=== PATIENT | male | born 1990 | race Hispanic/Latino ===

== ENCOUNTER 2022-09-21 15:24 | Emergency (ER) | payer MEDICAID ==
[~2022-09-21] VITALS: Ht 167.6 cm; Wt 235.9 kg
[2022-09-21 16:52] LABS: BASOPHILS % (AUTO) 0.3 % (0.0-5.0); EOSINOPHILS % (AUTO) 0.2 % (0.0-8.0); HEMATOCRIT 40.7 % (42-54); LYMPHOCYTES % (AUTO) 7.3 % (21.0-51.0); MEAN CORPUSCULAR HEMOGLOBIN 26.2 pg (27.0-33.0); MEAN CORPUSCULAR HGB CONC 30.7 g/dL (32.0-36.0); MEAN CORPUSCULAR VOLUME 85.3 fL (79-99); MONOCYTES % (AUTO) 4.3 % (3.0-13.0); NEUTROPHILS % (AUTO) 87.3 % (40.0-77.0); PLATELET COUNT (AUTO) 283 K/uL (130-400); RED BLOOD CELL COUNT(AUTO) 4.77 MIL/uL (4.50-6.20); RED CELL DISTRIBUTION WIDTH 15.7 % (11.0-15.5)
[2022-09-21 17:30] LABS: CARBON DIOXIDE 28 mmol/L (21-32); CHLORIDE 102 mmol/L (101-111); CREATININE 1.2 mg/dL (0.5-1.5); GLOMERULAR FILTR. RATE CALC 82 mL/min (>90); GLUCOSE,RANDOM 132 mg/dL (70-105); POTASSIUM 4.5 mmol/L (3.5-5.1); SODIUM SERUM 137 mmol/L (136-145); UREA NITROGEN, BLOOD 11 mg/dL (7-18)
[2022-09-21 17:35] LABS: ALANINE AMINOTRANSFERASE 50 U/L (12-78); ALBUMIN 3.5 g/dL (3.5-5.0); ASPARTATE AMINOTRANSFERASE 24 U/L (10-37); TOTAL PROTEIN, SERUM 7.9 g/dL (6.0-8.3)
[2022-09-21 17:36] LABS: LIPASE < 50 U/L (114-286)
[2022-09-21 19:55] LABS: APPEARANCE,URINE CLEAR (CLEAR); BILIRUBIN,URINE NEGATIVE (NEGATIVE); COLOR,URINE COLORLESS (YELLOW); GLUCOSE, URINE (UA) NEGATIVE (NEGATIVE); KETONES,URINE NEGATIVE (NEGATIVE); LEUKOCYTE ESTERASE ,URINE NEGATIVE Leu/uL (NEGATIVE); NITRATE,URINE NEGATIVE (NEGATIVE); OCCULT BLOOD,URINE NEGATIVE (NEGATIVE); PROTEIN,URINE NEGATIVE (NEGATIVE); UROBILINOGEN,URINE 0.2 mg/dL (0.2-1.0)
[2022-09-21 19:57] LABS: RBC,URINE 0-1 /HPF (0-1); WBC,URINE 0-1 /HPF (0-1)
[2022-09-21] MEDS ORDERED: OMEP20TA2 PO (20:06)
[2022-09-21] MEDS ORDERED: ONDA-104 PO (20:06)
[2022-09-21] MEDS ORDERED: 0.9%NACL 1000ML 1,000 ML IV ONE (20:30)
[2022-09-21] MEDS ORDERED: ONDANSETRON 4MG INJ IVP ONE (20:30)
[2022-09-21 21:03] VITALS: BP 133/74
== END 2022-09-21 21:30 | disposition home or self-care (01) ==
LOC: EDH 15:24
DX: R11.2 Nausea with vomiting, unspecified (principal); M54.9 Dorsalgia, unspecified; Z90.49 Acquired absence of other specified parts of digestive tract
CPT/HCPCS: 99283; 96374; 96361; 80053; 83690; 85025; 81001; 36415; J7030; J2405

== ENCOUNTER 2024-02-22 19:55 | Emergency (ER) | payer MEDICAID ==
[~2024-02-22] VITALS: Ht 167.6 cm; Wt 230.9 kg
[~2024-02-22 19:55] MED LIST: OMEP20TA2 PO; ONDA-104 PO
[2024-02-22] MEDS ORDERED: ONDANSETRON 4MG INJ IVP ONE (20:30)
[2024-02-22] MEDS ORDERED: KETOROLAC 30MG VIAL (30MG/ML) IVP ONE (20:30)
[2024-02-22] MEDS ORDERED: 0.9%NACL 1000ML 1,000 ML IV ONE (20:30)
[2024-02-22 20:59] LABS: BASOPHILS # (AUTO) 0.04 K/uL (0.00-0.20); BASOPHILS % (AUTO) 0.3 % (0.0-5.0); EOSINOPHILS # (AUTO) 0.03 K/uL (0.00-0.70); EOSINOPHILS % (AUTO) 0.2 % (0.0-8.0); HEMATOCRIT 38.3 % (42-54); IMMATURE GRANULOCYTE ABSOLUTE 0.09 K/uL (0-1); LYMPHOCYTES # (AUTO) 1.5 K/uL (1.0-4.8); LYMPHOCYTES % (AUTO) 12.3 % (21.0-51.0); MEAN CORPUSCULAR HEMOGLOBIN 24.4 pg (27.0-33.0); MEAN CORPUSCULAR HGB CONC 30.8 g/dL (32.0-36.0); MEAN CORPUSCULAR VOLUME 79.3 fL (79-99); MONOCYTES # (AUTO) 0.8 K/uL (0.1-1.0); MONOCYTES % (AUTO) 6.7 % (3.0-13.0); NEUTROPHILS # (AUTO) 9.9 K/uL (1.8-7.7); NEUTROPHILS % (AUTO) 79.8 % (40.0-77.0); PLATELET COUNT (AUTO) 345 K/uL (130-400); RED BLOOD CELL COUNT(AUTO) 4.83 MIL/uL (4.50-6.20); RED CELL DISTRIBUTION WIDTH 15.9 % (11.0-15.5); WHITE BLOOD COUNT (AUTO) 12.4 K/uL (4.8-10.8)
[2024-02-22 21:13] LABS: CREATININE 1.1 mg/dL (0.5-1.3); POTASSIUM 3.6 mmol/L (3.5-5.1)
[2024-02-22 21:18] LABS: ALBUMIN 3.4 g/dL (3.5-5.0); BILIRUBIN,TOTAL 0.6 mg/dL (0.2-1.0); TOTAL PROTEIN, SERUM 8.7 g/dL (6.0-8.3)
[2024-02-22 21:48] LABS: APPEARANCE,URINE CLEAR (CLEAR); BILIRUBIN,URINE NEGATIVE (NEGATIVE); COLOR,URINE COLORLESS (YELLOW); GLUCOSE, URINE (UA) NEGATIVE (NEGATIVE); KETONES,URINE NEGATIVE (NEGATIVE); LEUKOCYTE ESTERASE ,URINE NEGATIVE Leu/uL (NEGATIVE); NITRATE,URINE NEGATIVE (NEGATIVE); OCCULT BLOOD,URINE NEGATIVE (NEGATIVE); PH,URINE 6.5 (5.0-8.0); PROTEIN,URINE NEGATIVE (NEGATIVE); UROBILINOGEN,URINE 0.2 mg/dL (0.2-1.0)
[2024-02-22 21:57] LABS: ADD UA MICROSCOPIC YES
[2024-02-22 21:59] LABS: WBC,URINE 0-1 /HPF (0-1)
[2024-02-22] MEDS ORDERED: METR-172 PO (22:04)
[2024-02-22] MEDS ORDERED: DICY20TA2 PO (22:04)
[2024-02-22] MEDS ORDERED: ONDA-243 PO (22:04)
[2024-02-22] MEDS: DICYCLOMINE 20MG (10MG/ML) AMP IM ONE (22:46)
[2024-02-22 22:53] VITALS: BP 146/84; PULSE 61; RESP 18; O2SAT 98
== END 2024-02-22 22:56 | disposition home or self-care (01) ==
LOC: EDH 19:55
DX: A08.4 Viral intestinal infection, unspecified (principal); R11.2 Nausea with vomiting, unspecified; R10.84 Generalized abdominal pain; Z79.899 Other long term (current) drug therapy
CPT/HCPCS: 99283; 80053; 83690; 85025; 81001; 36415; 96372; J0500

== ENCOUNTER 2024-10-29 13:34 | Emergency (ER) | payer MEDICAID ==
[~2024-10-29] VITALS: Ht 167.6 cm; Wt 226.8 kg
[~2024-10-29 13:34] MED LIST changes: +DICY20TA2 PO; +METR-172 PO; +ONDA-243 PO
--- NOTE | 2024-10-29 13:49 | ERN ---
ED Note History of Present Illness Stated Complaint: ABD ISSUES CONSTIPATION Chief Complaint: Constipation Time Seen by MD: 13:34 Time Seen by Midlevel: 13:34 Dictation: This is a 34-year-old male with no past medical history who presents to the emergency department with complaints of left side abdominal pain, nausea and nonbloody vomiting, constipation. Reports not having a bowel movement for three weeks. Denies any fevers. Allergies: Coded Allergies: No Known Allergies (Unverified Allergy, Unknown, 09/21/22) Home Meds Discontinued Scripts Dicyclomine HCl (Bentyl) 20 Mg Tab, 20 MG PO Q6HPRN PRN for ABDOMINAL CRAMPING, #15 TAB Prov:MIRLANDE NUNEZ NP 02/22/24 Metronidazole (Metronidazole) 500 Mg Tablet, 500 MG PO TID for 5 Days, #15 TAB Prov:MIRLANDE NUNEZ NP 02/22/24 Ondansetron (Ondansetron Odt) 4 Mg Tab.rapdis, 4 MG PO Q6HPRN PRN for nausea, #16 TAB 0 Refills Prov:MIRLANDE NUNEZ NP 02/22/24 Ondansetron HCl (Ondansetron HCl) 4 Mg Tablet, 4 MG PO TIDP PRN for VOMITING, #30 TAB Prov:PONCHO DASILVA MD 09/21/22 Omeprazole Magnesium (Prilosec Otc) 20 Mg Tablet.dr, 40 MG PO DAILY, #60 TAB Prov:PONCHO DASILVA MD 09/21/22 Past Medical History Past Medical History: No Pertinent History, Other Additional Past Medical Hx: OBESE Surgical History: None Family History: HTN Social History: Negative RN Note Reviewed/Agreed w/PFSH: Yes Review of System Dictation Constitutional: Negative for fever,chills, and weight loss Eyes: Negative for injury, pain,redness, and discharge ENT: Negative for injury,pain or swelling Cardiovascular: Negative for chest pain, palpitations, and edema Respiratory: Negative for shortness of breath, cough, and wheezing, Abdomen/GI: Negative for , diarrhea, and constipation positive for abdominal pain, nausea, vomiting Back: Negative for injury and pain : Negative for injury, bleeding and discharge MS/Extremity: Negative for injury and deformity Skin: Negative for rash, and discoloration Neuro: Negative for headache, weakness, numbness, tingling, and seizure Psych: Negative for suicide ideation, homicidal ideation, and hallucinations Initial Vital Sign VS Vital Signs Date Time Temp Pulse Resp B/P (MAP) Pulse Ox O2 Delivery O2 Flow Rate FiO2 10/29/24 13:36 98.6 79 20 153/78 96 Room Air 10/29/24 13:45 0 21 Physical Exam Dictation Vital Signs reviewed General Appearance: Alert, oriented x 3, no acute distress, well developed, nourished. Obese Head and Face: non-traumatic. Eyes: PERRL, pink conjunctivas, eyelid no trauma, anterior chamber with arcus senilis. Ears: Pinnas intact and no signs of trauma or erythema ear canals clear and no discharge TM no erythema Nose: No discharge, no bleeding. Oropharynx: Mouth normal, tongue pink. pharynx clear,no erythema, tonsils no exudates, no abscesses noted, mucous membrane moist Neck: Supple, non-tender, no thyromegaly, no masses, no JVD, no bruits Breast:Deferred Chest:No tenderness, no crepitus, no paradoxical movement, no retractions Lungs:Clear, well-ventilated, symmetric, no rales, no wheezing, no rhonchi, no stridor, good breath sounds bilaterally Heart: Regular rate, regular rhythm, no murmur, no gallops Vascular: no peripheral edema, Abdomen: Soft, positive bowel sounds, nondistended, no guarding, nontender, no rebound, no masses no hepatomegaly, no splenomegaly, no Camp's sign, no hernias. Rectal: Deferred Genital: Deferred Neurological: Normal speech, motor function intact, sensory function intact Musculoskeletal: Neck nontender, full range of motion, back nontender, full range of motion, Extremities: nontender, full range of motion Skin: Color pink, dry, no turgor, no rash, no lacerations, no abrasions, no contusions. Lymphatic: Deferred Results (Laboratory/Radiology) Laboratory/Radiology Laboratory Tests Test 10/29/24 14:11 10/29/24 14:22 White Blood Count 14.1 K/uL (4.8-10.8) H Red Blood Count 4.40 MIL/uL (4.50-6.20) L Hemoglobin 10.1 g/dL (14.0-18.0) L Hematocrit 33.7 % (42-54) L Mean Corpuscular Volume 76.6 fL (79-99) L Mean Corpuscular Hemoglobin 23.0 pg (27.0-33.0) L Mean Corpuscular Hemoglobin Concent 30.0 g/dL (32.0-36.0) L Red Cell Distribution Width 15.5 % (11.0-15.5) Platelet Count 399 K/uL (130-400) Mean Platelet Volume 9.7 fL (7.5-10.5) Immature Granulocyte % (Auto) 0.8 % (0-1) Neutrophils (%) (Auto) 85.1 % (40.0-77.0) H Lymphocytes (%) (Auto) 9.4 % (21.0-51.0) L Monocytes (%) (Auto) 4.4 % (3.0-13.0) Eosinophils (%) (Auto) 0.1 % (0.0-8.0) Basophils (%) (Auto) 0.2 % (0.0-5.0) Neutrophils # (Auto) 12.0 K/uL (1.8-7.7) H Lymphocytes # (Auto) 1.3 K/uL (1.0-4.8) Monocytes # (Auto) 0.6 K/uL (0.1-1.0) Eosinophils # (Auto) 0.02 K/uL (0.00-0.70) Basophils # (Auto) 0.03 K/uL (0.00-0.20) Absolute Immature Granulocyte (auto 0.11 K/uL (0-1) Nucleated Red Blood Cells 0.0 % (0.0-0.19) White Cell Morphology Comment See comments Red Blood Cell Morphology See comments Sodium Level 137 mmol/L (136-145) Potassium Level 4.0 mmol/L (3.5-5.1) Chloride Level 103 mmol/L (101-111) Carbon Dioxide Level 27 mmol/L (21-32) Blood Urea Nitrogen 12 mg/dL (7-18) Creatinine 1.0 mg/dL (0.5-1.3) Glomerular Filtration Rate Calc 101 mL/min (>90) Random Glucose 120 mg/dL (70-105) H Total Calcium 8.6 mg/dL (8.5-10.1) Lipase 13 U/L (16-77) L Urine Color COLORLESS (YELLOW) Urine Appearance CLEAR (CLEAR) Urine pH 6.5 (5.0-8.0) Urine Specific Mikado 1.001 (1.001-1.031) Urine Protein NEGATIVE mg/dL (NEGATIVE) Urine Glucose (UA) NEGATIVE mg/dL (NEGATIVE) Urine Ketones NEGATIVE mg/dL (NEGATIVE) Urine Occult Blood NEGATIVE (NEGATIVE) Urine Nitrate NEGATIVE (NEGATIVE) Urine Bilirubin NEGATIVE mg/dL (NEGATIVE) Urine Urobilinogen 0.2 mg/dL (0.2-1.0) Urine Leukocyte Esterase NEGATIVE Kelly/uL Urine Opiates Screen NEGATIVE (NEGATIVE) Urine Barbiturates Screen NEGATIVE (NEGATIVE) Urine Phencyclidine Screen NEGATIVE (NEGATIVE) Urine Amphetamines Screen NEGATIVE (NEGATIVE) Urine Benzodiazepines Screen NEGATIVE (NEGATIVE) Urine Cocaine Screen NEGATIVE (NEGATIVE) Urine Marijuana (THC) Screen NEGATIVE (NEGATIVE) Labs Reviewed?: Yes ED Course ED Course Orders Procedure Category Date Status Time Cbc With Differential LAB 10/29/24 Complete 13:43 0.9%Nacl 1000ml (Ns PHA 10/29/24 Complete 1000ml) 14:00 Ondansetron 4mg Inj PHA 10/29/24 Complete (Zofran 4mg Inj) 14:00 Lipase LAB 10/29/24 Complete 13:43 Basic Metabolic Panel LAB 10/29/24 Complete 13:43 Urinalysis Profile LAB 10/29/24 Complete 13:43 Ct Abdomen/Pelvis W/O CT 10/29/24 Resulted Contrast 13:47 Drug Screen Urine LAB 10/29/24 Complete 14:33 Magnesium Citrate PHA 10/29/24 Complete (Magnesium Citrate) 15:30 Ondansetron 4mg Inj PHA 10/29/24 Complete (Zofran 4mg Inj) 15:30 Metoclopramide 10 PHA 10/29/24 Complete Mg/2 Ml Vial (Reglan 1 16:30 Current Medications Medications (Trade) Dose Ordered Sig/Checo Route PRN Reason Start Time Stop Time Status Last Admin Dose Admin Magnesium Citrate (Magnesium Citrate) 296 ml ONCE ONCE PO 10/29/24 15:30 10/29/24 15:31 DC 10/29/24 15:30 Metoclopramide HCl (regLAN 10MG IV) 10 mg ONCE ONCE IVP 10/29/24 16:30 10/29/24 16:31 DC 10/29/24 16:19 Ondansetron HCl (zoFRAN 4MG INJ) 4 mg ONCE ONCE IVP 10/29/24 14:00 10/29/24 14:01 DC 10/29/24 14:32 Ondansetron HCl (zoFRAN 4MG INJ) 4 mg ONCE ONCE IVP 10/29/24 15:30 10/29/24 15:31 DC 10/29/24 15:30 Sodium Chloride 1,000 ml @ 0 mls/hr ONCE ONCE IV 10/29/24 14:00 10/29/24 14:01 DC 10/29/24 14:32 Vital Signs Date Time Temp Pulse Resp B/P (MAP) Pulse Ox O2 Delivery O2 Flow Rate FiO2 10/29/24 15:02 98.1 76 18 138/76 96 Room Air* 0 21 10/29/24 13:45 97.9 74 22 138/88 95 Room Air* 0 21 10/29/24 13:36 98.6 79 20 153/78 96 Room Air Medical Decision Making MDM This is a 34-year-old male with no past medical history who presents to the emergency department with complaints of left side abdominal pain, nausea and nonbloody vomiting, constipation. Reports not having a bowel movement for three weeks. Denies any fevers. CBC showed leukocytosis, microcytic anemia, she showed no electrolyte imbalance, normal renal function, negative lipase, urinalysis and toxicology negative. CT abdomen pelvis showed limited study due to large body habitus. Necessary fat stranding may be present mid and lower abdomen possibly surrounding the sigmoid colon related to peptic colitis. Patient with no fevers at home, no diarrhea. Patient did had three episodes of nonbloody emesis in ER. I discussed the patient is a need for admission due continues vomiting and possible colitis. At this time patient would not like to be admitted at the hospital with preferred to go home and do home treatment.Had a long discussion with patient and mother about the risk and benefits of being admitted to the hospital . They agree that if patient is able to tolerate po intake than he can possibly go home. Reports that Reglan was more helpful with the vomiting and patient was able to tolerated p.o. intake. Patient reports he feels well and wants to go home. Patient will be discharged antiemetic medications and instructed to follow up with PCP. Patient instructed to return if symptoms worsen. Patient currently in no acute distress. On physical exam patient with no tenderness to abdomen, stable vital signs. Nontoxic appearance. Differential diagnosis: Constipation, bowel obstruction, electrolyte imbalance Need for hospitalization: Patient does not meet criteria for hospitalization. There are no social concerns with this patient. DX & DISP Disposition: Discharge Departure Impression: Primary Impression: Constipation Additional Impressions: Colitis, Nausea & vomiting, Leukocytosis Condition: Stable Scripts Lactulose (Lactulose) 10 Gram/15 Ml Solution 30 ML PO BID for constipation, #500 ML 0 Refills Prov: ÓSCAR CARIAS [employer] 525 Metoclopramide HCl (Reglan) 5 Mg Tab 1-2 TAB PO Q6HPRN PRN for nausea, #30 TAB 0 Refills Prov: ARETHAÓSCAR [employer] 5//25 Ciprofloxacin HCl (Cipro) 500 Mg Tablet 1 TAB PO BID for 10 Days, #20 TAB 0 Refills Prov: ÓSCAR CARIAS [employer] 5/25 Additional Instructions: Please follow up with your primary doctor in 1-2 days. Take your medications as prescribed. Continue oral hydration as tolerated. If symptoms worsen please return to ER. FOLLOW-UP WITH PRIMARY CARE PROVIDER IN 1 TO 2 DAYS. TAKE MEDICATIONS DIRECTED HERE IN THE EMERGENCY ROOM. OKAY TO CONTINUE HOME MEDICATIONS UNLESS OTHERWISE DISCUSSED DURING YOUR VISIT IN THE EMERGENCY ROOM TODAY. RETURN TO YOUR NEAREST EMERGENCY ROOM IF SYMPTOMS WORSEN OR IF THERE IS NO IMPROVEMENT. CALL 911 IF YOU NEED IMMEDIATE ASSISTANCE. TAKE TYLENOL OR MOTRIN [id number] NEEDED AND IF NO CONTRAINDICATIONS ARE PRESENT. INCREASE ORAL HYDRATION. A WOUND CULTURE OR URINE CULTURE WAS ORDERED HERE IN THE EMERGENCY ROOM DEPARTMENT PLEASE FOLLOW-UP WITH PRIMARY CARE PROVIDER AND ADVISE THEM TO GET REPEAT PORTS FROM OUR FACILITY. IF YOU HAD ANY ERICKA WRAP/SPLINTS THAT WERE APPLIED HERE, PLEASE DO NOT REMOVE THEM UNTIL YOU SEE YOUR PRIMARY CARE OR SPECIALTY. Referrals: HOMA HERNANDEZ MD (PCP) Time of Disposition: 17:44 I have reviewed the case, and I agree with, Diagnosis and Plan ÓSCAR CARIAS October 29, 2024 13:49
--- NOTE | 2024-10-29 14:05 | NUR ---
SPOKE TO ER CHARGE NURSE CHANDAN, PENDING PATIENT TO BE WEIGHED FOR CT EXAM. NEED TO MAKE SURE PATIENT DOES NOT EXCEED CT TABLE WEIGHT LIMIT.
--- NOTE | 2024-10-29 14:15 | NUR ---
WEIGHT 470.4 LBS AT THE MOMENT
[2024-10-29 14:24] LABS: BASOPHILS # (AUTO) 0.03 K/uL (0.00-0.20); BASOPHILS % (AUTO) 0.2 % (0.0-5.0); EOSINOPHILS # (AUTO) 0.02 K/uL (0.00-0.70); EOSINOPHILS % (AUTO) 0.1 % (0.0-8.0); HEMATOCRIT 33.7 % (42-54); IMMATURE GRANULOCYTE ABSOLUTE 0.11 K/uL (0-1); LYMPHOCYTES # (AUTO) 1.3 K/uL (1.0-4.8); LYMPHOCYTES % (AUTO) 9.4 % (21.0-51.0); MEAN CORPUSCULAR VOLUME 76.6 fL (79-99); MONOCYTES # (AUTO) 0.6 K/uL (0.1-1.0); MONOCYTES % (AUTO) 4.4 % (3.0-13.0); NEUTROPHILS % (AUTO) 85.1 % (40.0-77.0); PLATELET COUNT (AUTO) 399 K/uL (130-400); RED CELL DISTRIBUTION WIDTH 15.5 % (11.0-15.5); WHITE BLOOD COUNT (AUTO) 14.1 K/uL (4.8-10.8)
[2024-10-29 14:32] LABS: APPEARANCE,URINE CLEAR (CLEAR); BILIRUBIN,URINE NEGATIVE (NEGATIVE); COLOR,URINE COLORLESS (YELLOW); GLUCOSE, URINE (UA) NEGATIVE (NEGATIVE); KETONES,URINE NEGATIVE (NEGATIVE); LEUKOCYTE ESTERASE ,URINE NEGATIVE Leu/uL (NEGATIVE); NITRATE,URINE NEGATIVE (NEGATIVE); OCCULT BLOOD,URINE NEGATIVE (NEGATIVE); PH,URINE 6.5 (5.0-8.0); PROTEIN,URINE NEGATIVE (NEGATIVE); UROBILINOGEN,URINE 0.2 mg/dL (0.2-1.0)
[2024-10-29] MEDS: ondanSETRON 4MG INJ IVP ONE ×2 (14:32→15:30)
[2024-10-29] MEDS: 0.9%NACL 1000ML 1,000 ML IV ONE (14:32)
[2024-10-29 14:33] LABS: ADD UA MICROSCOPIC NO
--- NOTE | 2024-10-29 14:51 | HMCIMG ---
CT ABDOMEN/PELVIS W/O CONTRAST HISTORY: Left-sided abdominal pain COMPARISON: None TECHNIQUE: Multiple sequential axial images of the abdomen and pelvis were obtained from the dome of the diaphragm through symphysis pubis. Patient was not given contrast through intravenous route. Oral contrast was not given. FINDINGS: No pleural effusion is seen bilaterally. There are two 3 mm right lower lobe pulmonary nodules. The study is limited due to patient's large body habitus. Degenerative changes of the thoracolumbar spine are present. The heart is not enlarged. Fatty changes of the liver are noted. Mesenteric fat stranding may be present in the mid and lower abdomen possibly surrounding the sigmoid colon may be related to peptic colitis in this limited study. No definite focal abscess is seen. Liver measures 21 cm. Postcholecystectomy changes seen. The liver, spleen, adrenal glands and pancreas are unremarkable. There is no evidence of hydronephrosis bilaterally. No evidence of renal stone is seen. Fecal material is seen in the colon. There are normal size retroperitoneal and mesenteric lymph nodes. No ascites is seen. Appendix is not seen in the evaluation. Acute appendicitis cannot be excluded. Pelvic sidewalls are symmetric bilaterally. The bladder is poorly distended. IMPRESSION: 1. Limited study due to motion artifacts and patient's large body habitus. Mesenteric fat stranding may be present in the mid and lower abdomen possibly surrounding the sigmoid colon may be related to peptic colitis in this limited study. No definite focal abscess is seen. CT was performed with one or more following dose reduction techniques: automated exposure control, adjustment of the mA and kv according to patient's size, or use of a iterative reconstruction technique.
[2024-10-29] MEDS: MAGNESIUM CITRATE 296 ML SOLUTION PO ONE (15:30)
[2024-10-29 16:09] LABS: AMPHET/METH SCREEN,URINE NEGATIVE (NEGATIVE); BARBITURATE SCREEN, URINE NEGATIVE (NEGATIVE); BENZODIAZEPINES SCREEN,URINE NEGATIVE (NEGATIVE); CANNABINOID SCREEN,URINE NEGATIVE (NEGATIVE); COCAINE SCREEN,URINE NEGATIVE (NEGATIVE); OPIATE SCREEN,URINE NEGATIVE (NEGATIVE); PHENCYCLIDINE SCREEN,URINE NEGATIVE (NEGATIVE)
[2024-10-29] MEDS: metoCLOPRAmide 10 MG/2 ML VIAL IVP ONE (16:19)
--- NOTE | 2024-10-29 17:36 | NUR ---
NO HOME MEDICATIONS PER PT.
[2024-10-29 17:47] VITALS: BP 127/68; PULSE 78; RESP 17; TEMP 98.7; O2SAT 98
[2024-10-29] MEDS ORDERED: CIPR-278 PO (17:49)
[2024-10-29] MEDS ORDERED: LACT-441 PO (17:49)
[2024-10-29] MEDS ORDERED: METO5 PO (17:49)
--- NOTE | 2024-10-29 17:57 | NUR ---
PT AAOX4, PT IS STABLE NO DISTRESS, VITALS WNL PT ABLE TO TOLERATE MAG CITRATE MEDICATION, STATES HE FEELS BETTER, AND READY TO GO HOME, IV REMOVED CATHETER INTACT. PT GIVEN RX FOR HOME WILL START TODAY. PT TAKEN OUT IN W/C DRIVEN HOME BY MOTHER.
== END 2024-10-29 18:08 | disposition home or self-care (01) ==
LOC: EDH 13:34
DX: K52.9 Noninfective gastroenteritis and colitis, unspecified (principal); K59.00 Constipation, unspecified; D72.829 Elevated white blood cell count, unspecified; Z79.899 Other long term (current) drug therapy
CPT/HCPCS: 99285; 74176; 96374; 96375; 80048; 80305; 83690; 85025; 36415; 96376; 81003; J7030; J2405 ×2; J2765

== ENCOUNTER 2025-03-25 14:37 | Emergency (ER) | payer MEDICAID ==
[~2025-03-25] VITALS: Ht 167.6 cm; Wt 185.1 kg
[~2025-03-25 14:37] MED LIST changes: +CYCL7.5T27 PO; -DICY20TA2 PO; +IBUP-2076 PO; -METR-172 PO; -OMEP20TA2 PO; -ONDA-104 PO; -ONDA-243 PO
[2025-03-25 14:48] VITALS: BP 136/86; PULSE 100; RESP 18; TEMP 98.3; O2SAT 98
--- NOTE | 2025-03-25 16:26 | HMCIMG ---
EXAM: CR right Knee, 3 View. CLINICAL HISTORY: knee pain COMPARISON: None provided. FINDINGS: BONES: No acute fracture or aggressive appearing osseous lesion. JOINTS: Mild to moderate tricompartmental degenerative changes SOFT TISSUES: The soft tissues are unremarkable. IMPRESSION: Mild to moderate tricompartmental degenerative changes /[place]
[2025-03-25] MEDS ORDERED: KETO10TA2 PO (16:49)
--- NOTE | 2025-03-25 16:50 | ERN ---
General Chief Complaint: Knee Injury/Swelling Stated Complaint: KNEE PAIN Time Seen by MD: 14:41 Time Seen by Midlevel: 14:41 Source: patient History of Present Illness Initial Comments 54-year-old morbidly obese male presents to the emergency department for evaluation of pain. Patient states left knee pain started out of nowhere. Denies any direct injury to the area. Allergies: Coded Allergies: No Known Allergies (Unverified Allergy, Unknown, 09/21/22) Home Meds Active Scripts Ketorolac Tromethamine (Ketorolac Tromethamine) 10 Mg Tablet, 1 TAB PO TID for pain for 5 Days, #15 TAB 0 Refills Prov:SEKOU FULTON 03/25/25 Cyclobenzaprine HCl (Cyclobenzaprine HCl) 7.5 Mg Tablet, 1 TAB PO BID for spasm for 5 Days, #10 TAB 0 Refills Prov:AMARIS JAIMES MD 03/08/25 Ibuprofen (Ibuprofen) 400 Mg Tablet, 1 TAB PO TID for pain or fever for 10 Days, #30 TAB 0 Refills Prov:AMARIS JAIMES MD 03/08/25 Past Medical History Past Medical History: Other Medical History Other: COLON MASS Past Surgical History: Other Surgical History Other: COLON RESECTION WITH COLOSTOMY BAG Family History Family History: HTN Social History Social History: Negative ROS Dictation CONSTITUTIONAL: Negative except for HPI HEAD/FACE: Negative except for HPI EENT: Negative except for HPI RESPIRATORY: Negative except for HPI GASTROINTESTINAL/ABDOMINAL: Negative except for HPI GENITOURINARY: Negative except for HPI MUSCULOSKELETAL: Negative except for HPI INTEGUMENTARY: Negative except for HPI NEUROLOGICAL/PSYCH: Negative except for HPI HEMATOLOGIC/LYMPHATIC: Negative except for HPI All Systems Negative, Except as noted above. 13 point review of systems assessed and all negative except for above. Physical Exam Physical Exam Dictation Vital Signs reviewed General Appearance: Alert, oriented x 3, no acute distress, morbidly obese Head and Face: non-traumatic. Eyes: PERRL, pink conjunctivas, eyelid no trauma, anterior chamber with arcus senilis. Ears: Pinnas intact and no signs of trauma or erythema ear canals clear and no discharge TM no erythema Nose: No discharge, no bleeding. Oropharynx: Mouth normal, tongue pink, pharynx clear,no erythema, tonsils no exudates, no abscesses noted, mucous membrane moist Neck: Supple, non-tender, no thyromegaly, no masses, no JVD, no bruits Breast:Deferred Chest:No tenderness, no crepitus, no paradoxical movement, no retractions Lungs:Clear, well-ventilated, symmetric, no rales, no wheezing, no rhonchi, no stridor, good breath sounds bilaterally Heart: Regular rate, regular rhythm, no murmur, no gallops Vascular: no peripheral edema, Abdomen: Soft, positive bowel sounds, nondistended, no guarding, nontender, no rebound, no masses no hepatomegaly, no splenomegaly, no Camp's sign, no hernias. Rectal: Deferred Genital: Deferred Neurological: Normal speech, motor function intact, sensory function intact Musculoskeletal: Neck nontender, full range of motion, back nontender, full range of motion, Extremities: nontender, full range of motion Skin: Color pink, dry, no turgor, no rash, no lacerations, no abrasions, no contusions. Lymphatic: Deferred MDM MDM: Differential diagnosis: Fracture, contusion, dislocation There are no social concerns with this patient. Prescription drug management Prescriptions will include: ketorolac Medical management and examination interpretation discussions were had by me with other qualified healthcare professionals as indicated for the patient's care. ED Course Orders Procedure Category Date Status Time Knee 3vws Lt RAD 03/25/25 Resulted 15:21 Vital Signs Date Time Temp Pulse Resp B/P (MAP) Pulse Ox O2 Delivery O2 Flow Rate FiO2 03/25/25 14:48 98.2 100 18 136/86 98 Room Air* 0 21 03/25/25 14:40 98.2 106 12 132/89 97 Room Air DX & DISP Disposition: Discharge Departure Impression: Primary Impression: Arthritis of left knee Condition: Stable Scripts Ketorolac Tromethamine (Ketorolac Tromethamine) 10 Mg Tablet 1 TAB PO TID for pain for 5 Days, #15 TAB 0 Refills Prov: SEKOU FULTON 03/25/25 Referrals: MARY LEONARD (PCP) KRISSY CELESTIN MD Time of Disposition: 16:48 I have reviewed the case, and I agree with, Diagnosis and Plan I performed the substantive portion of the visit. I have reviewed and personally made and approve the management plan that is documented in the note by myself or the ALISTAIR. I acknowledge for responsibility for the patient's [place] gement plan. SEKOU FULTON Mar 25, 2025 16:50
== END 2025-03-25 17:01 | disposition home or self-care (01) ==
LOC: EDH 14:37
DX: M17.12 Unilateral primary osteoarthritis, left knee (principal); E66.01 Morbid (severe) obesity due to excess calories; Z68.44 Body mass index [BMI] 60.0-69.9, adult; Z79.1 Long term (current) use of non-steroidal anti-inflammatories (NSAID); Z93.3 Colostomy status; Z79.899 Other long term (current) drug therapy
CPT/HCPCS: 73562; 99283

== ENCOUNTER 2025-04-19 19:13 | Inpatient (IN) | payer MEDICAID ==
[~2025-04-19] VITALS: Ht 167.6 cm; Wt 167.1 kg
[~2025-04-19 19:13] MED LIST changes: +KETO10TA2 PO
--- NOTE | 2025-04-19 19:42 | ERN ---
ED Note History of Present Illness Stated Complaint: KNEE PAIN Chief Complaint: Knee Injury/Swelling Time Seen by MD: 19:19 Dictation: Patient is a 35-year-old male morbid obesity who presents to the ER by EMS due to right knee pain, pain has been chronic, today he was only able to walk due to pain, as per patient's he feels that his knee was locked. Patient denies recent fall. Family member at bedside, mother states that patient has been seen by specialists in the was told that he has osteoarthritis. Allergies: Coded Allergies: No Known Allergies (Unverified Allergy, Unknown, 09/21/22) Home Meds Active Scripts Acetaminophen (Tylenol) 500 Mg Tab, 1 TAB PO Q6HPRN PRN for pain or fever for 10 Days, #40 TAB 0 Refills Prov:AMARIS JAIMES MD 04/19/25 Ibuprofen (Ibuprofen) 600 Mg Tablet, 1 TAB PO TID for pain for 10 Days, #30 TAB 0 Refills with food Prov:AMARIS JAIMES MD 04/19/25 Ketorolac Tromethamine (Ketorolac Tromethamine) 10 Mg Tablet, 1 TAB PO TID for pain for 5 Days, #15 TAB 0 Refills Prov:SEKOU FULTON 03/25/25 Cyclobenzaprine HCl (Cyclobenzaprine HCl) 7.5 Mg Tablet, 1 TAB PO BID for spasm for 5 Days, #10 TAB 0 Refills Prov:AMARIS JAIMES MD 03/08/25 Ibuprofen (Ibuprofen) 400 Mg Tablet, 1 TAB PO TID for pain or fever for 10 Days, #30 TAB 0 Refills Prov:AMARIS JAIMES MD 03/08/25 Past Medical History Past Medical History: Other Additional Past Medical Hx: COLON MASS, COLOSTOMY BAG, OBESITY Surgical History: Other Surgical History Other: COLON RESECTION WITH COLOSTOMY BAG Family History: HTN Social History: Negative Review of System Dictation NEGATIVE EXCEPT PER HPI Constitutional: Negative for fever,chills, and weight loss Eyes: Negative for injury, pain,redness, and discharge ENT: Negative for injury,pain or swelling Cardiovascular: denies chest pain, palpitations, and edema Respiratory: Negative for shortness of breath, cough, and wheezing, Abdomen/GI: Negative for abdominal pain, nausea, vomiting, diarrhea, and constipation Back: Negative for injury and pain : Negative for injury, bleeding and discharge MS/Extremity: Right knee pain Skin: Negative for rash, and discoloration Neuro: Negative for headache, weakness, numbness, tingling, and seizure Psych: Negative for suicide ideation, homicidal ideation, and hallucinations Initial Vital Sign VS Vital Signs Date Time Temp Pulse Resp B/P (MAP) Pulse Ox O2 Delivery O2 Flow Rate FiO2 04/19/25 19:15 98.1 101 18 168/119 95 Room Air 0 04/19/25 20:08 21 Physical Exam Dictation General: awake, alert, NAD Head/Face: Normocephalic, atraumatic Eyes: PERRL, EOMI, vision at baseline ENT: oral cavity clear, TMs clear, no signs of infection Neck: Trachea midline, supple, no nuchal rigidity Cardiovascular: RRR, normal S1/S2, No MRGs, no JVD Respiratory: CTAB, no respiratory distress, No rales or wheezes Abdomen: Soft , no tender Skin: Warm, dry, normal turgor, no rash MS/Extremity: Pulses equal, no cyanosis, neurovascular intact, FROM Neuro: COAx4, GCS 15, strength 5/5, CN 2-12 intact, normal cerebellar exam, normal gait, Psych: Normal behavior, mood, and affect normal ED Course ED Course Orders Procedure Category Date Status Time Knee 4+Vws Rt RAD 04/19/25 Resulted 19:31 Ketorolac PHA 04/19/25 Complete Tromethamine 30mg/Ml 20:00 Acetaminophen 500mg PHA 04/19/25 Complete Tab (Tylenol 500mg T 20:30 Lidocaine (Lidocaine PHA 04/19/25 Complete Patch 4%) 20:30 Current Medications Medications (Trade) Dose Ordered Sig/Checo Route PRN Reason Start Time Stop Time Status Last Admin Dose Admin Acetaminophen (TYLenol 500MG TAB) 1,000 mg ONCE ONCE PO 04/19/25 20:30 04/19/25 20:34 DC 04/19/25 20:53 Ketorolac Tromethamine (toRADol) 30 mg ONCE ONCE IM 04/19/25 20:00 04/19/25 20:01 DC 04/19/25 20:26 Lidocaine (Lidocaine Patch 4%) 1 each ONCE ONCE TP 04/19/25 20:30 04/19/25 20:34 DC 04/19/25 20:52 Vital Signs Date Time Temp Pulse Resp B/P (MAP) Pulse Ox O2 Delivery O2 Flow Rate FiO2 04/19/25 20:08 98.1 102 18 130/84 93 Room Air* 0 21 04/19/25 19:15 98.1 101 18 168/119 95 Room Air 0 Medical Decision Making MDM Right knee pain chronic Right knee pain acute Possible fracture affecting the knee On physical exam range of motion was within normal limits. There was no pain. Negative for pain during active/passive range of motion. X-ray of right knee ordered. Pain medication ordered. CR right Knee, 3 View. CLINICAL HISTORY: KNEE PAIN COMPARISON: None provided. FINDINGS: Lateral compartment predominant moderate to severe tricompartmental right knee joint osteoarthritis. Small knee joint effusion. No displaced fracture appreciated. Mild infrapatellar bursitis. IMPRESSION: 1. Moderate to severe tricompartmental right knee osteoarthritis, predominantly in the lateral compartment, with small joint effusion. 2. No acute fracture. No acute fracture found. Plan is to discharge home and follow up with the PCP, mother at bedside said the patient can not walk. I explained that patient condition is hemodynamically stable. Patient stated he is still on pain, we will admit him for pain control and case assembler arrangement for social issues. DX & DISP Disposition: Inpatient Decision to Admit Date: Apr 19, 2025 Decision to Admit Time: 21:31 Departure Impression: Primary Impression: Arthritis of left knee Additional Impressions: Intractable pain, Morbid obesity Condition: Stable Scripts Acetaminophen (Tylenol) 500 Mg Tab 1 TAB PO Q6HPRN PRN for pain or fever for 10 Days, #40 TAB 0 Refills Prov: AMARIS JAIMES MD 04/19/25 Ibuprofen (Ibuprofen) 600 Mg Tablet 1 TAB PO TID for pain for 10 Days, #30 TAB 0 Refills with food Prov: AMARIS JAIMES MD 04/19/25 Referrals: MARY LEONARD (PCP) Initially admitted due to intractable pain to his right knee AMARIS JAIMES MD Apr 19, 2025 19:42
--- NOTE | 2025-04-19 20:34 | HMCIMG ---
EXAM: CR right Knee, 3 View. CLINICAL HISTORY: KNEE PAIN COMPARISON: None provided. FINDINGS: Lateral compartment predominant moderate to severe tricompartmental right knee joint osteoarthritis. Small knee joint effusion. No displaced fracture appreciated. Mild infrapatellar bursitis. IMPRESSION: 1. Moderate to severe tricompartmental right knee osteoarthritis, predominantly in the lateral compartment, with small joint effusion. 2. No acute fracture. /[place]
[2025-04-19] MEDS ORDERED: IBUP-1492 PO (20:46)
[2025-04-19] MEDS ORDERED: ACET-66 PO (20:46)
[2025-04-19] MEDS: LIDOCAINE 4% ADH..PATCH TP ONE (20:52)
--- NOTE | 2025-04-19 21:29 | NUR ---
KNEE BRACE APPLIED ORDERED. PATIENT REPORTED UNABLE TO AMBULATE DUE TO RIGHT KNEE PAIN, UNABLE TO SIT INDEPENDENTLY AT BEDSIDE, ED MD AND CHARGE NURSE MADE AWARE.
--- NOTE | 2025-04-19 21:39 | HP ---
History of Present Illness Reason for Visit: knee pain History of Present Illness Mr. Walker is a 35-year-old male that was seen and examined today on 04/19/2025. Patient is a good historian of personal health. Patient's mother is at bedside. Patient reports that he came to the emergency department with a chief complaint of knee pain. Onset is three weeks ago. Duration is on and off. Character is described as aching. Location is right knee. Symptoms are aggravated with physical activity. There was no alleviating factors. Patient reports he has been diagnosed BY an orthopedic doctor in the outpatient setting with osteoarthritis, Dr. Henry three weeks ago. Today in the emergency department no diagnostic labs were done, right knee x-ray shows osteoarthritis. Emergency room physician recommended that patient be admitted so he could be evaluated by orthopedic service. Past Medical History Patient History: Diabetes mellitus FATHER, Onset:Unknown FHx: kidney failure FATHER, Onset:Unknown Hypertension FATHER, Onset:Unknown ADDITIONAL PAST MEDICAL HISTORY: [colon Mass] SOCIAL HISTORY: [Negative for smoking, alcohol use, drug use. Patient lives with his mom, Georgiana Bellamy.] SURGICAL HISTORY: [Colon resection with Colostomy] Review of Systems General: No Fever, No Chills, No Night Sweats, No Fatigue, No Malaise, No Appetite, No Other HEENT: No Head Aches, No Visual Changes, No Eye Pain, No Ear Pain, No Dysphasia, No Sinus Congestion, No Post Nasal Drip, No Sore Throat, No Other Pulmonary: No Dyspnea, No Cough, No Pleuritic Chest Pain, No Other Cardiovascular: No: Chest Pain, Palpitations, Orthopnea, Paroxysmal Noc. Dyspnea, Edema, Lt Headedness, Other Gastrointestinal: No: Nausea, Vomiting, Abdominal Pain, Diarrhea, Constipation, Melena, Hematochezia, Other Genitourinary: No Dysuria, No Frequency, No Incontinence, No Hematuria, No Retention, No Other Musculoskeletal: leg pain; No: other, neck pain, shoulder pain, arm pain, back pain, hand pain, foot pain Skin: No Urticaria, No Rash, No Other Neurological: No: Weakness, Numbness, Incoordination, Change in speech, Confusion, Seizures, Other Allergies: Coded Allergies: No Known Allergies (Unverified Allergy, Unknown, 09/21/22) No Active Prescriptions or Reported Meds Exam Vital Signs Vital Signs Date Time Temp Pulse Resp B/P (MAP) Pulse Ox O2 Delivery O2 Flow Rate FiO2 04/19/25 20:08 98.1 102 18 130/84 93 Room Air* 0 21 General Appearance: Alert, Oriented X3, Cooperative, No acute distress HEENT: Atraumatic, EOMI Respiratory: Clear to auscultation, Normal air movement, NL respiratory effort Cardiovascular: Regular rate, Regular rhythm, Normal S1, Normal S2 Abdominal: Normal bowel sounds, Soft, No tenderness Extremities: No edema Skin: No significant lesion Neuro: Normal speech, Strength at 5/5 X4 ext, Sensation intact, Cranial nerves 3-12 NL Psych/Mental Status: Mental status NL, Mood NL, Thoughts/Content NL Assessment/Plan ASSESSMENT: [ Right knee osteoarthritis, POA Intractable knee pain, POA Obesity, POA] PLAN: [ Admit patient to medical floor as inpatient status. Patient will be followed by orthopedic service, Dr. Henry. Keep patient NPO. IV fluid maintenance therapy lactated Ringer's at 100 mL/HR As needed analgesia with morphine Check preprocedure labs, CBC, BMP, magnesium, phosphorus, PTT, UA, type and screen, EKG, CXR Physical therapy for nine GI prophylaxis, famotidine DVT prophylaxis, Lovenox ADVANCED CARE PLANNING 1. Which of the following were discussed? Hospice Care - Yes Therapeutic options - yes Advance Directives - Yes - patient states he does not have any advance directives in place at this time, however his mother can make decisions for him if he becomes unable Other discussions - patient wishes to remain a full code at this time 2. Discussed with who? Patient 3. Voluntary nature of this service was explained to the patient? Yes 4. Amount of time spent - ___16 minutes____ 5. Reviewed by Physician? (if this service was performed by NPP) Yes This document was generated in part using voice recognition software, occasional wrong word or sound alike substitutions may have occurred due to the inherent limitations of voice recognition software. Read the chart carefully and recognize using context, where the substitutions have occurred. Although every effort was made to edit the content, elementary classroom teacher and typing errors may occur ATTESTATION BY PHYSICIAN I have seen and examined the patient. I reviewed the documentation, medical decision making, and treatment plan as noted by the mid-level provider above. I agree with the findings and plan of care. ] OZZY MALDONADO [facility] Apr 19, 2025 21:39
[2025-04-19] MEDS ORDERED: LACTULOSE 20 GM/30 ML UDCUP PO PRN (22:00)
--- NOTE | 2025-04-19 22:35 | HMCIMG ---
EXAM: CR Chest, 1 View. CLINICAL HISTORY: pre procedural COMPARISON: None provided. FINDINGS: LUNGS: There is no mass, infiltrate, or acute pulmonary abnormality. PLEURAL SPACES: No evidence of pleural effusion or pneumothorax. MEDIASTINUM: There is cardiomegaly BONES: No acute osseous abnormality. IMPRESSION: No acute cardiopulmonary pathology is evident. /[place]
[2025-04-19] MEDS: LACTATED RINGERS 1000ML 1,000 ML IV SCH (23:11)
--- NOTE | 2025-04-19 23:28 | NUR ---
mitzy bank worker at bedside at this time
[2025-04-20] VITALS (8 sets, daily range): BP systolic 131–153; BP diastolic 75–96; PULSE 77–87; RESP 16–22; TEMP 98.2–98.4; O2SAT 97–100
--- NOTE | 2025-04-20 00:09 | NUR ---
report given to cris baca
--- NOTE | 2025-04-20 00:56 | NUR ---
ADMIT NOTE ADMITTED TO ROOM 421 VIA STRETCHER FROM ER, PATIENT AWAKE, ALERT, OX3, NO SOB, NO C/O PAIN AT THIS TIME, RLE WITH IMMOBILIZER INTACT, EXPLAINED TO PATIENT REGARDING BEDREST FOR NOW TILL SABI JUNIOR SEE HIM IN THE MORNING, TEACH PATIENT AND PATIENTS MOTHER PLAN OF CARE AND EXPECTED OUTCOME, BOTH VERBALIZE UNDERSTANDING VIA TEACH BACK
--- NOTE | 2025-04-20 02:56 | EKG ---
[facility] Test Date: 2025-04-19 Test Time: 23:28:20 Pat Name: MARTY BARRON Department: [facility] Room: 421 1 Gender: M Operating Room Surgical Technologist: [id number] : 1990 Requested By: OZZY MALDONADO Order Number: [id number] Reading MD: Rasta Cohen Measurements Intervals [place] Rate: 78 P: 49 ID: [id number] QRS: 16 QRSD: 101 T: 19 QT: 375 QTc: 428 Interpretive Statements Sinus rhythm Compared to ECG 11/16/2024 08:50:56 No significant changes Electronically Signed On 04-20-2025 16:11:53 CDT by Rasta Cohen Please click the below link to view image of tracing.
[2025-04-20 04:52] LABS: IMMATURE GRANULOCYTE ABSOLUTE 0.08 K/uL (0-1); NUCLEATED RED BLOOD CELLS 0.0 % (0.0-0.19); PLATELET COUNT (AUTO) 305 K/uL (130-400); RED BLOOD CELL COUNT(AUTO) 4.55 MIL/uL (4.50-6.20); RED CELL DISTRIBUTION WIDTH 17.8 % (11.0-15.5); WHITE BLOOD COUNT (AUTO) 14.0 K/uL (4.8-10.8)
[2025-04-20 05:00] LABS: CREATININE 0.9 mg/dL (0.5-1.3); GLOMERULAR FILTR. RATE CALC 114.0 mL/min (>90); GLUCOSE,RANDOM 111.0 mg/dL (70-105); INR 1.11 (0.85-1.15); PHOSPHORUS 4.4 mg/dL (2.5-4.9); SODIUM SERUM 141.0 mmol/L (136-145); UREA NITROGEN, BLOOD 17.0 mg/dL (7-18)
[2025-04-20 05:28] LABS: PLATELET MORPHOLOGY LARGE PLTS PRESENT
[2025-04-20] MEDS: FAMOTIDINE 20MG TAB PO SCH (09:15)
[2025-04-20] MEDS: ENOXAPARIN SODIUM 40 MG/0.4 ML SYRINGE SQ SCH (09:16)
--- NOTE | 2025-04-20 09:27 | NUR ---
DCP: HOME Sw met with pt and his mother Lynne Walker [phone] who was at bedside. Mother reports pt lives at home with his parents and his sister. Pt on SSI and requires assistance with bathing dressing grooming, home management, meal prep and transportation. Mother is pt's provider 25 hrs a week thru [employer]. Pt has a walker with seat, cane and CPAP. No HH. Pt is pending Dr Henry to round and discuss plan of care. Mother to discuss after care HH vs Outpt PT with Dr Henry. CM to follow and assist as needed Addendum: 04/20/25 at 0932 by SHAWN CHAPA Amended: Links added.
[2025-04-20 10:16] LABS: % IRON SATURATION 10.6 % (30-44); IRON, SERUM 25.0 mcg/dL (65-175)
--- NOTE | 2025-04-20 13:16 | NUR ---
SPEECH NOTE: QC SCIENTIST coordinated with nurse Mckee. Orders to evaluate patient received; however, as per nurse, order entered by error and will be cancelled. Pt tolerating oral intake with no overt s/s of aspiration. All questions answered. Addendum: 04/20/[address] TOMAS MEJIA Amended: Links added.
--- NOTE | 2025-04-20 13:21 | PN ---
[facility] PROGRESS NOTE Date of Service: Apr 20, 2025 Time of Service: 13:18 SUBJECTIVE: 04/20 the patient has been seen and examined at bedside, case discussed with the RN, no acute events overnight, the time of my visit, the patient is awake, following commands, blood pressure 140/90, afebrile, saturating normal on room air. The patient is morbidly obese, he uses a CPAP at home, currently CPAP at bedside during my visit. WBC 14.0, hemoglobin 10.4, hematocrit 34.8, platelet count of 305. CMP shows sodium 141, potassium 3.5, BUN 70, creatinine 0.9, iron level of 25. X-ray of the knee showing moderate to severe three, power mental right knee osteoarthritis, predominantly in the lateral compartment, with small joint effusion. No acute fracture. Orthopedic physician consultation requested, we will follow input and recommendation. MRI of the right knee requested, however due to morbid obesity, might not be able to do it. Discussed with the mother is at the bedside, all questions answered, in agreement. REVIEW OF SYSTEMS CONSTITUTIONAL: Denies fevers, chills, or night sweats. No unintentional weight loss reported. NEUROLOGICAL: Denies headache, amaurosis fugax, motor weakness, sensory deficit, vertigo/spinning sensation, gait abnormalities, or tremors. ENT: No hearing loss, otalgia, otorrhea, rhinitis, rhinorrhea, hoarseness, or sore throat. CARDIOVASCULAR: Denies any exertional angina, dyspnea on exertion, orthopnea, paroxysmal nocturnal dyspnea, palpitations, life-threatening arrhythmias, claudication. PULMONARY: Denies any shortness of breath, cough, phlegm/sputum, hemoptysis, pleuritic chest pain. SLEEP: Denies morning headaches, daytime somnolence or napping. Denies difficulty falling asleep, staying asleep, waking from sleep. Denies knowledge of snoring. GASTROINTESTINAL: Denies any type of dysphagia to either liquids or solids. Denies nausea, vomiting, pyrosis, early satiety, abdominal pain, diarrhea, constipation, or changes in stool consistency or caliber. Denies coffee-ground emesis, hematemesis, hematochezia, or melanotic stools. GENITOURINARY: Denies frequency, urgency, nocturia, hematuria or incontinence (Storage/Irritative symptoms.) Low urinary stream, straining to void, urinary intermittency or hesitancy, splitting of the voiding stream, terminal dribbling. ENDOCRINOLOGIC: Denies polyuria, polydipsia, polyphagia or heat/cold intolerances. HEMATOLOGIC: Denies thrombophilia/previous clots, or coagulopathy/bleeding disorders. ONCOLOGIC: Denies personal history of malignancy. DERMATOLOGIC: Denies rashes or pruritus. PSYCHIATRIC: Denies any suicidal or homicidal ideation. Denies hallucinations. PHYSICAL EXAM GENERAL APPEARANCE: The patient is awake, alert, and oriented, in no acute cardiopulmonary distress. NEUROLOGICAL: Cranial nerves II-XII grossly intact. Motor is 5/5 in bilateral upper and lower extremities proximal to distal. No sensory deficits. HEENT: Face is symmetric. Pupils are equal and reactive. Extraocular movements are intact. NECK: Supple. No JVD. No thyromegaly. No submental, submandibular, pre- /postauricular, occipital or supraclavicular lymphadenopathy. CHEST: Normal chest expansion. No Telemetry. LUNGS: Absence of any rales, rhonchi or any wheezing. CARDIOVASCULAR: Regular. S1 and S2 normal. No appreciable rubs, murmurs or gallops. ABDOMEN: Soft, nontender, and nondistended. There is no rebound, voluntary guarding, or rigidity. : Deferred. No Doe. EXTREMITIES: Non-edematous and not cyanotic. No clubbing. Good capillary refill. SKIN: No skin breakdown. Vital Signs (last 8hr) Date Time Temp Pulse Resp B/P (MAP) Pulse Ox O2 Delivery O2 Flow Rate FiO2 04/20/25 12:23 Room Air* 0 21 04/20/25 08:40 98.2 80 140/90 94 Room Air 04/20/25 06:32 80 18 21 LABS: Laboratory: Test 04/20/25 04:39 Range/Units White Blood Count 14.0 H 4.8-10.8 K/uL Red Blood Count 4.55 4.50-6.20 MIL/uL Hemoglobin 10.4 L 14.0-18.0 g/dL Hematocrit 34.8 L 42-54 % Mean Corpuscular Volume 76.5 L 79-99 fL Mean Corpuscular Hemoglobin 22.9 L 27.0-33.0 pg Mean Corpuscular Hemoglobin Concent 29.9 L 32.0-36.0 g/dL Red Cell Distribution Width 17.8 H 11.0-15.5 % Platelet Count 305 130-400 K/uL Mean Platelet Volume 11.1 H 7.5-10.5 fL Immature Granulocyte % (Auto) 0.6 0-1 % Neutrophils (%) (Auto) 81.1 H 40.0-77.0 % Lymphocytes (%) (Auto) 10.6 L 21.0-51.0 % Monocytes (%) (Auto) 6.3 3.0-13.0 % Eosinophils (%) (Auto) 1.0 0.0-8.0 % Basophils (%) (Auto) 0.4 0.0-5.0 % Neutrophils # (Auto) 11.4 H 1.8-7.7 K/uL Lymphocytes # (Auto) 1.5 1.0-4.8 K/uL Monocytes # (Auto) 0.9 0.1-1.0 K/uL Eosinophils # (Auto) 0.14 0.00-0.70 K/uL Basophils # (Auto) 0.06 0.00-0.20 K/uL Absolute Immature Granulocyte (auto 0.08 0-1 K/uL Nucleated Red Blood Cells 0.0 0.0-0.19 % Platelet Morphology LARGE PLTS PRESENT Red Blood Cell Morphology ANISO 1+ Prothrombin Time 11.6 9.6-11.6 SEC Prothromb Time International Ratio 1.11 0.85-1.15 Activated Partial Thromboplast Time 25.3 L 26.3-35.5 SEC Sodium Level 141 136-145 mmol/L Potassium Level 3.5 3.5-5.1 mmol/L Chloride Level 104 101-111 mmol/L Carbon Dioxide Level 26 21-32 mmol/L Blood Urea Nitrogen 17 7-18 mg/dL Creatinine 0.9 0.5-1.3 mg/dL Glomerular Filtration Rate Calc 114 >90 mL/min Random Glucose 111 H 70-105 mg/dL Total Calcium 9.1 8.5-10.1 mg/dL Phosphorus Level 4.4 2.5-4.9 mg/dL Magnesium Level 2.10 1.80-2.40 mg/dL Iron Level 25 #L 65-175 mcg/dL Total Iron Binding Capacity 235 L 250-450 mcg/dL Percent Iron Saturation 10.6 L 30-44 % Current Medications Medications (Trade) Dose Ordered Sig/Checo Route PRN Reason Start Time Stop Time Status Last Admin Dose Admin Acetaminophen (TYLenol 325MG TAB) 650 mg Q6H PRN PO TEMPERATURE GREATER THAN 101.5 04/19/25 22:00 05/19/25 21:59 Ceftriaxone Sodium (ROCEphine 1G INJ) 1 gm Q24H IVPB 04/20/25 10:00 04/30/25 09:59 04/20/25 10:42 1 GM Enoxaparin Sodium (Lovenox) 40 mg DAILY SQ 04/20/25 09:00 05/20/25 08:59 04/20/25 09:16 40 MG Famotidine (Pepcid 20mg Tab) 20 mg DAILY PO 04/20/25 09:00 05/20/25 08:59 04/20/25 09:15 20 MG Hydralazine HCl (APRESOLine 20MG INJ) 5 mg Q6H PRN IV For:SBP above 160;DBP above 90 04/20/25 16:00 05/20/25 15:59 Hydralazine HCl (APRESOLine 20MG INJ) 10 mg Q6H PRN IV For:SBP above 160;DBP above 90 04/19/25 22:00 04/20/25 10:52 DC Ketorolac Tromethamine (toRADol) 15 mg Q6H PRN IV MODERATE PAIN (4-6) 04/20/25 11:00 04/25/25 10:59 04/20/25 11:28 15 MG Lactated Ringer's 1,000 ml @ 100 mls/hr Q10H IV 04/19/25 22:00 04/20/25 10:52 DC 04/20/25 09:24 100 MLS/HR Lactulose (Constulose 20gm/ 30ml Udcup) 20 gm BID PRN PO CONSTIPATION 04/19/25 22:00 05/19/25 21:59 Morphine Sulfate (morPHINE 4MG SYG) 4 mg Q4H PRN IVP SEVERE PAIN (7-10) 04/19/25 22:00 04/20/25 10:52 DC Ondansetron HCl (zoFRAN 4MG INJ) 4 mg Q6H PRN IV NAUSEA/VOMITING 04/19/25 22:00 05/19/25 21:59 DIAGNOSTICS / RADIOLOGY: [ ] ASSESSMENT: Right knee osteoarthritis, POA Intractable knee pain, POA Obesity, POA PLAN: the patient has been seen and examined at bedside, case discussed with the RN, no acute events overnight, the time of my visit, the patient is awake, following commands, blood pressure 140/90, afebrile, saturating normal on room air. The patient is morbidly obese, he uses a CPAP at home, currently CPAP at bedside during my visit. WBC 14.0, hemoglobin 10.4, hematocrit 34.8, platelet count of 305. CMP shows sodium 141, potassium 3.5, BUN 70, creatinine 0.9, iron level of 25. X-ray of the knee showing moderate to severe three, power mental right knee osteoarthritis, predominantly in the lateral compartment, with small joint effusion. No acute fracture. Orthopedic physician consultation requested, we will follow input and recommendation. MRI of the right knee requested, however due to morbid obesity, might not be able to do it. Discussed with the mother is at the bedside, all questions answered, in agreement. NEURO: Minimize central acting medications as possible. Fall Precautions. Well lighted room through the day and minimize interruptions through the night to prevent acute delirium. PULMONARY: Supplemental 02 as needed BiPAP as necessary, for respiratory distress Titrate Fio2 to keep Spo2 > or = 90% DuoNebs and CPT as needed IS hourly while awake for pulmonary hygiene prn Out of bed to chair as tolerated Maintain aspiration precautions at all times CARDIOVASCULAR: Follow hemodynamics. Vital signs per facility protocol GI & NUTRITION: Continue nutritional support Aspirations precautions Prokinetic agents and laxatives as needed KIDNEYS & ELECTROLYTES: Strict monitoring of intake and output Daily weights Avoid nephrotoxic agents Monitor electrolytes and replace as needed Goal urine output of 30mL/hr or 0.5mL/kg/hr Medications to be dosed according to renal function. Avoid contrast if possible ENDOCRINE: Maintain blood glucose between 100-180 at all times. Insulin sliding scale for blood glucose management Hypoglycemia and hyperglycemia protocol in place INFECTIOUS DISEASE: Trend temperature, WBC and procalcitonin level Follow cultures, deescalate antibiotics as soon as possible. Panculture if new onset fever HEMATOLOGY & COAGULATION: Monitor H&H. Keep Hgb > 7 Transfuse 1 unit of PRBC for Hgb < 7 Transfuse 1 pack of platelets of platelets < 20, 000 Watch for any signs and symptoms of bleeding SKIN: Pressure ulcer prevention per facility protocol Specialty mattress as needed ORTHO/REHAB Continue PT/OT PRN: MEDICATIONS Tylenol 650 mg po every 4 hrs for fever zofran 4 mg IV every 6 hrs for n/v Hydralazine 5 mg IV every 4 hrs systolic pressure > 160 bowel regiment: lactulose 20 gm PO BID PRN constipation Supportive measures: Continue GI and DVT prophylaxis Disposition: Pending improvement in clinical condition All questions answered time spent: > 35 min TITA PETERSON MD Apr 20, 2025 13:21
--- NOTE | 2025-04-20 20:35 | NUR ---
ASSESS SHIFT ASSESSMENT DONE, PLEASE REFER TO CHART. KEPT RESTED AND COMFORTABLE IN BED. CALL LIGHT WITHIN REACH. FAMILY AT BEDSIDE.
--- NOTE | 2025-04-20 22:25 | NUR ---
ASSIST PT ASSISTED TO USE THE BEDPAN. PT ABLE TO TURN IN BED WITH ASSIST X2. PT STILL HAD LIQUID STOOLS FROM THE ANUS. PT CLEANED AND RE-POSITIONED IN BED. WET PAD CHANGED WELL. PT CLAIMS OF PAINS TO RT LOWER ABDOMEN. TORADOL IV ADMINISTERED FOR PAIN. WILL RE-ASSESS PT.
[2025-04-21] VITALS (10 sets, daily range): BP systolic 96–142; BP diastolic 45–80; PULSE 91–155; RESP 18–22; TEMP 98.3–102.8; O2SAT 95
--- NOTE | 2025-04-21 04:34 | NUR ---
RE-CHECK PT'S TEMPERATURE [id number]=001.6. KEPT COLD PACKS TO HEAD. KEPT ON THIN BLANKET ONLY. ROOM TEMPERATURE COOL. KEPT NPO FOR MRI TODAY. INSERTED SECOND PIV G18 TO RFA. PT TOLERATED INSERTION WELL. FOR MORE CARE.
[2025-04-21 04:40] LABS: NUCLEATED RED BLOOD CELLS 0.0 % (0.0-0.19); PLATELET COUNT (AUTO) 302.0 K/uL (130-400); RED BLOOD CELL COUNT(AUTO) 5.06 MIL/uL (4.50-6.20); RED CELL DISTRIBUTION WIDTH 18.6 % (11.0-15.5); WHITE BLOOD COUNT (AUTO) 12.7 K/uL (4.8-10.8)
[2025-04-21 04:54] LABS: APPEARANCE,URINE TURBID (CLEAR); GLUCOSE, URINE (UA) NEGATIVE (NEGATIVE); LEUKOCYTE ESTERASE ,URINE NEGATIVE Leu/uL (NEGATIVE); NITRATE,URINE NEGATIVE (NEGATIVE); OCCULT BLOOD,URINE NEGATIVE (NEGATIVE)
[2025-04-21 04:55] LABS: ADD UA MICROSCOPIC YES
[2025-04-21 04:57] LABS: SQUAMOUS EPITHELIAL CELL,UR FEW /HPF (0-2); YEAST,URINE BUDDING MOD /HPF (None Seen)
[2025-04-21 05:07] LABS: AMPHET/METH SCREEN,URINE NEGATIVE (NEGATIVE); BARBITURATE SCREEN, URINE NEGATIVE (NEGATIVE); CANNABINOID SCREEN,URINE NEGATIVE (NEGATIVE); COCAINE SCREEN,URINE NEGATIVE (NEGATIVE)
[2025-04-21 05:21] LABS: CREATININE 0.8 mg/dL (0.5-1.3); GLOMERULAR FILTR. RATE CALC 118.0 mL/min (>90); GLUCOSE,RANDOM 113.0 mg/dL (70-105); SODIUM SERUM 141.0 mmol/L (136-145); UREA NITROGEN, BLOOD 17.0 mg/dL (7-18)
[2025-04-21 05:25] LABS: ASPARTATE AMINOTRANSFERASE 59.0 U/L (10-37); TOTAL PROTEIN, SERUM 7.7 g/dL (6.0-8.3)
--- NOTE | 2025-04-21 06:10 | NUR ---
RE-CHECK PT'S TEMPERATURE RE-[id number]=788.8 ORALLY. COLD PACKS APPLIED TO NAPE AND HEAD. PAGED DIRECTOR OF CORPORATE SALES PLATEN DRIER OPERATOR VIA ANSWERING SERVICE. KAITLIN SIMEON CALLED BACK, DIRECTOR OF CORPORATE SALES STATED TO FOLLOW SEPSIS PROTOCOL. NO OTHER ORDERS GIVEN.
[2025-04-21] MEDS: LIDOCAINE 4% ADH..PATCH TP SCH (08:39)
[2025-04-21] MEDS: DOXYCYCLINE 100MG+NS 250ML 250 ML IV SCH (08:39)
--- NOTE | 2025-04-21 11:15 | PN ---
[facility] PROGRESS NOTE Date of Service: Apr 21, 2025 Time of Service: 11:12 SUBJECTIVE: 04/20 the patient has been seen and examined at bedside, case discussed with the RN, no acute events overnight, the time of my visit, the patient is awake, following commands, blood pressure 140/90, afebrile, saturating normal on room air. The patient is morbidly obese, he uses a CPAP at home, currently CPAP at bedside during my visit. WBC 14.0, hemoglobin 10.4, hematocrit 34.8, platelet count of 305. CMP shows sodium 141, potassium 3.5, BUN 70, creatinine 0.9, iron level of 25. X-ray of the knee showing moderate to severe three, power mental right knee osteoarthritis, predominantly in the lateral compartment, with small joint effusion. No acute fracture. Orthopedic physician consultation requested, we will follow input and recommendation. MRI of the right knee requested, however due to morbid obesity, might not be able to do it. Discussed with the mother is at the bedside, all questions answered, in agreement. 04/21 patient has been seen and examined at bedside, case discussed with the RN, no acute events overnight, the time my visit he is awake, following commands, admits mild dry nonproductive cough, spiked fever 102.6. Denied chest pain, shortness shortness for breath, no nausea, no vomiting, no abdominal discomfort. The patient has a colostomy bag, on examination, liquid stool noted. WBC slowly trending down at 12.7, hemoglobin stable 11.6. Magnesium 1.7. Added doxycycline 100 mg IV q.12 hours. Follow serology to include SARS antigen, influenza and rapid strep. We will give magnesium sulfate 2 g IV x1. We will order GI stool panel. Patient is scheduled for MRI to the right knee today, continue lidocaine patch, discussed with the orthopedic physician today, we will follow input and recommendation. REVIEW OF SYSTEMS CONSTITUTIONAL: Denies fevers, chills, or night sweats. No unintentional weight loss reported. NEUROLOGICAL: Denies headache, amaurosis fugax, motor weakness, sensory deficit, vertigo/spinning sensation, gait abnormalities, or tremors. ENT: No hearing loss, otalgia, otorrhea, rhinitis, rhinorrhea, hoarseness, or sore throat. CARDIOVASCULAR: Denies any exertional angina, dyspnea on exertion, orthopnea, paroxysmal nocturnal dyspnea, palpitations, life-threatening arrhythmias, claudication. PULMONARY: Denies any shortness of breath, cough, phlegm/sputum, hemoptysis, pleuritic chest pain. SLEEP: Denies morning headaches, daytime somnolence or napping. Denies difficulty falling asleep, staying asleep, waking from sleep. Denies knowledge of snoring. GASTROINTESTINAL: Denies any type of dysphagia to either liquids or solids. Denies nausea, vomiting, pyrosis, early satiety, abdominal pain, diarrhea, constipation, or changes in stool consistency or caliber. Denies coffee-ground emesis, hematemesis, hematochezia, or melanotic stools. GENITOURINARY: Denies frequency, urgency, nocturia, hematuria or incontinence (Storage/Irritative symptoms.) Low urinary stream, straining to void, urinary intermittency or hesitancy, splitting of the voiding stream, terminal dribbling. ENDOCRINOLOGIC: Denies polyuria, polydipsia, polyphagia or heat/cold intolerances. HEMATOLOGIC: Denies thrombophilia/previous clots, or coagulopathy/bleeding disorders. ONCOLOGIC: Denies personal history of malignancy. DERMATOLOGIC: Denies rashes or pruritus. PSYCHIATRIC: Denies any suicidal or homicidal ideation. Denies hallucinations. PHYSICAL EXAM GENERAL APPEARANCE: The patient is awake, alert, and oriented, in no acute cardiopulmonary distress. NEUROLOGICAL: Cranial nerves II-XII grossly intact. Motor is 5/5 in bilateral upper and lower extremities proximal to distal. No sensory deficits. HEENT: Face is symmetric. Pupils are equal and reactive. Extraocular movements are intact. NECK: Supple. No JVD. No thyromegaly. No submental, submandibular, pre- /postauricular, occipital or supraclavicular lymphadenopathy. CHEST: Normal chest expansion. No Telemetry. LUNGS: Absence of any rales, rhonchi or any wheezing. CARDIOVASCULAR: Regular. S1 and S2 normal. No appreciable rubs, murmurs or gallops. ABDOMEN: Soft, nontender, and nondistended. There is no rebound, voluntary guarding, or rigidity. : Deferred. No Doe. EXTREMITIES: Non-edematous and not cyanotic. No clubbing. Good capillary refill. SKIN: No skin breakdown. Vital Signs (last 8hr) Date Time Temp Pulse Resp B/P (MAP) Pulse Ox O2 Delivery O2 Flow Rate FiO2 04/21/25 08:00 99.9 150 22 111/66 92 Room Air 04/21/25 07:59 Room Air* 0 21 04/21/25 06:42 155 20 N/A Room Air 21 04/21/25 06:10 102.7 04/21/25 04:34 100.6 04/21/25 04:00 102.6 137 20 137/77 95 Room Air LABS: Laboratory: Test 04/21/25 06:53 04/21/25 04:45 04/21/25 04:20 04/20/25 21:35 Range/Units Lactic Acid Level 2.2 0.8-2.5 mmol/L Urine Color YELLOW YELLOW Urine Appearance TURBID CLEAR Urine pH 6.0 5.0-8.0 Urine Specific Brackney 1.033 H 1.001-1.031 Urine Protein 30 H NEGATIVE mg/dL Urine Glucose (UA) NEGATIVE NEGATIVE mg/dL Urine Ketones 40 H NEGATIVE mg/dL Urine Occult Blood NEGATIVE NEGATIVE Urine Nitrate NEGATIVE NEGATIVE Urine Bilirubin 1 H NEGATIVE mg/dL Urine Urobilinogen 6 H 0.2-1.0 mg/dL Urine Leukocyte Esterase NEGATIVE NEGATIVE Kelly/uL Urine RBC 0-1 0-1 /HPF Urine WBC None 0-1 /HPF Urine Squamous Epithelial Cells FEW 0-2 /HPF Urine Amorphous Crystals (Auto) RARE None Seen /LPF Urine Bacteria FEW None Seen /HPF Urine Yeast MOD None Seen /HPF Urine Opiates Screen NEGATIVE NEGATIVE Urine Barbiturates Screen NEGATIVE NEGATIVE Urine Phencyclidine Screen NEGATIVE NEGATIVE Urine Amphetamines Screen NEGATIVE NEGATIVE Urine Benzodiazepines Screen NEGATIVE NEGATIVE Urine Cocaine Screen NEGATIVE NEGATIVE Urine Marijuana (THC) Screen NEGATIVE NEGATIVE White Blood Count 12.7 H 4.8-10.8 K/uL Red Blood Count 5.06 4.50-6.20 MIL/uL Hemoglobin 11.6 L 14.0-18.0 g/dL Hematocrit 37.6 L 42-54 % Mean Corpuscular Volume 74.3 L 79-99 fL Mean Corpuscular Hemoglobin 22.9 L 27.0-33.0 pg Mean Corpuscular Hemoglobin Concent 30.9 L 32.0-36.0 g/dL Red Cell Distribution Width 18.6 H 11.0-15.5 % Platelet Count 302 130-400 K/uL Mean Platelet Volume 11.1 H 7.5-10.5 fL Nucleated Red Blood Cells 0.0 0.0-0.19 % Sodium Level 141 136-145 mmol/L Potassium Level 3.7 3.5-5.1 mmol/L Chloride Level 103 101-111 mmol/L Carbon Dioxide Level 21 21-32 mmol/L Blood Urea Nitrogen 17 7-18 mg/dL Creatinine 0.8 0.5-1.3 mg/dL Glomerular Filtration Rate Calc 118 >90 mL/min Random Glucose 113 H 70-105 mg/dL Total Calcium 8.9 8.5-10.1 mg/dL Magnesium Level 1.70 L 1.80-2.40 mg/dL Total Bilirubin 1.4 H 0.2-1.0 mg/dL Aspartate Amino Transf (AST/SGOT) 59 H 10-37 U/L Alanine Aminotransferase (ALT/SGPT) 76 12-78 U/L Alkaline Phosphatase 162 H 50-136 U/L Total Protein 7.7 6.0-8.3 g/dL Albumin 2.8 L 3.5-5.0 g/dL Stool Occult Blood NEGATIVE NEGATIVE Test 04/20/25 04:39 Range/Units Immature Granulocyte % (Auto) 0.6 0-1 % Neutrophils (%) (Auto) 81.1 H 40.0-77.0 % Lymphocytes (%) (Auto) 10.6 L 21.0-51.0 % Monocytes (%) (Auto) 6.3 3.0-13.0 % Eosinophils (%) (Auto) 1.0 0.0-8.0 % Basophils (%) (Auto) 0.4 0.0-5.0 % Neutrophils # (Auto) 11.4 H 1.8-7.7 K/uL Lymphocytes # (Auto) 1.5 1.0-4.8 K/uL Monocytes # (Auto) 0.9 0.1-1.0 K/uL Eosinophils # (Auto) 0.14 0.00-0.70 K/uL Basophils # (Auto) 0.06 0.00-0.20 K/uL Absolute Immature Granulocyte (auto 0.08 0-1 K/uL Platelet Morphology LARGE PLTS PRESENT Red Blood Cell Morphology ANISO 1+ Prothrombin Time 11.6 9.6-11.6 SEC Prothromb Time International Ratio 1.11 0.85-1.15 Activated Partial Thromboplast Time 25.3 L 26.3-35.5 SEC Phosphorus Level 4.4 2.5-4.9 mg/dL Iron Level 25 #L 65-175 mcg/dL Total Iron Binding Capacity 235 L 250-450 mcg/dL Percent Iron Saturation 10.6 L 30-44 % Current Medications Medications (Trade) Dose Ordered Sig/Checo Route PRN Reason Start Time Stop Time Status Last Admin Dose Admin Acetaminophen (TYLenol 325MG TAB) 650 mg Q6H PRN PO FEVER/pain 1-3 04/19/25 22:00 05/19/25 21:59 04/21/25 02:20 650 MG Ceftriaxone Sodium (ROCEphine 1G INJ) 1 gm Q24H IVPB 04/20/25 10:00 04/30/25 09:59 04/20/25 10:42 1 GM Doxycycline Hyclate 250 ml @ 125 mls/hr Q12H IV 04/21/25 08:30 05/01/25 08:29 04/21/25 08:39 125 MLS/HR Enoxaparin Sodium (Lovenox) 40 mg DAILY SQ 04/20/25 09:00 05/20/25 08:59 04/21/25 08:40 40 MG Famotidine (Pepcid 20mg Tab) 20 mg DAILY PO 04/20/25 09:00 05/20/25 08:59 04/20/25 09:15 20 MG Hydralazine HCl (APRESOLine 20MG INJ) 5 mg Q6H PRN IV For:SBP above 160;DBP above 90 04/20/25 16:00 05/20/25 15:59 Hydralazine HCl (APRESOLine 20MG INJ) 10 mg Q6H PRN IV For:SBP above 160;DBP above 90 04/19/25 22:00 04/20/25 10:52 DC Ketorolac Tromethamine (toRADol) 15 mg Q6H PRN IV MODERATE PAIN (4-6) 04/20/25 11:00 04/25/25 10:59 04/20/25 22:08 15 MG Lactated Ringer's 1,000 ml @ 100 mls/hr Q10H IV 04/19/25 22:00 04/20/25 10:52 DC 04/20/25 09:24 100 MLS/HR Lactulose (Constulose 20gm/ 30ml Udcup) 20 gm BID PRN PO CONSTIPATION 04/19/25 22:00 05/19/25 21:59 Lidocaine (Lidocaine Patch 4%) 1 each DAILY TP 04/21/25 09:00 05/21/25 08:59 04/21/25 08:39 1 EACH Magnesium Sulfate 50 ml @ 0 mls/hr PROTOCOL IV 04/21/25 08:30 05/21/25 08:29 Morphine Sulfate (morPHINE 4MG SYG) 4 mg Q4H PRN IVP SEVERE PAIN (7-10) 04/19/25 22:00 04/20/25 10:52 DC Ondansetron HCl (zoFRAN 4MG INJ) 4 mg Q6H PRN IV NAUSEA/VOMITING 04/19/25 22:00 05/19/25 21:59 04/21/25 08:36 4 MG DIAGNOSTICS / RADIOLOGY: [ ] ASSESSMENT: Right knee osteoarthritis, POA Intractable knee pain, POA Obesity, POA PLAN: patient has been seen and examined at bedside, case discussed with the RN, no acute events overnight, the time my visit he is awake, following commands, admits mild dry nonproductive cough, spiked fever 102.6. Denied chest pain, shortness shortness for breath, no nausea, no vomiting, no abdominal discomfort. The patient has a colostomy bag, on examination, liquid stool noted. WBC slowly trending down at 12.7, hemoglobin stable 11.6. Magnesium 1.7. Added doxycycline 100 mg IV q.12 hours. Follow serology to include SARS antigen, influenza and rapid strep. We will give magnesium sulfate 2 g IV x1. We will order GI stool panel. Patient is scheduled for MRI to the right knee today, continue lidocaine patch, discussed with the orthopedic physician today, we will follow input and recommendation. NEURO: Minimize central acting medications as possible. Fall Precautions. Well lighted room through the day and minimize interruptions through the night to prevent acute delirium. PULMONARY: Supplemental 02 as needed BiPAP as necessary, for respiratory distress Titrate Fio2 to keep Spo2 > or = 90% DuoNebs and CPT as needed IS hourly while awake for pulmonary hygiene prn Out of bed to chair as tolerated Maintain aspiration precautions at all times CARDIOVASCULAR: Follow hemodynamics. Vital signs per facility protocol GI & NUTRITION: Continue nutritional support Aspirations precautions Prokinetic agents and laxatives as needed KIDNEYS & ELECTROLYTES: Strict monitoring of intake and output Daily weights Avoid nephrotoxic agents Monitor electrolytes and replace as needed Goal urine output of 30mL/hr or 0.5mL/kg/hr Medications to be dosed according to renal function. Avoid contrast if possible ENDOCRINE: Maintain blood glucose between 100-180 at all times. Insulin sliding scale for blood glucose management Hypoglycemia and hyperglycemia protocol in place INFECTIOUS DISEASE: Trend temperature, WBC and procalcitonin level Follow cultures, deescalate antibiotics as soon as possible. Panculture if new onset fever HEMATOLOGY & COAGULATION: Monitor H&H. Keep Hgb > 7 Transfuse 1 unit of PRBC for Hgb < 7 Transfuse 1 pack of platelets of platelets < 20, 000 Watch for any signs and symptoms of bleeding SKIN: Pressure ulcer prevention per facility protocol Specialty mattress as needed ORTHO/REHAB Continue PT/OT PRN: MEDICATIONS Tylenol 650 mg po every 4 hrs for fever zofran 4 mg IV every 6 hrs for n/v Hydralazine 5 mg IV every 4 hrs systolic pressure > 160 bowel regiment: lactulose 20 gm PO BID PRN constipation Supportive measures: Continue GI and DVT prophylaxis Disposition: Pending improvement in clinical condition All questions answered time spent: > 35 min TITA PETERSON MD Apr 21, 2025 11:15
[2025-04-21] MEDS: PoTASSium chloRIDE 20MEQ ER 20 MEQ ERTAB PO ONE (12:06)
[2025-04-21] MEDS: MAGNESIUM 2GM PREMIX 50ML 50 ML IV SCH (12:06)
[2025-04-21] MEDS: LACTATED RINGERS 1000ML 1,000 ML IV SCH (12:42)
[2025-04-21] MEDS ORDERED: GADOTERATE MEGLUMINE 10 MMOL/20 ML VIAL IV ONE (13:44)
[2025-04-21 15:05] LABS: COVID19 (SARS ANTIGEN RAPID) PRESUMPTIVE NEGATIVE (NEGATIVE)
[2025-04-21 15:11] LABS: INFLUENZA TYPE A Negative For Type A (NEGATIVE); INFLUENZA TYPE B Negative For Type B (NEGATIVE)
--- NOTE | 2025-04-21 16:00 | NUR ---
THROWING UP PT THROW UP THREE TIMES DURING THE DAY, GIVE ZOFRAN AND DOCTOR AWARE OF IT.
--- NOTE | 2025-04-21 22:08 | CONS ---
CONSULTING PHYSICIAN: Dr. Usman Hernandez. CONSULTING SERVICE: Hospitalist Service. REASON FOR CONSULT: Right knee pain. HISTORY OF PRESENT ILLNESS: This is a 35-year-old gentleman who is morbidly obese, has been admitted for severe right knee pain. No history of any trauma or falls. He has been having symptoms of right knee pain for many months, but the pain has gotten worse within the last 1-2 weeks. Again, no history of any fevers or chills. Pain was so bad that the patient could not walk and has been admitted for the same. No history of any injections or therapy to the knee. Again, no history of any fevers or chills. No history of any surgeries to the right knee. PAST MEDICAL HISTORY: Positive for morbid obesity. PREVIOUS SURGERIES: Colostomy. ALLERGIES: None. SOCIAL HISTORY: Does not smoke. Does not drink alcohol or use illegal drugs. MEDICATIONS: Reviewed. FAMILY HISTORY: Nothing significant. REVIEW OF SYSTEMS: A 12-system review of systems was negative. PHYSICAL EXAMINATION: GENERAL: The patient is again morbidly obese, awake, alert, and oriented x 3. VITAL SIGNS: Heart rate 79, blood pressure 131/73, oxygen saturation 98% on room air, and respiratory rate 15. NECK: No engorged vein. CHEST: Symmetric motion is seen. ABDOMEN: Soft, nontender. EXTREMITIES: Examination of right knee and right lower extremity shows mild swelling present to the right knee. Tenderness present lateral joint line. Knee joint range of motion is associated with crepitus. Motor and sensory are grossly intact. Toes are warm and pink. Good capillary refill is present. Dorsalis pedis and posterior tibial 1+. DIAGNOSTIC STUDIES: X-rays of the right knee show changes of arthritis present, especially in the lateral compartment. Also, the patient had an MRI done, which was reviewed by me. I did not see any obvious fractures or dislocation seen. I did not see any obvious signs of any infection, but we will await for the final report from the radiologist. Laboratory investigations were also reviewed. ASSESSMENT AND PLAN: A 35-year-old gentleman with right knee osteoarthritis, possibly a flare-up of arthritis. I had a detailed conversation with the patient and family regarding his condition and told them the treatment options available and the risks and benefits. All questions and concerns were answered in detail. The patient has got bad arthritis and would finally benefit from a knee replacement, but considering his morbid obesity, it is not to be indicated right now, so I would just recommend heating pads to the right knee, anti-inflammatory medications, then he can use a walker to walk, and once the weight reduction has been done, then patient may be planned for any operative procedure. Ortho will sign off. Please call us for any questions or concerns. TID: [id number] RECEIPT: [id number]
[2025-04-22] VITALS (42 sets, daily range): BP systolic 110–153; BP diastolic 65–97; PULSE 68–123; RESP 16–46; TEMP 97.9–98.3; O2SAT 90–96
--- NOTE | 2025-04-22 01:20 | HMCIMG ---
MR RIGHT LOWER EXTREMITY WITH AND WITHOUT IV CONTRAST, KNEE Clinical Details: Knee pain and restricted movement. Technique: Multisequence, multiplanar magnetic resonance images of the right knee were obtained with and without intravenous contrast. Series acquired include axial T2, axial T1, axial STIR, coronal PD and PD FS, coronal STIR, sagittal PD and T2, and post-contrast sagittal, coronal, and axial T1 FS sequences. Findings: Joint: Tricompartmental osteoarthritis with diffuse cartilage thinning and osteophytosis. Menisci: Medial meniscus shows extrusion measuring 0.7 cm with a degenerative complex tear involving the body and posterior horn. Lateral meniscus demonstrates extensive degeneration and complex tear involving the body and posterior horn. Articular Cartilage: There is a full-thickness chondral defect with subchondral marrow oedema involving the middle and posterior weight-bearing surface of the lateral femoral condyle. Cartilage thinning is noted across the patellofemoral and medial compartments. Subchondral Bone: Reactive oedema is noted corresponding to the chondral defects. Ligaments: The anterior cruciate ligament is intact. The posterior cruciate ligament is intact. The lateral collateral ligament is intact. The medial collateral ligament is intact. Effusion: A small joint effusion is present with synovial enhancement post-contrast, compatible with synovitis. Soft Tissues: No mass or cystic lesion is identified. Tendons: The quadriceps tendon is intact. The patellar tendon is intact. The lateral gastrocnemius tendon is intact. The medial gastrocnemius tendon is intact. The iliotibial band is intact. The popliteus tendon is intact. Bones: No acute fracture or aggressive osseous lesion is identified. Bone marrow signal intensity is within normal limits. Muscles: The visualized muscles demonstrate normal girth and signal intensity. Retinacula: The medial and lateral patellar retinacula are intact. Impression: * Tricompartmental osteoarthritis (Kellgren???Jose grade III) with osteophytosis and diffuse cartilage loss. * Medial and lateral menisci with complex degenerative tears involving posterior horns and bodies, meniscal tear severity grade III (modified Valentin classification). 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 * Small reactive joint effusion with mild synovitis. /[place]
[2025-04-22 04:47] LABS: NUCLEATED RED BLOOD CELLS 0.0 % (0.0-0.19); PLATELET COUNT (AUTO) 276.0 K/uL (130-400); RED BLOOD CELL COUNT(AUTO) 4.74 MIL/uL (4.50-6.20); RED CELL DISTRIBUTION WIDTH 18.6 % (11.0-15.5); WHITE BLOOD COUNT (AUTO) 23.8 K/uL (4.8-10.8)
[2025-04-22 04:59] LABS: ASPARTATE AMINOTRANSFERASE 48.0 U/L (10-37); CREATININE 2.1 mg/dL (0.5-1.3); GLOMERULAR FILTR. RATE CALC 41.0 mL/min (>90); GLUCOSE,RANDOM 127.0 mg/dL (70-105); SODIUM SERUM 142.0 mmol/L (136-145); TOTAL PROTEIN, SERUM 7.3 g/dL (6.0-8.3); UREA NITROGEN, BLOOD 33.0 mg/dL (7-18)
--- NOTE | 2025-04-22 11:05 | PN ---
[facility] PROGRESS NOTE Date of Service: Apr 22, 2025 Time of Service: 11:00 SUBJECTIVE: 04/20 the patient has been seen and examined at bedside, case discussed with the RN, no acute events overnight, the time of my visit, the patient is awake, following commands, blood pressure 140/90, afebrile, saturating normal on room air. The patient is morbidly obese, he uses a CPAP at home, currently CPAP at bedside during my visit. WBC 14.0, hemoglobin 10.4, hematocrit 34.8, platelet count of 305. CMP shows sodium 141, potassium 3.5, BUN 70, creatinine 0.9, iron level of 25. X-ray of the knee showing moderate to severe three, power mental right knee osteoarthritis, predominantly in the lateral compartment, with small joint effusion. No acute fracture. Orthopedic physician consultation requested, we will follow input and recommendation. MRI of the right knee requested, however due to morbid obesity, might not be able to do it. Discussed with the mother is at the bedside, all questions answered, in agreement. 04/21 patient has been seen and examined at bedside, case discussed with the RN, no acute events overnight, the time my visit he is awake, following commands, admits mild dry nonproductive cough, spiked fever 102.6. Denied chest pain, shortness shortness for breath, no nausea, no vomiting, no abdominal discomfort. The patient has a colostomy bag, on examination, liquid stool noted. WBC slowly trending down at 12.7, hemoglobin stable 11.6. Magnesium 1.7. Added doxycycline 100 mg IV q.12 hours. Follow serology to include SARS antigen, influenza and rapid strep. We will give magnesium sulfate 2 g IV x1. We will order GI stool panel. Patient is scheduled for MRI to the right knee today, continue lidocaine patch, discussed with the orthopedic physician today, we will follow input and recommendation. 04/22 patient is seen and examined at bedside, discussed with the RN. Patient currently feels nauseated. He admits mild discomfort to the right lower quadrant. BP 135/77, mildly tachycardic at 108, saturating normal on room air. Maximum temperature last 24 hours 102.7. CBC shows a hemoglobin of 11.6, hematocrit 35.7, platelet count of 276, with a platelet count of 23.8. Creatinine 2.1. MRI of the right knee shows tricompartmental osteoarthritis with osteophytosis and diffuse cartilage loss, medial and lateral meniscal with complex degenerative tear involving posterior horns and bodies, meniscal tear severity grade 3, full-thickness chondral defect of the lateral femoral condyle, with a underlying subchondral edema, small reactive joint effusion with mild synovitis. We will upgraded the patient to the PCU, LR at 50 mL/hours, follow repeat CBC, CMP and magnesium level. Continue Rocephin and doxycycline IV. We will order a CT of the abdomen and pelvis without contrast to rule out intra- abdominal acute pathology. Orthopedic input noted and appreciated, patient with bad arthritis, we will finally benefit from knee replacement, however considering his morbid obesity, it is not indicated right now. Recommended co nservative approach. Mother at bedside, all questions answered, updated, in agreement with plan of care. REVIEW OF SYSTEMS CONSTITUTIONAL: Denies fevers, chills, or night sweats. No unintentional weight loss reported. NEUROLOGICAL: Denies headache, amaurosis fugax, motor weakness, sensory deficit, vertigo/spinning sensation, gait abnormalities, or tremors. ENT: No hearing loss, otalgia, otorrhea, rhinitis, rhinorrhea, hoarseness, or sore throat. CARDIOVASCULAR: Denies any exertional angina, dyspnea on exertion, orthopnea, paroxysmal nocturnal dyspnea, palpitations, life-threatening arrhythmias, claudication. PULMONARY: Denies any shortness of breath, cough, phlegm/sputum, hemoptysis, pleuritic chest pain. SLEEP: Denies morning headaches, daytime somnolence or napping. Denies difficulty falling asleep, staying asleep, waking from sleep. Denies knowledge of snoring. GASTROINTESTINAL: Denies any type of dysphagia to either liquids or solids. Denies nausea, vomiting, pyrosis, early satiety, abdominal pain, diarrhea, constipation, or changes in stool consistency or caliber. Denies coffee-ground emesis, hematemesis, hematochezia, or melanotic stools. GENITOURINARY: Denies frequency, urgency, nocturia, hematuria or incontinence (Storage/Irritative symptoms.) Low urinary stream, straining to void, urinary intermittency or hesitancy, splitting of the voiding stream, terminal dribbling. ENDOCRINOLOGIC: Denies polyuria, polydipsia, polyphagia or heat/cold intolerances. HEMATOLOGIC: Denies thrombophilia/previous clots, or coagulopathy/bleeding disorders. ONCOLOGIC: Denies personal history of malignancy. DERMATOLOGIC: Denies rashes or pruritus. PSYCHIATRIC: Denies any suicidal or homicidal ideation. Denies hallucinations. PHYSICAL EXAM GENERAL APPEARANCE: The patient is awake, alert, and oriented, in no acute cardiopulmonary distress. NEUROLOGICAL: Cranial nerves II-XII grossly intact. Motor is 5/5 in bilateral upper and lower extremities proximal to distal. No sensory deficits. HEENT: Face is symmetric. Pupils are equal and reactive. Extraocular movements are intact. NECK: Supple. No JVD. No thyromegaly. No submental, submandibular, pre- /postauricular, occipital or supraclavicular lymphadenopathy. CHEST: Normal chest expansion. No Telemetry. LUNGS: Absence of any rales, rhonchi or any wheezing. CARDIOVASCULAR: Regular. S1 and S2 normal. No appreciable rubs, murmurs or gallops. ABDOMEN: Abdomen is soft, bowel sounds are present, minimal discomfort to the right lower quadrant, colostomy bag with liquid stool. : Deferred. No Doe. EXTREMITIES: Mild swelling to the right knee area, lidocaine patch in place. SKIN: No skin breakdown. Vital Signs (last 8hr) Date Time Temp Pulse Resp B/P (MAP) Pulse Ox O2 Delivery O2 Flow Rate FiO2 04/22/25 08:21 90 Nasal Cannula* 1 04/22/25 08:10 108 20 N/Cannula Low lpm 1.0 04/22/25 08:00 98.2 113 19 125/77 90 Nasal Cannula 1.0 04/22/25 03:26 98.2 120 16 111/65 94 Nasal Cannula 2.0 LABS: Laboratory: Test 04/22/25 04:45 04/22/25 04:35 04/21/25 14:15 04/21/25 06:53 Range/Units Group A Streptococcus Rapid negative NEGATIVE White Blood Count 23.8 H 4.8-10.8 K/uL Red Blood Count 4.74 4.50-6.20 MIL/uL Hemoglobin 11.0 L 14.0-18.0 g/dL Hematocrit 35.6 L 42-54 % Mean Corpuscular Volume 75.1 L 79-99 fL Mean Corpuscular Hemoglobin 23.2 L 27.0-33.0 pg Mean Corpuscular Hemoglobin Concent 30.9 L 32.0-36.0 g/dL Red Cell Distribution Width 18.6 H 11.0-15.5 % Platelet Count 276 130-400 K/uL Mean Platelet Volume 11.3 H 7.5-10.5 fL Nucleated Red Blood Cells 0.0 0.0-0.19 % Sodium Level 142 136-145 mmol/L Potassium Level 4.1 3.5-5.1 mmol/L Chloride Level 105 101-111 mmol/L Carbon Dioxide Level 25 21-32 mmol/L Blood Urea Nitrogen 33 H 7-18 mg/dL Creatinine 2.1 H 0.5-1.3 mg/dL Glomerular Filtration Rate Calc 41 >90 mL/min Random Glucose 127 H 70-105 mg/dL Total Calcium 8.8 8.5-10.1 mg/dL Magnesium Level 2.20 1.80-2.40 mg/dL Total Bilirubin 2.9 H 0.2-1.0 mg/dL Aspartate Amino Transf (AST/SGOT) 48 H 10-37 U/L Alanine Aminotransferase (ALT/SGPT) 71 12-78 U/L Alkaline Phosphatase 173 H 50-136 U/L Total Protein 7.3 6.0-8.3 g/dL Albumin 2.5 L 3.5-5.0 g/dL Influenza Type A Antigen Negative For Type A NEGATIVE Influenza Type B Antigen Negative For Type B NEGATIVE SARS-CoV-2 Antigen (Rapid) PRESUMPTIVE NEGATIVE NEGATIVE Lactic Acid Level 2.2 0.8-2.5 mmol/L Test 04/21/25 04:45 04/20/25 21:35 Range/Units Urine Color YELLOW YELLOW Urine Appearance TURBID CLEAR Urine pH 6.0 5.0-8.0 Urine Specific [place] 1.033 H 1.001-1.031 Urine Protein 30 H NEGATIVE mg/dL Urine Glucose (UA) NEGATIVE NEGATIVE mg/dL Urine Ketones 40 H NEGATIVE mg/dL Urine Occult Blood NEGATIVE NEGATIVE Urine Nitrate NEGATIVE NEGATIVE Urine Bilirubin 1 H NEGATIVE mg/dL Urine Urobilinogen 6 H 0.2-1.0 mg/dL Urine Leukocyte Esterase NEGATIVE NEGATIVE Kelly/uL Urine RBC 0-1 0-1 /HPF Urine WBC None 0-1 /HPF Urine Squamous Epithelial Cells FEW 0-2 /HPF Urine Amorphous Crystals (Auto) RARE None Seen /LPF Urine Bacteria FEW None Seen /HPF Urine Yeast MOD None Seen /HPF Urine Opiates Screen NEGATIVE NEGATIVE Urine Barbiturates Screen NEGATIVE NEGATIVE Urine Phencyclidine Screen NEGATIVE NEGATIVE Urine Amphetamines Screen NEGATIVE NEGATIVE Urine Benzodiazepines Screen NEGATIVE NEGATIVE Urine Cocaine Screen NEGATIVE NEGATIVE Urine Marijuana (THC) Screen NEGATIVE NEGATIVE Stool Occult Blood NEGATIVE NEGATIVE Current Medications Medications (Trade) Dose Ordered Sig/Checo Route PRN Reason Start Time Stop Time Status Last Admin Dose Admin Acetaminophen (TYLenol 325MG TAB) 650 mg Q6H PRN PO FEVER/pain 1-3 04/19/25 22:00 05/19/25 21:59 04/21/25 02:20 650 MG Ceftriaxone Sodium (ROCEphine 1G INJ) 1 gm Q24H IVPB 04/20/25 10:00 04/30/25 09:59 04/22/25 10:53 1 GM Doxycycline Hyclate 250 ml @ 125 mls/hr Q12H IV 04/21/25 08:30 05/01/25 08:29 04/22/25 08:14 125 MLS/HR Enoxaparin Sodium (Lovenox) 40 mg DAILY SQ 04/20/25 09:00 05/20/25 08:59 04/22/25 08:14 40 MG Famotidine (Pepcid 20mg Tab) 20 mg DAILY PO 04/20/25 09:00 05/20/25 08:59 04/22/25 08:14 20 MG Hydralazine HCl (APRESOLine 20MG INJ) 5 mg Q6H PRN IV For:SBP above 160;DBP above 90 04/20/25 16:00 05/20/25 15:59 Hydralazine HCl (APRESOLine 20MG INJ) 10 mg Q6H PRN IV For:SBP above 160;DBP above 90 04/19/25 22:00 04/20/25 10:52 DC Ketorolac Tromethamine (toRADol) 15 mg Q6H PRN IV MODERATE PAIN (4-6) 04/20/25 11:00 04/25/25 10:59 04/20/25 22:08 15 MG Lactated Ringer's 1,000 ml @ 75 mls/hr [id number] IV 04/21/25 12:30 05/21/25 12:29 04/21/25 12:42 75 MLS/HR Lactated Ringer's 1,000 ml @ 100 mls/hr Q10H IV 04/19/25 22:00 04/20/25 10:52 DC 04/21/25 12:40 100 MLS/HR Lactulose (Constulose 20gm/ 30ml Udcup) 20 gm BID PRN PO CONSTIPATION 04/19/25 22:00 05/19/25 21:59 Lidocaine (Lidocaine Patch 4%) 1 each DAILY TP 04/21/25 09:00 05/21/25 08:59 04/22/25 08:14 1 EACH Magnesium Sulfate 50 ml @ 0 mls/hr PROTOCOL IV 04/21/25 08:30 05/21/25 08:29 04/21/25 12:06 50 MLS/HR Morphine Sulfate (morPHINE 4MG SYG) 4 mg Q4H PRN IVP SEVERE PAIN (7-10) 04/19/25 22:00 04/20/25 10:52 DC Ondansetron HCl (zoFRAN 4MG INJ) 4 mg Q6H PRN IV NAUSEA/VOMITING 04/19/25 22:00 05/19/25 21:59 04/22/25 04:36 4 MG DIAGNOSTICS / RADIOLOGY: [ ] ASSESSMENT: Right knee osteoarthritis, POA Intractable knee pain, POA Obesity, POA PLAN: patient is seen and examined at bedside, discussed with the RN. Patient currently feels nauseated. He admits mild discomfort to the right lower quadrant. BP 135/77, mildly tachycardic at 108, saturating normal on room air. Maximum temperature last 24 hours 102.7. CBC shows a hemoglobin of 11.6, hematocrit 35.7, platelet count of 276, with a platelet count of 23.8. Creatinine 2.1. MRI of the right knee shows tricompartmental osteoarthritis with osteophytosis and diffuse cartilage loss, medial and lateral meniscal with complex degenerative tear involving posterior horns and bodies, meniscal tear severity grade 3, full-thickness chondral defect of the lateral femoral condyle, with a underlying subchondral edema, small reactive joint effusion with mild synovitis. We will upgraded the patient to the PCU, LR at 50 mL/hours, follow repeat CBC, CMP and magnesium level. Continue Rocephin and doxycycline IV. We will order a CT of the abdomen and pelvis without contrast to rule out intra- abdominal acute pathology. Orthopedic input noted and appreciated, patient wit h bad arthritis, we will finally benefit from knee replacement, however considering his morbid obesity, it is not indicated right now. Recommended conservative approach. Mother at bedside, all questions answered, updated, in agreement with plan of care. NEURO: Minimize central acting medications as possible. Fall Precautions. Well lighted room through the day and minimize interruptions through the night to prevent acute delirium. PULMONARY: Supplemental 02 as needed BiPAP as necessary, for respiratory distress Titrate Fio2 to keep Spo2 > or = 90% DuoNebs and CPT as needed IS hourly while awake for pulmonary hygiene prn Out of bed to chair as tolerated Maintain aspiration precautions at all times CARDIOVASCULAR: Follow hemodynamics. Vital signs per facility protocol GI & NUTRITION: Continue nutritional support Aspirations precautions Prokinetic agents and laxatives as needed KIDNEYS & ELECTROLYTES: Strict monitoring of intake and output Daily weights Avoid nephrotoxic agents Monitor electrolytes and replace as needed Goal urine output of 30mL/hr or 0.5mL/kg/hr Medications to be dosed according to renal function. Avoid contrast if possible ENDOCRINE: Maintain blood glucose between 100-180 at all times. Insulin sliding scale for blood glucose management Hypoglycemia and hyperglycemia protocol in place INFECTIOUS DISEASE: Trend temperature, WBC and procalcitonin level Follow cultures, deescalate antibiotics as soon as possible. Panculture if new onset fever HEMATOLOGY & COAGULATION: Monitor H&H. Keep Hgb > 7 Transfuse 1 unit of PRBC for Hgb < 7 Transfuse 1 pack of platelets of platelets < 20, 000 Watch for any signs and symptoms of bleeding SKIN: Pressure ulcer prevention per facility protocol Specialty mattress as needed ORTHO/REHAB Continue PT/OT PRN: MEDICATIONS Tylenol 650 mg po every 4 hrs for fever zofran 4 mg IV every 6 hrs for n/v Hydralazine 5 mg IV every 4 hrs systolic pressure > 160 bowel regiment: lactulose 20 gm PO BID PRN constipation Supportive measures: Continue GI and DVT prophylaxis Disposition: Pending improvement in clinical condition All questions answered time spent: > 35 min TITA PETERSON MD Apr 22, 2025 11:05
--- NOTE | 2025-04-22 11:10 | NUR ---
REPORT WAS GIVEN TO DAVON IN 2ND FLOOR.
--- NOTE | 2025-04-22 11:27 | EKG ---
[facility] Test Date: 2025-04-22 Test Time: 11:23:39 Pat Name: MARTY BARRON Department: [facility] Room: 201 Gender: M Composite Laminator: AF : 1990 Requested By: TITA PETERSON Order Number: [id number] Reading MD: Amanda Hanley Measurements Intervals [place] Rate: 116 P: 28 MT: 138 QRS: 23 QRSD: 94 T: 15 QT: 326 QTc: 453 Interpretive Statements Sinus tachycardia Compared to ECG 04/19/2025 23:28:20 Sinus rhythm no longer present Electronically Signed On 04-22-2025 12:41:30 CDT by Amanda Hanley Please click the below link to view image of tracing.
[2025-04-22 11:45] LABS: NUCLEATED RED BLOOD CELLS 0.0 % (0.0-0.19); PLATELET COUNT (AUTO) 293.0 K/uL (130-400); RED BLOOD CELL COUNT(AUTO) 4.75 MIL/uL (4.50-6.20); RED CELL DISTRIBUTION WIDTH 18.4 % (11.0-15.5); WHITE BLOOD COUNT (AUTO) 26.5 K/uL (4.8-10.8)
--- NOTE | 2025-04-22 11:52 | NUR ---
pt arrived to unit at this time.on nasal cannula 2liters, pt denies any pain at the moment, no nausea nor vomiting noted. vitals as charted.
[2025-04-22 11:56] LABS: ASPARTATE AMINOTRANSFERASE 50.0 U/L (10-37); CREATININE 1.7 mg/dL (0.5-1.3); GLOMERULAR FILTR. RATE CALC 53.0 mL/min (>90); GLUCOSE,RANDOM 124.0 mg/dL (70-105); SODIUM SERUM 143.0 mmol/L (136-145); TOTAL PROTEIN, SERUM 7.4 g/dL (6.0-8.3); UREA NITROGEN, BLOOD 33.0 mg/dL (7-18)
[2025-04-22] MEDS: PROMETHAZINE HCL 25 MG/ML 1ML AMPULE IM PRN (12:25)
--- NOTE | 2025-04-22 12:34 | HMCIMG ---
EXAM: CT Abdomen and Pelvis Without IV contrast CLINICAL HISTORY: RLQ PAIN TECHNIQUE: Axial computed tomography images of the abdomen and pelvis without intravenous contrast. CONTRAST: No IV contrast. COMPARISON: None provided. FINDINGS: LUNG BASES: Multiple randomly distributed nodules in both lungs, the largest measuring 2.1 x 1.6 cm in the medial basal segment of the right lower lobe. Patchy areas of consolidation in bilateral lower lobes. Ill-defined lytic-sclerotic lesion in the left anterior aspect of the 6th rib. Dependent airway disease along bilateral lower lobes, presumed to represent basal atelectasis. LIVER: Hepatic steatosis. GALLBLADDER AND BILE DUCTS: Post cholecystectomy status. No biliary ductal dilatation is evident. PANCREAS: Unremarkable. SPLEEN: Unremarkable. ADRENAL GLANDS: Bilateral adrenal glands appear diffusely bulky, predominantly on the left side, likely adrenal gland hyperplasia. KIDNEYS, URETERS, AND BLADDER: The kidneys appear within normal limits. There is no hydronephrosis or hydroureter. No urinary calculi are seen. STOMACH AND BOWEL: There is a defect of size 5.6 cm in the left anterior abdominal wall with herniation of the descending colon and small bowel loop. There is dilatation of the herniated bowel loop up to 4.1 cm, consistent with obstruction. Thickened and irregular appearing loop of small bowel in the mid pelvis. Ischemia is not excluded. A contrast-enhanced CT is recommended. PERITONEUM: Trace-free fluid. No free air. LYMPH NODES: No lymphadenopathy is evident. REPRODUCTIVE: Unremarkable as visualized. VASCULATURE: No evidence of abdominal aortic aneurysm. BONES: Lytic lesion in the L4 vertebral body. IMPRESSION: 1. Thickened and irregular appearing loop of small bowel in the mid pelvis. Ischemia is not excluded. A contrast-enhanced CT is recommended. 2. Left anterior abdominal wall hernia with herniation of descending colon and small bowel, with bowel obstruction up to 4.1 cm. 3. Lytic lesion in L4 vertebral body. Left anterior 6th rib lytic-sclerotic lesion. 4. Multiple pulmonary nodules, the largest 2.1 cm in the right lower lobe -suspicious for metastasis. 5. Bilateral adrenal gland hyperplasia, more prominent on the left. Suggest PET-CT for further evaluation. /[place]
--- NOTE | 2025-04-22 12:48 | NUR ---
received call from dr. lopez as per md radiologist informed him of ct scan results of possible bowel ischemia, md aware of all new labs and episode of large emsis green in color, as per md, pt to be transferred to ic[facility] , consult nephrology , infectious disease, general surgery, stop previous abts and start on cefepime and flagyl iv as ordered.npo
--- NOTE | 2025-04-22 13:19 | CONS ---
GENERAL SURGERY CONSULTATION NOTE DATE OF CONSULTATION: Apr 22, 2025 TIME OF CONSULTATION: 13:17 CONSULTING SERVICE: Jud Arguelles MD REQUESTING PHYSICAIN: [ ] REASON FOR CONSULTATION: [ ] HISTORY OF PRESENT ILLNESS: [ ] PAST MEDICAL HISTORY: [ ] PAST SURGICAL HISTORY: [ ] FAMILY HISTORY: [ ] SOCIAL HISTORY: [ ] Current Medications Medications (Trade) Dose Ordered Sig/Checo Route Start Time Stop Time Status Last Admin Dose Admin Cefepime HCl (MAXipime 2 gm vial) 2 gm Q8H IVPB 04/22/25 13:00 05/02/25 12:59 04/22/25 12:54 2 GM Ceftriaxone Sodium (ROCEphine 1G INJ) 1 gm Q24H IVPB 04/20/25 10:00 04/22/25 12:41 DC 04/22/25 10:53 1 GM Doxycycline Hyclate 250 ml @ 125 mls/hr Q12H IV 04/21/25 08:30 04/22/25 12:41 DC 04/22/25 08:14 125 MLS/HR Enoxaparin Sodium (Lovenox) 40 mg DAILY SQ 04/20/25 09:00 05/20/25 08:59 04/22/25 08:14 40 MG Famotidine (Pepcid 20mg Tab) 20 mg DAILY PO 04/20/25 09:00 05/20/25 08:59 04/22/25 08:14 20 MG Lactated Ringer's 1,000 ml @ 50 mls/hr Q20H IV 04/21/25 12:30 05/21/25 12:29 04/22/25 11:58 50 MLS/HR Lactated Ringer's 1,000 ml @ 100 mls/hr Q10H IV 04/19/25 22:00 04/20/25 10:52 DC 04/21/25 12:40 100 MLS/HR Lidocaine (Lidocaine Patch 4%) 1 each DAILY TP 04/21/25 09:00 05/21/25 08:59 04/22/25 08:14 1 EACH Magnesium Sulfate 50 ml @ 0 mls/hr PROTOCOL IV 04/21/25 08:30 05/21/25 08:29 04/21/25 12:06 50 MLS/HR Metronidazole/ Sodium Chloride 100 ml @ 100 mls/hr Q8H6 IVPB 04/22/25 14:00 05/02/25 13:59 Allergies: Coded Allergies: No Known Allergies (Unverified Allergy, Unknown, 09/21/22) REVIEW OF SYSTEMS: ATHLETIC DIRECTOR: [Denies headaches or blurring of vision.] RESP: [No cough, chest pain or SOB.] CVS: [No palpitaions.] GI: [abdominal pain with nausea and vomiting, no diarrhea or constipation.] RAFFY: [No dysuria or hematuria.] Musculoskeletal: [No swelling or joint pain.] BACK: [No pain or swelling.] All other systems are reviewed and essentially negative pertinent positives in HPI. PHYSICAL EXAMINATION: GENERAL: [Patient is lying comfortably in bed, not in any obvious distress.] HEAD: [Normal with no signs of head trauma.] EYES: [Not pale not jaundiced afebrile to touch.] ENT: [ Normal.] NECK: [Supple,no tenderness,no lymphadenopathy,no masses,no thyromegaly ,no bruits, no JVD.] LUNGS: [Clear breath sounds bilaterally. No wheezes, rales, or rhonchi.] HEART: [Regular rate and rhythm. Normal S1 and S2, without murmurs, rub or gallop.] VASC: [No edema. Peripheral pulses normal and equal in all extremities.] ABD: [Bowel sounds present,soft, RUQ tender, no masses, no organomegaly.] : [Normal, no suprapubic tenderness.] LYMPH: [No lymphadenopathy noted.] EXT: [ Warm soft, non tender.] SKIN: [ No rashes or lesions.] NEURO: [ Awake Alert and oriented x3.] Vital Signs (last 8hr) Date Time Temp Pulse Resp B/P (MAP) Pulse Ox O2 Delivery O2 Flow Rate FiO2 04/22/25 11:56 97.9 102 18 118/85 93 Nasal Cannula 3.0 04/22/25 11:53 90 Nasal Cannula* 2 28 04/22/25 08:21 90 Nasal Cannula* 1 24 04/22/25 08:10 108 20 N/Cannula Low lpm 1.0 04/22/25 08:00 98.2 113 19 125/77 90 Nasal Cannula 1.0 LABORATORY: [ ] Hematology Labs: Test 04/22/25 11:09 Range/Units White Blood Count 26.5 H 4.8-10.8 K/uL Red Blood Count 4.75 4.50-6.20 MIL/uL Hemoglobin 11.1 L 14.0-18.0 g/dL Hematocrit 36.1 L 42-54 % Mean Corpuscular Volume 76.0 L 79-99 fL Mean Corpuscular Hemoglobin 23.4 L 27.0-33.0 pg Mean Corpuscular Hemoglobin Concent 30.7 L 32.0-36.0 g/dL Red Cell Distribution Width 18.4 H 11.0-15.5 % Platelet Count 293 130-400 K/uL Mean Platelet Volume 12.0 H 7.5-10.5 fL Nucleated Red Blood Cells 0.0 0.0-0.19 % Chemistry Labs: Test 04/22/25 11:09 04/21/25 06:53 Range/Units Sodium Level 143 136-145 mmol/L Potassium Level 4.0 3.5-5.1 mmol/L Chloride Level 105 101-111 mmol/L Carbon Dioxide Level 26 21-32 mmol/L Blood Urea Nitrogen 33 H 7-18 mg/dL Creatinine 1.7 H 0.5-1.3 mg/dL Glomerular Filtration Rate Calc 53 >90 mL/min Random Glucose 124 H 70-105 mg/dL Total Calcium 8.9 8.5-10.1 mg/dL Magnesium Level 2.20 1.80-2.40 mg/dL Total Bilirubin 2.6 H 0.2-1.0 mg/dL Aspartate Amino Transf (AST/SGOT) 50 H 10-37 U/L Alanine Aminotransferase (ALT/SGPT) 60 12-78 U/L Alkaline Phosphatase 201 H 50-136 U/L Total Protein 7.4 6.0-8.3 g/dL Albumin 2.4 L 3.5-5.0 g/dL Lactic Acid Level 2.2 0.8-2.5 mmol/L DIAGNOSTICS / RADIOLOGY: [Copy/Paste Echos/Imaging Report here] ASSESSMENT: [] PLAN: AGGRESSIVE RESUSCITATION FLUID BOLUS NG TUBE LACTIC ACID LEGER CATHETER REPEAT CT ABDOMEN AND PELVIS WITH ORAL AND IV CONTRAST START CT CHEST ALSO JUD ARGUELLES MD Apr 22, 2025 13:19
--- NOTE | 2025-04-22 13:20 | NUR ---
dr. vance at bedside aware of pt status, labs, and ct scan results , new orders placed as ordered by md. report and care given to isis rn , all questions answered. pt aaxo3. no distress noted. mother at bedside and aware of transfer and pt current status.
[2025-04-22] MEDS ORDERED: DIATR MEGLU/DIATRIZOATE SODIUM 30 ML BOTTLE ONE (13:38)
[2025-04-22 13:48] LABS: ABG BASE EXCESS -1.7 mmol/L (-2.0-3.0); ABG HCO3 23.0 mmol/L (21.0-28.0); ABG OXYGEN SATURATION 92.0 % (94.0-98.0); ABG PCO2 39 mmHg (35-48); ABG PH 7.386 (7.350-7.450); CARBON MONOXIDE 0.9 % (0.5-1.5); PO2, ARTERIAL BG 67.1 mmHg (83.0-108.0); TEMPERATURE, CELSIUS BG 37.0 CELSIUS (35.5-37.0); VENT MODE, BG NC (ROOM AIR)
--- NOTE | 2025-04-22 14:33 | NUR ---
PATIENT PREPPING WITH ORAL CONTRAST FOR CT EXAM. PREPPING STARTED AT [id number].
--- NOTE | 2025-04-22 14:38 | CONS ---
[facility] CONSULTATION NOTE Date Patient Seen: Apr 22, 2025 Time of Visit: 14:37 Supervising Physician: Karel Parada MD Reason for Consultation: [facility] Primary Care Physician: Justin Marcus Outpatient Specialists: [ ] Inpatient Consults: Dr Nguyen, Dr Abad, Dr Henry, DR Johnson PROBLEM LIST: Severe sepsis with MODS Leukocytosis Gram-positive cocci bacteremia Chronic microcytic and hypochromic anemia New right upper lobe spiculated infiltrative mass measuring 5.4 x 4.6 cm infiltrating mediastinal pleura and albumin in the right main pulmonary artery Bulky mediastinal lymphadenopathy with the largest node measuring 4 cm involving the right paratracheal, prevascular, pre current I&O and subcarinal stations Multiple bilateral spiculated pulmonary nodules consistent with metastatic disease progression Bilateral marked diffuse adrenal enlargement likely metastatic or hyperplastic Left iliac fossa 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 He reports his knee gave out and "locked up on him". He presented to the hospital and there was no surgical intervention indicated by orthopedic surgeon and recommended weight loss. Per primary team today pt was not doing well leukocytosis had worsened pt complained of nause and vomiting. He reported abdominal pain to periumbilical region. Per Primary team would like pt admitted to the ICU for possible ischemia. General surgery was consulted and CT chest abdomen and pelvis was ordered with PO and IV contrast. We were consulted for [facility] On assessment pt reported mild nausea, mild abdominal pain, appeared ill but in NAD on 2 L via NC. ABG + was ordered and his lactic acid 1.50 not consistent with bowel ischemia. Blood cultures growing gram + cocci. 2/2. Added vancomycin for MRSA coverage. For now he is pending CT and awaiting general surgery Dr Ba for evaluation and recommendations. PAST MEDICAL HX: see above PAST SURGICAL HX: noncontributory SOCIAL HISTORY: No tobacco, ETOH, or illicit drug use Coded Allergies: No Known Allergies (Unverified Allergy, Unknown, 09/21/22) REVIEW OF SYSTEMS: 12 point ROS reviewed with patient. Pertinent positives mentioned above. Otherwise negative. PHYSICAL EXAM: GENERAL: alert, weak, awake oriented x 3 HEENT: EOMI, Sclera non icteric, moist mucosa NC NECK: Supple, no JVD, trachea midline LUNGS: Diminished breath sounds bilaterally. No wheezes HEART: Tachycardic rate and rhythm. Normal S1 and S2, without murmurs ABD: morbidly obese Abdomen soft, nontender. Bowel sounds hypoactive EXT: No clubbing cyanosis or edema NEURO: Alert and oriented to person, follows commands Vital Signs (last 8hr) Date Time Temp Pulse Resp B/P (MAP) Pulse Ox O2 Delivery O2 Flow Rate FiO2 04/22/25 11:56 97.9 102 18 118/85 93 Nasal Cannula 3.0 04/22/25 11:53 90 Nasal Cannula* 2 28 04/22/25 08:21 90 Nasal Cannula* 1 24 04/22/25 08:10 108 20 N/Cannula Low lpm 1.0 24 04/22/25 08:00 98.2 113 19 125/77 90 Nasal Cannula 1.0 LABS: Hematology Labs: Test 04/22/25 11:09 Range/Units White Blood Count 26.5 H 4.8-10.8 K/uL Red Blood Count 4.75 4.50-6.20 MIL/uL Hemoglobin 11.1 L 14.0-18.0 g/dL Hematocrit 36.1 L 42-54 % Mean Corpuscular Volume 76.0 L 79-99 fL Mean Corpuscular Hemoglobin 23.4 L 27.0-33.0 pg Mean Corpuscular Hemoglobin Concent 30.7 L 32.0-36.0 g/dL Red Cell Distribution Width 18.4 H 11.0-15.5 % Platelet Count 293 130-400 K/uL Mean Platelet Volume 12.0 H 7.5-10.5 fL Nucleated Red Blood Cells 0.0 0.0-0.19 % Chemistry Labs: Test 04/22/25 13:57 04/22/25 11:09 Range/Units Lactic Acid Level 2.1 0.8-2.5 mmol/L Sodium Level 143 136-145 mmol/L Potassium Level 4.0 3.5-5.1 mmol/L Chloride Level 105 101-111 mmol/L Carbon Dioxide Level 26 21-32 mmol/L Blood Urea Nitrogen 33 H 7-18 mg/dL Creatinine 1.7 H 0.5-1.3 mg/dL Glomerular Filtration Rate Calc 53 >90 mL/min Random Glucose 124 H 70-105 mg/dL Total Calcium 8.9 8.5-10.1 mg/dL Magnesium Level 2.20 1.80-2.40 mg/dL Total Bilirubin 2.6 H 0.2-1.0 mg/dL Aspartate Amino Transf (AST/SGOT) 50 H 10-37 U/L Alanine Aminotransferase (ALT/SGPT) 60 12-78 U/L Alkaline Phosphatase 201 H 50-136 U/L Total Protein 7.4 6.0-8.3 g/dL Albumin 2.4 L 3.5-5.0 g/dL Coagulation Labs: Test 04/22/25 12:49 Range/Units D-Dimer Quantitative (PE/DVT) > 38673 *H 0-500 ng/mL DIAGNOSTICS / RADIOLOGY RESULTS: [ ] [place] [address] [address] IMAGING REPORT Addendum PATIENT: MARTY BARRON MR#: [id number] : 1990 SEX: M AGE: 35 LOCATION: 2B ORDER 20 STATUS: ADM IN REPORT#: [id number] SERVICE 19 REASON: MASS ORDERING PHYSICIAN: JUD BARVO MD PROCEDURE: CAP WWO - CT CHEST/ABD/PELV W/WO CONTRAS ADDENDUM REPORT ADDENDUM: Results were shared by telephone at 7:14 pm on 04-22-25 and acknowledged by JUD Blackman. /[facility] CHEST ABDOMEN AND PELVIS WITH AND WITHOUT INTRAVENOUS CONTRAST Clinical Details: Mass evaluation. Technique: Axial CT images of the chest, abdomen, and pelvis were obtained with and without intravenous contrast. Comparison: Comparison is made with the CT abdomen/pelvis examination dated 22 April 2025. Findings: Chest: A spiculated infiltrative mass is identified in the right upper lobe measuring 5.4 ??? 4.6 cm. This lesion extends from the anterosuperior to posterosuperior segments, infiltrates the mediastinal pleura, and abuts the right main pulmonary artery. There is lobulated, heterogeneous, enhancing lymphadenopathy involving the right paratracheal, prevascular, precarinal, and subcarinal stations, with the largest node measuring 4 cm. Multiple bilateral spiculated nodules ranging from 1 to 2.5 cm are present throughout both lungs, consistent with metastatic deposits. The main pulmonary artery is enlarged, measuring 3.6 cm in diameter. Additional findings include bronchovascular thickening and parenchymal scarring in the bilateral upper lobe superobasal and posterobasal segments. No evidence of pneumothorax is noted. Abdomen and Pelvis: Hepatomegaly is present with the liver measuring 17 cm in craniocaudal dimension, accompanied by fatty infiltration. The gallbladder is surgically absent. Both adrenal glands demonstrate marked diffuse enlargement, measuring 5.9 ??? 3.6 cm on the right and 7.6 ??? 5.4 cm on the left. There is a left iliac fossa Spigelian hernia with a 7 cm fascial defect containing small and large bowel. Proximal small bowel dilation up to 4 cm is seen, with collapsed distal colon, consistent with mechanical bowel obstruction. Contrast pooling is noted at the descending???sigmoid junction, though visualization is limited by artefact. The thoracolumbar spine shows degenerative spondylosis and wedging deformity of the L4 vertebral body with approximately 30???40% height loss. A right upper extremity peripherally inserted central catheter line is observed with the tip located in the superior vena cava. No free fluid or pneumoperitoneum is identified. Additional Findings: None. Impression: * Patient is undergoing mass evaluation. * Interval progression since 22 April 2025 with a new right upper lobe spiculated infiltrative mass measuring 5.4 ??? 4.6 cm infiltrating mediastinal pleura and abutting the right main pulmonary artery. * Bulky mediastinal lymphadenopathy with largest node measuring 4 cm, involving right paratracheal, prevascular, precarinal, and subcarinal stations, increased since prior study. * Multiple bilateral spiculated pulmonary nodules (1???2.5 cm), consistent with metastatic disease progression. * Bilateral marked diffuse adrenal enlargement (Right 5.9 ??? 3.6 cm, Left 7.6 ??? 5.4 cm), likely metastatic or hyperplastic. 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 * Degenerative thoracolumbar spondylosis with L4 vertebral body wedging (30???40% height loss), unchanged. * Comparison is made with the exam dated 22 April 2025. Overall findings indicate worsening metastatic disease with new primary and gloria lesions and mechanical bowel obstruction requiring clinical and surgical correlation. Recommendations include oncologic evaluation and PET-CT staging, alongside urgent surgical consultation for bowel obstruction. /[place] DICTATED BY: JOSAFAT DALY MD DATE: 04/22/251915 ELECTRONICALLY SIGNED BY: DATE: CT CHEST ABDOMEN AND PELVIS WITH AND WITHOUT INTRAVENOUS CONTRAST Clinical Details: Mass evaluation. Technique: Axial CT images of the chest, abdomen, and pelvis were obtained with and without intravenous contrast. Comparison: Comparison is made with the CT abdomen/pelvis examination dated 22 April 2025. Findings: Chest: A spiculated infiltrative mass is identified in the right upper lobe measuring 5.4 ??? 4.6 cm. This lesion extends from the anterosuperior to posterosuperior segments, infiltrates the mediastinal pleura, and abuts the right main pulmonary artery. There is lobulated, heterogeneous, enhancing lymphadenopathy involving the right paratracheal, prevascular, precarinal, and subcarinal stations, with the largest node measuring 4 cm. Multiple bilateral spiculated nodules ranging from 1 to 2.5 cm are present throughout both lungs, consistent with metastatic deposits. The main pulmonary artery is enlarged, measuring 3.6 cm in diameter. Additional findings include bronchovascular thickening and parenchymal scarring in the bilateral upper lobe superobasal and posterobasal segments. No evidence of pneumothorax is noted. Abdomen and Pelvis: Hepatomegaly is present with the liver measuring 17 cm in craniocaudal dimension, accompanied by fatty infiltration. The gallbladder is surgically absent. Both adrenal glands demonstrate marked diffuse enlargement, measuring 5.9 ??? 3.6 cm on the right and 7.6 ??? 5.4 cm on the left. There is a left iliac fossa Spigelian hernia with a 7 cm fascial defect containing small and large bowel. Proximal small bowel dilation up to 4 cm is seen, with collapsed distal colon, consistent with mechanical bowel obstruction. Contrast pooling is noted at the descending???sigmoid junction, though visualization is limited by artefact. The thoracolumbar spine shows degenerative spondylosis and wedging deformity of the L4 vertebral body with approximately 30???40% height loss. A right upper extremity peripherally inserted central catheter line is observed with the tip located in the superior vena cava. No free fluid or pneumoperitoneum is identified. Additional Findings: None. Impression: * Patient is undergoing mass evaluation. * Interval progression since 22 April 2025 with a new right upper lobe spiculated infiltrative mass measuring 5.4 ??? 4.6 cm infiltrating mediastinal pleura and abutting the right main pulmonary artery. * Bulky mediastinal lymphadenopathy with largest node measuring 4 cm, involving right paratracheal, prevascular, precarinal, and subcarinal stations, increased since prior study. * Multiple bilateral spiculated pulmonary nodules (1???2.5 cm), consistent with metastatic disease progression. * Bilateral marked diffuse adrenal enlargement (Right 5.9 ??? 3.6 cm, Left 7.6 ??? 5.4 cm), likely metastatic or hyperplastic. 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 * Degenerative thoracolumbar spondylosis with L4 vertebral body wedging (30???40% height loss), unchanged. * Comparison is made with the exam dated 22 April 2025. Overall findings indicate worsening metastatic disease with new primary and gloria lesions and mechanical bowel obstruction requiring clinical and surgical correlation. Recommendations include oncologic evaluation and PET-CT staging, alongside urgent surgical consultation for bowel obstruction. /[place] DICTATED BY: JOSAFAT DALY MD DATE: 04/22/251854 ELECTRONICALLY SIGNED BY: JOSAFAT DALY MD DATE: 04/22/251854 PLAN NEURO: Minimize central acting medications as possible. Fall Precautions. Well lighted room through the day and minimize interruptions through the night to prevent acute delirium. PULMONARY: Supplemental 02 as needed Titrate Fio2 to keep Spo2 > or = 90% DuoNebs and CPT as needed IS hourly while awake for pulmonary hygiene Out of bed to chair as tolerated CARDIOVASCULAR: Follow hemodynamics. Titrate vasopressor to keep MAP >65 or systolic blood pressure >95mmHg DRIPS: none LINES: PICC to RUE placed on 04/22/25 GI & NUTRITION: Continue nutritional support Aspirations precautions Prokinetic agents and laxatives as needed KIDNEYS & ELECTROLYTES: Strict monitoring of intake and output Daily weights Avoid nephrotoxic agents Monitor electrolytes and replace as needed Goal urine output of 30mL/hr or 0.5mL/kg/hr Urine output: [ ] Fluid Balance: [ ] ENDOCRINE: Maintain blood glucose between 100-180 at all times. Insulin sliding scale for blood glucose management INFECTIOUS DISEASE: Trend temperature. Cheek-culture if febrile. Micro: [ ] Antibiotics: [ ] Cefepime flagyl and vancomycin HEMATOLOGY & COAGULATION: Monitor H&H. Keep Hgb > 7 Transfuse 1 unit of PRBC for Hgb < 7 Transfuse 1 pack of platelets of platelets < 20, 000 Watch for any signs and symptoms of bleeding SKIN: Pressure ulcer prevention per facility protocol Rehab: PT/OT Prophylaxis: GI: Famotidine DVT: Code Status: Full Resuscitation Disposition: ICU Other: Total patient care time exceeds 35 minutes excluding all procedures. Case was discussed and seen with my supervising physician. The above plan was formulated and agreed upon. ATTESTATION BY PHYSICIAN I attest that I reviewed and discussed the case with the Physician Lead Sharepoint Developer as well as agree with the Physician Lead Sharepoint Developer's findings, plans of care, and documentation above. Karel Johnson MD, [facility] Apr 22, 2025 14:38
[2025-04-22] MEDS: 0.9% NACL 500ML IV.SOLN 500 ML IV STA (14:39)
[2025-04-22] MEDS ORDERED: VANCOMYCIN PROTOCOL PER PHARMACY IV SCH (15:00)
[2025-04-22] MEDS: VANCOMYCIN 2GM/500 ML BAG 500 ML IV ONE (15:10)
[2025-04-22] MEDS ORDERED: IOHEXOL-350 75 ML VIAL IV ONE (15:29)
--- NOTE | 2025-04-22 16:31 | HMCIMG ---
CR CHEST, 3 VIEW Clinical History: PICC line placement Comparison: CR - Chest 1VW - 04/19/25 21:58 EDT Comparison is made with the exam dated April 19, 2025. Findings: Lungs: There is no mass, infiltrate, or acute pulmonary abnormality. The lungs are otherwise clear and stable compared to the prior study. Pleural Spaces: No pleural effusion or pneumothorax is identified, unchanged from the prior exam. Mediastinum: There is apparent cardiomegaly on the current expiratory film. This represents progression compared to the prior study dated April 19, 2025, which demonstrated cardiac size and mediastinal contours within normal limits. A peripherally inserted central catheter (PICC) line is present, seen to course via the right upper extremity with the catheter tip located within the right atrium. The line position is new compared to the prior study and appropriate. Bones: No acute osseous abnormality is identified, stable from prior imaging. Impression: * Interval stable cardiomegaly compared to April 19, 2025. * New peripherally inserted central catheter (PICC) line in right upper extremity with tip positioned within the right atrium. * No acute cardiopulmonary pathology is evident. /[place]
--- NOTE | 2025-04-22 17:55 | HMCIMG ---
CT CHEST ABDOMEN AND PELVIS WITH AND WITHOUT INTRAVENOUS CONTRAST Clinical Details: Mass evaluation. Technique: Axial CT images of the chest, abdomen, and pelvis were obtained with and without intravenous contrast. Comparison: Comparison is made with the CT abdomen/pelvis examination dated 22 April 2025. Findings: Chest: A spiculated infiltrative mass is identified in the right upper lobe measuring 5.4 ??? 4.6 cm. This lesion extends from the anterosuperior to posterosuperior segments, infiltrates the mediastinal pleura, and abuts the right main pulmonary artery. There is lobulated, heterogeneous, enhancing lymphadenopathy involving the right paratracheal, prevascular, precarinal, and subcarinal stations, with the largest node measuring 4 cm. Multiple bilateral spiculated nodules ranging from 1 to 2.5 cm are present throughout both lungs, consistent with metastatic deposits. The main pulmonary artery is enlarged, measuring 3.6 cm in diameter. Additional findings include bronchovascular thickening and parenchymal scarring in the bilateral upper lobe superobasal and posterobasal segments. No evidence of pneumothorax is noted. Abdomen and Pelvis: Hepatomegaly is present with the liver measuring 17 cm in craniocaudal dimension, accompanied by fatty infiltration. The gallbladder is surgically absent. Both adrenal glands demonstrate marked diffuse enlargement, measuring 5.9 ??? 3.6 cm on the right and 7.6 ??? 5.4 cm on the left. There is a left iliac fossa Spigelian hernia with a 7 cm fascial defect containing small and large bowel. Proximal small bowel dilation up to 4 cm is seen, with collapsed distal colon, consistent with mechanical bowel obstruction. Contrast pooling is noted at the descending???sigmoid junction, though visualization is limited by artefact. The thoracolumbar spine shows degenerative spondylosis and wedging deformity of the L4 vertebral body with approximately 30???40% height loss. A right upper extremity peripherally inserted central catheter line is observed with the tip located in the superior vena cava. No free fluid or pneumoperitoneum is identified. Additional Findings: None. Impression: * Patient is undergoing mass evaluation. * Interval progression since 22 April 2025 with a new right upper lobe spiculated infiltrative mass measuring 5.4 ??? 4.6 cm infiltrating mediastinal pleura and abutting the right main pulmonary artery. * Bulky mediastinal lymphadenopathy with largest node measuring 4 cm, involving right paratracheal, prevascular, precarinal, and subcarinal stations, increased since prior study. * Multiple bilateral spiculated pulmonary nodules (1???2.5 cm), consistent with metastatic disease progression. * Bilateral marked diffuse adrenal enlargement (Right 5.9 ??? 3.6 cm, Left 7.6 ??? 5.4 cm), likely metastatic or hyperplastic. 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 * Degenerative thoracolumbar spondylosis with L4 vertebral body wedging (30???40% height loss), unchanged. * Comparison is made with the exam dated 22 April 2025. Overall findings indicate worsening metastatic disease with new primary and gloria lesions and mechanical bowel obstruction requiring clinical and surgical correlation. Recommendations include oncologic evaluation and PET-CT staging, alongside urgent surgical consultation for bowel obstruction. /[place]
--- NOTE | 2025-04-22 18:34 | CONS ---
INFECTIOUS DISEASE CONSULTATION NOTE Date of Service: Apr 22, 2025 Reason for Consultation: Elevated WBC. Requesting Physician: Dr. Usman Hernandez HISTORY OF PRESENT ILLNESS: This is a 35-year-old male patient with medical history of right knee osteoarthritis, morbid obesity, colon mass with colon resection and colostomy creation 3 months ago who presented to the hospital with severe right knee pain. Stated he tried warm packs to the right knee and it did not helped his pain. The right knee x-ray showed right knee osteoarthritis in the lateral compartment with small joint effusion and the MRI of the right knee showed tricompartment osteoarthritis with diffuse cartilage loss and grade lll lateral and medial meniscus tear. Orthopedic surgeon has evaluated patient. On examination today in the ICU patient is awake, alert and oriented and able to answer questions appropriately. No fever this afternoon, temperature is 98.1, the WBC however is elevated at 26.5. Patient was short of breath earlier today with O2 sat at 90% and has been placed on oxygen via nasal cannula at 4 L/min. A CT of the abdomen and pelvis has been obtained which showed a right upper lobe mass measuring 5.4 x 4.6 cm, bulky mediastinal lymphadenopathy with largest node measuring 4 cm, involving right paratracheal, prevascular, precarinal, and subcarinal stations, multiple bilateral pulmonary nodules consistent with metastatic disease and mechanical small-bowel obstruction. NG tube has been placed. General surgery already on the case. We will obtain Oncology consult for evaluation. Patient has been started on cefepime and metronidazole. We will continue to follow patient's care. REVIEW OF SYSTEMS CONSTITUTIONAL: Denies fever, chills, or fatigue. HEAD/FACE: No signs of trauma. EENT: Denies eye pain, blurred vision, double vision, or light sensitivity. RESPIRATORY: Denies shortness of breath, cough, wheezing CARDIOVASCULAR: Denies chest pain, palpitation, syncope GASTROINTESTINAL/ABDOMINAL: Denies abdominal pain, constipation, nausea or vomiting on arrival GENITOURINARY: Denies dysuria or hematuria. MUSCULOSKELETAL: Denies joint pain, tenderness, or trauma. Right knee pain. INTEGUMENTARY: Denies rash or itchiness NEUROLOGICAL/PSYCH: Denies anxiety, depression, heat or cold intolerance. PAST MEDICAL HISTORY: Colon mass. Right knee osteoarthritis. Morbid obesity. PAST SURGICAL HISTORY: Colon resection with colostomy creation. PAST SOCIAL HISTORY: Denies the use of tobacco, alcohol or any other illicit drug. FAMILY HISTORY: Noncontributory. Coded Allergies: No Known Allergies (Unverified Allergy, Unknown, 09/21/22) PHYSICAL EXAM EYES: Anicteric. Pupils equal and reactive. HENT: No oral thrush seen, moist Oral mucosa. NG tube, clamp. NECK: Supple, no JVD or thyromegaly. LUNGS: Good air entry. No rales, no rhonchi. CARDIOVASCULAR: S1, S2 regular. No murmur heard. ABDOMEN: Soft, non tender, bowel sounds present. Abdominal scar and Left colostomy. CENTRAL NERVOUS SYSTEM: Awake, alert, oriented x 3. SKIN: No rashes, no swelling. LYMPHATICS: No peripheral lymphadenopathy. MUSCULOSKELETAL: Right knee pain. EXTREMITIES: No cyanosis or clubbing. BACK: No deformity, no pressure ulcer. GENITOURINARY: No dysuria or hematuria. Vital Sign (Last 24 Hours) 04/22/25 04/22/25 11:56 15:30 Temp 97.9 Pulse 70 Resp 23 B/P (MAP) 136/86 Pulse Ox 93 O2 Delivery Nasal Cannula O2 Flow Rate 4.0 FiO2 36 Intake & Output (last 24hrs) 04/21/25 04/21/25 04/22/25 15:00 23:00 07:00 Intake Total 500 ml 1200 ml Output Total 600 ml 300 ml Balance -100 ml 900 ml LABS: Laboratory: Test 04/22/25 13:57 04/22/25 13:47 04/22/25 12:49 04/22/25 11:09 Range/Units Lactic Acid Level 2.1 0.8-2.5 mmol/L Total Creatine Kinase 135 # 21-232 U/L Blood Gas Specimen Type Arterial Arterial Blood pH 7.386 7.350-7.450 Arterial Blood Partial Pressure CO2 39 35-48 mmHg Arterial Blood Partial Pressure O2 67.1 L 83.0-108.0 mmHg Arterial Blood HCO3 23.0 21.0-28.0 mmol/L Arterial Blood Oxygen Saturation 92.0 L 94.0-98.0 % Arterial Blood Base Excess -1.7 -2.0-3.0 mmol/L Hemoglobin (Blood Gas) 12.2 L 13.5-17.5 g/dL Sodium (Blood Gas) 142 136-145 MMOL/L Bedside Potassium (Blood Gas) 4.1 3.4-4.5 MMOL/L Bedside Chloride (Blood Gas) 105 98-107 MMOL/L Bedside Glucose (Blood Gas) 120 H 65-95 MG/DL Bedside Ionized Calcium (Blood Gas) 1.21 1.15-1.33 MMOL/L Bedside Lactic Acid (Blood Gas) 1.50 H 0.36-0.75 MMOL/L Blood Gas Temperature 37.0 35.5-37.0 CELSIUS Blood Gas Flow-by 4.00 0.00-15.00 L/min Blood Gas Vent Mode NC ROOM AIR FiO2 36.0 % Blood Gas Specimen Comment RR RN ENRIQUE D-Dimer Quantitative (PE/DVT) > 28138 *H 0-500 ng/mL White Blood Count 26.5 H 4.8-10.8 K/uL Red Blood Count 4.75 4.50-6.20 MIL/uL Hemoglobin 11.1 L 14.0-18.0 g/dL Hematocrit 36.1 L 42-54 % Mean Corpuscular Volume 76.0 L 79-99 fL Mean Corpuscular Hemoglobin 23.4 L 27.0-33.0 pg Mean Corpuscular Hemoglobin Concent 30.7 L 32.0-36.0 g/dL Red Cell Distribution Width 18.4 H 11.0-15.5 % Platelet Count 293 130-400 K/uL Mean Platelet Volume 12.0 H 7.5-10.5 fL Nucleated Red Blood Cells 0.0 0.0-0.19 % Sodium Level 143 136-145 mmol/L Potassium Level 4.0 3.5-5.1 mmol/L Chloride Level 105 101-111 mmol/L Carbon Dioxide Level 26 21-32 mmol/L Blood Urea Nitrogen 33 H 7-18 mg/dL Creatinine 1.7 H 0.5-1.3 mg/dL Glomerular Filtration Rate Calc 53 >90 mL/min Random Glucose 124 H 70-105 mg/dL Total Calcium 8.9 8.5-10.1 mg/dL Magnesium Level 2.20 1.80-2.40 mg/dL Total Bilirubin 2.6 H 0.2-1.0 mg/dL Aspartate Amino Transf (AST/SGOT) 50 H 10-37 U/L Alanine Aminotransferase (ALT/SGPT) 60 12-78 U/L Alkaline Phosphatase 201 H 50-136 U/L Total Protein 7.4 6.0-8.3 g/dL Albumin 2.4 L 3.5-5.0 g/dL Test 04/22/25 04:45 04/21/25 14:15 04/21/25 04:45 04/20/25 21:35 Range/Units Group A Streptococcus Rapid negative NEGATIVE Influenza Type A Antigen Negative For Type A NEGATIVE Influenza Type B Antigen Negative For Type B NEGATIVE SARS-CoV-2 Antigen (Rapid) PRESUMPTIVE NEGATIVE NEGATIVE Urine Color YELLOW YELLOW Urine Appearance TURBID CLEAR Urine pH 6.0 5.0-8.0 Urine Specific [place] 1.033 H 1.001-1.031 Urine Protein 30 H NEGATIVE mg/dL Urine Glucose (UA) NEGATIVE NEGATIVE mg/dL Urine Ketones 40 H NEGATIVE mg/dL Urine Occult Blood NEGATIVE NEGATIVE Urine Nitrate NEGATIVE NEGATIVE Urine Bilirubin 1 H NEGATIVE mg/dL Urine Urobilinogen 6 H 0.2-1.0 mg/dL Urine Leukocyte Esterase NEGATIVE NEGATIVE Kelly/uL Urine RBC 0-1 0-1 /HPF Urine WBC None 0-1 /HPF Urine Squamous Epithelial Cells FEW 0-2 /HPF Urine Amorphous Crystals (Auto) RARE None Seen /LPF Urine Bacteria FEW None Seen /HPF Urine Yeast MOD None Seen /HPF Urine Opiates Screen NEGATIVE NEGATIVE Urine Barbiturates Screen NEGATIVE NEGATIVE Urine Phencyclidine Screen NEGATIVE NEGATIVE Urine Amphetamines Screen NEGATIVE NEGATIVE Urine Benzodiazepines Screen NEGATIVE NEGATIVE Urine Cocaine Screen NEGATIVE NEGATIVE Urine Marijuana (THC) Screen NEGATIVE NEGATIVE Stool Occult Blood NEGATIVE NEGATIVE DIAGNOSTICS / RADIOLOGY: PATIENT: MARTY BARRON ACCT: [id number] LOC: [facility] U: [id number] AGE/SX: 35/M ROOM: [facility] [place] RE04/19/[address]: USMAN HERNANDEZ MD : 1990 BED: 1 DIS: STATUS: ADM IN TLOC: SPEC: [id number] CHRYSTAL: 04/21/25 STATUS: RES REQ: [id number] RECD: 04/21/[address]: KENNY SIMEON SOURCE: BLOOD ENTR: 04/21/[address]: USMAN HERNANDEZ MD [facility]: BLOOD AISHA,KRISSY GALLEGO MD ORDERED: AERO ID & SENS Procedure Result Paulina Date-Time AEROBIC ID & SENSITIVITIES Preliminary 04/22/25-1157 MRL COLONY DESCRIPTION: DAY 1: GRAM POSITIVE COCCI IN CLUSTERS COAGULASE NEGATIVE STAPHYLOCOCCUS AEROBIC BOTTLE IDENTIFICATION AND SENSITIVITY TO FOLLOW PATIENT: MARTY BARRON MR#: [id number] : 1990 SEX: M AGE: 35 LOCATION: [facility] ORDER 20 STATUS: ADM IN REPORT#: [id number] SERVICE 19 REASON: MASS ORDERING PHYSICIAN: JUD BRAVO MD PROCEDURE: CAP WWO - CT CHEST/ABD/PELV W/WO CONTRAS ADDENDUM REPORT ADDENDUM: Results were shared by telephone at 7:14 pm on 04-22-25 and acknowledged by JUD Blackman. /[facility] CHEST ABDOMEN AND PELVIS WITH AND WITHOUT INTRAVENOUS CONTRAST Clinical Details: Mass evaluation. Technique: Axial CT images of the chest, abdomen, and pelvis were obtained with and without intravenous contrast. Comparison: Comparison is made with the CT abdomen/pelvis examination dated 22 April 2025. Findings: Chest: A spiculated infiltrative mass is identified in the right upper lobe measuring 5.4 ??? 4.6 cm. This lesion extends from the anterosuperior to posterosuperior segments, infiltrates the mediastinal pleura, and abuts the right main pulmonary artery. There is lobulated, heterogeneous, enhancing lymphadenopathy involving the right paratracheal, prevascular, precarinal, and subcarinal stations, with the largest node measuring 4 cm. Multiple bilateral spiculated nodules ranging from 1 to 2.5 cm are present throughout both lungs, consistent with metastatic deposits. The main pulmonary artery is enlarged, measuring 3.6 cm in diameter. Additional findings include bronchovascular thickening and parenchymal scarring in the bilateral upper lobe superobasal and posterobasal segments. No evidence of pneumothorax is noted. Abdomen and Pelvis: Hepatomegaly is present with the liver measuring 17 cm in craniocaudal dimension, accompanied by fatty infiltration. The gallbladder is surgically absent. Both adrenal glands demonstrate marked diffuse enlargement, measuring 5.9 ??? 3.6 cm on the right and 7.6 ??? 5.4 cm on the left. There is a left iliac fossa Spigelian hernia with a 7 cm fascial defect containing small and large bowel. Proximal small bowel dilation up to 4 cm is seen, with collapsed distal colon, consistent with mechanical bowel obstruction. Contrast pooling is noted at the descending???sigmoid junction, though visualization is limited by artefact. The thoracolumbar spine shows degenerative spondylosis and wedging deformity of the L4 vertebral body with approximately 30???40% height loss. A right upper extremity peripherally inserted central catheter line is observed with the tip located in the superior vena cava. No free fluid or pneumoperitoneum is identified. Additional Findings: None. Impression: * Patient is undergoing mass evaluation. * Interval progression since 22 April 2025 with a new right upper lobe spiculated infiltrative mass measuring 5.4 ??? 4.6 cm infiltrating mediastinal pleura and abutting the right main pulmonary artery. * Bulky mediastinal lymphadenopathy with largest node measuring 4 cm, involving right paratracheal, prevascular, precarinal, and subcarinal stations, increased since prior study. * Multiple bilateral spiculated pulmonary nodules (1???2.5 cm), consistent with metastatic disease progression. * Bilateral marked diffuse adrenal enlargement (Right 5.9 ??? 3.6 cm, Left 7.6 ??? 5.4 cm), likely metastatic or hyperplastic. 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 * Degenerative thoracolumbar spondylosis with L4 vertebral body wedging (30???40% height loss), unchanged. * Comparison is made with the exam dated 22 April 2025. Overall findings indicate worsening metastatic disease with new primary and gloria lesions and mechanical bowel obstruction requiring clinical and surgical correlation. Recommendations include oncologic evaluation and PET-CT staging, alongside urgent surgical consultation for bowel obstruction. /[place] DICTATED BY: JOSAFAT DALY MD DATE: 04/22/251915 ASSESSMENT: Hypoxic respiratory failure, requiring oxygen support. Gram-positive bacteremia, possible a contaminant. Leukocytosis. Right knee osteoarthritis. Bilateral pulmonary nodules consistent with metastatic disease. Small-bowel obstruction. Acute renal failure. Morbid obesity. Recent Colon mass with colon resection and colostomy creation 3 months ago. PLAN: Continue cefepime. Continue metronidazole. NG tube has been placed. Continue oxygen support. Obtain Oncology consult for evaluation. Continue GI prophylaxis. Continue pain management. We will follow up on the final culture results. Avoid nephrotoxic medications. This case was reviewed and discussed with my supervising physician Dr. Nguyen and the above assessment and plan was formulated and agreed upon. ATTESTATION BY PHYSICIAN I have seen and examined the patient. I reviewed the documentation, medical decision making, and treatment plan as noted by the mid-level provider above. I agree with the findings and plan of care. JULIANNA NGUYEN MD, [facility] Apr 22, 2025 18:34
--- NOTE | 2025-04-22 21:02 | HMCIMG ---
BILATERAL LOWER LIMB VENOUS DOPPLER ULTRASOUND Clinical Details: Evaluation for deep venous thrombosis (DVT). Leg pain and swelling. Comparison is made with the exam dated 11-05-24. Technique: Real-time ultrasound scan of the veins of the bilateral lower extremity was performed using color Doppler flow, spectral waveform analysis, and compression techniques. Findings: Deep Veins: The common femoral, superficial femoral, and popliteal veins of both lower extremities are echolucent and demonstrate normal compressibility. Normal color Doppler flow is observed throughout these veins. The visualized calf veins appear patent with no evidence of echogenic thrombus. Soft Tissues: No popliteal fossa cyst or other soft tissue abnormalities are identified. The examination was limited by the patient's large body habitus resulting in suboptimal sonographic windows. IMPRESSION: 1. No evidence of deep venous thrombosis in the bilateral lower extremities. /[place]
[2025-04-22] MEDS: ENOXAPARIN SODIUM 40 MG/0.4 ML SYRINGE SQ SCH (21:10)
[2025-04-23] VITALS (56 sets, daily range): BP systolic 115–150; BP diastolic 60–99; PULSE 97–115; RESP 20–34; TEMP 98.1–99.5; O2SAT 92–98
--- NOTE | 2025-04-23 02:18 | NUR ---
[employer] Paged Notified adoption worker for [employer] ([employer]) in regards to patient's fast heart rate in the 120s 110s. PA was updated on patient's hemodynamics and situation. PA ordered a one time dose of Labetalol 10 mg IV Push and set a parameter of Labetalol 10 mg Q 6 hours PRN as needed for a heart rate greater than 120 sustained. Order was then read back and repeated and placed for PA. No further orders given.
[2025-04-23 05:33] LABS: IMMATURE GRANULOCYTE ABSOLUTE 0.52 K/uL (0-1); NUCLEATED RED BLOOD CELLS 0.0 % (0.0-0.19); PLATELET COUNT (AUTO) 240 K/uL (130-400); RED BLOOD CELL COUNT(AUTO) 4.64 MIL/uL (4.50-6.20); RED CELL DISTRIBUTION WIDTH 18.6 % (11.0-15.5); WHITE BLOOD COUNT (AUTO) 27.6 K/uL (4.8-10.8)
[2025-04-23 05:55] LABS: ASPARTATE AMINOTRANSFERASE 48.0 U/L (10-37); CREATININE 1.2 mg/dL (0.5-1.3); GLOMERULAR FILTR. RATE CALC 81.0 mL/min (>90); GLUCOSE,RANDOM 133.0 mg/dL (70-105); SODIUM SERUM 142.0 mmol/L (136-145); TOTAL PROTEIN, SERUM 7.0 g/dL (6.0-8.3); UREA NITROGEN, BLOOD 29.0 mg/dL (7-18)
--- NOTE | 2025-04-23 06:43 | NUR ---
Consultation Notice Attempted to call the office for Dr. [facility] to ensure that the doctor is aware of pending consultation. Unable to make contact with anyone as their office was closed and no one there to take the call. Will be passing it on report.
--- NOTE | 2025-04-23 08:04 | NUR ---
Nurse Handoff Gave report to nurse Breana. All questions answered.
--- NOTE | 2025-04-23 09:28 | PN ---
[facility] PROGRESS NOTE Date Patient Seen: Apr 23, 2025 Time of Visit: 09:28 Supervising Physician: Karel Parada MD Primary Care Physician: Justin aMrcus Outpatient Specialists: [ ] Inpatient Consults: Dr Nguyen, Dr Abad, Dr Henry, DR Johnson PROBLEM LIST: Severe sepsis with MODS Leukocytosis Gram-positive cocci bacteremia Chronic microcytic and hypochromic anemia New right upper lobe spiculated infiltrative mass measuring 5.4 x 4.6 cm infiltrating mediastinal pleura and albumin in the right main pulmonary artery Bulky mediastinal lymphadenopathy with the largest node measuring 4 cm involving the right paratracheal, prevascular, and subcarinal stations Multiple bilateral spiculated pulmonary nodules consistent with metastatic disease progression Bilateral marked diffuse adrenal enlargement likely metastatic or hyperplastic Left iliac fossa 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 He is currently on 2 L via NC. No resp distress. NG tube to LIS. No plans for OR per general surgery. Suspected advanced metastasis on CT findings. Dr Johnson has been consulted. we will follow his recommendations For now pt is off pressors and has remained hemodynamically stable. He may downgrade to PCU. REVIEW OF SYSTEMS: 12 point ROS reviewed with patient. Pertinent positives mentioned above. Otherwise negative. PHYSICAL EXAM: GENERAL: alert, weak, awake oriented x 3 HEENT: EOMI, Sclera non icteric, moist mucosa NC NECK: Supple, no JVD, trachea midline LUNGS: Diminished breath sounds bilaterally. No wheezes HEART: controlled rate and rhythm. Normal S1 and S2, without murmurs ABD: morbidly obese Abdomen soft, nontender. Bowel sounds hypoactive EXT: No clubbing cyanosis or edema NEURO: Alert and oriented to person, follows commands Vital Signs (last 8hr) Date Time Temp Pulse Resp B/P (MAP) Pulse Ox O2 Delivery O2 Flow Rate FiO2 04/23/25 08:30 111 24 120/76 96 Nasal Cannula 3.0 04/23/25 08:15 98.4 111 24 119/71 94 Nasal Cannula 3.0 04/23/25 08:00 111 24 122/76 93 Nasal Cannula 3.0 04/23/25 08:00 98 Nasal Cannula* 3 32 04/23/25 07:45 108 24 124/71 92 Nasal Cannula 3.0 04/23/25 07:30 103 26 118/77 92 Nasal Cannula 3.0 04/23/25 07:15 99 20 N/Cannula Low lpm 4.0 36 04/23/25 06:45 106 27 143/92 91 04/23/25 06:30 105 24 138/84 92 04/23/25 06:15 102 25 132/79 92 04/23/25 06:00 102 27 124/77 90 CPAP 40 04/23/25 05:45 100 26 127/76 91 04/23/25 05:30 103 33 116/62 92 04/23/25 05:15 114 34 122/60 94 04/23/25 05:00 112 30 131/67 98 CPAP 40 04/23/25 04:45 111 30 132/80 98 04/23/25 04:30 112 23 141/90 98 04/23/25 04:15 108 23 134/78 98 04/23/25 04:00 98 CPAP+ 40 04/23/25 04:00 99.1 107 23 135/81 98 CPAP 40 04/23/25 03:45 115 32 140/93 99 04/23/25 03:30 113 32 139/94 99 04/23/25 03:15 106 22 122/71 98 04/23/25 03:10 115 31 40 04/23/25 03:00 110 26 116/72 98 CPAP 40 04/23/25 02:45 108 24 115/65 98 04/23/25 02:30 109 28 133/82 98 04/23/25 02:15 110 25 123/75 98 04/23/25 02:00 109 24 148/94 98 CPAP 40 04/23/25 01:45 103 25 133/87 98 04/23/25 01:30 106 23 143/90 98 LABS: Hematology Labs: Test 04/23/25 05:02 Range/Units White Blood Count 27.6 H 4.8-10.8 K/uL Red Blood Count 4.64 4.50-6.20 MIL/uL Hemoglobin 10.6 L 14.0-18.0 g/dL Hematocrit 35.5 L 42-54 % Mean Corpuscular Volume 76.5 L 79-99 fL Mean Corpuscular Hemoglobin 22.8 L 27.0-33.0 pg Mean Corpuscular Hemoglobin Concent 29.9 L 32.0-36.0 g/dL Red Cell Distribution Width 18.6 H 11.0-15.5 % Platelet Count 240 130-400 K/uL Mean Platelet Volume 12.0 H 7.5-10.5 fL Immature Granulocyte % (Auto) 1.9 H 0-1 % Neutrophils (%) (Auto) 89.4 H 40.0-77.0 % Lymphocytes (%) (Auto) 2.9 L 21.0-51.0 % Monocytes (%) (Auto) 5.6 3.0-13.0 % Eosinophils (%) (Auto) 0.0 0.0-8.0 % Basophils (%) (Auto) 0.2 0.0-5.0 % Neutrophils # (Auto) 24.7 H 1.8-7.7 K/uL Lymphocytes # (Auto) 0.8 L 1.0-4.8 K/uL Monocytes # (Auto) 1.6 H 0.1-1.0 K/uL Eosinophils # (Auto) 0.01 0.00-0.70 K/uL Basophils # (Auto) 0.06 0.00-0.20 K/uL Absolute Immature Granulocyte (auto 0.52 0-1 K/uL Nucleated Red Blood Cells 0.0 0.0-0.19 % White Cell Morphology Comment See comments Chemistry Labs: Test 04/23/25 08:51 04/23/25 05:02 04/22/25 13:57 Range/Units Lactic Acid Level 1.8 0.8-2.5 mmol/L Sodium Level 142 136-145 mmol/L Potassium Level 4.4 3.5-5.1 mmol/L Chloride Level 106 101-111 mmol/L Carbon Dioxide Level 23 21-32 mmol/L Blood Urea Nitrogen 29 H 7-18 mg/dL Creatinine 1.2 0.5-1.3 mg/dL Glomerular Filtration Rate Calc 81 >90 mL/min Random Glucose 133 H 70-105 mg/dL Total Calcium 9.1 8.5-10.1 mg/dL Magnesium Level 2.00 1.80-2.40 mg/dL Total Bilirubin 1.7 #H 0.2-1.0 mg/dL Aspartate Amino Transf (AST/SGOT) 48 H 10-37 U/L Alanine Aminotransferase (ALT/SGPT) 42 # 12-78 U/L Alkaline Phosphatase 259 #H 50-136 U/L Total Protein 7.0 6.0-8.3 g/dL Albumin 2.1 L 3.5-5.0 g/dL Total Creatine Kinase 135 # 21-232 U/L Coagulation Labs: Test 04/22/25 12:49 Range/Units D-Dimer Quantitative (PE/DVT) > 17939 *H 0-500 ng/mL DIAGNOSTICS / RADIOLOGY RESULTS: [ ][facility] [address] [place] [address] IMAGING REPORT Addendum PATIENT: MARTY BARRON MR#: [id number] : 1990 SEX: M AGE: 35 LOCATION: [facility] ORDER 162 STATUS: ADM IN REPORT#: [id number] SERVICE [id number] REASON: MASS ORDERING PHYSICIAN: JUD BRAVO MD PROCEDURE: CAP WWO - CT CHEST/ABD/PELV W/WO CONTRAS ADDENDUM REPORT ADDENDUM: Results were shared by telephone at 7:14 pm on 04-22-25 and acknowledged by JUD Blackman. /[facility] CT CHEST ABDOMEN AND PELVIS WITH AND WITHOUT INTRAVENOUS CONTRAST Clinical Details: Mass evaluation. Technique: Axial CT images of the chest, abdomen, and pelvis were obtained with and without intravenous contrast. Comparison: Comparison is made with the CT abdomen/pelvis examination dated 22 April 2025. Findings: Chest: A spiculated infiltrative mass is identified in the right upper lobe measuring 5.4 ??? 4.6 cm. This lesion extends from the anterosuperior to posterosuperior segments, infiltrates the mediastinal pleura, and abuts the right main pulmonary artery. There is lobulated, heterogeneous, enhancing lymphadenopathy involving the right paratracheal, prevascular, precarinal, and subcarinal stations, with the largest node measuring 4 cm. Multiple bilateral spiculated nodules ranging from 1 to 2.5 cm are present throughout both lungs, consistent with metastatic deposits. The main pulmonary artery is enlarged, measuring 3.6 cm in diameter. Additional findings include bronchovascular thickening and parenchymal scarring in the bilateral upper lobe superobasal and posterobasal segments. No evidence of pneumothorax is noted. Abdomen and Pelvis: Hepatomegaly is present with the liver measuring 17 cm in craniocaudal dimension, accompanied by fatty infiltration. The gallbladder is surgically absent. Both adrenal glands demonstrate marked diffuse enlargement, measuring 5.9 ??? 3.6 cm on the right and 7.6 ??? 5.4 cm on the left. There is a left il iac fossa Spigelian hernia with a 7 cm fascial defect containing small and large bowel. Proximal small bowel dilation up to 4 cm is seen, with collapsed distal colon, consistent with mechanical bowel obstruction. Contrast pooling is noted at the descending???sigmoid junction, though visualization is limited by artefact. The thoracolumbar spine shows degenerative spondylosis and wedging deformity of the L4 vertebral body with approximately 30???40% height loss. A right upper extremity peripherally inserted central catheter line is observed with the tip located in the superior vena cava. No free fluid or pneumoperitoneum is identified. Additional Findings: None. Impression: * Patient is undergoing mass evaluation. * Interval progression since 22 April 2025 with a new right upper lobe spiculated infiltrative mass measuring 5.4 ??? 4.6 cm infiltrating mediastinal pleura and abutting the right main pulmonary artery. * Bulky mediastinal lymphadenopathy with largest node measuring 4 cm, involving right paratracheal, prevascular, precarinal, and subcarinal stations, increased since prior study. * Multiple bilateral spiculated pulmonary nodules (1???2.5 cm), consistent with metastatic disease progression. * Bilateral marked diffuse adrenal enlargement (Right 5.9 ??? 3.6 cm, Left 7.6 ??? 5.4 cm), likely metastatic or hyperplastic. 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 * Degenerative thoracolumbar spondylosis with L4 vertebral body wedging (30???40% height loss), unchanged. * Comparison is made with the exam dated 22 April 2025. Overall findings indicate worsening metastatic disease with new primary and gloria lesions and mechanical bowel obstruction requiring clinical and surgical correlation. Recommendations include oncologic evaluation and PET-CT staging, alongside urgent surgical consultation for bowel obstruction. /[facility] DICTATED BY: JOSAFAT DALY MD DATE: 04/22/251915 ELECTRONICALLY SIGNED BY: DATE: CT CHEST ABDOMEN AND PELVIS WITH AND WITHOUT INTRAVENOUS CONTRAST Clinical Details: Mass evaluation. Technique: Axial CT images of the chest, abdomen, and pelvis were obtained with and without intravenous contrast. Comparison: Comparison is made with the CT abdomen/pelvis examination dated 22 April 2025. Findings: Chest: A spiculated infiltrative mass is identified in the right upper lobe measuring 5.4 ??? 4.6 cm. This lesion extends from the anterosuperior to posterosuperior segments, infiltrates the mediastinal pleura, and abuts the right main pulmonary artery. There is lobulated, heterogeneous, enhancing lymphadenopathy involving the right paratracheal, prevascular, precarinal, and subcarinal stations, with the largest node measuring 4 cm. Multiple bilateral spiculated nodules ranging from 1 to 2.5 cm are present throughout both lungs, consistent with metastatic deposits. The main pulmonary artery is enlarged, measuring 3.6 cm in diameter. Additional findings include bronchovascular thickening and parenchymal scarring in the bilateral upper lobe superobasal and posterobasal segments. No evidence of pneumothorax is noted. Abdomen and Pelvis: Hepatomegaly is present with the liver measuring 17 cm in craniocaudal dimension, accompanied by fatty infiltration. The gallbladder is surgically absent. Both adrenal glands demonstrate marked diffuse enlargement, measuring 5.9 ??? 3.6 cm on the right and 7.6 ??? 5.4 cm on the left. There is a left iliac fossa Spigelian hernia with a 7 cm fascial defect containing small and large bowel. Proximal small bowel dilation up to 4 cm is seen, with collapsed distal colon, consistent with mechanical bowel obstruction. Contrast pooling is noted at the descending???sigmoid junction, though visualization is limited by artefact. The thoracolumbar spine shows degenerative spondylosis and wedging deformity of the L4 vertebral body with approximately 30???40% height loss. A right upper extremity peripherally inserted central catheter line is observed with the tip located in the superior vena cava. No free fluid or pneumoperitoneum is identified. Additional Findings: None. Impression: * Patient is undergoing mass evaluation. * Interval progression since 22 April 2025 with a new right upper lobe spiculated infiltrative mass measuring 5.4 ??? 4.6 cm infiltrating mediastinal pleura and abutting the right main pulmonary artery. * Bulky mediastinal lymphadenopathy with largest node measuring 4 cm, involving right paratracheal, prevascular, precarinal, and subcarinal stations, increased since prior study. * Multiple bilateral spiculated pulmonary nodules (1???2.5 cm), consistent with metastatic disease progression. * Bilateral marked diffuse adrenal enlargement (Right 5.9 ??? 3.6 cm, Left 7.6 ??? 5.4 cm), likely metastatic or hyperplastic. 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 * Degenerative thoracolumbar spondylosis with L4 vertebral body wedging (30???40% height loss), unchanged. * Comparison is made with the exam dated 22 April 2025. Overall findings indicate worsening metastatic disease with new primary and gloria lesions and mechanical bowel obstruction requiring clinical and surgical correlation. Recommendations include oncologic evaluation and PET-CT staging, alongside urgent surgical consultation for bowel obstruction. /[facility] DICTATED BY: JOSAFAT DALY MD DATE: 04/22/251854 ELECTRONICALLY SIGNED BY: JOSAFAT DALY MD DATE: 04/22/251854 PLAN recommend oncology consult may downgrade to medical floor maintain sats above 92 % continue PUD and DVT PPX NEURO: Minimize central acting medications as possible. Fall Precautions. Well lighted room through the day and minimize interruptions through the night to prevent acute delirium. PULMONARY: Supplemental 02 as needed Titrate Fio2 to keep Spo2 > or = 90% DuoNebs and CPT as needed IS hourly while awake for pulmonary hygiene Out of bed to chair as tolerated CARDIOVASCULAR: Follow hemodynamics. Titrate vasopressor to keep MAP >65 or systolic blood pressure >95mmHg DRIPS: none LINES: PICC to RUE placed on 04/22/25 GI & NUTRITION: Continue nutritional support Aspirations precautions Prokinetic agents and laxatives as needed KIDNEYS & ELECTROLYTES: Strict monitoring of intake and output Daily weights Avoid nephrotoxic agents Monitor electrolytes and replace as needed Goal urine output of 30mL/hr or 0.5mL/kg/hr Urine output: [ ] Fluid Balance: [ ] ENDOCRINE: Maintain blood glucose between 100-180 at all times. Insulin sliding scale for blood glucose management INFECTIOUS DISEASE: Trend temperature. Cheek-culture if febrile. Micro: [ ] Antibiotics: [ ] Cefepime flagyl and vancomycin HEMATOLOGY & COAGULATION: Monitor H&H. Keep Hgb > 7 Transfuse 1 unit of PRBC for Hgb < 7 Transfuse 1 pack of platelets of platelets < 20, 000 Watch for any signs and symptoms of bleeding SKIN: Pressure ulcer prevention per facility protocol Rehab: PT/OT Prophylaxis: GI: Famotidine DVT: Code Status: Full Resuscitation Disposition: ICU Other: Total patient care time exceeds 35 minutes excluding all procedures. Case was discussed and seen with my supervising physician. The above plan was formulated and agreed upon. ATTESTATION BY PHYSICIAN I attest that I reviewed and discussed the case with the Physician [employer] as well as agree with the Physician [employer]'s findings, plans of care, and documentation above. Karel Johnson MD, [facility] Apr 23, 2025 09:28
--- NOTE | 2025-04-23 10:15 | PN ---
[facility] PROGRESS NOTE Date of Service: Apr 23, 2025 Time of Service: 10:12 SUBJECTIVE: 04/20 the patient has been seen and examined at bedside, case discussed with the RN, no acute events overnight, the time of my visit, the patient is awake, following commands, blood pressure 140/90, afebrile, saturating normal on room air. The patient is morbidly obese, he uses a CPAP at home, currently CPAP at bedside during my visit. WBC 14.0, hemoglobin 10.4, hematocrit 34.8, platelet count of 305. CMP shows sodium 141, potassium 3.5, BUN 70, creatinine 0.9, iron level of 25. X-ray of the knee showing moderate to severe three, power mental right knee osteoarthritis, predominantly in the lateral compartment, with small joint effusion. No acute fracture. Orthopedic physician consultation requested, we will follow input and recommendation. MRI of the right knee requested, however due to morbid obesity, might not be able to do it. Discussed with the mother is at the bedside, all questions answered, in agreement. 04/21 patient has been seen and examined at bedside, case discussed with the RN, no acute events overnight, the time my visit he is awake, following commands, admits mild dry nonproductive cough, spiked fever 102.6. Denied chest pain, shortness shortness for breath, no nausea, no vomiting, no abdominal discomfort. The patient has a colostomy bag, on examination, liquid stool noted. WBC slowly trending down at 12.7, hemoglobin stable 11.6. Magnesium 1.7. Added doxycycline 100 mg IV q.12 hours. Follow serology to include SARS antigen, influenza and rapid strep. We will give magnesium sulfate 2 g IV x1. We will order GI stool panel. Patient is scheduled for MRI to the right knee today, continue lidocaine patch, discussed with the orthopedic physician today, we will follow input and recommendation. 04/22 patient is seen and examined at bedside, discussed with the RN. Patient currently feels nauseated. He admits mild discomfort to the right lower quadrant. BP 135/77, mildly tachycardic at 108, saturating normal on room air. Maximum temperature last 24 hours 102.7. CBC shows a hemoglobin of 11.6, hematocrit 35.7, platelet count of 276, with a platelet count of 23.8. Creatinine 2.1. MRI of the right knee shows tricompartmental osteoarthritis with osteophytosis and diffuse cartilage loss, medial and lateral meniscal with complex degenerative tear involving posterior horns and bodies, meniscal tear severity grade 3, full-thickness chondral defect of the lateral femoral condyle, with a underlying subchondral edema, small reactive joint effusion with mild synovitis. We will upgraded the patient to the PCU, LR at 50 mL/hours, follow repeat CBC, CMP and magnesium level. Continue Rocephin and doxycycline IV. We will order a CT of the abdomen and pelvis without contrast to rule out intra- abdominal acute pathology. Orthopedic input noted and appreciated, patient with bad arthritis, we will finally benefit from knee replacement, however considering his morbid obesity, it is not indicated right now. Recommended co nservative approach. Mother at bedside, all questions answered, updated, in agreement with plan of care. 04/23 patient is seen and examined at bedside, discussed with the RN, no acute events overnight, patient upgraded to the ICU yesterday due to sepsis and developing small bowel obstruction. Today the patient is awake, following commands, he is NPO, NG tube to intermittent suction, BP 120/76, heart rate of 111, saturating 96% 3 L nasal cannula, temperature 98.4. WBC of 27.6, hemoglobin 10.6, hematocrit 35.5, platelet count 240, creatinine improved to 1.2. Septic workup with blood culture positive for Staphylococcus epidermidis. Echocardiogram and chest x-ray pending. Patient will remain admitted to the ICU, continue broad-spectrum IV antibiotics, we will follow surgical input recommendation. Continue to follow critical Care and ID input and recommendation. And we will update the mother regarding results of CT of the abdomen pelvis and further plan of care when she is present in the room. CT abdomen and pelvis reviewed, as follows: * Patient is undergoing mass evaluation. * Interval progression since 22 April 2025 with a new right upper lobe spiculated infiltrative mass measuring 5.4 ??? 4.6 cm infiltrating mediastinal pleura and abutting the right main pulmonary artery. * Bulky mediastinal lymphadenopathy with largest node measuring 4 cm, involving right paratracheal, prevascular, precarinal, and subcarinal stations, increased since prior study. * Multiple bilateral spiculated pulmonary nodules (1???2.5 cm), consistent with metastatic disease progression. * Bilateral marked diffuse adrenal enlargement (Right 5.9 ??? 3.6 cm, Left 7.6 ??? 5.4 cm), likely metastatic or hyperplastic. 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 * Degenerative thoracolumbar spondylosis with L4 vertebral body wedging (30???40% height loss), unchanged. * Comparison is made with the exam dated 22 April 2025. Overall findings indicate worsening metastatic disease with new primary and gloria lesions and mechanical bowel obstruction requiring clinical and surgical correlation. Recommendations include oncologic evaluation and PET-CT staging, alongside urgent surgical consultation for bowel obstruction. REVIEW OF SYSTEMS CONSTITUTIONAL: Denies fevers, chills, or night sweats. No unintentional weight loss reported. NEUROLOGICAL: Denies headache, amaurosis fugax, motor weakness, sensory defi cit, vertigo/spinning sensation, gait abnormalities, or tremors. ENT: No hearing loss, otalgia, otorrhea, rhinitis, rhinorrhea, hoarseness, or sore throat. CARDIOVASCULAR: Denies any exertional angina, dyspnea on exertion, orthopnea, paroxysmal nocturnal dyspnea, palpitations, life-threatening arrhythmias, claudication. PULMONARY: Denies any shortness of breath, cough, phlegm/sputum, hemoptysis, pleuritic chest pain. SLEEP: Denies morning headaches, daytime somnolence or napping. Denies difficulty falling asleep, staying asleep, waking from sleep. Denies knowledge of snoring. GASTROINTESTINAL: Denies any type of dysphagia to either liquids or solids. Denies nausea, vomiting, pyrosis, early satiety, abdominal pain, diarrhea, constipation, or changes in stool consistency or caliber. Denies coffee-ground emesis, hematemesis, hematochezia, or melanotic stools. GENITOURINARY: Denies frequency, urgency, nocturia, hematuria or incontinence (Storage/Irritative symptoms.) Low urinary stream, straining to void, urinary intermittency or hesitancy, splitting of the voiding stream, terminal dribbling. ENDOCRINOLOGIC: Denies polyuria, polydipsia, polyphagia or heat/cold intolerances. HEMATOLOGIC: Denies thrombophilia/previous clots, or coagulopathy/bleeding disorders. ONCOLOGIC: Denies personal history of malignancy. DERMATOLOGIC: Denies rashes or pruritus. PSYCHIATRIC: Denies any suicidal or homicidal ideation. Denies hallucinations. PHYSICAL EXAM GENERAL APPEARANCE: The patient is awake, alert, and oriented, in no acute cardiopulmonary distress. NEUROLOGICAL: Cranial nerves II-XII grossly intact. Motor is 5/5 in bilateral upper and lower extremities proximal to distal. No sensory deficits. HEENT: Face is symmetric. Pupils are equal and reactive. Extraocular movements are intact. NECK: Supple. No JVD. No thyromegaly. No submental, submandibular, pre- /postauricular, occipital or supraclavicular lymphadenopathy. CHEST: Normal chest expansion. No Telemetry. LUNGS: Absence of any rales, rhonchi or any wheezing. CARDIOVASCULAR: Regular. S1 and S2 normal. No appreciable rubs, murmurs or gallops. ABDOMEN: Abdomen is soft, bowel sounds are present, minimal discomfort to the right lower quadrant, colostomy bag with liquid stool. : Deferred. No Doe. EXTREMITIES: Mild swelling to the right knee area, lidocaine patch in place. SKIN: No skin breakdown. Vital Signs (last 8hr) Date Time Temp Pulse Resp B/P (MAP) Pulse Ox O2 Delivery O2 Flow Rate FiO2 04/23/25 08:30 111 24 120/76 96 Nasal Cannula 3.0 04/23/25 08:15 98.4 111 24 119/71 94 Nasal Cannula 3.0 04/23/25 08:00 111 24 122/76 93 Nasal Cannula 3.0 04/23/25 08:00 98 Nasal Cannula* 3 32 04/23/25 07:45 108 24 124/71 92 Nasal Cannula 3.0 04/23/25 07:30 103 26 118/77 92 Nasal Cannula 3.0 04/23/25 07:15 99 20 N/Cannula Low lpm 4.0 36 04/23/25 06:45 106 27 143/92 91 04/23/25 06:30 105 24 138/84 92 04/23/25 06:15 102 25 132/79 92 04/23/25 06:00 102 27 124/77 90 CPAP 40 04/23/25 05:45 100 26 127/76 91 04/23/25 05:30 103 33 116/62 92 04/23/25 05:15 114 34 122/60 94 04/23/25 05:00 112 30 131/67 98 CPAP 40 04/23/25 04:45 111 30 132/80 98 04/23/25 04:30 112 23 141/90 98 04/23/25 04:15 108 23 134/78 98 04/23/25 04:00 98 CPAP+ 40 04/23/25 04:00 99.1 107 23 135/81 98 CPAP 40 04/23/25 03:45 115 32 140/93 99 04/23/25 03:30 113 32 139/94 99 04/23/25 03:15 106 22 122/71 98 04/23/25 03:10 115 31 40 04/23/25 03:00 110 26 116/72 98 CPAP 40 04/23/25 02:45 108 24 115/65 98 04/23/25 02:30 109 28 133/82 98 04/23/25 02:15 110 25 123/75 98 LABS: Laboratory: Test 04/23/25 08:51 04/23/25 05:02 04/22/25 13:57 04/22/25 13:47 Range/Units Lactic Acid Level 1.8 0.8-2.5 mmol/L White Blood Count 27.6 H 4.8-10.8 K/uL Red Blood Count 4.64 4.50-6.20 MIL/uL Hemoglobin 10.6 L 14.0-18.0 g/dL Hematocrit 35.5 L 42-54 % Mean Corpuscular Volume 76.5 L 79-99 fL Mean Corpuscular Hemoglobin 22.8 L 27.0-33.0 pg Mean Corpuscular Hemoglobin Concent 29.9 L 32.0-36.0 g/dL Red Cell Distribution Width 18.6 H 11.0-15.5 % Platelet Count 240 130-400 K/uL Mean Platelet Volume 12.0 H 7.5-10.5 fL Immature Granulocyte % (Auto) 1.9 H 0-1 % Neutrophils (%) (Auto) 89.4 H 40.0-77.0 % Lymphocytes (%) (Auto) 2.9 L 21.0-51.0 % Monocytes (%) (Auto) 5.6 3.0-13.0 % Eosinophils (%) (Auto) 0.0 0.0-8.0 % Basophils (%) (Auto) 0.2 0.0-5.0 % Neutrophils # (Auto) 24.7 H 1.8-7.7 K/uL Lymphocytes # (Auto) 0.8 L 1.0-4.8 K/uL Monocytes # (Auto) 1.6 H 0.1-1.0 K/uL Eosinophils # (Auto) 0.01 0.00-0.70 K/uL Basophils # (Auto) 0.06 0.00-0.20 K/uL Absolute Immature Granulocyte (auto 0.52 0-1 K/uL Nucleated Red Blood Cells 0.0 0.0-0.19 % White Cell Morphology Comment See comments Sodium Level 142 136-145 mmol/L Potassium Level 4.4 3.5-5.1 mmol/L Chloride Level 106 101-111 mmol/L Carbon Dioxide Level 23 21-32 mmol/L Blood Urea Nitrogen 29 H 7-18 mg/dL Creatinine 1.2 0.5-1.3 mg/dL Glomerular Filtration Rate Calc 81 >90 mL/min Random Glucose 133 H 70-105 mg/dL Total Calcium 9.1 8.5-10.1 mg/dL Magnesium Level 2.00 1.80-2.40 mg/dL Total Bilirubin 1.7 #H 0.2-1.0 mg/dL Aspartate Amino Transf (AST/SGOT) 48 H 10-37 U/L Alanine Aminotransferase (ALT/SGPT) 42 # 12-78 U/L Alkaline Phosphatase 259 #H 50-136 U/L Total Protein 7.0 6.0-8.3 g/dL Albumin 2.1 L 3.5-5.0 g/dL Total Creatine Kinase 135 # 21-232 U/L Blood Gas Specimen Type Arterial Arterial Blood pH 7.386 7.350-7.450 Arterial Blood Partial Pressure CO2 39 35-48 mmHg Arterial Blood Partial Pressure O2 67.1 L 83.0-108.0 mmHg Arterial Blood HCO3 23.0 21.0-28.0 mmol/L Arterial Blood Oxygen Saturation 92.0 L 94.0-98.0 % Arterial Blood Base Excess -1.7 -2.0-3.0 mmol/L Hemoglobin (Blood Gas) 12.2 L 13.5-17.5 g/dL Sodium (Blood Gas) 142 136-145 MMOL/L Bedside Potassium (Blood Gas) 4.1 3.4-4.5 MMOL/L Bedside Chloride (Blood Gas) 105 98-107 MMOL/L Bedside Glucose (Blood Gas) 120 H 65-95 MG/DL Bedside Ionized Calcium (Blood Gas) 1.21 1.15-1.33 MMOL/L Bedside Lactic Acid (Blood Gas) 1.50 H 0.36-0.75 MMOL/L Blood Gas Temperature 37.0 35.5-37.0 CELSIUS Blood Gas Flow-by 4.00 0.00-15.00 L/min Blood Gas Vent Mode NC ROOM AIR FiO2 36.0 % Blood Gas Specimen Comment RR RN ENRIQUE Test 04/22/25 12:49 04/22/25 04:45 04/21/25 14:15 Range/Units D-Dimer Quantitative (PE/DVT) > 89712 *H 0-500 ng/mL Group A Streptococcus Rapid negative NEGATIVE Influenza Type A Antigen Negative For Type A NEGATIVE Influenza Type B Antigen Negative For Type B NEGATIVE SARS-CoV-2 Antigen (Rapid) PRESUMPTIVE NEGATIVE NEGATIVE Current Medications Medications (Trade) Dose Ordered Sig/Checo Route PRN Reason Start Time Stop Time Status Last Admin Dose Admin Acetaminophen (TYLenol 325MG TAB) 650 mg Q6H PRN PO FEVER/pain 1-3 04/19/25 22:00 05/19/25 21:59 04/21/25 02:20 650 MG Cefepime HCl (MAXipime 2 gm vial) 2 gm Q8H IVPB 04/22/25 13:00 05/02/25 12:59 04/23/25 04:17 2 GM Ceftriaxone Sodium (ROCEphine 1G INJ) 1 gm Q24H IVPB 04/20/25 10:00 04/22/25 12:41 DC 04/22/25 10:53 1 GM Doxycycline Hyclate 250 ml @ 125 mls/hr Q12H IV 04/21/25 08:30 04/22/25 12:41 DC 04/22/25 08:14 125 MLS/HR Enoxaparin Sodium (Lovenox) 40 mg DAILY SQ 04/20/25 09:00 04/22/25 20:00 DC 04/22/25 08:14 40 MG Enoxaparin Sodium (Lovenox) 40 mg Q12H SQ 04/22/25 21:00 05/20/25 08:59 04/23/25 08:24 40 MG Famotidine (Pepcid 20mg Tab) 20 mg DAILY PO 04/20/25 09:00 05/20/25 08:59 04/22/25 08:14 20 MG Hydralazine HCl (APRESOLine 20MG INJ) 5 mg Q6H PRN IV For:SBP above 160;DBP above 90 04/20/25 16:00 05/20/25 15:59 Hydralazine HCl (APRESOLine 20MG INJ) 10 mg Q6H PRN IV For:SBP above 160;DBP above 90 04/19/25 22:00 04/20/25 10:52 DC Hydromorphone HCl (DiLAUDid 0.5MG INJ) 0.5 mg Q4H PRN IVP SEVERE PAIN (7-10) 04/22/25 20:00 04/27/25 19:59 Ketorolac Tromethamine (toRADol) 15 mg Q6H PRN IV MODERATE PAIN (4-6) 04/20/25 11:00 04/22/25 19:58 DC 04/20/25 22:08 15 MG Labetalol HCl (TRANdate 20MG SYG) 10 mg Q6H PRN IV SUSTAINED HR >120 04/23/25 00:00 05/23/25 00:00 Lactated Ringer's 1,000 ml @ 75 mls/hr [id number] IV 04/21/25 12:30 05/21/25 12:29 04/23/25 03:19 150 MLS/HR Lactated Ringer's 1,000 ml @ 100 mls/hr Q10H IV 04/19/25 22:00 04/20/25 10:52 DC 04/21/25 12:40 100 MLS/HR Lactulose (Constulose 20gm/ 30ml Udcup) 20 gm BID PRN PO CONSTIPATION 04/19/25 22:00 05/19/25 21:59 Lidocaine (Lidocaine Patch 4%) 1 each DAILY TP 04/21/25 09:00 05/21/25 08:59 04/23/25 08:25 1 EACH Magnesium Sulfate 50 ml @ 0 mls/hr PROTOCOL IV 04/21/25 08:30 05/21/25 08:29 04/21/25 12:06 50 MLS/HR Metronidazole/ Sodium Chloride 100 ml @ 100 mls/hr Q8H6 IVPB 04/22/25 14:00 05/02/25 13:59 04/23/25 05:33 100 MLS/HR Morphine Sulfate (morPHINE 4MG SYG) 4 mg Q4H PRN IVP SEVERE PAIN (7-10) 04/19/25 22:00 04/20/25 10:52 DC Ondansetron HCl (zoFRAN 4MG INJ) 4 mg Q6H PRN IV NAUSEA/VOMITING 04/19/25 22:00 05/19/25 21:59 04/22/25 04:36 4 MG Promethazine HCl (Phenergan) 12.5 mg Q8H5 PRN IM NAUSEA/VOMITING 04/22/25 12:30 05/22/25 12:29 04/22/25 12: 12.5 MG Sodium Chloride 500 ml @ 0 mls/hr Q0M STAT IV 04/22/25 13:17 04/22/25 13:22 DC 04/22/25 14:39 600 MLS/HR Vancomycin HCl (Vancomycin Protocol) 1 each AD IV 04/22/25 15:00 05/06/25 14:59 DIAGNOSTICS / RADIOLOGY: [ ] ASSESSMENT: Right knee osteoarthritis, POA Intractable knee pain, POA Obesity, POA PLAN: patient is seen and examined at bedside, discussed with the RN, no acute events overnight, patient upgraded to the ICU yesterday due to sepsis and developing small bowel obstruction. Today the patient is awake, following commands, he is NPO, NG tube to intermittent suction, BP 120/76, heart rate of 111, saturating 96% 3 L nasal cannula, temperature 98.4. WBC of 27.6, hemoglobin 10.6, hematocrit 35.5, platelet count 240, creatinine improved to 1.2. Septic workup with blood culture positive for Staphylococcus epidermidis. Echocardiogram and chest x-ray pending. Patient will remain admitted to the ICU, continue broad- spectrum IV antibiotics, we will follow surgical input recommendation. Continue to follow critical Care and ID input and recommendation. And we will update the mother regarding results of CT of the abdomen pelvis and further plan of care when she is present in the room. CT abdomen and pelvis reviewed, as follows: * Patient is undergoing mass evaluation. * Interval progression since 22 April 2025 with a new right upper lobe spiculated infiltrative mass measuring 5.4 ??? 4.6 cm infiltrating mediastinal pleura and abutting the right main pulmonary artery. * Bulky mediastinal lymphadenopathy with largest node measuring 4 cm, involving right paratracheal, prevascular, precarinal, and subcarinal stations, increased since prior study. * Multiple bilateral spiculated pulmonary nodules (1???2.5 cm), consistent with metastatic disease progression. * Bilateral marked diffuse adrenal enlargement (Right 5.9 ??? 3.6 cm, Left 7.6 ??? 5.4 cm), likely metastatic or hyperplastic. 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 * Degenerative thoracolumbar spondylosis with L4 vertebral body wedging (30???40% height loss), unchanged. * Comparison is made with the exam dated 22 April 2025. Overall findings indicate worsening metastatic disease with new primary and gloria lesions and mechanical bowel obstruction requiring clinical and surgical correlation. Recommendations include oncologic evaluation and PET-CT staging, alongside urgent surgical consultation for bowel obstruction. NEURO: Minimize central acting medications as possible. Fall Precautions. Well lighted room through the day and minimize interruptions through the night to prevent acute delirium. PULMONARY: Supplemental 02 as needed BiPAP as necessary, for respiratory distress Titrate Fio2 to keep Spo2 > or = 90% DuoNebs and CPT as needed IS hourly while awake for pulmonary hygiene prn Out of bed to chair as tolerated Maintain aspiration precautions at all times CARDIOVASCULAR: Follow hemodynamics. Vital signs per facility protocol GI & NUTRITION: Continue nutritional support Aspirations precautions Prokinetic agents and laxatives as needed KIDNEYS & ELECTROLYTES: Strict monitoring of intake and output Daily weights Avoid nephrotoxic agents Monitor electrolytes and replace as needed Goal urine output of 30mL/hr or 0.5mL/kg/hr Medications to be dosed according to renal function. Avoid contrast if possible ENDOCRINE: Maintain blood glucose between 100-180 at all times. Insulin sliding scale for blood glucose management Hypoglycemia and hyperglycemia protocol in place INFECTIOUS DISEASE: Trend temperature, WBC and procalcitonin level Follow cultures, deescalate antibiotics as soon as possible. Panculture if new onset fever HEMATOLOGY & COAGULATION: Monitor H&H. Keep Hgb > 7 Transfuse 1 unit of PRBC for Hgb < 7 Transfuse 1 pack of platelets of platelets < 20, 000 Watch for any signs and symptoms of bleeding SKIN: Pressure ulcer prevention per facility protocol Specialty mattress as needed ORTHO/REHAB Continue PT/OT PRN: MEDICATIONS Tylenol 650 mg po every 4 hrs for fever zofran 4 mg IV every 6 hrs for n/v Hydralazine 5 mg IV every 4 hrs systolic pressure > 160 bowel regiment: lactulose 20 gm PO BID PRN constipation Supportive measures: Continue GI and DVT prophylaxis Disposition: Pending improvement in clinical condition All questions answered time spent: > 35 min TITA PETERSON MD Apr 23, 2025 10:15
--- NOTE | 2025-04-23 11:00 | NUR ---
ON HOLD PER DAVON. Addendum: 04/23/25 at 1258 by MAYRA LR PT Amended: Links added.
--- NOTE | 2025-04-23 13:32 | HMCIMG ---
EXAM: CHEST RADIOGRAPH, SINGLE VIEW Technique: A portable anteroposterior single-view radiograph of the chest was obtained. The examination was repeated for improved image quality and is of diagnostic quality. Sensitivity is limited on a single frontal projection; small pleural effusions and small pneumothoraces may remain below the threshold of detection. Comparison is made with the single-view chest radiograph from April 22, 2025 at 3:54 p.m. Eastern Daylight Time. Clinical Information: Hypoxic respiratory failure. Findings: There is new right basilar subsegmental atelectasis versus developing airspace consolidation. The remaining lungs show no focal pulmonary mass or additional focal airspace opacity. No pleural effusion is identified. No pneumothorax is identified. The cardiac silhouette is not enlarged. A peripherally inserted central catheter is present, coursing from the right upper extremity with the catheter tip projecting at the inferior margin of the right second rib along the midclavicular line; this line is new from the prior examination and the position is acceptable. No acute osseous abnormality is identified. Impression: * Interval right basilar atelectasis versus early consolidation, which may reflect atelectasis, aspiration, or developing infection in the setting of hypoxic respiratory failure. * Peripherally inserted central catheter from the right upper extremity with acceptable tip position for central venous access. * No pleural effusion or pneumothorax detected on this single-view examination. * Cardiac silhouette not enlarged. /Kong
--- NOTE | 2025-04-23 14:59 | HMCSR ---
APPROVED REPORT EXAM: Two-dimensional and M-mode echocardiogram with Doppler and color Doppler. INDICATION ICD: Rule out endocarditis, rule out clot or pulmonary embolism 2D Dimensions RVDd3.6 cmLVEF(%)56.6 (>50%)LVED Vol(simp.)103.0 mL IVSd0.9 (0.7-1.1cm)FS(%)30 %LVES Vol(simp.)45.0 mL LVDd4.8 (3.8-5.6cm)LA (2D)3.3 (1.6-4.0cm)LVEF(%, simp.)56 % PWd1.1 (0.7-1.1cm)Ao Root(2D)3.4 (2.0-3.7cm)LA ESV INDEX (BP)17.03 mL/m2 IVSs1.0 cmLVOT diam2.6 (1.8-2.4cm) LVDs3.4 (2.5-4.0cm)IVC diam1.1 cm PWs1.0 cm Deformation Strain Apical 4-14.1 % Apical 2-15.4 % Apical 3-13.0 % Global Strain-14.2 % M-Mode Dimensions EPSS0.6 cm LA (MM)3.8 (1.6-4.0cm) Ao Root(MM)3.8 (2.0-3.7cm) Aortic Valve AoV Vmax1.5 m/Ravi Peak GR9.3 mmHgLVOT Vmax1.3 m/s AoV VTI0.2 mAo Mean GR5.5 mmHgLVOT VTI0.18 m AARON (VMAX)4.54 cm2AVA (VTI) 4.4 cm2 Mitral Valve MV E Vmax70.7 cm/sDECEL Zojy091 ms MV A Vmax67.4 cm/sP 1/2 T46 ms E/A ratio1.0MVA (PHT)4.7 cm2 TDI E/E' Medial6.3E/E' Lateral6.1 Medial E' Peak V11.25 cm/sLateral E' Peak V11.56 cm/s Pulmonary Valve PV Vmax1.6 m/sPV VTI0.19 mPV Mean GR5.0 mmHg PV Peak GR10.4 mmHg Tricuspid Valve TR Vmax3.6 m/sRAP (EST) 3 agTtNOEE11.1 mmHg TR Peak GR61.1 mmHg Left Ventricle The left ventricle is normal size. GLS -14.0% There is normal left ventricular wall thickness. LVEF i s 50-55%. No left ventricle thrombus noted on this study. The left ventricular diastolic function is normal. Right Ventricle The right ventricle is normal size. The right ventricular systolic function is normal. Atria The left atrium size is normal. There is no mass or thrombus suspected in the left atrium. The right atrium size is normal. There is no mass or thrombus suspected in the right atrium. Aortic Valve The aortic valve is trileafelt normal in structure. No aortic regurgitation is present. No aortic farrukh vular vegetation noted. There is no aortic valvular stenosis. Mitral Valve The mitral valve is normal in structure. There is no mitral valve regurgitation noted. There are no m itral valve vegetation noted. There is no mitral valve stenosis. Tricuspid Valve The tricuspid valve is normal in structure. There is mild tricuspid valve regurgitation noted by colo r Doppler. RVSP 61mmHg. There is no tricuspid valve vegetation. Pulmonic Valve The pulmonary valve is not well visualized. There is no pulmonic valvular regurgitation. Great Vessels The aortic root is normal in size. The IVC is normal in size and collapses >50% with inspiration. Pericardium There is no pericardial effusion. Other Information Quality : Technically difficult study due to body habitus Rhythm : NSR Conclusion LVEF is 50-55%. No left ventricle thrombus noted on this study. No intracardiac masses No valvular vegetations
[2025-04-23] MEDS: VANCOMYCIN 1.25 GM/250 ML BAG 250 ML IV ONE (17:55)
--- NOTE | 2025-04-23 18:02 | PN ---
INFECTIOUS DISEASE PROGRESS NOTE Date of Service: Apr 23, 2025 SUBJECTIVE: This is a 35-year-old male patient admitted for right knee pain who was seen and examined at bedside in room 207. The WBC remains elevated at 27.6 but has remained afebrile for the past 48 hours. The renal function improved with a BUN of 29 and creatinine of 1.2. The NG tube is now to low intermittent suction. Abdomen is soft. No reports of nausea or vomiting. The final blood culture results came back positive for Staphylococcus epidermidis which is a contaminant. We will continue on cefepime and metronidazole. PHYSICAL EXAM EYES: Anicteric. Pupils equal and reactive. HENT: No oral thrush seen, moist Oral mucosa. NG tube to low intermittent suction. NECK: Supple, no JVD or thyromegaly. LUNGS: Good air entry. No rales, no rhonchi. CARDIOVASCULAR: S1, S2 regular. No murmur heard. ABDOMEN: Abdomen is large but Soft, bowel sounds present. Abdominal scar and Left colostomy. CENTRAL NERVOUS SYSTEM: Awake, alert, oriented x 3. SKIN: No rashes, no swelling. LYMPHATICS: No peripheral lymphadenopathy. MUSCULOSKELETAL: Right knee pain. EXTREMITIES: No cyanosis or clubbing. BACK: No deformity, no pressure ulcer. GENITOURINARY: No dysuria or hematuria. Vital Sign (Last 12 Hours) 04/23/25 04/23/25 04/23/25 04/23/25 06:15 06:30 06:45 07:15 Pulse 102 105 106 99 Resp 20 B/P (MAP) 132/79 138/84 143/92 Pulse Ox 92 92 91 O2 Delivery N/Cannula Low lpm O2 Flow Rate 4.0 FiO2 36 04/23/25 04/23/25 04/23/25 04/23/25 07:30 07:45 08:00 08:00 Pulse 103 108 111 Resp B/P (MAP) 118/77 124/71 122/76 Pulse Ox 92 92 98 93 O2 Delivery Nasal Cannula Nasal Cannula Nasal Cannula* Nasal Cannula O2 Flow Rate 3.0 3.0 3 3.0 FiO2 32 04/23/25 04/23/25 04/23/25 04/23/25 08:15 08:30 08:45 09:00 Temp 98.4 Pulse 111 111 106 105 Resp 24 B/P (MAP) 119/71 120/76 122/78 124/81 Pulse Ox 94 96 94 92 O2 Delivery Nasal Cannula Nasal Cannula O2 Flow Rate 3.0 3.0 04/23/25 04/23/25 04/23/25 04/23/25 09:15 09:30 09:45 10:00 Pulse 101 107 98 105 Resp B/P (MAP) 143/94 150/98 149/98 148/99 Pulse Ox 93 94 93 94 O2 Delivery Nasal Cannula O2 Flow Rate 3.0 04/23/25 04/23/25 04/23/25 04/23/25 10:15 10:30 10:45 11:30 Pulse 108 108 108 102 Resp B/P (MAP) 135/86 137/99 129/75 126/75 Pulse Ox 95 95 94 93 O2 Delivery Nasal Cannula Nasal Cannula O2 Flow Rate 3.0 04/23/25 04/23/25 04/23/25 04/23/25 11:45 11:50 12:00 12:30 Temp 99.3 Pulse 104 101 102 112 Resp B/P (MAP) 121/76 130/80 131/81 Pulse Ox 93 94 94 O2 Delivery Nasal Cannula N/Cannula Low lpm Nasal Cannula O2 Flow Rate 3.0 4.0 3.0 FiO2 36 04/23/25 16:08 Temp 98.1 Pulse 102 Resp 24 B/P (MAP) 147/99 Pulse Ox 94 O2 Delivery Nasal Cannula O2 Flow Rate 3.0 Intake & Output (last 24hrs) 04/22/25 04/22/25 04/23/25 15:00 23:00 07:00 Intake Total 1317.0 ml 1749.0 ml 1275.0 ml Output Total 300 ml 200 ml 500 ml Balance 1017.0 ml 1549.0 ml 775.0 ml LABS: Laboratory: Test 04/23/25 15:46 04/23/25 08:51 04/23/25 05:02 04/22/25 13:57 Range/Units Vancomycin Level Trough 7.1 #L 10.0-20.0 UG/ML Lactic Acid Level 1.8 0.8-2.5 mmol/L White Blood Count 27.6 H 4.8-10.8 K/uL Red Blood Count 4.64 4.50-6.20 MIL/uL Hemoglobin 10.6 L 14.0-18.0 g/dL Hematocrit 35.5 L 42-54 % Mean Corpuscular Volume 76.5 L 79-99 fL Mean Corpuscular Hemoglobin 22.8 L 27.0-33.0 pg Mean Corpuscular Hemoglobin Concent 29.9 L 32.0-36.0 g/dL Red Cell Distribution Width 18.6 H 11.0-15.5 % Platelet Count 240 130-400 K/uL Mean Platelet Volume 12.0 H 7.5-10.5 fL Immature Granulocyte % (Auto) 1.9 H 0-1 % Neutrophils (%) (Auto) 89.4 H 40.0-77.0 % Lymphocytes (%) (Auto) 2.9 L 21.0-51.0 % Monocytes (%) (Auto) 5.6 3.0-13.0 % Eosinophils (%) (Auto) 0.0 0.0-8.0 % Basophils (%) (Auto) 0.2 0.0-5.0 % Neutrophils # (Auto) 24.7 H 1.8-7.7 K/uL Lymphocytes # (Auto) 0.8 L 1.0-4.8 K/uL Monocytes # (Auto) 1.6 H 0.1-1.0 K/uL Eosinophils # (Auto) 0.01 0.00-0.70 K/uL Basophils # (Auto) 0.06 0.00-0.20 K/uL Absolute Immature Granulocyte (auto 0.52 0-1 K/uL Nucleated Red Blood Cells 0.0 0.0-0.19 % White Cell Morphology Comment See comments Sodium Level 142 136-145 mmol/L Potassium Level 4.4 3.5-5.1 mmol/L Chloride Level 106 101-111 mmol/L Carbon Dioxide Level 23 21-32 mmol/L Blood Urea Nitrogen 29 H 7-18 mg/dL Creatinine 1.2 0.5-1.3 mg/dL Glomerular Filtration Rate Calc 81 >90 mL/min Random Glucose 133 H 70-105 mg/dL Total Calcium 9.1 8.5-10.1 mg/dL Magnesium Level 2.00 1.80-2.40 mg/dL Total Bilirubin 1.7 #H 0.2-1.0 mg/dL Aspartate Amino Transf (AST/SGOT) 48 H 10-37 U/L Alanine Aminotransferase (ALT/SGPT) 42 # 12-78 U/L Alkaline Phosphatase 259 #H 50-136 U/L Total Protein 7.0 6.0-8.3 g/dL Albumin 2.1 L 3.5-5.0 g/dL Total Creatine Kinase 135 # 21-232 U/L Test 04/22/25 13:47 04/22/25 12:49 04/22/25 04:45 Range/Units Blood Gas Specimen Type Arterial Arterial Blood pH 7.386 7.350-7.450 Arterial Blood Partial Pressure CO2 39 35-48 mmHg Arterial Blood Partial Pressure O2 67.1 L 83.0-108.0 mmHg Arterial Blood HCO3 23.0 21.0-28.0 mmol/L Arterial Blood Oxygen Saturation 92.0 L 94.0-98.0 % Arterial Blood Base Excess -1.7 -2.0-3.0 mmol/L Hemoglobin (Blood Gas) 12.2 L 13.5-17.5 g/dL Sodium (Blood Gas) 142 136-145 MMOL/L Bedside Potassium (Blood Gas) 4.1 3.4-4.5 MMOL/L Bedside Chloride (Blood Gas) 105 98-107 MMOL/L Bedside Glucose (Blood Gas) 120 H 65-95 MG/DL Bedside Ionized Calcium (Blood Gas) 1.21 1.15-1.33 MMOL/L Bedside Lactic Acid (Blood Gas) 1.50 H 0.36-0.75 MMOL/L Blood Gas Temperature 37.0 35.5-37.0 CELSIUS Blood Gas Flow-by 4.00 0.00-15.00 L/min Blood Gas Vent Mode NC ROOM AIR FiO2 36.0 % Blood Gas Specimen Comment RR RN ENRIQUE D-Dimer Quantitative (PE/DVT) > 27091 *H 0-500 ng/mL Group A Streptococcus Rapid negative NEGATIVE DIAGNOSTICS / RADIOLOGY: PATIENT: MARTY BARRON ACCT: [id number] LOC[facility] U: [id number] AGE/SX: 35/M ROOM: 207 RE04/19/[address]: TITA PETERSON MD : 1990 BED: 1 DIS: STATUS: ADM IN TLOC: SPEC: [id number] CHRYSTAL: 04/21/25 STATUS: COMP REQ: [id number] RECD: 04/21/25 [facility] DR: KEN[facility] SOURCE: BLOOD ENTR: 04/21/25 [facility] DR: TITA PETERSON MD [facility]: BLOOD MARY LEONARD VISHWAS B MD ORDERED: AERO ID & SENS Procedure Result Paulina Date-Time AEROBIC ID & SENSITIVITIES Final 04/23/25-07 [facility] DESCRIPTION: DAY 1: GRAM POSITIVE COCCI IN CLUSTERS COAGULASE NEGATIVE STAPHYLOCOCCUS AEROBIC BOTTLE IDENTIFICATION AND SENSITIVITY TO FOLLOW STAPHYLOCOCCUS EPIDERMIDIS STA EPIDER M.I.C. RX --------- ---- CLINDAMYCIN >2 R ERYTHROMYCIN >4 R GENTAMICIN <=4 S VANCOMYCIN 1 S OXACILLIN GLENN >2 R RIFAMPIN <=1 S TETRACYCLINE 8 I TRIMETHOPRIM/SUFLAMETHOXAZOLE <=0.5/9.5 S ASSESSMENT: Hypoxic respiratory failure, requiring oxygen support. Staphylococcus epidermidis bacteremia, which is a contaminant. Leukocytosis. Right knee osteoarthritis. Bilateral pulmonary nodules consistent with metastatic disease. Small-bowel obstruction. Acute renal failure, improving. Morbid obesity. Recent Colon mass with colon resection and colostomy creation 3 months ago. PLAN: Continue cefepime. Continue metronidazole. NG tube to low intermittent suction. Continue oxygen support. Pending Oncology evaluation. Continue GI prophylaxis. Continue critical care support. Continue pain management. We will follow up on the final culture results. Avoid nephrotoxic medications. This case was reviewed and discussed with my supervising physician Dr. Richards and the above assessment and plan was formulated and agreed upon. ATTESTATION BY PHYSICIAN I have seen and examined the patient. I reviewed the documentation, medical decision making, and treatment plan as noted by the mid-level provider above. I agree with the findings and plan of care. JULIANNA RICHARDS MD, [facility] Apr 23, 2025 18:02
[2025-04-24] VITALS (9 sets, daily range): BP systolic 135–155; BP diastolic 60–115; PULSE 74–105; RESP 20–25; TEMP 98.1–98.8; O2SAT 92–96
[2025-04-24] MEDS: PROMETHAZINE HCL 25 MG/ML 1ML AMPULE IM ONE (00:59)
[2025-04-24 03:42] LABS: IMMATURE GRANULOCYTE ABSOLUTE 0.20 K/uL (0-1); NUCLEATED RED BLOOD CELLS 0.0 % (0.0-0.19); PLATELET COUNT (AUTO) 235 K/uL (130-400); RED BLOOD CELL COUNT(AUTO) 4.34 MIL/uL (4.50-6.20); RED CELL DISTRIBUTION WIDTH 18.2 % (11.0-15.5); WHITE BLOOD COUNT (AUTO) 21.3 K/uL (4.8-10.8)
[2025-04-24 04:19] LABS: ASPARTATE AMINOTRANSFERASE 31.0 U/L (10-37); CREATININE 0.9 mg/dL (0.5-1.3); GLOMERULAR FILTR. RATE CALC 114.0 mL/min (>90); GLUCOSE,RANDOM 129.0 mg/dL (70-105); SODIUM SERUM 146.0 mmol/L (136-145); TOTAL PROTEIN, SERUM 6.7 g/dL (6.0-8.3)
--- NOTE | 2025-04-24 04:23 | CONS ---
REFERRING PHYSICIAN: Dr. Hernandez. REASON FOR CONSULTATION: Renal failure. HISTORY OF PRESENT ILLNESS: A 35-year-old male with previous history of renal dysfunction. The patient presented to the hospital with complaints of knee pain. The patient's workup revealed significant osteoarthritis. The patient's CT scan of the abdomen revealed possible metastatic disease. The patient is to be seen by Oncology. The patient has had acute renal failure in the hospital. He was started on IV hydration and currently did stabilize overnight. The patient is being seen in consultation for all of the above. PAST MEDICAL HISTORY: Sleep apnea, obesity. PAST SURGICAL HISTORY: He has a previous history of colon resection. SOCIAL HISTORY: He lives independently. No tobacco use. FAMILY HISTORY: There is no renal disease in the family. REVIEW OF SYSTEMS: GENERAL: He is feeling weak and tired. HEENT: No change in vision. No change in hearing. CARDIOVASCULAR: There is no current chest pain or palpitations. PULMONARY: No shortness of breath. GASTROINTESTINAL: As described above. MUSCULOSKELETAL: Complains of weakness. NEUROLOGIC: No seizures or focal deficits. PSYCHIATRIC: No history of hallucinations or psychosis. ENDOCRINE: No history of thyroid disease. HEMATOLOGIC: History of anemia. PHYSICAL EXAMINATION: VITAL SIGNS: Blood pressure is 129/75, pulse in the 100s, afebrile. GENERAL: Chronically ill obese young male laying in bed on the medical floor. HEENT: Head is atraumatic. Pupils are equal, round, and reactive to light. Oropharynx is without exudate. Nares are clear. NECK: There is no JVP. There is no thyromegaly. No mass. CARDIOVASCULAR: Regular. There is no S3 or S4 gallop. LUNGS: Coarse with equal thoracic movement. ABDOMEN: Soft, nontender, nondistended. He is obese. EXTREMITIES: Reveal no clubbing, cyanosis. NEUROLOGIC: He is awake. He is alert. He is oriented. SKIN: Skin reveals no rash, no dyspnea. BACK: No CVA tenderness. No back deformities. LABORATORY DATA: Sodium 142, potassium 4.4, BUN 29, creatinine 1.2. Hemoglobin 10, hematocrit 35, white blood cell count 27,000. IMPRESSION: * [id number] renal failure. * Metastatic disease. * Hypotension. * Anemia. PLAN: The patient's CT scan of the abdomen is noted. The patient is to be evaluated by Oncology. The patient started on IV hydration and creatinine has greatly improved overnight. We will continue to monitor the chemistries closely. The patient does remain on the broad spectrum IV antibiotics. Cultures are all pending. The patient's family at the bedside. Multiple questions were all answered. TID: [id number] RECEIPT: [id number]
[2025-04-24 04:47] LABS: UREA NITROGEN, BLOOD 18.0 mg/dL (7-18)
--- NOTE | 2025-04-24 08:45 | NUR ---
Handoff report given to Flakita PATE. Patient being transferred to [address] Johnson called and notified of new consult. Per MD, he will see patient.
--- NOTE | 2025-04-24 10:44 | PN ---
[facility] PROGRESS NOTE Date of Service: Apr 24, 2025 Time of Service: 10:40 SUBJECTIVE: 04/20 the patient has been seen and examined at bedside, case discussed with the RN, no acute events overnight, the time of my visit, the patient is awake, following commands, blood pressure 140/90, afebrile, saturating normal on room air. The patient is morbidly obese, he uses a CPAP at home, currently CPAP at bedside during my visit. WBC 14.0, hemoglobin 10.4, hematocrit 34.8, platelet count of 305. CMP shows sodium 141, potassium 3.5, BUN 70, creatinine 0.9, iron level of 25. X-ray of the knee showing moderate to severe three, power mental right knee osteoarthritis, predominantly in the lateral compartment, with small joint effusion. No acute fracture. Orthopedic physician consultation requested, we will follow input and recommendation. MRI of the right knee requested, however due to morbid obesity, might not be able to do it. Discussed with the mother is at the bedside, all questions answered, in agreement. 04/21 patient has been seen and examined at bedside, case discussed with the RN, no acute events overnight, the time my visit he is awake, following commands, admits mild dry nonproductive cough, spiked fever 102.6. Denied chest pain, shortness shortness for breath, no nausea, no vomiting, no abdominal discomfort. The patient has a colostomy bag, on examination, liquid stool noted. WBC slowly trending down at 12.7, hemoglobin stable 11.6. Magnesium 1.7. Added doxycycline 100 mg IV q.12 hours. Follow serology to include SARS antigen, influenza and rapid strep. We will give magnesium sulfate 2 g IV x1. We will order GI stool panel. Patient is scheduled for MRI to the right knee today, continue lidocaine patch, discussed with the orthopedic physician today, we will follow input and recommendation. 04/22 patient is seen and examined at bedside, discussed with the RN. Patient currently feels nauseated. He admits mild discomfort to the right lower quadrant. BP 135/77, mildly tachycardic at 108, saturating normal on room air. Maximum temperature last 24 hours 102.7. CBC shows a hemoglobin of 11.6, hematocrit 35.7, platelet count of 276, with a platelet count of 23.8. Creatinine 2.1. MRI of the right knee shows tricompartmental osteoarthritis with osteophytosis and diffuse cartilage loss, medial and lateral meniscal with complex degenerative tear involving posterior horns and bodies, meniscal tear severity grade 3, full-thickness chondral defect of the lateral femoral condyle, with a underlying subchondral edema, small reactive joint effusion with mild synovitis. We will upgraded the patient to the PCU, LR at 50 mL/hours, follow repeat CBC, CMP and magnesium level. Continue Rocephin and doxycycline IV. We will order a CT of the abdomen and pelvis without contrast to rule out intra- abdominal acute pathology. Orthopedic input noted and appreciated, patient with bad arthritis, we will finally benefit from knee replacement, however considering his morbid obesity, it is not indicated right now. Recommended co nservative approach. Mother at bedside, all questions answered, updated, in agreement with plan of care. 04/23 patient is seen and examined at bedside, discussed with the RN, no acute events overnight, patient upgraded to the ICU yesterday due to sepsis and developing small bowel obstruction. Today the patient is awake, following commands, he is NPO, NG tube to intermittent suction, BP 120/76, heart rate of 111, saturating 96% 3 L nasal cannula, temperature 98.4. WBC of 27.6, hemoglobin 10.6, hematocrit 35.5, platelet count 240, creatinine improved to 1.2. Septic workup with blood culture positive for Staphylococcus epidermidis. Echocardiogram and chest x-ray pending. Patient will remain admitted to the ICU, continue broad-spectrum IV antibiotics, we will follow surgical input recommendation. Continue to follow critical Care and ID input and recommendation. And we will update the mother regarding results of CT of the abdomen pelvis and further plan of care when she is present in the room. CT abdomen and pelvis reviewed, as follows: * Patient is undergoing mass evaluation. * Interval progression since 22 April 2025 with a new right upper lobe spiculated infiltrative mass measuring 5.4 ??? 4.6 cm infiltrating mediastinal pleura and abutting the right main pulmonary artery. * Bulky mediastinal lymphadenopathy with largest node measuring 4 cm, involving right paratracheal, prevascular, precarinal, and subcarinal stations, increased since prior study. * Multiple bilateral spiculated pulmonary nodules (1???2.5 cm), consistent with metastatic disease progression. * Bilateral marked diffuse adrenal enlargement (Right 5.9 ??? 3.6 cm, Left 7.6 ??? 5.4 cm), likely metastatic or hyperplastic. 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 * Degenerative thoracolumbar spondylosis with L4 vertebral body wedging (30???40% height loss), unchanged. * Comparison is made with the exam dated 22 April 2025. Overall findings indicate worsening metastatic disease with new primary and gloria lesions and mechanical bowel obstruction requiring clinical and surgical correlation. Recommendations include oncologic evaluation and PET-CT staging, alongside urgent surgical consultation for bowel obstruction. 04/24 patient is seen and examined at bedside, discussed with the RN, no acute events overnight, patient downgraded from the ICU to the PCU, he remains NPO, NG tube connected to intermittent suction, output in the last 12 hours 200 mL. BP 146/150, heart rate of 101, afebrile, saturating 96-97% on nasal cannula. CBC shows a hemoglobin of 9.9, hematocrit 33.5, platelet count of 235, with WBC of 21.3. CMP with sodium 146, potassium 3.8, BUN of 18, creatinine 0.9, magnesium 1.8. Blood culture 04/21/2025 positive for Staphylococcus epidermidis. Repeat blood cultures 04/23/2025 no growth after 24 hours echocardiogram 04/23/2025 LVEF 50-55%, no left ventricle thrombus, no intracardiac masses, no valvular vegetations. Today chest x-ray pending. Patient will remain admitted to the PCU, NPO, intermittent suction, continue to follow surgical input recommendation, continue broad-spectrum IV antibiotics, follow WBC in a.m.. Follow KUB. I HAVE CONTACTED THE DEPARTMENT OF MEDICAL RECORDS ARTERIOGRAM [facility], SPOKE WITH ZENA AT PHONE NUMBER [phone], I HAVE REQUESTED MEDICAL RECORDS. WE WILL FOLLOW UP. REVIEW OF SYSTEMS CONSTITUTIONAL: Denies fevers, chills, or night sweats. No unintentional weight loss reported. NEUROLOGICAL: Denies headache, amaurosis fugax, motor weakness, sensory deficit, vertigo/spinning sensation, gait abnormalities, or tremors. ENT: No hearing loss, otalgia, otorrhea, rhinitis, rhinorrhea, hoarseness, or sore throat. CARDIOVASCULAR: Denies any exertional angina, dyspnea on exertion, orthopnea, paroxysmal nocturnal dyspnea, palpitations, life-threatening arrhythmias, claudication. PULMONARY: Denies any shortness of breath, cough, phlegm/sputum, hemoptysis, pleuritic chest pain. SLEEP: Denies morning headaches, daytime somnolence or napping. Denies difficulty falling asleep, staying asleep, waking from sleep. Denies knowledge of snoring. GASTROINTESTINAL: Denies any type of dysphagia to either liquids or solids. Denies nausea, vomiting, pyrosis, early satiety, abdominal pain, diarrhea, constipation, or changes in stool consistency or caliber. Denies coffee-ground emesis, hematemesis, hematochezia, or melanotic stools. GENITOURINARY: Denies frequency, urgency, nocturia, hematuria or incontinence (Storage/Irritative symptoms.) Low urinary stream, straining to void, urinary intermittency or hesitancy, splitting of the voiding stream, terminal dribbling. ENDOCRINOLOGIC: Denies polyuria, polydipsia, polyphagia or heat/cold intolerances. HEMATOLOGIC: Denies thrombophilia/previous clots, or coagulopathy/bleeding disorders. ONCOLOGIC: Denies personal history of malignancy. DERMATOLOGIC: Denies rashes or pruritus. PSYCHIATRIC: Denies any suicidal or homicidal ideation. Denies hallucinations. PHYSICAL EXAM GENERAL APPEARANCE: Patient awake, following commands, NG tube to intermittent suction. NEUROLOGICAL: Cranial nerves II-XII grossly intact. Motor is 5/5 in bilateral upper and lower extremities proximal to distal. No sensory deficits. HEENT: Face is symmetric. Pupils are equal and reactive. Extraocular movements are intact. NECK: Supple. No JVD. No thyromegaly. No submental, submandibular, pre- /postauricular, occipital or supraclavicular lymphadenopathy. CHEST: Normal chest expansion. No Telemetry. LUNGS: Absence of any rales, rhonchi or any wheezing. CARDIOVASCULAR: Regular. S1 and S2 normal. No appreciable rubs, murmurs or gallops. ABDOMEN: Liquid output colostomy bag noted. : Deferred. No Doe. EXTREMITIES: Mild swelling to the right knee area, lidocaine patch in place. SKIN: No skin breakdown. Vital Signs (last 8hr) Date Time Temp Pulse Resp B/P (MAP) Pulse Ox O2 Delivery O2 Flow Rate FiO2 04/24/25 06:28 101 20 N/Cannula Low lpm 4.0 36 LABS: Laboratory: Test 04/24/25 03:26 04/23/25 15:46 04/23/25 05:02 04/22/25 13:57 Range/Units White Blood Count 21.3 H 4.8-10.8 K/uL Red Blood Count 4.34 L 4.50-6.20 MIL/uL Hemoglobin 9.9 L 14.0-18.0 g/dL Hematocrit 33.5 L 42-54 % Mean Corpuscular Volume 77.2 L 79-99 fL Mean Corpuscular Hemoglobin 22.8 L 27.0-33.0 pg Mean Corpuscular Hemoglobin Concent 29.6 L 32.0-36.0 g/dL Red Cell Distribution Width 18.2 H 11.0-15.5 % Platelet Count 235 130-400 K/uL Mean Platelet Volume 11.1 H 7.5-10.5 fL Immature Granulocyte % (Auto) 0.9 0-1 % Neutrophils (%) (Auto) 88.9 H 40.0-77.0 % Lymphocytes (%) (Auto) 3.6 L 21.0-51.0 % Monocytes (%) (Auto) 6.2 3.0-13.0 % Eosinophils (%) (Auto) 0.2 0.0-8.0 % Basophils (%) (Auto) 0.2 0.0-5.0 % Neutrophils # (Auto) 18.9 H 1.8-7.7 K/uL Lymphocytes # (Auto) 0.8 L 1.0-4.8 K/uL Monocytes # (Auto) 1.3 H 0.1-1.0 K/uL Eosinophils # (Auto) 0.04 0.00-0.70 K/uL Basophils # (Auto) 0.05 0.00-0.20 K/uL Absolute Immature Granulocyte (auto 0.20 0-1 K/uL Nucleated Red Blood Cells 0.0 0.0-0.19 % Sodium Level 146 H 136-145 mmol/L Potassium Level 3.9 3.5-5.1 mmol/L Chloride Level 108 101-111 mmol/L Carbon Dioxide Level 28 21-32 mmol/L Blood Urea Nitrogen 18 7-18 mg/dL Creatinine 0.9 0.5-1.3 mg/dL Glomerular Filtration Rate Calc 114 >90 mL/min Random Glucose 129 H 70-105 mg/dL Lactic Acid Level 1.8 0.8-2.5 mmol/L Total Calcium 8.5 8.5-10.1 mg/dL Magnesium Level 1.80 1.80-2.40 mg/dL Total Bilirubin 1.6 H 0.2-1.0 mg/dL Aspartate Amino Transf (AST/SGOT) 31 10-37 U/L Alanine Aminotransferase (ALT/SGPT) 29 # 12-78 U/L Alkaline Phosphatase 237 H 50-136 U/L Total Protein 6.7 6.0-8.3 g/dL Albumin 1.8 L 3.5-5.0 g/dL Vancomycin Level Trough 7.1 #L 10.0-20.0 UG/ML White Cell Morphology Comment See comments Total Creatine Kinase 135 # 21-232 U/L Test 04/22/25 13:47 04/22/25 12:49 Range/Units Blood Gas Specimen Type Arterial Arterial Blood pH 7.386 7.350-7.450 Arterial Blood Partial Pressure CO2 39 35-48 mmHg Arterial Blood Partial Pressure O2 67.1 L 83.0-108.0 mmHg Arterial Blood HCO3 23.0 21.0-28.0 mmol/L Arterial Blood Oxygen Saturation 92.0 L 94.0-98.0 % Arterial Blood Base Excess -1.7 -2.0-3.0 mmol/L Hemoglobin (Blood Gas) 12.2 L 13.5-17.5 g/dL Sodium (Blood Gas) 142 136-145 MMOL/L Bedside Potassium (Blood Gas) 4.1 3.4-4.5 MMOL/L Bedside Chloride (Blood Gas) 105 98-107 MMOL/L Bedside Glucose (Blood Gas) 120 H 65-95 MG/DL Bedside Ionized Calcium (Blood Gas) 1.21 1.15-1.33 MMOL/L Bedside Lactic Acid (Blood Gas) 1.50 H 0.36-0.75 MMOL/L Blood Gas Temperature 37.0 35.5-37.0 CELSIUS Blood Gas Flow-by 4.00 0.00-15.00 L/min Blood Gas Vent Mode NC ROOM AIR FiO2 36.0 % Blood Gas Specimen Comment RR RN ENRIQUE D-Dimer Quantitative (PE/DVT) > 04434 *H 0-500 ng/mL Current Medications Medications (Trade) Dose Ordered Sig/Checo Route PRN Reason Start Time Stop Time Status Last Admin Dose Admin Acetaminophen (TYLenol 325MG TAB) 650 mg Q6H PRN PO FEVER/pain 1-3 04/19/25 22:00 05/19/25 21:59 04/21/25 02:20 650 MG Cefepime HCl (MAXipime 2 gm vial) 2 gm Q8H IVPB 04/22/25 13:00 05/02/25 12:59 04/24/25 05:15 2 GM Ceftriaxone Sodium (ROCEphine 1G INJ) 1 gm Q24H IVPB 04/20/25 10:00 04/22/25 12:41 DC 04/22/25 10:53 1 GM Doxycycline Hyclate 250 ml @ 125 mls/hr Q12H IV 04/21/25 08:30 04/22/25 12:41 DC 04/22/25 08:14 125 MLS/HR Enoxaparin Sodium (Lovenox) 40 mg DAILY SQ 04/20/25 09:00 04/22/25 20:00 DC 04/22/25 08:14 40 MG Enoxaparin Sodium (Lovenox) 40 mg Q12H SQ 04/22/25 21:00 05/20/25 08:59 04/24/25 10:16 40 MG Famotidine (Pepcid 20mg Tab) 20 mg DAILY PO 04/20/25 09:00 05/20/25 08:59 04/24/25 10:16 20 MG Hydralazine HCl (APRESOLine 20MG INJ) 5 mg Q6H PRN IV For:SBP above 160;DBP above 90 04/20/25 16:00 05/20/25 15:59 Hydralazine HCl (APRESOLine 20MG INJ) 10 mg Q6H PRN IV For:SBP above 160;DBP above 90 04/19/25 22:00 04/20/25 10:52 DC Hydromorphone HCl (DiLAUDid 0.5MG INJ) 0.5 mg Q4H PRN IVP SEVERE PAIN (7-10) 04/22/25 20:00 04/27/25 19:59 Ketorolac Tromethamine (toRADol) 15 mg Q6H PRN IV MODERATE PAIN (4-6) 04/20/25 11:00 04/22/25 19:58 DC 04/20/25 22:08 15 MG Labetalol HCl (TRANdate 20MG SYG) 10 mg Q6H PRN IV SUSTAINED HR >120 04/23/25 00:00 05/23/25 00:00 Lactated Ringer's 1,000 ml @ 75 mls/hr [id number] IV 04/21/25 12:30 05/21/25 12:29 04/24/25 02:58 75 MLS/HR Lactated Ringer's 1,000 ml @ 100 mls/hr Q10H IV 04/19/25 22:00 04/20/25 10:52 DC 04/21/25 12:40 100 MLS/HR Lactulose (Constulose 20gm/ 30ml Udcup) 20 gm BID PRN PO CONSTIPATION 04/19/25 22:00 05/19/25 21:59 Lidocaine (Lidocaine Patch 4%) 1 each DAILY TP 04/21/25 09:00 05/21/25 08:59 04/24/25 10:16 1 EACH Magnesium Sulfate 50 ml @ 0 mls/hr PROTOCOL IV 04/21/25 08:30 05/21/25 08:29 04/24/25 06:11 25 MLS/HR Metronidazole/ Sodium Chloride 100 ml @ 100 mls/hr Q8H6 IVPB 04/22/25 14:00 05/02/25 13:59 04/24/25 06:11 100 MLS/HR Morphine Sulfate (morPHINE 4MG SYG) 4 mg Q4H PRN IVP SEVERE PAIN (7-10) 04/19/25 22:00 04/20/25 10:52 DC Ondansetron HCl (zoFRAN 4MG INJ) 4 mg Q6H PRN IV NAUSEA/VOMITING 04/19/25 22:00 05/19/25 21:59 04/23/25 19:54 4 MG Promethazine HCl (Phenergan) 12.5 mg Q8H5 PRN IM NAUSEA/VOMITING 04/22/25 12:30 05/22/25 12:29 04/22/25 12:25 12.5 MG Sodium Chloride 500 ml @ 0 mls/hr Q0M STAT IV 04/22/25 13:17 04/22/25 13:22 DC 04/22/25 14:39 600 MLS/HR Vancomycin HCl (Vancomycin Protocol) 1 each AD IV 04/22/25 15:00 04/23/25 22:23 DC DIAGNOSTICS / RADIOLOGY: [ ] ASSESSMENT: Right knee osteoarthritis, POA Intractable knee pain, POA Obesity, POA PLAN: patient is seen and examined at bedside, discussed with the RN, no acute events overnight, patient downgraded from the ICU to the PCU, he remains NPO, NG tube connected to intermittent suction, output in the last 12 hours 200 mL. BP 146/150, heart rate of 101, afebrile, saturating 96-97% on nasal cannula. CBC shows a hemoglobin of 9.9, hematocrit 33.5, platelet count of 235, with WBC of 21.3. CMP with sodium 146, potassium 3.8, BUN of 18, creatinine 0.9, magnesium 1.8. Blood culture 04/21/2025 positive for Staphylococcus epidermidis. Repeat blood cultures 04/23/2025 no growth after 24 hours echocardiogram 04/23/2025 LVEF 50-55%, no left ventricle thrombus, no intracardiac masses, no valvular vegetations. Today chest x-ray pending. Patient will remain admitted to the PCU, NPO, intermittent suction, continue to follow surgical input recommendation, continue broad-spectrum IV antibiotics, follow WBC in a.m.. Follow KUB. I HAVE CONTACTED THE DEPARTMENT OF MEDICAL RECORDS ARTERIOGRAM [facility], SPOKE WITH ZENA AT PHONE NUMBER [phone], I HAVE REQUESTED MEDICAL RECORDS. WE WILL FOLLOW UP. NEURO: Minimize central acting medications as possible. Fall Precautions. Well lighted room through the day and minimize interruptions through the night to prevent acute delirium. PULMONARY: Supplemental 02 as needed BiPAP as necessary, for respiratory distress Titrate Fio2 to keep Spo2 > or = 90% DuoNebs and CPT as needed IS hourly while awake for pulmonary hygiene prn Out of bed to chair as tolerated Maintain aspiration precautions at all times CARDIOVASCULAR: Follow hemodynamics. Vital signs per facility protocol GI & NUTRITION: Continue nutritional support Aspirations precautions Prokinetic agents and laxatives as needed KIDNEYS & ELECTROLYTES: Strict monitoring of intake and output Daily weights Avoid nephrotoxic agents Monitor electrolytes and replace as needed Goal urine output of 30mL/hr or 0.5mL/kg/hr Medications to be dosed according to renal function. Avoid contrast if possible ENDOCRINE: Maintain blood glucose between 100-180 at all times. Insulin sliding scale for blood glucose management Hypoglycemia and hyperglycemia protocol in place INFECTIOUS DISEASE: Trend temperature, WBC and procalcitonin level Follow cultures, deescalate antibiotics as soon as possible. Panculture if new onset fever HEMATOLOGY & COAGULATION: Monitor H&H. Keep Hgb > 7 Transfuse 1 unit of PRBC for Hgb < 7 Transfuse 1 pack of platelets of platelets < 20, 000 Watch for any signs and symptoms of bleeding SKIN: Pressure ulcer prevention per facility protocol Specialty mattress as needed ORTHO/REHAB Continue PT/OT PRN: MEDICATIONS Tylenol 650 mg po every 4 hrs for fever zofran 4 mg IV every 6 hrs for n/v Hydralazine 5 mg IV every 4 hrs systolic pressure > 160 bowel regiment: lactulose 20 gm PO BID PRN constipation Supportive measures: Continue GI and DVT prophylaxis Disposition: Pending improvement in clinical condition All questions answered time spent: > 35 min TITA PETERSON MD Apr 24, 2025 10:44
--- NOTE | 2025-04-24 12:32 | HMCIMG ---
EXAM: CR Abdomen, 2 View. CLINICAL HISTORY: small bowel obstruction COMPARISON: CT dated April 22, 2025 FINDINGS: Enteric tube terminates within the stomach. Markedly dilated air-filled loops of small bowel that measure up to 5.6 cm reflecting a persistent distal small bowel obstruction. No pneumoperitoneum, pneumatosis intestinalis, or portal venous gas. IMPRESSION: 1. Markedly dilated small bowel loops up to 5.6 cm, consistent with distal small bowel obstruction. 2. No pneumoperitoneum, pneumatosis intestinalis, or portal venous gas. /[place]
--- NOTE | 2025-04-24 13:04 | NUR ---
Dr. Johnson present, I requested medical records from Dr. Castro's office
--- NOTE | 2025-04-24 18:48 | PN ---
[facility] PROGRESS NOTE Date Patient Seen: Apr 24, 2025 Time of Visit: 18:32 Supervising Physician:Sonny Jha MD Primary Care Physician: Justin Marcus Outpatient Specialists: [ ] Inpatient Consults: Dr Nguyen, Dr Abad, Dr Henry, DR Johnson PROBLEM LIST: Severe sepsis with MODS, improving Leukocytosis Gram-positive cocci bacteremia Chronic microcytic and hypochromic anemia New right upper lobe spiculated infiltrative mass measuring 5.4 x 4.6 cm infiltrating mediastinal pleura and albumin in the right main pulmonary artery Bulky mediastinal lymphadenopathy with the largest node measuring 4 cm involving the right paratracheal, prevascular, and subcarinal stations Multiple bilateral spiculated pulmonary nodules consistent with metastatic disease progression Bilateral marked diffuse adrenal enlargement likely metastatic or hyperplastic Left iliac fossa 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 Patient assessed at bedside. Denies chest pain, palpitation, or shortness for breath. Hemodynamically stable. Currently on 4 L via nasal cannula saturating 99%. He continues with LR at 75ml/hr. Chest XR with increased vascular congestion. lasix 20mg IVP q8hrs x2 ordered will reeval in am. No major overnight events reported. Pending Oncology for further recommendation. awaiting regional hospital records. REVIEW OF SYSTEMS: 12 point ROS reviewed with patient. Pertinent positives mentioned above. Otherwise negative. PHYSICAL EXAM: GENERAL: alert, weak, awake oriented x 3 HEENT: EOMI, Sclera non icteric, moist mucosa NC NECK: Supple, no JVD, trachea midline LUNGS: Diminished breath sounds bilaterally. No wheezes HEART: controlled rate and rhythm. Normal S1 and S2, without murmurs ABD: morbidly obese Abdomen soft, nontender. Bowel sounds hypoactive EXT: No clubbing cyanosis or edema NEURO: Alert and oriented to person, follows commands Vital Signs (last 8hr) Date Time Temp Pulse Resp B/P (MAP) Pulse Ox O2 Delivery O2 Flow Rate FiO2 04/24/25 16:00 98.4 98 20 146/65 99 Nasal Cannula 4.0 36 04/24/25 12:00 98.8 96 20 155/60 97 Nasal Cannula 4.0 36 LABS: Hematology Labs: Test 04/24/25 03:26 04/23/25 05:02 Range/Units White Blood Count 21.3 H 4.8-10.8 K/uL Red Blood Count 4.34 L 4.50-6.20 MIL/uL Hemoglobin 9.9 L 14.0-18.0 g/dL Hematocrit 33.5 L 42-54 % Mean Corpuscular Volume 77.2 L 79-99 fL Mean Corpuscular Hemoglobin 22.8 L 27.0-33.0 pg Mean Corpuscular Hemoglobin Concent 29.6 L 32.0-36.0 g/dL Red Cell Distribution Width 18.2 H 11.0-15.5 % Platelet Count 235 130-400 K/uL Mean Platelet Volume 11.1 H 7.5-10.5 fL Immature Granulocyte % (Auto) 0.9 0-1 % Neutrophils (%) (Auto) 88.9 H 40.0-77.0 % Lymphocytes (%) (Auto) 3.6 L 21.0-51.0 % Monocytes (%) (Auto) 6.2 3.0-13.0 % Eosinophils (%) (Auto) 0.2 0.0-8.0 % Basophils (%) (Auto) 0.2 0.0-5.0 % Neutrophils # (Auto) 18.9 H 1.8-7.7 K/uL Lymphocytes # (Auto) 0.8 L 1.0-4.8 K/uL Monocytes # (Auto) 1.3 H 0.1-1.0 K/uL Eosinophils # (Auto) 0.04 0.00-0.70 K/uL Basophils # (Auto) 0.05 0.00-0.20 K/uL Absolute Immature Granulocyte (auto 0.20 0-1 K/uL Nucleated Red Blood Cells 0.0 0.0-0.19 % White Cell Morphology Comment See comments Chemistry Labs: Test 04/24/25 03:26 04/23/25 05:02 Range/Units Sodium Level 146 H 136-145 mmol/L Potassium Level 3.9 3.5-5.1 mmol/L Chloride Level 108 101-111 mmol/L Carbon Dioxide Level 28 21-32 mmol/L Blood Urea Nitrogen 18 7-18 mg/dL Creatinine 0.9 0.5-1.3 mg/dL Glomerular Filtration Rate Calc 114 >90 mL/min Random Glucose 129 H 70-105 mg/dL Lactic Acid Level 1.8 0.8-2.5 mmol/L Total Calcium 8.5 8.5-10.1 mg/dL Magnesium Level 1.80 1.80-2.40 mg/dL Total Bilirubin 1.6 H 0.2-1.0 mg/dL Aspartate Amino Transf (AST/SGOT) 31 10-37 U/L Alanine Aminotransferase (ALT/SGPT) 29 # 12-78 U/L Alkaline Phosphatase 237 H 50-136 U/L Total Protein 6.7 6.0-8.3 g/dL Albumin 1.8 L 3.5-5.0 g/dL Carcinoembryonic Antigen 6714.0 H 0.0-4.7 ng/mL DIAGNOSTICS / RADIOLOGY RESULTS: [ ] PLAN recommend oncology consult may downgrade to medical floor maintain sats above 92 % continue PUD and DVT PPX consider TPN in the next few days if no means of nutrition follow general surgery recommendations pending medical records from [facility] NEURO: Minimize central acting medications as possible. Maintain fall precautions, adequate lighting during the day PULMONARY: Supplemental 02 as needed. Maintain aspiration precautions at all times CARDIOVASCULAR: Follow hemodynamics. Vital signs per facility protocol GI & NUTRITION: Continue with nutritional support. Continue stool softeners and laxatives as needed. KIDNEYS & ELECTROLYTES: Strict monitoring of intake, output and overall fluid balance. Avoid nephrotoxic medications to the extent possible. Medications to be dosed according to renal function. Monitor electrolytes and replace as needed ENDOCRINE: Maintain blood glucose between 100-180 at all times. Hypoglycemia protocol in place INFECTIOUS DISEASE: Trend temperature, WBC and procalcitonin level Follow cultures, deescalate antibiotics as soon as possible. Panculture if new onset fever ONCOLOGY/HEMATOLOGY/COAGULATION: Monitor for s/s of bleeding Monitor hemoglobin, coagulation studies as needed SKIN: Pressure ulcer prevention per facility protocol Specialty mattress ORTHO/REHAB: Continue PT/OT Prophylaxis: Continue GI and DVT prophylaxis Code Status: Full Resuscitation Disposition: TBD Other: Total patient care time exceeds 35 minutes excluding all procedures. ATTESTATION BY PHYSICIAN I have evaluated the patient chart, medical records, and spoke with appropriate staff. I reviewed the documentation, medical decision making, and treatment plan as noted by the mid-level provider above. I agree with the findings and plan of care. Sonny Jha MD, [facility] Apr 24, 2025 18:48
--- NOTE | 2025-04-24 20:24 | PN ---
INFECTIOUS DISEASE PROGRESS NOTE Date of Service: Apr 24, 2025 SUBJECTIVE: This is a 35-year-old male patient admitted for right knee pain who was seen and examined at bedside in room 223. Patient is awake, alert and oriented x3. Patient on hypoxic respiratory failure and requiring oxygen support. Minimal improvement on the WBC to 21.3 this morning. Critical care on the case. One time dose of vancomycin was administered and continues on cefepime and metronidazole IV. The renal function improved with a BUN of 18 and creatinine of 0.9. The NG tube is still connected to low intermittent suction. Denying nausea or vomiting. Denying pain. . Oncologist has evaluated patient and per report plan is to do bone marrow biopsy sometime in the near future. Patient's mother at bedside and aware of current plan. PHYSICAL EXAM EYES: Anicteric. Pupils equal and reactive. HENT: No oral thrush seen, moist Oral mucosa. NG tube to low intermittent suction. NECK: Supple, no JVD or thyromegaly. LUNGS: Good air entry. No rales, no rhonchi. CARDIOVASCULAR: S1, S2 regular. No murmur heard. ABDOMEN: Abdomen is large but Soft, bowel sounds present. Abdominal scar and Left colostomy. CENTRAL NERVOUS SYSTEM: Awake, alert, oriented x 3. SKIN: No rashes, no swelling. LYMPHATICS: No peripheral lymphadenopathy. MUSCULOSKELETAL: Right knee pain. EXTREMITIES: No cyanosis or clubbing. BACK: No deformity, no pressure ulcer. GENITOURINARY: No dysuria or hematuria. Vital Sign (Last 12 Hours) 04/24/25 04/24/25 04/24/25 04/24/25 12:00 16:00 19:08 19:10 Temp 98.8 98.4 98.4 Pulse 96 98 103 105 Resp 20 20 20 20 B/P (MAP) 155/60 146/65 135/91 Pulse Ox 97 99 94 O2 Delivery Nasal Cannula Nasal Cannula Nasal Cannula N/Cannula Low lpm O2 Flow Rate 4.0 4.0 3.0 4.0 FiO2 36 36 36 Intake & Output (last 24hrs) 04/23/25 04/23/25 04/24/25 14:59 22:59 06:59 Intake Total 510.0 ml 780.0 ml Output Total 650 ml Balance 510.0 ml 130.0 ml LABS: Laboratory: Test 04/24/25 03:26 04/23/25 15:46 04/23/25 05:02 Range/Units White Blood Count 21.3 H 4.8-10.8 K/uL Red Blood Count 4.34 L 4.50-6.20 MIL/uL Hemoglobin 9.9 L 14.0-18.0 g/dL Hematocrit 33.5 L 42-54 % Mean Corpuscular Volume 77.2 L 79-99 fL Mean Corpuscular Hemoglobin 22.8 L 27.0-33.0 pg Mean Corpuscular Hemoglobin Concent 29.6 L 32.0-36.0 g/dL Red Cell Distribution Width 18.2 H 11.0-15.5 % Platelet Count 235 130-400 K/uL Mean Platelet Volume 11.1 H 7.5-10.5 fL Immature Granulocyte % (Auto) 0.9 0-1 % Neutrophils (%) (Auto) 88.9 H 40.0-77.0 % Lymphocytes (%) (Auto) 3.6 L 21.0-51.0 % Monocytes (%) (Auto) 6.2 3.0-13.0 % Eosinophils (%) (Auto) 0.2 0.0-8.0 % Basophils (%) (Auto) 0.2 0.0-5.0 % Neutrophils # (Auto) 18.9 H 1.8-7.7 K/uL Lymphocytes # (Auto) 0.8 L 1.0-4.8 K/uL Monocytes # (Auto) 1.3 H 0.1-1.0 K/uL Eosinophils # (Auto) 0.04 0.00-0.70 K/uL Basophils # (Auto) 0.05 0.00-0.20 K/uL Absolute Immature Granulocyte (auto 0.20 0-1 K/uL Nucleated Red Blood Cells 0.0 0.0-0.19 % Sodium Level 146 H 136-145 mmol/L Potassium Level 3.9 3.5-5.1 mmol/L Chloride Level 108 101-111 mmol/L Carbon Dioxide Level 28 21-32 mmol/L Blood Urea Nitrogen 18 7-18 mg/dL Creatinine 0.9 0.5-1.3 mg/dL Glomerular Filtration Rate Calc 114 >90 mL/min Random Glucose 129 H 70-105 mg/dL Lactic Acid Level 1.8 0.8-2.5 mmol/L Total Calcium 8.5 8.5-10.1 mg/dL Magnesium Level 1.80 1.80-2.40 mg/dL Total Bilirubin 1.6 H 0.2-1.0 mg/dL Aspartate Amino Transf (AST/SGOT) 31 10-37 U/L Alanine Aminotransferase (ALT/SGPT) 29 # 12-78 U/L Alkaline Phosphatase 237 H 50-136 U/L Total Protein 6.7 6.0-8.3 g/dL Albumin 1.8 L 3.5-5.0 g/dL Vancomycin Level Trough 7.1 #L 10.0-20.0 UG/ML White Cell Morphology Comment See comments Carcinoembryonic Antigen 6714.0 H 0.0-4.7 ng/mL DIAGNOSTICS / RADIOLOGY: PATIENT: MARTY BARRON ACCT: [id number] LOC: [facility] U: [id number] AGE/SX: 35/M ROOM: [facility] RE04/19/[address]: TITA PETERSON MD : 1990 BED: 1 DIS: STATUS: ADM IN TLOC: SPEC: [id number] CHRYSTAL: 04/21/25 STATUS: RES REQ: [id number] RECD: 04/21/25 [facility]: BLOOD ENTR: 04/21/[address] [facility] [address]: TITA PETERSON MD [facility]: BLOOD MARY LEONARD VISHWAS B MD ORDERED: AERO ID & SENS Procedure Result Paulina Date-Time AEROBIC ID & SENSITIVITIES Preliminary 04/22/25-1157 MRL COLONY DESCRIPTION: DAY 1: GRAM POSITIVE COCCI IN CLUSTERS COAGULASE NEGATIVE STAPHYLOCOCCUS AEROBIC BOTTLE IDENTIFICATION AND SENSITIVITY TO FOLLOW PATIENT: MARTY BARRON MR#: [id number] : 1990 SEX: M AGE: 35 LOCATION: [facility] ORDER 162 STATUS: ADM IN REPORT#: [id number] SERVICE 162 REASON: MASS ORDERING PHYSICIAN: JUD BRAVO MD PROCEDURE: CAP WWO - CT CHEST/ABD/PELV W/WO CONTRAS ADDENDUM REPORT ADDENDUM: Results were shared by telephone at 7:14 pm on 04-22-25 and acknowledged by JUD Blackman. /[facility] CT CHEST ABDOMEN AND PELVIS WITH AND WITHOUT INTRAVENOUS CONTRAST Clinical Details: Mass evaluation. Technique: Axial CT images of the chest, abdomen, and pelvis were obtained with and without intravenous contrast. Comparison: Comparison is made with the CT abdomen/pelvis examination dated 22 April 2025. Findings: Chest: A spiculated infiltrative mass is identified in the right upper lobe measuring 5.4 ??? 4.6 cm. This lesion extends from the anterosuperior to posterosuperior segments, infiltrates the mediastinal pleura, and abuts the right main pulmonary artery. There is lobulated, heterogeneous, enhancing lymphadenopathy involving the right paratracheal, prevascular, precarinal, and subcarinal stations, with the largest node measuring 4 cm. Multiple bilateral spiculated nodules ranging from 1 to 2.5 cm are present throughout both lungs, consistent with metastatic deposits. The main pulmonary artery is enlarged, measuring 3.6 cm in diameter. Additional findings include bronchovascular thickening and parenchymal scarring in the bilateral upper lobe superobasal and posterobasal segments. No evidence of pneumothorax is noted. Abdomen and Pelvis: Hepatomegaly is present with the liver measuring 17 cm in craniocaudal dimension, accompanied by fatty infiltration. The gallbladder is surgically absent. Both adrenal glands demonstrate marked diffuse enlargement, measuring 5.9 ??? 3.6 cm on the right and 7.6 ??? 5.4 cm on the left. There is a left iliac fossa Spigelian hernia with a 7 cm fascial defect containing small and large bowel. Proximal small bowel dilation up to 4 cm is seen, with collapsed distal colon, consistent with mechanical bowel obstruction. Contrast pooling is noted at the descending???sigmoid junction, though visualization is limited by artefact. The thoracolumbar spine shows degenerative spondylosis and wedging deformity of the L4 vertebral body with approximately 30???40% height loss. A right upper extremity peripherally inserted central catheter line is observed with the tip located in the superior vena cava. No free fluid or pneumoperitoneum is identified. Additional Findings: None. Impression: * Patient is undergoing mass evaluation. * Interval progression since 22 April 2025 with a new right upper lobe spiculated infiltrative mass measuring 5.4 ??? 4.6 cm infiltrating mediastinal pleura and abutting the right main pulmonary artery. * Bulky mediastinal lymphadenopathy with largest node measuring 4 cm, involving right paratracheal, prevascular, precarinal, and subcarinal stations, increased since prior study. * Multiple bilateral spiculated pulmonary nodules (1???2.5 cm), consistent with metastatic disease progression. * Bilateral marked diffuse adrenal enlargement (Right 5.9 ??? 3.6 cm, Left 7.6 ??? 5.4 cm), likely metastatic or hyperplastic. 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 * Degenerative thoracolumbar spondylosis with L4 vertebral body wedging (30???40% height loss), unchanged. * Comparison is made with the exam dated 22 April 2025. Overall findings indicate worsening metastatic disease with new primary and gloria lesions and mechanical bowel obstruction requiring clinical and surgical correlation. Recommendations include oncologic evaluation and PET-CT staging, alongside urgent surgical consultation for bowel obstruction. /[place] DICTATED BY: JOSAFAT DALY MD DATE: 04/22/251915 ASSESSMENT: Hypoxic respiratory failure, requiring oxygen support. Staphylococcus epidermidis bacteremia, which is a contaminant. Leukocytosis. Right knee osteoarthritis. Bilateral pulmonary nodules consistent with metastatic disease. Small-bowel obstruction. Acute renal failure, improving. Morbid obesity. Recent Colon mass with colon resection and colostomy creation 3 months ago. PLAN: Continue cefepime. Continue metronidazole. NG tube to low intermittent suction. Continue oxygen support. Oncology has evaluated patient. Continue GI prophylaxis. Continue critical care support. Continue pain management. Avoid nephrotoxic medications. This case was reviewed and discussed with my supervising physician Dr. Nguyen and the above assessment and plan was formulated and agreed upon. ATTESTATION BY PHYSICIAN I have seen and examined the patient. I reviewed the documentation, medical decision making, and treatment plan as noted by the mid-level provider above. I agree with the findings and plan of care. JULIANNA NGUYEN MD, [facility] Apr 24, 2025 20:24
--- NOTE | 2025-04-24 21:48 | PN ---
SUBJECTIVE: A 35-year-old male with a history of obesity and sleep apnea. The patient presented to the hospital with acute on chronic renal failure. The patient's workup revealed possible metastatic disease. The patient is to be seen by oncology and the patient is being seen as a followup visit for all of the above. REVIEW OF SYSTEMS: GENERAL: The patient is feeling weak and tired. HEENT: No change in vision. No change in hearing. CARDIOVASCULAR: There is no current chest pain or palpitations. PULMONARY: He denies any shortness of breath. GASTROINTESTINAL: He continues with nausea. MUSCULOSKELETAL: Complaints of weakness. PHYSICAL EXAMINATION: VITAL SIGNS: Blood pressure is 141/95, pulse afebrile. GENERAL: He is a chronically ill male, young, lying in bed on the medical floor. HEENT: Head is atraumatic. Pupils are equal, round, and reactive to light. Oropharynx is without exudate. Nares clear. NECK: There is no JVP. There is no thyromegaly, no mass. CARDIOVASCULAR: Regular. There is no S3 or S4 gallop. LUNGS: Coarse with equal thoracic movement. ABDOMEN: Soft, nondistended, nontender. EXTREMITIES: Reveal no clubbing or cyanosis. NEUROLOGICAL: He is awake. He is alert. LABORATORY DATA: Sodium 146, potassium 3.9, BUN 18, creatinine 0.9. Hemoglobin 9.9, hematocrit 33. IMPRESSION: * Acute on chronic renal dysfunction. * Persistent nausea and vomiting. * Diabetes mellitus. * Hypertension. PLAN: The patient's creatinine is much improved. He continues with IV hydration. GI workup is ongoing. The patient's CT scan is noted. The patient was seen by Surgical Service and is to be seen by Oncology. We will continue to follow closely. The patient's family at the bedside. Multiple questions were all answered. TID: [id number] RECEIPT: [id number]
--- NOTE | 2025-04-24 21:57 | HMCIMG ---
EXAM: CR CHEST, 1 VIEW CLINICAL HISTORY: Hypoxic respiratory failure. COMPARISON: CR - CHEST 1VW - 04/22/25 15:54 EDT FINDINGS: LUNGS: Interval appearance of new left basilar atelectasis or developing consolidation. Stable right basilar atelectasis/early consolidation as seen on the prior study. No new focal pulmonary mass or diffuse infiltrate. PLEURAL SPACES: No pleural effusion or pneumothorax detected. MEDIASTINUM: The cardiomediastinal silhouette is within normal limits. No interval change in heart size. LINES AND DEVICES: Interval removal of the right upper extremity peripherally inserted central catheter (PICC). No new indwelling devices visualized. BONES: No acute or aggressive osseous lesion identified. IMPRESSION: * Interval development of new left basilar atelectasis/consolidation compared to 04/22/25 15:54 EDT. * Stable right basilar atelectasis/early consolidation compared to 04/22/25 15:54 EDT. * Interval removal of right upper extremity PICC line compared to 04/22/25 15:54 EDT. * No pleural effusion or pneumothorax. Cardiac size and mediastinal contours stable. COMPARISON SUMMARY: Compared with prior CR CHEST, 1 VIEW dated 04/22/25 15:54 EDT ??? new left basilar atelectasis/consolidation has developed, right basilar opacity remains unchanged, and the previously noted PICC line has been removed. Overall trend: mild interval radiographic progression with new contralateral basal change. Follow-up advised to assess for resolution or progression of airspace disease. /[facility]
--- NOTE | 2025-04-24 23:31 | CONS ---
KRISTIAN MORTON MD 04/24/25 2331: CONSULT REFERRING PHYSICIAN: Dr Wendy Jackson REASON FOR CONSULT: Multiple bilateral lung nodule HISTORY HPI: 35 year old morbidly obese male with a past medical history of Colon mass s/p resection with colostomy placement( October 2024) presented to ED for pain to rt knee on 04/19/25. Orthopedic surgeon recommended no surgical intervention .Patient developed abdominal pain and was also diagnosed with Severe sepsis and multisystem dysfunction .Subsequent CT chest/Abdomen/Pelvis revealed Left iliac fossa Spigelian hernia containing small and large bowel with mechanical small bowel obstruction.New right upper lobe spiculated infiltrative mass measuring 5.4 x 4.6 cm infiltrating mediastinal pleura and albumin in the right main pulmonary artery , Bulky mediastinal lymphadenopathy with the largest node measuring 4 cm involving the right paratracheal, prevascular, and subcarinal stations and Multiple bilateral spiculated pulmonary nodules consistent with metastatic disease progression was also seen. Oncology was consulted for the same . Patient is evaluated at the bedside . He is being treated conservatively for small bowel obstruction and reports improvement of his symptoms. As per the patient , he was admitted to [facility] in October 2024 for constipation and underwent colonoscopy when he was diagnosed with completely obstructing rectal tumor- pathology revealed moderately differentiated adenocarcinoma rectum. He was transferred to [facility] where he underwent resection of rectal mass and colostomy bag placement. As per the patient and bystanders , they are unaware about the pathology reports and were pending follow up with the surgeon .His Labs today show WBC 47665, Hb 9.9,plt 235..CEA is 6714. He is in NAD. PMH: constipation , morbid obesity , rectal adenocarcinoma PSH: Colon resection with Colostomy SH: Negative for smoking, alcohol use, drug use ALLERGIES: Coded Allergies: No Known Allergies (Unverified Allergy, Unknown, 09/21/22) CURRENT MEDS: Current Medications Medications (Trade) Dose Ordered Sig/Checo Route PRN Reason Start Time Stop Time Status Last Admin Furosemide (LASix 20MG VIAL) 20 mg Q8H IV 04/24/25 19:00 04/25/25 03:01 04/24/25 20:53 REVIEW OF SYSTEMS CONSTITUTIONAL: No FEVER, No SWEATS, No CHILLS, No WEIGHT LOSS HEENT: No JAUNDICE, No SORE THROAT, No SINUS PRESSURE, No VISION CHANGES RESPIRATORY: No COUGH, No CHEST PAIN, No SHORTNESS OF BREATH, No HEMOPTYSIS CARDIOVASCULAR: No PALPATIONS, No DYSPNEA ON EXERTION, No SYNCOPE GASTROINTESTINAL: No NAUSEA, No VOMITING, No DIARRHEA, No DYSPHAGIA; CONSTIPATION, ABDOMINAL PAIN; No HEMATEMESIS, No HEMATOCHEZIA, No MELENA GENITOURINARY: No DYSURIA, No HEMATURIA HEMATOLOGIC/LYMPHATIC: No EASY BRUISING, No CERVICAL ADENOPATHY, No AXILLARY ADENOPATHY, No INGUINAL ADENOPATHY MUSCULOSKELETAL: No BONE PAIN, No MASS, No NORMAL RANGE OF MOTION NEUROLOGICAL: WEAKNESS-EXTREMETIES; No DIPLOPIA, No NUMBNESS, No TINGLING PHYSICAL EXAM VITALS: Vital Signs Date Time Temp Pulse Resp B/P (MAP) Pulse Ox O2 Delivery O2 Flow Rate FiO2 04/24/25 19:10 105 20 N/Cannula Low lpm 4.0 36 04/24/25 19:08 98.4 135/91 94 GENERAL: ALERT, ORIENTED, APPEARS-NO ACUTE DISTRESS EYES: SCLERAE ANICTERIC, PUPILS EQUAL/REACTIVE ENT/NECK: ORAL MUCOSA W/O LESIONS, OROPHARYNX IS CLEAR, NECK SUPPLE W/O MASSES RESPIRATORY: LUNGS CLEAR-AUSC/PERCUS CARDIOVASCULAR: REGULAR RATE, REGULAR RHYTHM GASTROINTESTINAL: No ABDOMEN IS SOFT; TENDER, DISTENDED; No HEPATOSPLENOMEGALY; BOWEL SOUNDS PRESENT; No PALPABLE MASSES (colostomy bag in place ) HEMATOLOGY/LYMPHATIC: No CERVICAL ADENOPATHY, No SUPRACLAVICULR ADENOPATHY, No AXILLARY ADENOPATHY, No INGUINAL ADENOPATHY MUSCULOSKELETAL: No CYANOSIS-EXTREMETIES, No CLUBBING, No EDEMA NEUROLOGICAL: GROSSLY INTACT DIAGNOSTIC STUDIES PROCEDURE: CAP O - CT CHEST/ABD/PELV W/WO CONTRAS ADDENDUM REPORT ADDENDUM: Results were shared by telephone at 7:14 pm on 04-22-25 and acknowledged by JUD Blackman. /[facility] CT CHEST ABDOMEN AND PELVIS WITH AND WITHOUT INTRAVENOUS CONTRAST Clinical Details: Mass evaluation. Technique: Axial CT images of the chest, abdomen, and pelvis were obtained with and without intravenous contrast. Comparison: Comparison is made with the CT abdomen/pelvis examination dated 22 April 2025. Findings: Chest: A spiculated infiltrative mass is identified in the right upper lobe measuring 5.4 ??? 4.6 cm. This lesion extends from the anterosuperior to posterosuperior segments, infiltrates the mediastinal pleura, and abuts the right main pulmonary artery. There is lobulated, heterogeneous, enhancing lymphadenopathy involving the right paratracheal, prevascular, precarinal, and subcarinal stations, with the largest node measuring 4 cm. Multiple bilateral spiculated nodules ranging from 1 to 2.5 cm are present throughout both lungs, consistent with metastatic deposits. The main pulmonary artery is enlarged, measuring 3.6 cm in diameter. Additional findings include bronchovascular thickening and parenchymal scarring in the bilateral upper lobe superobasal and posterobasal segments. No evidence of pneumothorax is noted. Abdomen and Pelvis: Hepatomegaly is present with the liver measuring 17 cm in craniocaudal dimension, accompanied by fatty infiltration. The gallbladder is surgically absent. Both adrenal glands demonstrate marked diffuse enlargement, measuring 5.9 ??? 3.6 cm on the right and 7.6 ??? 5.4 cm on the left. There is a left iliac fossa Spigelian hernia with a 7 cm fascial defect containing small and large bowel. Proximal small bowel dilation up to 4 cm is seen, with collapsed distal colon, consistent with mechanical bowel obstruction. Contrast pooling is noted at the descending???sigmoid junction, though visualization is limited by a rtefact. The thoracolumbar spine shows degenerative spondylosis and wedging deformity of the L4 vertebral body with approximately 30???40% height loss. A right upper extremity peripherally inserted central catheter line is observed with the tip located in the superior vena cava. No free fluid or pneumoperitoneum is identified. Additional Findings: None. Impression: * Patient is undergoing mass evaluation. * Interval progression since 22 April 2025 with a new right upper lobe spiculated infiltrative mass measuring 5.4 ??? 4.6 cm infiltrating mediastinal pleura and abutting the right main pulmonary artery. * Bulky mediastinal lymphadenopathy with largest node measuring 4 cm, involving right paratracheal, prevascular, precarinal, and subcarinal stations, increased since prior study. * Multiple bilateral spiculated pulmonary nodules (1???2.5 cm), consistent with metastatic disease progression. * Bilateral marked diffuse adrenal enlargement (Right 5.9 ??? 3.6 cm, Left 7.6 ??? 5.4 cm), likely metastatic or hyperplastic. 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 * Degenerative thoracolumbar spondylosis with L4 vertebral body wedging (30???40% height loss), unchanged. * Comparison is made with the exam dated 22 April 2025. Overall findings indicate worsening metastatic disease with new primary and gloria lesions and mechanical bowel obstruction requiring clinical and surgical correlation. Recommendations include oncologic evaluation and PET-CT staging, alongside urgent surgical consultation for bowel obstruction. IMPRESSION 1.Rectal adeno carcinoma s/p resection and colostomy bag placement 2.Multiple pulmonary nodules and mediastinal nodes suggestive of metastasis 3.Sepsis 4.Acute Iron deficiency anemia with drop in hemoglobin PLAN 1.Pathology report from rectal biopsy - moderately differentiated adenocarcinoma . The new pulmonary nodules and mediastinal lymphadenopathy as per CT scan indicate the possibility of metastatic disease. CEA is 6714. We will request pulmonary nodule biopsy by IR . 2.Peripheral bloood smear shows microcytic hypochromic anemia consistent with iron deficiency anemia . There is teardrop cell, pelger huet cell and rouleaux formation .Increased number of WBCs observed with neutrophilia and hypersegmented neutrophils suggestive of underlying infection . Band cells ob served. Platelet morphology and count within normal limits . 3. There is hypersegmented neutrophil. This patient will benefit from Folic acid 1 mg daily and Vitamin B12 1000 mcg daily JANETTE GEE MD 04/25/25 1229: PLAN I attest that I was physically present to evaluate the patient and I reviewed and discussed the case with the Resident and agree with the Resident's findings and plans of care as documented above with modifications. Case discussed with resident on the date stated at the beginning of note. Patient was first seen and evaluated by me during this hospitalization. KRISTIAN MORTON MD Apr 24, 2025 23:31 JANETTE GEE MD Apr 25, 2025 12:29
[2025-04-25] VITALS (11 sets, daily range): BP systolic 117–132; BP diastolic 72–90; PULSE 92–107; RESP 18–20; TEMP 98–98.3; O2SAT 94–99
[2025-04-25 03:42] LABS: IMMATURE GRANULOCYTE ABSOLUTE 0.18 K/uL (0-1); NUCLEATED RED BLOOD CELLS 0.0 % (0.0-0.19); PLATELET COUNT (AUTO) 225 K/uL (130-400); RED BLOOD CELL COUNT(AUTO) 4.31 MIL/uL (4.50-6.20); RED CELL DISTRIBUTION WIDTH 17.9 % (11.0-15.5); WHITE BLOOD COUNT (AUTO) 15.1 K/uL (4.8-10.8)
[2025-04-25 03:56] LABS: ASPARTATE AMINOTRANSFERASE 28.0 U/L (10-37); CREATININE 0.9 mg/dL (0.5-1.3); GLOMERULAR FILTR. RATE CALC 114.0 mL/min (>90); GLUCOSE,RANDOM 122.0 mg/dL (70-105); SODIUM SERUM 151.0 mmol/L (136-145); TOTAL PROTEIN, SERUM 6.8 g/dL (6.0-8.3); UREA NITROGEN, BLOOD 26.0 mg/dL (7-18)
[2025-04-25 08:13] LABS: C DIFFICILE TOXIN A/B Not Detected (Not Detected); ENTEROAGGREGATIVE ECOLI Detected (Not Detected); GIARDIA LAMBLIA Not Detected (Not Detected); PLESIOMONAS SHIGELOIDES Not Detected (Not Detected); SAPOVIRUS Not Detected (Not Detected); SHIGELLA/ENTEROINVASIVE E COLI Not Detected (Not Detected); VIBRIO Not Detected (Not Detected); VIBRIO CHOLERAE Not Detected (Not Detected)
[2025-04-25] MEDS: DEXTROSE 5%-WATER 1,000 ML IV SCH (10:38)
--- NOTE | 2025-04-25 12:03 | PN ---
[facility] PROGRESS NOTE Date of Service: Apr 25, 2025 Time of Service: 11:58 SUBJECTIVE: 04/20 the patient has been seen and examined at bedside, case discussed with the RN, no acute events overnight, the time of my visit, the patient is awake, following commands, blood pressure 140/90, afebrile, saturating normal on room air. The patient is morbidly obese, he uses a CPAP at home, currently CPAP at bedside during my visit. WBC 14.0, hemoglobin 10.4, hematocrit 34.8, platelet count of 305. CMP shows sodium 141, potassium 3.5, BUN 70, creatinine 0.9, iron level of 25. X-ray of the knee showing moderate to severe three, power mental right knee osteoarthritis, predominantly in the lateral compartment, with small joint effusion. No acute fracture. Orthopedic physician consultation requested, we will follow input and recommendation. MRI of the right knee requested, however due to morbid obesity, might not be able to do it. Discussed with the mother is at the bedside, all questions answered, in agreement. 04/21 patient has been seen and examined at bedside, case discussed with the RN, no acute events overnight, the time my visit he is awake, following commands, admits mild dry nonproductive cough, spiked fever 102.6. Denied chest pain, shortness shortness for breath, no nausea, no vomiting, no abdominal discomfort. The patient has a colostomy bag, on examination, liquid stool noted. WBC slowly trending down at 12.7, hemoglobin stable 11.6. Magnesium 1.7. Added doxycycline 100 mg IV q.12 hours. Follow serology to include SARS antigen, influenza and rapid strep. We will give magnesium sulfate 2 g IV x1. We will order GI stool panel. Patient is scheduled for MRI to the right knee today, continue lidocaine patch, discussed with the orthopedic physician today, we will follow input and recommendation. 04/22 patient is seen and examined at bedside, discussed with the RN. Patient currently feels nauseated. He admits mild discomfort to the right lower quadrant. BP 135/77, mildly tachycardic at 108, saturating normal on room air. Maximum temperature last 24 hours 102.7. CBC shows a hemoglobin of 11.6, hematocrit 35.7, platelet count of 276, with a platelet count of 23.8. Creatinine 2.1. MRI of the right knee shows tricompartmental osteoarthritis with osteophytosis and diffuse cartilage loss, medial and lateral meniscal with complex degenerative tear involving posterior horns and bodies, meniscal tear severity grade 3, full-thickness chondral defect of the lateral femoral condyle, with a underlying subchondral edema, small reactive joint effusion with mild synovitis. We will upgraded the patient to the PCU, LR at 50 mL/hours, follow repeat CBC, CMP and magnesium level. Continue Rocephin and doxycycline IV. We will order a CT of the abdomen and pelvis without contrast to rule out intra- abdominal acute pathology. Orthopedic input noted and appreciated, patient with bad arthritis, we will finally benefit from knee replacement, however considering his morbid obesity, it is not indicated right now. Recommended co nservative approach. Mother at bedside, all questions answered, updated, in agreement with plan of care. 04/23 patient is seen and examined at bedside, discussed with the RN, no acute events overnight, patient upgraded to the ICU yesterday due to sepsis and developing small bowel obstruction. Today the patient is awake, following commands, he is NPO, NG tube to intermittent suction, BP 120/76, heart rate of 111, saturating 96% 3 L nasal cannula, temperature 98.4. WBC of 27.6, hemoglobin 10.6, hematocrit 35.5, platelet count 240, creatinine improved to 1.2. Septic workup with blood culture positive for Staphylococcus epidermidis. Echocardiogram and chest x-ray pending. Patient will remain admitted to the ICU, continue broad-spectrum IV antibiotics, we will follow surgical input recommendation. Continue to follow critical Care and ID input and recommendation. And we will update the mother regarding results of CT of the abdomen pelvis and further plan of care when she is present in the room. CT abdomen and pelvis reviewed, as follows: * Patient is undergoing mass evaluation. * Interval progression since 22 April 2025 with a new right upper lobe spiculated infiltrative mass measuring 5.4 ??? 4.6 cm infiltrating mediastinal pleura and abutting the right main pulmonary artery. * Bulky mediastinal lymphadenopathy with largest node measuring 4 cm, involving right paratracheal, prevascular, precarinal, and subcarinal stations, increased since prior study. * Multiple bilateral spiculated pulmonary nodules (1???2.5 cm), consistent with metastatic disease progression. * Bilateral marked diffuse adrenal enlargement (Right 5.9 ??? 3.6 cm, Left 7.6 ??? 5.4 cm), likely metastatic or hyperplastic. 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 * Degenerative thoracolumbar spondylosis with L4 vertebral body wedging (30???40% height loss), unchanged. * Comparison is made with the exam dated 22 April 2025. Overall findings indicate worsening metastatic disease with new primary and gloria lesions and mechanical bowel obstruction requiring clinical and surgical correlation. Recommendations include oncologic evaluation and PET-CT staging, alongside urgent surgical consultation for bowel obstruction. 04/24 patient is seen and examined at bedside, discussed with the RN, no acute events overnight, patient downgraded from the ICU to the PCU, he remains NPO, NG tube connected to intermittent suction, output in the last 12 hours 200 mL. BP 146/150, heart rate of 101, afebrile, saturating 96-97% on nasal cannula. CBC shows a hemoglobin of 9.9, hematocrit 33.5, platelet count of 235, with WBC of 21.3. CMP with sodium 146, potassium 3.8, BUN of 18, creatinine 0.9, magnesium 1.8. Blood culture 04/21/2025 positive for Staphylococcus epidermidis. Repeat blood cultures 04/23/2025 no growth after 24 hours echocardiogram 04/23/2025 LVEF 50-55%, no left ventricle thrombus, no intracardiac masses, no valvular vegetations. Today chest x-ray pending. Patient will remain admitted to the PCU, NPO, intermittent suction, continue to follow surgical input recommendation, continue broad-spectrum IV antibiotics, follow WBC in a.m.. Follow KUB. I HAVE CONTACTED THE DEPARTMENT OF MEDICAL RECORDS [facility], SPOKE WITH ZENA AT PHONE NUMBER [phone], I HAVE REQUESTED MEDICAL RECORDS. WE WILL FOLLOW UP. 04/25 patient is seen and examined at bedside, case discussed with the RN, no acute events overnight, he remains comfortably in bed, NPO, NG tube to intermittent suction, he is awake, following commands, BP 128/90, area of 101, afebrile. Still feels distended. On examination colostomy bag, enema output noted. KUB pending. KUB from 04/24/2025 showing markedly dilated small bowel loops up to 5.6 cm, consistent with distal small-bowel obstruction, no pneumoperitoneum, pneumatosis intestinalis or portal venous gas. I received medical records from [facility], patient was admitted on 11/19/2024 and discharged 12/08/2024. Areolar in the hospital patient underwent exploratory laparoscopy, laparotomy and creation of transverse loop colostomy 11/28/2024. Patient was evaluated by oncologist Braulio Bell. 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 Per my discussion with the mother, from [facility] the patient was discharged to [facility] to recover and from there he went home. Patient has not had a follow up appointment with the general surgeon or oncologist after that. We have requested Oncology consultation here during this admission. Pathology report from rectal biopsy shows moderately differentiated adenocarcinoma, then new pulmonary nodules and mediastinal lymphadenopathy as per CT scan indicates the possibility of metastatic disease. CEA is 6714. Re quested pulmonary nodule biopsy by IR. Patient will remain admitted to the PCU, we will continue NG tube to intermittent suction, NPO, TPN, follow surgical input and recommendation. Follow repeat KUB. Mother at bedside, updated, all questions answered. Plan of care discussed with the patient as well, in agreement. REVIEW OF SYSTEMS CONSTITUTIONAL: Denies fevers, chills, or night sweats. No unintentional weight loss reported. NEUROLOGICAL: Denies headache, amaurosis fugax, motor weakness, sensory deficit, vertigo/spinning sensation, gait abnormalities, or tremors. ENT: No hearing loss, otalgia, otorrhea, rhinitis, rhinorrhea, hoarseness, or sore throat. CARDIOVASCULAR: Denies any exertional angina, dyspnea on exertion, orthopnea, paroxysmal nocturnal dyspnea, palpitations, life-threatening arrhythmias, claudication. PULMONARY: Denies any shortness of breath, cough, phlegm/sputum, hemoptysis, pleuritic chest pain. SLEEP: Denies morning headaches, daytime somnolence or napping. Denies difficulty falling asleep, staying asleep, waking from sleep. Denies knowledge of snoring. GASTROINTESTINAL: Denies any type of dysphagia to either liquids or solids. Denies nausea, vomiting, pyrosis, early satiety, abdominal pain, diarrhea, constipation, or changes in stool consistency or caliber. Denies coffee-ground emesis, hematemesis, hematochezia, or melanotic stools. GENITOURINARY: Denies frequency, urgency, nocturia, hematuria or incontinence (Storage/Irritative symptoms.) Low urinary stream, straining to void, urinary intermittency or hesitancy, splitting of the voiding stream, terminal dribbling. ENDOCRINOLOGIC: Denies polyuria, polydipsia, polyphagia or heat/cold intolerances. HEMATOLOGIC: Denies thrombophilia/previous clots, or coagulopathy/bleeding disorders. ONCOLOGIC: Denies personal history of malignancy. DERMATOLOGIC: Denies rashes or pruritus. PSYCHIATRIC: Denies any suicidal or homicidal ideation. Denies hallucinations. PHYSICAL EXAM GENERAL APPEARANCE: Patient awake, following commands, NG tube to intermittent suction. NEUROLOGICAL: Cranial nerves II-XII grossly intact. Motor is 5/5 in bilateral upper and lower extremities proximal to distal. No sensory deficits. HEENT: Face is symmetric. Pupils are equal and reactive. Extraocular movements are intact. NECK: Supple. No JVD. No thyromegaly. No submental, submandibular, pre- /postauricular, occipital or supraclavicular lymphadenopathy. CHEST: Normal chest expansion. No Telemetry. LUNGS: Absence of any rales, rhonchi or any wheezing. CARDIOVASCULAR: Regular. S1 and S2 normal. No appreciable rubs, murmurs or gallops. ABDOMEN: Liquid output colostomy bag noted. : Deferred. No Doe. EXTREMITIES: Mild swelling to the right knee area, lidocaine patch in place. SKIN: No skin breakdown. Vital Signs (last 8hr) Date Time Temp Pulse Resp B/P (MAP) Pulse Ox O2 Delivery O2 Flow Rate FiO2 04/25/25 07:57 98.1 101 20 128/90 95 Nasal Cannula 2.0 04/25/25 06:50 92 18 N/Cannula Low lpm 3.0 32 LABS: Laboratory: Test 04/25/25 03:31 04/23/25 15:46 Range/Units White Blood Count 15.1 H 4.8-10.8 K/uL Red Blood Count 4.31 L 4.50-6.20 MIL/uL Hemoglobin 9.9 L 14.0-18.0 g/dL Hematocrit 33.4 L 42-54 % Mean Corpuscular Volume 77.5 L 79-99 fL Mean Corpuscular Hemoglobin 23.0 L 27.0-33.0 pg Mean Corpuscular Hemoglobin Concent 29.6 L 32.0-36.0 g/dL Red Cell Distribution Width 17.9 H 11.0-15.5 % Platelet Count 225 130-400 K/uL Mean Platelet Volume 11.1 H 7.5-10.5 fL Immature Granulocyte % (Auto) 1.2 H 0-1 % Neutrophils (%) (Auto) 82.0 H 40.0-77.0 % Lymphocytes (%) (Auto) 6.6 L 21.0-51.0 % Monocytes (%) (Auto) 8.7 3.0-13.0 % Eosinophils (%) (Auto) 1.2 0.0-8.0 % Basophils (%) (Auto) 0.3 0.0-5.0 % Neutrophils # (Auto) 12.4 H 1.8-7.7 K/uL Lymphocytes # (Auto) 1.0 1.0-4.8 K/uL Monocytes # (Auto) 1.3 H 0.1-1.0 K/uL Eosinophils # (Auto) 0.18 0.00-0.70 K/uL Basophils # (Auto) 0.05 0.00-0.20 K/uL Absolute Immature Granulocyte (auto 0.18 0-1 K/uL Nucleated Red Blood Cells 0.0 0.0-0.19 % Sodium Level 151 H 136-145 mmol/L Potassium Level 3.7 3.5-5.1 mmol/L Chloride Level 109 101-111 mmol/L Carbon Dioxide Level 31 21-32 mmol/L Blood Urea Nitrogen 26 H 7-18 mg/dL Creatinine 0.9 0.5-1.3 mg/dL Glomerular Filtration Rate Calc 114 >90 mL/min Random Glucose 122 H 70-105 mg/dL Lactic Acid Level 1.7 0.8-2.5 mmol/L Total Calcium 8.7 8.5-10.1 mg/dL Magnesium Level 2.10 1.80-2.40 mg/dL Total Bilirubin 1.3 H 0.2-1.0 mg/dL Aspartate Amino Transf (AST/SGOT) 28 10-37 U/L Alanine Aminotransferase (ALT/SGPT) 21 12-78 U/L Alkaline Phosphatase 208 H 50-136 U/L Total Protein 6.8 6.0-8.3 g/dL Albumin 1.9 L 3.5-5.0 g/dL Vancomycin Level Trough 7.1 #L 10.0-20.0 UG/ML Current Medications Medications (Trade) Dose Ordered Sig/Checo Route PRN Reason Start Time Stop Time Status Last Admin Dose Admin Acetaminophen (TYLenol 325MG TAB) 650 mg Q6H PRN PO FEVER/pain 1-3 04/19/25 22:00 05/19/25 21:59 04/21/25 02:20 650 MG Cefepime HCl (MAXipime 2 gm vial) 2 gm Q8H IVPB 04/22/25 13:00 05/02/25 12:59 04/25/25 05:20 2 GM Ceftriaxone Sodium (ROCEphine 1G INJ) 1 gm Q24H IVPB 04/20/25 10:00 04/22/25 12:41 DC 04/22/25 10:53 1 GM Dextrose 1,000 ml @ 100 mls/hr Q10H IV 04/25/25 08:00 05/25/25 07:59 04/25/25 10:38 100 MLS/HR Doxycycline Hyclate 250 ml @ 125 mls/hr Q12H IV 04/21/25 08:30 04/22/25 12:41 DC 04/22/25 08:14 125 MLS/HR Enoxaparin Sodium (Lovenox) 40 mg DAILY SQ 04/20/25 09:00 04/22/25 20:00 DC 04/22/25 08:14 40 MG Enoxaparin Sodium (Lovenox) 40 mg Q12H SQ 04/22/25 21:00 05/20/25 08:59 04/25/25 10:23 40 MG Famotidine (Pepcid 20mg Tab) 20 mg DAILY PO 04/20/25 09:00 05/20/25 08:59 04/24/25 10:16 20 MG Furosemide (LASix 20MG VIAL) 20 mg Q8H IV 04/24/25 19:00 04/25/25 03:01 DC 04/25/25 03:06 20 MG Hydralazine HCl (APRESOLine 20MG INJ) 5 mg Q6H PRN IV For:SBP above 160;DBP above 90 04/20/25 16:00 05/20/25 15:59 Hydralazine HCl (APRESOLine 20MG INJ) 10 mg Q6H PRN IV For:SBP above 160;DBP above 90 04/19/25 22:00 04/20/25 10:52 DC Hydromorphone HCl (DiLAUDid 0.5MG INJ) 0.5 mg Q4H PRN IVP SEVERE PAIN (7-10) 04/22/25 20:00 04/27/25 19:59 Ketorolac Tromethamine (toRADol) 15 mg Q6H PRN IV MODERATE PAIN (4-6) 04/20/25 11:00 04/22/25 19:58 DC 04/20/25 22:08 15 MG Labetalol HCl (TRANdate 20MG SYG) 10 mg Q6H PRN IV SUSTAINED HR >120 04/23/25 00:00 05/23/25 00:00 Lactated Ringer's 1,000 ml @ 50 mls/hr Q20H IV 04/21/25 12:30 04/25/25 07:47 DC 04/24/25 02:58 75 MLS/HR Lactated Ringer's 1,000 ml @ 100 mls/hr Q10H IV 04/19/25 22:00 04/20/25 10:52 DC 04/21/25 12:40 100 MLS/HR Lactulose (Constulose 20gm/ 30ml Udcup) 20 gm BID PRN PO CONSTIPATION 04/19/25 22:00 05/19/25 21:59 Lidocaine (Lidocaine Patch 4%) 1 each DAILY TP 04/21/25 09:00 05/21/25 08:59 04/25/25 10:23 1 EACH Magnesium Sulfate 50 ml @ 0 mls/hr PROTOCOL IV 04/21/25 08:30 05/21/25 08:29 04/24/25 06:11 25 MLS/HR Metronidazole/ Sodium Chloride 100 ml @ 100 mls/hr Q8H6 IVPB 04/22/25 14:00 05/02/25 13:59 04/25/25 06:35 100 MLS/HR Morphine Sulfate (morPHINE 4MG SYG) 4 mg Q4H PRN IVP SEVERE PAIN (7-10) 04/19/25 22:00 04/20/25 10:52 DC Ondansetron HCl (zoFRAN 4MG INJ) 4 mg Q6H PRN IV NAUSEA/VOMITING 04/19/25 22:00 05/19/25 21:59 04/24/25 22:19 4 MG Promethazine HCl (Phenergan) 12.5 mg Q8H5 PRN IM NAUSEA/VOMITING 04/22/25 12:30 05/22/25 12:29 04/22/25 12:25 12.5 MG Sodium Chloride 500 ml @ 0 mls/hr Q0M STAT IV 04/22/25 13:17 04/22/25 13:22 DC 04/22/25 14:39 600 MLS/HR Vancomycin HCl (Vancomycin Protocol) 1 each AD IV 04/22/25 15:00 04/23/25 22:23 DC DIAGNOSTICS / RADIOLOGY: [ ] ASSESSMENT: Right knee osteoarthritis, POA Intractable knee pain, POA Obesity, POA PLAN: patient is seen and examined at bedside, case discussed with the RN, no acute events overnight, he remains comfortably in bed, NPO, NG tube to intermittent suction, he is awake, following commands, BP 128/90, area of 101, afebrile. Still feels distended. On examination colostomy bag, enema output noted. KUB pending. KUB from 04/24/2025 showing markedly dilated small bowel loops up to 5.6 cm, consistent with distal small-bowel obstruction, no pneumoperitoneum, pneumatosis intestinalis or portal venous gas. I received medical records from [facility], patient was admitted on 11/19/2024 and discharged 12/08/2024. Areolar in the hospital patient underwent exploratory laparoscopy, laparotomy and creation of transverse loop colostomy 11/28/2024. Patient was ev aluated by oncologist Braulio Bell. 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 Per my discussion with the mother, from [facility] the patient was discharged to [facility] to recover and from there he went home. Patient has not had a follow up appointment with the general surgeon or oncologist after that. We have requested Oncology consultation here during this admission. Pathology report from rectal biopsy shows moderately differentiated adenocarcinoma, then new pulmonary nodules and mediastinal lymphadenopathy as per CT scan indicates the possibility of metastatic disease. CEA is 6714. Requested pulmonary nodule biopsy by IR. Patient will remain admitted to the PCU, we will continue NG tube to intermittent suction, NPO, TPN, follow surgical input and recommendation. Follow repeat KUB. Mother at bedside, updated, all questions answered. Plan of care discussed with the patient as well, in agreement. NEURO: Minimize central acting medications as possible. Fall Precautions. Well lighted room through the day and minimize interruptions through the night to prevent acute delirium. PULMONARY: Supplemental 02 as needed BiPAP as necessary, for respiratory distress Titrate Fio2 to keep Spo2 > or = 90% DuoNebs and CPT as needed IS hourly while awake for pulmonary hygiene prn Out of bed to chair as tolerated Maintain aspiration precautions at all times CARDIOVASCULAR: Follow hemodynamics. Vital signs per facility protocol GI & NUTRITION: Continue nutritional support Aspirations precautions Prokinetic agents and laxatives as needed KIDNEYS & ELECTROLYTES: Strict monitoring of intake and output Daily weights Avoid nephrotoxic agents Monitor electrolytes and replace as needed Goal urine output of 30mL/hr or 0.5mL/kg/hr Medications to be dosed according to renal function. Avoid contrast if possible ENDOCRINE: Maintain blood glucose between 100-180 at all times. Insulin sliding scale for blood glucose management Hypoglycemia and hyperglycemia protocol in place INFECTIOUS DISEASE: Trend temperature, WBC and procalcitonin level Follow cultures, deescalate antibiotics as soon as possible. Panculture if new onset fever HEMATOLOGY & COAGULATION: Monitor H&H. Keep Hgb > 7 Transfuse 1 unit of PRBC for Hgb < 7 Transfuse 1 pack of platelets of platelets < 20, 000 Watch for any signs and symptoms of bleeding SKIN: Pressure ulcer prevention per facility protocol Specialty mattress as needed ORTHO/REHAB Continue PT/OT PRN: MEDICATIONS Tylenol 650 mg po every 4 hrs for fever zofran 4 mg IV every 6 hrs for n/v Hydralazine 5 mg IV every 4 hrs systolic pressure > 160 bowel regiment: lactulose 20 gm PO BID PRN constipation Supportive measures: Continue GI and DVT prophylaxis Disposition: Pending improvement in clinical condition All questions answered time spent: > 35 min TITA PETERSON MD Apr 25, 2025 12:03
--- NOTE | 2025-04-25 12:23 | PN ---
[facility] PROGRESS NOTE Date Patient Seen: Apr 25, 2025 Time of Visit: 12:23 Supervising Physician: Sonny Jha MD Primary Care Physician: Justin Marcus Outpatient Specialists: [ ] Inpatient Consults: Dr Nguyen, Dr Abad, Dr Henry, DR Johnson PROBLEM LIST: Severe sepsis with MODS, improving Leukocytosis Gram-positive cocci bacteremia Chronic microcytic and hypochromic anemia New right upper lobe spiculated infiltrative mass measuring 5.4 x 4.6 cm infiltrating mediastinal pleura and albumin in the right main pulmonary artery Bulky mediastinal lymphadenopathy with the largest node measuring 4 cm involving the right paratracheal, prevascular, and subcarinal stations Multiple bilateral spiculated pulmonary nodules consistent with metastatic disease progression -pending CT-guided biopsy Bilateral marked diffuse adrenal enlargement likely metastatic or hyperplastic Left iliac fossa 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 INTERVAL HISTORY: Patient is awake alert and oriented x3. Currently on 2 L via nasal cannula. NG tube is clamped and patient to start clear liquid diet today per General surgery recommendations.. He is hemodynamically stable in no apparent respiratory distress. Per oncology patient does have a history of positive rectal adenocarcinoma to the colon mass which was resected and colostomy was placed recently at [facility]. Oncology recommend CT-guided pulmonary nodule biopsy. Per patient and family they have accepted and agreed with plan. DC IV fluids since patient was started having clear liquids. REVIEW OF SYSTEMS: 12 point ROS reviewed with patient. Pertinent positives mentioned above. Otherwise negative. PHYSICAL EXAM: GENERAL: alert, weak, awake oriented x 3 HEENT: EOMI, Sclera non icteric, moist mucosa NC NECK: Supple, no JVD, trachea midline LUNGS: Diminished breath sounds bilaterally. No wheezes HEART: controlled rate and rhythm. Normal S1 and S2, without murmurs ABD: morbidly obese Abdomen soft, nontender. Bowel sounds hypoactive EXT: No clubbing cyanosis or edema NEURO: Alert and oriented to person, follows commands Vital Signs (last 8hr) Date Time Temp Pulse Resp B/P (MAP) Pulse Ox O2 Delivery O2 Flow Rate FiO2 04/25/25 07:57 98.1 101 20 128/90 95 Nasal Cannula 2.0 04/25/25 06:50 92 18 N/Cannula Low lpm 3.0 32 LABS: Hematology Labs: Test 04/25/25 03:31 Range/Units White Blood Count 15.1 H 4.8-10.8 K/uL Red Blood Count 4.31 L 4.50-6.20 MIL/uL Hemoglobin 9.9 L 14.0-18.0 g/dL Hematocrit 33.4 L 42-54 % Mean Corpuscular Volume 77.5 L 79-99 fL Mean Corpuscular Hemoglobin 23.0 L 27.0-33.0 pg Mean Corpuscular Hemoglobin Concent 29.6 L 32.0-36.0 g/dL Red Cell Distribution Width 17.9 H 11.0-15.5 % Platelet Count 225 130-400 K/uL Mean Platelet Volume 11.1 H 7.5-10.5 fL Immature Granulocyte % (Auto) 1.2 H 0-1 % Neutrophils (%) (Auto) 82.0 H 40.0-77.0 % Lymphocytes (%) (Auto) 6.6 L 21.0-51.0 % Monocytes (%) (Auto) 8.7 3.0-13.0 % Eosinophils (%) (Auto) 1.2 0.0-8.0 % Basophils (%) (Auto) 0.3 0.0-5.0 % Neutrophils # (Auto) 12.4 H 1.8-7.7 K/uL Lymphocytes # (Auto) 1.0 1.0-4.8 K/uL Monocytes # (Auto) 1.3 H 0.1-1.0 K/uL Eosinophils # (Auto) 0.18 0.00-0.70 K/uL Basophils # (Auto) 0.05 0.00-0.20 K/uL Absolute Immature Granulocyte (auto 0.18 0-1 K/uL Nucleated Red Blood Cells 0.0 0.0-0.19 % Chemistry Labs: Test 04/25/25 03:31 Range/Units Sodium Level 151 H 136-145 mmol/L Potassium Level 3.7 3.5-5.1 mmol/L Chloride Level 109 101-111 mmol/L Carbon Dioxide Level 31 21-32 mmol/L Blood Urea Nitrogen 26 H 7-18 mg/dL Creatinine 0.9 0.5-1.3 mg/dL Glomerular Filtration Rate Calc 114 >90 mL/min Random Glucose 122 H 70-105 mg/dL Lactic Acid Level 1.7 0.8-2.5 mmol/L Total Calcium 8.7 8.5-10.1 mg/dL Magnesium Level 2.10 1.80-2.40 mg/dL Total Bilirubin 1.3 H 0.2-1.0 mg/dL Aspartate Amino Transf (AST/SGOT) 28 10-37 U/L Alanine Aminotransferase (ALT/SGPT) 21 12-78 U/L Alkaline Phosphatase 208 H 50-136 U/L Total Protein 6.8 6.0-8.3 g/dL Albumin 1.9 L 3.5-5.0 g/dL DIAGNOSTICS / RADIOLOGY RESULTS: [ ] PLAN Follow oncology recommendations Plan for CT-guided biopsy for later on today Maintain O2 sats above 92% continue PUD and DVT PPX Per General surgery okay to start clear liquids now. NG tube is clamped. follow general surgery recommendations NEURO: Minimize central acting medications as possible. Maintain fall precautions, adequate lighting during the day PULMONARY: Supplemental 02 as needed. Maintain aspiration precautions at all times CARDIOVASCULAR: Follow hemodynamics. Vital signs per facility protocol GI & NUTRITION: Continue with nutritional support. Continue stool softeners and laxatives as needed. KIDNEYS & ELECTROLYTES: Strict monitoring of intake, output and overall fluid balance. Avoid nephrotoxic medications to the extent possible. Medications to be dosed according to renal function. Monitor electrolytes and replace as needed ENDOCRINE: Maintain blood glucose between 100-180 at all times. Hypoglycemia protocol in place INFECTIOUS DISEASE: Trend temperature, WBC and procalcitonin level Follow cultures, deescalate antibiotics as soon as possible. Panculture if new onset fever ONCOLOGY/HEMATOLOGY/COAGULATION: Monitor for s/s of bleeding Monitor hemoglobin, coagulation studies as needed SKIN: Pressure ulcer prevention per facility protocol Specialty mattress ORTHO/REHAB: Continue PT/OT Prophylaxis: Continue GI and DVT prophylaxis Code Status: Full Resuscitation Disposition: TBD Other: ATTESTATION BY PHYSICIAN I have evaluated the patient chart, medical records, and spoke with appropriate staff. I reviewed the documentation, medical decision making, and treatment plan as noted by the mid-level provider above. I agree with the findings and plan of care. oSnny Jha MD, [facility] Apr 25, 2025 12:23
--- NOTE | 2025-04-25 18:13 | HMCIMG ---
EXAM: CR Abdomen, 3 View. CLINICAL HISTORY: Rule out perforation. COMPARISON: CR - ABD 2VW - 04/24/25 21:14 EDT. FINDINGS: BOWEL: Persistent dilated small bowel loops in the central abdomen, similar in caliber to prior study, consistent with stable distal small bowel obstruction. PERITONEUM/SOFT TISSUES: No pneumoperitoneum identified. No abnormal soft tissue calcifications. Enteric catheter not visualized below the diaphragm. There are left side bladder stones seen. BONES: No aggressive appearing osseous lesion seen. IMPRESSION: * On comparison with prior examination dated 04/24/25 21:14 EDT, interval stable distension of small bowel loops in the central abdomen consistent with persistent small bowel obstruction. * No pneumoperitoneum detected. There are left side bladder stones seen. * Enteric catheter not visualized below the diaphragm. /[place]
--- NOTE | 2025-04-25 19:28 | PN ---
FOLLOWUP PROGRESS NOTE SUBJECTIVE: A 35-year-old male with history of colon cancer. The patient has a history of obesity and sleep apnea. The patient presented to the hospital and found to have significant nausea and vomiting. The patient continues to be n.p.o. He has had acute renal failure in the hospital as well as hypernatremia. The patient's CT scan revealed possible metastatic disease. He is scheduled for a lung biopsy later today and the patient is being seen as a followup visit for all of the above. REVIEW OF SYSTEMS: CONSTITUTIONAL: He is feeling weak and tired. HEENT: No change in vision. No change in hearing. CARDIOVASCULAR: No current chest pain or palpitations. PULMONARY: No shortness of breath. GASTROINTESTINAL: As described above. MUSCULOSKELETAL: Complains of weakness. PHYSICAL EXAMINATION: VITAL SIGNS: Blood pressure 128/90. Pulse is 90. GENERAL: He is a chronically obese male, young, lying in bed on the medical floor. HEENT: Head is atraumatic. Pupils are equal, round and reactive to light. Oropharynx is without exudate. Nares are clear. NECK: There is no JVP. There is no thyromegaly, no mass. CARDIOVASCULAR: Regular. There is no S3 or S4 gallop. LUNGS: Coarse with equal thoracic movement. ABDOMEN: Soft, nondistended, and nontender. EXTREMITIES: Reveal no clubbing or cyanosis. NEUROLOGICAL: He is awake. He is alert. LABORATORY DATA: Sodium 151, BUN 26, creatinine 0.9, hemoglobin 9.9, hematocrit 33. IMPRESSION: Acute renal failure. Electrolyte abnormalities. Metastatic disease. Malnutrition. PLAN: The patient's renal function has improved. The patient with significant hypernatremia. We will increase the D5W to 100 mL per hour and continue until the patient is able to tolerate a diet. The patient is scheduled for a lung biopsy later today. Workup is ongoing per Oncology. Electrolytes have all been aggressively repleted. All labs to be repeated in the morning. I did discuss with the patient's family. TID: [id number] RECEIPT: [id number]
--- NOTE | 2025-04-25 22:03 | PN ---
INFECTIOUS DISEASE PROGRESS NOTE Date of Service: Apr 25, 2025 SUBJECTIVE: This is a 35-year-old male patient admitted for right knee pain who was seen and examined at bedside in room 223. Patient is awake, alert and oriented x3. Remains on oxygen support via nasal cannula. NG tube to low intermittent suction. The WBC has trended down to 15.1 and no fever. Continues on cefepime and metronidazole IV. Plan for pulmonary nodule biopsy by IR possible tomorrow. Patient's mother at bedside, questions answered. PHYSICAL EXAM EYES: Anicteric. Pupils equal and reactive. HENT: No oral thrush seen, moist Oral mucosa. NG tube to low intermittent suction. NECK: Supple, no JVD or thyromegaly. LUNGS: Good air entry. No rales, no rhonchi. CARDIOVASCULAR: S1, S2 regular. No murmur heard. ABDOMEN: Abdomen is large but Soft, bowel sounds present. Abdominal scar and Left colostomy. CENTRAL NERVOUS SYSTEM: Awake, alert, oriented x 3. SKIN: No rashes, no swelling. LYMPHATICS: No peripheral lymphadenopathy. MUSCULOSKELETAL: Right knee pain. EXTREMITIES: No cyanosis or clubbing. BACK: No deformity, no pressure ulcer. GENITOURINARY: No dysuria or hematuria. Vital Sign (Last 12 Hours) 04/25/25 04/25/25 04/25/25 04/25/25 12:00 16:04 18:41 18:42 Temp 98.2 98.1 Pulse 98 100 95 95 Resp 20 20 18 18 B/P (MAP) 132/86 124/80 Pulse Ox 94 94 O2 Delivery Nasal Cannula Nasal Cannula N/Cannula Low lpm O2 Flow Rate 2.0 2.0 2.0 FiO2 04/25/25 19:01 Temp 98.1 Pulse 99 Resp 18 B/P (MAP) 129/75 Pulse Ox 98 O2 Delivery Room Air Intake & Output (last 24hrs) 04/24/25 04/24/25 04/25/25 15:00 23:00 07:00 Intake Total 1000.0 ml Output Total 2110 ml Balance -1110.0 ml LABS: Laboratory: Test 04/25/25 03:31 Range/Units White Blood Count 15.1 H 4.8-10.8 K/uL Red Blood Count 4.31 L 4.50-6.20 MIL/uL Hemoglobin 9.9 L 14.0-18.0 g/dL Hematocrit 33.4 L 42-54 % Mean Corpuscular Volume 77.5 L 79-99 fL Mean Corpuscular Hemoglobin 23.0 L 27.0-33.0 pg Mean Corpuscular Hemoglobin Concent 29.6 L 32.0-36.0 g/dL Red Cell Distribution Width 17.9 H 11.0-15.5 % Platelet Count 225 130-400 K/uL Mean Platelet Volume 11.1 H 7.5-10.5 fL Immature Granulocyte % (Auto) 1.2 H 0-1 % Neutrophils (%) (Auto) 82.0 H 40.0-77.0 % Lymphocytes (%) (Auto) 6.6 L 21.0-51.0 % Monocytes (%) (Auto) 8.7 3.0-13.0 % Eosinophils (%) (Auto) 1.2 0.0-8.0 % Basophils (%) (Auto) 0.3 0.0-5.0 % Neutrophils # (Auto) 12.4 H 1.8-7.7 K/uL Lymphocytes # (Auto) 1.0 1.0-4.8 K/uL Monocytes # (Auto) 1.3 H 0.1-1.0 K/uL Eosinophils # (Auto) 0.18 0.00-0.70 K/uL Basophils # (Auto) 0.05 0.00-0.20 K/uL Absolute Immature Granulocyte (auto 0.18 0-1 K/uL Nucleated Red Blood Cells 0.0 0.0-0.19 % Sodium Level 151 H 136-145 mmol/L Potassium Level 3.7 3.5-5.1 mmol/L Chloride Level 109 101-111 mmol/L Carbon Dioxide Level 31 21-32 mmol/L Blood Urea Nitrogen 26 H 7-18 mg/dL Creatinine 0.9 0.5-1.3 mg/dL Glomerular Filtration Rate Calc 114 >90 mL/min Random Glucose 122 H 70-105 mg/dL Lactic Acid Level 1.7 0.8-2.5 mmol/L Total Calcium 8.7 8.5-10.1 mg/dL Magnesium Level 2.10 1.80-2.40 mg/dL Total Bilirubin 1.3 H 0.2-1.0 mg/dL Aspartate Amino Transf (AST/SGOT) 28 10-37 U/L Alanine Aminotransferase (ALT/SGPT) 21 12-78 U/L Alkaline Phosphatase 208 H 50-136 U/L Total Protein 6.8 6.0-8.3 g/dL Albumin 1.9 L 3.5-5.0 g/dL DIAGNOSTICS / RADIOLOGY: PATIENT: MARTY BARRON ACCT: [id number] LOC: [facility] U: [id number] AGE/SX: 35/M ROOM: [facility] RE04/19/[address]: TITA PETERSON MD : 1990 BED: 1 DIS: STATUS: ADM IN TLOC: SPEC: [id number] CHRYSTAL: 04/21/25 STATUS: COMP REQ: [id number] RECD: 04/21/25 [facility] [address]: KENNY SIMEON SOURCE: BLOOD ENTR: 04/21/25 [facility] DR: TITA PETERSON MD SPDC: BLOOD AISHA,KRISSY GALLEGO MD ORDERED: AERO ID & SENS Procedure Result Paulina Date-Time AEROBIC ID & SENSITIVITIES Final 04/23/25-0721 [facility] DESCRIPTION: DAY 1: GRAM POSITIVE COCCI IN CLUSTERS COAGULASE NEGATIVE STAPHYLOCOCCUS AEROBIC BOTTLE IDENTIFICATION AND SENSITIVITY TO FOLLOW STAPHYLOCOCCUS EPIDERMIDIS PRATIBHA EPIDER M.I.C. RX --------- ---- CLINDAMYCIN >2 R ERYTHROMYCIN >4 R GENTAMICIN <=4 S VANCOMYCIN 1 S OXACILLIN GLENN >2 R RIFAMPIN <=1 S TETRACYCLINE 8 I TRIMETHOPRIM/SUFLAMETHOXAZOLE <=0.5/9.5 S ASSESSMENT: Hypoxic respiratory failure, requiring oxygen support. Staphylococcus epidermidis bacteremia, which is a contaminant. Leukocytosis. Right knee osteoarthritis. Bilateral pulmonary nodules consistent with metastatic disease. Small-bowel obstruction. Acute renal failure, improving. Morbid obesity. Recent Colorectal mass with resection and colostomy creation. PLAN: Continue cefepime. Continue metronidazole. Continues with NG tube to low intermittent suction. Continue oxygen support. Oncologist following patient. Continue GI prophylaxis. Continue pain management. Avoid nephrotoxic medications. This case was reviewed and discussed with my supervising physician Dr. Richards and the above assessment and plan was formulated and agreed upon. ATTESTATION BY PHYSICIAN I have seen and examined the patient. I reviewed the documentation, medical decision making, and treatment plan as noted by the mid-level provider above. I agree with the findings and plan of care. JULIANNA RICHARDS MD, [facility] Apr 25, 2025 22:03
--- NOTE | 2025-04-25 22:31 | HMCIMG ---
EXAM: CR Chest, 1 View. CLINICAL HISTORY: Hypoxic respiratory failure. TECHNIQUE: Single anteroposterior portable chest radiograph. COMPARISON: CR ??? ABD 1 View ??? 04/24/2025, 11:44 EDT. CR ??? Chest 1 View ??? 04/24/2025, 05:16 EDT. FINDINGS: LUNGS: Bilateral basal lung consolidation and mild atelectasis noted. Inhomogeneous patchy airspace opacities present in bilateral upper lobes showing interval progression compared with prior study. PLEURAL SPACES: No definite pleural effusion or pneumothorax. MEDIASTINUM: Cardiomediastinal silhouette within normal limits. BONES: No acute osseous abnormality identified. IMPRESSION: * Bilateral basal consolidation and mild atelectasis. * Interval progression of patchy airspace opacities in bilateral upper lobes compared with 04/24/2025, consistent with evolving infective/inflammatory process. /[place]
--- NOTE | 2025-04-25 23:22 | PN ---
PROGRESS NOTE Date of Service: Apr 25, 2025 Time of Service: 23:11 SUBJECTIVE: 35 year old morbidly obese male with a past medical history of Colon mass s/p resection with colostomy placement diagnosed with small bowel obstruction ,severe sepsis and multisystem dysfunction .CT chest/Abdomen/Pelvis revealed Left iliac fossa Spigelian hernia containing small and large bowel with mechanical small bowel obstruction.New right upper lobe spiculated infiltrative mass measuring 5.4 x 4.6 cm infiltrating mediastinal pleura and albumin in the right main pulmonary artery , Bulky mediastinal lymphadenopathy with the largest node measuring 4 cm involving the right paratracheal, prevascular, and subcarinal stations and Multiple bilateral spiculated pulmonary nodules consistent with metastatic disease progression was also seen. Patient is evaluated at the bedside . He is being treated conservatively for small bowel obstruction and reports improvement of his symptoms. Patient with moderately differentiated adenocarcinoma rectum, status post decompressive transverse loop colostomy and colostomy bag placement(6.2.25).His Labs today show WBC 04059, Hb 9.9, plt 225k..CEA is 6714. Diet advanced to clear liquids. Patient is pending CT guided pulmonary nodule biopsy by IR. REVIEW OF SYSTEMS CONSTITUTIONAL: Denies fever, chills, or fatigue. HEAD/FACE: No signs of trauma. EENT: Denies eye pain, blurred vision, double vision, or light sensitivity. RESPIRATORY: Denies shortness of breath, cough, wheezing CARDIOVASCULAR: Denies chest pain, palpitation, syncope GASTROINTESTINAL/ABDOMINAL: Denies abdominal pain, constipation, diarrhea, nausea or vomiting GENITOURINARY: Denies dysuria or hematuria. MUSCULOSKELETAL: Denies joint pain, tenderness, or trauma. INTEGUMENTARY: Denies rash or itchiness NEUROLOGICAL/PSYCH: Denies anxiety, depression, heat or cold intolerance. PHYSICAL EXAM EYES: Anicteric. Pupils equal and reactive. HENT: No oral thrush seen, moist Oral mucosa NECK: Supple, no JVD or thyromegaly. LUNGS: Good air entry. No rales, no rhonchi. CARDIOVASCULAR: S1, S2 regular. No murmur heard. ABDOMEN: Soft, non tender, bowel sounds present, no organomegaly CENTRAL NERVOUS SYSTEM: Awake, alert, oriented x 3. No focal deficits. SKIN: No rashes, no swelling. LYMPHATICS: No peripheral lymphadenopathy MUSCULOSKELETAL: No joint swelling, erythema or tenderness. EXTREMITIES: No cyanosis or clubbing BACK: No deformity, no pressure ulcer. GENITOURINARY: No dysuria or hematuria Vital Signs (last 8hr) Date Time Temp Pulse Resp B/P (MAP) Pulse Ox O2 Delivery O2 Flow Rate FiO2 04/25/25 22:53 98.1 107 18 117/72 94 Nasal Cannula 2.0 04/25/25 19:01 98.1 99 18 129/75 98 Room Air 04/25/25 18:42 95 18 04/25/25 18:41 95 18 N/Cannula Low lpm 2.0 04/25/25 16:04 98.1 100 20 124/80 94 Nasal Cannula 2.0 LABS: Laboratory: Test 04/25/25 03:31 Range/Units White Blood Count 15.1 H 4.8-10.8 K/uL Red Blood Count 4.31 L 4.50-6.20 MIL/uL Hemoglobin 9.9 L 14.0-18.0 g/dL Hematocrit 33.4 L 42-54 % Mean Corpuscular Volume 77.5 L 79-99 fL Mean Corpuscular Hemoglobin 23.0 L 27.0-33.0 pg Mean Corpuscular Hemoglobin Concent 29.6 L 32.0-36.0 g/dL Red Cell Distribution Width 17.9 H 11.0-15.5 % Platelet Count 225 130-400 K/uL Mean Platelet Volume 11.1 H 7.5-10.5 fL Immature Granulocyte % (Auto) 1.2 H 0-1 % Neutrophils (%) (Auto) 82.0 H 40.0-77.0 % Lymphocytes (%) (Auto) 6.6 L 21.0-51.0 % Monocytes (%) (Auto) 8.7 3.0-13.0 % Eosinophils (%) (Auto) 1.2 0.0-8.0 % Basophils (%) (Auto) 0.3 0.0-5.0 % Neutrophils # (Auto) 12.4 H 1.8-7.7 K/uL Lymphocytes # (Auto) 1.0 1.0-4.8 K/uL Monocytes # (Auto) 1.3 H 0.1-1.0 K/uL Eosinophils # (Auto) 0.18 0.00-0.70 K/uL Basophils # (Auto) 0.05 0.00-0.20 K/uL Absolute Immature Granulocyte (auto 0.18 0-1 K/uL Nucleated Red Blood Cells 0.0 0.0-0.19 % Sodium Level 151 H 136-145 mmol/L Potassium Level 3.7 3.5-5.1 mmol/L Chloride Level 109 101-111 mmol/L Carbon Dioxide Level 31 21-32 mmol/L Blood Urea Nitrogen 26 H 7-18 mg/dL Creatinine 0.9 0.5-1.3 mg/dL Glomerular Filtration Rate Calc 114 >90 mL/min Random Glucose 122 H 70-105 mg/dL Lactic Acid Level 1.7 0.8-2.5 mmol/L Total Calcium 8.7 8.5-10.1 mg/dL Magnesium Level 2.10 1.80-2.40 mg/dL Total Bilirubin 1.3 H 0.2-1.0 mg/dL Aspartate Amino Transf (AST/SGOT) 28 10-37 U/L Alanine Aminotransferase (ALT/SGPT) 21 12-78 U/L Alkaline Phosphatase 208 H 50-136 U/L Total Protein 6.8 6.0-8.3 g/dL Albumin 1.9 L 3.5-5.0 g/dL DIAGNOSTICS / RADIOLOGY: [ ] IMPRESSION 1.Rectal adeno carcinoma s/p resection and colostomy bag placement 2.Multiple pulmonary nodules and mediastinal nodes suggestive of metastasis 3.Sepsis 4.Acute Iron deficiency anemia with drop in hemoglobin PLAN 1.Pathology report from rectal mass biopsy - moderately differentiated adenocarcinoma . The new pulmonary nodules and mediastinal lymphadenopathy as per CT scan indicate the possibility of metastatic disease. CEA is 6714. We will request pulmonary nodule biopsy by IR . 2.Peripheral bloood smear shows microcytic hypochromic anemia consistent with iron deficiency anemia . There is teardrop cell, pelger huet cell and rouleaux formation .Increased number of WBCs observed with neutrophilia and hypersegmented neutrophils suggestive of underlying infection . Band cells observed. Platelet morphology and count within normal limits . 3. There is hypersegmented neutrophil. This patient will benefit from IV Iron, Folic acid 1 mg daily and Vitamin B12 1000 mcg daily. 4. Pending Lung nodule biopsy by IR .Plan for genetic phenotyping for targeted therapy if feasible . ATTESTATION BY PHYSICIAN I have seen and examined the patient. I reviewed the documentation, medical decision making, and treatment plan as noted by the resident physician above. I agree with the findings and plan of care. KRISTIAN CASTELLON MD, MD Apr 25, 2025 23:22
[2025-04-26] VITALS (19 sets, daily range): BP systolic 107–142; BP diastolic 65–87; PULSE 68–110; RESP 18–24; TEMP 97.5–99.2; O2SAT 89–98
[2025-04-26 03:46] LABS: IMMATURE GRANULOCYTE ABSOLUTE 0.32 K/uL (0-1); NUCLEATED RED BLOOD CELLS 0.0 % (0.0-0.19); PLATELET COUNT (AUTO) 202 K/uL (130-400); RED BLOOD CELL COUNT(AUTO) 4.35 MIL/uL (4.50-6.20); RED CELL DISTRIBUTION WIDTH 18.0 % (11.0-15.5); WHITE BLOOD COUNT (AUTO) 15.8 K/uL (4.8-10.8)
[2025-04-26 04:00] LABS: ASPARTATE AMINOTRANSFERASE 29.0 U/L (10-37); CREATININE 0.8 mg/dL (0.5-1.3); GLOMERULAR FILTR. RATE CALC 118.0 mL/min (>90); GLUCOSE,RANDOM 129.0 mg/dL (70-105); SODIUM SERUM 144.0 mmol/L (136-145); TOTAL PROTEIN, SERUM 6.6 g/dL (6.0-8.3); UREA NITROGEN, BLOOD 24.0 mg/dL (7-18)
[2025-04-26 04:07] LABS: INR 1.19 (0.85-1.15)
--- NOTE | 2025-04-26 08:50 | NUR ---
TRANSFER Patient going to Radiology for procedure. Will give medications once patient is back from procedure.
--- NOTE | 2025-04-26 10:00 | NUR ---
CT GD LT RIB BX PROCEDURE PERFORMED BY DR Nandini NG. PUNCTURE SITE RT UPPER CHEST AND PATIENT TOLERATED PROCEDURE WELL. SPECIMEN X 3 COLLECTED AND SENT TO LAB. END OF PROCEDURE AT 0940. BIOPSY NEEDLE REMOVED AND DRESSING APPLIED. NO BLEEDING NOTED. REPORT GIVEN TO HERLINDA GOTTI AND PATIENT TRANSPORTED TO [facility] VIA BED AT 1000. AAO X3 WITH NO C/O PAIN.
[2025-04-26] MEDS: MIDAZOLAM HCL 1 MG/ML 2ML VIAL ONE (10:08)
--- NOTE | 2025-04-26 10:33 | PN ---
[facility] PROGRESS NOTE Date Patient Seen: Apr 26, 2025 Time of Visit: 10:32 Supervising Physician: Dr. Sonny Jha Inpatient Consults: Dr. Nguyen, Dr. Abad, Dr. Henry, Dr. Johnson PROBLEM LIST: Severe sepsis with MODS, resolved Leukocytosis Gram-positive cocci bacteremia Status post left rib biopsy by IR on 04/26/2025 New right upper lobe spiculated infiltrative mass measuring 5.4 x 4.6 cm infiltrating mediastinal pleura and albumin in the right main pulmonary artery Bulky mediastinal lymphadenopathy with the largest node measuring 4 cm involving the right paratracheal, prevascular, and subcarinal stations Multiple bilateral spiculated pulmonary nodules consistent with metastatic disease progression Bilateral marked diffuse adrenal enlargement likely metastatic or hyperplastic Left iliac fossa 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 INTERVAL HISTORY: Patient was transferred out of ICU overnight. Currently on 02@3LPM via NC. S/P left rib biopsy by IR. Patient is sleepy but able to answer all questions and follow commands. Mother at bedside. WBC increased to 15.8. Continues on IV ABX Cefepime and Flagyl. Denies any chest pain, abdominal pain, nausea or vomiting. No overnight issues per nursing. PLAN Follow oncology recommendations Await for biopsy results Maintain O2 sats above 90%, wean off as tolerated continue PUD and DVT PPX Follow general surgery recommendations REVIEW OF SYSTEMS: 12 point ROS reviewed with patient. Pertinent positives mentioned above. Otherwise negative. PHYSICAL EXAM: GENERAL: alert, weak, awake oriented x 3 HEENT: EOMI, Sclera non icteric, moist mucosa NC NECK: Supple, no JVD, trachea midline LUNGS: Diminished breath sounds bilaterally. No wheezes HEART: controlled rate and rhythm. Normal S1 and S2, without murmurs ABD: morbidly obese Abdomen soft, nontender. Bowel sounds hypoactive EXT: No clubbing cyanosis or edema NEURO: Alert and oriented to person, follows commands Vital Signs (last 8hr) Date Time Temp Pulse Resp B/P (MAP) Pulse Ox O2 Delivery O2 Flow Rate FiO2 04/26/25 07:53 98.2 105 18 122/81 97 Nasal Cannula 3.0 04/26/25 06:55 106 24 04/26/25 06:53 106 24 N/Cannula Low lpm 2.0 04/26/25 03:57 102 22 BIPAP 40 04/26/25 03:19 99.1 103 21 117/80 95 BIPAP LABS: Hematology Labs: Test 04/26/25 03:17 Range/Units White Blood Count 15.8 H 4.8-10.8 K/uL Red Blood Count 4.35 L 4.50-6.20 MIL/uL Hemoglobin 10.0 L 14.0-18.0 g/dL Hematocrit 34.1 L 42-54 % Mean Corpuscular Volume 78.4 L 79-99 fL Mean Corpuscular Hemoglobin 23.0 L 27.0-33.0 pg Mean Corpuscular Hemoglobin Concent 29.3 L 32.0-36.0 g/dL Red Cell Distribution Width 18.0 H 11.0-15.5 % Platelet Count 202 130-400 K/uL Mean Platelet Volume 10.7 H 7.5-10.5 fL Immature Granulocyte % (Auto) 2.0 H 0-1 % Neutrophils (%) (Auto) 79.2 H 40.0-77.0 % Lymphocytes (%) (Auto) 8.1 L 21.0-51.0 % Monocytes (%) (Auto) 9.2 3.0-13.0 % Eosinophils (%) (Auto) 1.1 0.0-8.0 % Basophils (%) (Auto) 0.4 0.0-5.0 % Neutrophils # (Auto) 12.5 H 1.8-7.7 K/uL Lymphocytes # (Auto) 1.3 1.0-4.8 K/uL Monocytes # (Auto) 1.5 H 0.1-1.0 K/uL Eosinophils # (Auto) 0.18 0.00-0.70 K/uL Basophils # (Auto) 0.06 0.00-0.20 K/uL Absolute Immature Granulocyte (auto 0.32 0-1 K/uL Nucleated Red Blood Cells 0.0 0.0-0.19 % Chemistry Labs: Test 04/26/25 03:17 04/25/25 03:31 Range/Units Sodium Level 144 136-145 mmol/L Potassium Level 3.6 3.5-5.1 mmol/L Chloride Level 105 101-111 mmol/L Carbon Dioxide Level 33 H 21-32 mmol/L Blood Urea Nitrogen 24 H 7-18 mg/dL Creatinine 0.8 0.5-1.3 mg/dL Glomerular Filtration Rate Calc 118 >90 mL/min Random Glucose 129 H 70-105 mg/dL Total Calcium 8.5 8.5-10.1 mg/dL Magnesium Level 2.00 1.80-2.40 mg/dL Total Bilirubin 1.1 H 0.2-1.0 mg/dL Aspartate Amino Transf (AST/SGOT) 29 10-37 U/L Alanine Aminotransferase (ALT/SGPT) 15 # 12-78 U/L Alkaline Phosphatase 178 H 50-136 U/L Total Protein 6.6 6.0-8.3 g/dL Albumin 1.8 L 3.5-5.0 g/dL Lactic Acid Level 1.7 0.8-2.5 mmol/L Coagulation Labs: Test 04/26/25 03:17 Range/Units Prothrombin Time 12.4 H 9.6-11.6 SEC Prothromb Time International Ratio 1.19 H 0.85-1.15 Activated Partial Thromboplast Time 29.2 26.3-35.5 SEC DIAGNOSTICS / RADIOLOGY RESULTS: NA PLAN NEURO: Minimize central acting medications as possible. Maintain fall precautions, adequate lighting during the day PULMONARY: Supplemental 02 as needed. Maintain aspiration precautions at all times CARDIOVASCULAR: Follow hemodynamics. Vital signs per facility protocol GI & NUTRITION: Continue with nutritional support. Continue stool softeners and laxatives as needed. KIDNEYS & ELECTROLYTES: Strict monitoring of intake, output and overall fluid balance. Avoid nephrotoxic medications to the extent possible. Medications to be dosed according to renal function. Monitor electrolytes and replace as needed ENDOCRINE: Maintain blood glucose between 100-180 at all times. Hypoglycemia protocol in place INFECTIOUS DISEASE: Trend temperature, WBC and procalcitonin level Follow cultures, deescalate antibiotics as soon as possible. Panculture if new onset fever ONCOLOGY/HEMATOLOGY/COAGULATION: Monitor for s/s of bleeding Monitor hemoglobin, coagulation studies as needed SKIN: Pressure ulcer prevention per facility protocol Specialty mattress ORTHO/REHAB: Continue PT/OT Prophylaxis: Continue GI and DVT prophylaxis Code Status: Full Resuscitation Disposition: Per primary team DORCAS DUBON Apr 26, 2025 10:33
--- NOTE | 2025-04-26 11:16 | HMCIMG ---
PERCUTANEOUS CT-GUIDED BIOPSY OF left anterior rib mass: CLINICAL HISTORY: This is a [id number] Male with multiple lesion seen in the lungs there is an expansile mass seen in the left anterior rib for CT-guided biopsy of left anterior rib mass. The risk and benefit was explained to the patient. The risks include infection and possible bleed. The patient consented to the procedure. PROCEDURE: Patient was placed in supine position. Patient was given IV conscious sedation with 2 mg of Versed and 50 MCG of fentanyl.. Under CT guidance left anterior rib lesion was localized. After sterile prep and drapa, using 1% xylocaine for local anesthetic, using a 18-gauge Bard gun, a total of 3 core biopsies were obtained. The specimen was sent for histology and cell block. The patient tolerated the procedure and post-biopsy demonstrated no bleed. There is no evidence of any pneumothorax. IMPRESSION: PERCUTANEOUS CT-GUIDED BIOPSY OF left anterior rib WITH SPECIMENS SENT FOR Histology and cell block.. THE PATIENT TOLERATED PROCEDURE WELL. PATHOLOGY REPORT IS PENDING. If this path report does not demonstrate malignancy I would recommend lung biopsy
--- NOTE | 2025-04-26 11:56 | PN ---
[facility] PROGRESS NOTE Date of Service: Apr 26, 2025 Time of Service: 11:53 SUBJECTIVE: 04/20 the patient has been seen and examined at bedside, case discussed with the RN, no acute events overnight, the time of my visit, the patient is awake, following commands, blood pressure 140/90, afebrile, saturating normal on room air. The patient is morbidly obese, he uses a CPAP at home, currently CPAP at bedside during my visit. WBC 14.0, hemoglobin 10.4, hematocrit 34.8, platelet count of 305. CMP shows sodium 141, potassium 3.5, BUN 70, creatinine 0.9, iron level of 25. X-ray of the knee showing moderate to severe three, power mental right knee osteoarthritis, predominantly in the lateral compartment, with small joint effusion. No acute fracture. Orthopedic physician consultation requested, we will follow input and recommendation. MRI of the right knee requested, however due to morbid obesity, might not be able to do it. Discussed with the mother is at the bedside, all questions answered, in agreement. 04/21 patient has been seen and examined at bedside, case discussed with the RN, no acute events overnight, the time my visit he is awake, following commands, admits mild dry nonproductive cough, spiked fever 102.6. Denied chest pain, shortness shortness for breath, no nausea, no vomiting, no abdominal discomfort. The patient has a colostomy bag, on examination, liquid stool noted. WBC slowly trending down at 12.7, hemoglobin stable 11.6. Magnesium 1.7. Added doxycycline 100 mg IV q.12 hours. Follow serology to include SARS antigen, influenza and rapid strep. We will give magnesium sulfate 2 g IV x1. We will order GI stool panel. Patient is scheduled for MRI to the right knee today, continue lidocaine patch, discussed with the orthopedic physician today, we will follow input and recommendation. 04/22 patient is seen and examined at bedside, discussed with the RN. Patient currently feels nauseated. He admits mild discomfort to the right lower quadrant. BP 135/77, mildly tachycardic at 108, saturating normal on room air. Maximum temperature last 24 hours 102.7. CBC shows a hemoglobin of 11.6, hematocrit 35.7, platelet count of 276, with a platelet count of 23.8. Creatinine 2.1. MRI of the right knee shows tricompartmental osteoarthritis with osteophytosis and diffuse cartilage loss, medial and lateral meniscal with complex degenerative tear involving posterior horns and bodies, meniscal tear severity grade 3, full-thickness chondral defect of the lateral femoral condyle, with a underlying subchondral edema, small reactive joint effusion with mild synovitis. We will upgraded the patient to the PCU, LR at 50 mL/hours, follow repeat CBC, CMP and magnesium level. Continue Rocephin and doxycycline IV. We will order a CT of the abdomen and pelvis without contrast to rule out intra- abdominal acute pathology. Orthopedic input noted and appreciated, patient with bad arthritis, we will finally benefit from knee replacement, however considering his morbid obesity, it is not indicated right now. Recommended co nservative approach. Mother at bedside, all questions answered, updated, in agreement with plan of care. 04/23 patient is seen and examined at bedside, discussed with the RN, no acute events overnight, patient upgraded to the ICU yesterday due to sepsis and developing small bowel obstruction. Today the patient is awake, following commands, he is NPO, NG tube to intermittent suction, BP 120/76, heart rate of 111, saturating 96% 3 L nasal cannula, temperature 98.4. WBC of 27.6, hemoglobin 10.6, hematocrit 35.5, platelet count 240, creatinine improved to 1.2. Septic workup with blood culture positive for Staphylococcus epidermidis. Echocardiogram and chest x-ray pending. Patient will remain admitted to the ICU, continue broad-spectrum IV antibiotics, we will follow surgical input recommendation. Continue to follow critical Care and ID input and recommendation. And we will update the mother regarding results of CT of the abdomen pelvis and further plan of care when she is present in the room. CT abdomen and pelvis reviewed, as follows: * Patient is undergoing mass evaluation. * Interval progression since 22 April 2025 with a new right upper lobe spiculated infiltrative mass measuring 5.4 ??? 4.6 cm infiltrating mediastinal pleura and abutting the right main pulmonary artery. * Bulky mediastinal lymphadenopathy with largest node measuring 4 cm, involving right paratracheal, prevascular, precarinal, and subcarinal stations, increased since prior study. * Multiple bilateral spiculated pulmonary nodules (1???2.5 cm), consistent with metastatic disease progression. * Bilateral marked diffuse adrenal enlargement (Right 5.9 ??? 3.6 cm, Left 7.6 ??? 5.4 cm), likely metastatic or hyperplastic. 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 * Degenerative thoracolumbar spondylosis with L4 vertebral body wedging (30???40% height loss), unchanged. * Comparison is made with the exam dated 22 April 2025. Overall findings indicate worsening metastatic disease with new primary and gloria lesions and mechanical bowel obstruction requiring clinical and surgical correlation. Recommendations include oncologic evaluation and PET-CT staging, alongside urgent surgical consultation for bowel obstruction. 04/24 patient is seen and examined at bedside, discussed with the RN, no acute events overnight, patient downgraded from the ICU to the PCU, he remains NPO, NG tube connected to intermittent suction, output in the last 12 hours 200 mL. BP 146/150, heart rate of 101, afebrile, saturating 96-97% on nasal cannula. CBC shows a hemoglobin of 9.9, hematocrit 33.5, platelet count of 235, with WBC of 21.3. CMP with sodium 146, potassium 3.8, BUN of 18, creatinine 0.9, magnesium 1.8. Blood culture 04/21/2025 positive for Staphylococcus epidermidis. Repeat blood cultures 04/23/2025 no growth after 24 hours echocardiogram 04/23/2025 LVEF 50-55%, no left ventricle thrombus, no intracardiac masses, no valvular vegetations. Today chest x-ray pending. Patient will remain admitted to the PCU, NPO, intermittent suction, continue to follow surgical input recommendation, continue broad-spectrum IV antibiotics, follow WBC in a.m.. Follow KUB. I HAVE CONTACTED THE DEPARTMENT OF MEDICAL RECORDS [facility], SPOKE WITH ZENA AT PHONE NUMBER [phone], I HAVE REQUESTED MEDICAL RECORDS. WE WILL FOLLOW UP. 04/25 patient is seen and examined at bedside, case discussed with the RN, no acute events overnight, he remains comfortably in bed, NPO, NG tube to intermittent suction, he is awake, following commands, BP 128/90, area of 101, afebrile. Still feels distended. On examination colostomy bag, enema output noted. KUB pending. KUB from 04/24/2025 showing markedly dilated small bowel loops up to 5.6 cm, consistent with distal small-bowel obstruction, no pneumoperitoneum, pneumatosis intestinalis or portal venous gas. I received medical records from [facility], patient was admitted on 11/19/2024 and discharged 12/08/2024. Areolar in the hospital patient underwent exploratory laparoscopy, laparotomy and creation of transverse loop colostomy 11/28/2024. Patient was evaluated by oncologist Braulio Bell. 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 Per my discussion with the mother, from [facility] the patient was discharged to [facility] to recover and from there he went home. Patient has not had a follow up appointment with the general surgeon or oncologist after that. We have requested Oncology consultation here during this admission. Pathology report from rectal biopsy shows moderately differentiated adenocarcinoma, then new pulmonary nodules and mediastinal lymphadenopathy as per CT scan indicates the possibility of metastatic disease. CEA is [id number]. Re quested pulmonary nodule biopsy by IR. Patient will remain admitted to the PCU, we will continue NG tube to intermittent suction, NPO, TPN, follow surgical input and recommendation. Follow repeat KUB. Mother at bedside, updated, all questions answered. Plan of care discussed with the patient as well, in agreement. 04/26 patient is seen and examined at bedside, discussed with the RN, no acute events overnight, patient is status post CT-guided biopsy of left anterior rib mass, 04/26/2025, tolerated the procedure well. At the time of my visit, he is awake, following commands, denied chest pain, shortness shortness for breath, no nausea, no vomiting. Colostomy bag full of air. No stool or liquid noted. Plan is for the patient to start clear liquid diet and advanced as tolerated. We will follow results of pathology. Continue to follow a.m. labs. Mother at bedside, updated. REVIEW OF SYSTEMS CONSTITUTIONAL: Denies fevers, chills, or night sweats. No unintentional weight loss reported. NEUROLOGICAL: Denies headache, amaurosis fugax, motor weakness, sensory deficit, vertigo/spinning sensation, gait abnormalities, or tremors. ENT: No hearing loss, otalgia, otorrhea, rhinitis, rhinorrhea, hoarseness, or sore throat. CARDIOVASCULAR: Denies any exertional angina, dyspnea on exertion, orthopnea, paroxysmal nocturnal dyspnea, palpitations, life-threatening arrhythmias, claudication. PULMONARY: Denies any shortness of breath, cough, phlegm/sputum, hemoptysis, pleuritic chest pain. SLEEP: Denies morning headaches, daytime somnolence or napping. Denies diffi culty falling asleep, staying asleep, waking from sleep. Denies knowledge of snoring. GASTROINTESTINAL: Denies any type of dysphagia to either liquids or solids. Denies nausea, vomiting, pyrosis, early satiety, abdominal pain, diarrhea, constipation, or changes in stool consistency or caliber. Denies coffee-ground emesis, hematemesis, hematochezia, or melanotic stools. GENITOURINARY: Denies frequency, urgency, nocturia, hematuria or incontinence (Storage/Irritative symptoms.) Low urinary stream, straining to void, urinary intermittency or hesitancy, splitting of the voiding stream, terminal dribbling. ENDOCRINOLOGIC: Denies polyuria, polydipsia, polyphagia or heat/cold int olerances. HEMATOLOGIC: Denies thrombophilia/previous clots, or coagulopathy/bleeding disorders. ONCOLOGIC: Denies personal history of malignancy. DERMATOLOGIC: Denies rashes or pruritus. PSYCHIATRIC: Denies any suicidal or homicidal ideation. Denies hallucinations. PHYSICAL EXAM GENERAL APPEARANCE: Patient awake, following commands, NG tube to intermittent suction. NEUROLOGICAL: Cranial nerves II-XII grossly intact. Motor is 5/5 in bilateral upper and lower extremities proximal to distal. No sensory deficits. HEENT: Face is symmetric. Pupils are equal and reactive. Extraocular movements are intact. NECK: Supple. No JVD. No thyromegaly. No submental, submandibular, pre- /postauricular, occipital or supraclavicular lymphadenopathy. CHEST: Normal chest expansion. No Telemetry. LUNGS: Absence of any rales, rhonchi or any wheezing. CARDIOVASCULAR: Regular. S1 and S2 normal. No appreciable rubs, murmurs or gallops. ABDOMEN: Liquid output colostomy bag noted. : Deferred. No Doe. EXTREMITIES: Mild swelling to the right knee area, lidocaine patch in place. SKIN: No skin breakdown. Vital Signs (last 8hr) Date Time Temp Pulse Resp B/P (MAP) Pulse Ox O2 Delivery O2 Flow Rate FiO2 04/26/25 10:45 94 Nasal Cannula* 2 28 04/26/25 10:30 98.2 107 18 119/83 94 Nasal Cannula 3.0 04/26/25 07:53 98.2 105 18 122/81 97 Nasal Cannula 3.0 04/26/25 06:55 106 24 04/26/25 06:53 106 24 N/Cannula Low lpm 2.0 04/26/25 03:57 102 22 BIPAP 40 LABS: Laboratory: Test 04/26/25 03:17 04/25/25 03:31 Range/Units White Blood Count 15.8 H 4.8-10.8 K/uL Red Blood Count 4.35 L 4.50-6.20 MIL/uL Hemoglobin 10.0 L 14.0-18.0 g/dL Hematocrit 34.1 L 42-54 % Mean Corpuscular Volume 78.4 L 79-99 fL Mean Corpuscular Hemoglobin 23.0 L 27.0-33.0 pg Mean Corpuscular Hemoglobin Concent 29.3 L 32.0-36.0 g/dL Red Cell Distribution Width 18.0 H 11.0-15.5 % Platelet Count 202 130-400 K/uL Mean Platelet Volume 10.7 H 7.5-10.5 fL Immature Granulocyte % (Auto) 2.0 H 0-1 % Neutrophils (%) (Auto) 79.2 H 40.0-77.0 % Lymphocytes (%) (Auto) 8.1 L 21.0-51.0 % Monocytes (%) (Auto) 9.2 3.0-13.0 % Eosinophils (%) (Auto) 1.1 0.0-8.0 % Basophils (%) (Auto) 0.4 0.0-5.0 % Neutrophils # (Auto) 12.5 H 1.8-7.7 K/uL Lymphocytes # (Auto) 1.3 1.0-4.8 K/uL Monocytes # (Auto) 1.5 H 0.1-1.0 K/uL Eosinophils # (Auto) 0.18 0.00-0.70 K/uL Basophils # (Auto) 0.06 0.00-0.20 K/uL Absolute Immature Granulocyte (auto 0.32 0-1 K/uL Nucleated Red Blood Cells 0.0 0.0-0.19 % Prothrombin Time 12.4 H 9.6-11.6 SEC Prothromb Time International Ratio 1.19 H 0.85-1.15 Activated Partial Thromboplast Time 29.2 26.3-35.5 SEC Sodium Level 144 136-145 mmol/L Potassium Level 3.6 3.5-5.1 mmol/L Chloride Level 105 101-111 mmol/L Carbon Dioxide Level 33 H 21-32 mmol/L Blood Urea Nitrogen 24 H 7-18 mg/dL Creatinine 0.8 0.5-1.3 mg/dL Glomerular Filtration Rate Calc 118 >90 mL/min Random Glucose 129 H 70-105 mg/dL Total Calcium 8.5 8.5-10.1 mg/dL Magnesium Level 2.00 1.80-2.40 mg/dL Total Bilirubin 1.1 H 0.2-1.0 mg/dL Aspartate Amino Transf (AST/SGOT) 29 10-37 U/L Alanine Aminotransferase (ALT/SGPT) 15 # 12-78 U/L Alkaline Phosphatase 178 H 50-136 U/L Total Protein 6.6 6.0-8.3 g/dL Albumin 1.8 L 3.5-5.0 g/dL Lactic Acid Level 1.7 0.8-2.5 mmol/L Current Medications Medications (Trade) Dose Ordered Sig/Checo Route PRN Reason Start Time Stop Time Status Last Admin Dose Admin Acetaminophen (TYLenol 325MG TAB) 650 mg Q6H PRN PO FEVER/pain 1-3 04/19/25 22:00 05/19/25 21:59 04/21/25 02:20 650 MG Cefepime HCl (MAXipime 2 gm vial) 2 gm Q8H IVPB 04/22/25 13:00 05/02/25 12:59 04/26/25 05:12 2 GM Ceftriaxone Sodium (ROCEphine 1G INJ) 1 gm Q24H IVPB 04/20/25 10:00 04/22/25 12:41 DC 04/22/25 10:53 1 GM Dextrose 1,000 ml @ 50 mls/hr Q20H IV 04/25/25 08:00 04/25/25 16:53 DC 04/25/25 10:38 100 MLS/HR Doxycycline Hyclate 250 ml @ 125 mls/hr Q12H IV 04/21/25 08:30 04/22/25 12:41 DC 04/22/25 08:14 125 MLS/HR Enoxaparin Sodium (Lovenox) 40 mg DAILY SQ 04/20/25 09:00 04/22/25 20:00 DC 04/22/25 08:14 40 MG Enoxaparin Sodium (Lovenox) 40 mg Q12H SQ 04/22/25 21:00 05/20/25 08:59 04/26/25 10:52 40 MG Famotidine (Pepcid 20mg Tab) 20 mg DAILY PO 04/20/25 09:00 05/20/25 08:59 04/26/25 10:50 20 MG Furosemide (LASix 20MG VIAL) 20 mg Q8H IV 04/24/25 19:00 04/25/25 03:01 DC 04/25/25 03:06 20 MG Hydralazine HCl (APRESOLine 20MG INJ) 5 mg Q6H PRN IV For:SBP above 160;DBP above 90 04/20/25 16:00 05/20/25 15:59 Hydralazine HCl (APRESOLine 20MG INJ) 10 mg Q6H PRN IV For:SBP above 160;DBP above 90 04/19/25 22:00 04/20/25 10:52 DC Hydromorphone HCl (DiLAUDid 0.5MG INJ) 0.5 mg Q4H PRN IVP SEVERE PAIN (7-10) 04/22/25 20:00 04/27/25 19:59 Iron Sucrose (VenoFER) 200 mg DAILY IV 04/26/25 09:00 04/28/25 11:00 04/26/25 10:50 200 MG Ketorolac Tromethamine (toRADol) 15 mg Q6H PRN IV MODERATE PAIN (4-6) 04/20/25 11:00 04/22/25 19:58 DC 04/20/25 22:08 15 MG Labetalol HCl (TRANdate 20MG SYG) 10 mg Q6H PRN IV SUSTAINED HR >120 04/23/25 00:00 05/23/25 00:00 Lactated Ringer's 1,000 ml @ 50 mls/hr Q20H IV 04/21/25 12:30 04/25/25 07:47 DC 04/24/25 02:58 75 MLS/HR Lactated Ringer's 1,000 ml @ 100 mls/hr Q10H IV 04/19/25 22:00 04/20/25 10:52 DC 04/21/25 12:40 100 MLS/HR Lactulose (Constulose 20gm/ 30ml Udcup) 20 gm BID PRN PO CONSTIPATION 04/19/25 22:00 05/19/25 21:59 Lidocaine (Lidocaine Patch 4%) 1 each DAILY TP 04/21/25 09:00 05/21/25 08:59 04/26/25 10:50 1 EACH Magnesium Sulfate 50 ml @ 0 mls/hr PROTOCOL IV 04/21/25 08:30 05/21/25 08:29 04/24/25 06:11 25 MLS/HR Metronidazole/ Sodium Chloride 100 ml @ 100 mls/hr Q8H6 IVPB 04/22/25 14:00 05/02/25 13:59 04/26/25 06:24 100 MLS/HR Morphine Sulfate (morPHINE 4MG SYG) 4 mg Q4H PRN IVP SEVERE PAIN (7-10) 04/19/25 22:00 04/20/25 10:52 DC Ondansetron HCl (zoFRAN 4MG INJ) 4 mg Q6H PRN IV NAUSEA/VOMITING 04/19/25 22:00 05/19/25 21:59 04/24/25 22:19 4 MG Promethazine HCl (Phenergan) 12.5 mg Q8H5 PRN IM NAUSEA/VOMITING 04/22/25 12:30 05/22/25 12:29 04/22/25 12:25 12.5 MG Sodium Chloride 500 ml @ 0 mls/hr Q0M STAT IV 04/22/25 13:17 04/22/25 13:22 DC 04/22/25 14:39 600 MLS/HR Vancomycin HCl (Vancomycin Protocol) 1 each AD IV 04/22/25 15:00 04/23/25 22:23 DC DIAGNOSTICS / RADIOLOGY: [ ] ASSESSMENT: Right knee osteoarthritis, POA Intractable knee pain, POA Obesity, POA PLAN: patient is seen and examined at bedside, discussed with the RN, no acute events overnight, patient is status post CT-guided biopsy of left anterior rib mass, 04/26/2025, tolerated the procedure well. At the time of my visit, he is awake, following commands, denied chest pain, shortness shortness for breath, no nausea, no vomiting. Colostomy bag full of air. No stool or liquid noted. Plan is for the patient to start clear liquid diet and advanced as tolerated. We will follow results of pathology. Continue to follow a.m. labs. Mother at bedside, updated. NEURO: Minimize central acting medications as possible. Fall Precautions. Well lighted room through the day and minimize interruptions through the night to prevent acute delirium. PULMONARY: Supplemental 02 as needed BiPAP as necessary, for respiratory distress Titrate Fio2 to keep Spo2 > or = 90% DuoNebs and CPT as needed IS hourly while awake for pulmonary hygiene prn Out of bed to chair as tolerated Maintain aspiration precautions at all times CARDIOVASCULAR: Follow hemodynamics. Vital signs per facility protocol GI & NUTRITION: Continue nutritional support Aspirations precautions Prokinetic agents and laxatives as needed KIDNEYS & ELECTROLYTES: Strict monitoring of intake and output Daily weights Avoid nephrotoxic agents Monitor electrolytes and replace as needed Goal urine output of 30mL/hr or 0.5mL/kg/hr Medications to be dosed according to renal function. Avoid contrast if possible ENDOCRINE: Maintain blood glucose between 100-180 at all times. Insulin sliding scale for blood glucose management Hypoglycemia and hyperglycemia protocol in place INFECTIOUS DISEASE: Trend temperature, WBC and procalcitonin level Follow cultures, deescalate antibiotics as soon as possible. Panculture if new onset fever HEMATOLOGY & COAGULATION: Monitor H&H. Keep Hgb > 7 Transfuse 1 unit of PRBC for Hgb < 7 Transfuse 1 pack of platelets of platelets < 20, 000 Watch for any signs and symptoms of bleeding SKIN: Pressure ulcer prevention per facility protocol Specialty mattress as needed ORTHO/REHAB Continue PT/OT PRN: MEDICATIONS Tylenol 650 mg po every 4 hrs for fever zofran 4 mg IV every 6 hrs for n/v Hydralazine 5 mg IV every 4 hrs systolic pressure > 160 bowel regiment: lactulose 20 gm PO BID PRN constipation Supportive measures: Continue GI and DVT prophylaxis Disposition: Pending improvement in clinical condition All questions answered time spent: > 35 min TITA PETERSON MD Apr 26, 2025 11:55
--- NOTE | 2025-04-26 13:05 | PN ---
35 year old morbidly obese male with a past medical history of Colon mass s/p resection with colostomy placement diagnosed with small bowel obstruction ,severe sepsis and multisystem dysfunction .CT chest/Abdomen/Pelvis revealed Left iliac fossa Spigelian hernia containing small and large bowel with mechanical small bowel obstruction.New right upper lobe spiculated infiltrative mass measuring 5.4 x 4.6 cm infiltrating mediastinal pleura and albumin in the right main pulmonary artery , Bulky mediastinal lymphadenopathy with the largest node measuring 4 cm involving the right paratracheal, prevascular, and subcarinal stations and Multiple bilateral spiculated pulmonary nodules consistent with metastatic disease progression was also seen. Patient is evaluated at the bedside . He is being treated conservatively for small bowel obstruction and reports improvement of his symptoms. Patient with moderately differentiated adenocarcinoma rectum, status post decompressive transverse loop colostomy and colostomy bag placement(6.2.25).His Labs today show WBC 73706, Hb 9.9, plt 225k..CEA is 6714. Diet advanced to clear liquids. Patient is pending CT guided pulmonary nodule biopsy by IR. PHYSICAL EXAM EYES: Anicteric. Pupils equal and reactive. HENT: No oral thrush seen, moist Oral mucosa NECK: Supple, no JVD or thyromegaly. LUNGS: Good air entry. No rales, no rhonchi. CARDIOVASCULAR: S1, S2 regular. No murmur heard. ABDOMEN: Soft, non tender, bowel sounds present, no organomegaly CENTRAL NERVOUS SYSTEM: Awake, alert, oriented x 3. No focal deficits. SKIN: No rashes, no swelling. LYMPHATICS: No peripheral lymphadenopathy MUSCULOSKELETAL: No joint swelling, erythema or tenderness. EXTREMITIES: No cyanosis or clubbing BACK: No deformity, no pressure ulcer. 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 Failure to thrive PLAN 1.Pathology report from rectal mass biopsy - moderately differentiated adenocarcinoma . The new pulmonary nodules and mediastinal lymphadenopathy as per CT scan indicate the possibility of metastatic disease. CEA is 6714. We will request pulmonary nodule biopsy by IR . 2.Peripheral bloood smear shows microcytic hypochromic anemia consistent with iron deficiency anemia . There is teardrop cell, pelger huet cell and rouleaux formation .Increased number of WBCs observed with neutrophilia and hypersegmented neutrophils suggestive of underlying infection . Band cells observed. Platelet morphology and count within normal limits . 3. There is hypersegmented neutrophil. This patient will benefit from IV Iron, Folic acid 1 mg daily and Vitamin B12 1000 mcg daily. 4. Pending Lung nodule biopsy by IR .Plan for genetic phenotyping for targeted therapy if feasible . 5. This patient will need Port-A-Cath insertion before discharge home Vitals/Labs Vital Signs Date Time Temp Pulse Resp B/P (MAP) Pulse Ox O2 Delivery O2 Flow Rate FiO2 04/26/25 11:30 104 107/78 94 Nasal Cannula 3.0 04/26/25 10:45 28 04/26/25 10:30 98.2 18 Laboratory Tests 04/26/25 03:17 Medications Current Medications Ketorolac Tromethamine 30 mg ONCE ONCE IM Last administered on 04/19/25at 20:26; Start 04/19/25 at 20:00; Stop 04/19/25 at 20:01; Status DC Acetaminophen 1,000 mg ONCE ONCE PO Last administered on 04/19/25at 20:53; Start 04/19/25 at 20:30; Stop 04/19/25 at 20:34; Status DC Lidocaine 1 each ONCE ONCE TP Last administered on 04/19/25at 20:52; Start 04/19/25 at 20:30; Stop 04/19/25 at 20:34; Status DC Acetaminophen 650 mg Q6H PRN PO Last administered on 04/21/25at 02:20; Start 04/19/25 at 22:00; Stop 05/19/25 at 21:59 Enoxaparin Sodium 40 mg DAILY SQ Last administered on 04/22/25at 08:14; Start 04/20/25 at 09:00; Stop 04/22/25 at 20:00; Status DC Famotidine 20 mg DAILY PO Last administered on 04/26/25at 10:50; Start 04/20/25 at 09:00; Stop 05/20/25 at 08:59 Hydralazine HCl 10 mg Q6H PRN IV; Start 04/19/25 at 22:00; Stop 04/20/25 at 10:52; Status DC Lactated Ringer's 1,000 ml @ 100 mls/hr Q10H IV Last administered on 04/21/25at 12:40; Start 04/19/25 at 22:00; Stop 04/20/25 at 10:52; Status DC Lactulose 20 gm BID PRN PO; Start 04/19/25 at 22:00; Stop 05/19/25 at 21:59 Morphine Sulfate 4 mg Q4H PRN IVP; Start 04/19/25 at 22:00; Stop 04/20/25 at 10:52; Status DC Ondansetron HCl 4 mg Q6H PRN IV Last administered on 04/24/25at 22:19; Start 04/19/25 at 22:00; Stop 05/19/25 at 21:59 Ceftriaxone Sodium 1 gm Q24H IVPB Last administered on 04/22/25at 10:53; Start 04/20/25 at 10:00; Stop 04/22/25 at 12:41; Status DC Hydralazine HCl 5 mg Q6H PRN IV; Start 04/20/25 at 16:00; Stop 05/20/25 at 15:59 Ketorolac Tromethamine 15 mg Q6H PRN IV Last administered on 04/20/25at 22:08; Start 04/20/25 at 11:00; Stop 04/22/25 at 19:58; Status DC Lidocaine 1 each DAILY TP Last administered on 04/26/25at 10:50; Start 04/21/25 at 09:00; Stop 05/21/25 at 08:59 Magnesium Sulfate 50 ml @ 0 mls/hr PROTOCOL IV Last administered on 04/24/25at 06:11; Start 04/21/25 at 08:30; Stop 05/21/25 at 08:29 Potassium Chloride 40 meq ONCE ONCE PO Last administered on 04/21/25at 12:06; Start 04/21/25 at 08:30; Stop 04/21/25 at 08:31; Status DC Doxycycline Hyclate 250 ml @ 125 mls/hr Q12H IV Last administered on 04/22/25at 08:14; Start 04/21/25 at 08:30; Stop 04/22/25 at 12:41; Status DC Lactated Ringer's 1,000 ml @ 50 mls/hr Q20H IV Last administered on 04/24/25at 02:58; Start 04/21/25 at 12:30; Stop 04/25/25 at 07:47; Status DC Gadoterate Meglumine 10 mmol STK-MED ONCE IV; Start 04/21/25 at 13:44; Stop 04/21/25 at 13:44; Status DC Promethazine HCl 12.5 mg Q8H5 PRN IM Last administered on 04/22/25at 12:25; Start 04/22/25 at 12:30; Stop 05/22/25 at 12:29 Cefepime HCl 2 gm Q8H IVPB Last administered on 04/26/25at 05:12; Start 04/22/25 at 13:00; Stop 05/02/25 at 12:59 Metronidazole/ Sodium Chloride 100 ml @ 100 mls/hr Q8H6 IVPB Last administered on 04/26/25at 06:24; Start 04/22/25 at 14:00; Stop 05/02/25 at 13:59 Sodium Chloride 500 ml @ 0 mls/hr Q0M STAT IV Last administered on 04/22/25at 14:39; Start 04/22/25 at 13:17; Stop 04/22/25 at 13:22; Status DC Diatrizoate Meglum/ Diatrizoate Sod 30 ml STK-MED ONCE .ROUTE; Start 04/22/25 at 13:38; Stop 04/22/25 at 13:38; Status DC Vancomycin HCl 1 each AD IV; Start 04/22/25 at 15:00; Stop 04/23/25 at 22:23; Status DC Vancomycin HCl 500 ml @ 166.667 mls/hr ONCE ONCE IV Last administered on 04/22/25at 15:10; Start 04/22/25 at 15:00; Stop 04/22/25 at 17:59; Status DC Iohexol 75 ml STK-MED ONCE IV; Start 04/22/25 at 15:29; Stop 04/22/25 at 15:29; Status DC Hydromorphone HCl 0.5 mg Q4H PRN IVP; Start 04/22/25 at 20:00; Stop 04/27/25 at 19:59 Enoxaparin Sodium 40 mg Q12H SQ Last administered on 04/26/25at 10:52; Start 04/22/25 at 21:00; Stop 05/20/25 at 08:59 Labetalol HCl 10 mg ONCE ONCE IV Last administered on 04/23/25at 00:10; Start 04/23/25 at 00:00; Stop 04/23/25 at 00:02; Status DC Labetalol HCl 10 mg Q6H PRN IV; Start 04/23/25 at 00:00; Stop 05/23/25 at 00:00 Vancomycin HCl 250 ml @ 125 mls/hr ONCE ONCE IV Last administered on 04/23/25at 17:55; Start 04/23/25 at 18:00; Stop 04/23/25 at 22:23; Status DC Promethazine HCl 25 mg ONCE ONCE IM Last administered on 04/24/25at 00:59; Start 04/24/25 at 01:00; Stop 04/24/25 at 01:01; Status DC Furosemide 20 mg Q8H IV Last administered on 04/25/25at 03:06; Start 04/24/25 at 19:00; Stop 04/25/25 at 03:01; Status DC Dextrose 1,000 ml @ 50 mls/hr Q20H IV Last administered on 04/25/25at 10:38; Start 04/25/25 at 08:00; Stop 04/25/25 at 16:53; Status DC Iron Sucrose 200 mg DAILY IV Last administered on 04/26/25at 10:50; Start 04/26/25 at 09:00; Stop 04/28/25 at 11:00 Midazolam HCl 2 mg STK-MED ONCE .ROUTE Last administered on 04/26/25at 10:08; Start 04/26/25 at 09:01; Stop 04/26/25 at 09:01; Status DC Fentanyl Citrate 100 mcg STK-MED ONCE .ROUTE Last administered on 04/26/25at 10:06; Start 04/26/25 at 09:01; Stop 04/26/25 at 09:01; Status DC JANETTE GEE MD Apr 26, 2025 13:05
--- NOTE | 2025-04-26 18:37 | PN ---
INFECTIOUS DISEASE PROGRESS NOTE Date of Service: Apr 26, 2025 SUBJECTIVE: This is a 35-year-old male patient who was seen and examined at bedside in room 223. Patient is awake, alert and oriented x3. Patient is status post CT-guided lung biopsy today. Remains on oxygen via nasal cannula at 3 L/min. The NG tube is clamped and patient has been started on clear liquid diet. No fever, temperature is 98.2, the WBC however remains high at 15.8. We will continue on cefepime and metronidazole IV. Patient's mother, father and his sister visiting at bedside. Questions answered. PHYSICAL EXAM EYES: Anicteric. Pupils equal and reactive. HENT: No oral thrush seen, moist Oral mucosa. NG tube clamp. NECK: Supple, no JVD or thyromegaly. LUNGS: Good air entry. No rales, no rhonchi. CARDIOVASCULAR: S1, S2 regular. No murmur heard. ABDOMEN: Abdomen is large but Soft, bowel sounds present. Abdominal surgical scar and Left colostomy. CENTRAL NERVOUS SYSTEM: Awake, alert, oriented x 3. SKIN: No rashes, no swelling. LYMPHATICS: No peripheral lymphadenopathy. MUSCULOSKELETAL: Right knee pain. EXTREMITIES: No cyanosis or clubbing. BACK: No deformity, no pressure ulcer. GENITOURINARY: No dysuria or hematuria. Vital Sign (Last 12 Hours) 04/26/25 04/26/25 04/26/25 04/26/25 06:53 06:55 07:53 10:30 Temp 98.2 98.2 Pulse 106 106 105 107 Resp 24 24 18 18 B/P (MAP) 122/81 119/83 Pulse Ox 97 94 O2 Delivery N/Cannula Low lpm Nasal Cannula Nasal Cannula O2 Flow Rate 2.0 3.0 3.0 04/26/25 04/26/25 04/26/25 04/26/25 10:45 10:45 11:00 11:15 Pulse 103 106 107 B/P (MAP) 115/86 119/87 119/85 Pulse Ox 95 94 94 93 O2 Delivery Nasal Cannula Nasal Cannula* Nasal Cannula Nasal Cannula O2 Flow Rate 3.0 2 3.0 3.0 FiO2 28 04/26/25 04/26/25 04/26/25 04/26/25 11:30 12:00 12:30 13:30 Pulse 104 96 101 104 B/P (MAP) 107/78 108/70 120/87 113/73 Pulse Ox 94 96 95 95 O2 Delivery Nasal Cannula Nasal Cannula Nasal Cannula Nasal Cannula O2 Flow Rate 3.0 3.0 3.0 3.0 04/26/25 04/26/25 14:30 16:05 Temp 98.4 Pulse 103 68 Resp 18 B/P (MAP) 142/65 114/80 Pulse Ox 96 95 O2 Delivery Nasal Cannula Nasal Cannula O2 Flow Rate 3.0 3.0 Intake & Output (last 24hrs) 04/25/25 04/25/25 04/26/25 15:00 23:00 07:00 Intake Total 240 ml 120 ml Output Total 700 ml Balance 240 ml -580 ml LABS: Laboratory: Test 04/26/25 03:17 04/25/25 03:31 Range/Units White Blood Count 15.8 H 4.8-10.8 K/uL Red Blood Count 4.35 L 4.50-6.20 MIL/uL Hemoglobin 10.0 L 14.0-18.0 g/dL Hematocrit 34.1 L 42-54 % Mean Corpuscular Volume 78.4 L 79-99 fL Mean Corpuscular Hemoglobin 23.0 L 27.0-33.0 pg Mean Corpuscular Hemoglobin Concent 29.3 L 32.0-36.0 g/dL Red Cell Distribution Width 18.0 H 11.0-15.5 % Platelet Count 202 130-400 K/uL Mean Platelet Volume 10.7 H 7.5-10.5 fL Immature Granulocyte % (Auto) 2.0 H 0-1 % Neutrophils (%) (Auto) 79.2 H 40.0-77.0 % Lymphocytes (%) (Auto) 8.1 L 21.0-51.0 % Monocytes (%) (Auto) 9.2 3.0-13.0 % Eosinophils (%) (Auto) 1.1 0.0-8.0 % Basophils (%) (Auto) 0.4 0.0-5.0 % Neutrophils # (Auto) 12.5 H 1.8-7.7 K/uL Lymphocytes # (Auto) 1.3 1.0-4.8 K/uL Monocytes # (Auto) 1.5 H 0.1-1.0 K/uL Eosinophils # (Auto) 0.18 0.00-0.70 K/uL Basophils # (Auto) 0.06 0.00-0.20 K/uL Absolute Immature Granulocyte (auto 0.32 0-1 K/uL Nucleated Red Blood Cells 0.0 0.0-0.19 % Prothrombin Time 12.4 H 9.6-11.6 SEC Prothromb Time International Ratio 1.19 H 0.85-1.15 Activated Partial Thromboplast Time 29.2 26.3-35.5 SEC Sodium Level 144 136-145 mmol/L Potassium Level 3.6 3.5-5.1 mmol/L Chloride Level 105 101-111 mmol/L Carbon Dioxide Level 33 H 21-32 mmol/L Blood Urea Nitrogen 24 H 7-18 mg/dL Creatinine 0.8 0.5-1.3 mg/dL Glomerular Filtration Rate Calc 118 >90 mL/min Random Glucose 129 H 70-105 mg/dL Total Calcium 8.5 8.5-10.1 mg/dL Magnesium Level 2.00 1.80-2.40 mg/dL Total Bilirubin 1.1 H 0.2-1.0 mg/dL Aspartate Amino Transf (AST/SGOT) 29 10-37 U/L Alanine Aminotransferase (ALT/SGPT) 15 # 12-78 U/L Alkaline Phosphatase 178 H 50-136 U/L Total Protein 6.6 6.0-8.3 g/dL Albumin 1.8 L 3.5-5.0 g/dL Lactic Acid Level 1.7 0.8-2.5 mmol/L ASSESSMENT: Hypoxic respiratory failure, requiring oxygen support. Staphylococcus epidermidis bacteremia, which is a contaminant. Leukocytosis. Right knee osteoarthritis. Bilateral pulmonary nodules consistent with metastatic disease, s/p lung biopsy. Small-bowel obstruction. Acute renal failure, improving. Morbid obesity. Recent Colorectal mass with resection and colostomy creation. PLAN: Continue cefepime. Continue metronidazole. NG tube is clamp and has been started on clear liquid diet Continue oxygen support. Oncologist following patient. Continue GI prophylaxis. Continue pain management. Avoid nephrotoxic medications. This case was reviewed and discussed with my supervising physician Dr. Richards and the above assessment and plan was formulated and agreed upon. ATTESTATION BY PHYSICIAN I have seen and examined the patient. I reviewed the documentation, medical d ecision making, and treatment plan as noted by the mid-level provider above. I agree with the findings and plan of care. JULIANNA RICHARDS MD, MIRTA L [facility] Apr 26, 2025 18:37
[2025-04-27] VITALS (13 sets, daily range): BP systolic 105–134; BP diastolic 65–87; PULSE 87–112; RESP 18–26; TEMP 97.5–99.5; O2SAT 93–98
--- NOTE | 2025-04-27 00:47 | PN ---
FOLLOWUP PROGRESS NOTE SUBJECTIVE: A 35-year-old male with a history of colon mass. The patient initially presented with [id number] renal failure. The patient's creatinine has stabilized. The patient is noted to have metastatic disease on CT scan. He is scheduled for lung biopsy later today and the patient is being seen as a followup visit for all of the above. REVIEW OF SYSTEMS: GENERAL: The patient is feeling weak and tired. HEENT: No change in vision. No change in hearing. CARDIOVASCULAR: There are no current chest pains or palpitations. PULMONARY: There is no shortness of breath. GASTROINTESTINAL: As described above. MUSCULOSKELETAL: Complains of weakness. PHYSICAL EXAMINATION: VITAL SIGNS: Blood pressure is 122/81, pulse 100. GENERAL: Chronically ill male, obese, lying in bed on the medical floor. HEENT: Head is atraumatic. Pupils equal, round, and reactive to light. Oropharynx is without exudate. Nares clear. NECK: There is no JVP. No thyromegaly. CARDIOVASCULAR: Regular. There is no S3 or S4 gallop. LUNGS: Coarse with equal thoracic movement. ABDOMEN: Soft, nondistended, and nontender. EXTREMITIES: There is no clubbing, no cyanosis. NEUROLOGICAL: He is awake. He is alert. LABORATORY DATA: BUN 26, creatinine 0.8, hemoglobin 10, hematocrit 34. IMPRESSION: * [id number] renal failure. * Metastatic disease. * Sleep apnea. * Hypertension. PLAN: The patient's workup is ongoing per Oncology. The patient is scheduled for a lung biopsy later today. We will continue to follow the patient closely. Electrolytes have all been aggressively repleted. The patient and family at the bedside. Multiple questions were all answered. TID: [id number] RECEIPT: [id number]
[2025-04-27 03:55] LABS: IMMATURE GRANULOCYTE ABSOLUTE 1.03 K/uL (0-1); NUCLEATED RED BLOOD CELLS 0.1 % (0.0-0.19); PLATELET COUNT (AUTO) 234 K/uL (130-400); RED BLOOD CELL COUNT(AUTO) 4.58 MIL/uL (4.50-6.20); RED CELL DISTRIBUTION WIDTH 18.1 % (11.0-15.5); WHITE BLOOD COUNT (AUTO) 18.7 K/uL (4.8-10.8)
[2025-04-27 04:12] LABS: ASPARTATE AMINOTRANSFERASE 26.0 U/L (10-37); CREATININE 0.8 mg/dL (0.5-1.3); GLOMERULAR FILTR. RATE CALC 118.0 mL/min (>90); GLUCOSE,RANDOM 113.0 mg/dL (70-105); SODIUM SERUM 145.0 mmol/L (136-145); TOTAL PROTEIN, SERUM 7.0 g/dL (6.0-8.3); UREA NITROGEN, BLOOD 24.0 mg/dL (7-18)
--- NOTE | 2025-04-27 06:30 | NUR ---
Right Arm PICC 0300: patient currently feeling pain and swelling noted to right arm where PICC line is, arm circumference has increased from 44cm to 54 cm. Orders received from Reba MADRIGAL to have patient receive an Ultrasound of the RUE to rule out DVT. Limb restriction applied to right arm. 0400: left forearm 20g placed for IV medications. 0630: PICC line removed and US being performed at this time, patient tolerated PICC line removal and was measured at 41 cm. PICC line tip intact.
--- NOTE | 2025-04-27 09:02 | PN ---
35 year old morbidly obese male with a past medical history of Colon mass s/p resection with colostomy placement diagnosed with small bowel obstruction ,severe sepsis and multisystem dysfunction .CT chest/Abdomen/Pelvis revealed Left iliac fossa Spigelian hernia containing small and large bowel with mechanical small bowel obstruction.New right upper lobe spiculated infiltrative mass measuring 5.4 x 4.6 cm infiltrating mediastinal pleura and albumin in the right main pulmonary artery , Bulky mediastinal lymphadenopathy with the largest node measuring 4 cm involving the right paratracheal, prevascular, and subcarinal stations and Multiple bilateral spiculated pulmonary nodules consistent with metastatic disease progression was also seen. Patient is evaluated at the bedside . He is being treated conservatively for small bowel obstruction and reports improvement of his symptoms. Patient with moderately differentiated adenocarcinoma rectum, status post decompressive transverse loop colostomy and colostomy bag placement(6.2.25).His Labs today show WBC 14823, Hb 9.9, plt 225k..CEA is 6714. Diet advanced to clear liquids. Patient is pending CT guided pulmonary nodule biopsy by IR. PHYSICAL EXAM EYES: Anicteric. Pupils equal and reactive. HENT: No oral thrush seen, moist Oral mucosa NECK: Supple, no JVD or thyromegaly. LUNGS: Good air entry. No rales, no rhonchi. CARDIOVASCULAR: S1, S2 regular. No murmur heard. ABDOMEN: Soft, non tender, bowel sounds present, no organomegaly CENTRAL NERVOUS SYSTEM: Awake, alert, oriented x 3. No focal deficits. SKIN: No rashes, no swelling. LYMPHATICS: No peripheral lymphadenopathy MUSCULOSKELETAL: No joint swelling, erythema or tenderness. EXTREMITIES: No cyanosis or clubbing BACK: No deformity, no pressure ulcer. 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 Failure to thrive PLAN 1.Pathology report from rectal mass biopsy - moderately differentiated adenocarcinoma . The new pulmonary nodules and mediastinal lymphadenopathy as per CT scan indicate the possibility of metastatic disease. CEA is 6714. We will request pulmonary nodule biopsy by IR . 2.Peripheral bloood smear shows microcytic hypochromic anemia consistent with iron deficiency anemia . There is teardrop cell, pelger huet cell and rouleaux formation .Increased number of WBCs observed with neutrophilia and hypersegmented neutrophils suggestive of underlying infection . Band cells observed. Platelet morphology and count within normal limits . 3. There is hypersegmented neutrophil. This patient will benefit from IV Iron, Folic acid 1 mg daily and Vitamin B12 1000 mcg daily. 4. Pending Lung nodule biopsy by IR .Plan for genetic phenotyping for targeted therapy if feasible . 5. This patient will need Port-A-Cath insertion before discharge home. This patient need to be clear for Port-A-Cath insertion by infectious disease. But if this patient could not have Port-A-Cath before discharge then we could do it as outpatient. Vitals/Labs Vital Signs Date Time Temp Pulse Resp B/P (MAP) Pulse Ox O2 Delivery O2 Flow Rate FiO2 04/27/25 08:15 93 Nasal Cannula* 2 28 04/27/25 07:48 98.4 103 18 115/75 Laboratory Tests 04/27/25 03:14 Medications Current Medications Ketorolac Tromethamine 30 mg ONCE ONCE IM Last administered on 04/19/25at 20:26; Start 04/19/25 at 20:00; Stop 04/19/25 at 20:01; Status DC Acetaminophen 1,000 mg ONCE ONCE PO Last administered on 04/19/25at 20:53; Start 04/19/25 at 20:30; Stop 04/19/25 at 20:34; Status DC Lidocaine 1 each ONCE ONCE TP Last administered on 04/19/25at 20:52; Start 04/19/25 at 20:30; Stop 04/19/25 at 20:34; Status DC Acetaminophen 650 mg Q6H PRN PO Last administered on 04/21/25at 02:20; Start 04/19/25 at 22:00; Stop 05/19/25 at 21:59 Enoxaparin Sodium 40 mg DAILY SQ Last administered on 04/22/25at 08:14; Start 04/20/25 at 09:00; Stop 04/22/25 at 20:00; Status DC Famotidine 20 mg DAILY PO Last administered on 04/27/25at 08:11; Start 04/20/25 at 09:00; Stop 05/20/25 at 08:59 Hydralazine HCl 10 mg Q6H PRN IV; Start 04/19/25 at 22:00; Stop 04/20/25 at 10:52; Status DC Lactated Ringer's 1,000 ml @ 100 mls/hr Q10H IV Last administered on 04/21/25at 12:40; Start 04/19/25 at 22:00; Stop 04/20/25 at 10:52; Status DC Lactulose 20 gm BID PRN PO; Start 04/19/25 at 22:00; Stop 05/19/25 at 21:59 Morphine Sulfate 4 mg Q4H PRN IVP; Start 04/19/25 at 22:00; Stop 04/20/25 at 10:52; Status DC Ondansetron HCl 4 mg Q6H PRN IV Last administered on 04/24/25at 22:19; Start 04/19/25 at 22:00; Stop 05/19/25 at 21:59 Ceftriaxone Sodium 1 gm Q24H IVPB Last administered on 04/22/25at 10:53; Start 04/20/25 at 10:00; Stop 04/22/25 at 12:41; Status DC Hydralazine HCl 5 mg Q6H PRN IV; Start 04/20/25 at 16:00; Stop 05/20/25 at 15:59 Ketorolac Tromethamine 15 mg Q6H PRN IV Last administered on 04/20/25at 22:08; Start 04/20/25 at 11:00; Stop 04/22/25 at 19:58; Status DC Lidocaine 1 each DAILY TP Last administered on 04/27/25at 08:10; Start 04/21/25 at 09:00; Stop 05/21/25 at 08:59 Magnesium Sulfate 50 ml @ 0 mls/hr PROTOCOL IV Last administered on 04/24/25at 06:11; Start 04/21/25 at 08:30; Stop 05/21/25 at 08:29 Potassium Chloride 40 meq ONCE ONCE PO Last administered on 04/21/25at 12:06; Start 04/21/25 at 08:30; Stop 04/21/25 at 08:31; Status DC Doxycycline Hyclate 250 ml @ 125 mls/hr Q12H IV Last administered on 04/22/25at 08:14; Start 04/21/25 at 08:30; Stop 04/22/25 at 12:41; Status DC Lactated Ringer's 1,000 ml @ 50 mls/hr Q20H IV Last administered on 04/24/25at 02:58; Start 04/21/25 at 12:30; Stop 04/25/25 at 07:47; Status DC Gadoterate Meglumine 10 mmol STK-MED ONCE IV; Start 04/21/25 at 13:44; Stop 04/21/25 at 13:44; Status DC Promethazine HCl 12.5 mg Q8H5 PRN IM Last administered on 04/22/25at 12:25; Start 04/22/25 at 12:30; Stop 05/22/25 at 12:29 Cefepime HCl 2 gm Q8H IVPB Last administered on 04/27/25at 06:06; Start 04/22/25 at 13:00; Stop 05/02/25 at 12:59 Metronidazole/ Sodium Chloride 100 ml @ 100 mls/hr Q8H6 IVPB Last administered on 04/27/25at 06:06; Start 04/22/25 at 14:00; Stop 05/02/25 at 13:59 Sodium Chloride 500 ml @ 0 mls/hr Q0M STAT IV Last administered on 04/22/25at 14:39; Start 04/22/25 at 13:17; Stop 04/22/25 at 13:22; Status DC Diatrizoate Meglum/ Diatrizoate Sod 30 ml STK-MED ONCE .ROUTE; Start 04/22/25 at 13:38; Stop 04/22/25 at 13:38; Status DC Vancomycin HCl 1 each AD IV; Start 04/22/25 at 15:00; Stop 04/23/25 at 22:23; Status DC Vancomycin HCl 500 ml @ 166.667 mls/hr ONCE ONCE IV Last administered on 04/22/25at 15:10; Start 04/22/25 at 15:00; Stop 04/22/25 at 17:59; Status DC Iohexol 75 ml STK-MED ONCE IV; Start 04/22/25 at 15:29; Stop 04/22/25 at 15:29; Status DC Hydromorphone HCl 0.5 mg Q4H PRN IVP; Start 04/22/25 at 20:00; Stop 04/27/25 at 19:59 Enoxaparin Sodium 40 mg Q12H SQ Last administered on 04/27/25at 08:10; Start 04/22/25 at 21:00; Stop 05/20/25 at 08:59 Labetalol HCl 10 mg ONCE ONCE IV Last administered on 04/23/25at 00:10; Start 04/23/25 at 00:00; Stop 04/23/25 at 00:02; Status DC Labetalol HCl 10 mg Q6H PRN IV; Start 04/23/25 at 00:00; Stop 05/23/25 at 00:00 Vancomycin HCl 250 ml @ 125 mls/hr ONCE ONCE IV Last administered on 04/23/25at 17:55; Start 04/23/25 at 18:00; Stop 04/23/25 at 22:23; Status DC Promethazine HCl 25 mg ONCE ONCE IM Last administered on 04/24/25at 00:59; Start 04/24/25 at 01:00; Stop 04/24/25 at 01:01; Status DC Furosemide 20 mg Q8H IV Last administered on 04/25/25at 03:06; Start 04/24/25 at 19:00; Stop 04/25/25 at 03:01; Status DC Dextrose 1,000 ml @ 50 mls/hr Q20H IV Last administered on 04/25/25at 10:38; Start 04/25/25 at 08:00; Stop 04/25/25 at 16:53; Status DC Iron Sucrose 200 mg DAILY IV Last administered on 04/26/25at 10:50; Start 04/26/25 at 09:00; Stop 04/28/25 at 11:00 Midazolam HCl 2 mg STK-MED ONCE .ROUTE Last administered on 04/26/25at 10:08; Start 04/26/25 at 09:01; Stop 04/26/25 at 09:01; Status DC Fentanyl Citrate 100 mcg STK-MED ONCE .ROUTE Last administered on 04/26/25at 10:06; Start 04/26/25 at 09:01; Stop 04/26/25 at 09:01; Status DC Nystatin 1 APPLICATION BID TP Last administered on 04/27/25at 08:12; Start 04/26/25 at 14:00; Stop 05/26/25 at 13:59 JANETTE GEE MD Apr 27, 2025 09:02
--- NOTE | 2025-04-27 12:14 | PN ---
[facility] PROGRESS NOTE Date Patient Seen: Apr 27, 2025 Time of Visit: 12:14 Supervising Physician: Dr. Terrance Goldsmith Inpatient Consults: Dr. Nguyen, Dr. Abad, Dr. Henry, Dr. Johnson PROBLEM LIST: Severe sepsis with MODS, resolved Leukocytosis Gram-positive cocci bacteremia Status post left rib biopsy by IR on 04/26/2025 New right upper lobe spiculated infiltrative mass measuring 5.4 x 4.6 cm infiltrating mediastinal pleura and albumin in the right main pulmonary artery Bulky mediastinal lymphadenopathy with the largest node measuring 4 cm involving the right paratracheal, prevascular, and subcarinal stations Multiple bilateral spiculated pulmonary nodules consistent with metastatic disease progression Bilateral marked diffuse adrenal enlargement likely metastatic or hyperplastic Left iliac fossa 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 INTERVAL HISTORY: Patient assessed at bedside. Currently on 02@3LPM via NC. S/P left rib biopsy by IR yesterday. AAOX3. Mother at bedside. WBC increased to 18.7. CXR ordered. RUE swelling, PICC line was removed. Continues on IV ABX Cefepime and Flagyl per ID. Denies any chest pain, abdominal pain, nausea or vomiting. Tolerating soft diet. Colostomy filled with air. No overnight issues per nursing. Prognosis is guarded. PLAN Follow oncology recommendations AM CXR Await for biopsy results Maintain O2 sats above 90%, wean off as tolerated CT chest shows bo ball lesions in lungs, likely metastatic disease Continue PUD and DVT PPX Follow general surgery recommendations REVIEW OF SYSTEMS: 12 point ROS reviewed with patient. Pertinent positives mentioned above. Otherwise negative. PHYSICAL EXAM: GENERAL: alert, weak, awake oriented x 3 HEENT: EOMI, Sclera non icteric, moist mucosa NC NECK: Supple, no JVD, trachea midline LUNGS: Diminished breath sounds bilaterally. No wheezes HEART: controlled rate and rhythm. Normal S1 and S2, without murmurs ABD: morbidly obese Abdomen soft, nontender. Bowel sounds hypoactive EXT: No clubbing cyanosis or edema NEURO: Alert and oriented to person, follows commands Vital Signs (last 8hr) Date Time Temp Pulse Resp B/P (MAP) Pulse Ox O2 Delivery O2 Flow Rate FiO2 04/27/25 08:15 93 Nasal Cannula* 2 28 04/27/25 07:48 98.4 103 18 115/75 93 Nasal Cannula 3.0 04/27/25 07:08 107 21 04/27/25 07:06 107 21 N/Cannula Low lpm 3.0 LABS: Hematology Labs: Test 04/27/25 03:14 Range/Units White Blood Count 18.7 H 4.8-10.8 K/uL Red Blood Count 4.58 4.50-6.20 MIL/uL Hemoglobin 10.4 L 14.0-18.0 g/dL Hematocrit 35.9 L 42-54 % Mean Corpuscular Volume 78.4 L 79-99 fL Mean Corpuscular Hemoglobin 22.7 L 27.0-33.0 pg Mean Corpuscular Hemoglobin Concent 29.0 L 32.0-36.0 g/dL Red Cell Distribution Width 18.1 H 11.0-15.5 % Platelet Count 234 130-400 K/uL Mean Platelet Volume 11.4 H 7.5-10.5 fL Immature Granulocyte % (Auto) 5.5 H 0-1 % Neutrophils (%) (Auto) 76.1 40.0-77.0 % Lymphocytes (%) (Auto) 8.4 L 21.0-51.0 % Monocytes (%) (Auto) 8.8 3.0-13.0 % Eosinophils (%) (Auto) 0.6 0.0-8.0 % Basophils (%) (Auto) 0.6 0.0-5.0 % Neutrophils # (Auto) 14.2 H 1.8-7.7 K/uL Lymphocytes # (Auto) 1.6 1.0-4.8 K/uL Monocytes # (Auto) 1.7 H 0.1-1.0 K/uL Eosinophils # (Auto) 0.12 0.00-0.70 K/uL Basophils # (Auto) 0.11 0.00-0.20 K/uL Absolute Immature Granulocyte (auto 1.03 H 0-1 K/uL Nucleated Red Blood Cells 0.1 0.0-0.19 % Chemistry Labs: Test 04/27/25 03:14 Range/Units Sodium Level 145 136-145 mmol/L Potassium Level 4.0 3.5-5.1 mmol/L Chloride Level 107 101-111 mmol/L Carbon Dioxide Level 28 21-32 mmol/L Blood Urea Nitrogen 24 H 7-18 mg/dL Creatinine 0.8 0.5-1.3 mg/dL Glomerular Filtration Rate Calc 118 >90 mL/min Random Glucose 113 H 70-105 mg/dL Total Calcium 8.7 8.5-10.1 mg/dL Magnesium Level 2.00 1.80-2.40 mg/dL Total Bilirubin 1.1 H 0.2-1.0 mg/dL Aspartate Amino Transf (AST/SGOT) 26 10-37 U/L Alanine Aminotransferase (ALT/SGPT) 13 12-78 U/L Alkaline Phosphatase 175 H 50-136 U/L Total Protein 7.0 6.0-8.3 g/dL Albumin 1.9 L 3.5-5.0 g/dL Coagulation Labs: Test 04/26/25 03:17 Range/Units Prothrombin Time 12.4 H 9.6-11.6 SEC Prothromb Time International Ratio 1.19 H 0.85-1.15 Activated Partial Thromboplast Time 29.2 26.3-35.5 SEC DIAGNOSTICS / RADIOLOGY RESULTS: NA PLAN NEURO: Minimize central acting medications as possible. Maintain fall precautions, adequate lighting during the day PULMONARY: Supplemental 02 as needed. Maintain aspiration precautions at all times CARDIOVASCULAR: Follow hemodynamics. Vital signs per facility protocol GI & NUTRITION: Continue with nutritional support. Continue stool softeners and laxatives as needed. KIDNEYS & ELECTROLYTES: Strict monitoring of intake, output and overall fluid balance. Avoid nephrotoxic medications to the extent possible. Medications to be dosed according to renal function. Monitor electrolytes and replace as needed ENDOCRINE: Maintain blood glucose between 100-180 at all times. Hypoglycemia protocol in place INFECTIOUS DISEASE: Trend temperature, WBC and procalcitonin level Follow cultures, deescalate antibiotics as soon as possible. Panculture if new onset fever ONCOLOGY/HEMATOLOGY/COAGULATION: Monitor for s/s of bleeding Monitor hemoglobin, coagulation studies as needed SKIN: Pressure ulcer prevention per facility protocol Specialty mattress ORTHO/REHAB: Continue PT/OT Prophylaxis: Continue GI and DVT prophylaxis Code Status: Full Resuscitation Disposition: Per primary team Total critical care time: 36 minutes DORCAS DUBON Apr 27, 2025 12:14
--- NOTE | 2025-04-27 12:55 | HMCIMG ---
EXAM: ULTRASOUND VENOUS DOPPLER, RIGHT UPPER EXTREMITY Technique: Duplex ultrasound with grayscale imaging, compression maneuvers, color Doppler, and spectral Doppler sampling of the right upper extremity veins. Clinical Information: Right arm peripherally inserted central catheter; swelling, pain, and redness; concern for deep venous thrombosis. Findings: Right axillary vein: Noncompressible with intraluminal echogenic thrombus and absent color Doppler filling, consistent with thrombosis. Right brachial veins: Thrombus present consistent with deep venous thrombosis. Right cephalic vein: Partial (non-occlusive) thrombosis. PICC: Indwelling right upper extremity peripherally inserted central catheter present; catheter-associated thrombosis suspected based on thrombus distribution. Tip location not assessed on this examination. Additional comments: No other specific venous segment findings were provided for review. Impression: * Right upper extremity catheter-associated deep venous thrombosis involving the axillary vein and brachial veins. * Non-occlusive thrombosis of the right cephalic vein (superficial venous thrombosis). * Correlate clinically for pulmonary embolism risk; management typically includes anticoagulation per institutional protocol and assessment of need for PICC removal or exchange depending on clinical requirements. /[place]
--- NOTE | 2025-04-27 13:06 | PN ---
[facility] PROGRESS NOTE Date of Service: Apr 27, 2025 Time of Service: 13:03 SUBJECTIVE: 04/20 the patient has been seen and examined at bedside, case discussed with the RN, no acute events overnight, the time of my visit, the patient is awake, following commands, blood pressure 140/90, afebrile, saturating normal on room air. The patient is morbidly obese, he uses a CPAP at home, currently CPAP at bedside during my visit. WBC 14.0, hemoglobin 10.4, hematocrit 34.8, platelet count of 305. CMP shows sodium 141, potassium 3.5, BUN 70, creatinine 0.9, iron level of 25. X-ray of the knee showing moderate to severe three, power mental right knee osteoarthritis, predominantly in the lateral compartment, with small joint effusion. No acute fracture. Orthopedic physician consultation requested, we will follow input and recommendation. MRI of the right knee requested, however due to morbid obesity, might not be able to do it. Discussed with the mother is at the bedside, all questions answered, in agreement. 04/21 patient has been seen and examined at bedside, case discussed with the RN, no acute events overnight, the time my visit he is awake, following commands, admits mild dry nonproductive cough, spiked fever 102.6. Denied chest pain, shortness shortness for breath, no nausea, no vomiting, no abdominal discomfort. The patient has a colostomy bag, on examination, liquid stool noted. WBC slowly trending down at 12.7, hemoglobin stable 11.6. Magnesium 1.7. Added doxycycline 100 mg IV q.12 hours. Follow serology to include SARS antigen, influenza and rapid strep. We will give magnesium sulfate 2 g IV x1. We will order GI stool panel. Patient is scheduled for MRI to the right knee today, continue lidocaine patch, discussed with the orthopedic physician today, we will follow input and recommendation. 04/22 patient is seen and examined at bedside, discussed with the RN. Patient currently feels nauseated. He admits mild discomfort to the right lower quadrant. BP 135/77, mildly tachycardic at 108, saturating normal on room air. Maximum temperature last 24 hours 102.7. CBC shows a hemoglobin of 11.6, hematocrit 35.7, platelet count of 276, with a platelet count of 23.8. Creatinine 2.1. MRI of the right knee shows tricompartmental osteoarthritis with osteophytosis and diffuse cartilage loss, medial and lateral meniscal with complex degenerative tear involving posterior horns and bodies, meniscal tear severity grade 3, full-thickness chondral defect of the lateral femoral condyle, with a underlying subchondral edema, small reactive joint effusion with mild synovitis. We will upgraded the patient to the PCU, LR at 50 mL/hours, follow repeat CBC, CMP and magnesium level. Continue Rocephin and doxycycline IV. We will order a CT of the abdomen and pelvis without contrast to rule out intra- abdominal acute pathology. Orthopedic input noted and appreciated, patient with bad arthritis, we will finally benefit from knee replacement, however considering his morbid obesity, it is not indicated right now. Recommended co nservative approach. Mother at bedside, all questions answered, updated, in agreement with plan of care. 04/23 patient is seen and examined at bedside, discussed with the RN, no acute events overnight, patient upgraded to the ICU yesterday due to sepsis and developing small bowel obstruction. Today the patient is awake, following commands, he is NPO, NG tube to intermittent suction, BP 120/76, heart rate of 111, saturating 96% 3 L nasal cannula, temperature 98.4. WBC of 27.6, hemoglobin 10.6, hematocrit 35.5, platelet count 240, creatinine improved to 1.2. Septic workup with blood culture positive for Staphylococcus epidermidis. Echocardiogram and chest x-ray pending. Patient will remain admitted to the ICU, continue broad-spectrum IV antibiotics, we will follow surgical input recommendation. Continue to follow critical Care and ID input and recommendation. And we will update the mother regarding results of CT of the abdomen pelvis and further plan of care when she is present in the room. CT abdomen and pelvis reviewed, as follows: * Patient is undergoing mass evaluation. * Interval progression since 22 April 2025 with a new right upper lobe spiculated infiltrative mass measuring 5.4 ??? 4.6 cm infiltrating mediastinal pleura and abutting the right main pulmonary artery. * Bulky mediastinal lymphadenopathy with largest node measuring 4 cm, involving right paratracheal, prevascular, precarinal, and subcarinal stations, increased since prior study. * Multiple bilateral spiculated pulmonary nodules (1???2.5 cm), consistent with metastatic disease progression. * Bilateral marked diffuse adrenal enlargement (Right 5.9 ??? 3.6 cm, Left 7.6 ??? 5.4 cm), likely metastatic or hyperplastic. 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 * Degenerative thoracolumbar spondylosis with L4 vertebral body wedging (30???40% height loss), unchanged. * Comparison is made with the exam dated 22 April 2025. Overall findings indicate worsening metastatic disease with new primary and gloria lesions and mechanical bowel obstruction requiring clinical and surgical correlation. Recommendations include oncologic evaluation and PET-CT staging, alongside urgent surgical consultation for bowel obstruction. 04/24 patient is seen and examined at bedside, discussed with the RN, no acute events overnight, patient downgraded from the ICU to the PCU, he remains NPO, NG tube connected to intermittent suction, output in the last 12 hours 200 mL. BP 146/150, heart rate of 101, afebrile, saturating 96-97% on nasal cannula. CBC shows a hemoglobin of 9.9, hematocrit 33.5, platelet count of 235, with WBC of 21.3. CMP with sodium 146, potassium 3.8, BUN of 18, creatinine 0.9, magnesium 1.8. Blood culture 04/21/2025 positive for Staphylococcus epidermidis. Repeat blood cultures 04/23/2025 no growth after 24 hours echocardiogram 04/23/2025 LVEF 50-55%, no left ventricle thrombus, no intracardiac masses, no valvular vegetations. Today chest x-ray pending. Patient will remain admitted to the PCU, NPO, intermittent suction, continue to follow surgical input recommendation, continue broad-spectrum IV antibiotics, follow WBC in a.m.. Follow KUB. I HAVE CONTACTED THE DEPARTMENT OF MEDICAL RECORDS [facility], SPOKE WITH ZENA AT PHONE NUMBER [phone], I HAVE REQUESTED MEDICAL RECORDS. WE WILL FOLLOW UP. 04/25 patient is seen and examined at bedside, case discussed with the RN, no acute events overnight, he remains comfortably in bed, NPO, NG tube to intermittent suction, he is awake, following commands, BP 128/90, area of 101, afebrile. Still feels distended. On examination colostomy bag, enema output noted. KUB pending. KUB from 04/24/2025 showing markedly dilated small bowel loops up to 5.6 cm, consistent with distal small-bowel obstruction, no pneumoperitoneum, pneumatosis intestinalis or portal venous gas. I received medical records from [facility], patient was admitted on 11/19/2024 and discharged 12/08/2024. Areolar in the hospital patient underwent exploratory laparoscopy, laparotomy and creation of transverse loop colostomy 11/28/2024. Patient was evaluated by oncologist Braulio Bell. 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 Per my discussion with the mother, from [facility] the patient was discharged to [facility] to recover and from there he went home. Patient has not had a follow up appointment with the general surgeon or oncologist after that. We have requested Oncology consultation here during this admission. Pathology report from rectal biopsy shows moderately differentiated adenocarcinoma, then new pulmonary nodules and mediastinal lymphadenopathy as per CT scan indicates the possibility of metastatic disease. CEA is [id number]. Re quested pulmonary nodule biopsy by IR. Patient will remain admitted to the PCU, we will continue NG tube to intermittent suction, NPO, TPN, follow surgical input and recommendation. Follow repeat KUB. Mother at bedside, updated, all questions answered. Plan of care discussed with the patient as well, in agreement. 04/26 patient is seen and examined at bedside, discussed with the RN, no acute events overnight, patient is status post CT-guided biopsy of left anterior rib mass, 04/26/2025, tolerated the procedure well. At the time of my visit, he is awake, following commands, denied chest pain, shortness shortness for breath, no nausea, no vomiting. Colostomy bag full of air. No stool or liquid noted. Plan is for the patient to start clear liquid diet and advanced as tolerated. We will follow results of pathology. Continue to follow a.m. labs. Mother at bedside, updated. 04/27 patient is seen and, discussed with the RN, no acute events overnight, alert oriented x3, tolerating clear liquid diet. Passing gas in the colostomy bag but no bowel movement yet. Patient was swollen to the right upper extremity. Doppler showing deep venous thrombosis involving the right axillary vein and brachial veins, nonocclusive thrombosis of the right cephalic vein (superficial venous thrombosis). Correlate clinically for pulmonary embolism risk. Hemoglobin of 10.4, hematocrit 35.9, platelet count of 18.7. Findings of Doppler discussed with the mother, we will start the patient on heparin drip, risks versus benefits discussed, agreed to proceed with the anticoagulation. We will insert midline in the left upper extremity. We will continue to clinically monitor the patient.status post CT-guided biopsy of left anterior rib mass, 04/26/2025, follow up pathology. Continue to follow oncology input and recommendation. REVIEW OF SYSTEMS CONSTITUTIONAL: Denies fevers, chills, or night sweats. No unintentional weight loss reported. NEUROLOGICAL: Denies headache, amaurosis fugax, motor weakness, sensory deficit, vertigo/spinning sensation, gait abnormalities, or tremors. ENT: No hearing loss, otalgia, otorrhea, rhinitis, rhinorrhea, hoarseness, or sore throat. CARDIOVASCULAR: Denies any exertional angina, dyspnea on exertion, orthopnea, paroxysmal nocturnal dyspnea, palpitations, life-threatening arrhythmias, claudication. PULMONARY: Denies any shortness of breath, cough, phlegm/sputum, hemoptysis, pleuritic chest pain. SLEEP: Denies morning headaches, daytime somnolence or napping. Denies difficulty falling asleep, staying asleep, waking from sleep. Denies knowledge of snoring. GASTROINTESTINAL: Denies any type of dysphagia to either liquids or solids. Denies nausea, vomiting, pyrosis, early satiety, abdominal pain, diarrhea, constipation, or changes in stool consistency or caliber. Denies coffee-ground emesis, hematemesis, hematochezia, or melanotic stools. GENITOURINARY: Denies frequency, urgency, nocturia, hematuria or incontinence (Storage/Irritative symptoms.) Low urinary stream, straining to void, urinary intermittency or hesitancy, splitting of the voiding stream, terminal dribbling. ENDOCRINOLOGIC: Denies polyuria, polydipsia, polyphagia or heat/cold intolerances. HEMATOLOGIC: Denies thrombophilia/previous clots, or coagulopathy/bleeding disorders. ONCOLOGIC: Denies personal history of malignancy. DERMATOLOGIC: Denies rashes or pruritus. PSYCHIATRIC: Denies any suicidal or homicidal ideation. Denies hallucinations. PHYSICAL EXAM GENERAL APPEARANCE: Patient awake, following commands, NG tube to intermittent suction. NEUROLOGICAL: Cranial nerves II-XII grossly intact. Motor is 5/5 in bilateral upper and lower extremities proximal to distal. No sensory deficits. HEENT: Face is symmetric. Pupils are equal and reactive. Extraocular movements are intact. NECK: Supple. No JVD. No thyromegaly. No submental, submandibular, pre-/ postauricular, occipital or supraclavicular lymphadenopathy. CHEST: Normal chest expansion. No Telemetry. LUNGS: Absence of any rales, rhonchi or any wheezing. CARDIOVASCULAR: Regular. S1 and S2 normal. No appreciable rubs, murmurs or gallops. ABDOMEN: Liquid output colostomy bag noted. : Deferred. No Doe. EXTREMITIES: Mild swelling to the right knee area, lidocaine patch in place. SKIN: No skin breakdown. Vital Signs (last 8hr) Date Time Temp Pulse Resp B/P (MAP) Pulse Ox O2 Delivery O2 Flow Rate FiO2 04/27/25 12:24 97.5 104 18 118/68 93 Nasal Cannula 3.0 04/27/25 08:15 93 Nasal Cannula* 2 28 04/27/25 07:48 98.4 103 18 115/75 93 Nasal Cannula 3.0 04/27/25 07:08 107 21 04/27/25 07:06 107 21 N/Cannula Low lpm 3.0 LABS: Laboratory: Test 04/27/25 03:14 04/26/25 03:17 Range/Units White Blood Count 18.7 H 4.8-10.8 K/uL Red Blood Count 4.58 4.50-6.20 MIL/uL Hemoglobin 10.4 L 14.0-18.0 g/dL Hematocrit 35.9 L 42-54 % Mean Corpuscular Volume 78.4 L 79-99 fL Mean Corpuscular Hemoglobin 22.7 L 27.0-33.0 pg Mean Corpuscular Hemoglobin Concent 29.0 L 32.0-36.0 g/dL Red Cell Distribution Width 18.1 H 11.0-15.5 % Platelet Count 234 130-400 K/uL Mean Platelet Volume 11.4 H 7.5-10.5 fL Immature Granulocyte % (Auto) 5.5 H 0-1 % Neutrophils (%) (Auto) 76.1 40.0-77.0 % Lymphocytes (%) (Auto) 8.4 L 21.0-51.0 % Monocytes (%) (Auto) 8.8 3.0-13.0 % Eosinophils (%) (Auto) 0.6 0.0-8.0 % Basophils (%) (Auto) 0.6 0.0-5.0 % Neutrophils # (Auto) 14.2 H 1.8-7.7 K/uL Lymphocytes # (Auto) 1.6 1.0-4.8 K/uL Monocytes # (Auto) 1.7 H 0.1-1.0 K/uL Eosinophils # (Auto) 0.12 0.00-0.70 K/uL Basophils # (Auto) 0.11 0.00-0.20 K/uL Absolute Immature Granulocyte (auto 1.03 H 0-1 K/uL Nucleated Red Blood Cells 0.1 0.0-0.19 % Sodium Level 145 136-145 mmol/L Potassium Level 4.0 3.5-5.1 mmol/L Chloride Level 107 101-111 mmol/L Carbon Dioxide Level 28 21-32 mmol/L Blood Urea Nitrogen 24 H 7-18 mg/dL Creatinine 0.8 0.5-1.3 mg/dL Glomerular Filtration Rate Calc 118 >90 mL/min Random Glucose 113 H 70-105 mg/dL Total Calcium 8.7 8.5-10.1 mg/dL Magnesium Level 2.00 1.80-2.40 mg/dL Total Bilirubin 1.1 H 0.2-1.0 mg/dL Aspartate Amino Transf (AST/SGOT) 26 10-37 U/L Alanine Aminotransferase (ALT/SGPT) 13 12-78 U/L Alkaline Phosphatase 175 H 50-136 U/L Total Protein 7.0 6.0-8.3 g/dL Albumin 1.9 L 3.5-5.0 g/dL Prothrombin Time 12.4 H 9.6-11.6 SEC Prothromb Time International Ratio 1.19 H 0.85-1.15 Activated Partial Thromboplast Time 29.2 26.3-35.5 SEC Current Medications Medications (Trade) Dose Ordered Sig/Checo Route PRN Reason Start Time Stop Time Status Last Admin Dose Admin Acetaminophen (TYLenol 325MG TAB) 650 mg Q6H PRN PO FEVER/pain 1-3 04/19/25 22:00 05/19/25 21:59 04/21/25 02:20 650 MG Cefepime HCl (MAXipime 2 gm vial) 2 gm Q8H IVPB 04/22/25 13:00 05/02/25 12:59 04/27/25 06:06 2 GM Ceftriaxone Sodium (ROCEphine 1G INJ) 1 gm Q24H IVPB 04/20/25 10:00 04/22/25 12:41 DC 04/22/25 10:53 1 GM Dextrose 1,000 ml @ 50 mls/hr Q20H IV 04/25/25 08:00 04/25/25 16:53 DC 04/25/25 10:38 100 MLS/HR Doxycycline Hyclate 250 ml @ 125 mls/hr Q12H IV 04/21/25 08:30 04/22/25 12:41 DC 04/22/25 08:14 125 MLS/HR Enoxaparin Sodium (Lovenox) 40 mg DAILY SQ 04/20/25 09:00 04/22/25 20:00 DC 04/22/25 08:14 40 MG Enoxaparin Sodium (Lovenox) 40 mg Q12H SQ 04/22/25 21:00 05/20/25 08:59 04/27/25 08:10 40 MG Famotidine (Pepcid 20mg Tab) 20 mg DAILY PO 04/20/25 09:00 05/20/25 08:59 04/27/25 08:11 20 MG Furosemide (LASix 20MG VIAL) 20 mg Q8H IV 04/24/25 19:00 04/25/25 03:01 DC 04/25/25 03:06 20 MG Hydralazine HCl (APRESOLine 20MG INJ) 5 mg Q6H PRN IV For:SBP above 160;DBP above 90 04/20/25 16:00 05/20/25 15:59 Hydralazine HCl (APRESOLine 20MG INJ) 10 mg Q6H PRN IV For:SBP above 160;DBP above 90 04/19/25 22:00 04/20/25 10:52 DC Hydromorphone HCl (DiLAUDid 0.5MG INJ) 0.5 mg Q4H PRN IVP SEVERE PAIN (7-10) 04/22/25 20:00 04/27/25 19:59 Iron Sucrose (VenoFER) 200 mg DAILY IV 04/26/25 09:00 04/28/25 11:00 04/27/25 09:20 200 MG Ketorolac Tromethamine (toRADol) 15 mg Q6H PRN IV MODERATE PAIN (4-6) 04/20/25 11:00 04/22/25 19:58 DC 04/20/25 22:08 15 MG Labetalol HCl (TRANdate 20MG SYG) 10 mg Q6H PRN IV SUSTAINED HR >120 04/23/25 00:00 05/23/25 00:00 Lactated Ringer's 1,000 ml @ 50 mls/hr Q20H IV 04/21/25 12:30 04/25/25 07:47 DC 04/24/25 02:58 75 MLS/HR Lactated Ringer's 1,000 ml @ 100 mls/hr Q10H IV 04/19/25 22:00 04/20/25 10:52 DC 04/21/25 12:40 100 MLS/HR Lactulose (Constulose 20gm/ 30ml Udcup) 20 gm BID PRN PO CONSTIPATION 04/19/25 22:00 05/19/25 21:59 Lidocaine (Lidocaine Patch 4%) 1 each DAILY TP 04/21/25 09:00 05/21/25 08:59 04/27/25 08:10 1 EACH Magnesium Sulfate 50 ml @ 0 mls/hr PROTOCOL IV 04/21/25 08:30 05/21/25 08:29 04/24/25 06:11 25 MLS/HR Metronidazole/ Sodium Chloride 100 ml @ 100 mls/hr Q8H6 IVPB 04/22/25 14:00 05/02/25 13:59 04/27/25 06:06 100 MLS/HR Morphine Sulfate (morPHINE 4MG SYG) 4 mg Q4H PRN IVP SEVERE PAIN (7-10) 04/19/25 22:00 04/20/25 10:52 DC Nystatin (NystOP 15 GM POWDER) 1 APPLICATION BID TP 04/26/25 14:00 05/26/25 13:59 04/27/25 08:12 1 APPL Ondansetron HCl (zoFRAN 4MG INJ) 4 mg Q6H PRN IV NAUSEA/VOMITING 04/19/25 22:00 05/19/25 21:59 04/24/25 22:19 4 MG Promethazine HCl (Phenergan) 12.5 mg Q8H5 PRN IM NAUSEA/VOMITING 04/22/25 12:30 05/22/25 12:29 04/22/25 12:25 12.5 MG Sodium Chloride 500 ml @ 0 mls/hr Q0M STAT IV 04/22/25 13:17 04/22/25 13:22 DC 04/22/25 14:39 600 MLS/HR Vancomycin HCl (Vancomycin Protocol) 1 each AD IV 04/22/25 15:00 04/23/25 22:23 DC DIAGNOSTICS / RADIOLOGY: [ ] ASSESSMENT: Severe sepsis with MODS, resolved Leukocytosis Gram-positive cocci bacteremia Status post left rib biopsy by IR on 04/26/2025 New right upper lobe spiculated infiltrative mass measuring 5.4 x 4.6 cm infiltrating mediastinal pleura and albumin in the right main pulmonary artery Bulky mediastinal lymphadenopathy with the largest node measuring 4 cm involving the right paratracheal, prevascular, and subcarinal stations Multiple bilateral spiculated pulmonary nodules consistent with metastatic disease progression Bilateral marked diffuse adrenal enlargement likely metastatic or hyperplastic Left iliac fossa 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 Right upper extremity DVT involving the axillary and brachial veins PLAN: patient is seen and, discussed with the RN, no acute events overnight, alert oriented x3, tolerating clear liquid diet. Passing gas in the colostomy bag but no bowel movement yet. Patient was swollen to the right upper extremity. Doppler showing deep venous thrombosis involving the right axillary vein and brachial veins, nonocclusive thrombosis of the right cephalic vein (superficial venous thrombosis). Correlate clinically for pulmonary embolism risk. Hemoglobin of 10.4, hematocrit 35.9, platelet count of 18.7. Findings of Doppler discussed with the mother, we will start the patient on heparin drip, risks versus benefits discussed, agreed to proceed with the anticoagulation. We will insert midline in the left upper extremity. We will continue to clinically monitor the patient.status post CT-guided biopsy of left anterior rib mass, 04/26/2025, follow up pathology. Continue to follow oncology input and recommendation. NEURO: Minimize central acting medications as possible. Fall Precautions. Well lighted room through the day and minimize interruptions through the night to prevent acute delirium. PULMONARY: Supplemental 02 as needed BiPAP as necessary, for respiratory distress Titrate Fio2 to keep Spo2 > or = 90% DuoNebs and CPT as needed IS hourly while awake for pulmonary hygiene prn Out of bed to chair as tolerated Maintain aspiration precautions at all times CARDIOVASCULAR: Follow hemodynamics. Vital signs per facility protocol GI & NUTRITION: Continue nutritional support Aspirations precautions Prokinetic agents and laxatives as needed KIDNEYS & ELECTROLYTES: Strict monitoring of intake and output Daily weights Avoid nephrotoxic agents Monitor electrolytes and replace as needed Goal urine output of 30mL/hr or 0.5mL/kg/hr Medications to be dosed according to renal function. Avoid contrast if possible ENDOCRINE: Maintain blood glucose between 100-180 at all times. Insulin sliding scale for blood glucose management Hypoglycemia and hyperglycemia protocol in place INFECTIOUS DISEASE: Trend temperature, WBC and procalcitonin level Follow cultures, deescalate antibiotics as soon as possible. Panculture if new onset fever HEMATOLOGY & COAGULATION: Monitor H&H. Keep Hgb > 7 Transfuse 1 unit of PRBC for Hgb < 7 Transfuse 1 pack of platelets of platelets < 20, 000 Watch for any signs and symptoms of bleeding SKIN: Pressure ulcer prevention per facility protocol Specialty mattress as needed ORTHO/REHAB Continue PT/OT PRN: MEDICATIONS Tylenol 650 mg po every 4 hrs for fever zofran 4 mg IV every 6 hrs for n/v Hydralazine 5 mg IV every 4 hrs systolic pressure > 160 bowel regiment: lactulose 20 gm PO BID PRN constipation Supportive measures: Continue GI and DVT prophylaxis Disposition: Pending improvement in clinical condition All questions answered time spent: > 35 min TITA PETERSON MD Apr 27, 2025 13:06
[2025-04-27 14:31] LABS: INR 1.35 (0.85-1.15)
--- NOTE | 2025-04-27 19:37 | PN ---
INFECTIOUS DISEASE PROGRESS NOTE Date of Service: Apr 27, 2025 SUBJECTIVE: This is a 35-year-old male patient who was seen and examined at bedside in room 223. Patient is awake, alert and oriented x3. Patient is status post CT-guided lung biopsy day # 1. Continues on cefepime and metronidazole IV. Diet being advanced as tolerated. No reports of nausea or vomiting. Per report plan is for a port a cath placement prior to discharge. Right arm swollen and preliminary venous Doppler results showing a deep vein thrombosis. We will continue to follow patient. PHYSICAL EXAM EYES: Anicteric. Pupils equal and reactive. HENT: No oral thrush seen, moist Oral mucosa. NG tube to low intermittent suction. NECK: Supple, no JVD or thyromegaly. LUNGS: Good air entry. No rales, no rhonchi. CARDIOVASCULAR: S1, S2 regular. No murmur heard. ABDOMEN: Abdomen is large but Soft, bowel sounds present. Abdominal scar and Left colostomy. CENTRAL NERVOUS SYSTEM: Awake, alert, oriented x 3. SKIN: No rashes, no swelling. LYMPHATICS: No peripheral lymphadenopathy. MUSCULOSKELETAL: Right knee pain. EXTREMITIES: No cyanosis or clubbing. BACK: No deformity, no pressure ulcer. GENITOURINARY: No dysuria or hematuria. Vital Sign (Last 12 Hours) 04/27/25 04/27/25 04/27/25 04/27/25 07:48 08:15 12:24 16:00 Temp 98.4 97.5 97.9 Pulse 103 104 102 Resp 18 18 18 B/P (MAP) 115/75 118/68 105/65 Pulse Ox 93 93 93 94 O2 Delivery Nasal Cannula Nasal Cannula* Nasal Cannula Nasal Cannula O2 Flow Rate 3.0 2 3.0 3.0 FiO2 28 Intake & Output (last 24hrs) 04/26/25 04/26/25 04/27/25 15:00 23:00 07:00 Intake Total 880.0 ml Output Total 400 ml 325 ml 400 ml Balance -400 ml 555.0 ml -400 ml LABS: Laboratory: Test 04/27/25 14:10 04/27/25 03:14 Range/Units Prothrombin Time 13.9 H 9.6-11.6 SEC Prothromb Time International Ratio 1.35 H 0.85-1.15 Activated Partial Thromboplast Time 36.0 H 26.3-35.5 SEC White Blood Count 18.7 H 4.8-10.8 K/uL Red Blood Count 4.58 4.50-6.20 MIL/uL Hemoglobin 10.4 L 14.0-18.0 g/dL Hematocrit 35.9 L 42-54 % Mean Corpuscular Volume 78.4 L 79-99 fL Mean Corpuscular Hemoglobin 22.7 L 27.0-33.0 pg Mean Corpuscular Hemoglobin Concent 29.0 L 32.0-36.0 g/dL Red Cell Distribution Width 18.1 H 11.0-15.5 % Platelet Count 234 130-400 K/uL Mean Platelet Volume 11.4 H 7.5-10.5 fL Immature Granulocyte % (Auto) 5.5 H 0-1 % Neutrophils (%) (Auto) 76.1 40.0-77.0 % Lymphocytes (%) (Auto) 8.4 L 21.0-51.0 % Monocytes (%) (Auto) 8.8 3.0-13.0 % Eosinophils (%) (Auto) 0.6 0.0-8.0 % Basophils (%) (Auto) 0.6 0.0-5.0 % Neutrophils # (Auto) 14.2 H 1.8-7.7 K/uL Lymphocytes # (Auto) 1.6 1.0-4.8 K/uL Monocytes # (Auto) 1.7 H 0.1-1.0 K/uL Eosinophils # (Auto) 0.12 0.00-0.70 K/uL Basophils # (Auto) 0.11 0.00-0.20 K/uL Absolute Immature Granulocyte (auto 1.03 H 0-1 K/uL Nucleated Red Blood Cells 0.1 0.0-0.19 % Sodium Level 145 136-145 mmol/L Potassium Level 4.0 3.5-5.1 mmol/L Chloride Level 107 101-111 mmol/L Carbon Dioxide Level 28 21-32 mmol/L Blood Urea Nitrogen 24 H 7-18 mg/dL Creatinine 0.8 0.5-1.3 mg/dL Glomerular Filtration Rate Calc 118 >90 mL/min Random Glucose 113 H 70-105 mg/dL Total Calcium 8.7 8.5-10.1 mg/dL Magnesium Level 2.00 1.80-2.40 mg/dL Total Bilirubin 1.1 H 0.2-1.0 mg/dL Aspartate Amino Transf (AST/SGOT) 26 10-37 U/L Alanine Aminotransferase (ALT/SGPT) 13 12-78 U/L Alkaline Phosphatase 175 H 50-136 U/L Total Protein 7.0 6.0-8.3 g/dL Albumin 1.9 L 3.5-5.0 g/dL ASSESSMENT: Hypoxic respiratory failure, requiring oxygen support. Staphylococcus epidermidis bacteremia, which is a contaminant. Leukocytosis. Right knee osteoarthritis. Bilateral pulmonary nodules consistent with metastatic disease, s/p lung biopsy. Small-bowel obstruction. Acute renal failure, improving. Morbid obesity. Recent Colorectal mass with resection and colostomy creation. Right upper extremity DVT. PLAN: Continue cefepime. Continue metronidazole. Continue oxygen support. Continue GI prophylaxis. Diet being advanced as tolerated. Continue pain management. Avoid nephrotoxic medications. This case was reviewed and discussed with my supervising physician Dr. Richards and the above assessment and plan was formulated and agreed upon. ATTESTATION BY PHYSICIAN I have seen and examined the patient. I reviewed the documentation, medical decision making, and treatment plan as noted by the mid-level provider above. I agree with the findings and plan of care. JULIANNA RICHARDS MD, [facility] Apr 27, 2025 19:37
--- NOTE | 2025-04-27 22:22 | PN ---
FOLLOWUP PROGRESS NOTE SUBJECTIVE: A 35-year-old male with a history of colon mass, status post resection in the past. He has a history of colostomy. The patient was admitted to the hospital and found to have metastatic disease. The patient is status post lung biopsy. He has had acute on chronic renal dysfunction in the hospital. The patient also with bacteremia, remains on the antibiotics and he is being seen as a followup visit for all the above. PHYSICAL EXAMINATION: GENERAL: He is a young male, obese, lying in bed on the medical floor. HEENT: Head is atraumatic. Pupils equal, round and reactive to light. Oropharynx is without exudate. Nares are clear. NECK: There is no JVP. No thyromegaly. CARDIOVASCULAR: Regular. There is no S3 or S4 gallop. LUNGS: Coarse, wheezing throughout. ABDOMEN: Soft, nondistended, nontender. EXTREMITIES: Reveal no clubbing. No cyanosis. NEUROLOGICAL: He is awake. He is alert. LABORATORY DATA: Hemoglobin 10, hematocrit 35, white blood cell count 18,000, BUN 24, creatinine 0.8. IMPRESSION: Renal dysfunction. Bacteremia. Colon mass with metastases. PLAN: The patient is status post lung biopsy. Workup is ongoing per Oncology. The patient with bacteremia, remains on the antibiotics. He has been seen by case management for final disposition. He has had acute renal failure in the hospital. Creatinine has improved. The patient's electrolytes have all been aggressively repleted. He is encouraged with his therapy. All labs to be repeated in the morning. Once the patient is discharged, he could follow up in the [facility]. TID: [id number] RECEIPT: [id number]
[2025-04-28] VITALS (14 sets, daily range): BP systolic 105–134; BP diastolic 65–85; PULSE 100–110; RESP 18–28; TEMP 97.5–98.8; O2SAT 93–98
[2025-04-28 04:58] LABS: IMMATURE GRANULOCYTE ABSOLUTE 2.16 K/uL (0-1); NUCLEATED RED BLOOD CELLS 0.1 % (0.0-0.19); PLATELET COUNT (AUTO) 230 K/uL (130-400); RED BLOOD CELL COUNT(AUTO) 4.31 MIL/uL (4.50-6.20); RED CELL DISTRIBUTION WIDTH 18.1 % (11.0-15.5); WHITE BLOOD COUNT (AUTO) 21.5 K/uL (4.8-10.8)
[2025-04-28 05:15] LABS: ASPARTATE AMINOTRANSFERASE 28.0 U/L (10-37); CREATININE 0.8 mg/dL (0.5-1.3); GLOMERULAR FILTR. RATE CALC 118.0 mL/min (>90); GLUCOSE,RANDOM 123.0 mg/dL (70-105); SODIUM SERUM 136.0 mmol/L (136-145); TOTAL PROTEIN, SERUM 6.7 g/dL (6.0-8.3); UREA NITROGEN, BLOOD 20.0 mg/dL (7-18)
--- NOTE | 2025-04-28 11:36 | PN ---
[facility] PROGRESS NOTE Date of Service: Apr 28, 2025 Time of Service: : SUBJECTIVE: 04/20 the patient has been seen and examined at bedside, case discussed with the RN, no acute events overnight, the time of my visit, the patient is awake, following commands, blood pressure 140/90, afebrile, saturating normal on room air. The patient is morbidly obese, he uses a CPAP at home, currently CPAP at bedside during my visit. WBC 14.0, hemoglobin 10.4, hematocrit 34.8, platelet count of 305. CMP shows sodium 141, potassium 3.5, BUN 70, creatinine 0.9, iron level of 25. X-ray of the knee showing moderate to severe three, power mental right knee osteoarthritis, predominantly in the lateral compartment, with small joint effusion. No acute fracture. Orthopedic physician consultation requested, we will follow input and recommendation. MRI of the right knee requested, however due to morbid obesity, might not be able to do it. Discussed with the mother is at the bedside, all questions answered, in agreement. 04/21 patient has been seen and examined at bedside, case discussed with the RN, no acute events overnight, the time my visit he is awake, following commands, admits mild dry nonproductive cough, spiked fever 102.6. Denied chest pain, shortness shortness for breath, no nausea, no vomiting, no abdominal discomfort. The patient has a colostomy bag, on examination, liquid stool noted. WBC slowly trending down at 12.7, hemoglobin stable 11.6. Magnesium 1.7. Added doxycycline 100 mg IV q.12 hours. Follow serology to include SARS antigen, influenza and rapid strep. We will give magnesium sulfate 2 g IV x1. We will order GI stool panel. Patient is scheduled for MRI to the right knee today, continue lidocaine patch, discussed with the orthopedic physician today, we will follow input and recommendation. 04/22 patient is seen and examined at bedside, discussed with the RN. Patient currently feels nauseated. He admits mild discomfort to the right lower quadrant. BP 135/77, mildly tachycardic at 108, saturating normal on room air. Maximum temperature last 24 hours 102.7. CBC shows a hemoglobin of 11.6, hematocrit 35.7, platelet count of 276, with a platelet count of 23.8. Creatinine 2.1. MRI of the right knee shows tricompartmental osteoarthritis with osteophytosis and diffuse cartilage loss, medial and lateral meniscal with complex degenerative tear involving posterior horns and bodies, meniscal tear severity grade 3, full-thickness chondral defect of the lateral femoral condyle, with a underlying subchondral edema, small reactive joint effusion with mild synovitis. We will upgraded the patient to the PCU, LR at 50 mL/hours, follow repeat CBC, CMP and magnesium level. Continue Rocephin and doxycycline IV. We will order a CT of the abdomen and pelvis without contrast to rule out intra- abdominal acute pathology. Orthopedic input noted and appreciated, patient with bad arthritis, we will finally benefit from knee replacement, however considering his morbid obesity, it is not indicated right now. Recommended co nservative approach. Mother at bedside, all questions answered, updated, in agreement with plan of care. 04/23 patient is seen and examined at bedside, discussed with the RN, no acute events overnight, patient upgraded to the ICU yesterday due to sepsis and developing small bowel obstruction. Today the patient is awake, following commands, he is NPO, NG tube to intermittent suction, BP 120/76, heart rate of 111, saturating 96% 3 L nasal cannula, temperature 98.4. WBC of 27.6, hemoglobin 10.6, hematocrit 35.5, platelet count 240, creatinine improved to 1.2. Septic workup with blood culture positive for Staphylococcus epidermidis. Echocardiogram and chest x-ray pending. Patient will remain admitted to the ICU, continue broad-spectrum IV antibiotics, we will follow surgical input recommendation. Continue to follow critical Care and ID input and recommendation. And we will update the mother regarding results of CT of the abdomen pelvis and further plan of care when she is present in the room. CT abdomen and pelvis reviewed, as follows: * Patient is undergoing mass evaluation. * Interval progression since 22 April 2025 with a new right upper lobe spiculated infiltrative mass measuring 5.4 ??? 4.6 cm infiltrating mediastinal pleura and abutting the right main pulmonary artery. * Bulky mediastinal lymphadenopathy with largest node measuring 4 cm, involving right paratracheal, prevascular, precarinal, and subcarinal stations, increased since prior study. * Multiple bilateral spiculated pulmonary nodules (1???2.5 cm), consistent with metastatic disease progression. * Bilateral marked diffuse adrenal enlargement (Right 5.9 ??? 3.6 cm, Left 7.6 ??? 5.4 cm), likely metastatic or hyperplastic. 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 * Degenerative thoracolumbar spondylosis with L4 vertebral body wedging (30???40% height loss), unchanged. * Comparison is made with the exam dated 22 April 2025. Overall findings indicate worsening metastatic disease with new primary and gloria lesions and mechanical bowel obstruction requiring clinical and surgical correlation. Recommendations include oncologic evaluation and PET-CT staging, alongside urgent surgical consultation for bowel obstruction. 04/24 patient is seen and examined at bedside, discussed with the RN, no acute events overnight, patient downgraded from the ICU to the PCU, he remains NPO, NG tube connected to intermittent suction, output in the last 12 hours 200 mL. BP 146/150, heart rate of 101, afebrile, saturating 96-97% on nasal cannula. CBC shows a hemoglobin of 9.9, hematocrit 33.5, platelet count of 235, with WBC of 21.3. CMP with sodium 146, potassium 3.8, BUN of 18, creatinine 0.9, magnesium 1.8. Blood culture 04/21/2025 positive for Staphylococcus epidermidis. Repeat blood cultures 04/23/2025 no growth after 24 hours echocardiogram 04/23/2025 LVEF 50-55%, no left ventricle thrombus, no intracardiac masses, no valvular vegetations. Today chest x-ray pending. Patient will remain admitted to the PCU, NPO, intermittent suction, continue to follow surgical input recommendation, continue broad-spectrum IV antibiotics, follow WBC in a.m.. Follow KUB. I HAVE CONTACTED THE DEPARTMENT OF MEDICAL RECORDS [facility], SPOKE WITH ZENA AT PHONE NUMBER [phone], I HAVE REQUESTED MEDICAL RECORDS. WE WILL FOLLOW UP. 04/25 patient is seen and examined at bedside, case discussed with the RN, no acute events overnight, he remains comfortably in bed, NPO, NG tube to intermittent suction, he is awake, following commands, BP 128/90, area of 101, afebrile. Still feels distended. On examination colostomy bag, enema output noted. KUB pending. KUB from 04/24/2025 showing markedly dilated small bowel loops up to 5.6 cm, consistent with distal small-bowel obstruction, no pneumoperitoneum, pneumatosis intestinalis or portal venous gas. I received medical records from [facility], patient was admitted on 11/19/2024 and discharged 12/08/2024. Areolar in the hospital patient underwent exploratory laparoscopy, laparotomy and creation of transverse loop colostomy 11/28/2024. Patient was evaluated by oncologist Braulio Bell. 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 Per my discussion with the mother, from [facility] the patient was discharged to [facility] to recover and from there he went home. Patient has not had a follow up appointment with the general surgeon or oncologist after that. We have requested Oncology consultation here during this admission. Pathology report from rectal biopsy shows moderately differentiated adenocarcinoma, then new pulmonary nodules and mediastinal lymphadenopathy as per CT scan indicates the possibility of metastatic disease. CEA is [id number]. Re quested pulmonary nodule biopsy by IR. Patient will remain admitted to the PCU, we will continue NG tube to intermittent suction, NPO, TPN, follow surgical input and recommendation. Follow repeat KUB. Mother at bedside, updated, all questions answered. Plan of care discussed with the patient as well, in agreement. 04/26 patient is seen and examined at bedside, discussed with the RN, no acute events overnight, patient is status post CT-guided biopsy of left anterior rib mass, 04/26/2025, tolerated the procedure well. At the time of my visit, he is awake, following commands, denied chest pain, shortness shortness for breath, no nausea, no vomiting. Colostomy bag full of air. No stool or liquid noted. Plan is for the patient to start clear liquid diet and advanced as tolerated. We will follow results of pathology. Continue to follow a.m. labs. Mother at bedside, updated. 04/27 patient is seen and, discussed with the RN, no acute events overnight, alert oriented x3, tolerating clear liquid diet. Passing gas in the colostomy bag but no bowel movement yet. Patient was swollen to the right upper extremity. Doppler showing deep venous thrombosis involving the right axillary vein and brachial veins, nonocclusive thrombosis of the right cephalic vein (superficial venous thrombosis). Correlate clinically for pulmonary embolism risk. Hemoglobin of 10.4, hematocrit 35.9, platelet count of 18.7. Findings of Doppler discussed with the mother, we will start the patient on heparin drip, risks versus benefits discussed, agreed to proceed with the anticoagulation. We will insert midline in the left upper extremity. We will continue to clinically monitor the patient.status post CT-guided biopsy of left anterior rib mass, 04/26/2025, follow up pathology. Continue to follow oncology input and recommendation. 04/28 patient is seen and, discussed with the RN, no acute events overnight, alert oriented x3, remains admitted to the PCU, alert oriented x3 at the time of my visit, tolerating soft diet, passing gas but no BM yet. Doppler showing deep venous thrombosis involving the right axillary vein and brachial veins, nonocclusive thrombosis of the right cephalic vein (superficial venous th rombosis). Continue heparin drip. Oncology input noted and appreciated. Patient will need Port-A-Cath insertion before discharge home. status post CT- guided biopsy of left anterior rib mass, 04/26/2025, follow up pathology. Continue broad-spectrum IV antibiotics, trend WBC in a.m. per mother at bedside, updated. REVIEW OF SYSTEMS CONSTITUTIONAL: Denies fevers, chills, or night sweats. No unintentional weight loss reported. NEUROLOGICAL: Denies headache, amaurosis fugax, motor weakness, sensory deficit, vertigo/spinning sensation, gait abnormalities, or tremors. ENT: No hearing loss, otalgia, otorrhea, rhinitis, rhinorrhea, hoarseness, or sore throat. CARDIOVASCULAR: Denies any exertional angina, dyspnea on exertion, orthopnea, paroxysmal nocturnal dyspnea, palpitations, life-threatening arrhythmias, claudication. PULMONARY: Denies any shortness of breath, cough, phlegm/sputum, hemoptysis, pleuritic chest pain. SLEEP: Denies morning headaches, daytime somnolence or napping. Denies difficulty falling asleep, staying asleep, waking from sleep. Denies knowledge of snoring. GASTROINTESTINAL: Denies any type of dysphagia to either liquids or solids. Denies nausea, vomiting, pyrosis, early satiety, abdominal pain, diarrhea, constipation, or changes in stool consistency or caliber. Denies coffee-ground emesis, hematemesis, hematochezia, or melanotic stools. GENITOURINARY: Denies frequency, urgency, nocturia, hematuria or incontinence (Storage/Irritative symptoms.) Low urinary stream, straining to void, urinary intermittency or hesitancy, splitting of the voiding stream, terminal dribbling. ENDOCRINOLOGIC: Denies polyuria, polydipsia, polyphagia or heat/cold intolerances. HEMATOLOGIC: Denies thrombophilia/previous clots, or coagulopathy/bleeding disorders. ONCOLOGIC: Denies personal history of malignancy. DERMATOLOGIC: Denies rashes or pruritus. PSYCHIATRIC: Denies any suicidal or homicidal ideation. Denies hallucinations. PHYSICAL EXAM GENERAL APPEARANCE: Patient awake, following commands, NG tube to intermittent suction. NEUROLOGICAL: Cranial nerves II-XII grossly intact. Motor is 5/5 in bilateral upper and lower extremities proximal to distal. No sensory deficits. HEENT: Face is symmetric. Pupils are equal and reactive. Extraocular movements are intact. NECK: Supple. No JVD. No thyromegaly. No submental, submandibular, pre- /postauricular, occipital or supraclavicular lymphadenopathy. CHEST: Normal chest expansion. No Telemetry. LUNGS: Absence of any rales, rhonchi or any wheezing. CARDIOVASCULAR: Regular. S1 and S2 normal. No appreciable rubs, murmurs or gallops. ABDOMEN: Liquid output colostomy bag noted. : Deferred. No Doe. EXTREMITIES: Mild swelling to the right knee area, lidocaine patch in place. SKIN: No skin breakdown. Vital Signs (last 8hr) Date Time Temp Pulse Resp B/P (MAP) Pulse Ox O2 Delivery O2 Flow Rate FiO2 04/28/25 07:00 98.1 104 18 105/71 96 Nasal Cannula 2.0 04/28/25 06:45 107 20 04/28/25 06:43 107 20 N/Cannula Low lpm 3.0 32 04/28/25 04:00 98.8 105 22 111/72 92 CPAP LABS: Laboratory: Test 04/28/25 04:15 04/27/25 14:10 04/27/25 03:14 Range/Units White Blood Count 21.5 H 4.8-10.8 K/uL Red Blood Count 4.31 L 4.50-6.20 MIL/uL Hemoglobin 9.9 L 14.0-18.0 g/dL Hematocrit 33.3 L 42-54 % Mean Corpuscular Volume 77.3 L 79-99 fL Mean Corpuscular Hemoglobin 23.0 L 27.0-33.0 pg Mean Corpuscular Hemoglobin Concent 29.7 L 32.0-36.0 g/dL Red Cell Distribution Width 18.1 H 11.0-15.5 % Platelet Count 230 130-400 K/uL Mean Platelet Volume 10.8 H 7.5-10.5 fL Immature Granulocyte % (Auto) 10.1 H 0-1 % Neutrophils (%) (Auto) 71.5 40.0-77.0 % Lymphocytes (%) (Auto) 9.0 L 21.0-51.0 % Monocytes (%) (Auto) 7.7 3.0-13.0 % Eosinophils (%) (Auto) 1.0 0.0-8.0 % Basophils (%) (Auto) 0.7 0.0-5.0 % Neutrophils # (Auto) 15.4 H 1.8-7.7 K/uL Lymphocytes # (Auto) 1.9 1.0-4.8 K/uL Monocytes # (Auto) 1.7 H 0.1-1.0 K/uL Eosinophils # (Auto) 0.21 0.00-0.70 K/uL Basophils # (Auto) 0.15 0.00-0.20 K/uL Absolute Immature Granulocyte (auto 2.16 H 0-1 K/uL Nucleated Red Blood Cells 0.1 0.0-0.19 % Red Blood Cell Morphology See comments Activated Partial Thromboplast Time 105.9 #*H 26.3-35.5 SEC Sodium Level 136 136-145 mmol/L Potassium Level 3.9 3.5-5.1 mmol/L Chloride Level 101 101-111 mmol/L Carbon Dioxide Level 27 21-32 mmol/L Blood Urea Nitrogen 20 H 7-18 mg/dL Creatinine 0.8 0.5-1.3 mg/dL Glomerular Filtration Rate Calc 118 >90 mL/min Random Glucose 123 H 70-105 mg/dL Total Calcium 8.4 L 8.5-10.1 mg/dL Total Bilirubin 0.9 0.2-1.0 mg/dL Aspartate Amino Transf (AST/SGOT) 28 10-37 U/L Alanine Aminotransferase (ALT/SGPT) 13 12-78 U/L Alkaline Phosphatase 152 H 50-136 U/L Total Protein 6.7 6.0-8.3 g/dL Albumin 1.7 L 3.5-5.0 g/dL Prothrombin Time 13.9 H 9.6-11.6 SEC Prothromb Time International Ratio 1.35 H 0.85-1.15 Magnesium Level 2.00 1.80-2.40 mg/dL Current Medications Medications (Trade) Dose Ordered Sig/Checo Route PRN Reason Start Time Stop Time Status Last Admin Dose Admin Acetaminophen (TYLenol 325MG TAB) 650 mg Q6H PRN PO FEVER/pain 1-3 04/19/25 22:00 05/19/25 21:59 04/21/25 02:20 650 MG Cefepime HCl (MAXipime 2 gm vial) 2 gm Q8H IVPB 04/22/25 13:00 05/02/25 12:59 04/28/25 09:22 2 GM Ceftriaxone Sodium (ROCEphine 1G INJ) 1 gm Q24H IVPB 04/20/25 10:00 04/22/25 12:41 DC 04/22/25 10:53 1 GM Dextrose 1,000 ml @ 50 mls/hr Q20H IV 04/25/25 08:00 04/25/25 16:53 DC 04/25/25 10:38 100 MLS/HR Doxycycline Hyclate 250 ml @ 125 mls/hr Q12H IV 04/21/25 08:30 04/22/25 12:41 DC 04/22/25 08:14 125 MLS/HR Enoxaparin Sodium (Lovenox) 40 mg DAILY SQ 04/20/25 09:00 04/22/25 20:00 DC 04/22/25 08:14 40 MG Enoxaparin Sodium (Lovenox) 40 mg Q12H SQ 04/22/25 21:00 04/27/25 13:24 DC 04/27/25 08:10 40 MG Famotidine (Pepcid 20mg Tab) 20 mg DAILY PO 04/20/25 09:00 05/20/25 08:59 04/28/25 09:22 20 MG Furosemide (LASix 20MG VIAL) 20 mg Q8H IV 04/24/25 19:00 04/25/25 03:01 DC 04/25/25 03:06 20 MG Heparin Sodium (Porcine) (HEParin 5,000 UNIT VIAL) *calculation based on ACTUAL B... AD PRN IV HEPARIN PROTOCOL 04/27/25 14:00 05/27/25 13:59 Heparin Sodium/ Dextrose 250 ml @ 0 mls/hr Q6H IV 04/27/25 14:00 05/27/25 13:59 04/28/25 06:43 25 MLS/HR Hydralazine HCl (APRESOLine 20MG INJ) 5 mg Q6H PRN IV For:SBP above 160;DBP above 90 04/20/25 16:00 05/20/25 15:59 Hydralazine HCl (APRESOLine 20MG INJ) 10 mg Q6H PRN IV For:SBP above 160;DBP above 90 04/19/25 22:00 04/20/25 10:52 DC Hydromorphone HCl (DiLAUDid 0.5MG INJ) 0.5 mg Q4H PRN IVP SEVERE PAIN (7-10) 04/22/25 20:00 04/27/25 19:59 DC Iron Sucrose (VenoFER) 200 mg DAILY IV 04/26/25 09:00 04/28/25 11:00 DC 04/28/25 09:20 200 MG Ketorolac Tromethamine (toRADol) 15 mg Q6H PRN IV MODERATE PAIN (4-6) 04/20/25 11:00 04/22/25 19:58 DC 04/20/25 22:08 15 MG Labetalol HCl (TRANdate 20MG SYG) 10 mg Q6H PRN IV SUSTAINED HR >120 04/23/25 00:00 05/23/25 00:00 Lactated Ringer's 1,000 ml @ 50 mls/hr Q20H IV 04/21/25 12:30 04/25/25 07:47 DC 04/24/25 02:58 75 MLS/HR Lactated Ringer's 1,000 ml @ 100 mls/hr Q10H IV 04/19/25 22:00 04/20/25 10:52 DC 04/21/25 12:40 100 MLS/HR Lactulose (Constulose 20gm/ 30ml Udcup) 20 gm BID PRN PO CONSTIPATION 04/19/25 22:00 11/21/25 21:59 Lidocaine (Lidocaine Patch 4%) 1 each DAILY TP 04/21/25 09:00 05/21/25 08:59 04/28/25 09:22 1 EACH Magnesium Sulfate 50 ml @ 0 mls/hr PROTOCOL IV 04/21/25 08:30 05/21/25 08:29 04/24/25 06:11 25 MLS/HR Metronidazole/ Sodium Chloride 100 ml @ 100 mls/hr Q8H6 IVPB 04/22/25 14:00 05/02/25 13:59 04/28/25 06:51 100 MLS/HR Morphine Sulfate (morPHINE 4MG SYG) 4 mg Q4H PRN IVP SEVERE PAIN (7-10) 04/19/25 22:00 04/20/25 10:52 DC Nystatin (NystOP 15 GM POWDER) 1 APPLICATION BID TP 04/26/25 14:00 05/26/25 13:59 04/28/25 09:27 1 APPL Ondansetron HCl (zoFRAN 4MG INJ) 4 mg Q6H PRN IV NAUSEA/VOMITING 04/19/25 22:00 05/19/25 21:59 04/24/25 22:19 4 MG Promethazine HCl (Phenergan) 12.5 mg Q8H5 PRN IM NAUSEA/VOMITING 04/22/25 12:30 05/22/25 12:29 04/22/25 12:25 12.5 MG Sodium Chloride 500 ml @ 0 mls/hr Q0M STAT IV 04/22/25 13:17 04/22/25 13:22 DC 04/22/25 14:39 600 MLS/HR Vancomycin HCl (Vancomycin Protocol) 1 each AD IV 04/22/25 15:00 04/23/25 22:23 DC DIAGNOSTICS / RADIOLOGY: [ ] ASSESSMENT: Severe sepsis with MODS, resolved Leukocytosis Gram-positive cocci bacteremia Status post left rib biopsy by IR on 04/26/2025 New right upper lobe spiculated infiltrative mass measuring 5.4 x 4.6 cm infiltrating mediastinal pleura and albumin in the right main pulmonary artery Bulky mediastinal lymphadenopathy with the largest node measuring 4 cm involving the right paratracheal, prevascular, and subcarinal stations Multiple bilateral spiculated pulmonary nodules consistent with metastatic disease progression Bilateral marked diffuse adrenal enlargement likely metastatic or hyperplastic Left iliac fossa 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 Right upper extremity DVT involving the axillary and brachial veins PLAN: patient is seen and, discussed with the RN, no acute events overnight, alert oriented x3, remains admitted to the PCU, alert oriented x3 at the time of my visit, tolerating soft diet, passing gas but no BM yet. Doppler showing deep venous thrombosis involving the right axillary vein and brachial veins, nonocclusive thrombosis of the right cephalic vein (superficial venous thrombosis). Continue heparin drip. Oncology input noted and appreciated. Patient will need Port-A-Cath insertion before discharge home. status post CT- guided biopsy of left anterior rib mass, 04/26/2025, follow up pathology. Continue broad-spectrum IV antibiotics, trend WBC in a.m. per mother at bedside, updated. NEURO: Minimize central acting medications as possible. Fall Precautions. Well lighted room through the day and minimize interruptions through the night to prevent acute delirium. PULMONARY: Supplemental 02 as needed BiPAP as necessary, for respiratory distress Titrate Fio2 to keep Spo2 > or = 90% DuoNebs and CPT as needed IS hourly while awake for pulmonary hygiene prn Out of bed to chair as tolerated Maintain aspiration precautions at all times CARDIOVASCULAR: Follow hemodynamics. Vital signs per facility protocol GI & NUTRITION: Continue nutritional support Aspirations precautions Prokinetic agents and laxatives as needed KIDNEYS & ELECTROLYTES: Strict monitoring of intake and output Daily weights Avoid nephrotoxic agents Monitor electrolytes and replace as needed Goal urine output of 30mL/hr or 0.5mL/kg/hr Medications to be dosed according to renal function. Avoid contrast if possible ENDOCRINE: Maintain blood glucose between 100-180 at all times. Insulin sliding scale for blood glucose management Hypoglycemia and hyperglycemia protocol in place INFECTIOUS DISEASE: Trend temperature, WBC and procalcitonin level Follow cultures, deescalate antibiotics as soon as possible. Panculture if new onset fever HEMATOLOGY & COAGULATION: Monitor H&H. Keep Hgb > 7 Transfuse 1 unit of PRBC for Hgb < 7 Transfuse 1 pack of platelets of platelets < 20, 000 Watch for any signs and symptoms of bleeding SKIN: Pressure ulcer prevention per facility protocol Specialty mattress as needed ORTHO/REHAB Continue PT/OT PRN: MEDICATIONS Tylenol 650 mg po every 4 hrs for fever zofran 4 mg IV every 6 hrs for n/v Hydralazine 5 mg IV every 4 hrs systolic pressure > 160 bowel regiment: lactulose 20 gm PO BID PRN constipation Supportive measures: Continue GI and DVT prophylaxis Disposition: Pending improvement in clinical condition All questions answered time spent: > 35 min TITA PETERSON MD Apr 28, 2025 11:36
--- NOTE | 2025-04-28 13:23 | PN ---
35 year old morbidly obese male with a past medical history of Colon mass s/p resection with colostomy placement diagnosed with small bowel obstruction ,severe sepsis and multisystem dysfunction .CT chest/Abdomen/Pelvis revealed Left iliac fossa Spigelian hernia containing small and large bowel with mechanical small bowel obstruction.New right upper lobe spiculated infiltrative mass measuring 5.4 x 4.6 cm infiltrating mediastinal pleura and albumin in the right main pulmonary artery , Bulky mediastinal lymphadenopathy with the largest node measuring 4 cm involving the right paratracheal, prevascular, and subcarinal stations and Multiple bilateral spiculated pulmonary nodules consistent with metastatic disease progression was also seen. Patient with significant failure to thrive. It seems the patient also have infection. White blood count continue to be high at 21.5 K. PHYSICAL EXAM EYES: Anicteric. Pupils equal and reactive. HENT: No oral thrush seen, moist Oral mucosa NECK: Supple, no JVD or thyromegaly. LUNGS: Good air entry. No rales, no rhonchi. CARDIOVASCULAR: S1, S2 regular. No murmur heard. ABDOMEN: Soft, non tender, bowel sounds present, no organomegaly CENTRAL NERVOUS SYSTEM: Awake, alert, oriented x 3. No focal deficits. SKIN: No rashes, no swelling. LYMPHATICS: No peripheral lymphadenopathy MUSCULOSKELETAL: No joint swelling, erythema or tenderness. EXTREMITIES: No cyanosis or clubbing BACK: No deformity, no pressure ulcer. 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 Failure to thrive 6. Leukocytosis with white blood count 21.5 K 7. Anemia with hemoglobin level 9.9 g/deciliter PLAN 1.Pathology report from rectal mass biopsy - moderately differentiated adenocarcinoma . The new pulmonary nodules and mediastinal lymphadenopathy as per CT scan indicate the possibility of metastatic disease. CEA is [id number]. We will request pulmonary nodule biopsy by IR . 2.Peripheral bloood smear shows microcytic hypochromic anemia consistent with iron deficiency anemia . There is teardrop cell, pelger huet cell and rouleaux formation .Increased number of WBCs observed with neutrophilia and hypersegmented neutrophils suggestive of underlying infection . Band cells observed. Platelet morphology and count within normal limits . 3. There is hypersegmented neutrophil. This patient will benefit from IV Iron, Folic acid 1 mg daily and Vitamin B12 1000 mcg daily. 4. Pending Lung nodule biopsy by IR .Plan for genetic phenotyping for targeted therapy if feasible . 5. This patient will need Port-A-Cath insertion before discharge home. This patient need to be clear for Port-A-Cath insertion by infectious disease. But if this patient could not have Port-A-Cath before discharge then we could do it as outpatient. 6. Patient with severe failure to thrive. This patient will need significant physical therapy treatment Vitals/Labs Vital Signs Date Time Temp Pulse Resp B/P (MAP) Pulse Ox O2 Delivery O2 Flow Rate FiO2 04/28/25 11:43 106 20 N/Cannula Low lpm 3.0 32 04/28/25 11:00 98.2 115/76 95 Laboratory Tests 04/28/25 04:15 Medications Current Medications Ketorolac Tromethamine 30 mg ONCE ONCE IM Last administered on 04/19/25at 20:26; Start 04/19/25 at 20:00; Stop 04/19/25 at 20:01; Status DC Acetaminophen 1,000 mg ONCE ONCE PO Last administered on 04/19/25at 20:53; Start 04/19/25 at 20:30; Stop 04/19/25 at 20:34; Status DC Lidocaine 1 each ONCE ONCE TP Last administered on 04/19/25at 20:52; Start 04/19/25 at 20:30; Stop 04/19/25 at 20:34; Status DC Acetaminophen 650 mg Q6H PRN PO Last administered on 04/21/25at 02:20; Start 04/19/25 at 22:00; Stop 05/19/25 at 21:59 Enoxaparin Sodium 40 mg DAILY SQ Last administered on 04/22/25at 08:14; Start 04/20/25 at 09:00; Stop 04/22/25 at 20:00; Status DC Famotidine 20 mg DAILY PO Last administered on 04/28/25at 09:22; Start 04/20/25 at 09:00; Stop 05/20/25 at 08:59 Hydralazine HCl 10 mg Q6H PRN IV; Start 04/19/25 at 22:00; Stop 04/20/25 at 10:52; Status DC Lactated Ringer's 1,000 ml @ 100 mls/hr Q10H IV Last administered on 04/21/25at 12:40; Start 04/19/25 at 22:00; Stop 04/20/25 at 10:52; Status DC Lactulose 20 gm BID PRN PO; Start 04/19/25 at 22:00; Stop 05/19/25 at 21:59 Morphine Sulfate 4 mg Q4H PRN IVP; Start 04/19/25 at 22:00; Stop 04/20/25 at 10:52; Status DC Ondansetron HCl 4 mg Q6H PRN IV Last administered on 04/24/25at 22:19; Start 04/19/25 at 22:00; Stop 05/19/25 at 21:59 Ceftriaxone Sodium 1 gm Q24H IVPB Last administered on 04/22/25at 10:53; Start 04/20/25 at 10:00; Stop 04/22/25 at 12:41; Status DC Hydralazine HCl 5 mg Q6H PRN IV; Start 04/20/25 at 16:00; Stop 05/20/25 at 15:59 Ketorolac Tromethamine 15 mg Q6H PRN IV Last administered on 04/20/25at 22:08; Start 04/20/25 at 11:00; Stop 04/22/25 at 19:58; Status DC Lidocaine 1 each DAILY TP Last administered on 04/28/25at 09:22; Start 04/21/25 at 09:00; Stop 05/21/25 at 08:59 Magnesium Sulfate 50 ml @ 0 mls/hr PROTOCOL IV Last administered on 04/24/25at 06:11; Start 04/21/25 at 08:30; Stop 05/21/25 at 08:29 Potassium Chloride 40 meq ONCE ONCE PO Last administered on 04/21/25at 12:06; Start 04/21/25 at 08:30; Stop 04/21/25 at 08:31; Status DC Doxycycline Hyclate 250 ml @ 125 mls/hr Q12H IV Last administered on 04/22/25at 08:14; Start 04/21/25 at 08:30; Stop 04/22/25 at 12:41; Status DC Lactated Ringer's 1,000 ml @ 50 mls/hr Q20H IV Last administered on 04/24/25at 02:58; Start 04/21/25 at 12:30; Stop 04/25/25 at 07:47; Status DC Gadoterate Meglumine 10 mmol STK-MED ONCE IV; Start 04/21/25 at 13:44; Stop 04/21/25 at 13:44; Status DC Promethazine HCl 12.5 mg Q8H5 PRN IM Last administered on 04/22/25at 12:25; Start 04/22/25 at 12:30; Stop 05/22/25 at 12:29 Cefepime HCl 2 gm Q8H IVPB Last administered on 04/28/25at 09:22; Start 04/22/25 at 13:00; Stop 05/02/25 at 12:59 Metronidazole/ Sodium Chloride 100 ml @ 100 mls/hr Q8H6 IVPB Last administered on 04/28/25at 06:51; Start 04/22/25 at 14:00; Stop 05/02/25 at 13:59 Sodium Chloride 500 ml @ 0 mls/hr Q0M STAT IV Last administered on 04/22/25at 14:39; Start 04/22/25 at 13:17; Stop 04/22/25 at 13:22; Status DC Diatrizoate Meglum/ Diatrizoate Sod 30 ml STK-MED ONCE .ROUTE; Start 04/22/25 at 13:38; Stop 04/22/25 at 13:38; Status DC Vancomycin HCl 1 each AD IV; Start 04/22/25 at 15:00; Stop 04/23/25 at 22:23; Status DC Vancomycin HCl 500 ml @ 166.667 mls/hr ONCE ONCE IV Last administered on 04/22/25at 15:10; Start 04/22/25 at 15:00; Stop 04/22/25 at 17:59; Status DC Iohexol 75 ml STK-MED ONCE IV; Start 04/22/25 at 15:29; Stop 04/22/25 at 15:29; Status DC Hydromorphone HCl 0.5 mg Q4H PRN IVP; Start 04/22/25 at 20:00; Stop 04/27/25 at 19:59; Status DC Enoxaparin Sodium 40 mg Q12H SQ Last administered on 04/27/25at 08:10; Start 04/22/25 at 21:00; Stop 04/27/25 at 13:24; Status DC Labetalol HCl 10 mg ONCE ONCE IV Last administered on 04/23/25at 00:10; Start 04/23/25 at 00:00; Stop 04/23/25 at 00:02; Status DC Labetalol HCl 10 mg Q6H PRN IV; Start 04/23/25 at 00:00; Stop 05/23/25 at 00:00 Vancomycin HCl 250 ml @ 125 mls/hr ONCE ONCE IV Last administered on 04/23/25at 17:55; Start 04/23/25 at 18:00; Stop 04/23/25 at 22:23; Status DC Promethazine HCl 25 mg ONCE ONCE IM Last administered on 04/24/25at 00:59; Start 04/24/25 at 01:00; Stop 04/24/25 at 01:01; Status DC Furosemide 20 mg Q8H IV Last administered on 04/25/25at 03:06; Start 04/24/25 at 19:00; Stop 04/25/25 at 03:01; Status DC Dextrose 1,000 ml @ 50 mls/hr Q20H IV Last administered on 04/25/25at 10:38; Start 04/25/25 at 08:00; Stop 04/25/25 at 16:53; Status DC Iron Sucrose 200 mg DAILY IV Last administered on 04/28/25at 09:20; Start 04/26/25 at 09:00; Stop 04/28/25 at 11:00; Status DC Midazolam HCl 2 mg STK-MED ONCE .ROUTE Last administered on 04/26/25at 10:08; Start 04/26/25 at 09:01; Stop 04/26/25 at 09:01; Status DC Fentanyl Citrate 100 mcg STK-MED ONCE .ROUTE Last administered on 04/26/25at 10:06; Start 04/26/25 at 09:01; Stop 04/26/25 at 09:01; Status DC Nystatin 1 APPLICATION BID TP Last administered on 04/28/25at 09:27; Start 04/26/25 at 14:00; Stop 05/26/25 at 13:59 Heparin Sodium (Porcine) *calculation based on ACTUAL B... AD PRN IV; Start 04/27/25 at 14:00; Stop 05/27/25 at 13:59 Heparin Sodium/ Dextrose 250 ml @ 0 mls/hr Q6H IV Last administered on 04/28/25at 06:43; Start 04/27/25 at 14:00; Stop 05/27/25 at 13:59 Heparin Sodium (Porcine) 10,000 unit ONCE ONCE IV Last administered on 04/27/25at 15:53; Start 04/27/25 at 15:30; Stop 04/27/25 at 15:37; Status DC JANETTE GEE MD Apr 28, 2025 13:23
--- NOTE | 2025-04-28 14:34 | HMCIMG ---
EXAM: CR Chest, 1 View. CLINICAL HISTORY: Congestion. COMPARISON: CR ??? Chest 1 View ??? 04/25/2025, 14:34 IST. FINDINGS: LUNGS: Expiratory films. Bilateral basal consolidation with associated mild atelectasis. Mild patchy opacities in both upper lobes with increased right paratracheal suprahilar opacity. No lobar collapse. PLEURAL SPACES: No pleural effusion or pneumothorax. MEDIASTINUM: Cardiomediastinal silhouette within normal limits. BONES: No acute osseous abnormality. IMPRESSION: * Bilateral basal consolidation with mild atelectasis ??? on comparison with prior report dated 04/25/2025, findings remain similar without significant interval change. * Bilateral mild upper-lobe opacities with right paratracheal suprahilar opacity ??? on comparison with prior report dated 04/25/2025, there is slight interval increase in the right upper-lobe opacity, suggesting mild progression of the infective/inflammatory process. * No pleural effusion, pneumothorax, or new focal abnormality detected. /[place]
--- NOTE | 2025-04-28 19:34 | PN ---
[facility] PROGRESS NOTE Date Patient Seen: Apr 28, 2025 Time of Visit: 11:00 Supervising Physician: Terrance Cabrera MD Inpatient Consults: Dr. Nguyen, Dr. Abad, Dr. Henry, Dr. Johnson PROBLEM LIST: Severe sepsis with MODS, resolved Leukocytosis Gram-positive cocci bacteremia Status post left rib biopsy by IR on 04/26/2025 New right upper lobe spiculated infiltrative mass measuring 5.4 x 4.6 cm infiltrating mediastinal pleura and albumin in the right main pulmonary artery Bulky mediastinal lymphadenopathy with the largest node measuring 4 cm involving the right paratracheal, prevascular, and subcarinal stations Multiple bilateral spiculated pulmonary nodules consistent with metastatic disease progression Bilateral marked diffuse adrenal enlargement likely metastatic or hyperplastic Left iliac fossa 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 INTERVAL HISTORY: Patient assessed at bedside. Currently on 02@3LPM via NC. S/P left rib biopsy by IR yesterday. AAOX3 Family at bedside. pt is NAD some wheezing noted to rt side. Communicated with RT atrovent nebs PRN Pt denies chest pain, palpitations or SOB. Tolerating po diet. No overnight issues per nursing. Prognosis is guarded. PLAN Follow oncology recommendations AM CXR Await for biopsy results Maintain O2 sats above 90%, wean off as tolerated CT chest shows bo ball lesions in lungs, likely metastatic disease Continue PUD and DVT PPX Follow general surgery recommendations "6 min walk" before DC / assess for home o2 needs REVIEW OF SYSTEMS: 12 point ROS reviewed with patient. Pertinent positives mentioned above. Otherwise negative. PHYSICAL EXAM: GENERAL: alert, weak, awake oriented x 3 HEENT: EOMI, Sclera non icteric, moist mucosa NC NECK: Supple, no JVD, trachea midline LUNGS: Diminished breath sounds bilaterally. No wheezes HEART: controlled rate and rhythm. Normal S1 and S2, without murmurs ABD: morbidly obese Abdomen soft, nontender. Bowel sounds hypoactive EXT: No clubbing cyanosis or edema NEURO: Alert and oriented to person, follows commands Vital Signs (last 8hr) Date Time Temp Pulse Resp B/P (MAP) Pulse Ox O2 Delivery O2 Flow Rate FiO2 04/28/25 18:38 20 N/Cannula Low lpm 3.0 32 04/28/25 16:00 98.2 100 20 120/65 96 Nasal Cannula 2.0 04/28/25 11:43 106 20 N/Cannula Low lpm 3.0 32 LABS: Hematology Labs: Test 04/28/25 04:15 Range/Units White Blood Count 21.5 H 4.8-10.8 K/uL Red Blood Count 4.31 L 4.50-6.20 MIL/uL Hemoglobin 9.9 L 14.0-18.0 g/dL Hematocrit 33.3 L 42-54 % Mean Corpuscular Volume 77.3 L 79-99 fL Mean Corpuscular Hemoglobin 23.0 L 27.0-33.0 pg Mean Corpuscular Hemoglobin Concent 29.7 L 32.0-36.0 g/dL Red Cell Distribution Width 18.1 H 11.0-15.5 % Platelet Count 230 130-400 K/uL Mean Platelet Volume 10.8 H 7.5-10.5 fL Immature Granulocyte % (Auto) 10.1 H 0-1 % Neutrophils (%) (Auto) 71.5 40.0-77.0 % Lymphocytes (%) (Auto) 9.0 L 21.0-51.0 % Monocytes (%) (Auto) 7.7 3.0-13.0 % Eosinophils (%) (Auto) 1.0 0.0-8.0 % Basophils (%) (Auto) 0.7 0.0-5.0 % Neutrophils # (Auto) 15.4 H 1.8-7.7 K/uL Lymphocytes # (Auto) 1.9 1.0-4.8 K/uL Monocytes # (Auto) 1.7 H 0.1-1.0 K/uL Eosinophils # (Auto) 0.21 0.00-0.70 K/uL Basophils # (Auto) 0.15 0.00-0.20 K/uL Absolute Immature Granulocyte (auto 2.16 H 0-1 K/uL Nucleated Red Blood Cells 0.1 0.0-0.19 % Red Blood Cell Morphology See comments Chemistry Labs: Test 04/28/25 04:15 04/27/25 03:14 Range/Units Sodium Level 136 136-145 mmol/L Potassium Level 3.9 3.5-5.1 mmol/L Chloride Level 101 101-111 mmol/L Carbon Dioxide Level 27 21-32 mmol/L Blood Urea Nitrogen 20 H 7-18 mg/dL Creatinine 0.8 0.5-1.3 mg/dL Glomerular Filtration Rate Calc 118 >90 mL/min Random Glucose 123 H 70-105 mg/dL Total Calcium 8.4 L 8.5-10.1 mg/dL Total Bilirubin 0.9 0.2-1.0 mg/dL Aspartate Amino Transf (AST/SGOT) 28 10-37 U/L Alanine Aminotransferase (ALT/SGPT) 13 12-78 U/L Alkaline Phosphatase 152 H 50-136 U/L Total Protein 6.7 6.0-8.3 g/dL Albumin 1.7 L 3.5-5.0 g/dL Magnesium Level 2.00 1.80-2.40 mg/dL Coagulation Labs: Test 04/28/25 18:34 04/27/25 14:10 Range/Units Activated Partial Thromboplast Time 56.5 #H 26.3-35.5 SEC Prothrombin Time 13.9 H 9.6-11.6 SEC Prothromb Time International Ratio 1.35 H 0.85-1.15 DIAGNOSTICS / RADIOLOGY RESULTS: [ [place] [id number] [id number] IMAGING REPORT Signed PATIENT: MARTY BARRON MR#: [id number] : 1990 SEX: M AGE: 35 LOCATION: 2DH ORDER 2300 STATUS: ADM IN REPORT#: [id number] SERVICE 0600 REASON: congestion ORDERING PHYSICIAN: DORCAS DUBON PROCEDURE: CXR1VW - CHEST 1VW EXAM: CR Chest, 1 View. CLINICAL HISTORY: Congestion. COMPARISON: CR ??? Chest 1 View ??? 04/25/2025, 14:34 IST. FINDINGS: LUNGS: Expiratory films. Bilateral basal consolidation with associated mild atelectasis. Mild patchy opacities in both upper lobes with increased right paratracheal suprahilar opacity. No lobar collapse. PLEURAL SPACES: No pleural effusion or pneumothorax. MEDIASTINUM: Cardiomediastinal silhouette within normal limits. BONES: No acute osseous abnormality. IMPRESSION: * Bilateral basal consolidation with mild atelectasis ??? on comparison with prior report dated 04/25/2025, findings remain similar without significant interval change. * Bilateral mild upper-lobe opacities with right paratracheal suprahilar opacity ??? on comparison with prior report dated 04/25/2025, there is slight interval increase in the right upper-lobe opacity, suggesting mild progression of the infective/inflammatory process. * No pleural effusion, pneumothorax, or new focal abnormality detected. /[place] DICTATED BY: JOSAFAT DALY MD DATE: 04/28/251532 ELECTRONICALLY SIGNED BY: JOSAFAT DALY MD DATE: 04/28/251532 ] PLAN NEURO: Minimize central acting medications as possible. Maintain fall precautions, adequate lighting during the day PULMONARY: Supplemental 02 as needed. Maintain aspiration precautions at all times CARDIOVASCULAR: Follow hemodynamics. Vital signs per facility protocol GI & NUTRITION: Continue with nutritional support. Continue stool softeners and laxatives as needed. KIDNEYS & ELECTROLYTES: Strict monitoring of intake, output and overall fluid balance. Avoid nephrotoxic medications to the extent possible. Medications to be dosed according to renal function. Monitor electrolytes and replace as needed ENDOCRINE: Maintain blood glucose between 100-180 at all times. Hypoglycemia protocol in place INFECTIOUS DISEASE: Trend temperature, WBC and procalcitonin level Follow cultures, deescalate antibiotics as soon as possible. Panculture if new onset fever ONCOLOGY/HEMATOLOGY/COAGULATION: Monitor for s/s of bleeding Monitor hemoglobin, coagulation studies as needed SKIN: Pressure ulcer prevention per facility protocol Specialty mattress ORTHO/REHAB: Continue PT/OT Prophylaxis: Continue GI and DVT prophylaxis Code Status: Full Resuscitation Disposition: Per primary team Total critical care time: 36 minutes ATTESTATION BY PHYSICIAN I reviewed the documentation, medical decision making, and treatment plan as noted by the mid-level provider above. I agree with the findings and plan of care. Terrance Goldsmith MD, [facility] Apr 28, 2025 19:34
--- NOTE | 2025-04-28 19:58 | PN ---
FOLLOWUP PROGRESS NOTE SUBJECTIVE: A 35-year-old male with multiple medical conditions. The patient initially presented to the hospital with sepsis. The patient also with bowel obstruction. The patient has had acute on chronic renal dysfunction in the hospital. Creatinine has been elevated. The patient did undergo a lung biopsy for metastatic disease, results of which are pending. He is being seen by Oncology. The patient is being seen as a followup visit for all of the above. REVIEW OF SYSTEMS: GENERAL: He is feeling weak and tired. HEENT: No change in vision. No change in hearing. CARDIOVASCULAR: There is no current chest pain or palpitations. PULMONARY: Denies any shortness of breath. GASTROINTESTINAL: He is tolerating a diet. MUSCULOSKELETAL: Complaints of weakness. PHYSICAL EXAMINATION: VITAL SIGNS: Blood pressure is 111/72, pulse 100. GENERAL: Chronically ill male, older than appearing, asymptomatic. HEENT: Pupils are equal, round and reactive to light. Oropharynx is without exudate. Nares clear. NECK: There is no JVP. There is no thyromegaly, no mass. CARDIOVASCULAR: Regular. There is no S3 or S4 gallop. LUNGS: Coarse with equal thoracic movement. ABDOMEN: Soft, nontender, nondistended. EXTREMITIES: Reveal no clubbing or cyanosis. NEUROLOGICAL: He is awake, alert. LABORATORY DATA: Hemoglobin 9.9, hematocrit 33. Sodium 136, BUN 20, creatinine 0.8. IMPRESSION: * Acute on chronic renal dysfunction. * Electrolyte abnormalities. * Metastatic disease. * Sepsis. PLAN: The patient's creatinine has remained fairly stable. The patient is status post lung biopsy, results of which are pending. Electrolytes have all been aggressively repleted. He remains on the antibiotics. The patient is being seen by Oncology. Once the patient is discharged, the patient can follow up in the renal clinic. TID: [id number] RECEIPT: [id number]
--- NOTE | 2025-04-28 23:03 | PN ---
INFECTIOUS DISEASE PROGRESS NOTE Date of Service: Apr 28, 2025 SUBJECTIVE: This is a 35-year-old male patient who was seen and examined at bedside in room 223. Patient is awake, alert and oriented x3. Patient is status post CT-guided lung biopsy on 04/26/2025. Continues on cefepime and metronidazole IV. Right arm swollen and positive for DVT. Patient has been started on heparin drip. No fever, temperature is 98.2, the WBC however remains elevated at 21.5. Patient reported having good appetite today but no output in the colostomy bag since he had been NPO for several days. Will continue to monitor. PHYSICAL EXAM EYES: Anicteric. Pupils equal and reactive. HENT: No oral thrush seen, moist Oral mucosa. NECK: Supple, no JVD or thyromegaly. LUNGS: Good air entry. No rales, no rhonchi. CARDIOVASCULAR: S1, S2 regular. No murmur heard. ABDOMEN: Abdomen is large but Soft, bowel sounds present. Abdominal surgical scar and Left colostomy. CENTRAL NERVOUS SYSTEM: Awake, alert, oriented x 3. SKIN: No rashes, no swelling. LYMPHATICS: No peripheral lymphadenopathy. MUSCULOSKELETAL: Right knee pain. EXTREMITIES: No cyanosis or clubbing. BACK: No deformity, no pressure ulcer. GENITOURINARY: No dysuria or hematuria. Vital Sign (Last 12 Hours) 04/28/25 04/28/25 04/28/25 04/28/25 11:00 11:43 16:00 18:38 Temp 98.2 98.2 Pulse 104 106 100 Resp 20 20 20 20 B/P (MAP) 115/76 120/65 Pulse Ox 95 96 O2 Delivery Nasal Cannula N/Cannula Low lpm Nasal Cannula N/Cannula Low lpm O2 Flow Rate 2.0 3.0 2.0 3.0 FiO2 32 32 04/28/25 20:07 Temp 97.5 Pulse 110 Resp 18 B/P (MAP) 120/75 Pulse Ox 96 O2 Delivery Nasal Cannula O2 Flow Rate 2.0 Intake & Output (last 24hrs) 04/27/25 04/27/25 04/28/25 15:00 23:00 07:00 Intake Total 620.0 ml 297.4 ml Output Total 600 ml 300 ml Balance 620.0 ml -302.6 ml -300 ml LABS: Laboratory: Test 04/28/25 18:34 04/28/25 04:15 04/27/25 14:10 04/27/25 03:14 Range/Units Activated Partial Thromboplast Time 56.5 #H 26.3-35.5 SEC White Blood Count 21.5 H 4.8-10.8 K/uL Red Blood Count 4.31 L 4.50-6.20 MIL/uL Hemoglobin 9.9 L 14.0-18.0 g/dL Hematocrit 33.3 L 42-54 % Mean Corpuscular Volume 77.3 L 79-99 fL Mean Corpuscular Hemoglobin 23.0 L 27.0-33.0 pg Mean Corpuscular Hemoglobin Concent 29.7 L 32.0-36.0 g/dL Red Cell Distribution Width 18.1 H 11.0-15.5 % Platelet Count 230 130-400 K/uL Mean Platelet Volume 10.8 H 7.5-10.5 fL Immature Granulocyte % (Auto) 10.1 H 0-1 % Neutrophils (%) (Auto) 71.5 40.0-77.0 % Lymphocytes (%) (Auto) 9.0 L 21.0-51.0 % Monocytes (%) (Auto) 7.7 3.0-13.0 % Eosinophils (%) (Auto) 1.0 0.0-8.0 % Basophils (%) (Auto) 0.7 0.0-5.0 % Neutrophils # (Auto) 15.4 H 1.8-7.7 K/uL Lymphocytes # (Auto) 1.9 1.0-4.8 K/uL Monocytes # (Auto) 1.7 H 0.1-1.0 K/uL Eosinophils # (Auto) 0.21 0.00-0.70 K/uL Basophils # (Auto) 0.15 0.00-0.20 K/uL Absolute Immature Granulocyte (auto 2.16 H 0-1 K/uL Nucleated Red Blood Cells 0.1 0.0-0.19 % Red Blood Cell Morphology See comments Sodium Level 136 136-145 mmol/L Potassium Level 3.9 3.5-5.1 mmol/L Chloride Level 101 101-111 mmol/L Carbon Dioxide Level 27 21-32 mmol/L Blood Urea Nitrogen 20 H 7-18 mg/dL Creatinine 0.8 0.5-1.3 mg/dL Glomerular Filtration Rate Calc 118 >90 mL/min Random Glucose 123 H 70-105 mg/dL Total Calcium 8.4 L 8.5-10.1 mg/dL Total Bilirubin 0.9 0.2-1.0 mg/dL Aspartate Amino Transf (AST/SGOT) 28 10-37 U/L Alanine Aminotransferase (ALT/SGPT) 13 12-78 U/L Alkaline Phosphatase 152 H 50-136 U/L Total Protein 6.7 6.0-8.3 g/dL Albumin 1.7 L 3.5-5.0 g/dL Prothrombin Time 13.9 H 9.6-11.6 SEC Prothromb Time International Ratio 1.35 H 0.85-1.15 Magnesium Level 2.00 1.80-2.40 mg/dL ASSESSMENT: Hypoxic respiratory failure, requiring oxygen support. Staphylococcus epidermidis bacteremia, which is a contaminant. Leukocytosis. Right knee osteoarthritis. Bilateral pulmonary nodules consistent with metastatic disease, s/p lung biopsy. Small-bowel obstruction. Acute renal failure, improving. Morbid obesity. Recent Colorectal mass with resection and colostomy creation. Right upper extremity DVT. PLAN: Continue cefepime. Continue metronidazole. Currently on heparin drip. Continue oxygen support. Continue GI prophylaxis. Diet being advanced as tolerated. Continue pain management. Avoid nephrotoxic medications. This case was reviewed and discussed with my supervising physician Dr. Richards and the above assessment and plan was formulated and agreed upon. ATTESTATION BY PHYSICIAN I have seen and examined the patient. I reviewed the documentation, medical decision making, and treatment plan as noted by the mid-level provider above. I agree with the findings and plan of care. JULIANNA RICHARDS MD, [facility] Apr 28, 2025 23:03
[2025-04-29] VITALS (14 sets, daily range): BP systolic 111–124; BP diastolic 65–78; PULSE 76–110; RESP 18–28; TEMP 98–98.9; O2SAT 94–97
[2025-04-29 05:02] LABS: NUCLEATED RED BLOOD CELLS 0.2 % (0.0-0.19); PLATELET COUNT (AUTO) 275.0 K/uL (130-400); RED BLOOD CELL COUNT(AUTO) 4.3 MIL/uL (4.50-6.20); RED CELL DISTRIBUTION WIDTH 18.8 % (11.0-15.5); WHITE BLOOD COUNT (AUTO) 22.2 K/uL (4.8-10.8)
[2025-04-29 05:26] LABS: ASPARTATE AMINOTRANSFERASE 29.0 U/L (10-37); CREATININE 0.8 mg/dL (0.5-1.3); GLOMERULAR FILTR. RATE CALC 118.0 mL/min (>90); GLUCOSE,RANDOM 122.0 mg/dL (70-105); SODIUM SERUM 136.0 mmol/L (136-145); TOTAL PROTEIN, SERUM 6.9 g/dL (6.0-8.3); UREA NITROGEN, BLOOD 18.0 mg/dL (7-18)
--- NOTE | 2025-04-29 08:05 | PN ---
[facility] PROGRESS NOTE Date of Service: Apr 29, 2025 Time of Service: 08:02 SUBJECTIVE: 04/20 the patient has been seen and examined at bedside, case discussed with the RN, no acute events overnight, the time of my visit, the patient is awake, following commands, blood pressure 140/90, afebrile, saturating normal on room air. The patient is morbidly obese, he uses a CPAP at home, currently CPAP at bedside during my visit. WBC 14.0, hemoglobin 10.4, hematocrit 34.8, platelet count of 305. CMP shows sodium 141, potassium 3.5, BUN 70, creatinine 0.9, iron level of 25. X-ray of the knee showing moderate to severe three, power mental right knee osteoarthritis, predominantly in the lateral compartment, with small joint effusion. No acute fracture. Orthopedic physician consultation requested, we will follow input and recommendation. MRI of the right knee requested, however due to morbid obesity, might not be able to do it. Discussed with the mother is at the bedside, all questions answered, in agreement. 04/21 patient has been seen and examined at bedside, case discussed with the RN, no acute events overnight, the time my visit he is awake, following commands, admits mild dry nonproductive cough, spiked fever 102.6. Denied chest pain, shortness shortness for breath, no nausea, no vomiting, no abdominal discomfort. The patient has a colostomy bag, on examination, liquid stool noted. WBC slowly trending down at 12.7, hemoglobin stable 11.6. Magnesium 1.7. Added doxycycline 100 mg IV q.12 hours. Follow serology to include SARS antigen, influenza and rapid strep. We will give magnesium sulfate 2 g IV x1. We will order GI stool panel. Patient is scheduled for MRI to the right knee today, continue lidocaine patch, discussed with the orthopedic physician today, we will follow input and recommendation. 04/22 patient is seen and examined at bedside, discussed with the RN. Patient currently feels nauseated. He admits mild discomfort to the right lower quadrant. BP 135/77, mildly tachycardic at 108, saturating normal on room air. Maximum temperature last 24 hours 102.7. CBC shows a hemoglobin of 11.6, hematocrit 35.7, platelet count of 276, with a platelet count of 23.8. Creatinine 2.1. MRI of the right knee shows tricompartmental osteoarthritis with osteophytosis and diffuse cartilage loss, medial and lateral meniscal with complex degenerative tear involving posterior horns and bodies, meniscal tear severity grade 3, full-thickness chondral defect of the lateral femoral condyle, with a underlying subchondral edema, small reactive joint effusion with mild synovitis. We will upgraded the patient to the PCU, LR at 50 mL/hours, follow repeat CBC, CMP and magnesium level. Continue Rocephin and doxycycline IV. We will order a CT of the abdomen and pelvis without contrast to rule out intra- abdominal acute pathology. Orthopedic input noted and appreciated, patient with bad arthritis, we will finally benefit from knee replacement, however considering his morbid obesity, it is not indicated right now. Recommended con servative approach. Mother at bedside, all questions answered, updated, in agreement with plan of care. 04/23 patient is seen and examined at bedside, discussed with the RN, no acute events overnight, patient upgraded to the ICU yesterday due to sepsis and developing small bowel obstruction. Today the patient is awake, following commands, he is NPO, NG tube to intermittent suction, BP 120/76, heart rate of 111, saturating 96% 3 L nasal cannula, temperature 98.4. WBC of 27.6, hemoglobin 10.6, hematocrit 35.5, platelet count 240, creatinine improved to 1.2. Septic workup with blood culture positive for Staphylococcus epidermidis. Echocardiogram and chest x-ray pending. Patient will remain admitted to the ICU, continue broad-spectrum IV antibiotics, we will follow surgical input recommendation. Continue to follow critical Care and ID input and recommendation. And we will update the mother regarding results of CT of the abdomen pelvis and further plan of care when she is present in the room. CT abdomen and pelvis reviewed, as follows: * Patient is undergoing mass evaluation. * Interval progression since 22 April 2025 with a new right upper lobe spiculated infiltrative mass measuring 5.4 ??? 4.6 cm infiltrating mediastinal pleura and abutting the right main pulmonary artery. * Bulky mediastinal lymphadenopathy with largest node measuring 4 cm, involving right paratracheal, prevascular, precarinal, and subcarinal stations, increased since prior study. * Multiple bilateral spiculated pulmonary nodules (1???2.5 cm), consistent with metastatic disease progression. * Bilateral marked diffuse adrenal enlargement (Right 5.9 ??? 3.6 cm, Left 7.6 ??? 5.4 cm), likely metastatic or hyperplastic. 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 * Degenerative thoracolumbar spondylosis with L4 vertebral body wedging (30???40% height loss), unchanged. * Comparison is made with the exam dated 22 April 2025. Overall findings indicate worsening metastatic disease with new primary and gloria lesions and mechanical bowel obstruction requiring clinical and surgical correlation. Recommendations include oncologic evaluation and PET-CT staging, alongside urgent surgical consultation for bowel obstruction. 04/24 patient is seen and examined at bedside, discussed with the RN, no acute events overnight, patient downgraded from the ICU to the PCU, he remains NPO, NG tube connected to intermittent suction, output in the last 12 hours 200 mL. BP 146/150, heart rate of 101, afebrile, saturating 96-97% on nasal cannula. CBC shows a hemoglobin of 9.9, hematocrit 33.5, platelet count of 235, with WBC of 21.3. CMP with sodium 146, potassium 3.8, BUN of 18, creatinine 0.9, magnesium 1.8. Blood culture 04/21/2025 positive for Staphylococcus epidermidis. Repeat blood cultures 04/23/2025 no growth after 24 hours echocardiogram 04/23/2025 LVEF 50-55%, no left ventricle thrombus, no intracardiac masses, no valvular vegetations. Today chest x-ray pending. Patient will remain admitted to the PCU, NPO, intermittent suction, continue to follow surgical input recommendation, continue broad-spectrum IV antibiotics, follow WBC in a.m.. Follow KUB. I HAVE CONTACTED THE DEPARTMENT OF MEDICAL RECORDS ART[facility], SPOKE WITH ZENA AT PHONE NUMBER [phone], I HAVE REQUESTED MEDICAL RECORDS. WE WILL FOLLOW UP. 04/25 patient is seen and examined at bedside, case discussed with the RN, no acute events overnight, he remains comfortably in bed, NPO, NG tube to intermittent suction, he is awake, following commands, BP 128/90, area of 101, afebrile. Still feels distended. On examination colostomy bag, enema output noted. KUB pending. KUB from 04/24/2025 showing markedly dilated small bowel loops up to 5.6 cm, consistent with distal small-bowel obstruction, no pneumoperitoneum, pneumatosis intestinalis or portal venous gas. I received medical records from [facility], patient was admitted on 11/19/2024 and discharged 12/08/2024. Areolar in the hospital patient underwent exploratory laparoscopy, laparotomy and creation of transverse loop colostomy 11/28/2024. Patient was evaluated by oncologist Braulio Bell. 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 Per my discussion with the mother, from [facility] the patient was discharged to [facility] to recover and from there he went home. Patient has not had a follow up appointment with the general surgeon or oncologist after that. We have requested Oncology consultation here during this admission. Pathology report from rectal biopsy shows moderately differentiated adenocarcinoma, then new pulmonary nodules and mediastinal lymphadenopathy as per CT scan indicates the possibility of metastatic disease. CEA is [id number]. Req uested pulmonary nodule biopsy by IR. Patient will remain admitted to the PCU, we will continue NG tube to intermittent suction, NPO, TPN, follow surgical input and recommendation. Follow repeat KUB. Mother at bedside, updated, all questions answered. Plan of care discussed with the patient as well, in agreement. 04/26 patient is seen and examined at bedside, discussed with the RN, no acute events overnight, patient is status post CT-guided biopsy of left anterior rib mass, 04/26/2025, tolerated the procedure well. At the time of my visit, he is awake, following commands, denied chest pain, shortness shortness for breath, no nausea, no vomiting. Colostomy bag full of air. No stool or liquid noted. Plan is for the patient to start clear liquid diet and advanced as tolerated. We will follow results of pathology. Continue to follow a.m. labs. Mother at bedside, updated. 04/27 patient is seen and, discussed with the RN, no acute events overnight, alert oriented x3, tolerating clear liquid diet. Passing gas in the colostomy bag but no bowel movement yet. Patient was swollen to the right upper extremity. Doppler showing deep venous thrombosis involving the right axillary vein and brachial veins, nonocclusive thrombosis of the right cephalic vein (superficial venous thrombosis). Correlate clinically for pulmonary embolism risk. Hemoglobin of 10.4, hematocrit 35.9, platelet count of 18.7. Findings of Doppler discussed with the mother, we will start the patient on heparin drip, risks versus benefits discussed, agreed to proceed with the anticoagulation. We will insert midline in the left upper extremity. We will continue to clinically monitor the patient.status post CT-guided biopsy of left anterior rib mass, 04/26/2025, follow up pathology. Continue to follow oncology input and recommendation. 04/28 patient is seen and, discussed with the RN, no acute events overnight, alert oriented x3, remains admitted to the PCU, alert oriented x3 at the time of my visit, tolerating soft diet, passing gas but no BM yet. Doppler showing deep venous thrombosis involving the right axillary vein and brachial veins, nonocclusive thrombosis of the right cephalic vein (superficial venous thr ombosis). Continue heparin drip. Oncology input noted and appreciated. Patient will need Port-A-Cath insertion before discharge home. status post CT- guided biopsy of left anterior rib mass, 04/26/2025, follow up pathology. Continue broad-spectrum IV antibiotics, trend WBC in a.m. per mother at bedside, updated. 04/29/25 The patient continue with Heparin drip given to DVT right axillary vein and brachial vein: will transition to po close to discharged. This patient will need Port-A-Cath insertion before discharge home. This patient need to be clear for Port-A-Cath insertion by infectious disease REVIEW OF SYSTEMS CONSTITUTIONAL: Denies fevers, chills, or night sweats. No unintentional weight loss reported. NEUROLOGICAL: Denies headache, amaurosis fugax, motor weakness, sensory deficit, vertigo/spinning sensation, gait abnormalities, or tremors. ENT: No hearing loss, otalgia, otorrhea, rhinitis, rhinorrhea, hoarseness, or sore throat. CARDIOVASCULAR: Denies any exertional angina, dyspnea on exertion, orthopnea, paroxysmal nocturnal dyspnea, palpitations, life-threatening arrhythmias, claudication. PULMONARY: Denies any shortness of breath, cough, phlegm/sputum, hemoptysis, pleuritic chest pain. SLEEP: Denies morning headaches, daytime somnolence or napping. Denies difficulty falling asleep, staying asleep, waking from sleep. Denies knowledge of snoring. GASTROINTESTINAL: Denies any type of dysphagia to either liquids or solids. Denies nausea, vomiting, pyrosis, early satiety, abdominal pain, diarrhea, constipation, or changes in stool consistency or caliber. Denies coffee-ground emesis, hematemesis, hematochezia, or melanotic stools. GENITOURINARY: Denies frequency, urgency, nocturia, hematuria or incontinence (Storage/Irritative symptoms.) Low urinary stream, straining to void, urinary intermittency or hesitancy, splitting of the voiding stream, terminal dribbling. ENDOCRINOLOGIC: Denies polyuria, polydipsia, polyphagia or heat/cold intolerances. HEMATOLOGIC: Denies thrombophilia/previous clots, or coagulopathy/bleeding disorders. ONCOLOGIC: Denies personal history of malignancy. DERMATOLOGIC: Denies rashes or pruritus. PSYCHIATRIC: Denies any suicidal or homicidal ideation. Denies hallucinations. PHYSICAL EXAM GENERAL APPEARANCE: Patient awake, following commands, NG tube to intermittent suction. NEUROLOGICAL: Cranial nerves II-XII grossly intact. Motor is 5/5 in bilateral upper and lower extremities proximal to distal. No sensory deficits. HEENT: Face is symmetric. Pupils are equal and reactive. Extraocular movements are intact. NECK: Supple. No JVD. No thyromegaly. No submental, submandibular, pre- /postauricular, occipital or supraclavicular lymphadenopathy. CHEST: Normal chest expansion. No Telemetry. LUNGS: Absence of any rales, rhonchi or any wheezing. CARDIOVASCULAR: Regular. S1 and S2 normal. No appreciable rubs, murmurs or gallops. ABDOMEN: Liquid output colostomy bag noted. : Deferred. No Doe. EXTREMITIES: Mild swelling to the right knee area, lidocaine patch in place. SKIN: No skin breakdown. Vital Signs (last 8hr) Date Time Temp Pulse Resp B/P (MAP) Pulse Ox O2 Delivery O2 Flow Rate FiO2 04/29/25 06:53 76 28 04/29/25 06:49 96 20 N/Cannula Low lpm 3.0 32 04/29/25 04:58 99.0 105 20 123/65 98 BIPAP 04/29/25 04:00 24 40 04/29/25 00:56 98.8 110 24 124/76 100 BIPAP LABS: Laboratory: Test 04/29/25 04:29 04/29/25 00:48 04/28/25 04:15 04/27/25 14:10 Range/Units White Blood Count 22.2 H 4.8-10.8 K/uL Red Blood Count 4.30 L 4.50-6.20 MIL/uL Hemoglobin 9.8 L 14.0-18.0 g/dL Hematocrit 33.1 L 42-54 % Mean Corpuscular Volume 77.0 L 79-99 fL Mean Corpuscular Hemoglobin 22.8 L 27.0-33.0 pg Mean Corpuscular Hemoglobin Concent 29.6 L 32.0-36.0 g/dL Red Cell Distribution Width 18.8 H 11.0-15.5 % Platelet Count 275 130-400 K/uL Mean Platelet Volume 10.7 H 7.5-10.5 fL Nucleated Red Blood Cells 0.2 H 0.0-0.19 % Sodium Level 136 136-145 mmol/L Potassium Level 3.9 3.5-5.1 mmol/L Chloride Level 102 101-111 mmol/L Carbon Dioxide Level 26 21-32 mmol/L Blood Urea Nitrogen 18 7-18 mg/dL Creatinine 0.8 0.5-1.3 mg/dL Glomerular Filtration Rate Calc 118 >90 mL/min Random Glucose 122 H 70-105 mg/dL Total Calcium 8.6 8.5-10.1 mg/dL Magnesium Level 2.00 1.80-2.40 mg/dL Total Bilirubin 0.9 0.2-1.0 mg/dL Aspartate Amino Transf (AST/SGOT) 29 10-37 U/L Alanine Aminotransferase (ALT/SGPT) 12 12-78 U/L Alkaline Phosphatase 147 H 50-136 U/L Total Protein 6.9 6.0-8.3 g/dL Albumin 1.8 L 3.5-5.0 g/dL Activated Partial Thromboplast Time 63.8 H 26.3-35.5 SEC Immature Granulocyte % (Auto) 10.1 H 0-1 % Neutrophils (%) (Auto) 71.5 40.0-77.0 % Lymphocytes (%) (Auto) 9.0 L 21.0-51.0 % Monocytes (%) (Auto) 7.7 3.0-13.0 % Eosinophils (%) (Auto) 1.0 0.0-8.0 % Basophils (%) (Auto) 0.7 0.0-5.0 % Neutrophils # (Auto) 15.4 H 1.8-7.7 K/uL Lymphocytes # (Auto) 1.9 1.0-4.8 K/uL Monocytes # (Auto) 1.7 H 0.1-1.0 K/uL Eosinophils # (Auto) 0.21 0.00-0.70 K/uL Basophils # (Auto) 0.15 0.00-0.20 K/uL Absolute Immature Granulocyte (auto 2.16 H 0-1 K/uL Red Blood Cell Morphology See comments Prothrombin Time 13.9 H 9.6-11.6 SEC Prothromb Time International Ratio 1.35 H 0.85-1.15 Current Medications Medications (Trade) Dose Ordered Sig/Checo Route PRN Reason Start Time Stop Time Status Last Admin Dose Admin Acetaminophen (TYLenol 325MG TAB) 650 mg Q6H PRN PO FEVER/pain 1-3 04/19/25 22:00 05/19/25 21:59 04/21/25 02:20 650 MG Cefepime HCl (MAXipime 2 gm vial) 2 gm Q8H IVPB 04/22/25 13:00 05/02/25 12:59 04/29/25 05:07 2 GM Ceftriaxone Sodium (ROCEphine 1G INJ) 1 gm Q24H IVPB 04/20/25 10:00 04/22/25 12:41 DC 04/22/25 10:53 1 GM Dextrose 1,000 ml @ 50 mls/hr Q20H IV 04/25/25 08:00 04/25/25 16:53 DC 04/25/25 10:38 100 MLS/HR Doxycycline Hyclate 250 ml @ 125 mls/hr Q12H IV 04/21/25 08:30 04/22/25 12:41 DC 04/22/25 08:14 125 MLS/HR Enoxaparin Sodium (Lovenox) 40 mg DAILY SQ 04/20/25 09:00 04/22/25 20:00 DC 04/22/25 08:14 40 MG Enoxaparin Sodium (Lovenox) 40 mg Q12H SQ 04/22/25 21:00 04/27/25 13:24 DC 04/27/25 08:10 40 MG Famotidine (Pepcid 20mg Tab) 20 mg DAILY PO 04/20/25 09:00 05/20/25 08:59 04/28/25 09:22 20 MG Furosemide (LASix 20MG VIAL) 20 mg Q8H IV 04/24/25 19:00 04/25/25 03:01 DC 04/25/25 03:06 20 MG Heparin Sodium (Porcine) (HEParin 5,000 UNIT VIAL) *calculation based on ACTUAL B... AD PRN IV HEPARIN PROTOCOL 04/27/25 14:00 05/27/25 13:59 Heparin Sodium/ Dextrose 250 ml @ 0 mls/hr Q6H IV 04/27/25 14:00 05/27/25 13:59 04/29/25 07:09 18.59 MLS/HR Hydralazine HCl (APRESOLine 20MG INJ) 5 mg Q6H PRN IV For:SBP above 160;DBP above 90 04/20/25 16:00 05/20/25 15:59 Hydralazine HCl (APRESOLine 20MG INJ) 10 mg Q6H PRN IV For:SBP above 160;DBP above 90 04/19/25 22:00 04/20/25 10:52 DC Hydromorphone HCl (DiLAUDid 0.5MG INJ) 0.5 mg Q4H PRN IVP SEVERE PAIN (7-10) 04/22/25 20:00 04/27/25 19:59 DC Ipratropium [place] (AtrovENT UD) 0.5 MG Q6H PRN IH SHORTNESS OF BREATH 04/28/25 19:30 05/28/25 19:29 04/29/25 06:51 0.5 MG Iron Sucrose (VenoFER) 200 mg DAILY IV 04/26/25 09:00 04/28/25 11:00 DC 04/28/25 09:20 200 MG Ketorolac Tromethamine (toRADol) 15 mg Q6H PRN IV MODERATE PAIN (4-6) 04/20/25 11:00 04/22/25 19:58 DC 04/20/25 22:08 15 MG Labetalol HCl (TRANdate 20MG SYG) 10 mg Q6H PRN IV SUSTAINED HR >120 04/23/25 00:00 05/23/25 00:00 Lactated Ringer's 1,000 ml @ 50 mls/hr Q20H IV 04/21/25 12:30 04/25/25 07:47 DC 04/24/25 02:58 75 MLS/HR Lactated Ringer's 1,000 ml @ 100 mls/hr Q10H IV 04/19/25 22:00 04/20/25 10:52 DC 04/21/25 12:40 100 MLS/HR Lactulose (Constulose 20gm/ 30ml Udcup) 20 gm BID PRN PO CONSTIPATION 04/19/25 22:00 05/19/25 21:59 Lidocaine (Lidocaine Patch 4%) 1 each DAILY TP 04/21/25 09:00 05/21/25 08:59 04/28/25 09:22 1 EACH Magnesium Sulfate 50 ml @ 0 mls/hr PROTOCOL IV 04/21/25 08:30 05/21/25 08:29 04/24/25 06:11 25 MLS/HR Metronidazole/ Sodium Chloride 100 ml @ 100 mls/hr Q8H6 IVPB 04/22/25 14:00 05/02/25 13:59 04/29/25 06:32 100 MLS/HR Morphine Sulfate (morPHINE 4MG SYG) 4 mg Q4H PRN IVP SEVERE PAIN (7-10) 04/19/25 22:00 04/20/25 10:52 DC Nystatin (NystOP 15 GM POWDER) 1 APPLICATION BID TP 04/26/25 14:00 05/26/25 13:59 04/28/25 21:49 1 APPL Ondansetron HCl (zoFRAN 4MG INJ) 4 mg Q6H PRN IV NAUSEA/VOMITING 04/19/25 22:00 05/19/25 21:59 04/24/25 22:19 4 MG Promethazine HCl (Phenergan) 12.5 mg Q8H5 PRN IM NAUSEA/VOMITING 04/22/25 12:30 05/22/25 12:29 04/22/25 12:25 12.5 MG Sodium Chloride 500 ml @ 0 mls/hr Q0M STAT IV 04/22/25 13:17 04/22/25 13:22 DC 04/22/25 14:39 600 MLS/HR Vancomycin HCl (Vancomycin Protocol) 1 each AD IV 04/22/25 15:00 04/23/25 22:23 DC DIAGNOSTICS / RADIOLOGY: [ ] ASSESSMENT: Severe sepsis with MODS, resolved Leukocytosis Gram-positive cocci bacteremia Status post left rib biopsy by IR on 04/26/2025 New right upper lobe spiculated infiltrative mass measuring 5.4 x 4.6 cm infiltrating mediastinal pleura and albumin in the right main pulmonary artery Bulky mediastinal lymphadenopathy with the largest node measuring 4 cm involving the right paratracheal, prevascular, and subcarinal stations Multiple bilateral spiculated pulmonary nodules consistent with metastatic disease progression Bilateral marked diffuse adrenal enlargement likely metastatic or hyperplastic Left iliac fossa 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 Right upper extremity DVT involving the axillary and brachial veins PLAN: patient is seen and, discussed with the RN, no acute events overnight, alert oriented x3, remains admitted to the PCU, alert oriented x3 at the time of my visit, tolerating soft diet, passing gas but no BM yet. Doppler showing deep venous thrombosis involving the right axillary vein and brachial veins, nonocclusive thrombosis of the right cephalic vein (superficial venous thrombosis). Continue heparin drip. Oncology input noted and appreciated. Patient will need Port-A-Cath insertion before discharge home. Discussed plan of care with patient mother at bedside. NEURO: Minimize central acting medications as possible. Fall Precautions. Well lighted room through the day and minimize interruptions through the night to prevent acute delirium. PULMONARY: Supplemental 02 as needed BiPAP as necessary, for respiratory distress Titrate Fio2 to keep Spo2 > or = 90% DuoNebs and CPT as needed IS hourly while awake for pulmonary hygiene prn Out of bed to chair as tolerated Maintain aspiration precautions at all times CARDIOVASCULAR: Follow hemodynamics. Vital signs per facility protocol GI & NUTRITION: Continue nutritional support Aspirations precautions Prokinetic agents and laxatives as needed KIDNEYS & ELECTROLYTES: Strict monitoring of intake and output Daily weights Avoid nephrotoxic agents Monitor electrolytes and replace as needed Goal urine output of 30mL/hr or 0.5mL/kg/hr Medications to be dosed according to renal function. Avoid contrast if possible ENDOCRINE: Maintain blood glucose between 100-180 at all times. Insulin sliding scale for blood glucose management Hypoglycemia and hyperglycemia protocol in place INFECTIOUS DISEASE: Trend temperature, WBC and procalcitonin level Follow cultures, deescalate antibiotics as soon as possible. Panculture if new onset fever HEMATOLOGY & COAGULATION: Monitor H&H. Keep Hgb > 7 Transfuse 1 unit of PRBC for Hgb < 7 Transfuse 1 pack of platelets of platelets < 20, 000 Watch for any signs and symptoms of bleeding SKIN: Pressure ulcer prevention per facility protocol Specialty mattress as needed ORTHO/REHAB Continue PT/OT PRN: MEDICATIONS Tylenol 650 mg po every 4 hrs for fever zofran 4 mg IV every 6 hrs for n/v Hydralazine 5 mg IV every 4 hrs systolic pressure > 160 bowel regiment: lactulose 20 gm PO BID PRN constipation Supportive measures: Continue GI and DVT prophylaxis Disposition: Pending improvement in clinical condition All questions answered time spent: > 35 min ATTESTATION BY PHYSICIAN I have seen and examined the patient. I reviewed the documentation, medical decision making, and treatment plan as noted by the mid-level provider above. I agree with the findings and plan of care. Justin Arredondo IV, MD, [facility] Apr 29, 2025 08:05
--- NOTE | 2025-04-29 10:40 | PN ---
[facility] PROGRESS NOTE Date Patient Seen: Apr 29, 2025 Time of Visit: 10:40 Supervising Physician: Sonny Jha MD Inpatient Consults: Dr. Nguyen, Dr. Abad, Dr. Henry, Dr. Johnson PROBLEM LIST: Severe sepsis with MODS, resolving Leukocytosis Staphylococcus epidermidis bacteremia, which is a contaminant. 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 INTERVAL HISTORY: Patient assessed at bedside. Currently on 02@3LPM via GA. He is AAOx3, no major overnight events. He is awaiting BX results. Pt with decreased wheezing to rt side. Pt's mother and pt report [id number] stooling from colostomy bag, Primary has ordered lactulose. KUB ordered for am. We continue on IV abx with cefepime and Flagyl will add vancomycin for MRSA coverage, given increasing white count. Follow oncology recs. PLAN Follow oncology recommendations AM CXR am kub monitor colostomy output Await for biopsy results Maintain O2 sats above 90%, wean off as tolerated CT chest shows bo ball lesions in lungs, likely metastatic disease Continue PUD and DVT PPX Follow general surgery recommendations "6 min walk" before DC / assess for home o2 needs continue IV abx vanco cefepim and flagyl REVIEW OF SYSTEMS: 12 point ROS reviewed with patient. Pertinent positives mentioned above. Otherwise negative. PHYSICAL EXAM: GENERAL: alert, weak, awake oriented x 3 HEENT: EOMI, Sclera non icteric, moist mucosa NC NECK: Supple, no JVD, trachea midline LUNGS: Diminished breath sounds bilaterally. No wheezes HEART: controlled rate and rhythm. Normal S1 and S2, without murmurs ABD: morbidly obese Abdomen soft, nontender. Bowel sounds hypoactive EXT: No clubbing cyanosis or edema NEURO: Alert and oriented to person, follows commands Vital Signs (last 8hr) Date Time Temp Pulse Resp B/P (MAP) Pulse Ox O2 Delivery O2 Flow Rate FiO2 04/29/25 07:18 98.2 99 18 111/68 95 Nasal Cannula 2.0 04/29/25 06:53 76 28 04/29/25 06:49 96 20 N/Cannula Low lpm 3.0 32 04/29/25 04:58 99.0 105 20 123/65 98 BIPAP 04/29/25 04:00 24 40 LABS: Hematology Labs: Test 04/29/25 04:29 04/28/25 04:15 Range/Units White Blood Count 22.2 H 4.8-10.8 K/uL Red Blood Count 4.30 L 4.50-6.20 MIL/uL Hemoglobin 9.8 L 14.0-18.0 g/dL Hematocrit 33.1 L 42-54 % Mean Corpuscular Volume 77.0 L 79-99 fL Mean Corpuscular Hemoglobin 22.8 L 27.0-33.0 pg Mean Corpuscular Hemoglobin Concent 29.6 L 32.0-36.0 g/dL Red Cell Distribution Width 18.8 H 11.0-15.5 % Platelet Count 275 130-400 K/uL Mean Platelet Volume 10.7 H 7.5-10.5 fL Nucleated Red Blood Cells 0.2 H 0.0-0.19 % Immature Granulocyte % (Auto) 10.1 H 0-1 % Neutrophils (%) (Auto) 71.5 40.0-77.0 % Lymphocytes (%) (Auto) 9.0 L 21.0-51.0 % Monocytes (%) (Auto) 7.7 3.0-13.0 % Eosinophils (%) (Auto) 1.0 0.0-8.0 % Basophils (%) (Auto) 0.7 0.0-5.0 % Neutrophils # (Auto) 15.4 H 1.8-7.7 K/uL Lymphocytes # (Auto) 1.9 1.0-4.8 K/uL Monocytes # (Auto) 1.7 H 0.1-1.0 K/uL Eosinophils # (Auto) 0.21 0.00-0.70 K/uL Basophils # (Auto) 0.15 0.00-0.20 K/uL Absolute Immature Granulocyte (auto 2.16 H 0-1 K/uL Red Blood Cell Morphology See comments Chemistry Labs: Test 04/29/25 04:29 Range/Units Sodium Level 136 136-145 mmol/L Potassium Level 3.9 3.5-5.1 mmol/L Chloride Level 102 101-111 mmol/L Carbon Dioxide Level 26 21-32 mmol/L Blood Urea Nitrogen 18 7-18 mg/dL Creatinine 0.8 0.5-1.3 mg/dL Glomerular Filtration Rate Calc 118 >90 mL/min Random Glucose 122 H 70-105 mg/dL Total Calcium 8.6 8.5-10.1 mg/dL Magnesium Level 2.00 1.80-2.40 mg/dL Total Bilirubin 0.9 0.2-1.0 mg/dL Aspartate Amino Transf (AST/SGOT) 29 10-37 U/L Alanine Aminotransferase (ALT/SGPT) 12 12-78 U/L Alkaline Phosphatase 147 H 50-136 U/L Total Protein 6.9 6.0-8.3 g/dL Albumin 1.8 L 3.5-5.0 g/dL Coagulation Labs: Test 04/29/25 00:48 04/27/25 14:10 Range/Units Activated Partial Thromboplast Time 63.8 H 26.3-35.5 SEC Prothrombin Time 13.9 H 9.6-11.6 SEC Prothromb Time International Ratio 1.35 H 0.85-1.15 DIAGNOSTICS / RADIOLOGY RESULTS: [ ] PLAN NEURO: Minimize central acting medications as possible. Maintain fall precautions, adequate lighting during the day PULMONARY: Supplemental 02 as needed. Maintain aspiration precautions at all times CARDIOVASCULAR: Follow hemodynamics. Vital signs per facility protocol GI & NUTRITION: Continue with nutritional support. Continue stool softeners and laxatives as needed. KIDNEYS & ELECTROLYTES: Strict monitoring of intake, output and overall fluid balance. Avoid nephrotoxic medications to the extent possible. Medications to be dosed according to renal function. Monitor electrolytes and replace as needed ENDOCRINE: Maintain blood glucose between 100-180 at all times. Hypoglycemia protocol in place INFECTIOUS DISEASE: Trend temperature, WBC and procalcitonin level Follow cultures, deescalate antibiotics as soon as possible. Panculture if new onset fever ONCOLOGY/HEMATOLOGY/COAGULATION: Monitor for s/s of bleeding Monitor hemoglobin, coagulation studies as needed SKIN: Pressure ulcer prevention per facility protocol Specialty mattress ORTHO/REHAB: Continue PT/OT Prophylaxis: Continue GI and DVT prophylaxis Code Status: Full Resuscitation Disposition: Per primary team Total critical care time: 36 minutes ATTESTATION BY PHYSICIAN I have evaluated the patient chart, medical records, and spoke with appropriate staff. I reviewed the documentation, medical decision making, and treatment plan as noted by the mid-level provider above. I agree with the findings and plan of care. Sonny Jha MD, [facility] Apr 29, 2025 10:40
[2025-04-29] MEDS ORDERED: VANCOMYCIN PROTOCOL PER PHARMACY IV SCH (11:00)
[2025-04-29] MEDS: VANCOMYCIN 2GM/500 ML BAG 500 ML IV ONE (11:08)
[2025-04-29] MEDS: SODIUM CHLORIDE 3% FOR INHALATION 4 ML/AMP VIAL.NEB IH ONE ×2 (11:10→19:35)
--- NOTE | 2025-04-29 12:03 | PN ---
FOLLOWUP PROGRESS NOTE SUBJECTIVE: A 35-year-old male with a history of known colon mass. The patient presented and found to have metastatic disease. The patient is status post lung biopsy, results of which are all pending. He has had [id number] renal failure in the hospital. Creatinine had been elevated. The patient is being seen by case management, final disposition, and the patient is being seen for all of the above. REVIEW OF SYSTEMS: GENERAL: He is feeling weak and tired. HEENT: No change in vision. No change in hearing. CARDIOVASCULAR: There is no current chest pain or palpitations. PULMONARY: Denies any shortness of breath. GASTROINTESTINAL: He is tolerating a diet. MUSCULOSKELETAL: Complains of weakness. PHYSICAL EXAMINATION: VITAL SIGNS: Blood pressure is 111/68, pulse in the 90s. GENERAL: Chronically ill male, much older than appearing. HEENT: Head is atraumatic. Pupils are equal, round and reactive to light. Oropharynx is without exudate. Nares clear. NECK: There is no JVP. There is no thyromegaly. No mass. CARDIOVASCULAR: Regular. There is no S3 or S4 or gallop. LUNGS: Coarse, with equal thoracic movement. ABDOMEN: Soft, nondistended, and nontender. EXTREMITIES: No clubbing, no cyanosis. NEUROLOGICAL: He is awake and alert. LABORATORY DATA: Sodium 136, potassium 3.9, BUN 18, creatinine 0.8. Hemoglobin 9.8, hematocrit 33. IMPRESSION: * [id number] renal failure. * Metastatic disease. * Sleep apnea. * Hypertension. PLAN: The patient's creatinine has stabilized while in the hospital. Urine output has been adequate. Serum sodium is much improved. He is encouraged with free water for the hypernatremia. The patient is status post lung biopsy results of which are all pending. We will continue to follow closely. Once the patient is discharged, he can follow up in the Renal clinic. TID: [id number] RECEIPT: [id number]
--- NOTE | 2025-04-29 14:09 | PN ---
35 year old morbidly obese male with a past medical history of Colon mass s/p resection with colostomy placement diagnosed with small bowel obstruction ,severe sepsis and multisystem dysfunction .CT chest/Abdomen/Pelvis revealed Left iliac fossa Spigelian hernia containing small and large bowel with mechanical small bowel obstruction.New right upper lobe spiculated infiltrative mass measuring 5.4 x 4.6 cm infiltrating mediastinal pleura and albumin in the right main pulmonary artery , Bulky mediastinal lymphadenopathy with the largest node measuring 4 cm involving the right paratracheal, prevascular, and subcarinal stations and Multiple bilateral spiculated pulmonary nodules consistent with metastatic disease progression was also seen. Patient with significant failure to thrive. It seems the patient also have infection. White blood count continue to be high at 21.5 K. Patient could not sit on the side of the bed because the patient having pain to the knee. PHYSICAL EXAM EYES: Anicteric. Pupils equal and reactive. HENT: No oral thrush seen, moist Oral mucosa NECK: Supple, no JVD or thyromegaly. LUNGS: Good air entry. No rales, no rhonchi. CARDIOVASCULAR: S1, S2 regular. No murmur heard. ABDOMEN: Soft, non tender, bowel sounds present, no organomegaly CENTRAL NERVOUS SYSTEM: Awake, alert, oriented x 3. No focal deficits. SKIN: No rashes, no swelling. LYMPHATICS: No peripheral lymphadenopathy MUSCULOSKELETAL: No joint swelling, erythema or tenderness. EXTREMITIES: No cyanosis or clubbing BACK: No deformity, no pressure ulcer. 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 Failure to thrive 6. Leukocytosis with white blood count 21.5 K 7. Anemia with hemoglobin level 9.9 g/deciliter PLAN 1.Pathology report from rectal mass biopsy - moderately differentiated adenocarcinoma . The new pulmonary nodules and mediastinal lymphadenopathy as per CT scan indicate the possibility of metastatic disease. CEA is 6714. We will request pulmonary nodule biopsy by IR . 2.Peripheral bloood smear shows microcytic hypochromic anemia consistent with iron deficiency anemia . There is teardrop cell, pelger huet cell and rouleaux formation .Increased number of WBCs observed with neutrophilia and hypersegmented neutrophils suggestive of underlying infection . Band cells observed. Platelet morphology and count within normal limits . 3. This patient with significant failure to thrive. With the patient cannot sit on the side of the bed. I tried to explain to him and to the family that he need to start walking and exercise as a cannot treat him with palliative chemo. 4. Pending Lung nodule biopsy by IR .Plan for genetic phenotyping for targeted therapy if feasible . 5. Physical therapy for evaluation and treatment. 6. Patient with severe failure to thrive. The patient could not do any physical activity he will be candidate only for hospice Vitals/Labs Vital Signs Date Time Temp Pulse Resp B/P (MAP) Pulse Ox O2 Delivery O2 Flow Rate FiO2 04/29/25 12:15 98.1 97 18 122/75 99 Room Air 04/29/25 07:18 2.0 04/29/25 07:00 28 Laboratory Tests 04/29/25 04:29 Medications Current Medications Ketorolac Tromethamine 30 mg ONCE ONCE IM Last administered on 04/19/25at 20:26; Start 04/19/25 at 20:00; Stop 04/19/25 at 20:01; Status DC Acetaminophen 1,000 mg ONCE ONCE PO Last administered on 04/19/25at 20:53; Start 04/19/25 at 20:30; Stop 04/19/25 at 20:34; Status DC Lidocaine 1 each ONCE ONCE TP Last administered on 04/19/25at 20:52; Start 04/19/25 at 20:30; Stop 04/19/25 at 20:34; Status DC Acetaminophen 650 mg Q6H PRN PO Last administered on 04/21/25at 02:20; Start 04/19/25 at 22:00; Stop 05/19/25 at 21:59 Enoxaparin Sodium 40 mg DAILY SQ Last administered on 04/22/25at 08:14; Start 04/20/25 at 09:00; Stop 04/22/25 at 20:00; Status DC Famotidine 20 mg DAILY PO Last administered on 04/29/25at 08:48; Start 04/20/25 at 09:00; Stop 05/20/25 at 08:59 Hydralazine HCl 10 mg Q6H PRN IV; Start 04/19/25 at 22:00; Stop 04/20/25 at 10:52; Status DC Lactated Ringer's 1,000 ml @ 100 mls/hr Q10H IV Last administered on 04/21/25at 12:40; Start 04/19/25 at 22:00; Stop 04/20/25 at 10:52; Status DC Lactulose 20 gm BID PRN PO; Start 04/19/25 at 22:00; Stop 05/19/25 at 21:59 Morphine Sulfate 4 mg Q4H PRN IVP; Start 04/19/25 at 22:00; Stop 04/20/25 at 10:52; Status DC Ondansetron HCl 4 mg Q6H PRN IV Last administered on 04/24/25at 22:19; Start 04/19/25 at 22:00; Stop 05/19/25 at 21:59 Ceftriaxone Sodium 1 gm Q24H IVPB Last administered on 04/22/25at 10:53; Start 04/20/25 at 10:00; Stop 04/22/25 at 12:41; Status DC Hydralazine HCl 5 mg Q6H PRN IV; Start 04/20/25 at 16:00; Stop 05/20/25 at 15:59 Ketorolac Tromethamine 15 mg Q6H PRN IV Last administered on 04/20/25at 22:08; Start 04/20/25 at 11:00; Stop 04/22/25 at 19:58; Status DC Lidocaine 1 each DAILY TP Last administered on 04/29/25at 08:48; Start 04/21/25 at 09:00; Stop 05/21/25 at 08:59 Magnesium Sulfate 50 ml @ 0 mls/hr PROTOCOL IV Last administered on 04/24/25at 06:11; Start 04/21/25 at 08:30; Stop 05/21/25 at 08:29 Potassium Chloride 40 meq ONCE ONCE PO Last administered on 04/21/25at 12:06; Start 04/21/25 at 08:30; Stop 04/21/25 at 08:31; Status DC Doxycycline Hyclate 250 ml @ 125 mls/hr Q12H IV Last administered on 04/22/25at 08:14; Start 04/21/25 at 08:30; Stop 04/22/25 at 12:41; Status DC Lactated Ringer's 1,000 ml @ 50 mls/hr Q20H IV Last administered on 04/24/25at 02:58; Start 04/21/25 at 12:30; Stop 04/25/25 at 07:47; Status DC Gadoterate Meglumine 10 mmol STK-MED ONCE IV; Start 04/21/25 at 13:44; Stop 04/21/25 at 13:44; Status DC Promethazine HCl 12.5 mg Q8H5 PRN IM Last administered on 04/22/25at 12:25; Start 04/22/25 at 12:30; Stop 05/22/25 at 12:29 Cefepime HCl 2 gm Q8H IVPB Last administered on 04/29/25at 13:53; Start 04/22/25 at 13:00; Stop 05/02/25 at 12:59 Metronidazole/ Sodium Chloride 100 ml @ 100 mls/hr Q8H6 IVPB Last administered on 04/29/25at 06:32; Start 04/22/25 at 14:00; Stop 05/02/25 at 13:59 Sodium Chloride 500 ml @ 0 mls/hr Q0M STAT IV Last administered on 04/22/25at 14:39; Start 04/22/25 at 13:17; Stop 04/22/25 at 13:22; Status DC Diatrizoate Meglum/ Diatrizoate Sod 30 ml STK-MED ONCE .ROUTE; Start 04/22/25 at 13:38; Stop 04/22/25 at 13:38; Status DC Vancomycin HCl 1 each AD IV; Start 04/22/25 at 15:00; Stop 04/23/25 at 22:23; Status DC Vancomycin HCl 500 ml @ 166.667 mls/hr ONCE ONCE IV Last administered on 04/22/25at 15:10; Start 04/22/25 at 15:00; Stop 04/22/25 at 17:59; Status DC Iohexol 75 ml STK-MED ONCE IV; Start 04/22/25 at 15:29; Stop 04/22/25 at 15:29; Status DC Hydromorphone HCl 0.5 mg Q4H PRN IVP; Start 04/22/25 at 20:00; Stop 04/27/25 at 19:59; Status DC Enoxaparin Sodium 40 mg Q12H SQ Last administered on 04/27/25at 08:10; Start 04/22/25 at 21:00; Stop 04/27/25 at 13:24; Status DC Labetalol HCl 10 mg ONCE ONCE IV Last administered on 04/23/25at 00:10; Start 04/23/25 at 00:00; Stop 04/23/25 at 00:02; Status DC Labetalol HCl 10 mg Q6H PRN IV; Start 04/23/25 at 00:00; Stop 05/23/25 at 00:00 Vancomycin HCl 250 ml @ 125 mls/hr ONCE ONCE IV Last administered on 04/23/25at 17:55; Start 04/23/25 at 18:00; Stop 04/23/25 at 22:23; Status DC Promethazine HCl 25 mg ONCE ONCE IM Last administered on 04/24/25at 00:59; Start 04/24/25 at 01:00; Stop 04/24/25 at 01:01; Status DC Furosemide 20 mg Q8H IV Last administered on 04/25/25at 03:06; Start 04/24/25 at 19:00; Stop 04/25/25 at 03:01; Status DC Dextrose 1,000 ml @ 50 mls/hr Q20H IV Last administered on 04/25/25at 10:38; Start 04/25/25 at 08:00; Stop 04/25/25 at 16:53; Status DC Iron Sucrose 200 mg DAILY IV Last administered on 04/28/25at 09:20; Start 04/26/25 at 09:00; Stop 04/28/25 at 11:00; Status DC Midazolam HCl 2 mg STK-MED ONCE .ROUTE Last administered on 04/26/25at 10:08; Start 04/26/25 at 09:01; Stop 04/26/25 at 09:01; Status DC Fentanyl Citrate 100 mcg STK-MED ONCE .ROUTE Last administered on 04/26/25at 10:06; Start 04/26/25 at 09:01; Stop 04/26/25 at 09:01; Status DC Nystatin 1 APPLICATION BID TP Last administered on 04/29/25at 08:55; Start 04/26/25 at 14:00; Stop 05/26/25 at 13:59 Heparin Sodium (Porcine) *calculation based on ACTUAL B... AD PRN IV; Start 04/27/25 at 14:00; Stop 05/27/25 at 13:59 Heparin Sodium/ Dextrose 250 ml @ 0 mls/hr Q6H IV Last administered on 04/29/25at 07:09; Start 04/27/25 at 14:00; Stop 05/27/25 at 13:59 Heparin Sodium (Porcine) 10,000 unit ONCE ONCE IV Last administered on 04/27/25at 15:53; Start 04/27/25 at 15:30; Stop 04/27/25 at 15:37; Status DC Ipratropium [place] 0.5 MG Q6H PRN IH Last administered on 04/29/25at 11:10; Start 04/28/25 at 19:30; Stop 05/28/25 at 19:29 Furosemide 20 mg Q12H IV Last administered on 04/29/25at 11:08; Start 04/29/25 at 11:00; Stop 05/29/25 at 10:59 Vancomycin HCl 1 each AD IV; Start 04/29/25 at 11:00; Stop 05/13/25 at 10:59 Sodium Chloride 4 ml STK-MED ONCE IH Last administered on 04/29/25at 11:10; Start 04/29/25 at 10:49; Stop 04/29/25 at 10:49; Status DC Vancomycin HCl 500 ml @ 250 mls/hr ONCE ONCE IV Last administered on 04/29/25at 11:08; Start 04/29/25 at 11:00; Stop 04/29/25 at 12:59; Status DC Vancomycin HCl 250 ml @ 125 mls/hr Q8H IV; Start 04/29/25 at 21:00; Stop 05/09/25 at 20:59 JANETTE GEE MD Apr 29, 2025 14:09
[2025-04-29] MEDS: VANCOMYCIN 1.25 GM/250 ML BAG 250 ML IV SCH (20:48)
[2025-04-30] VITALS (13 sets, daily range): BP systolic 104–124; BP diastolic 61–77; PULSE 79–112; RESP 18–22; TEMP 97.3–100.1; O2SAT 95–98
--- NOTE | 2025-04-30 03:34 | PN ---
INFECTIOUS DISEASE FOLLOWUP NOTE DATE OF SERVICE: 04/29/2025 SUBJECTIVE: The patient is seen and examined at bedside today. The patient has no fever, no chills. The patient yet to have bowel movement more than one week. No bleeding tendency. No rashes or itchiness. No dysuria or hematuria. WBC remain elevated. No joint pain or joint swelling. PHYSICAL EXAMINATION: VITAL SIGNS: Temperature today EYES: No icterus. Pupils equal and reactive. HENT: No oral thrush seen. Moist oral mucosa. NECK: Supple. No JVD or thyromegaly. LUNGS: Good air entry. No rales. No rhonchi. CARDIOVASCULAR: S1 and S2, regular. No murmur heard. ABDOMEN: Morbidly obese. Bowel sound is present. Colostomy in place. CENTRAL NERVOUS SYSTEM: Awake, alert, oriented x 3. Bedbound debility. SKIN: No rashes, no itchiness. LYMPHATIC: No peripheral lymphadenopathy. MUSCULOSKELETAL: No joint swelling, erythema or tenderness. BACK: No deformity. No pressure ulcer. ASSESSMENT: A 35-year-old male with multiple problems including: * Sepsis. * Colon cancer. * Morbid obesity. * Debility. * Leukocytosis. * Anemia. PLAN: * Continue vancomycin. * Continue cefepime. * Continue pain management. * The patient will be given laxative. * Continue DVT prophylaxis. * Continue antiemetics. * The patient will follow up closely. TID: [id number] RECEIPT: [id number]
[2025-04-30 03:41] LABS: IMMATURE GRANULOCYTE ABSOLUTE 2.32 K/uL (0-1); NUCLEATED RED BLOOD CELLS 0.1 % (0.0-0.19); PLATELET COUNT (AUTO) 292 K/uL (130-400); RED BLOOD CELL COUNT(AUTO) 4.03 MIL/uL (4.50-6.20); RED CELL DISTRIBUTION WIDTH 19.1 % (11.0-15.5); WHITE BLOOD COUNT (AUTO) 24.7 K/uL (4.8-10.8)
[2025-04-30 04:03] LABS: ASPARTATE AMINOTRANSFERASE 29.0 U/L (10-37); CREATININE 0.7 mg/dL (0.5-1.3); GLOMERULAR FILTR. RATE CALC 123.0 mL/min (>90); GLUCOSE,RANDOM 113.0 mg/dL (70-105); SODIUM SERUM 135.0 mmol/L (136-145); TOTAL PROTEIN, SERUM 6.9 g/dL (6.0-8.3); UREA NITROGEN, BLOOD 16.0 mg/dL (7-18)
[2025-04-30] MEDS: SODIUM CHLORIDE 3% FOR INHALATION 4 ML/AMP VIAL.NEB IH ONE (07:05)
--- NOTE | 2025-04-30 07:56 | PN ---
[facility] PROGRESS NOTE Date of Service: Apr 30, 2025 Time of Service: 07:54 SUBJECTIVE: 04/20 the patient has been seen and examined at bedside, case discussed with the RN, no acute events overnight, the time of my visit, the patient is awake, following commands, blood pressure 140/90, afebrile, saturating normal on room air. The patient is morbidly obese, he uses a CPAP at home, currently CPAP at bedside during my visit. WBC 14.0, hemoglobin 10.4, hematocrit 34.8, platelet count of 305. CMP shows sodium 141, potassium 3.5, BUN 70, creatinine 0.9, iron level of 25. X-ray of the knee showing moderate to severe three, power mental right knee osteoarthritis, predominantly in the lateral compartment, with small joint effusion. No acute fracture. Orthopedic physician consultation requested, we will follow input and recommendation. MRI of the right knee requested, however due to morbid obesity, might not be able to do it. Discussed with the mother is at the bedside, all questions answered, in agreement. 04/21 patient has been seen and examined at bedside, case discussed with the RN, no acute events overnight, the time my visit he is awake, following commands, admits mild dry nonproductive cough, spiked fever 102.6. Denied chest pain, shortness shortness for breath, no nausea, no vomiting, no abdominal discomfort. The patient has a colostomy bag, on examination, liquid stool noted. WBC slowly trending down at 12.7, hemoglobin stable 11.6. Magnesium 1.7. Added doxycycline 100 mg IV q.12 hours. Follow serology to include SARS antigen, influenza and rapid strep. We will give magnesium sulfate 2 g IV x1. We will order GI stool panel. Patient is scheduled for MRI to the right knee today, continue lidocaine patch, discussed with the orthopedic physician today, we will follow input and recommendation. 04/22 patient is seen and examined at bedside, discussed with the RN. Patient currently feels nauseated. He admits mild discomfort to the right lower quadrant. BP 135/77, mildly tachycardic at 108, saturating normal on room air. Maximum temperature last 24 hours 102.7. CBC shows a hemoglobin of 11.6, hematocrit 35.7, platelet count of 276, with a platelet count of 23.8. Creatinine 2.1. MRI of the right knee shows tricompartmental osteoarthritis with osteophytosis and diffuse cartilage loss, medial and lateral meniscal with complex degenerative tear involving posterior horns and bodies, meniscal tear severity grade 3, full-thickness chondral defect of the lateral femoral condyle, with a underlying subchondral edema, small reactive joint effusion with mild synovitis. We will upgraded the patient to the PCU, LR at 50 mL/hours, follow repeat CBC, CMP and magnesium level. Continue Rocephin and doxycycline IV. We will order a CT of the abdomen and pelvis without contrast to rule out intra- abdominal acute pathology. Orthopedic input noted and appreciated, patient with bad arthritis, we will finally benefit from knee replacement, however considering his morbid obesity, it is not indicated right now. Recommended con servative approach. Mother at bedside, all questions answered, updated, in agreement with plan of care. 04/23 patient is seen and examined at bedside, discussed with the RN, no acute events overnight, patient upgraded to the ICU yesterday due to sepsis and developing small bowel obstruction. Today the patient is awake, following commands, he is NPO, NG tube to intermittent suction, BP 120/76, heart rate of 111, saturating 96% 3 L nasal cannula, temperature 98.4. WBC of 27.6, hemoglobin 10.6, hematocrit 35.5, platelet count 240, creatinine improved to 1.2. Septic workup with blood culture positive for Staphylococcus epidermidis. Echocardiogram and chest x-ray pending. Patient will remain admitted to the ICU, continue broad-spectrum IV antibiotics, we will follow surgical input recommendation. Continue to follow critical Care and ID input and recommendation. And we will update the mother regarding results of CT of the abdomen pelvis and further plan of care when she is present in the room. CT abdomen and pelvis reviewed, as follows: * Patient is undergoing mass evaluation. * Interval progression since 22 April 2025 with a new right upper lobe spiculated infiltrative mass measuring 5.4 ??? 4.6 cm infiltrating mediastinal pleura and abutting the right main pulmonary artery. * Bulky mediastinal lymphadenopathy with largest node measuring 4 cm, involving right paratracheal, prevascular, precarinal, and subcarinal stations, increased since prior study. * Multiple bilateral spiculated pulmonary nodules (1???2.5 cm), consistent with metastatic disease progression. * Bilateral marked diffuse adrenal enlargement (Right 5.9 ??? 3.6 cm, Left 7.6 ??? 5.4 cm), likely metastatic or hyperplastic. 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 * Degenerative thoracolumbar spondylosis with L4 vertebral body wedging (30???40% height loss), unchanged. * Comparison is made with the exam dated 22 April 2025. Overall findings indicate worsening metastatic disease with new primary and gloria lesions and mechanical bowel obstruction requiring clinical and surgical correlation. Recommendations include oncologic evaluation and PET-CT staging, alongside urgent surgical consultation for bowel obstruction. 04/24 patient is seen and examined at bedside, discussed with the RN, no acute events overnight, patient downgraded from the ICU to the PCU, he remains NPO, NG tube connected to intermittent suction, output in the last 12 hours 200 mL. BP 146/150, heart rate of 101, afebrile, saturating 96-97% on nasal cannula. CBC shows a hemoglobin of 9.9, hematocrit 33.5, platelet count of 235, with WBC of 21.3. CMP with sodium 146, potassium 3.8, BUN of 18, creatinine 0.9, magnesium 1.8. Blood culture 04/21/2025 positive for Staphylococcus epidermidis. Repeat blood cultures 04/23/2025 no growth after 24 hours echocardiogram 04/23/2025 LVEF 50-55%, no left ventricle thrombus, no intracardiac masses, no valvular vegetations. Today chest x-ray pending. Patient will remain admitted to the PCU, NPO, intermittent suction, continue to follow surgical input recommendation, continue broad-spectrum IV antibiotics, follow WBC in a.m.. Follow KUB. I HAVE CONTACTED THE DEPARTMENT OF MEDICAL RECORDS [facility], SPOKE WITH ZENA AT PHONE NUMBER [phone], I HAVE REQUESTED MEDICAL RECORDS. WE WILL FOLLOW UP. 04/25 patient is seen and examined at bedside, case discussed with the RN, no acute events overnight, he remains comfortably in bed, NPO, NG tube to intermittent suction, he is awake, following commands, BP 128/90, area of 101, afebrile. Still feels distended. On examination colostomy bag, enema output noted. KUB pending. KUB from 04/24/2025 showing markedly dilated small bowel loops up to 5.6 cm, consistent with distal small-bowel obstruction, no pneumoperitoneum, pneumatosis intestinalis or portal venous gas. I received medical records from [facility], patient was admitted on 11/19/2024 and discharged 12/08/2024. Areolar in the hospital patient underwent exploratory laparoscopy, laparotomy and creation of transverse loop colostomy 11/28/2024. Patient was evaluated by oncologist Braulio Bell. 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 Per my discussion with the mother, from [facility] the patient was discharged to [facility] to [facility] and from there he went home. Patient has not had a follow up appointment with the general surgeon or oncologist after that. We have requested Oncology consultation here during this admission. Pathology report from rectal biopsy shows moderately differentiated adenocarcinoma, then new pulmonary nodules and mediastinal lymphadenopathy as per CT scan indicates the possibility of metastatic disease. CEA is [id number]. Req uested pulmonary nodule biopsy by IR. Patient will remain admitted to the PCU, we will continue NG tube to intermittent suction, NPO, TPN, follow surgical input and recommendation. Follow repeat KUB. Mother at bedside, updated, all questions answered. Plan of care discussed with the patient as well, in agreement. 04/26 patient is seen and examined at bedside, discussed with the RN, no acute events overnight, patient is status post CT-guided biopsy of left anterior rib mass, 04/26/2025, tolerated the procedure well. At the time of my visit, he is awake, following commands, denied chest pain, shortness shortness for breath, no nausea, no vomiting. Colostomy bag full of air. No stool or liquid noted. Plan is for the patient to start clear liquid diet and advanced as tolerated. We will follow results of pathology. Continue to follow a.m. labs. Mother at bedside, updated. 04/27 patient is seen and, discussed with the RN, no acute events overnight, alert oriented x3, tolerating clear liquid diet. Passing gas in the colostomy bag but no bowel movement yet. Patient was swollen to the right upper extremity. Doppler showing deep venous thrombosis involving the right axillary vein and brachial veins, nonocclusive thrombosis of the right cephalic vein (superficial venous thrombosis). Correlate clinically for pulmonary embolism risk. Hemoglobin of 10.4, hematocrit 35.9, platelet count of 18.7. Findings of Doppler discussed with the mother, we will start the patient on heparin drip, risks versus benefits discussed, agreed to proceed with the anticoagulation. We will insert midline in the left upper extremity. We will continue to clinically monitor the patient.status post CT-guided biopsy of left anterior rib mass, 04/26/2025, follow up pathology. Continue to follow oncology input and recommendation. 04/28 patient is seen and, discussed with the RN, no acute events overnight, alert oriented x3, remains admitted to the PCU, alert oriented x3 at the time of my visit, tolerating soft diet, passing gas but no BM yet. Doppler showing deep venous thrombosis involving the right axillary vein and brachial veins, nonocclusive thrombosis of the right cephalic vein (superficial venous thr ombosis). Continue heparin drip. Oncology input noted and appreciated. Patient will need Port-A-Cath insertion before discharge home. status post CT- guided biopsy of left anterior rib mass, 04/26/2025, follow up pathology. Continue broad-spectrum IV antibiotics, trend WBC in a.m. per mother at bedside, updated. 04/29/25 The patient continue with Heparin drip given to DVT right axillary vein and brachial vein: will transition to po close to discharged. This patient will need Port-A-Cath insertion before discharge home. This patient need to be clear for Port-A-Cath insertion by infectious disease 04/30/25 patient is lying in bed primary nurse reports no events overnight. Patient we will have IR place Port-A-Cath tomorrow. Patient continues with broad-spectrum antibiotics continues heparin drip transitioned to p.o. post procedure. REVIEW OF SYSTEMS CONSTITUTIONAL: Denies fevers, chills, or night sweats. No unintentional weight loss reported. NEUROLOGICAL: Denies headache, amaurosis fugax, motor weakness, sensory deficit, vertigo/spinning sensation, gait abnormalities, or tremors. ENT: No hearing loss, otalgia, otorrhea, rhinitis, rhinorrhea, hoarseness, or sore throat. CARDIOVASCULAR: Denies any exertional angina, dyspnea on exertion, orthopnea, paroxysmal nocturnal dyspnea, palpitations, life-threatening arrhythmias, claudication. PULMONARY: Denies any shortness of breath, cough, phlegm/sputum, hemoptysis, pleuritic chest pain. SLEEP: Denies morning headaches, daytime somnolence or napping. Denies difficulty falling asleep, staying asleep, waking from sleep. Denies knowledge of snoring. GASTROINTESTINAL: Denies any type of dysphagia to either liquids or solids. Denies nausea, vomiting, pyrosis, early satiety, abdominal pain, diarrhea, constipation, or changes in stool consistency or caliber. Denies coffee-ground emesis, hematemesis, hematochezia, or melanotic stools. GENITOURINARY: Denies frequency, urgency, nocturia, hematuria or incontinence (Storage/Irritative symptoms.) Low urinary stream, straining to void, urinary intermittency or hesitancy, splitting of the voiding stream, terminal dribbling. ENDOCRINOLOGIC: Denies polyuria, polydipsia, polyphagia or heat/cold intolerances. HEMATOLOGIC: Denies thrombophilia/previous clots, or coagulopathy/bleeding disorders. ONCOLOGIC: Denies personal history of malignancy. DERMATOLOGIC: Denies rashes or pruritus. PSYCHIATRIC: Denies any suicidal or homicidal ideation. Denies hallucinations. PHYSICAL EXAM GENERAL APPEARANCE: Patient awake, following commands, NG tube to intermittent suction. NEUROLOGICAL: Cranial nerves II-XII grossly intact. Motor is 5/5 in bilateral upper and lower extremities proximal to distal. No sensory deficits. HEENT: Face is symmetric. Pupils are equal and reactive. Extraocular movements are intact. NECK: Supple. No JVD. No thyromegaly. No submental, submandibular, pre-/postauricular, occipital or supraclavicular lymphadenopathy. CHEST: Normal chest expansion. No Telemetry. LUNGS: Absence of any rales, rhonchi or any wheezing. CARDIOVASCULAR: Regular. S1 and S2 normal. No appreciable rubs, murmurs or gallops. ABDOMEN: Liquid output colostomy bag noted. : Deferred. No Doe. EXTREMITIES: Mild swelling to the right knee area, lidocaine patch in place. SKIN: No skin breakdown. Vital Signs (last 8hr) Date Time Temp Pulse Resp B/P (MAP) Pulse Ox O2 Delivery O2 Flow Rate FiO2 04/30/25 07:05 94 20 N/Cannula Low lpm 3.0 32 04/30/25 03:25 98.4 93 22 104/71 98 BIPAP 04/30/25 03:05 101 18 40 04/30/25 00:48 100 18 40 LABS: Laboratory: Test 04/30/25 03:05 04/30/25 00:23 04/29/25 04:29 Range/Units White Blood Count 24.7 H 4.8-10.8 K/uL Red Blood Count 4.03 L 4.50-6.20 MIL/uL Hemoglobin 9.4 L 14.0-18.0 g/dL Hematocrit 31.1 L 42-54 % Mean Corpuscular Volume 77.2 L 79-99 fL Mean Corpuscular Hemoglobin 23.3 L 27.0-33.0 pg Mean Corpuscular Hemoglobin Concent 30.2 L 32.0-36.0 g/dL Red Cell Distribution Width 19.1 H 11.0-15.5 % Platelet Count 292 130-400 K/uL Mean Platelet Volume 10.6 H 7.5-10.5 fL Immature Granulocyte % (Auto) 9.4 H 0-1 % Neutrophils (%) (Auto) 72.8 40.0-77.0 % Lymphocytes (%) (Auto) 8.9 L 21.0-51.0 % Monocytes (%) (Auto) 7.6 3.0-13.0 % Eosinophils (%) (Auto) 0.6 0.0-8.0 % Basophils (%) (Auto) 0.7 0.0-5.0 % Neutrophils # (Auto) 17.9 H 1.8-7.7 K/uL Lymphocytes # (Auto) 2.2 1.0-4.8 K/uL Monocytes # (Auto) 1.9 H 0.1-1.0 K/uL Eosinophils # (Auto) 0.16 0.00-0.70 K/uL Basophils # (Auto) 0.18 0.00-0.20 K/uL Absolute Immature Granulocyte (auto 2.32 H 0-1 K/uL Nucleated Red Blood Cells 0.1 0.0-0.19 % Sodium Level 135 L 136-145 mmol/L Potassium Level 3.6 3.5-5.1 mmol/L Chloride Level 100 L 101-111 mmol/L Carbon Dioxide Level 27 21-32 mmol/L Blood Urea Nitrogen 16 7-18 mg/dL Creatinine 0.7 0.5-1.3 mg/dL Glomerular Filtration Rate Calc 123 >90 mL/min Random Glucose 113 H 70-105 mg/dL Lactic Acid Level 1.6 0.8-2.5 mmol/L Total Calcium 8.3 L 8.5-10.1 mg/dL Magnesium Level 1.80 1.80-2.40 mg/dL Total Bilirubin 0.8 0.2-1.0 mg/dL Aspartate Amino Transf (AST/SGOT) 29 10-37 U/L Alanine Aminotransferase (ALT/SGPT) 13 12-78 U/L Alkaline Phosphatase 139 H 50-136 U/L Total Protein 6.9 6.0-8.3 g/dL Albumin 1.7 L 3.5-5.0 g/dL Activated Partial Thromboplast Time 58.7 H 26.3-35.5 SEC Procalcitonin 2.11 H 0.05-0.5 ng/mL Current Medications Medications (Trade) Dose Ordered Sig/Checo Route PRN Reason Start Time Stop Time Status Last Admin Dose Admin Acetaminophen (TYLenol 325MG TAB) 650 mg Q6H PRN PO FEVER/pain 1-3 04/19/25 22:00 05/19/25 21:59 04/21/25 02:20 650 MG Cefepime HCl (MAXipime 2 gm vial) 2 gm Q8H IVPB 04/22/25 13:00 05/02/25 12:59 04/30/25 04:27 2 GM Ceftriaxone Sodium (ROCEphine 1G INJ) 1 gm Q24H IVPB 04/20/25 10:00 04/22/25 12:41 DC 04/22/25 10:53 1 GM Dextrose 1,000 ml @ 50 mls/hr Q20H IV 04/25/25 08:00 04/25/25 16:53 DC 04/25/25 10:38 100 MLS/HR Doxycycline Hyclate 250 ml @ 125 mls/hr Q12H IV 04/21/25 08:30 04/22/25 12:41 DC 04/22/25 08:14 125 MLS/HR Enoxaparin Sodium (Lovenox) 40 mg DAILY SQ 04/20/25 09:00 04/22/25 20:00 DC 04/22/25 08:14 40 MG Enoxaparin Sodium (Lovenox) 40 mg Q12H SQ 04/22/25 21:00 04/27/25 13:24 DC 04/27/25 08:10 40 MG Famotidine (Pepcid 20mg Tab) 20 mg DAILY PO 04/20/25 09:00 05/20/25 08:59 04/29/25 08:48 20 MG Furosemide (LASix 20MG VIAL) 20 mg Q12H IV 04/29/25 11:00 05/29/25 10:59 04/29/25 23:24 20 MG Furosemide (LASix 20MG VIAL) 20 mg Q8H IV 04/24/25 19:00 04/25/25 03:01 DC 04/25/25 03:06 20 MG Heparin Sodium (Porcine) (HEParin 5,000 UNIT VIAL) *calculation based on ACTUAL B... AD PRN IV HEPARIN PROTOCOL 04/27/25 14:00 05/27/25 13:59 Heparin Sodium/ Dextrose 250 ml @ 0 mls/hr Q6H IV 04/27/25 14:00 05/27/25 13:59 04/29/25 21:04 18.59 MLS/HR Hydralazine HCl (APRESOLine 20MG INJ) 5 mg Q6H PRN IV For:SBP above 160;DBP above 90 04/20/25 16:00 05/20/25 15:59 Hydralazine HCl (APRESOLine 20MG INJ) 10 mg Q6H PRN IV For:SBP above 160;DBP above 90 04/19/25 22:00 04/20/25 10:52 DC Hydromorphone HCl (DiLAUDid 0.5MG INJ) 0.5 mg Q4H PRN IVP SEVERE PAIN (7-10) 04/22/25 20:00 04/27/25 19:59 DC Ipratropium [place] (AtrovENT UD) 0.5 MG Q6H PRN IH SHORTNESS OF BREATH 04/28/25 19:30 05/28/25 19:29 04/29/25 11:10 0.5 MG Iron Sucrose (VenoFER) 200 mg DAILY IV 04/26/25 09:00 04/28/25 11:00 DC 04/28/25 09:20 200 MG Ketorolac Tromethamine (toRADol) 15 mg Q6H PRN IV MODERATE PAIN (4-6) 04/20/25 11:00 04/22/25 19:58 DC 04/20/25 22:08 15 MG Labetalol HCl (TRANdate 20MG SYG) 10 mg Q6H PRN IV SUSTAINED HR >120 04/23/25 00:00 05/23/25 00:00 Lactated Ringer's 1,000 ml @ 50 mls/hr Q20H IV 04/21/25 12:30 04/25/25 07:47 DC 04/24/25 02:58 75 MLS/HR Lactated Ringer's 1,000 ml @ 100 mls/hr Q10H IV 04/19/25 22:00 04/20/25 10:52 DC 04/21/25 12:40 100 MLS/HR Lactulose (Constulose 20gm/ 30ml Udcup) 20 gm ACHS PRN PO CONSTIPATION 04/29/25 20:00 05/29/25 19:59 Lactulose (Constulose 20gm/ 30ml Udcup) 20 gm BID PRN PO CONSTIPATION 04/19/25 22:00 04/29/25 19:41 DC Lidocaine (Lidocaine Patch 4%) 1 each DAILY TP 04/21/25 09:00 05/21/25 08:59 04/29/25 08:48 1 EACH Magnesium Sulfate 50 ml @ 0 mls/hr PROTOCOL IV 04/21/25 08:30 05/21/25 08:29 04/24/25 06:11 25 MLS/HR Metronidazole/ Sodium Chloride 100 ml @ 100 mls/hr Q8H6 IVPB 04/22/25 14:00 05/02/25 13:59 04/29/25 23:24 100 MLS/HR Morphine Sulfate (morPHINE 4MG SYG) 4 mg Q4H PRN IVP SEVERE PAIN (7-10) 04/19/25 22:00 04/20/25 10:52 DC Nystatin (NystOP 15 GM POWDER) 1 APPLICATION BID TP 04/26/25 14:00 05/26/25 13:59 04/29/25 21:07 1 APPL Ondansetron HCl (zoFRAN 4MG INJ) 4 mg Q6H PRN IV NAUSEA/VOMITING 04/19/25 22:00 05/19/25 21:59 04/24/25 22:19 4 MG Promethazine HCl (Phenergan) 12.5 mg Q8H5 PRN IM NAUSEA/VOMITING 04/22/25 12:30 05/22/25 12:29 04/22/25 12:25 12.5 MG Sodium Chloride 500 ml @ 0 mls/hr Q0M STAT IV 04/22/25 13:17 04/22/25 13:22 DC 04/22/25 14:39 600 MLS/HR Vancomycin HCl 250 ml @ 125 mls/hr Q8H IV 04/29/25 21:00 05/09/25 20:59 04/30/25 05:52 125 MLS/HR Vancomycin HCl (Vancomycin Protocol) 1 each AD IV 04/22/25 15:00 04/23/25 22:23 DC Vancomycin HCl (Vancomycin Protocol) 1 each AD IV 04/29/25 11:00 05/13/25 10:59 DIAGNOSTICS / RADIOLOGY: [ ] ASSESSMENT: Severe sepsis with MODS, resolved Leukocytosis Gram-positive cocci bacteremia Status post left rib biopsy by IR on 04/26/2025 New right upper lobe spiculated infiltrative mass measuring 5.4 x 4.6 cm infiltrating mediastinal pleura and albumin in the right main pulmonary artery Bulky mediastinal lymphadenopathy with the largest node measuring 4 cm involving the right paratracheal, prevascular, and subcarinal stations Multiple bilateral spiculated pulmonary nodules consistent with metastatic disease progression Bilateral marked diffuse adrenal enlargement likely metastatic or hyperplastic Left iliac fossa 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 Right upper extremity DVT involving the axillary and brachial veins PLAN: patient is seen and, discussed with the RN, no acute events overnight, alert oriented x3, remains . Doppler showing deep venous thrombosis involving the right axillary vein and brachial veins, nonocclusive thrombosis of the right cephalic vein (superficial venous thrombosis). Continue heparin drip. Oncology input noted and appreciated. Patient will need Port-A-Cath insertion before d ischarge homes scheduled for tomorrow, Discussed plan of care with patient mother at bedside. NEURO: Minimize central acting medications as possible. Fall Precautions. Well lighted room through the day and minimize interruptions through the night to prevent acute delirium. PULMONARY: Supplemental 02 as needed BiPAP as necessary, for respiratory distress Titrate Fio2 to keep Spo2 > or = 90% DuoNebs and CPT as needed IS hourly while awake for pulmonary hygiene prn Out of bed to chair as tolerated Maintain aspiration precautions at all times CARDIOVASCULAR: Follow hemodynamics. Vital signs per facility protocol GI & NUTRITION: Continue nutritional support Aspirations precautions Prokinetic agents and laxatives as needed KIDNEYS & ELECTROLYTES: Strict monitoring of intake and output Daily weights Avoid nephrotoxic agents Monitor electrolytes and replace as needed Goal urine output of 30mL/hr or 0.5mL/kg/hr Medications to be dosed according to renal function. Avoid contrast if possible ENDOCRINE: Maintain blood glucose between 100-180 at all times. Insulin sliding scale for blood glucose management Hypoglycemia and hyperglycemia protocol in place INFECTIOUS DISEASE: Trend temperature, WBC and procalcitonin level Follow cultures, deescalate antibiotics as soon as possible. Panculture if new onset fever HEMATOLOGY & COAGULATION: Monitor H&H. Keep Hgb > 7 Transfuse 1 unit of PRBC for Hgb < 7 Transfuse 1 pack of platelets of platelets < 20, 000 Watch for any signs and symptoms of bleeding SKIN: Pressure ulcer prevention per facility protocol Specialty mattress as needed ORTHO/REHAB Continue PT/OT PRN: MEDICATIONS Tylenol 650 mg po every 4 hrs for fever zofran 4 mg IV every 6 hrs for n/v Hydralazine 5 mg IV every 4 hrs systolic pressure > 160 bowel regiment: lactulose 20 gm PO BID PRN constipation Supportive measures: Continue GI and DVT prophylaxis Disposition: Pending improvement in clinical condition All questions answered time spent: > 35 min ATTESTATION BY PHYSICIAN I have seen and examined the patient. I reviewed the documentation, medical decision making, and treatment plan as noted by the mid-level provider above. I agree with the findings and plan of care. Justin Arredondo IV, MD, [facility] Apr 30, 2025 07:55
[2025-04-30] MEDS: LACTULOSE 20 GM/30 ML UDCUP PO PRN (09:33)
--- NOTE | 2025-04-30 09:44 | PN ---
[facility] PROGRESS NOTE Date Patient Seen: Apr 30, 2025 Time of Visit: 09:44 Supervising Physician: GAUTAM JHA MD Inpatient Consults: Dr. Nguyen, Dr. Abad, Dr. Henry, Dr. Johnson PROBLEM LIST: Severe sepsis with MODS, resolving Leukocytosis Staphylococcus epidermidis bacteremia, which is a contaminant. 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 INTERVAL HISTORY: Patient Is Awake Alert And Oriented X3. No major overnight events. As per RN and family patient has been has a bowel movement vitals passed gas via colostomy bag. He refused lactulose yesterday blood okay with taking a today. He is hemodynamically stable saturating 95% on 2 L via nasal cannula. Patient has been afebrile. White count is trending 24.7 H&H is 9.4/31.1 platelet count of 292 K. sodium 135 chloride 100 creatinine 0.7 GFR of 123. Lactic acid 1.6. Chest x-ray with increased pulmonary vascular congestion and atelectasis. Patient to continue IS. Physical therapy to continue. Multimodal pain management for right knee pain. Patient had one episode of vomiting this morning. NPO for now and order KUB. If any concerns to KUB results we will order CT abdomen and pelvis with oral contrast. PLAN Follow oncology recommendations KUB NPO monitor colostomy output Await for biopsy results Maintain O2 sats above 90%, wean off as tolerated CT chest shows bo ball lesions in lungs, likely metastatic disease Continue PUD and DVT PPX Patient is currently on heparin drip for DVT to upper extremity Follow general surgery recommendations "6 min walk" before DC / assess for home o2 needs continue IV abx vanco cefepim and flagyl REVIEW OF SYSTEMS: 12 point ROS reviewed with patient. Pertinent positives mentioned above. Otherwise negative. PHYSICAL EXAM: GENERAL: alert, weak, awake oriented x 3 HEENT: EOMI, Sclera non icteric, moist mucosa NC NECK: Supple, no JVD, trachea midline LUNGS: Diminished breath sounds bilaterally. No wheezes HEART: Normal rate and rhythm. Normal S1 and S2, without murmurs ABD: morbidly obese Abdomen soft, nontender. Bowel sounds hypoactive EXT: No clubbing cyanosis or edema NEURO: Alert and oriented to person, follows commands Vital Signs (last 8hr) Date Time Temp Pulse Resp B/P (MAP) Pulse Ox O2 Delivery O2 Flow Rate FiO2 04/30/25 07:15 98.2 93 18 118/70 94 Nasal Cannula 2.0 04/30/25 07:05 94 20 N/Cannula Low lpm 3.0 32 04/30/25 07:00 95 Nasal Cannula* 3 32 04/30/25 03:25 98.4 93 22 104/71 98 BIPAP 04/30/25 03:05 101 18 40 LABS: Hematology Labs: Test 04/30/25 03:05 Range/Units White Blood Count 24.7 H 4.8-10.8 K/uL Red Blood Count 4.03 L 4.50-6.20 MIL/uL Hemoglobin 9.4 L 14.0-18.0 g/dL Hematocrit 31.1 L 42-54 % Mean Corpuscular Volume 77.2 L 79-99 fL Mean Corpuscular Hemoglobin 23.3 L 27.0-33.0 pg Mean Corpuscular Hemoglobin Concent 30.2 L 32.0-36.0 g/dL Red Cell Distribution Width 19.1 H 11.0-15.5 % Platelet Count 292 130-400 K/uL Mean Platelet Volume 10.6 H 7.5-10.5 fL Immature Granulocyte % (Auto) 9.4 H 0-1 % Neutrophils (%) (Auto) 72.8 40.0-77.0 % Lymphocytes (%) (Auto) 8.9 L 21.0-51.0 % Monocytes (%) (Auto) 7.6 3.0-13.0 % Eosinophils (%) (Auto) 0.6 0.0-8.0 % Basophils (%) (Auto) 0.7 0.0-5.0 % Neutrophils # (Auto) 17.9 H 1.8-7.7 K/uL Lymphocytes # (Auto) 2.2 1.0-4.8 K/uL Monocytes # (Auto) 1.9 H 0.1-1.0 K/uL Eosinophils # (Auto) 0.16 0.00-0.70 K/uL Basophils # (Auto) 0.18 0.00-0.20 K/uL Absolute Immature Granulocyte (auto 2.32 H 0-1 K/uL Nucleated Red Blood Cells 0.1 0.0-0.19 % Chemistry Labs: Test 04/30/25 03:05 04/29/25 04:29 Range/Units Sodium Level 135 L 136-145 mmol/L Potassium Level 3.6 3.5-5.1 mmol/L Chloride Level 100 L 101-111 mmol/L Carbon Dioxide Level 27 21-32 mmol/L Blood Urea Nitrogen 16 7-18 mg/dL Creatinine 0.7 0.5-1.3 mg/dL Glomerular Filtration Rate Calc 123 >90 mL/min Random Glucose 113 H 70-105 mg/dL Lactic Acid Level 1.6 0.8-2.5 mmol/L Total Calcium 8.3 L 8.5-10.1 mg/dL Magnesium Level 1.80 1.80-2.40 mg/dL Total Bilirubin 0.8 0.2-1.0 mg/dL Aspartate Amino Transf (AST/SGOT) 29 10-37 U/L Alanine Aminotransferase (ALT/SGPT) 13 12-78 U/L Alkaline Phosphatase 139 H 50-136 U/L Total Protein 6.9 6.0-8.3 g/dL Albumin 1.7 L 3.5-5.0 g/dL Procalcitonin 2.11 H 0.05-0.5 ng/mL Coagulation Labs: Test 04/30/25 00:23 Range/Units Activated Partial Thromboplast Time 58.7 H 26.3-35.5 SEC DIAGNOSTICS / RADIOLOGY RESULTS: [ ] PLAN NEURO: Minimize central acting medications as possible. Maintain fall precautions, adequate lighting during the day PULMONARY: Supplemental 02 as needed. Maintain aspiration precautions at all times CARDIOVASCULAR: Follow hemodynamics. Vital signs per facility protocol GI & NUTRITION: Continue with nutritional support. Continue stool softeners and laxatives as needed. KIDNEYS & ELECTROLYTES: Strict monitoring of intake, output and overall fluid balance. Avoid nephrotoxic medications to the extent possible. Medications to be dosed according to renal function. Monitor electrolytes and replace as needed ENDOCRINE: Maintain blood glucose between 100-180 at all times. Hypoglycemia protocol in place INFECTIOUS DISEASE: Trend temperature, WBC and procalcitonin level Follow cultures, deescalate antibiotics as soon as possible. Panculture if new onset fever ONCOLOGY/HEMATOLOGY/COAGULATION: Monitor for s/s of bleeding Monitor hemoglobin, coagulation studies as needed SKIN: Pressure ulcer prevention per facility protocol Specialty mattress ORTHO/REHAB: Continue PT/OT Prophylaxis: Continue GI and DVT prophylaxis Code Status: Full Resuscitation Disposition: Per primary team Total critical care time: 36 minutes ATTESTATION BY PHYSICIAN I have evaluated the patient chart, medical records, and spoke with appropriate staff. I reviewed the documentation, medical decision making, and treatment plan as noted by the mid-level provider above. I agree with the findings and plan of care. Gautam Jha MD, [facility] Apr 30, 2025 09:44
[2025-04-30] MEDS ORDERED: LACTULOSE 20 GM/30 ML UDCUP PO PRN (13:00)
[2025-04-30] MEDS: MAGNESIUM CITRATE 296 ML SOLUTION PO ONE (13:19)
--- NOTE | 2025-04-30 22:04 | PN ---
FOLLOWUP PROGRESS NOTE SUBJECTIVE: A 35-year-old male with a history of colon mass. The patient presented and found to have metastatic disease. The patient did undergo lung biopsy results of which are all pending. The patient is being seen by Oncology. He has had acute on chronic renal failure in the hospital. Creatinine has been elevated and the patient is being seen as a followup visit for all of the above. REVIEW OF SYSTEMS: GENERAL: He is feeling weak and tired. HEENT: No change in vision. No change in hearing. CARDIOVASCULAR: There is no current chest pain or palpitations. PULMONARY: He has got chronic shortness of breath. GASTROINTESTINAL: He is tolerating diet. MUSCULOSKELETAL: Complains of weakness. PHYSICAL EXAMINATION: VITAL SIGNS: Blood pressure is 118/70, pulse in the 90s. GENERAL: He is a chronically ill young male lying in bed on the medical floor. HEENT: Head atraumatic. Pupils are equal, round, reactive to light. Oropharynx is without exudate. Nares clear. NECK: There is no JVP. There is no thyromegaly. No mass. CARDIOVASCULAR: Regular. There is no S3 or S4 gallop. LUNGS: Coarse with equal thoracic movement. ABDOMEN: Soft, nondistended and nontender. EXTREMITIES: There is no clubbing. No cyanosis. NEUROLOGICAL: He is awake. He is alert. LABORATORY DATA: Sodium 135, potassium 3.6, BUN 16, creatinine 0.7. Hemoglobin 9.4, hematocrit 31, white blood cell count is 24,000. IMPRESSION: * Acute on chronic renal failure. * Sepsis. * Colon mass with metastases. * Electrolyte abnormalities. PLAN: The patient's creatinine did stabilize in the hospital. The patient with sepsis and remains on the antibiotics. The patient is being seen by case management in regard to final disposition. The patient is status post lung biopsy and workup is ongoing per Oncology. Once the patient is discharged, the patient can follow up in the [facility]. TID: [id number] RECEIPT: [id number]
[2025-05-01] VITALS (10 sets, daily range): BP systolic 106–125; BP diastolic 64–73; PULSE 45–112; RESP 16–26; TEMP 98.1–98.9; O2SAT 93–97
--- NOTE | 2025-05-01 01:08 | HMCIMG ---
EXAM: CHEST RADIOGRAPH, 1 VIEW Technique: Single frontal expiratory view of the chest. Clinical Information: Decreased ostomy output. Findings: Lungs and large airways: Mild patchy opacities are present in both upper lobes; a right paratracheal suprahilar opacity is again seen; no lobar collapse is identified. Pleura: No pleural effusion or pneumothorax is identified. Heart and mediastinum: Cardiomediastinal silhouette is within normal limits. Bones/joints: No acute osseous abnormality is identified. Impression: * Comparison: Compared with chest radiograph dated 04/28/2025 07:29 EDT, bilateral basilar consolidation with associated mild atelectasis has resolved; mild patchy opacities in both upper lobes and the right paratracheal suprahilar opacity are unchanged; no pleural effusion or pneumothorax is identified. * Mild bilateral upper-lobe opacities, stable???correlate clinically for resolving infection or inflammatory change. * Expiratory acquisition limits assessment of lung volumes and may accentuate vascular crowding. /[place]
[2025-05-01 03:40] LABS: IMMATURE GRANULOCYTE ABSOLUTE 1.88 K/uL (0-1); NUCLEATED RED BLOOD CELLS 0.0 % (0.0-0.19); PLATELET COUNT (AUTO) 318 K/uL (130-400); RED BLOOD CELL COUNT(AUTO) 4.05 MIL/uL (4.50-6.20); RED CELL DISTRIBUTION WIDTH 19.9 % (11.0-15.5); WHITE BLOOD COUNT (AUTO) 26.3 K/uL (4.8-10.8)
[2025-05-01 04:00] LABS: ASPARTATE AMINOTRANSFERASE 29.0 U/L (10-37); CREATININE 0.7 mg/dL (0.5-1.3); GLOMERULAR FILTR. RATE CALC 123.0 mL/min (>90); GLUCOSE,RANDOM 122.0 mg/dL (70-105); SODIUM SERUM 137.0 mmol/L (136-145); TOTAL PROTEIN, SERUM 7.2 g/dL (6.0-8.3); UREA NITROGEN, BLOOD 14.0 mg/dL (7-18); VANCOMYCIN TROUGH 12.8 UG/ML (10.0-20.0)
--- NOTE | 2025-05-01 05:25 | HMCIMG ---
EXAM: CR Abdomen, multiple views. CLINICAL HISTORY: Decreased ostomy output. COMPARISON: None provided. FINDINGS: Multiple dilated small bowel loops with multiple air-fluid levels. Large bowel loops are not dilated. Features of small bowel obstruction. Excreted contrast is identified within the urinary bladder. No free air is evident. No abnormal calcification. No aggressive appearing osseous lesion. IMPRESSION: Multiple dilated small bowel loops with multiple air-fluid levels. Large bowel loops are not dilated. The features concerning bowel obstruction or ileus. Recommend a barium follow-through study for further evaluation. /[place]
[2025-05-01] MEDS: VANCOMYCIN 1.75 GM/250 ML BAG 250 ML IV SCH (05:39)
--- NOTE | 2025-05-01 08:30 | NUR ---
THIS NURSE RECEIVED REPORT LATE IN SHIFT AND ABNORMAL KUB RESULTS WERE REPORTED TO KAITLIN KYLE. NEW ORDERS FOR CT ABD/PELVIS W/ ORAL CONTRAST WERE RECEIVED
--- NOTE | 2025-05-01 12:02 | PN ---
35 year old morbidly obese male with a past medical history of Colon mass s/p resection with colostomy placement diagnosed with small bowel obstruction ,severe sepsis and multisystem dysfunction .CT chest/Abdomen/Pelvis revealed Left iliac fossa Spigelian hernia containing small and large bowel with mechanical small bowel obstruction.New right upper lobe spiculated infiltrative mass measuring 5.4 x 4.6 cm infiltrating mediastinal pleura and albumin in the right main pulmonary artery , Bulky mediastinal lymphadenopathy with the largest node measuring 4 cm involving the right paratracheal, prevascular, and subcarinal stations and Multiple bilateral spiculated pulmonary nodules consistent with metastatic disease progression was also seen. Patient with significant failure to thrive. It seems the patient also have infection. White blood count continue to be high at 26.5 K. This patient look like you have possible partial bowel obstruction. PHYSICAL EXAM EYES: Anicteric. Pupils equal and reactive. HENT: No oral thrush seen, moist Oral mucosa NECK: Supple, no JVD or thyromegaly. LUNGS: Good air entry. No rales, no rhonchi. CARDIOVASCULAR: S1, S2 regular. No murmur heard. ABDOMEN: Soft, non tender, bowel sounds present, no organomegaly CENTRAL NERVOUS SYSTEM: Awake, alert, oriented x 3. No focal deficits. SKIN: No rashes, no swelling. LYMPHATICS: No peripheral lymphadenopathy MUSCULOSKELETAL: No joint swelling, erythema or tenderness. EXTREMITIES: No cyanosis or clubbing BACK: No deformity, no pressure ulcer. 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 Failure to thrive 6. Leukocytosis with white blood count 21.5 K 7. Anemia with hemoglobin level 9.9 g/deciliter 8. Possible partial bowel obstruction PLAN 1.Pathology report from rectal mass biopsy - moderately differentiated adenocarcinoma . The new pulmonary nodules and mediastinal lymphadenopathy as per CT scan indicate the possibility of metastatic disease. CEA is [id number]. We will request pulmonary nodule biopsy by IR . 2.Peripheral bloood smear shows microcytic hypochromic anemia consistent with iron deficiency anemia . There is teardrop cell, pelger huet cell and rouleaux formation .Increased number of WBCs observed with neutrophilia and hypersegmented neutrophils suggestive of underlying infection . Band cells observed. Platelet morphology and count within normal limits . 3. This patient with significant failure to thrive. With the patient cannot sit on the side of the bed. I tried to explain to him and to the family that he need to start walking and exercise as a cannot treat him with palliative chemo. 4. Pending Lung nodule biopsy by IR .Plan for genetic phenotyping for targeted therapy if feasible . 5. Physical therapy for evaluation and treatment. 6. This patient with partial bowel obstruction. This patient to receive Reglan 10 mg Q6. Patient also to receive dexamethasone 10 mg IV once daily. If the patient had partial response this patient could be respond. But if the patient have complete obstruction then this patient could start have nausea vomiting 7. Continue conservative treatment for bowel obstruction Vitals/Labs Vital Signs Date Time Temp Pulse Resp B/P (MAP) Pulse Ox O2 Delivery O2 Flow Rate FiO2 05/01/25 08:00 98.2 95 17 125/65 95 BIPAP 05/01/25 07:09 3.0 32 Laboratory Tests 05/01/25 03:28 Medications Current Medications Ketorolac Tromethamine 30 mg ONCE ONCE IM Last administered on 04/19/25at 20:26; Start 04/19/25 at 20:00; Stop 04/19/25 at 20:01; Status DC Acetaminophen 1,000 mg ONCE ONCE PO Last administered on 04/19/25at 20:53; Start 04/19/25 at 20:30; Stop 04/19/25 at 20:34; Status DC Lidocaine 1 each ONCE ONCE TP Last administered on 04/19/25at 20:52; Start 04/19/25 at 20:30; Stop 04/19/25 at 20:34; Status DC Acetaminophen 650 mg Q6H PRN PO Last administered on 04/21/25at 02:20; Start 04/19/25 at 22:00; Stop 05/19/25 at 21:59 Enoxaparin Sodium 40 mg DAILY SQ Last administered on 04/22/25at 08:14; Start 04/20/25 at 09:00; Stop 04/22/25 at 20:00; Status DC Famotidine 20 mg DAILY PO Last administered on 04/30/25at 09:23; Start 04/20/25 at 09:00; Stop 05/20/25 at 08:59 Hydralazine HCl 10 mg Q6H PRN IV; Start 04/19/25 at 22:00; Stop 04/20/25 at 10:52; Status DC Lactated Ringer's 1,000 ml @ 100 mls/hr Q10H IV Last administered on 04/21/25at 12:40; Start 04/19/25 at 22:00; Stop 04/20/25 at 10:52; Status DC Lactulose 20 gm BID PRN PO; Start 04/19/25 at 22:00; Stop 04/29/25 at 19:41; Status DC Morphine Sulfate 4 mg Q4H PRN IVP; Start 04/19/25 at 22:00; Stop 04/20/25 at 10:52; Status DC Ondansetron HCl 4 mg Q6H PRN IV Last administered on 04/24/25at 22:19; Start 04/19/25 at 22:00; Stop 05/19/25 at 21:59 Ceftriaxone Sodium 1 gm Q24H IVPB Last administered on 04/22/25at 10:53; Start 04/20/25 at 10:00; Stop 04/22/25 at 12:41; Status DC Hydralazine HCl 5 mg Q6H PRN IV; Start 04/20/25 at 16:00; Stop 05/20/25 at 15:59 Ketorolac Tromethamine 15 mg Q6H PRN IV Last administered on 04/20/25at 22:08; Start 04/20/25 at 11:00; Stop 04/22/25 at 19:58; Status DC Lidocaine 1 each DAILY TP Last administered on 04/30/25at 09:23; Start 04/21/25 at 09:00; Stop 05/21/25 at 08:59 Magnesium Sulfate 50 ml @ 0 mls/hr PROTOCOL IV Last administered on 04/24/25at 06:11; Start 04/21/25 at 08:30; Stop 05/21/25 at 08:29 Potassium Chloride 40 meq ONCE ONCE PO Last administered on 04/21/25at 12:06; Start 04/21/25 at 08:30; Stop 04/21/25 at 08:31; Status DC Doxycycline Hyclate 250 ml @ 125 mls/hr Q12H IV Last administered on 04/22/25at 08:14; Start 04/21/25 at 08:30; Stop 04/22/25 at 12:41; Status DC Lactated Ringer's 1,000 ml @ 50 mls/hr Q20H IV Last administered on 04/24/25at 02:58; Start 04/21/25 at 12:30; Stop 04/25/25 at 07:47; Status DC Gadoterate Meglumine 10 mmol STK-MED ONCE IV; Start 04/21/25 at 13:44; Stop 04/21/25 at 13:44; Status DC Promethazine HCl 12.5 mg Q8H5 PRN IM Last administered on 04/22/25at 12:25; Start 04/22/25 at 12:30; Stop 05/22/25 at 12:29 Cefepime HCl 2 gm Q8H IVPB Last administered on 04/30/25at 04:27; Start 04/22/25 at 13:00; Stop 04/30/25 at 13:07; Status DC Metronidazole/ Sodium Chloride 100 ml @ 100 mls/hr Q8H6 IVPB Last administered on 05/01/25at 05:11; Start 04/22/25 at 14:00; Stop 05/02/25 at 13:59 Sodium Chloride 500 ml @ 0 mls/hr Q0M STAT IV Last administered on 04/22/25at 14:39; Start 04/22/25 at 13:17; Stop 04/22/25 at 13:22; Status DC Diatrizoate Meglum/ Diatrizoate Sod 30 ml STK-MED ONCE .ROUTE; Start 04/22/25 at 13:38; Stop 04/22/25 at 13:38; Status DC Vancomycin HCl 1 each AD IV; Start 04/22/25 at 15:00; Stop 04/23/25 at 22:23; Status DC Vancomycin HCl 500 ml @ 166.667 mls/hr ONCE ONCE IV Last administered on 04/22/25at 15:10; Start 04/22/25 at 15:00; Stop 04/22/25 at 17:59; Status DC Iohexol 75 ml STK-MED ONCE IV; Start 04/22/25 at 15:29; Stop 04/22/25 at 15:29; Status DC Hydromorphone HCl 0.5 mg Q4H PRN IVP; Start 04/22/25 at 20:00; Stop 04/27/25 at 19:59; Status DC Enoxaparin Sodium 40 mg Q12H SQ Last administered on 04/27/25at 08:10; Start 04/22/25 at 21:00; Stop 04/27/25 at 13:24; Status DC Labetalol HCl 10 mg ONCE ONCE IV Last administered on 04/23/25at 00:10; Start 04/23/25 at 00:00; Stop 04/23/25 at 00:02; Status DC Labetalol HCl 10 mg Q6H PRN IV; Start 04/23/25 at 00:00; Stop 05/23/25 at 00:00 Vancomycin HCl 250 ml @ 125 mls/hr ONCE ONCE IV Last administered on 04/23/25at 17:55; Start 04/23/25 at 18:00; Stop 04/23/25 at 22:23; Status DC Promethazine HCl 25 mg ONCE ONCE IM Last administered on 04/24/25at 00:59; Start 04/24/25 at 01:00; Stop 04/24/25 at 01:01; Status DC Furosemide 20 mg Q8H IV Last administered on 04/25/25at 03:06; Start 04/24/25 at 19:00; Stop 04/25/25 at 03:01; Status DC Dextrose 1,000 ml @ 50 mls/hr Q20H IV Last administered on 04/25/25at 10:38; Start 04/25/25 at 08:00; Stop 04/25/25 at 16:53; Status DC Iron Sucrose 200 mg DAILY IV Last administered on 04/28/25at 09:20; Start 04/26/25 at 09:00; Stop 04/28/25 at 11:00; Status DC Midazolam HCl 2 mg STK-MED ONCE .ROUTE Last administered on 04/26/25at 10:08; Start 04/26/25 at 09:01; Stop 04/26/25 at 09:01; Status DC Fentanyl Citrate 100 mcg STK-MED ONCE .ROUTE Last administered on 04/26/25at 10:06; Start 04/26/25 at 09:01; Stop 04/26/25 at 09:01; Status DC Nystatin 1 APPLICATION BID TP Last administered on 04/30/25at 20:05; Start 04/26/25 at 14:00; Stop 05/26/25 at 13:59 Heparin Sodium (Porcine) *calculation based on ACTUAL B... AD PRN IV; Start 04/27/25 at 14:00; Stop 05/27/25 at 13:59 Heparin Sodium/ Dextrose 250 ml @ 0 mls/hr Q6H IV Last administered on 05/01/25at 02:07; Start 04/27/25 at 14:00; Stop 05/27/25 at 13:59 Heparin Sodium (Porcine) 10,000 unit ONCE ONCE IV Last administered on 04/27/25at 15:53; Start 04/27/25 at 15:30; Stop 04/27/25 at 15:37; Status DC Ipratropium [place] 0.5 MG Q6H PRN IH Last administered on 04/29/25at 11:10; Start 04/28/25 at 19:30; Stop 05/28/25 at 19:29 Furosemide 20 mg Q12H IV Last administered on 05/01/25at 00:34; Start 04/29/25 at 11:00; Stop 05/29/25 at 10:59 Vancomycin HCl 1 each AD IV; Start 04/29/25 at 11:00; Stop 05/13/25 at 10:59 Sodium Chloride 4 ml STK-MED ONCE IH Last administered on 04/29/25at 11:10; Start 04/29/25 at 10:49; Stop 04/29/25 at 10:49; Status DC Vancomycin HCl 500 ml @ 250 mls/hr ONCE ONCE IV Last administered on 04/29/25at 11:08; Start 04/29/25 at 11:00; Stop 04/29/25 at 12:59; Status DC Vancomycin HCl 250 ml @ 125 mls/hr Q8H IV Last administered on 04/30/25at 05:52; Start 04/29/25 at 21:00; Stop 04/30/25 at 14:25; Status DC Sodium Chloride 4 ml STK-MED ONCE IH Last administered on 04/29/25at 19:35; Start 04/29/25 at 18:29; Stop 04/29/25 at 18:29; Status DC Lactulose 20 gm ACHS PRN PO Last administered on 04/30/25at 09:33; Start 04/29/25 at 20:00; Stop 04/30/25 at 13:06; Status DC Sodium Chloride 4 ml STK-MED ONCE IH; Start 04/30/25 at 06:13; Stop 04/30/25 at 06:14; Status DC Ketorolac Tromethamine 15 mg Q6H PRN IM; Start 04/30/25 at 11:30; Stop 05/05/25 at 11:29 Magnesium Citrate 296 ml ONCE ONCE PO Last administered on 04/30/25at 13:19; Start 04/30/25 at 13:00; Stop 04/30/25 at 13:06; Status DC Lactulose 20 gm Q6HWA PRN PO; Start 04/30/25 at 13:00; Stop 05/30/25 at 12:59 Cefepime HCl 2 gm Q8H IVPB Last administered on 05/01/25at 00:34; Start 04/30/25 at 16:00; Stop 05/02/25 at 15:59 Vancomycin HCl 250 ml @ 125 mls/hr Q24H IV Last administered on 05/01/25at 05:39; Start 05/01/25 at 05:00; Stop 05/11/25 at 04:59 JANETTE GEE MD May 01, 2025 12:02
--- NOTE | 2025-05-01 12:22 | PN ---
INFECTIOUS DISEASE FOLLOWUP NOTE DATE OF SERVICE: 04/30/2025 SUBJECTIVE: The patient is seen and examined at bedside. No fever or no chills. constipation. No bleeding tendency. No rashes or itchiness. . PHYSICAL EXAMINATION: VITAL SIGNS: Temperature today is 99. EYES: No icterus. Pupils equal and reactive. HENT: No oral thrush seen. Moist oral mucosa. NECK: Supple. No JVD or thyromegaly. LUNGS: Good air entry. No rales. No rhonchi. CARDIOVASCULAR: S1 and S2, regular. No murmur heard. ABDOMEN: Full, soft, nontender. Bowel sounds present. CENTRAL NERVOUS SYSTEM: The patient is awake, alert and oriented x 3. SKIN: No rashes, no itchiness. LYMPHATIC: No peripheral lymphadenopathy. BACK: No deformity or pressure ulcer. HEMATOLOGIC: No bleeding or petechial lesions seen. MUSCULOSKELETAL: No joint swelling, erythema or tenderness. ASSESSMENT: A 35-year-old male with multiple problems, which include, * Sepsis. * Colon cancer. * Leukocytosis. * Morbid obesity. PLAN: * . * Continue vancomycin. * Continue cefepime. * Continue pain management. * Continue nutritional support. * Continue GI prophylaxis. * Monitor electrolytes. * The patient will be followed up closely. TID: [id number] RECEIPT: [id number]
[2025-05-01] MEDS: MEROPENEM 1GM 1 GM VIAL IVPB SCH (12:27)
[2025-05-01] MEDS ORDERED: PHARMACY COMMUNICATION MISC SCH (12:30)
--- NOTE | 2025-05-01 13:00 | PN ---
[facility] PROGRESS NOTE Date of Service: May 01, 2025 Time of Service: 12:58 SUBJECTIVE: 04/20 the patient has been seen and examined at bedside, case discussed with the RN, no acute events overnight, the time of my visit, the patient is awake, following commands, blood pressure 140/90, afebrile, saturating normal on room air. The patient is morbidly obese, he uses a CPAP at home, currently CPAP at bedside during my visit. WBC 14.0, hemoglobin 10.4, hematocrit 34.8, platelet count of 305. CMP shows sodium 141, potassium 3.5, BUN 70, creatinine 0.9, iron level of 25. X-ray of the knee showing moderate to severe three, power mental right knee osteoarthritis, predominantly in the lateral compartment, with small joint effusion. No acute fracture. Orthopedic physician consultation requested, we will follow input and recommendation. MRI of the right knee requested, however due to morbid obesity, might not be able to do it. Discussed with the mother is at the bedside, all questions answered, in agreement. 04/21 patient has been seen and examined at bedside, case discussed with the RN, no acute events overnight, the time my visit he is awake, following commands, admits mild dry nonproductive cough, spiked fever 102.6. Denied chest pain, shortness shortness for breath, no nausea, no vomiting, no abdominal discomfort. The patient has a colostomy bag, on examination, liquid stool noted. WBC slowly trending down at 12.7, hemoglobin stable 11.6. Magnesium 1.7. Added doxycycline 100 mg IV q.12 hours. Follow serology to include SARS antigen, influenza and rapid strep. We will give magnesium sulfate 2 g IV x1. We will order GI stool panel. Patient is scheduled for MRI to the right knee today, continue lidocaine patch, discussed with the orthopedic physician today, we will follow input and recommendation. 04/22 patient is seen and examined at bedside, discussed with the RN. Patient currently feels nauseated. He admits mild discomfort to the right lower quadrant. BP 135/77, mildly tachycardic at 108, saturating normal on room air. Maximum temperature last 24 hours 102.7. CBC shows a hemoglobin of 11.6, hematocrit 35.7, platelet count of 276, with a platelet count of 23.8. Creatinine 2.1. MRI of the right knee shows tricompartmental osteoarthritis with osteophytosis and diffuse cartilage loss, medial and lateral meniscal with complex degenerative tear involving posterior horns and bodies, meniscal tear severity grade 3, full-thickness chondral defect of the lateral femoral condyle, with a underlying subchondral edema, small reactive joint effusion with mild synovitis. We will upgraded the patient to the PCU, LR at 50 mL/hours, follow repeat CBC, CMP and magnesium level. Continue Rocephin and doxycycline IV. We will order a CT of the abdomen and pelvis without contrast to rule out intra- abdominal acute pathology. Orthopedic input noted and appreciated, patient with bad arthritis, we will finally benefit from knee replacement, however considering his morbid obesity, it is not indicated right now. Recommended con servative approach. Mother at bedside, all questions answered, updated, in agreement with plan of care. 04/23 patient is seen and examined at bedside, discussed with the RN, no acute events overnight, patient upgraded to the ICU yesterday due to sepsis and developing small bowel obstruction. Today the patient is awake, following commands, he is NPO, NG tube to intermittent suction, BP 120/76, heart rate of 111, saturating 96% 3 L nasal cannula, temperature 98.4. WBC of 27.6, hemoglobin 10.6, hematocrit 35.5, platelet count 240, creatinine improved to 1.2. Septic workup with blood culture positive for Staphylococcus epidermidis. Echocardiogram and chest x-ray pending. Patient will remain admitted to the ICU, continue broad-spectrum IV antibiotics, we will follow surgical input recommendation. Continue to follow critical Care and ID input and recommendation. And we will update the mother regarding results of CT of the abdomen pelvis and further plan of care when she is present in the room. CT abdomen and pelvis reviewed, as follows: * Patient is undergoing mass evaluation. * Interval progression since 22 April 2025 with a new right upper lobe spiculated infiltrative mass measuring 5.4 ??? 4.6 cm infiltrating mediastinal pleura and abutting the right main pulmonary artery. * Bulky mediastinal lymphadenopathy with largest node measuring 4 cm, involving right paratracheal, prevascular, precarinal, and subcarinal stations, increased since prior study. * Multiple bilateral spiculated pulmonary nodules (1???2.5 cm), consistent with metastatic disease progression. * Bilateral marked diffuse adrenal enlargement (Right 5.9 ??? 3.6 cm, Left 7.6 ??? 5.4 cm), likely metastatic or hyperplastic. 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 * Degenerative thoracolumbar spondylosis with L4 vertebral body wedging (30???40% height loss), unchanged. * Comparison is made with the exam dated 22 April 2025. Overall findings indicate worsening metastatic disease with new primary and gloria lesions and mechanical bowel obstruction requiring clinical and surgical correlation. Recommendations include oncologic evaluation and PET-CT staging, alongside urgent surgical consultation for bowel obstruction. 04/24 patient is seen and examined at bedside, discussed with the RN, no acute events overnight, patient downgraded from the ICU to the PCU, he remains NPO, NG tube connected to intermittent suction, output in the last 12 hours 200 mL. BP 146/150, heart rate of 101, afebrile, saturating 96-97% on nasal cannula. CBC shows a hemoglobin of 9.9, hematocrit 33.5, platelet count of 235, with WBC of 21.3. CMP with sodium 146, potassium 3.8, BUN of 18, creatinine 0.9, magnesium 1.8. Blood culture 04/21/2025 positive for Staphylococcus epidermidis. Repeat blood cultures 04/23/2025 no growth after 24 hours echocardiogram 04/23/2025 LVEF 50-55%, no left ventricle thrombus, no intracardiac masses, no valvular vegetations. Today chest x-ray pending. Patient will remain admitted to the PCU, NPO, intermittent suction, continue to follow surgical input recommendation, continue broad-spectrum IV antibiotics, follow WBC in a.m.. Follow KUB. I HAVE CONTACTED THE DEPARTMENT OF MEDICAL RECORDS [facility], SPOKE WITH ZENA AT PHONE NUMBER [phone], I HAVE REQUESTED MEDICAL RECORDS. WE WILL FOLLOW UP. 04/25 patient is seen and examined at bedside, case discussed with the RN, no acute events overnight, he remains comfortably in bed, NPO, NG tube to intermittent suction, he is awake, following commands, BP 128/90, area of 101, afebrile. Still feels distended. On examination colostomy bag, enema output noted. KUB pending. KUB from 04/24/2025 showing markedly dilated small bowel loops up to 5.6 cm, consistent with distal small-bowel obstruction, no pneumoperitoneum, pneumatosis intestinalis or portal venous gas. I received medical records from [facility], patient was admitted on 11/19/2024 and discharged 12/08/2024. Areolar in the hospital patient underwent exploratory laparoscopy, laparotomy and creation of transverse loop colostomy 11/28/2024. Patient was evaluated by oncologist Braulio Bell. 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 Per my discussion with the mother, from [facility] the patient was discharged to [facility] to recover and from there he went home. Patient has not had a follow up appointment with the general surgeon or oncologist after that. We have requested Oncology consultation here during this admission. Pathology report from rectal biopsy shows moderately differentiated adenocarcinoma, then new pulmonary nodules and mediastinal lymphadenopathy as per CT scan indicates the possibility of metastatic disease. CEA is [id number]. Req uested pulmonary nodule biopsy by IR. Patient will remain admitted to the PCU, we will continue NG tube to intermittent suction, NPO, TPN, follow surgical input and recommendation. Follow repeat KUB. Mother at bedside, updated, all questions answered. Plan of care discussed with the patient as well, in agreement. 04/26 patient is seen and examined at bedside, discussed with the RN, no acute events overnight, patient is status post CT-guided biopsy of left anterior rib mass, 04/26/2025, tolerated the procedure well. At the time of my visit, he is awake, following commands, denied chest pain, shortness shortness for breath, no nausea, no vomiting. Colostomy bag full of air. No stool or liquid noted. Plan is for the patient to start clear liquid diet and advanced as tolerated. We will follow results of pathology. Continue to follow a.m. labs. Mother at bedside, updated. 04/27 patient is seen and, discussed with the RN, no acute events overnight, alert oriented x3, tolerating clear liquid diet. Passing gas in the colostomy bag but no bowel movement yet. Patient was swollen to the right upper extremity. Doppler showing deep venous thrombosis involving the right axillary vein and brachial veins, nonocclusive thrombosis of the right cephalic vein (superficial venous thrombosis). Correlate clinically for pulmonary embolism risk. Hemoglobin of 10.4, hematocrit 35.9, platelet count of 18.7. Findings of Doppler discussed with the mother, we will start the patient on heparin drip, risks versus benefits discussed, agreed to proceed with the anticoagulation. We will insert midline in the left upper extremity. We will continue to clinically monitor the patient.status post CT-guided biopsy of left anterior rib mass, 04/26/2025, follow up pathology. Continue to follow oncology input and recommendation. 04/28 patient is seen and, discussed with the RN, no acute events overnight, alert oriented x3, remains admitted to the PCU, alert oriented x3 at the time of my visit, tolerating soft diet, passing gas but no BM yet. Doppler showing deep venous thrombosis involving the right axillary vein and brachial veins, nonocclusive thrombosis of the right cephalic vein (superficial venous thr ombosis). Continue heparin drip. Oncology input noted and appreciated. Patient will need Port-A-Cath insertion before discharge home. status post CT- guided biopsy of left anterior rib mass, 04/26/2025, follow up pathology. Continue broad-spectrum IV antibiotics, trend WBC in a.m. per mother at bedside, updated. 04/29/25 The patient continue with Heparin drip given to DVT right axillary vein and brachial vein: will transition to po close to discharged. This patient will need Port-A-Cath insertion before discharge home. This patient need to be clear for Port-A-Cath insertion by infectious disease 04/30/25 patient is lying in bed primary nurse reports no events overnight. Patient we will have IR place Port-A-Cath tomorrow. Patient continues with broad-spectrum antibiotics continues heparin drip transitioned to p.o. post procedure. 05/01 patient is seen and, discussed with the RN, no acute events overnight, alert oriented x3, remains admitted to the PCU, alert oriented x3 at the time of my visit, tolerating soft diet, passing gas but no BM yet. Doppler showing deep venous thrombosis involving the right axillary vein and brachial veins, nonocclusive thrombosis of the right cephalic vein (superficial venous thrombosis). Continue heparin drip. Oncology input noted and appreciated. Patient will need Port-A-Cath insertion before discharge home. IR consultation requested. status post CT-guided biopsy of left anterior rib mass, 04/26/2025, follow up pathology. Continue broad-spectrum IV antibiotics, trend WBC in a.m. per mother at bedside, updated. On physical examination, only small liquid o utput from colostomy bag, no solid stool noted. Discussed with surgery, recommended small-bowel series. Continue to trend WBC in a.m.. Patient may require transfer to higher level of care, we will discuss with case management. REVIEW OF SYSTEMS CONSTITUTIONAL: Denies fevers, chills, or night sweats. No unintentional weight loss reported. NEUROLOGICAL: Denies headache, amaurosis fugax, motor weakness, sensory deficit, vertigo/spinning sensation, gait abnormalities, or tremors. ENT: No hearing loss, otalgia, otorrhea, rhinitis, rhinorrhea, hoarseness, or sore throat. CARDIOVASCULAR: Denies any exertional angina, dyspnea on exertion, orthopnea, paroxysmal nocturnal dyspnea, palpitations, life-threatening arrhythmias, claudication. PULMONARY: Denies any shortness of breath, cough, phlegm/sputum, hemoptysis, pleuritic chest pain. SLEEP: Denies morning headaches, daytime somnolence or napping. Denies difficulty falling asleep, staying asleep, waking from sleep. Denies knowledge of snoring. GASTROINTESTINAL: Denies any type of dysphagia to either liquids or solids. Denies nausea, vomiting, pyrosis, early satiety, abdominal pain, diarrhea, constipation, or changes in stool consistency or caliber. Denies coffee-ground emesis, hematemesis, hematochezia, or melanotic stools. GENITOURINARY: Denies frequency, urgency, nocturia, hematuria or incontinence (Storage/Irritative symptoms.) Low urinary stream, straining to void, urinary intermittency or hesitancy, splitting of the voiding stream, terminal dribbling. ENDOCRINOLOGIC: Denies polyuria, polydipsia, polyphagia or heat/cold intolerances. HEMATOLOGIC: Denies thrombophilia/previous clots, or coagulopathy/bleeding disorders. ONCOLOGIC: Denies personal history of malignancy. DERMATOLOGIC: Denies rashes or pruritus. PSYCHIATRIC: Denies any suicidal or homicidal ideation. Denies hallucinations. PHYSICAL EXAM GENERAL APPEARANCE: Patient awake, following commands, NG tube to intermittent suction. NEUROLOGICAL: Cranial nerves II-XII grossly intact. Motor is 5/5 in bilateral upper and lower extremities proximal to distal. No sensory deficits. HEENT: Face is symmetric. Pupils are equal and reactive. Extraocular movements are intact. NECK: Supple. No JVD. No thyromegaly. No submental, submandibular, pre-/ postauricular, occipital or supraclavicular lymphadenopathy. CHEST: Normal chest expansion. No Telemetry. LUNGS: Absence of any rales, rhonchi or any wheezing. CARDIOVASCULAR: Regular. S1 and S2 normal. No appreciable rubs, murmurs or gallops. ABDOMEN: Liquid output colostomy bag noted. : Deferred. No Doe. EXTREMITIES: Mild swelling to the right knee area, lidocaine patch in place. SKIN: No skin breakdown. Vital Signs (last 8hr) Date Time Temp Pulse Resp B/P (MAP) Pulse Ox O2 Delivery O2 Flow Rate FiO2 05/01/25 12:07 98.2 93 18 115/70 96 Nasal Cannula 3.0 05/01/25 08:00 98.2 95 17 125/65 95 BIPAP 05/01/25 07:09 90 20 N/Cannula Low lpm 3.0 32 LABS: Laboratory: Test 05/01/25 03:28 04/30/25 03:05 Range/Units White Blood Count 26.3 H 4.8-10.8 K/uL Red Blood Count 4.05 L 4.50-6.20 MIL/uL Hemoglobin 9.5 L 14.0-18.0 g/dL Hematocrit 31.5 L 42-54 % Mean Corpuscular Volume 77.8 L 79-99 fL Mean Corpuscular Hemoglobin 23.5 L 27.0-33.0 pg Mean Corpuscular Hemoglobin Concent 30.2 L 32.0-36.0 g/dL Red Cell Distribution Width 19.9 H 11.0-15.5 % Platelet Count 318 130-400 K/uL Mean Platelet Volume 10.3 7.5-10.5 fL Immature Granulocyte % (Auto) 7.2 H 0-1 % Neutrophils (%) (Auto) 74.8 40.0-77.0 % Lymphocytes (%) (Auto) 9.2 L 21.0-51.0 % Monocytes (%) (Auto) 7.6 3.0-13.0 % Eosinophils (%) (Auto) 0.6 0.0-8.0 % Basophils (%) (Auto) 0.6 0.0-5.0 % Neutrophils # (Auto) 19.7 H 1.8-7.7 K/uL Lymphocytes # (Auto) 2.4 1.0-4.8 K/uL Monocytes # (Auto) 2.0 H 0.1-1.0 K/uL Eosinophils # (Auto) 0.16 0.00-0.70 K/uL Basophils # (Auto) 0.16 0.00-0.20 K/uL Absolute Immature Granulocyte (auto 1.88 H 0-1 K/uL Nucleated Red Blood Cells 0.0 0.0-0.19 % White Cell Morphology Comment See comments Activated Partial Thromboplast Time 50.1 H 26.3-35.5 SEC Sodium Level 137 136-145 mmol/L Potassium Level 3.5 3.5-5.1 mmol/L Chloride Level 100 L 101-111 mmol/L Carbon Dioxide Level 32 21-32 mmol/L Blood Urea Nitrogen 14 7-18 mg/dL Creatinine 0.7 0.5-1.3 mg/dL Glomerular Filtration Rate Calc 123 >90 mL/min Random Glucose 122 H 70-105 mg/dL Total Calcium 8.4 L 8.5-10.1 mg/dL Magnesium Level 2.10 1.80-2.40 mg/dL Total Bilirubin 0.8 0.2-1.0 mg/dL Aspartate Amino Transf (AST/SGOT) 29 10-37 U/L Alanine Aminotransferase (ALT/SGPT) 11 L 12-78 U/L Alkaline Phosphatase 150 H 50-136 U/L Total Protein 7.2 6.0-8.3 g/dL Albumin 1.8 L 3.5-5.0 g/dL Vancomycin Level Trough 12.8 # 10.0-20.0 UG/ML Lactic Acid Level 1.6 0.8-2.5 mmol/L Current Medications Medications (Trade) Dose Ordered Sig/Checo Route PRN Reason Start Time Stop Time Status Last Admin Dose Admin Acetaminophen (TYLenol 325MG TAB) 650 mg Q6H PRN PO FEVER/pain 1-3 04/19/25 22:00 05/19/25 21:59 04/21/25 02:20 650 MG Cefepime HCl (MAXipime 2 gm vial) 2 gm Q8H IVPB 04/22/25 13:00 11/2/25 13:07 DC 04/30/25 04:27 2 GM Cefepime HCl (MAXipime 2 gm vial) 2 gm Q8H IVPB 04/30/25 16:00 05/01/25 12:05 DC 05/01/25 00:34 2 GM Ceftriaxone Sodium (ROCEphine 1G INJ) 1 gm Q24H IVPB 04/20/25 10:00 04/22/25 12:41 DC 04/22/25 10:53 1 GM Dextrose 1,000 ml @ 50 mls/hr Q20H IV 04/25/25 08:00 04/25/25 16:53 DC 04/25/25 10:38 100 MLS/HR Doxycycline Hyclate 250 ml @ 125 mls/hr Q12H IV 04/21/25 08:30 04/22/25 12:41 DC 04/22/25 08:14 125 MLS/HR Enoxaparin Sodium (Lovenox) 40 mg DAILY SQ 04/20/25 09:00 04/22/25 20:00 DC 04/22/25 08:14 40 MG Enoxaparin Sodium (Lovenox) 40 mg Q12H SQ 04/22/25 21:00 04/27/25 13:24 DC 04/27/25 08:10 40 MG Famotidine (Pepcid 20mg Tab) 20 mg DAILY PO 04/20/25 09:00 05/20/25 08:59 04/30/25 09:23 20 MG Fluconazole (DiFLUCan 100 mg TAB) 200 mg Q24H PO 05/01/25 12:30 05/31/25 12:29 Furosemide (LASix 20MG VIAL) 20 mg Q12H IV 04/29/25 11:00 05/29/25 10:59 05/01/25 12:30 20 MG Furosemide (LASix 20MG VIAL) 20 mg Q8H IV 04/24/25 19:00 04/25/25 03:01 DC 04/25/25 03:06 20 MG Heparin Sodium (Porcine) (HEParin 5,000 UNIT VIAL) *calculation based on ACTUAL B... AD PRN IV HEPARIN PROTOCOL 04/27/25 14:00 05/27/25 13:59 Heparin Sodium/ Dextrose 250 ml @ 0 mls/hr Q6H IV 04/27/25 14:00 05/27/25 13:59 05/01/25 02:07 18.6 MLS/HR Hydralazine HCl (APRESOLine 20MG INJ) 5 mg Q6H PRN IV For:SBP above 160;DBP above 90 04/20/25 16:00 05/20/25 15:59 Hydralazine HCl (APRESOLine 20MG INJ) 10 mg Q6H PRN IV For:SBP above 160;DBP above 90 04/19/25 22:00 04/20/25 10:52 DC Hydromorphone HCl (DiLAUDid 0.5MG INJ) 0.5 mg Q4H PRN IVP SEVERE PAIN (7-10) 04/22/25 20:00 04/27/25 19:59 DC Ipratropium [place] (AtrovENT UD) 0.5 MG Q6H PRN IH SHORTNESS OF BREATH 04/28/25 19:30 05/28/25 19:29 04/29/25 11:10 0.5 MG Iron Sucrose (VenoFER) 200 mg DAILY IV 04/26/25 09:00 04/28/25 11:00 DC 04/28/25 09:20 200 MG Ketorolac Tromethamine (toRADol) 15 mg Q6H PRN IM MODERATE PAIN (4-6) 04/30/25 11:30 05/05/25 11:29 Ketorolac Tromethamine (toRADol) 15 mg Q6H PRN IV MODERATE PAIN (4-6) 04/20/25 11:00 04/22/25 19:58 DC 04/20/25 22:08 15 MG Labetalol HCl (TRANdate 20MG SYG) 10 mg Q6H PRN IV SUSTAINED HR >120 04/23/25 00:00 05/23/25 00:00 Lactated Ringer's 1,000 ml @ 50 mls/hr Q20H IV 04/21/25 12:30 04/25/25 07:47 DC 04/24/25 02:58 75 MLS/HR Lactated Ringer's 1,000 ml @ 100 mls/hr Q10H IV 04/19/25 22:00 04/20/25 10:52 DC 04/21/25 12:40 100 MLS/HR Lactulose (Constulose 20gm/ 30ml Udcup) 20 gm ACHS PRN PO CONSTIPATION 04/29/25 20:00 04/30/25 13:06 DC 04/30/25 09:33 20 GM Lactulose (Constulose 20gm/ 30ml Udcup) 20 gm BID PRN PO CONSTIPATION 04/19/25 22:00 04/29/25 19:41 DC Lactulose (Constulose 20gm/ 30ml Udcup) 20 gm Q6HWA PRN PO CONSTIPATION 04/30/25 13:00 05/30/25 12:59 Lidocaine (Lidocaine Patch 4%) 1 each DAILY TP 04/21/25 09:00 05/21/25 08:59 05/01/25 12:27 1 EACH Magnesium Sulfate 50 ml @ 0 mls/hr PROTOCOL IV 04/21/25 08:30 05/21/25 08:29 04/24/25 06:11 25 MLS/HR Meropenem (Merrem 1gm) 1 gm Q8H IVPB 05/01/25 12:30 05/02/25 12:29 05/01/25 12:27 1 GM Metronidazole/ Sodium Chloride 100 ml @ 100 mls/hr Q8H6 IVPB 04/22/25 14:00 05/02/25 13:59 05/01/25 05:11 100 MLS/HR Morphine Sulfate (morPHINE 4MG SYG) 4 mg Q4H PRN IVP SEVERE PAIN (7-10) 04/19/25 22:00 04/20/25 10:52 DC Nystatin (NystOP 15 GM POWDER) 1 APPLICATION BID TP 04/26/25 14:00 05/26/25 13:59 05/01/25 12:31 1 APPL Ondansetron HCl (zoFRAN 4MG INJ) 4 mg Q6H PRN IV NAUSEA/VOMITING 04/19/25 22:00 05/19/25 21:59 04/24/25 22:19 4 MG Pharmacy Profile Note (Pharmacy Communication) 1 each ONCE MISC 05/01/25 12:30 05/01/25 12:11 DC Promethazine HCl (Phenergan) 12.5 mg Q8H5 PRN IM NAUSEA/VOMITING 04/22/25 12:30 05/22/25 12:29 04/22/25 12:25 12.5 MG Sodium Chloride 500 ml @ 0 mls/hr Q0M STAT IV 04/22/25 13:17 04/22/25 13:22 DC 04/22/25 14:39 600 MLS/HR Vancomycin HCl 250 ml @ 125 mls/hr Q24H IV 05/01/25 05:00 05/11/25 04:59 05/01/25 05:39 125 MLS/HR Vancomycin HCl 250 ml @ 125 mls/hr Q8H IV 04/29/25 21:00 04/30/25 14:25 DC 04/30/25 05:52 125 MLS/HR Vancomycin HCl (Vancomycin Protocol) 1 each AD IV 04/22/25 15:00 04/23/25 22:23 DC Vancomycin HCl (Vancomycin Protocol) 1 each AD IV 04/29/25 11:00 05/13/25 10:59 DIAGNOSTICS / RADIOLOGY: [ ] ASSESSMENT: Severe sepsis with MODS, resolved Leukocytosis Gram-positive cocci bacteremia Status post left rib biopsy by IR on 04/26/2025 New right upper lobe spiculated infiltrative mass measuring 5.4 x 4.6 cm infiltrating mediastinal pleura and albumin in the right main pulmonary artery Bulky mediastinal lymphadenopathy with the largest node measuring 4 cm involving the right paratracheal, prevascular, and subcarinal stations Multiple bilateral spiculated pulmonary nodules consistent with metastatic disease progression Bilateral marked diffuse adrenal enlargement likely metastatic or hyperplastic Left iliac fossa 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 Right upper extremity DVT involving the axillary and brachial veins PLAN: patient is seen and, discussed with the RN, no acute events overnight, alert oriented x3, remains admitted to the PCU, alert oriented x3 at the time of my visit, tolerating soft diet, passing gas but no BM yet. Doppler showing deep venous thrombosis involving the right axillary vein and brachial veins, nonocclusive thrombosis of the right cephalic vein (superficial venous thrombo sis). Continue heparin drip. Oncology input noted and appreciated. Patient will need Port-A-Cath insertion before discharge home. IR consultation requested. status post CT-guided biopsy of left anterior rib mass, 04/26/2025, follow up pathology. Continue broad-spectrum IV antibiotics, trend WBC in a.m. per mother at bedside, updated. On physical examination, only small liquid output from colostomy bag, no solid stool noted. Discussed with surgery, recommended small-bowel series. Continue to trend WBC in a.m.. Patient may require transfer to higher level of care, we will discuss with case management. NEURO: Minimize central acting medications as possible. Fall Precautions. Well lighted room through the day and minimize interruptions through the night to prevent acute delirium. PULMONARY: Supplemental 02 as needed BiPAP as necessary, for respiratory distress Titrate Fio2 to keep Spo2 > or = 90% DuoNebs and CPT as needed IS hourly while awake for pulmonary hygiene prn Out of bed to chair as tolerated Maintain aspiration precautions at all times CARDIOVASCULAR: Follow hemodynamics. Vital signs per facility protocol GI & NUTRITION: Continue nutritional support Aspirations precautions Prokinetic agents and laxatives as needed KIDNEYS & ELECTROLYTES: Strict monitoring of intake and output Daily weights Avoid nephrotoxic agents Monitor electrolytes and replace as needed Goal urine output of 30mL/hr or 0.5mL/kg/hr Medications to be dosed according to renal function. Avoid contrast if possible ENDOCRINE: Maintain blood glucose between 100-180 at all times. Insulin sliding scale for blood glucose management Hypoglycemia and hyperglycemia protocol in place INFECTIOUS DISEASE: Trend temperature, WBC and procalcitonin level Follow cultures, deescalate antibiotics as soon as possible. Panculture if new onset fever HEMATOLOGY & COAGULATION: Monitor H&H. Keep Hgb > 7 Transfuse 1 unit of PRBC for Hgb < 7 Transfuse 1 pack of platelets of platelets < 20, 000 Watch for any signs and symptoms of bleeding SKIN: Pressure ulcer prevention per facility protocol Specialty mattress as needed ORTHO/REHAB Continue PT/OT PRN: MEDICATIONS Tylenol 650 mg po every 4 hrs for fever zofran 4 mg IV every 6 hrs for n/v Hydralazine 5 mg IV every 4 hrs systolic pressure > 160 bowel regiment: lactulose 20 gm PO BID PRN constipation Supportive measures: Continue GI and DVT prophylaxis Disposition: Pending improvement in clinical condition All questions answered time spent: > 35 min TITA PETERSON MD May 01, 2025 13:00
--- NOTE | 2025-05-01 13:35 | PN ---
[facility] PROGRESS NOTE Date Patient Seen: May 01, 2025 Time of Visit: 13:33 Supervising Physician: Mcak Jha Inpatient Consults: Dr. Nguyen, Dr. Abad, Dr. Henry, Dr. Johnson PROBLEM LIST: Severe sepsis with MODS, resolving Leukocytosis Staphylococcus epidermidis bacteremia, which is a contaminant. 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 deep venous thrombosis involving the right axillary vein and brachial veins INTERVAL HISTORY: Patient seen and examined, all labs and imaging have been reviewed, patient is awake alert and oriented, nursing reports no acute events overnight. Patient is afebrile, vital signs are stable, good sats on nasal cannula 2 L Patient continues on the cefepime, vanc and Flagyl, the last blood cultures positive for from the blood, staph on 04/21 Sputum is pending He continues on duo nebs He is on Lasix 20 mg and we have 520 of urine out in 12 hours Chest x-ray is pending PLAN Following Oncology recommendations, we are pending pathology from the biopsy Patient continues on the heparin drip due to the DVT Supplemental O2, daily chest x-ray Continues on antibiotics, we are following cultures Diuresis, I&Os Neb treatments Sputum pending Total care time spent 58 minutes, this time excludes procedures or educational time REVIEW OF SYSTEMS: 12 point ROS reviewed with patient. Pertinent positives mentioned above. Otherwise negative. PHYSICAL EXAM: GENERAL: alert, weak, awake oriented x 3 HEENT: EOMI, Sclera non icteric, moist mucosa NC NECK: Supple, no JVD, trachea midline LUNGS: Diminished breath sounds bilaterally. No wheezes HEART: Normal rate and rhythm. Normal S1 and S2, without murmurs ABD: morbidly obese Abdomen soft, nontender. Bowel sounds hypoactive EXT: No clubbing cyanosis or edema NEURO: Alert and oriented to person, follows commands Vital Signs (last 8hr) Date Time Temp Pulse Resp B/P (MAP) Pulse Ox O2 Delivery O2 Flow Rate FiO2 05/01/25 12:07 98.2 93 18 115/70 96 Nasal Cannula 3.0 05/01/25 08:00 98.2 95 17 125/65 95 BIPAP 05/01/25 07:09 90 20 N/Cannula Low lpm 3.0 32 LABS: Hematology Labs: Test 05/01/25 03:28 Range/Units White Blood Count 26.3 H 4.8-10.8 K/uL Red Blood Count 4.05 L 4.50-6.20 MIL/uL Hemoglobin 9.5 L 14.0-18.0 g/dL Hematocrit 31.5 L 42-54 % Mean Corpuscular Volume 77.8 L 79-99 fL Mean Corpuscular Hemoglobin 23.5 L 27.0-33.0 pg Mean Corpuscular Hemoglobin Concent 30.2 L 32.0-36.0 g/dL Red Cell Distribution Width 19.9 H 11.0-15.5 % Platelet Count 318 130-400 K/uL Mean Platelet Volume 10.3 7.5-10.5 fL Immature Granulocyte % (Auto) 7.2 H 0-1 % Neutrophils (%) (Auto) 74.8 40.0-77.0 % Lymphocytes (%) (Auto) 9.2 L 21.0-51.0 % Monocytes (%) (Auto) 7.6 3.0-13.0 % Eosinophils (%) (Auto) 0.6 0.0-8.0 % Basophils (%) (Auto) 0.6 0.0-5.0 % Neutrophils # (Auto) 19.7 H 1.8-7.7 K/uL Lymphocytes # (Auto) 2.4 1.0-4.8 K/uL Monocytes # (Auto) 2.0 H 0.1-1.0 K/uL Eosinophils # (Auto) 0.16 0.00-0.70 K/uL Basophils # (Auto) 0.16 0.00-0.20 K/uL Absolute Immature Granulocyte (auto 1.88 H 0-1 K/uL Nucleated Red Blood Cells 0.0 0.0-0.19 % White Cell Morphology Comment See comments Chemistry Labs: Test 05/01/25 03:28 04/30/25 03:05 Range/Units Sodium Level 137 136-145 mmol/L Potassium Level 3.5 3.5-5.1 mmol/L Chloride Level 100 L 101-111 mmol/L Carbon Dioxide Level 32 21-32 mmol/L Blood Urea Nitrogen 14 7-18 mg/dL Creatinine 0.7 0.5-1.3 mg/dL Glomerular Filtration Rate Calc 123 >90 mL/min Random Glucose 122 H 70-105 mg/dL Total Calcium 8.4 L 8.5-10.1 mg/dL Magnesium Level 2.10 1.80-2.40 mg/dL Total Bilirubin 0.8 0.2-1.0 mg/dL Aspartate Amino Transf (AST/SGOT) 29 10-37 U/L Alanine Aminotransferase (ALT/SGPT) 11 L 12-78 U/L Alkaline Phosphatase 150 H 50-136 U/L Total Protein 7.2 6.0-8.3 g/dL Albumin 1.8 L 3.5-5.0 g/dL Lactic Acid Level 1.6 0.8-2.5 mmol/L Coagulation Labs: Test 05/01/25 03:28 Range/Units Activated Partial Thromboplast Time 50.1 H 26.3-35.5 [facility] / RADIOLOGY RESULTS: [ ] PLAN NEURO: Minimize central acting medications as possible. Maintain fall precautions, adequate lighting during the day PULMONARY: Supplemental 02 as needed. Maintain aspiration precautions at all times CARDIOVASCULAR: Follow hemodynamics. Vital signs per facility protocol GI & NUTRITION: Continue with nutritional support. Continue stool softeners and laxatives as needed. KIDNEYS & ELECTROLYTES: Strict monitoring of intake, output and overall fluid balance. Avoid nephrotoxic medications to the extent possible. Medications to be dosed according to renal function. Monitor electrolytes and replace as needed ENDOCRINE: Maintain blood glucose between 100-180 at all times. Hypoglycemia protocol in place INFECTIOUS DISEASE: Trend temperature, WBC and procalcitonin level Follow cultures, deescalate antibiotics as soon as possible. Panculture if new onset fever ONCOLOGY/HEMATOLOGY/COAGULATION: Monitor for s/s of bleeding Monitor hemoglobin, coagulation studies as needed SKIN: Pressure ulcer prevention per facility protocol Specialty mattress ORTHO/REHAB: Continue PT/OT Prophylaxis: Continue GI and DVT prophylaxis Code Status: Full Resuscitation Disposition: Per primary team GABE LEVY PAC May 01, 2025 13:35
--- NOTE | 2025-05-01 14:45 | NUR ---
ON HOLD TODAY PER DR PETERSON. Addendum: 05/01/25 at 1536 by MAYRA LR PT Amended: Links added.
--- NOTE | 2025-05-01 18:49 | HMCIMG ---
EXAM: CR Abdomen, 4 View. CLINICAL HISTORY: RULE OUT OBSTRUCTION VS ILIEUS COMPARISON: Radiograph dated April 30, 2025 FINDINGS: Redemonstrated air-filled dilated loops of small bowel measuring up to 5.[address] imaging to exclude small bowel ileus versus a partial distal small bowel obstruction. IMPRESSION: 1. Dilated small bowel loops up to 5.0 cm, concerning for ileus or partial small bowel obstruction. CT imaging recommended for further evaluation. /[place]
--- NOTE | 2025-05-01 20:20 | NUR ---
RN notified Lyubov Britton NP of patients potassium being at 3.5 with no potassium protocol. labs were reviewed with Lyubov. As per Lyubov, start patient on protocol.
--- NOTE | 2025-05-01 21:45 | PN ---
FOLLOWUP PROGRESS NOTE SUBJECTIVE: A 35-year-old male who has got a prolonged hospital course. The patient initially with acute renal failure, which has improved. The patient with a history of metastatic disease status post lung biopsy, results of which are all pending. The patient is pending placement at the SNF and he is being seen as a followup visit for all the above. REVIEW OF SYSTEMS: GENERAL: The patient is feeling weak and tired. HEENT: No change in vision. No change in hearing. CARDIOVASCULAR: There are no current chest pains or palpitations. PULMONARY: He has chronic shortness of breath. GASTROINTESTINAL: He is tolerating a diet. MUSCULOSKELETAL: Complaints of weakness. PHYSICAL EXAMINATION: VITAL SIGNS: Blood pressure is 125/65, pulse in the 90s. GENERAL: Chronically ill male, obese, young, lying in bed on the medical floor. HEENT: Head is atraumatic. Pupils are equal, round and reactive to light. Oropharynx is without exudate. Nares clear. NECK: There is no JVP. There is no thyromegaly, no mass. CARDIOVASCULAR: Regular. There is no S3, S4, gallop. LUNGS: Coarse with equal thoracic movement. ABDOMEN: Soft, nondistended and nontender. EXTREMITIES: Reveal no clubbing, no cyanosis. NEUROLOGICAL: He is awake. He is alert. LABORATORY DATA: Hemoglobin 9.5, hematocrit 31, white blood cell count 26,000, BUN 14, creatinine 0.7. IMPRESSION: * Acute renal failure. * Metastatic disease. * Sleep apnea. * Hypertension. PLAN: The patient is status post lung biopsy results, which are pending. Workup is ongoing per Oncology. The patient remains on the antibiotics as prescribed. The patient is being seen by case management for placement at the SNF and we will follow closely. TID: [id number] RECEIPT: [id number]
--- NOTE | 2025-05-01 21:54 | PN ---
INFECTIOUS DISEASE PROGRESS NOTE Date of Service: May 01, 2025 SUBJECTIVE: This is a 35-year-old male patient who was seen and examined at bedside in room 220. Patient is awake, alert and oriented x3. Patient had a low-grade fever of 100.0 last night and the WBC trended up to 26.3. We will discontinue cefepime and start patient on Meropenem, fluconazole and vancomycin and we will continue on metronidazole IV. Continues on heparin drip for right upper extremities DVT. Per report patient had a emesis episode earlier today and pending a small bowel series. PHYSICAL EXAM EYES: Anicteric. Pupils equal and reactive. HENT: No oral thrush seen, moist Oral mucosa. NECK: Supple, no JVD or thyromegaly. LUNGS: Good air entry. No rales, no rhonchi. CARDIOVASCULAR: S1, S2 regular. No murmur heard. ABDOMEN: Abdomen is large but Soft, bowel sounds present. Abdominal surgical scar and Left colostomy. CENTRAL NERVOUS SYSTEM: Awake, alert, oriented x 3. SKIN: No rashes, no swelling. LYMPHATICS: No peripheral lymphadenopathy. MUSCULOSKELETAL: Right knee pain. EXTREMITIES: No cyanosis or clubbing. BACK: No deformity, no pressure ulcer. GENITOURINARY: No dysuria or hematuria. Vital Sign (Last 12 Hours) 05/01/25 05/01/25 05/01/25 05/01/25 12:07 16:15 20:00 20:10 Temp 98.2 98.1 98.2 Pulse 93 81 95 94 Resp 18 16 20 22 B/P (MAP) 115/70 113/73 113/69 Pulse Ox 96 96 94 O2 Delivery Nasal Cannula Nasal Cannula Nasal Cannula N/Cannula Low lpm O2 Flow Rate 3.0 3.0 3.0 3.0 FiO2 32 Intake & Output (last 24hrs) 04/30/25 04/30/25 05/01/25 15:00 23:00 07:00 Intake Total 480 ml 174.4 ml 474.4 ml Output Total 1675 ml 250 ml 1720 ml Balance -1195 ml -75.6 ml -1245.6 ml LABS: Laboratory: Test 05/01/25 03:28 04/30/25 03:05 Range/Units White Blood Count 26.3 H 4.8-10.8 K/uL Red Blood Count 4.05 L 4.50-6.20 MIL/uL Hemoglobin 9.5 L 14.0-18.0 g/dL Hematocrit 31.5 L 42-54 % Mean Corpuscular Volume 77.8 L 79-99 fL Mean Corpuscular Hemoglobin 23.5 L 27.0-33.0 pg Mean Corpuscular Hemoglobin Concent 30.2 L 32.0-36.0 g/dL Red Cell Distribution Width 19.9 H 11.0-15.5 % Platelet Count 318 130-400 K/uL Mean Platelet Volume 10.3 7.5-10.5 fL Immature Granulocyte % (Auto) 7.2 H 0-1 % Neutrophils (%) (Auto) 74.8 40.0-77.0 % Lymphocytes (%) (Auto) 9.2 L 21.0-51.0 % Monocytes (%) (Auto) 7.6 3.0-13.0 % Eosinophils (%) (Auto) 0.6 0.0-8.0 % Basophils (%) (Auto) 0.6 0.0-5.0 % Neutrophils # (Auto) 19.7 H 1.8-7.7 K/uL Lymphocytes # (Auto) 2.4 1.0-4.8 K/uL Monocytes # (Auto) 2.0 H 0.1-1.0 K/uL Eosinophils # (Auto) 0.16 0.00-0.70 K/uL Basophils # (Auto) 0.16 0.00-0.20 K/uL Absolute Immature Granulocyte (auto 1.88 H 0-1 K/uL Nucleated Red Blood Cells 0.0 0.0-0.19 % White Cell Morphology Comment See comments Activated Partial Thromboplast Time 50.1 H 26.3-35.5 SEC Sodium Level 137 136-145 mmol/L Potassium Level 3.5 3.5-5.1 mmol/L Chloride Level 100 L 101-111 mmol/L Carbon Dioxide Level 32 21-32 mmol/L Blood Urea Nitrogen 14 7-18 mg/dL Creatinine 0.7 0.5-1.3 mg/dL Glomerular Filtration Rate Calc 123 >90 mL/min Random Glucose 122 H 70-105 mg/dL Total Calcium 8.4 L 8.5-10.1 mg/dL Magnesium Level 2.10 1.80-2.40 mg/dL Total Bilirubin 0.8 0.2-1.0 mg/dL Aspartate Amino Transf (AST/SGOT) 29 10-37 U/L Alanine Aminotransferase (ALT/SGPT) 11 L 12-78 U/L Alkaline Phosphatase 150 H 50-136 U/L Total Protein 7.2 6.0-8.3 g/dL Albumin 1.8 L 3.5-5.0 g/dL Vancomycin Level Trough 12.8 # 10.0-20.0 UG/ML Lactic Acid Level 1.6 0.8-2.5 mmol/L ASSESSMENT: Hypoxic respiratory failure, requiring oxygen support. Staphylococcus epidermidis bacteremia, which is a contaminant. Leukocytosis. Right knee osteoarthritis. Bilateral pulmonary nodules consistent with metastatic disease, s/p lung biopsy. Small-bowel obstruction. Acute renal failure, improving. Morbid obesity. Recent Colorectal mass with resection and colostomy creation. Right upper extremity DVT. PLAN: Discontinue cefepime. Start Meropenem 1 g IV every 8 hours. Start fluconazole 200 mg p.o. Q 24. Start vancomycin IV Q 24 hours. Continue metronidazole. Continues on heparin drip. Continue oxygen support. Continue GI prophylaxis. Continue pain management. Avoid nephrotoxic medications. Pending a small bowel series. This case was reviewed and discussed with my supervising physician Dr. Richards and the above assessment and plan was formulated and agreed upon. ATTESTATION BY PHYSICIAN I have seen and examined the patient. I reviewed the documentation, medical decision making, and treatment plan as noted by the mid-level provider above. I agree with the findings and plan of care. JULIANNA RICHARDS MD, [facility] May 01, 2025 21:54
--- NOTE | 2025-05-01 22:26 | HMCIMG ---
EXAM: CR Chest, 1 View. CLINICAL HISTORY: Decreased ostomy output. COMPARISON: CR ??? Chest 1 View dated 04/30/25, 08:56 EST. FINDINGS: LUNGS: Persistent right paratracheal opacity with inhomogeneous airspace infiltrates in the right lung. Inhomogeneous airspace infiltrates in the left upper lung appear decreased, suggesting interval resolution. No new pulmonary consolidation or mass. PLEURAL SPACES: No pleural effusion or pneumothorax. MEDIASTINUM: Cardiomediastinal silhouette within normal limits. BONES: No acute or aggressive osseous lesion. IMPRESSION: * Persistent right paratracheal opacity with inhomogeneous right lung infiltrates. * Interval resolving left upper lung infiltrates. * No pleural effusion or pneumothorax. Comparison: Compared with prior radiograph dated 04/30/25, right-sided opacities persist while left upper lung infiltrates show partial resolution. /[place]
[2025-05-02] VITALS (12 sets, daily range): BP systolic 104–117; BP diastolic 64–77; PULSE 82–97; RESP 16–25; TEMP 97.6–98.2; O2SAT 93–98
[2025-05-02] MEDS: CLINIMIX-E4.25%AA/D5+LYT2000ML 2,000 ML IV ONE (02:00)
[2025-05-02 03:07] LABS: IMMATURE GRANULOCYTE ABSOLUTE 1.64 K/uL (0-1); NUCLEATED RED BLOOD CELLS 0.0 % (0.0-0.19); PLATELET COUNT (AUTO) 324 K/uL (130-400); RED BLOOD CELL COUNT(AUTO) 3.89 MIL/uL (4.50-6.20); RED CELL DISTRIBUTION WIDTH 20.1 % (11.0-15.5); WHITE BLOOD COUNT (AUTO) 23.4 K/uL (4.8-10.8)
[2025-05-02 03:24] LABS: ASPARTATE AMINOTRANSFERASE 27.0 U/L (10-37); CREATININE 0.7 mg/dL (0.5-1.3); GLOMERULAR FILTR. RATE CALC 123.0 mL/min (>90); GLUCOSE,RANDOM 148.0 mg/dL (70-105); SODIUM SERUM 136.0 mmol/L (136-145); TOTAL PROTEIN, SERUM 7.3 g/dL (6.0-8.3); UREA NITROGEN, BLOOD 16.0 mg/dL (7-18)
[2025-05-02] MEDS: SODIUM CHLORIDE 3% FOR INHALATION 4 ML/AMP VIAL.NEB IH ONE (06:07)
[2025-05-02] MEDS ORDERED: DIATR MEGLU/DIATRIZOATE SODIUM 30 ML BOTTLE ONE (08:03)
--- NOTE | 2025-05-02 10:43 | PN ---
[facility] PROGRESS NOTE Date Patient Seen: May 02, 2025 Time of Visit: 10:34 Supervising Physician: Dr Olvera Inpatient Consults: Dr. Nguyen, Dr. Abad, Dr. Henry, Dr. Johnson PROBLEM LIST: Severe sepsis with MODS, resolving Leukocytosis Staphylococcus epidermidis bacteremia, which is a contaminant. 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 deep venous thrombosis involving the right axillary vein and brachial veins INTERVAL HISTORY: 05/01 - Patient seen and examined, all labs and imaging have been reviewed, patient is awake alert and oriented, nursing reports no acute events overnight. Patient is afebrile, vital signs are stable, good sats on nasal cannula 2 L Patient continues on the cefepime, vanc and Flagyl, the last blood cultures positive for from the blood, staph on 04/21 Sputum is pending He continues on duo nebs He is on Lasix 20 mg and we have 520 of urine out in 12 hours Chest x-ray is pending 05/02 - Patient is seen and examined at the bedside. Pt is laying in bed resting quietly accompanied by his mom and other family members. Patient appears to be weak, deconditioned, and hypoxemic requiring 2 L via N/C. Patient continues utilizing Bipap nightly. Pt reports he uses a Cpap at home nightly. Patient continues on multiple broad spectrum antibiotics which are being managed by Dr Nguyen. Most recent cxray shows resolving left upper lung infiltrate. White count slowly trending down. Biopsy results are still pending. Patient continues on heparin drip for DVT. PT was evaluated by Dr Johnson and depending on Lung nodule biopsy results, will plan for genetic phenotyping for targeted therapy if feasible. Pt had a KUB performed which shows partial small bowel obstruction. As per nursing, surgery team has been made aware. Will continue to follow closely. PLAN Supplemental oxygen as needed Wean off as tolerates Continue Bipap nightly and PRN Continue NEbs as needed Follow pathology results Follow oncology recs Total care time spent 40 minutes, this time excludes procedures or educational time REVIEW OF SYSTEMS: 12 point ROS reviewed with patient. Pertinent positives mentioned above. Otherwise negative. PHYSICAL EXAM: GENERAL: alert, obese, weak, awake oriented x 3 HEENT: EOMI, Sclera non icteric, moist mucosa NC NECK: Supple, no JVD, trachea midline LUNGS: Diminished breath sounds bilaterally. No wheezes HEART: Normal rate and rhythm. Normal S1 and S2, without murmurs ABD: morbidly obese Abdomen soft, nontender. Bowel sounds hypoactive EXT: No clubbing cyanosis or edema NEURO: Alert and oriented to person, follows commands Vital Signs (last 8hr) Date Time Temp Pulse Resp B/P (MAP) Pulse Ox O2 Delivery O2 Flow Rate FiO2 05/02/25 08:09 98.1 88 18 115/73 93 Nasal Cannula 3.0 05/02/25 03:43 94 24 40 05/02/25 02:44 97.7 90 20 104/66 100 CPAP LABS: Hematology Labs: Test 05/02/25 02:44 05/01/25 03:28 Range/Units White Blood Count 23.4 H 4.8-10.8 K/uL Red Blood Count 3.89 L 4.50-6.20 MIL/uL Hemoglobin 9.2 L 14.0-18.0 g/dL Hematocrit 30.4 L 42-54 % Mean Corpuscular Volume 78.1 L 79-99 fL Mean Corpuscular Hemoglobin 23.7 L 27.0-33.0 pg Mean Corpuscular Hemoglobin Concent 30.3 L 32.0-36.0 g/dL Red Cell Distribution Width 20.1 H 11.0-15.5 % Platelet Count 324 130-400 K/uL Mean Platelet Volume 11.0 H 7.5-10.5 fL Immature Granulocyte % (Auto) 7.0 H 0-1 % Neutrophils (%) (Auto) 85.0 H 40.0-77.0 % Lymphocytes (%) (Auto) 5.0 L 21.0-51.0 % Monocytes (%) (Auto) 2.6 L 3.0-13.0 % Eosinophils (%) (Auto) 0.0 0.0-8.0 % Basophils (%) (Auto) 0.4 0.0-5.0 % Neutrophils # (Auto) 19.9 H 1.8-7.7 K/uL Lymphocytes # (Auto) 1.2 1.0-4.8 K/uL Monocytes # (Auto) 0.6 0.1-1.0 K/uL Eosinophils # (Auto) 0.00 0.00-0.70 K/uL Basophils # (Auto) 0.09 0.00-0.20 K/uL Absolute Immature Granulocyte (auto 1.64 H 0-1 K/uL Nucleated Red Blood Cells 0.0 0.0-0.19 % White Cell Morphology Comment See comments Chemistry Labs: Test 05/02/25 02:44 Range/Units Sodium Level 136 136-145 mmol/L Potassium Level 4.1 3.5-5.1 mmol/L Chloride Level 100 L 101-111 mmol/L Carbon Dioxide Level 29 21-32 mmol/L Blood Urea Nitrogen 16 7-18 mg/dL Creatinine 0.7 0.5-1.3 mg/dL Glomerular Filtration Rate Calc 123 >90 mL/min Random Glucose 148 H 70-105 mg/dL Total Calcium 8.5 8.5-10.1 mg/dL Magnesium Level 2.20 1.80-2.40 mg/dL Total Bilirubin 0.7 0.2-1.0 mg/dL Aspartate Amino Transf (AST/SGOT) 27 10-37 U/L Alanine Aminotransferase (ALT/SGPT) 11 L 12-78 U/L Alkaline Phosphatase 140 H 50-136 U/L Total Protein 7.3 6.0-8.3 g/dL Albumin 1.7 L 3.5-5.0 g/dL Coagulation Labs: Test 05/02/25 02:44 Range/Units Activated Partial Thromboplast Time 59.8 H 26.3-35.5 [facility] / RADIOLOGY RESULTS: PATIENT: MARTY BARRON MR#: [id number] : 1990 SEX: M AGE: 35 LOCATION: 2DH ORDER 2300 STATUS: ADM IN REPORT#: [id number] SERVICE 0600 REASON: decreased ostomy output ORDERING PHYSICIAN: SAROJ MAGDALENO PROCEDURE: CXR1VW - CHEST 1VW EXAM: CR Chest, 1 View. CLINICAL HISTORY: Decreased ostomy output. COMPARISON: CR ??? Chest 1 View dated 04/30/25, 08:56 EST. FINDINGS: LUNGS: Persistent right paratracheal opacity with inhomogeneous airspace infiltrates in the right lung. Inhomogeneous airspace infiltrates in the left upper lung appear decreased, suggesting interval resolution. No new pulmonary consolidation or mass. PLEURAL SPACES: No pleural effusion or pneumothorax. MEDIASTINUM: Cardiomediastinal silhouette within normal limits. BONES: No acute or aggressive osseous lesion. IMPRESSION: * Persistent right paratracheal opacity with inhomogeneous right lung infiltrates. * Interval resolving left upper lung infiltrates. * No pleural effusion or pneumothorax. Comparison: Compared with prior radiograph dated 04/30/25, right-sided opacities persist while left upper lung infiltrates show partial resolution. /[place] DICTATED BY: JOSAFAT DALY MD DATE: 05/01/252324 ELECTRONICALLY SIGNED BY: JOSAFAT DALY MD DATE: 05/01/252324 PLAN NEURO: Minimize central acting medications as possible. Maintain fall precautions, adequate lighting during the day PULMONARY: Supplemental 02 as needed. Maintain aspiration precautions at all times CARDIOVASCULAR: Follow hemodynamics. Vital signs per facility protocol GI & NUTRITION: Continue with nutritional support. Continue stool softeners and laxatives as needed. KIDNEYS & ELECTROLYTES: Strict monitoring of intake, output and overall fluid balance. Avoid nephrotoxic medications to the extent possible. Medications to be dosed according to renal function. Monitor electrolytes and replace as needed ENDOCRINE: Maintain blood glucose between 100-180 at all times. Hypoglycemia protocol in place INFECTIOUS DISEASE: Trend temperature, WBC and procalcitonin level Follow cultures, deescalate antibiotics as soon as possible. Panculture if new onset fever ONCOLOGY/HEMATOLOGY/COAGULATION: Monitor for s/s of bleeding Monitor hemoglobin, coagulation studies as needed SKIN: Pressure ulcer prevention per facility protocol Specialty mattress ORTHO/REHAB: Continue PT/OT Prophylaxis: Continue GI and DVT prophylaxis Code Status: Full Resuscitation Disposition: Per primary team ATTESTATION BY PHYSICIAN I reviewed the documentation, medical decision making, and treatment plan as noted by the mid-level provider above. I agree with the findings and plan of care. Andrea Olvera MD, ECTOR N FNP May 02, 2025 10:43
--- NOTE | 2025-05-02 11:16 | PN ---
35 year old morbidly obese male with a past medical history of Colon mass s/p resection with colostomy placement diagnosed with small bowel obstruction ,severe sepsis and multisystem dysfunction .CT chest/Abdomen/Pelvis revealed Left iliac fossa Spigelian hernia containing small and large bowel with mechanical small bowel obstruction.New right upper lobe spiculated infiltrative mass measuring 5.4 x 4.6 cm infiltrating mediastinal pleura and albumin in the right main pulmonary artery , Bulky mediastinal lymphadenopathy with the largest node measuring 4 cm involving the right paratracheal, prevascular, and subcarinal stations and Multiple bilateral spiculated pulmonary nodules consistent with metastatic disease progression was also seen. Patient with significant failure to thrive. It seems the patient also have infection. White blood count continue to be high at 26.5 K. This patient look like you have possible partial bowel obstruction. Patient was started on Reglan and dexamethasone. With the patient actually started having bowel movement. Biopsy from the lung consistent with adenocarcinoma. PHYSICAL EXAM EYES: Anicteric. Pupils equal and reactive. HENT: No oral thrush seen, moist Oral mucosa NECK: Supple, no JVD or thyromegaly. LUNGS: Good air entry. No rales, no rhonchi. CARDIOVASCULAR: S1, S2 regular. No murmur heard. ABDOMEN: Soft, non tender, bowel sounds present, no organomegaly CENTRAL NERVOUS SYSTEM: Awake, alert, oriented x 3. No focal deficits. SKIN: No rashes, no swelling. LYMPHATICS: No peripheral lymphadenopathy MUSCULOSKELETAL: No joint swelling, erythema or tenderness. EXTREMITIES: No cyanosis or clubbing BACK: No deformity, no pressure ulcer. 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 Failure to thrive 6. Leukocytosis with white blood count 21.5 K 7. Anemia with hemoglobin level 9.9 g/deciliter 8. Possible partial bowel obstruction PLAN 1.Pathology report from rectal mass biopsy - moderately differentiated adenocarcinoma . The nodule from the lung with biopsy consistent with adenocarcinoma so this patient have stage IV Colorectal cancer with metastatic disease to the lung 2.Peripheral bloood smear shows microcytic hypochromic anemia consistent with iron deficiency anemia . There is teardrop cell, pelger huet cell and rouleaux formation .Increased number of WBCs observed with neutrophilia and hypersegmented neutrophils suggestive of underlying infection . Band cells observed. Platelet morphology and count within normal limits . 3. This patient with significant failure to thrive. With the patient cannot sit on the side of the bed. I tried to explain to him and to the family that he need to start walking and exercise as a cannot treat him with palliative chemo. 4. This patient with significant failure to thrive. This patient will need case management to help for physical therapy and possibly placement 5. Physical therapy for evaluation and treatment. 6. This patient with partial bowel obstruction. This patient To continue Reglan 10 mg Q6. Patient also to receive dexamethasone 10 mg IV once daily. If the patient had partial response this patient could be respond. But if the patient have complete obstruction then this patient could start have nausea vomiting Vitals/Labs Vital Signs Date Time Temp Pulse Resp B/P (MAP) Pulse Ox O2 Delivery O2 Flow Rate FiO2 05/02/25 08:09 98.1 88 18 115/73 93 Nasal Cannula 3.0 05/02/25 03:43 40 Laboratory Tests 05/02/25 02:44 Medications Current Medications Ketorolac Tromethamine 30 mg ONCE ONCE IM Last administered on 04/19/25at 20:26; Start 04/19/25 at 20:00; Stop 04/19/25 at 20:01; Status DC Acetaminophen 1,000 mg ONCE ONCE PO Last administered on 04/19/25at 20:53; Start 04/19/25 at 20:30; Stop 04/19/25 at 20:34; Status DC Lidocaine 1 each ONCE ONCE TP Last administered on 04/19/25at 20:52; Start 04/19/25 at 20:30; Stop 04/19/25 at 20:34; Status DC Acetaminophen 650 mg Q6H PRN PO Last administered on 04/21/25at 02:20; Start 04/19/25 at 22:00; Stop 05/19/25 at 21:59 Enoxaparin Sodium 40 mg DAILY SQ Last administered on 04/22/25at 08:14; Start 04/20/25 at 09:00; Stop 04/22/25 at 20:00; Status DC Famotidine 20 mg DAILY PO Last administered on 04/30/25at 09:23; Start 04/20/25 at 09:00; Stop 05/20/25 at 08:59 Hydralazine HCl 10 mg Q6H PRN IV; Start 04/19/25 at 22:00; Stop 04/20/25 at 10:52; Status DC Lactated Ringer's 1,000 ml @ 100 mls/hr Q10H IV Last administered on 04/21/25at 12:40; Start 04/19/25 at 22:00; Stop 04/20/25 at 10:52; Status DC Lactulose 20 gm BID PRN PO; Start 04/19/25 at 22:00; Stop 04/29/25 at 19:41; Status DC Morphine Sulfate 4 mg Q4H PRN IVP; Start 04/19/25 at 22:00; Stop 04/20/25 at 10:52; Status DC Ondansetron HCl 4 mg Q6H PRN IV Last administered on 04/24/25at 22:19; Start 04/19/25 at 22:00; Stop 05/19/25 at 21:59 Ceftriaxone Sodium 1 gm Q24H IVPB Last administered on 04/22/25at 10:53; Start 04/20/25 at 10:00; Stop 04/22/25 at 12:41; Status DC Hydralazine HCl 5 mg Q6H PRN IV; Start 04/20/25 at 16:00; Stop 05/20/25 at 15:59 Ketorolac Tromethamine 15 mg Q6H PRN IV Last administered on 04/20/25at 22:08; Start 04/20/25 at 11:00; Stop 04/22/25 at 19:58; Status DC Lidocaine 1 each DAILY TP Last administered on 05/02/25at 09:55; Start 04/21/25 at 09:00; Stop 05/21/25 at 08:59 Magnesium Sulfate 50 ml @ 0 mls/hr PROTOCOL IV Last administered on 04/24/25at 06:11; Start 04/21/25 at 08:30; Stop 05/21/25 at 08:29 Potassium Chloride 40 meq ONCE ONCE PO Last administered on 04/21/25at 12:06; Start 04/21/25 at 08:30; Stop 04/21/25 at 08:31; Status DC Doxycycline Hyclate 250 ml @ 125 mls/hr Q12H IV Last administered on 04/22/25at 08:14; Start 04/21/25 at 08:30; Stop 04/22/25 at 12:41; Status DC Lactated Ringer's 1,000 ml @ 50 mls/hr Q20H IV Last administered on 04/24/25at 02:58; Start 04/21/25 at 12:30; Stop 04/25/25 at 07:47; Status DC Gadoterate Meglumine 10 mmol STK-MED ONCE IV; Start 04/21/25 at 13:44; Stop 04/21/25 at 13:44; Status DC Promethazine HCl 12.5 mg Q8H5 PRN IM Last administered on 04/22/25at 12:25; Start 04/22/25 at 12:30; Stop 05/22/25 at 12:29 Cefepime HCl 2 gm Q8H IVPB Last administered on 04/30/25at 04:27; Start 04/22/25 at 13:00; Stop 04/30/25 at 13:07; Status DC Metronidazole/ Sodium Chloride 100 ml @ 100 mls/hr Q8H6 IVPB Last administered on 05/02/25at 09:55; Start 04/22/25 at 14:00; Stop 05/02/25 at 13:59 Sodium Chloride 500 ml @ 0 mls/hr Q0M STAT IV Last administered on 04/22/25at 14:39; Start 04/22/25 at 13:17; Stop 04/22/25 at 13:22; Status DC Diatrizoate Meglum/ Diatrizoate Sod 30 ml STK-MED ONCE .ROUTE; Start 04/22/25 at 13:38; Stop 04/22/25 at 13:38; Status DC Vancomycin HCl 1 each AD IV; Start 04/22/25 at 15:00; Stop 04/23/25 at 22:23; Status DC Vancomycin HCl 500 ml @ 166.667 mls/hr ONCE ONCE IV Last administered on 04/22/25at 15:10; Start 04/22/25 at 15:00; Stop 04/22/25 at 17:59; Status DC Iohexol 75 ml STK-MED ONCE IV; Start 04/22/25 at 15:29; Stop 04/22/25 at 15:29; Status DC Hydromorphone HCl 0.5 mg Q4H PRN IVP; Start 04/22/25 at 20:00; Stop 04/27/25 at 19:59; Status DC Enoxaparin Sodium 40 mg Q12H SQ Last administered on 04/27/25at 08:10; Start 04/22/25 at 21:00; Stop 04/27/25 at 13:24; Status DC Labetalol HCl 10 mg ONCE ONCE IV Last administered on 04/23/25at 00:10; Start 04/23/25 at 00:00; Stop 04/23/25 at 00:02; Status DC Labetalol HCl 10 mg Q6H PRN IV; Start 04/23/25 at 00:00; Stop 05/23/25 at 00:00 Vancomycin HCl 250 ml @ 125 mls/hr ONCE ONCE IV Last administered on 04/23/25at 17:55; Start 04/23/25 at 18:00; Stop 04/23/25 at 22:23; Status DC Promethazine HCl 25 mg ONCE ONCE IM Last administered on 04/24/25at 00:59; Start 04/24/25 at 01:00; Stop 04/24/25 at 01:01; Status DC Furosemide 20 mg Q8H IV Last administered on 04/25/25at 03:06; Start 04/24/25 at 19:00; Stop 04/25/25 at 03:01; Status DC Dextrose 1,000 ml @ 50 mls/hr Q20H IV Last administered on 04/25/25at 10:38; Start 04/25/25 at 08:00; Stop 04/25/25 at 16:53; Status DC Iron Sucrose 200 mg DAILY IV Last administered on 04/28/25at 09:20; Start 04/26/25 at 09:00; Stop 04/28/25 at 11:00; Status DC Midazolam HCl 2 mg STK-MED ONCE .ROUTE Last administered on 04/26/25at 10:08; Start 04/26/25 at 09:01; Stop 04/26/25 at 09:01; Status DC Fentanyl Citrate 100 mcg STK-MED ONCE .ROUTE Last administered on 04/26/25at 10:06; Start 04/26/25 at 09:01; Stop 04/26/25 at 09:01; Status DC Nystatin 1 APPLICATION BID TP Last administered on 05/02/25at 09:55; Start 04/26/25 at 14:00; Stop 05/26/25 at 13:59 Heparin Sodium (Porcine) *calculation based on ACTUAL B... AD PRN IV; Start 04/27/25 at 14:00; Stop 05/27/25 at 13:59 Heparin Sodium/ Dextrose 250 ml @ 0 mls/hr Q6H IV Last administered on 05/02/25at 04:12; Start 04/27/25 at 14:00; Stop 05/27/25 at 13:59 Heparin Sodium (Porcine) 10,000 unit ONCE ONCE IV Last administered on 04/27/25at 15:53; Start 04/27/25 at 15:30; Stop 04/27/25 at 15:37; Status DC Ipratropium [place] 0.5 MG Q6H PRN IH Last administered on 04/29/25at 11:10; Start 04/28/25 at 19:30; Stop 05/28/25 at 19:29 Furosemide 20 mg Q12H IV Last administered on 05/01/25at 22:27; Start 04/29/25 at 11:00; Stop 05/29/25 at 10:59 Vancomycin HCl 1 each AD IV; Start 04/29/25 at 11:00; Stop 05/13/25 at 10:59 Sodium Chloride 4 ml STK-MED ONCE IH Last administered on 04/29/25at 11:10; Start 04/29/25 at 10:49; Stop 04/29/25 at 10:49; Status DC Vancomycin HCl 500 ml @ 250 mls/hr ONCE ONCE IV Last administered on 04/29/25at 11:08; Start 04/29/25 at 11:00; Stop 04/29/25 at 12:59; Status DC Vancomycin HCl 250 ml @ 125 mls/hr Q8H IV Last administered on 04/30/25at 05:52; Start 04/29/25 at 21:00; Stop 04/30/25 at 14:25; Status DC Sodium Chloride 4 ml STK-MED ONCE IH Last administered on 04/29/25at 19:35; Start 04/29/25 at 18:29; Stop 04/29/25 at 18:29; Status DC Lactulose 20 gm ACHS PRN PO Last administered on 04/30/25at 09:33; Start 04/29/25 at 20:00; Stop 04/30/25 at 13:06; Status DC Sodium Chloride 4 ml STK-MED ONCE IH; Start 04/30/25 at 06:13; Stop 04/30/25 at 06:14; Status DC Ketorolac Tromethamine 15 mg Q6H PRN IM; Start 04/30/25 at 11:30; Stop 05/05/25 at 11:29 Magnesium Citrate 296 ml ONCE ONCE PO Last administered on 04/30/25at 13:19; Start 04/30/25 at 13:00; Stop 04/30/25 at 13:06; Status DC Lactulose 20 gm Q6HWA PRN PO; Start 04/30/25 at 13:00; Stop 05/30/25 at 12:59 Cefepime HCl 2 gm Q8H IVPB Last administered on 05/01/25at 00:34; Start 04/30/25 at 16:00; Stop 05/01/25 at 12:05; Status DC Vancomycin HCl 250 ml @ 125 mls/hr Q24H IV Last administered on 05/02/25at 04:15; Start 05/01/25 at 05:00; Stop 05/11/25 at 04:59 Fluconazole 200 mg Q24H PO; Start 05/01/25 at 12:30; Stop 05/31/25 at 12:29 Pharmacy Profile Note 1 each ONCE MISC; Start 05/01/25 at 12:30; Stop 05/01/25 at 12:11; Status DC Meropenem 1 gm Q8H IVPB Last administered on 05/02/25at 04:15; Start 05/01/25 at 12:30; Stop 05/02/25 at 12:29 Metoclopramide HCl 10 mg Q6H6 IVP Last administered on 05/02/25at 09:54; Start 05/01/25 at 18:00; Stop 05/31/25 at 17:59 Dexamethasone Sodium Phosphate 10 mg Q24H IV Last administered on 05/01/25at 17:22; Start 05/01/25 at 17:00; Stop 05/02/25 at 09:13; Status DC Potassium Chloride 100 ml @ 100 mls/hr PROTOCOL PRN IV Last administered on 05/01/25at 22:29; Start 05/01/25 at 21:00; Stop 05/31/25 at 20:59 Amino Acids/ Electrolytes/ Dextrose 2,000 ml @ 83.333 mls/ hr ONCE ONCE IV Last administered on 05/02/25at 02:00; Start 05/02/25 at 02:00; Stop 05/03/25 at 01:59 Sodium Chloride 4 ml STK-MED ONCE IH; Start 05/02/25 at 06:07; Stop 05/02/25 at 07:04; Status DC Diatrizoate Meglum/ Diatrizoate Sod 30 ml STK-MED ONCE .ROUTE; Start 05/02/25 at 08:03; Stop 05/02/25 at 08:03; Status DC Dexamethasone Sodium Phosphate 10 mg Q24H IV; Start 05/02/25 at 17:00; Stop 05/31/25 at 16:59 JANETTE GEE MD May 02, 2025 11:16
--- NOTE | 2025-05-02 12:23 | PN ---
[facility] PROGRESS NOTE Date of Service: May 02, 2025 Time of Service: 12:22 SUBJECTIVE: 04/20 the patient has been seen and examined at bedside, case discussed with the RN, no acute events overnight, the time of my visit, the patient is awake, following commands, blood pressure 140/90, afebrile, saturating normal on room air. The patient is morbidly obese, he uses a CPAP at home, currently CPAP at bedside during my visit. WBC 14.0, hemoglobin 10.4, hematocrit 34.8, platelet count of 305. CMP shows sodium 141, potassium 3.5, BUN 70, creatinine 0.9, iron level of 25. X-ray of the knee showing moderate to severe three, power mental right knee osteoarthritis, predominantly in the lateral compartment, with small joint effusion. No acute fracture. Orthopedic physician consultation requested, we will follow input and recommendation. MRI of the right knee requested, however due to morbid obesity, might not be able to do it. Discussed with the mother is at the bedside, all questions answered, in agreement. 04/21 patient has been seen and examined at bedside, case discussed with the RN, no acute events overnight, the time my visit he is awake, following commands, admits mild dry nonproductive cough, spiked fever 102.6. Denied chest pain, shortness shortness for breath, no nausea, no vomiting, no abdominal discomfort. The patient has a colostomy bag, on examination, liquid stool noted. WBC slowly trending down at 12.7, hemoglobin stable 11.6. Magnesium 1.7. Added doxycycline 100 mg IV q.12 hours. Follow serology to include SARS antigen, influenza and rapid strep. We will give magnesium sulfate 2 g IV x1. We will order GI stool panel. Patient is scheduled for MRI to the right knee today, continue lidocaine patch, discussed with the orthopedic physician today, we will follow input and recommendation. 04/22 patient is seen and examined at bedside, discussed with the RN. Patient currently feels nauseated. He admits mild discomfort to the right lower quadrant. BP 135/77, mildly tachycardic at 108, saturating normal on room air. Maximum temperature last 24 hours 102.7. CBC shows a hemoglobin of 11.6, hematocrit 35.7, platelet count of 276, with a platelet count of 23.8. Creatinine 2.1. MRI of the right knee shows tricompartmental osteoarthritis with osteophytosis and diffuse cartilage loss, medial and lateral meniscal with complex degenerative tear involving posterior horns and bodies, meniscal tear severity grade 3, full-thickness chondral defect of the lateral femoral condyle, with a underlying subchondral edema, small reactive joint effusion with mild synovitis. We will upgraded the patient to the PCU, LR at 50 mL/hours, follow repeat CBC, CMP and magnesium level. Continue Rocephin and doxycycline IV. We will order a CT of the abdomen and pelvis without contrast to rule out intra- abdominal acute pathology. Orthopedic input noted and appreciated, patient with bad arthritis, we will finally benefit from knee replacement, however considering his morbid obesity, it is not indicated right now. Recommended con servative approach. Mother at bedside, all questions answered, updated, in agreement with plan of care. 04/23 patient is seen and examined at bedside, discussed with the RN, no acute events overnight, patient upgraded to the ICU yesterday due to sepsis and developing small bowel obstruction. Today the patient is awake, following commands, he is NPO, NG tube to intermittent suction, BP 120/76, heart rate of 111, saturating 96% 3 L nasal cannula, temperature 98.4. WBC of 27.6, hemoglobin 10.6, hematocrit 35.5, platelet count 240, creatinine improved to 1.2. Septic workup with blood culture positive for Staphylococcus epidermidis. Echocardiogram and chest x-ray pending. Patient will remain admitted to the ICU, continue broad-spectrum IV antibiotics, we will follow surgical input recommendation. Continue to follow critical Care and ID input and recommendation. And we will update the mother regarding results of CT of the abdomen pelvis and further plan of care when she is present in the room. CT abdomen and pelvis reviewed, as follows: * Patient is undergoing mass evaluation. * Interval progression since 22 April 2025 with a new right upper lobe spiculated infiltrative mass measuring 5.4 ??? 4.6 cm infiltrating mediastinal pleura and abutting the right main pulmonary artery. * Bulky mediastinal lymphadenopathy with largest node measuring 4 cm, involving right paratracheal, prevascular, precarinal, and subcarinal stations, increased since prior study. * Multiple bilateral spiculated pulmonary nodules (1???2.5 cm), consistent with metastatic disease progression. * Bilateral marked diffuse adrenal enlargement (Right 5.9 ??? 3.6 cm, Left 7.6 ??? 5.4 cm), likely metastatic or hyperplastic. 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 * Degenerative thoracolumbar spondylosis with L4 vertebral body wedging (30???40% height loss), unchanged. * Comparison is made with the exam dated 22 April 2025. Overall findings indicate worsening metastatic disease with new primary and gloria lesions and mechanical bowel obstruction requiring clinical and surgical correlation. Recommendations include oncologic evaluation and PET-CT staging, alongside urgent surgical consultation for bowel obstruction. 04/24 patient is seen and examined at bedside, discussed with the RN, no acute events overnight, patient downgraded from the ICU to the PCU, he remains NPO, NG tube connected to intermittent suction, output in the last 12 hours 200 mL. BP 146/150, heart rate of 101, afebrile, saturating 96-97% on nasal cannula. CBC shows a hemoglobin of 9.9, hematocrit 33.5, platelet count of 235, with WBC of 21.3. CMP with sodium 146, potassium 3.8, BUN of 18, creatinine 0.9, magnesium 1.8. Blood culture 04/21/2025 positive for Staphylococcus epidermidis. Repeat blood cultures 04/23/2025 no growth after 24 hours echocardiogram 04/23/2025 LVEF 50-55%, no left ventricle thrombus, no intracardiac masses, no valvular vegetations. Today chest x-ray pending. Patient will remain admitted to the PCU, NPO, intermittent suction, continue to follow surgical input recommendation, continue broad-spectrum IV antibiotics, follow WBC in a.m.. Follow KUB. I HAVE CONTACTED THE DEPARTMENT OF MEDICAL RECORDS ARTERIO[facility] THE [facility], SPOKE WITH ZENA AT PHONE NUMBER [phone], I HAVE REQUESTED MEDICAL RECORDS. WE WILL FOLLOW UP. 04/25 patient is seen and examined at bedside, case discussed with the RN, no acute events overnight, he remains comfortably in bed, NPO, NG tube to intermittent suction, he is awake, following commands, BP 128/90, area of 101, afebrile. Still feels distended. On examination colostomy bag, enema output noted. KUB pending. KUB from 04/24/2025 showing markedly dilated small bowel loops up to 5.6 cm, consistent with distal small-bowel obstruction, no pneumoperitoneum, pneumatosis intestinalis or portal venous gas. I received medical records from [facility], patient was admitted on 11/19/2024 and discharged 12/08/2024. Areolar in the hospital patient underwent exploratory laparoscopy, laparotomy and creation of transverse loop colostomy 11/28/2024. Patient was evaluated by oncologist Braulio Bell. 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 Per my discussion with the mother, from [facility] patient was discharged to [facility] to recover and from there he went home. Patient has not had a follow up appointment with the general surgeon or oncologist after that. We have requested Oncology consultation here during this admission. Pathology report from rectal biopsy shows moderately differentiated adenocarcinoma, then new pulmonary nodules and mediastinal lymphadenopathy as per CT scan indicates the possibility of metastatic disease. CEA is [id number]. Req uested pulmonary nodule biopsy by IR. Patient will remain admitted to the PCU, we will continue NG tube to intermittent suction, NPO, TPN, follow surgical input and recommendation. Follow repeat KUB. Mother at bedside, updated, all questions answered. Plan of care discussed with the patient as well, in agreement. 04/26 patient is seen and examined at bedside, discussed with the RN, no acute events overnight, patient is status post CT-guided biopsy of left anterior rib mass, 04/26/2025, tolerated the procedure well. At the time of my visit, he is awake, following commands, denied chest pain, shortness shortness for breath, no nausea, no vomiting. Colostomy bag full of air. No stool or liquid noted. Plan is for the patient to start clear liquid diet and advanced as tolerated. We will follow results of pathology. Continue to follow a.m. labs. Mother at bedside, updated. 04/27 patient is seen and, discussed with the RN, no acute events overnight, alert oriented x3, tolerating clear liquid diet. Passing gas in the colostomy bag but no bowel movement yet. Patient was swollen to the right upper extremity. Doppler showing deep venous thrombosis involving the right axillary vein and brachial veins, nonocclusive thrombosis of the right cephalic vein (superficial venous thrombosis). Correlate clinically for pulmonary embolism risk. Hemoglobin of 10.4, hematocrit 35.9, platelet count of 18.7. Findings of Doppler discussed with the mother, we will start the patient on heparin drip, risks versus benefits discussed, agreed to proceed with the anticoagulation. We will insert midline in the left upper extremity. We will continue to clinically monitor the patient.status post CT-guided biopsy of left anterior rib mass, 04/26/2025, follow up pathology. Continue to follow oncology input and recommendation. 04/28 patient is seen and, discussed with the RN, no acute events overnight, alert oriented x3, remains admitted to the PCU, alert oriented x3 at the time of my visit, tolerating soft diet, passing gas but no BM yet. Doppler showing deep venous thrombosis involving the right axillary vein and brachial veins, nonocclusive thrombosis of the right cephalic vein (superficial venous thr ombosis). Continue heparin drip. Oncology input noted and appreciated. Patient will need Port-A-Cath insertion before discharge home. status post CT- guided biopsy of left anterior rib mass, 04/26/2025, follow up pathology. Continue broad-spectrum IV antibiotics, trend WBC in a.m. per mother at bedside, updated. 04/29/25 The patient continue with Heparin drip given to DVT right axillary vein and brachial vein: will transition to po close to discharged. This patient will need Port-A-Cath insertion before discharge home. This patient need to be clear for Port-A-Cath insertion by infectious disease 04/30/25 patient is lying in bed primary nurse reports no events overnight. Patient we will have IR place Port-A-Cath tomorrow. Patient continues with broad-spectrum antibiotics continues heparin drip transitioned to p.o. post procedure. 05/01 patient is seen and, discussed with the RN, no acute events overnight, alert oriented x3, remains admitted to the PCU, alert oriented x3 at the time of my visit, tolerating soft diet, passing gas but no BM yet. Doppler showing deep venous thrombosis involving the right axillary vein and brachial veins, nonocclusive thrombosis of the right cephalic vein (superficial venous thrombosis). Continue heparin drip. Oncology input noted and appreciated. Patient will need Port-A-Cath insertion before discharge home. IR consultation requested. status post CT-guided biopsy of left anterior rib mass, 04/26/2025, follow up pathology. Continue broad-spectrum IV antibiotics, trend WBC in a.m. per mother at bedside, updated. On physical examination, only small liquid o utput from colostomy bag, no solid stool noted. Discussed with surgery, recommended small-bowel series. Continue to trend WBC in a.m.. Patient may require transfer to higher level of care, we will discuss with case management. 05/02 patient is seen and, discussed with the RN, no acute events overnight, alert oriented x3, remains admitted to the PCU, alert oriented x3 at the time of my visit, tolerating soft diet, passing gas. Colostomy bag on exam looks more full compared to yesterday however not solid stool yet. Discussed with the surgery yesterday, recommended small-bowel series, likely to be completed today, we will follow up. REVIEW OF SYSTEMS CONSTITUTIONAL: Denies fevers, chills, or night sweats. No unintentional weight loss reported. NEUROLOGICAL: Denies headache, amaurosis fugax, motor weakness, sensory deficit, vertigo/spinning sensation, gait abnormalities, or tremors. ENT: No hearing loss, otalgia, otorrhea, rhinitis, rhinorrhea, hoarseness, or sore throat. CARDIOVASCULAR: Denies any exertional angina, dyspnea on exertion, orthopnea, paroxysmal nocturnal dyspnea, palpitations, life-threatening arrhythmias, claudication. PULMONARY: Denies any shortness of breath, cough, phlegm/sputum, hemoptysis, pleuritic chest pain. SLEEP: Denies morning headaches, daytime somnolence or napping. Denies difficulty falling asleep, staying asleep, waking from sleep. Denies knowledge of snoring. GASTROINTESTINAL: Denies any type of dysphagia to either liquids or solids. Denies nausea, vomiting, pyrosis, early satiety, abdominal pain, diarrhea, constipation, or changes in stool consistency or caliber. Denies coffee-ground emesis, hematemesis, hematochezia, or melanotic stools. GENITOURINARY: Denies frequency, urgency, nocturia, hematuria or incontinence (Storage/Irritative symptoms.) Low urinary stream, straining to void, urinary intermittency or hesitancy, splitting of the voiding stream, terminal dribbling. ENDOCRINOLOGIC: Denies polyuria, polydipsia, polyphagia or heat/cold intolerances. HEMATOLOGIC: Denies thrombophilia/previous clots, or coagulopathy/bleeding disorders. ONCOLOGIC: Denies personal history of malignancy. DERMATOLOGIC: Denies rashes or pruritus. PSYCHIATRIC: Denies any suicidal or homicidal ideation. Denies hallucinations. PHYSICAL EXAM GENERAL APPEARANCE: Patient awake, following commands, NG tube to intermittent suction. NEUROLOGICAL: Cranial nerves II-XII grossly intact. Motor is 5/5 in bilateral upper and lower extremities proximal to distal. No sensory deficits. HEENT: Face is symmetric. Pupils are equal and reactive. Extraocular movements are intact. NECK: Supple. No JVD. No thyromegaly. No submental, submandibular, pre- /postauricular, occipital or supraclavicular lymphadenopathy. CHEST: Normal chest expansion. No Telemetry. LUNGS: Absence of any rales, rhonchi or any wheezing. CARDIOVASCULAR: Regular. S1 and S2 normal. No appreciable rubs, murmurs or gallops. ABDOMEN: Liquid output colostomy bag noted. : Deferred. No Doe. EXTREMITIES: Mild swelling to the right knee area, lidocaine patch in place. SKIN: No skin breakdown. Vital Signs (last 8hr) Date Time Temp Pulse Resp B/P (MAP) Pulse Ox O2 Delivery O2 Flow Rate FiO2 05/02/25 11:44 98.2 90 16 117/77 97 Nasal Cannula 3.0 05/02/25 08:09 98.1 88 18 115/73 93 Nasal Cannula 3.0 LABS: Laboratory: Test 05/02/25 02:44 05/01/25 03:28 Range/Units White Blood Count 23.4 H 4.8-10.8 K/uL Red Blood Count 3.89 L 4.50-6.20 MIL/uL Hemoglobin 9.2 L 14.0-18.0 g/dL Hematocrit 30.4 L 42-54 % Mean Corpuscular Volume 78.1 L 79-99 fL Mean Corpuscular Hemoglobin 23.7 L 27.0-33.0 pg Mean Corpuscular Hemoglobin Concent 30.3 L 32.0-36.0 g/dL Red Cell Distribution Width 20.1 H 11.0-15.5 % Platelet Count 324 130-400 K/uL Mean Platelet Volume 11.0 H 7.5-10.5 fL Immature Granulocyte % (Auto) 7.0 H 0-1 % Neutrophils (%) (Auto) 85.0 H 40.0-77.0 % Lymphocytes (%) (Auto) 5.0 L 21.0-51.0 % Monocytes (%) (Auto) 2.6 L 3.0-13.0 % Eosinophils (%) (Auto) 0.0 0.0-8.0 % Basophils (%) (Auto) 0.4 0.0-5.0 % Neutrophils # (Auto) 19.9 H 1.8-7.7 K/uL Lymphocytes # (Auto) 1.2 1.0-4.8 K/uL Monocytes # (Auto) 0.6 0.1-1.0 K/uL Eosinophils # (Auto) 0.00 0.00-0.70 K/uL Basophils # (Auto) 0.09 0.00-0.20 K/uL Absolute Immature Granulocyte (auto 1.64 H 0-1 K/uL Nucleated Red Blood Cells 0.0 0.0-0.19 % Activated Partial Thromboplast Time 59.8 H 26.3-35.5 SEC Sodium Level 136 136-145 mmol/L Potassium Level 4.1 3.5-5.1 mmol/L Chloride Level 100 L 101-111 mmol/L Carbon Dioxide Level 29 21-32 mmol/L Blood Urea Nitrogen 16 7-18 mg/dL Creatinine 0.7 0.5-1.3 mg/dL Glomerular Filtration Rate Calc 123 >90 mL/min Random Glucose 148 H 70-105 mg/dL Total Calcium 8.5 8.5-10.1 mg/dL Magnesium Level 2.20 1.80-2.40 mg/dL Total Bilirubin 0.7 0.2-1.0 mg/dL Aspartate Amino Transf (AST/SGOT) 27 10-37 U/L Alanine Aminotransferase (ALT/SGPT) 11 L 12-78 U/L Alkaline Phosphatase 140 H 50-136 U/L Total Protein 7.3 6.0-8.3 g/dL Albumin 1.7 L 3.5-5.0 g/dL White Cell Morphology Comment See comments Vancomycin Level Trough 12.8 # 10.0-20.0 UG/ML Current Medications Medications (Trade) Dose Ordered Sig/Checo Route PRN Reason Start Time Stop Time Status Last Admin Dose Admin Acetaminophen (TYLenol 325MG TAB) 650 mg Q6H PRN PO FEVER/pain 1-3 04/19/25 22:00 05/19/25 21:59 04/21/25 02:20 650 MG Cefepime HCl (MAXipime 2 gm vial) 2 gm Q8H IVPB 04/22/25 13:00 04/30/25 13:07 DC 04/30/25 04:27 2 GM Cefepime HCl (MAXipime 2 gm vial) 2 gm Q8H IVPB 04/30/25 16:00 05/01/25 12:05 DC 05/01/25 00:34 2 GM Ceftriaxone Sodium (ROCEphine 1G INJ) 1 gm Q24H IVPB 04/20/25 10:00 04/22/25 12:41 DC 04/22/25 10:53 1 GM Dexamethasone Sodium Phosphate (dexaMETHasone 4MG/ML 1ML VIAL) 10 mg Q24H IV 05/01/25 17:00 05/02/25 09:13 DC 05/01/25 17:22 10 MG Dexamethasone Sodium Phosphate (dexaMETHasone 10MG/ML 1ML VIAL) 10 mg Q24H IV 05/02/25 17:00 05/31/25 16:59 Dextrose 1,000 ml @ 50 mls/hr Q20H IV 04/25/25 08:00 04/25/25 16:53 DC 04/25/25 10:38 100 MLS/HR Doxycycline Hyclate 250 ml @ 125 mls/hr Q12H IV 04/21/25 08:30 04/22/25 12:41 DC 04/22/25 08:14 125 MLS/HR Enoxaparin Sodium (Lovenox) 40 mg DAILY SQ 04/20/25 09:00 04/22/25 20:00 DC 04/22/25 08:14 40 MG Enoxaparin Sodium (Lovenox) 40 mg Q12H SQ 04/22/25 21:00 04/27/25 13:24 DC 04/27/25 08:10 40 MG Famotidine (Pepcid 20mg Vial) 20 mg BID IV 05/02/25 21:00 06/01/25 20:59 Famotidine (Pepcid 20mg Tab) 20 mg DAILY PO 04/20/25 09:00 05/02/25 12:03 DC 04/30/25 09:23 20 MG Fluconazole (DiFLUCan 100 mg TAB) 200 mg Q24H PO 05/01/25 12:30 05/02/25 12:03 DC Fluconazole/ Sodium Chloride (DiFLUCan 200 MG/ NS 100 ML) 200 mg Q24H IVPB 05/02/25 12:00 06/01/25 11:59 05/02/25 12:18 200 MG Furosemide (LASix 20MG VIAL) 20 mg Q12H IV 04/29/25 11:00 05/29/25 10:59 05/02/25 11:33 20 MG Furosemide (LASix 20MG VIAL) 20 mg Q8H IV 04/24/25 19:00 04/25/25 03:01 DC 04/25/25 03:06 20 MG Heparin Sodium (Porcine) (HEParin 5,000 UNIT VIAL) *calculation based on ACTUAL B... AD PRN IV HEPARIN PROTOCOL 04/27/25 14:00 05/27/25 13:59 Heparin Sodium/ Dextrose 250 ml @ 0 mls/hr Q6H IV 04/27/25 14:00 05/27/25 13:59 05/02/25 04:12 11 MLS/HR Hydralazine HCl (APRESOLine 20MG INJ) 5 mg Q6H PRN IV For:SBP above 160;DBP above 90 04/20/25 16:00 05/20/25 15:59 Hydralazine HCl (APRESOLine 20MG INJ) 10 mg Q6H PRN IV For:SBP above 160;DBP above 90 04/19/25 22:00 04/20/25 10:52 DC Hydromorphone HCl (DiLAUDid 0.5MG INJ) 0.5 mg Q4H PRN IVP SEVERE PAIN (7-10) 04/22/25 20:00 04/27/25 19:59 DC Ipratropium Pepperell (AtrovENT UD) 0.5 MG Q6H PRN IH SHORTNESS OF BREATH 04/28/25 19:30 05/28/25 19:29 04/29/25 11:10 0.5 MG Iron Sucrose (VenoFER) 200 mg DAILY IV 04/26/25 09:00 04/28/25 11:00 DC 04/28/25 09:20 200 MG Ketorolac Tromethamine (toRADol) 15 mg Q6H PRN IM MODERATE PAIN (4-6) 04/30/25 11:30 05/05/25 11:29 Ketorolac Tromethamine (toRADol) 15 mg Q6H PRN IV MODERATE PAIN (4-6) 04/20/25 11:00 04/22/25 19:58 DC 04/20/25 22:08 15 MG Labetalol HCl (TRANdate 20MG SYG) 10 mg Q6H PRN IV SUSTAINED HR >120 04/23/25 00:00 05/23/25 00:00 Lactated Ringer's 1,000 ml @ 50 mls/hr Q20H IV 04/21/25 12:30 04/25/25 07:47 DC 04/24/25 02:58 75 MLS/HR Lactated Ringer's 1,000 ml @ 100 mls/hr Q10H IV 04/19/25 22:00 04/20/25 10:52 DC 04/21/25 12:40 100 MLS/HR Lactulose (Constulose 20gm/ 30ml Udcup) 20 gm ACHS PRN PO CONSTIPATION 04/29/25 20:00 04/30/25 13:06 DC 04/30/25 09:33 20 GM Lactulose (Constulose 20gm/ 30ml Udcup) 20 gm BID PRN PO CONSTIPATION 04/19/25 22:00 04/29/25 19:41 DC Lactulose (Constulose 20gm/ 30ml Udcup) 20 gm Q6HWA PRN PO CONSTIPATION 04/30/25 13:00 05/30/25 12:59 Lidocaine (Lidocaine Patch 4%) 1 each DAILY TP 04/21/25 09:00 05/21/25 08:59 05/02/25 09:55 1 EACH Magnesium Sulfate 50 ml @ 0 mls/hr PROTOCOL IV 04/21/25 08:30 05/21/25 08:29 04/24/25 06:11 25 MLS/HR Meropenem (Merrem 1gm) 1 gm Q8H IVPB 05/01/25 12:30 05/02/25 12:29 05/02/25 04:15 1 GM Metoclopramide HCl (regLAN 10MG IV) 10 mg Q6H6 IVP 05/01/25 18:00 05/31/25 17:59 05/02/25 09:54 10 MG Metronidazole/ Sodium Chloride 100 ml @ 100 mls/hr Q8H6 IVPB 04/22/25 14:00 05/02/25 13:59 05/02/25 09:55 100 MLS/HR Morphine Sulfate (morPHINE 4MG SYG) 4 mg Q4H PRN IVP SEVERE PAIN (7-10) 04/19/25 22:00 04/20/25 10:52 DC Nystatin (NystOP 15 GM POWDER) 1 APPLICATION BID TP 04/26/25 14:00 05/26/25 13:59 05/02/25 09:55 1 APPL Ondansetron HCl (zoFRAN 4MG INJ) 4 mg Q6H PRN IV NAUSEA/VOMITING 04/19/25 22:00 05/19/25 21:59 04/24/25 22:19 4 MG Pharmacy Profile Note (Pharmacy Communication) 1 each ONCE MISC 05/01/25 12:30 05/01/25 12:11 DC Potassium Chloride 100 ml @ 100 mls/hr PROTOCOL PRN IV hypokalemia 05/01/25 21:00 05/31/25 20:59 05/01/25 22:29 100 MLS/HR Promethazine HCl (Phenergan) 12.5 mg Q8H5 PRN IM NAUSEA/VOMITING 04/22/25 12:30 05/22/25 12:29 04/22/25 12:25 12.5 MG Sodium Chloride 500 ml @ 0 mls/hr Q0M STAT IV 04/22/25 13:17 04/22/25 13:22 DC 04/22/25 14:39 600 MLS/HR Vancomycin HCl 250 ml @ 125 mls/hr Q24H IV 05/01/25 05:00 05/11/25 04:59 05/02/25 04:15 125 MLS/HR Vancomycin HCl 250 ml @ 125 mls/hr Q8H IV 04/29/25 21:00 04/30/25 14:25 DC 04/30/25 05:52 125 MLS/HR Vancomycin HCl (Vancomycin Protocol) 1 each AD IV 04/22/25 15:00 04/23/25 22:23 DC Vancomycin HCl (Vancomycin Protocol) 1 each AD IV 04/29/25 11:00 05/13/25 10:59 DIAGNOSTICS / RADIOLOGY: [ ] ASSESSMENT: Severe sepsis with MODS, resolved Leukocytosis Gram-positive cocci bacteremia Status post left rib biopsy by IR on 04/26/2025 New right upper lobe spiculated infiltrative mass measuring 5.4 x 4.6 cm infiltrating mediastinal pleura and albumin in the right main pulmonary artery Bulky mediastinal lymphadenopathy with the largest node measuring 4 cm involving the right paratracheal, prevascular, and subcarinal stations Multiple bilateral spiculated pulmonary nodules consistent with metastatic disease progression Bilateral marked diffuse adrenal enlargement likely metastatic or hyperplastic Left iliac fossa 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 Right upper extremity DVT involving the axillary and brachial veins PLAN: patient is seen and, discussed with the RN, no acute events overnight, alert oriented x3, remains admitted to the PCU, alert oriented x3 at the time of my visit, tolerating soft diet, passing gas. Colostomy bag on exam looks more full compared to yesterday however not solid stool yet. Discussed with the surgery yesterday, recommended small-bowel series, likely to be completed today, we will follow up. NEURO: Minimize central acting medications as possible. Fall Precautions. Well lighted room through the day and minimize interruptions through the night to prevent acute delirium. PULMONARY: Supplemental 02 as needed BiPAP as necessary, for respiratory distress Titrate Fio2 to keep Spo2 > or = 90% DuoNebs and CPT as needed IS hourly while awake for pulmonary hygiene prn Out of bed to chair as tolerated Maintain aspiration precautions at all times CARDIOVASCULAR: Follow hemodynamics. Vital signs per facility protocol GI & NUTRITION: Continue nutritional support Aspirations precautions Prokinetic agents and laxatives as needed KIDNEYS & ELECTROLYTES: Strict monitoring of intake and output Daily weights Avoid nephrotoxic agents Monitor electrolytes and replace as needed Goal urine output of 30mL/hr or 0.5mL/kg/hr Medications to be dosed according to renal function. Avoid contrast if possible ENDOCRINE: Maintain blood glucose between 100-180 at all times. Insulin sliding scale for blood glucose management Hypoglycemia and hyperglycemia protocol in place INFECTIOUS DISEASE: Trend temperature, WBC and procalcitonin level Follow cultures, deescalate antibiotics as soon as possible. Panculture if new onset fever HEMATOLOGY & COAGULATION: Monitor H&H. Keep Hgb > 7 Transfuse 1 unit of PRBC for Hgb < 7 Transfuse 1 pack of platelets of platelets < 20, 000 Watch for any signs and symptoms of bleeding SKIN: Pressure ulcer prevention per facility protocol Specialty mattress as needed ORTHO/REHAB Continue PT/OT PRN: MEDICATIONS Tylenol 650 mg po every 4 hrs for fever zofran 4 mg IV every 6 hrs for n/v Hydralazine 5 mg IV every 4 hrs systolic pressure > 160 bowel regiment: lactulose 20 gm PO BID PRN constipation Supportive measures: Continue GI and DVT prophylaxis Disposition: Pending improvement in clinical condition All questions answered time spent: > 35 min TITA PETERSON MD May 02, 2025 12:23
--- NOTE | 2025-05-02 21:19 | PN ---
INFECTIOUS DISEASE PROGRESS NOTE Date of Service: May 02, 2025 SUBJECTIVE: This is a 35-year-old male patient who was seen and examined at bedside in room 220. Patient is awake, alert and oriented x3. Patient has remained afebrile for the past 24 hours and the WBC trended down slightly to 23.4. Hemoglobin is stable at 9.2. Patient had a KUB done yesterday with findings of concern of ileus versus partial small-bowel obstruction. Patient is pending a small bowel series for today. We will continue on Meropenem, fluconazole, metronidazole and vancom ycin per pharmacy protocol. No dyspnea and continues on oxygen via nasal cannula 3 L/min. PHYSICAL EXAM EYES: Anicteric. Pupils equal and reactive. HENT: No oral thrush seen, moist Oral mucosa. NECK: Supple, no JVD or thyromegaly. LUNGS: Diminished. Oxygen via nasal cannula. CARDIOVASCULAR: S1, S2 regular. No murmur heard. ABDOMEN: Abdomen is large but Soft, bowel sounds present. Left colostomy. CENTRAL NERVOUS SYSTEM: Awake, alert, oriented x 3. SKIN: No rashes, no swelling. LYMPHATICS: No peripheral lymphadenopathy. MUSCULOSKELETAL: Right knee pain. EXTREMITIES: No cyanosis or clubbing. BACK: No deformity, no pressure ulcer. GENITOURINARY: No dysuria or hematuria. Vital Sign (Last 12 Hours) 05/02/25 05/02/25 05/02/25 05/02/25 11:44 13:50 16:22 19:09 Temp 98.2 97.9 Pulse 90 87 82 Resp 16 22 16 22 B/P (MAP) 117/77 115/73 Pulse Ox 97 93 O2 Delivery Nasal Cannula N/Cannula Low lpm Room Air N/Cannula Low lpm O2 Flow Rate 3.0 3.0 3.0 FiO2 32 32 05/02/25 20:00 Temp 97.5 Pulse 86 Resp 21 B/P (MAP) 110/66 Pulse Ox 90 O2 Delivery Nasal Cannula O2 Flow Rate 3.0 Intake & Output (last 24hrs) 05/01/25 05/01/25 05/02/25 15:00 23:00 07:00 Intake Total 353.6 ml 253.6 ml 345.0 ml Output Total 1200 ml 1800 ml Balance 353.6 ml -946.4 ml -1455.0 ml LABS: Laboratory: Test 05/02/25 02:44 05/01/25 03:28 Range/Units White Blood Count 23.4 H 4.8-10.8 K/uL Red Blood Count 3.89 L 4.50-6.20 MIL/uL Hemoglobin 9.2 L 14.0-18.0 g/dL Hematocrit 30.4 L 42-54 % Mean Corpuscular Volume 78.1 L 79-99 fL Mean Corpuscular Hemoglobin 23.7 L 27.0-33.0 pg Mean Corpuscular Hemoglobin Concent 30.3 L 32.0-36.0 g/dL Red Cell Distribution Width 20.1 H 11.0-15.5 % Platelet Count 324 130-400 K/uL Mean Platelet Volume 11.0 H 7.5-10.5 fL Immature Granulocyte % (Auto) 7.0 H 0-1 % Neutrophils (%) (Auto) 85.0 H 40.0-77.0 % Lymphocytes (%) (Auto) 5.0 L 21.0-51.0 % Monocytes (%) (Auto) 2.6 L 3.0-13.0 % Eosinophils (%) (Auto) 0.0 0.0-8.0 % Basophils (%) (Auto) 0.4 0.0-5.0 % Neutrophils # (Auto) 19.9 H 1.8-7.7 K/uL Lymphocytes # (Auto) 1.2 1.0-4.8 K/uL Monocytes # (Auto) 0.6 0.1-1.0 K/uL Eosinophils # (Auto) 0.00 0.00-0.70 K/uL Basophils # (Auto) 0.09 0.00-0.20 K/uL Absolute Immature Granulocyte (auto 1.64 H 0-1 K/uL Nucleated Red Blood Cells 0.0 0.0-0.19 % Activated Partial Thromboplast Time 59.8 H 26.3-35.5 SEC Sodium Level 136 136-145 mmol/L Potassium Level 4.1 3.5-5.1 mmol/L Chloride Level 100 L 101-111 mmol/L Carbon Dioxide Level 29 21-32 mmol/L Blood Urea Nitrogen 16 7-18 mg/dL Creatinine 0.7 0.5-1.3 mg/dL Glomerular Filtration Rate Calc 123 >90 mL/min Random Glucose 148 H 70-105 mg/dL Total Calcium 8.5 8.5-10.1 mg/dL Magnesium Level 2.20 1.80-2.40 mg/dL Total Bilirubin 0.7 0.2-1.0 mg/dL Aspartate Amino Transf (AST/SGOT) 27 10-37 U/L Alanine Aminotransferase (ALT/SGPT) 11 L 12-78 U/L Alkaline Phosphatase 140 H 50-136 U/L Total Protein 7.3 6.0-8.3 g/dL Albumin 1.7 L 3.5-5.0 g/dL White Cell Morphology Comment See comments Vancomycin Level Trough 12.8 # 10.0-20.0 UG/ML ASSESSMENT: Hypoxic respiratory failure, requiring oxygen support. Staphylococcus epidermidis bacteremia, which is a contaminant. Leukocytosis. Right knee osteoarthritis. Bilateral pulmonary nodules consistent with metastatic disease, s/p lung biopsy. Small-bowel obstruction. Acute renal failure, improving. Morbid obesity. Recent Colorectal mass with resection and colostomy creation. Right upper extremity DVT. PLAN: Continue Meropenem. Continue fluconazole.. Continue vancomycin per pharmacy protocol. Continue metronidazole. Continues on heparin drip. Continue oxygen support. Continue GI prophylaxis. Continue pain management. Avoid nephrotoxic medications. Pending a small bowel series. This case was reviewed and discussed with my supervising physician Dr. Richards and the above assessment and plan was formulated and agreed upon. ATTESTATION BY PHYSICIAN I have seen and examined the patient. I reviewed the documentation, medical decision making, and treatment plan as noted by the mid-level provider above. I agree with the findings and plan of care. JULIANNA RICHARDS MD, [facility] May 02, 2025 21:19
--- NOTE | 2025-05-02 23:15 | PN ---
FOLLOWUP PROGRESS NOTE SUBJECTIVE: A 35-year-old male who has had a prolonged hospital course. He was initially admitted with acute on chronic renal failure. The patient has a history of metastatic disease. He did undergo lung biopsy results of which are pending. He continues to complain of underlying nausea. The patient's renal function has remained fairly stable and the patient is being seen as a followup visit for all the above. REVIEW OF SYSTEMS: GENERAL: He is feeling weak and tired. HEENT: No change in vision. No change in hearing. CARDIOVASCULAR: There is no current chest pain or palpitations. PULMONARY: Chronic shortness of breath. GASTROINTESTINAL: As described above. MUSCULOSKELETAL: Complains of weakness. PHYSICAL EXAMINATION: VITAL SIGNS: Blood pressure is 115/73. Pulse in the 80s. GENERAL: He is a chronically ill male, young, lying in bed on the medical floor. HEENT: Atraumatic. Pupils are equal, round and reactive to light. Oropharynx is without exudate. Nares are clear. NECK: There is no JVP. There is no thyromegaly. CARDIOVASCULAR: Regular. There is no S3 or S4 gallop. LUNGS: Coarse with equal thoracic movement. ABDOMEN: Soft, nontender, nondistended. EXTREMITIES: There is no clubbing or cyanosis. NEUROLOGICAL: He is awake and alert. LABORATORY DATA: Hemoglobin 9.2, hematocrit 30, white count is 23,000. BUN 16, creatinine 0.7. IMPRESSION: * [id number] renal failure. * Metastatic disease. * Deep vein thrombosis. * Hypertension. PLAN: The patient's renal function has remained fairly stable. Workup is ongoing per Oncology. He continues with heparin for the DVT. We will continue to follow closely. All labs will be repeated in the morning. The patient's electrolytes have all been aggressively repleted. TID: [id number] RECEIPT: [id number]
[2025-05-02] MEDS: FAMOTIDINE 20MG VIAL IV SCH (23:26)
[2025-05-03] VITALS (12 sets, daily range): BP systolic 102–121; BP diastolic 42–71; PULSE 76–94; RESP 16–24; TEMP 97.4–98.2; O2SAT 93–98
[2025-05-03] MEDS: CLINIMIX-E4.25%AA/D5+LYT2000ML 2,000 ML IV ONE (02:46)
[2025-05-03 04:16] LABS: IMMATURE GRANULOCYTE ABSOLUTE 1.08 K/uL (0-1); NUCLEATED RED BLOOD CELLS 0.0 % (0.0-0.19); PLATELET COUNT (AUTO) 338 K/uL (130-400); RED BLOOD CELL COUNT(AUTO) 3.69 MIL/uL (4.50-6.20); RED CELL DISTRIBUTION WIDTH 20.8 % (11.0-15.5); WHITE BLOOD COUNT (AUTO) 20.8 K/uL (4.8-10.8)
[2025-05-03 04:32] LABS: ASPARTATE AMINOTRANSFERASE 27.0 U/L (10-37); CREATININE 0.7 mg/dL (0.5-1.3); GLOMERULAR FILTR. RATE CALC 123.0 mL/min (>90); GLUCOSE,RANDOM 195.0 mg/dL (70-105); SODIUM SERUM 138.0 mmol/L (136-145); TOTAL PROTEIN, SERUM 7.4 g/dL (6.0-8.3); UREA NITROGEN, BLOOD 23.0 mg/dL (7-18)
--- NOTE | 2025-05-03 10:58 | PN ---
[facility] PROGRESS NOTE Date Patient Seen: May 03, 2025 Time of Visit: 10:57 Supervising Physician: Dr Andrea Olvera Inpatient Consults: Dr. Nguyen, Dr. Abad, Dr. Henry, Dr. Johnson PROBLEM LIST: Severe sepsis with MODS, resolving Leukocytosis Staphylococcus epidermidis bacteremia, which is a contaminant. 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 deep venous thrombosis involving the right axillary vein and brachial veins INTERVAL HISTORY: Patient was seen and examined, patient is sitting at the side of the bed. Patient is just back from his small bowel pass through. He states that he has had numerous loose stools and is passing gas. He is hoping to resume his diet shortly. We are waiting on surgery's recommendations Patient is awake alert and oriented reporting no pain or discomfort Good saturations on room air His vital signs are stable We ordered new cultures he continues on Merrem fluconazole and vancomycin PLAN We will continue to follow specialty recs, ID at cultures for antibiotics Heme-Onc is on board following their recommendations for his adenocarcinoma. Following the lung biopsies Continue with telemetry I&Os new lines following surgical recs, we will follow small bowel pass through, surgery for any resumption in diet Total care time spent 51 minutes, this time excludes procedures or educational time REVIEW OF SYSTEMS: 12 point ROS reviewed with patient. Pertinent positives mentioned above. Otherwise negative. PHYSICAL EXAM: GENERAL: alert, obese, weak, awake oriented x 3 HEENT: EOMI, Sclera non icteric, moist mucosa NC NECK: Supple, no JVD, trachea midline LUNGS: Diminished breath sounds bilaterally. No wheezes HEART: Normal rate and rhythm. Normal S1 and S2, without murmurs ABD: morbidly obese Abdomen soft, nontender. Bowel sounds hypoactive EXT: No clubbing cyanosis or edema NEURO: Alert and oriented to person, follows commands Vital Signs (last 8hr) Date Time Temp Pulse Resp B/P (MAP) Pulse Ox O2 Delivery O2 Flow Rate FiO2 05/03/25 08:02 20 N/Cannula Low lpm 3.0 32 05/03/25 07:00 97.3 85 20 104/59 93 Nasal Cannula 3.0 05/03/25 03:46 97.5 82 20 102/68 97 Nasal Cannula 3.0 LABS: Hematology Labs: Test 05/03/25 03:31 Range/Units White Blood Count 20.8 H 4.8-10.8 K/uL Red Blood Count 3.69 L 4.50-6.20 MIL/uL Hemoglobin 8.6 L 14.0-18.0 g/dL Hematocrit 29.1 L 42-54 % Mean Corpuscular Volume 78.9 L 79-99 fL Mean Corpuscular Hemoglobin 23.3 L 27.0-33.0 pg Mean Corpuscular Hemoglobin Concent 29.6 L 32.0-36.0 g/dL Red Cell Distribution Width 20.8 H 11.0-15.5 % Platelet Count 338 130-400 K/uL Mean Platelet Volume 10.9 H 7.5-10.5 fL Immature Granulocyte % (Auto) 5.2 H 0-1 % Neutrophils (%) (Auto) 84.4 H 40.0-77.0 % Lymphocytes (%) (Auto) 5.3 L 21.0-51.0 % Monocytes (%) (Auto) 4.9 3.0-13.0 % Eosinophils (%) (Auto) 0.0 0.0-8.0 % Basophils (%) (Auto) 0.2 0.0-5.0 % Neutrophils # (Auto) 17.5 H 1.8-7.7 K/uL Lymphocytes # (Auto) 1.1 1.0-4.8 K/uL Monocytes # (Auto) 1.0 0.1-1.0 K/uL Eosinophils # (Auto) 0.00 0.00-0.70 K/uL Basophils # (Auto) 0.04 0.00-0.20 K/uL Absolute Immature Granulocyte (auto 1.08 H 0-1 K/uL Nucleated Red Blood Cells 0.0 0.0-0.19 % Chemistry Labs: Test 05/03/25 03:31 Range/Units Sodium Level 138 136-145 mmol/L Potassium Level 3.9 3.5-5.1 mmol/L Chloride Level 102 101-111 mmol/L Carbon Dioxide Level 32 21-32 mmol/L Blood Urea Nitrogen 23 H 7-18 mg/dL Creatinine 0.7 0.5-1.3 mg/dL Glomerular Filtration Rate Calc 123 >90 mL/min Random Glucose 195 H 70-105 mg/dL Total Calcium 8.4 L 8.5-10.1 mg/dL Magnesium Level 2.30 1.80-2.40 mg/dL Total Bilirubin 0.5 0.2-1.0 mg/dL Aspartate Amino Transf (AST/SGOT) 27 10-37 U/L Alanine Aminotransferase (ALT/SGPT) 12 12-78 U/L Alkaline Phosphatase 151 H 50-136 U/L Total Protein 7.4 6.0-8.3 g/dL Albumin 2.0 L 3.5-5.0 g/dL Coagulation Labs: Test 05/03/25 03:31 Range/Units Activated Partial Thromboplast Time 49.8 H 26.3-35.5 SEC DIAGNOSTICS / RADIOLOGY RESULTS: [ ] PLAN NEURO: Minimize central acting medications as possible. Maintain fall precautions, adequate lighting during the day PULMONARY: Supplemental 02 as needed. Maintain aspiration precautions at all times CARDIOVASCULAR: Follow hemodynamics. Vital signs per facility protocol GI & NUTRITION: Continue with nutritional support. Continue stool softeners and laxatives as needed. KIDNEYS & ELECTROLYTES: Strict monitoring of intake, output and overall fluid balance. Avoid nephrotoxic medications to the extent possible. Medications to be dosed according to renal function. Monitor electrolytes and replace as needed ENDOCRINE: Maintain blood glucose between 100-180 at all times. Hypoglycemia protocol in place INFECTIOUS DISEASE: Trend temperature, WBC and procalcitonin level Follow cultures, deescalate antibiotics as soon as possible. Panculture if new onset fever ONCOLOGY/HEMATOLOGY/COAGULATION: Monitor for s/s of bleeding Monitor hemoglobin, coagulation studies as needed SKIN: Pressure ulcer prevention per facility protocol Specialty mattress ORTHO/REHAB: Continue PT/OT Prophylaxis: Continue GI and DVT prophylaxis Code Status: Full Resuscitation Disposition: Per primary team GABE LEVY PAC May 03, 2025 10:58
[2025-05-03] MEDS: BENZONATATE 100 MG CAPSULE PO PRN (11:32)
--- NOTE | 2025-05-03 12:03 | PN ---
[facility] PROGRESS NOTE Date of Service: May 03, 2025 Time of Service: 12:00 SUBJECTIVE: 04/20 the patient has been seen and examined at bedside, case discussed with the RN, no acute events overnight, the time of my visit, the patient is awake, following commands, blood pressure 140/90, afebrile, saturating normal on room air. The patient is morbidly obese, he uses a CPAP at home, currently CPAP at bedside during my visit. WBC 14.0, hemoglobin 10.4, hematocrit 34.8, platelet count of 305. CMP shows sodium 141, potassium 3.5, BUN 70, creatinine 0.9, iron level of 25. X-ray of the knee showing moderate to severe three, power mental right knee osteoarthritis, predominantly in the lateral compartment, with small joint effusion. No acute fracture. Orthopedic physician consultation requested, we will follow input and recommendation. MRI of the right knee requested, however due to morbid obesity, might not be able to do it. Discussed with the mother is at the bedside, all questions answered, in agreement. 04/21 patient has been seen and examined at bedside, case discussed with the RN, no acute events overnight, the time my visit he is awake, following commands, admits mild dry nonproductive cough, spiked fever 102.6. Denied chest pain, shortness shortness for breath, no nausea, no vomiting, no abdominal discomfort. The patient has a colostomy bag, on examination, liquid stool noted. WBC slowly trending down at 12.7, hemoglobin stable 11.6. Magnesium 1.7. Added doxycycline 100 mg IV q.12 hours. Follow serology to include SARS antigen, influenza and rapid strep. We will give magnesium sulfate 2 g IV x1. We will order GI stool panel. Patient is scheduled for MRI to the right knee today, continue lidocaine patch, discussed with the orthopedic physician today, we will follow input and recommendation. 04/22 patient is seen and examined at bedside, discussed with the RN. Patient currently feels nauseated. He admits mild discomfort to the right lower quadrant. BP 135/77, mildly tachycardic at 108, saturating normal on room air. Maximum temperature last 24 hours 102.7. CBC shows a hemoglobin of 11.6, hematocrit 35.7, platelet count of 276, with a platelet count of 23.8. Creatinine 2.1. MRI of the right knee shows tricompartmental osteoarthritis with osteophytosis and diffuse cartilage loss, medial and lateral meniscal with complex degenerative tear involving posterior horns and bodies, meniscal tear severity grade 3, full-thickness chondral defect of the lateral femoral condyle, with a underlying subchondral edema, small reactive joint effusion with mild synovitis. We will upgraded the patient to the PCU, LR at 50 mL/hours, follow repeat CBC, CMP and magnesium level. Continue Rocephin and doxycycline IV. We will order a CT of the abdomen and pelvis without contrast to rule out intra- abdominal acute pathology. Orthopedic input noted and appreciated, patient with bad arthritis, we will finally benefit from knee replacement, however considering his morbid obesity, it is not indicated right now. Recommended con servative approach. Mother at bedside, all questions answered, updated, in agreement with plan of care. 04/23 patient is seen and examined at bedside, discussed with the RN, no acute events overnight, patient upgraded to the ICU yesterday due to sepsis and developing small bowel obstruction. Today the patient is awake, following commands, he is NPO, NG tube to intermittent suction, BP 120/76, heart rate of 111, saturating 96% 3 L nasal cannula, temperature 98.4. WBC of 27.6, hemoglobin 10.6, hematocrit 35.5, platelet count 240, creatinine improved to 1.2. Septic workup with blood culture positive for Staphylococcus epidermidis. Echocardiogram and chest x-ray pending. Patient will remain admitted to the ICU, continue broad-spectrum IV antibiotics, we will follow surgical input recommendation. Continue to follow critical Care and ID input and recommendation. And we will update the mother regarding results of CT of the abdomen pelvis and further plan of care when she is present in the room. CT abdomen and pelvis reviewed, as follows: * Patient is undergoing mass evaluation. * Interval progression since 22 April 2025 with a new right upper lobe spiculated infiltrative mass measuring 5.4 ??? 4.6 cm infiltrating mediastinal pleura and abutting the right main pulmonary artery. * Bulky mediastinal lymphadenopathy with largest node measuring 4 cm, involving right paratracheal, prevascular, precarinal, and subcarinal stations, increased since prior study. * Multiple bilateral spiculated pulmonary nodules (1???2.5 cm), consistent with metastatic disease progression. * Bilateral marked diffuse adrenal enlargement (Right 5.9 ??? 3.6 cm, Left 7.6 ??? 5.4 cm), likely metastatic or hyperplastic. 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 * Degenerative thoracolumbar spondylosis with L4 vertebral body wedging (30???40% height loss), unchanged. * Comparison is made with the exam dated 22 April 2025. Overall findings indicate worsening metastatic disease with new primary and gloria lesions and mechanical bowel obstruction requiring clinical and surgical correlation. Recommendations include oncologic evaluation and PET-CT staging, alongside urgent surgical consultation for bowel obstruction. 04/24 patient is seen and examined at bedside, discussed with the RN, no acute events overnight, patient downgraded from the ICU to the PCU, he remains NPO, NG tube connected to intermittent suction, output in the last 12 hours 200 mL. BP 146/150, heart rate of 101, afebrile, saturating 96-97% on nasal cannula. CBC shows a hemoglobin of 9.9, hematocrit 33.5, platelet count of 235, with WBC of 21.3. CMP with sodium 146, potassium 3.8, BUN of 18, creatinine 0.9, magnesium 1.8. Blood culture 04/21/2025 positive for Staphylococcus epidermidis. Repeat blood cultures 04/23/2025 no growth after 24 hours echocardiogram 04/23/2025 LVEF 50-55%, no left ventricle thrombus, no intracardiac masses, no valvular vegetations. Today chest x-ray pending. Patient will remain admitted to the PCU, NPO, intermittent suction, continue to follow surgical input recommendation, continue broad-spectrum IV antibiotics, follow WBC in a.m.. Follow KUB. I HAVE CONTACTED THE DEPARTMENT OF MEDICAL RECORDS ARTERIOGRAM THE [facility], SPOKE WITH ZENA AT PHONE NUMBER [phone], I HAVE REQUESTED MEDICAL RECORDS. WE WILL FOLLOW UP. 04/25 patient is seen and examined at bedside, case discussed with the RN, no acute events overnight, he remains comfortably in bed, NPO, NG tube to intermittent suction, he is awake, following commands, BP 128/90, area of 101, afebrile. Still feels distended. On examination colostomy bag, enema output noted. KUB pending. KUB from 04/24/2025 showing markedly dilated small bowel loops up to 5.6 cm, consistent with distal small-bowel obstruction, no pneumoperitoneum, pneumatosis intestinalis or portal venous gas. I received medical records from [facility], patient was admitted on 11/19/2024 and discharged 12/08/2024. Areolar in the hospital patient underwent exploratory laparoscopy, laparotomy and creation of transverse loop colostomy 11/28/2024. Patient was evaluated by oncologist Braulio Bell. 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 Per my discussion with the mother, from [facility] the patient was discharged to [facility] to recover and from there he went home. Patient has not had a follow up appointment with the general surgeon or oncologist after that. We have requested Oncology consultation here during this admission. Pathology report from rectal biopsy shows moderately differentiated adenocarcinoma, then new pulmonary nodules and mediastinal lymphadenopathy as per CT scan indicates the possibility of metastatic disease. CEA is [id number]. Req uested pulmonary nodule biopsy by IR. Patient will remain admitted to the PCU, we will continue NG tube to intermittent suction, NPO, TPN, follow surgical input and recommendation. Follow repeat KUB. Mother at bedside, updated, all questions answered. Plan of care discussed with the patient as well, in agreement. 04/26 patient is seen and examined at bedside, discussed with the RN, no acute events overnight, patient is status post CT-guided biopsy of left anterior rib mass, 04/26/2025, tolerated the procedure well. At the time of my visit, he is awake, following commands, denied chest pain, shortness shortness for breath, no nausea, no vomiting. Colostomy bag full of air. No stool or liquid noted. Plan is for the patient to start clear liquid diet and advanced as tolerated. We will follow results of pathology. Continue to follow a.m. labs. Mother at bedside, updated. 04/27 patient is seen and, discussed with the RN, no acute events overnight, alert oriented x3, tolerating clear liquid diet. Passing gas in the colostomy bag but no bowel movement yet. Patient was swollen to the right upper extremity. Doppler showing deep venous thrombosis involving the right axillary vein and brachial veins, nonocclusive thrombosis of the right cephalic vein (superficial venous thrombosis). Correlate clinically for pulmonary embolism risk. Hemoglobin of 10.4, hematocrit 35.9, platelet count of 18.7. Findings of Doppler discussed with the mother, we will start the patient on heparin drip, risks versus benefits discussed, agreed to proceed with the anticoagulation. We will insert midline in the left upper extremity. We will continue to clinically monitor the patient.status post CT-guided biopsy of left anterior rib mass, 04/26/2025, follow up pathology. Continue to follow oncology input and recommendation. 04/28 patient is seen and, discussed with the RN, no acute events overnight, alert oriented x3, remains admitted to the PCU, alert oriented x3 at the time of my visit, tolerating soft diet, passing gas but no BM yet. Doppler showing deep venous thrombosis involving the right axillary vein and brachial veins, nonocclusive thrombosis of the right cephalic vein (superficial venous thr ombosis). Continue heparin drip. Oncology input noted and appreciated. Patient will need Port-A-Cath insertion before discharge home. status post CT- guided biopsy of left anterior rib mass, 04/26/2025, follow up pathology. Continue broad-spectrum IV antibiotics, trend WBC in a.m. per mother at bedside, updated. 04/29/25 The patient continue with Heparin drip given to DVT right axillary vein and brachial vein: will transition to po close to discharged. This patient will need Port-A-Cath insertion before discharge home. This patient need to be clear for Port-A-Cath insertion by infectious disease 04/30/25 patient is lying in bed primary nurse reports no events overnight. Patient we will have IR place Port-A-Cath tomorrow. Patient continues with broad-spectrum antibiotics continues heparin drip transitioned to p.o. post procedure. 05/01 patient is seen and, discussed with the RN, no acute events overnight, alert oriented x3, remains admitted to the PCU, alert oriented x3 at the time of my visit, tolerating soft diet, passing gas but no BM yet. Doppler showing deep venous thrombosis involving the right axillary vein and brachial veins, nonocclusive thrombosis of the right cephalic vein (superficial venous thrombosis). Continue heparin drip. Oncology input noted and appreciated. Patient will need Port-A-Cath insertion before discharge home. IR consultation requested. status post CT-guided biopsy of left anterior rib mass, 04/26/2025, follow up pathology. Continue broad-spectrum IV antibiotics, trend WBC in a.m. per mother at bedside, updated. On physical examination, only small liquid o utput from colostomy bag, no solid stool noted. Discussed with surgery, recommended small-bowel series. Continue to trend WBC in a.m.. Patient may require transfer to higher level of care, we will discuss with case management. 05/02 patient is seen and, discussed with the RN, no acute events overnight, alert oriented x3, remains admitted to the PCU, alert oriented x3 at the time of my visit, tolerating soft diet, passing gas. Colostomy bag on exam looks more full compared to yesterday however not solid stool yet. Discussed with the surgery yesterday, recommended small-bowel series, likely to be completed today, we will follow up. patient is seen and examined at bedside, discussed with the RN, no acute events overnight, patient remains comfortably in bed, alert oriented x3, feels hungry, passing gas, liquid stool noted in colostomy bag, still pending to complete small-bowel series. Patient remains on heparin drip, swollen to the right upper extremity almost resolved. Denies pain to the right upper arm. Continue to follow a.m. labs. Oncology input noted and appreciated, biopsy consistent with adenocarcinoma. Patient has stage IV colorectal cancer with metastatic disease to the lung. Peripheral bloood smear shows microcytic hypochromic anemia consistent with iron deficiency anemia . There is teardrop cell, pelger huet cell and rouleaux formation .Increased number of WBCs observed with neutrophilia and hypersegmented neutrophils suggestive of underlying infection . Band cells observed. Platelet morphology and count within normal limits .Discussed with the mother at bedside, all questions answered. In agreement. REVIEW OF SYSTEMS CONSTITUTIONAL: Denies fevers, chills, or night sweats. No unintentional weight loss reported. NEUROLOGICAL: Denies headache, amaurosis fugax, motor weakness, sensory deficit, vertigo/spinning sensation, gait abnormalities, or tremors. ENT: No hearing loss, otalgia, otorrhea, rhinitis, rhinorrhea, hoarseness, or sore throat. CARDIOVASCULAR: Denies any exertional angina, dyspnea on exertion, orthopnea, paroxysmal nocturnal dyspnea, palpitations, life-threatening arrhythmias, claudi cation. PULMONARY: Denies any shortness of breath, cough, phlegm/sputum, hemoptysis, pleuritic chest pain. SLEEP: Denies morning headaches, daytime somnolence or napping. Denies difficulty falling asleep, staying asleep, waking from sleep. Denies knowledge of snoring. GASTROINTESTINAL: Denies any type of dysphagia to either liquids or solids. Denies nausea, vomiting, pyrosis, early satiety, abdominal pain, diarrhea, constipation, or changes in stool consistency or caliber. Denies coffee-ground emesis, hematemesis, hematochezia, or melanotic stools. GENITOURINARY: Denies frequency, urgency, nocturia, hematuria or incontinence (Storage/Irritative symptoms.) Low urinary stream, straining to void, urinary intermittency or hesitancy, splitting of the voiding stream, terminal dribbling. ENDOCRINOLOGIC: Denies polyuria, polydipsia, polyphagia or heat/cold intolerances. HEMATOLOGIC: Denies thrombophilia/previous clots, or coagulopathy/bleeding disorders. ONCOLOGIC: Denies personal history of malignancy. DERMATOLOGIC: Denies rashes or pruritus. PSYCHIATRIC: Denies any suicidal or homicidal ideation. Denies hallucinations. PHYSICAL EXAM GENERAL APPEARANCE: Patient awake, following commands, NG tube to intermittent suction. NEUROLOGICAL: Cranial nerves II-XII grossly intact. Motor is 5/5 in bilateral upper and lower extremities proximal to distal. No sensory deficits. HEENT: Face is symmetric. Pupils are equal and reactive. Extraocular movements are intact. NECK: Supple. No JVD. No thyromegaly. No submental, submandibular, pre- /postauricular, occipital or supraclavicular lymphadenopathy. CHEST: Normal chest expansion. No Telemetry. LUNGS: Absence of any rales, rhonchi or any wheezing. CARDIOVASCULAR: Regular. S1 and S2 normal. No appreciable rubs, murmurs or gallops. ABDOMEN: Liquid output colostomy bag noted. : Deferred. No Doe. EXTREMITIES: Mild swelling to the right knee area, lidocaine patch in place. SKIN: No skin breakdown. Vital Signs (last 8hr) Date Time Temp Pulse Resp B/P (MAP) Pulse Ox O2 Delivery O2 Flow Rate FiO2 05/03/25 11:44 20 N/Cannula Low lpm 3.0 32 05/03/25 11:00 97.7 76 20 113/54 94 Nasal Cannula 3.0 05/03/25 08:02 20 N/Cannula Low lpm 3.0 32 05/03/25 08:00 93 Nasal Cannula* 3 32 05/03/25 07:00 97.3 85 20 104/59 93 Nasal Cannula 3.0 LABS: Laboratory: Test 05/03/25 03:31 Range/Units White Blood Count 20.8 H 4.8-10.8 K/uL Red Blood Count 3.69 L 4.50-6.20 MIL/uL Hemoglobin 8.6 L 14.0-18.0 g/dL Hematocrit 29.1 L 42-54 % Mean Corpuscular Volume 78.9 L 79-99 fL Mean Corpuscular Hemoglobin 23.3 L 27.0-33.0 pg Mean Corpuscular Hemoglobin Concent 29.6 L 32.0-36.0 g/dL Red Cell Distribution Width 20.8 H 11.0-15.5 % Platelet Count 338 130-400 K/uL Mean Platelet Volume 10.9 H 7.5-10.5 fL Immature Granulocyte % (Auto) 5.2 H 0-1 % Neutrophils (%) (Auto) 84.4 H 40.0-77.0 % Lymphocytes (%) (Auto) 5.3 L 21.0-51.0 % Monocytes (%) (Auto) 4.9 3.0-13.0 % Eosinophils (%) (Auto) 0.0 0.0-8.0 % Basophils (%) (Auto) 0.2 0.0-5.0 % Neutrophils # (Auto) 17.5 H 1.8-7.7 K/uL Lymphocytes # (Auto) 1.1 1.0-4.8 K/uL Monocytes # (Auto) 1.0 0.1-1.0 K/uL Eosinophils # (Auto) 0.00 0.00-0.70 K/uL Basophils # (Auto) 0.04 0.00-0.20 K/uL Absolute Immature Granulocyte (auto 1.08 H 0-1 K/uL Nucleated Red Blood Cells 0.0 0.0-0.19 % Activated Partial Thromboplast Time 49.8 H 26.3-35.5 SEC Sodium Level 138 136-145 mmol/L Potassium Level 3.9 3.5-5.1 mmol/L Chloride Level 102 101-111 mmol/L Carbon Dioxide Level 32 21-32 mmol/L Blood Urea Nitrogen 23 H 7-18 mg/dL Creatinine 0.7 0.5-1.3 mg/dL Glomerular Filtration Rate Calc 123 >90 mL/min Random Glucose 195 H 70-105 mg/dL Total Calcium 8.4 L 8.5-10.1 mg/dL Magnesium Level 2.30 1.80-2.40 mg/dL Total Bilirubin 0.5 0.2-1.0 mg/dL Aspartate Amino Transf (AST/SGOT) 27 10-37 U/L Alanine Aminotransferase (ALT/SGPT) 12 12-78 U/L Alkaline Phosphatase 151 H 50-136 U/L Total Protein 7.4 6.0-8.3 g/dL Albumin 2.0 L 3.5-5.0 g/dL Vancomycin Level Trough 10.3 10.0-20.0 UG/ML Current Medications Medications (Trade) Dose Ordered Sig/Checo Route PRN Reason Start Time Stop Time Status Last Admin Dose Admin Acetaminophen (TYLenol 325MG TAB) 650 mg Q6H PRN PO FEVER/pain 1-3 04/19/25 22:00 05/19/25 21:59 04/21/25 02:20 650 MG Benzonatate (Tessalon 100mg Caps) 100 mg Q8H PRN PO COUGH 05/03/25 11:00 06/02/25 10:59 05/03/25 11:32 100 MG Cefepime HCl (MAXipime 2 gm vial) 2 gm Q8H IVPB 04/22/25 13:00 04/30/25 13:07 DC 04/30/25 04:27 2 GM Cefepime HCl (MAXipime 2 gm vial) 2 gm Q8H IVPB 04/30/25 16:00 05/01/25 12:05 DC 05/01/25 00:34 2 GM Ceftriaxone Sodium (ROCEphine 1G INJ) 1 gm Q24H IVPB 04/20/25 10:00 04/22/25 12:41 DC 04/22/25 10:53 1 GM Dexamethasone Sodium Phosphate (dexaMETHasone 4MG/ML 1ML VIAL) 10 mg Q24H IV 05/01/25 17:00 05/02/25 09:13 DC 05/01/25 17:22 10 MG Dexamethasone Sodium Phosphate (dexaMETHasone 10MG/ML 1ML VIAL) 10 mg Q24H IV 05/02/25 17:00 05/31/25 16:59 05/02/25 16:57 10 MG Dextrose 1,000 ml @ 50 mls/hr Q20H IV 04/25/25 08:00 04/25/25 16:53 DC 04/25/25 10:38 100 MLS/HR Doxycycline Hyclate 250 ml @ 125 mls/hr Q12H IV 04/21/25 08:30 04/22/25 12:41 DC 04/22/25 08:14 125 MLS/HR Enoxaparin Sodium (Lovenox) 40 mg DAILY SQ 04/20/25 09:00 04/22/25 20:00 DC 04/22/25 08:14 40 MG Enoxaparin Sodium (Lovenox) 40 mg Q12H SQ 04/22/25 21:00 04/27/25 13:24 DC 04/27/25 08:10 40 MG Famotidine (Pepcid 20mg Vial) 20 mg BID IV 05/02/25 21:00 06/01/25 20:59 05/03/25 10:25 20 MG Famotidine (Pepcid 20mg Tab) 20 mg DAILY PO 04/20/25 09:00 05/02/25 12:03 DC 04/30/25 09:23 20 MG Fluconazole (DiFLUCan 100 mg TAB) 200 mg Q24H PO 05/01/25 12:30 05/02/25 12:03 DC Fluconazole/ Sodium Chloride (DiFLUCan 200 MG/ NS 100 ML) 200 mg Q24H IVPB 05/02/25 12:00 06/01/25 11:59 05/03/25 11:32 200 MG Furosemide (LASix 20MG VIAL) 20 mg Q12H IV 04/29/25 11:00 05/29/25 10:59 05/03/25 10:25 20 MG Furosemide (LASix 20MG VIAL) 20 mg Q8H IV 04/24/25 19:00 04/25/25 03:01 DC 04/25/25 03:06 20 MG Heparin Sodium (Porcine) (HEParin 5,000 UNIT VIAL) *calculation based on ACTUAL B... AD PRN IV HEPARIN PROTOCOL 04/27/25 14:00 05/27/25 13:59 Heparin Sodium/ Dextrose 250 ml @ 0 mls/hr Q6H IV 04/27/25 14:00 05/27/25 13:59 05/02/25 16:59 19.17 MLS/HR Hydralazine HCl (APRESOLine 20MG INJ) 5 mg Q6H PRN IV For:SBP above 160;DBP above 90 04/20/25 16:00 05/20/25 15:59 Hydralazine HCl (APRESOLine 20MG INJ) 10 mg Q6H PRN IV For:SBP above 160;DBP above 90 04/19/25 22:00 04/20/25 10:52 DC Hydromorphone HCl (DiLAUDid 0.5MG INJ) 0.5 mg Q4H PRN IVP SEVERE PAIN (7-10) 04/22/25 20:00 04/27/25 19:59 DC Ipratropium Dawson (AtrovENT UD) 0.5 MG Q6H PRN IH SHORTNESS OF BREATH 04/28/25 19:30 05/28/25 19:29 04/29/25 11:10 0.5 MG Iron Sucrose (VenoFER) 200 mg DAILY IV 04/26/25 09:00 04/28/25 11:00 DC 04/28/25 09:20 200 MG Ketorolac Tromethamine (toRADol) 15 mg Q6H PRN IM MODERATE PAIN (4-6) 04/30/25 11:30 05/05/25 11:29 Ketorolac Tromethamine (toRADol) 15 mg Q6H PRN IV MODERATE PAIN (4-6) 04/20/25 11:00 04/22/25 19:58 DC 04/20/25 22:08 15 MG Labetalol HCl (TRANdate 20MG SYG) 10 mg Q6H PRN IV SUSTAINED HR >120 04/23/25 00:00 05/23/25 00:00 Lactated Ringer's 1,000 ml @ 50 mls/hr Q20H IV 04/21/25 12:30 04/25/25 07:47 DC 04/24/25 02:58 75 MLS/HR Lactated Ringer's 1,000 ml @ 100 mls/hr Q10H IV 04/19/25 22:00 04/20/25 10:52 DC 04/21/25 12:40 100 MLS/HR Lactulose (Constulose 20gm/ 30ml Udcup) 20 gm ACHS PRN PO CONSTIPATION 04/29/25 20:00 04/30/25 13:06 DC 04/30/25 09:33 20 GM Lactulose (Constulose 20gm/ 30ml Udcup) 20 gm BID PRN PO CONSTIPATION 04/19/25 22:00 04/29/25 19:41 DC Lactulose (Constulose 20gm/ 30ml Udcup) 20 gm Q6HWA PRN PO CONSTIPATION 04/30/25 13:00 05/30/25 12:59 Lidocaine (Lidocaine Patch 4%) 1 each DAILY TP 04/21/25 09:00 05/21/25 08:59 05/03/25 10:25 1 EACH Magnesium Sulfate 50 ml @ 0 mls/hr PROTOCOL IV 04/21/25 08:30 05/21/25 08:29 04/24/25 06:11 25 MLS/HR Meropenem (Merrem 1gm) 1 gm Q8H IVPB 05/01/25 12:30 05/02/25 12:29 DC 05/02/25 04:15 1 GM Metoclopramide HCl (regLAN 10MG IV) 10 mg Q6H6 IVP 05/01/25 18:00 05/31/25 17:59 05/03/25 11:32 10 MG Metronidazole/ Sodium Chloride 100 ml @ 100 mls/hr Q8H6 IVPB 04/22/25 14:00 05/02/25 13:59 DC 05/02/25 09:55 100 MLS/HR Morphine Sulfate (morPHINE 4MG SYG) 4 mg Q4H PRN IVP SEVERE PAIN (7-10) 04/19/25 22:00 04/20/25 10:52 DC Nystatin (NystOP 15 GM POWDER) 1 APPLICATION BID TP 04/26/25 14:00 05/26/25 13:59 05/03/25 10:25 1 APPL Ondansetron HCl (zoFRAN 4MG INJ) 4 mg Q6H PRN IV NAUSEA/VOMITING 04/19/25 22:00 05/19/25 21:59 04/24/25 22:19 4 MG Pharmacy Profile Note (Pharmacy Communication) 1 each ONCE MISC 05/01/25 12:30 05/01/25 12:11 DC Potassium Chloride 100 ml @ 100 mls/hr PROTOCOL PRN IV hypokalemia 05/01/25 21:00 05/31/25 20:59 05/01/25 22:29 100 MLS/HR Promethazine HCl (Phenergan) 12.5 mg Q8H5 PRN IM NAUSEA/VOMITING 04/22/25 12:30 05/22/25 12:29 04/22/25 12:25 12.5 MG Sodium Chloride 500 ml @ 0 mls/hr Q0M STAT IV 04/22/25 13:17 04/22/25 13:22 DC 04/22/25 14:39 600 MLS/HR Vancomycin HCl 250 ml @ 125 mls/hr Q24H IV 05/01/25 05:00 05/11/25 04:59 05/03/25 05:41 125 MLS/HR Vancomycin HCl 250 ml @ 125 mls/hr Q8H IV 04/29/25 21:00 04/30/25 14:25 DC 04/30/25 05:52 125 MLS/HR Vancomycin HCl (Vancomycin Protocol) 1 each AD IV 04/22/25 15:00 04/23/25 22:23 DC Vancomycin HCl (Vancomycin Protocol) 1 each AD IV 04/29/25 11:00 05/13/25 10:59 DIAGNOSTICS / RADIOLOGY: [ ] ASSESSMENT: Severe sepsis with MODS, resolved Leukocytosis Gram-positive cocci bacteremia Status post left rib biopsy by IR on 04/26/2025 New right upper lobe spiculated infiltrative mass measuring 5.4 x 4.6 cm infiltrating mediastinal pleura and albumin in the right main pulmonary artery Bulky mediastinal lymphadenopathy with the largest node measuring 4 cm involving the right paratracheal, prevascular, and subcarinal stations Multiple bilateral spiculated pulmonary nodules consistent with metastatic disease progression Bilateral marked diffuse adrenal enlargement likely metastatic or hyperplastic Left iliac fossa 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 Right upper extremity DVT involving the axillary and brachial veins Small-bowel obstruction Stage IV colorectal cancer with metastatic disease to the lung, pathology consistent with moderately differentiated adenocarcinoma, POA PLAN: patient is seen and examined at bedside, discussed with the RN, no acute events overnight, patient remains comfortably in bed, alert oriented x3, feels hungry, passing gas, liquid stool noted in colostomy bag, still pending to complete small-bowel series. Patient remains on heparin drip, swollen to the right upper extremity almost resolved. Denies pain to the right upper arm. Continue to follow a.m. labs. Oncology input noted and appreciated, biopsy consistent with adenocarcinoma. Patient has stage IV colorectal cancer with metastatic disease to the lung. Peripheral bloood smear shows microcytic hypochromic anemia consistent with iron deficiency anemia . There is teardrop cell, pelger huet cell and rouleaux formation .Increased number of WBCs observed with neutrophilia and hypersegmented neutrophils suggestive of underlying infection . Band cells observed. Platelet morphology and count within normal limits .Discussed with the mother at bedside, all questions answered. In agreement. NEURO: Minimize central acting medications as possible. Fall Precautions. Well lighted room through the day and minimize interruptions through the night to prevent acute delirium. PULMONARY: Supplemental 02 as needed BiPAP as necessary, for respiratory distress Titrate Fio2 to keep Spo2 > or = 90% DuoNebs and CPT as needed IS hourly while awake for pulmonary hygiene prn Out of bed to chair as tolerated Maintain aspiration precautions at all times CARDIOVASCULAR: Follow hemodynamics. Vital signs per facility protocol GI & NUTRITION: Continue nutritional support Aspirations precautions Prokinetic agents and laxatives as needed KIDNEYS & ELECTROLYTES: Strict monitoring of intake and output Daily weights Avoid nephrotoxic agents Monitor electrolytes and replace as needed Goal urine output of 30mL/hr or 0.5mL/kg/hr Medications to be dosed according to renal function. Avoid contrast if possible ENDOCRINE: Maintain blood glucose between 100-180 at all times. Insulin sliding scale for blood glucose management Hypoglycemia and hyperglycemia protocol in place INFECTIOUS DISEASE: Trend temperature, WBC and procalcitonin level Follow cultures, deescalate antibiotics as soon as possible. Panculture if new onset fever HEMATOLOGY & COAGULATION: Monitor H&H. Keep Hgb > 7 Transfuse 1 unit of PRBC for Hgb < 7 Transfuse 1 pack of platelets of platelets < 20, 000 Watch for any signs and symptoms of bleeding SKIN: Pressure ulcer prevention per facility protocol Specialty mattress as needed ORTHO/REHAB Continue PT/OT PRN: MEDICATIONS Tylenol 650 mg po every 4 hrs for fever zofran 4 mg IV every 6 hrs for n/v Hydralazine 5 mg IV every 4 hrs systolic pressure > 160 bowel regiment: lactulose 20 gm PO BID PRN constipation Supportive measures: Continue GI and DVT prophylaxis Disposition: Pending improvement in clinical condition All questions answered time spent: > 35 min TITA PETERSON MD May 03, 2025 12:03
--- NOTE | 2025-05-03 14:29 | PN ---
NEPHROLOGY PROGRESS NOTE Date/Time Patient Seen: May 03, 2025 SUBJECTIVE: This is a 35-year-old male with a past medical history of morbid obesity, colon mass S/p resection with colostomy. He presented to emergency room with complaints of right knee pain. He has had a prolonged hospital stay. He was initially admitted with the acute on chronic renal failure. He does have a history of metastatic disease. S/p lung biopsy consistent with adenocarcinoma, stage IV Colorectal cancer with metastatic disease to the lung He continues on heparin drip for DVT. The patient's renal function has remained fairly stable in the patient has been seen as a follow up visit for all the above. Renal function and electrolytes has been stable Pending complaints small-bowel series. Continues on diuretics He was seen in the medical floor, in no acute distress Multiple family members at the bedside REVIEW OF SYSTEMS: GENERAL: Positive for generalized weakness NEUROLOGIC: Negative for any blurry vision, blind spots, double vision, facial asymmetry, dysphagia, dysarthria, hemiparesis, hemisensory deficits, vertigo, ataxia. HEENT: Negative for any head trauma, neck trauma, neck stiffness, photophobia, phonophobia, sinusitis, rhinitis. CARDIAC: Negative for any chest pain, dyspnea on exertion, paroxysmal nocturnal dyspnea, peripheral edema. PULMONARY: Negative for any shortness of breath, wheezing, COPD, or TB exposure. GASTROINTESTINAL: Negative for any abdominal pain, nausea, vomiting, bright red blood per rectum, melena. GENITOURINARY: Negative for any dysuria, hematuria, incontinence. INTEGUMENTARY: Negative for any rashes, cuts, insect bites. RHEUMATOLOGIC: Negative for any joint pains, photosensitive rashes, history of vasculitis or kidney problems. HEMATOLOGIC: Negative for any abnormal bruising, frequent infections or bleeding. Vital Signs (last 8hr) Date Time Temp Pulse Resp B/P (MAP) Pulse Ox O2 Delivery O2 Flow Rate FiO2 05/03/25 13:07 97.9 89 18 121/42 93 Room Air 05/03/25 11:44 20 N/Cannula Low lpm 3.0 32 05/03/25 11:00 97.7 76 20 113/54 94 Nasal Cannula 3.0 05/03/25 08:02 20 N/Cannula Low lpm 3.0 32 05/03/25 08:00 93 Nasal Cannula* 3 32 05/03/25 07:00 97.3 85 20 104/59 93 Nasal Cannula 3.0 PHYSICAL EXAM: GENERAL: Alert and oriented x 3. No acute distress. Well-nourished. EYES: EOMI. Anicteric. HENT: Moist mucous membranes. No scleral icterus. No cervical lymphadenopathy. LUNGS: Clear to auscultation bilaterally. No accessory muscle use. CARDIOVASCULAR: Regular rate and rhythm. No murmur. No JVD. ABDOMEN: Soft, non-tender and non-distended. No palpable masses. EXTREMITIES: No edema. Non-tender.?SKIN: No rashes or lesions. Warm. NEUROLOGIC: No focal neurological deficits. CN II-XII grossly intact, but not individually tested. PSYCHIATRIC: Cooperative. Appropriate mood and affect. Current Medications Medications (Trade) Dose Ordered Sig/Checo Route PRN Reason Start Time Stop Time Status Last Admin Dose Admin Acetaminophen (TYLenol 325MG TAB) 650 mg Q6H PRN PO FEVER/pain 1-3 04/19/25 22:00 05/19/25 21:59 04/21/25 02:20 650 MG Benzonatate (Tessalon 100mg Caps) 100 mg Q8H PRN PO COUGH 05/03/25 11:00 06/02/25 10:59 05/03/25 11:32 100 MG Cefepime HCl (MAXipime 2 gm vial) 2 gm Q8H IVPB 04/22/25 13:00 04/30/25 13:07 DC 04/30/25 04:27 2 GM Cefepime HCl (MAXipime 2 gm vial) 2 gm Q8H IVPB 04/30/25 16:00 05/01/25 12:05 DC 05/01/25 00:34 2 GM Ceftriaxone Sodium (ROCEphine 1G INJ) 1 gm Q24H IVPB 04/20/25 10:00 04/22/25 12:41 DC 04/22/25 10:53 1 GM Dexamethasone Sodium Phosphate (dexaMETHasone 4MG/ML 1ML VIAL) 10 mg Q24H IV 05/01/25 17:00 05/02/25 09:13 DC 05/01/25 17:22 10 MG Dexamethasone Sodium Phosphate (dexaMETHasone 10MG/ML 1ML VIAL) 10 mg Q24H IV 05/02/25 17:00 05/31/25 16:59 05/02/25 16:57 10 MG Dextrose 1,000 ml @ 50 mls/hr Q20H IV 04/25/25 08:00 04/25/25 16:53 DC 04/25/25 10:38 100 MLS/HR Doxycycline Hyclate 250 ml @ 125 mls/hr Q12H IV 04/21/25 08:30 04/22/25 12:41 DC 04/22/25 08:14 125 MLS/HR Enoxaparin Sodium (Lovenox) 40 mg DAILY SQ 04/20/25 09:00 04/22/25 20:00 DC 04/22/25 08:14 40 MG Enoxaparin Sodium (Lovenox) 40 mg Q12H SQ 04/22/25 21:00 04/27/25 13:24 DC 04/27/25 08:10 40 MG Famotidine (Pepcid 20mg Vial) 20 mg BID IV 05/02/25 21:00 06/01/25 20:59 05/03/25 10:25 20 MG Famotidine (Pepcid 20mg Tab) 20 mg DAILY PO 04/20/25 09:00 05/02/25 12:03 DC 04/30/25 09:23 20 MG Fluconazole (DiFLUCan 100 mg TAB) 200 mg Q24H PO 05/01/25 12:30 05/02/25 12:03 DC Fluconazole/ Sodium Chloride (DiFLUCan 200 MG/ NS 100 ML) 200 mg Q24H IVPB 05/02/25 12:00 06/01/25 11:59 05/03/25 11:32 200 MG Furosemide (LASix 20MG VIAL) 20 mg Q12H IV 04/29/25 11:00 05/29/25 10:59 05/03/25 10:25 20 MG Furosemide (LASix 20MG VIAL) 20 mg Q8H IV 04/24/25 19:00 04/25/25 03:01 DC 04/25/25 03:06 20 MG Heparin Sodium (Porcine) (HEParin 5,000 UNIT VIAL) *calculation based on ACTUAL B... AD PRN IV HEPARIN PROTOCOL 04/27/25 14:00 05/27/25 13:59 Heparin Sodium/ Dextrose 250 ml @ 0 mls/hr Q6H IV 04/27/25 14:00 05/27/25 13:59 05/02/25 16:59 19.17 MLS/HR Hydralazine HCl (APRESOLine 20MG INJ) 5 mg Q6H PRN IV For:SBP above 160;DBP above 90 04/20/25 16:00 05/20/25 15:59 Hydralazine HCl (APRESOLine 20MG INJ) 10 mg Q6H PRN IV For:SBP above 160;DBP above 90 04/19/25 22:00 04/20/25 10:52 DC Hydromorphone HCl (DiLAUDid 0.5MG INJ) 0.5 mg Q4H PRN IVP SEVERE PAIN (7-10) 04/22/25 20:00 04/27/25 19:59 DC Ipratropium [place] (AtrovENT UD) 0.5 MG Q6H PRN IH SHORTNESS OF BREATH 04/28/25 19:30 05/28/25 19:29 04/29/25 11:10 0.5 MG Iron Sucrose (VenoFER) 200 mg DAILY IV 04/26/25 09:00 04/28/25 11:00 DC 04/28/25 09:20 200 MG Ketorolac Tromethamine (toRADol) 15 mg Q6H PRN IM MODERATE PAIN (4-6) 04/30/25 11:30 05/05/25 11:29 Ketorolac Tromethamine (toRADol) 15 mg Q6H PRN IV MODERATE PAIN (4-6) 04/20/25 11:00 04/22/25 19:58 DC 04/20/25 22:08 15 MG Labetalol HCl (TRANdate 20MG SYG) 10 mg Q6H PRN IV SUSTAINED HR >120 04/23/25 00:00 05/23/25 00:00 Lactated Ringer's 1,000 ml @ 50 mls/hr Q20H IV 04/21/25 12:30 04/25/25 07:47 DC 04/24/25 02:58 75 MLS/HR Lactated Ringer's 1,000 ml @ 100 mls/hr Q10H IV 04/19/25 22:00 04/20/25 10:52 DC 04/21/25 12:40 100 MLS/HR Lactulose (Constulose 20gm/ 30ml Udcup) 20 gm ACHS PRN PO CONSTIPATION 04/29/25 20:00 04/30/25 13:06 DC 04/30/25 09:33 20 GM Lactulose (Constulose 20gm/ 30ml Udcup) 20 gm BID PRN PO CONSTIPATION 04/19/25 22:00 04/29/25 19:41 DC Lactulose (Constulose 20gm/ 30ml Udcup) 20 gm Q6HWA PRN PO CONSTIPATION 04/30/25 13:00 05/30/25 12:59 Lidocaine (Lidocaine Patch 4%) 1 each DAILY TP 04/21/25 09:00 05/21/25 08:59 05/03/25 10:25 1 EACH Magnesium Sulfate 50 ml @ 0 mls/hr PROTOCOL IV 04/21/25 08:30 05/21/25 08:29 04/24/25 06:11 25 MLS/HR Meropenem (Merrem 1gm) 1 gm Q8H IVPB 05/01/25 12:30 05/02/25 12:29 DC 05/02/25 04:15 1 GM Metoclopramide HCl (regLAN 10MG IV) 10 mg Q6H6 IVP 05/01/25 18:00 05/31/25 17:59 05/03/25 11:32 10 MG Metronidazole/ Sodium Chloride 100 ml @ 100 mls/hr Q8H6 IVPB 04/22/25 14:00 05/02/25 13:59 DC 05/02/25 09:55 100 MLS/HR Morphine Sulfate (morPHINE 4MG SYG) 4 mg Q4H PRN IVP SEVERE PAIN (7-10) 04/19/25 22:00 04/20/25 10:52 DC Nystatin (NystOP 15 GM POWDER) 1 APPLICATION BID TP 04/26/25 14:00 05/26/25 13:59 05/03/25 10:25 1 APPL Ondansetron HCl (zoFRAN 4MG INJ) 4 mg Q6H PRN IV NAUSEA/VOMITING 04/19/25 22:00 05/19/25 21:59 04/24/25 22:19 4 MG Pharmacy Profile Note (Pharmacy Communication) 1 each ONCE MISC 05/01/25 12:30 05/01/25 12:11 DC Potassium Chloride 100 ml @ 100 mls/hr PROTOCOL PRN IV hypokalemia 05/01/25 21:00 05/31/25 20:59 05/01/25 22:29 100 MLS/HR Promethazine HCl (Phenergan) 12.5 mg Q8H5 PRN IM NAUSEA/VOMITING 04/22/25 12:30 05/22/25 12:29 04/22/25 12:25 12.5 MG Sodium Chloride 500 ml @ 0 mls/hr Q0M STAT IV 04/22/25 13:17 04/22/25 13:22 DC 04/22/25 14:39 600 MLS/HR Vancomycin HCl 250 ml @ 125 mls/hr Q24H IV 05/01/25 05:00 05/11/25 04:59 05/03/25 05:41 125 MLS/HR Vancomycin HCl 250 ml @ 125 mls/hr Q8H IV 04/29/25 21:00 04/30/25 14:25 DC 04/30/25 05:52 125 MLS/HR Vancomycin HCl (Vancomycin Protocol) 1 each AD IV 04/22/25 15:00 04/23/25 22:23 DC Vancomycin HCl (Vancomycin Protocol) 1 each AD IV 04/29/25 11:00 05/13/25 10:59 LABORATORY: [ ] Hematology Labs: Test 05/03/25 03:31 Range/Units White Blood Count 20.8 H 4.8-10.8 K/uL Red Blood Count 3.69 L 4.50-6.20 MIL/uL Hemoglobin 8.6 L 14.0-18.0 g/dL Hematocrit 29.1 L 42-54 % Mean Corpuscular Volume 78.9 L 79-99 fL Mean Corpuscular Hemoglobin 23.3 L 27.0-33.0 pg Mean Corpuscular Hemoglobin Concent 29.6 L 32.0-36.0 g/dL Red Cell Distribution Width 20.8 H 11.0-15.5 % Platelet Count 338 130-400 K/uL Mean Platelet Volume 10.9 H 7.5-10.5 fL Immature Granulocyte % (Auto) 5.2 H 0-1 % Neutrophils (%) (Auto) 84.4 H 40.0-77.0 % Lymphocytes (%) (Auto) 5.3 L 21.0-51.0 % Monocytes (%) (Auto) 4.9 3.0-13.0 % Eosinophils (%) (Auto) 0.0 0.0-8.0 % Basophils (%) (Auto) 0.2 0.0-5.0 % Neutrophils # (Auto) 17.5 H 1.8-7.7 K/uL Lymphocytes # (Auto) 1.1 1.0-4.8 K/uL Monocytes # (Auto) 1.0 0.1-1.0 K/uL Eosinophils # (Auto) 0.00 0.00-0.70 K/uL Basophils # (Auto) 0.04 0.00-0.20 K/uL Absolute Immature Granulocyte (auto 1.08 H 0-1 K/uL Nucleated Red Blood Cells 0.0 0.0-0.19 % Chemistry Labs: Test 05/03/25 03:31 Range/Units Sodium Level 138 136-145 mmol/L Potassium Level 3.9 3.5-5.1 mmol/L Chloride Level 102 101-111 mmol/L Carbon Dioxide Level 32 21-32 mmol/L Blood Urea Nitrogen 23 H 7-18 mg/dL Creatinine 0.7 0.5-1.3 mg/dL Glomerular Filtration Rate Calc 123 >90 mL/min Random Glucose 195 H 70-105 mg/dL Total Calcium 8.4 L 8.5-10.1 mg/dL Magnesium Level 2.30 1.80-2.40 mg/dL Total Bilirubin 0.5 0.2-1.0 mg/dL Aspartate Amino Transf (AST/SGOT) 27 10-37 U/L Alanine Aminotransferase (ALT/SGPT) 12 12-78 U/L Alkaline Phosphatase 151 H 50-136 U/L Total Protein 7.4 6.0-8.3 g/dL Albumin 2.0 L 3.5-5.0 g/dL Coagulation Labs: Test 05/03/25 03:31 Range/Units Activated Partial Thromboplast Time 49.8 H 26.3-35.5 [facility]OLOGY: [place] [id number] [address] IMAGING REPORT Signed PATIENT: MARTY BARRON MR#: [id number] : 1990 SEX: M AGE: 35 LOCATION: PENDING SALE TO [facility] ORDER 1434 STATUS: ADM IN REPORT#: [id number] SERVICE 1433 REASON: RULE OUT OBSTRUCTION VS ILIEUS ORDERING PHYSICIAN: TITA PETERSON MD PROCEDURE: ABD 1VW - ABD 1VW EXAM: CR Abdomen, 4 View. CLINICAL HISTORY: RULE OUT OBSTRUCTION VS ILIEUS COMPARISON: Radiograph dated April 30, 2025 FINDINGS: Redemonstrated air-filled dilated loops of small bowel measuring up to 5.[address] imaging to exclude small bowel ileus versus a partial distal small bowel obstruction. IMPRESSION: 1. Dilated small bowel loops up to 5.0 cm, concerning for ileus or partial small bowel obstruction. CT imaging recommended for further evaluation. /[place] DICTATED BY: ANTONIO STEINBERG Jr., MD DATE: 05/01/251946 ELECTRONICALLY SIGNED BY: ANTONIO STEINBERG Jr., MD DATE: 05/01/251946 PATIENT: MARTY BARRON MR#: [id number] : 1990 SEX: M AGE: 35 LOCATION: 2DH ORDER 230 STATUS: ADM IN REPORT#: [id number] SERVICE 0600 REASON: decreased ostomy output ORDERING PHYSICIAN: SAROJ MAGDALENO PROCEDURE: CXR1VW - CHEST 1VW EXAM: CR Chest, 1 View. CLINICAL HISTORY: Decreased ostomy output. COMPARISON: CR ??? Chest 1 View dated 04/30/25, 08:56 EST. FINDINGS: LUNGS: Persistent right paratracheal opacity with inhomogeneous airspace infiltrates in the right lung. Inhomogeneous airspace infiltrates in the left upper lung appear decreased, suggesting interval resolution. No new pulmonary consolidation or mass. PLEURAL SPACES: No pleural effusion or pneumothorax. MEDIASTINUM: Cardiomediastinal silhouette within normal limits. BONES: No acute or aggressive osseous lesion. IMPRESSION: * Persistent right paratracheal opacity with inhomogeneous right lung infiltrates. * Interval resolving left upper lung infiltrates. * No pleural effusion or pneumothorax. Comparison: Compared with prior radiograph dated 04/30/25, right-sided opacities persist while left upper lung infiltrates show partial resolution. /[place] DICTATED BY: JOSAFAT DALY MD DATE: 05/01/252324 ELECTRONICALLY SIGNED BY: JOSAFAT DALY MD DATE: 05/01/252324 PATIENT: MARTY BARRON MR#: [id number] : 1990 SEX: M AGE: 35 LOCATION: 2D ORDER 99 STATUS: ADM IN [facility] REPORT#: [id number] SERVICE 9 REASON: decreased ostomy output ORDERING PHYSICIAN: SAROJ MAGDALENO PROCEDURE: CXR1VW - CHEST 1VW EXAM: CHEST RADIOGRAPH, 1 VIEW Technique: Single frontal expiratory view of the chest. Clinical Information: Decreased ostomy output. Findings: Lungs and large airways: Mild patchy opacities are present in both upper lobes; a right paratracheal suprahilar opacity is again seen; no lobar collapse is identified. Pleura: No pleural effusion or pneumothorax is identified. Heart and mediastinum: Cardiomediastinal silhouette is within normal limits. Bones/joints: No acute osseous abnormality is identified. Impression: * Comparison: Compared with chest radiograph dated 04/28/2025 07:29 EDT, bilateral basilar consolidation with associated mild atelectasis has resolved; mild patchy opacities in both upper lobes and the right paratracheal suprahilar opacity are unchanged; no pleural effusion or pneumothorax is identified. * Mild bilateral upper-lobe opacities, stable???correlate clinically for resolving infection or inflammatory change. * Expiratory acquisition limits assessment of lung volumes and may accentuate vascular crowding. /[facility] DICTATED BY: JOSAFAT DALY MD DATE: 05/01/25207 ELECTRONICALLY SIGNED BY: JOSAFAT DALY MD DATE: 05/01/25207 PATIENT: MARTY BARRON MR#: [id number] : 1990 SEX: M AGE: 35 LOCATION: 2DH ORDER 99 STATUS: ADM IN REPORT#: [id number] SERVICE 0600 REASON: decreased ostomy output ORDERING PHYSICIAN: SARJO MAGDALENO PROCEDURE: ABD 1VW - ABD 1VW ADDENDUM REPORT ADDENDUM: Results were shared by telephone at 06:34 am on 05-01-25 and acknowledged by Patients Nurse Mr.Jose Hanks /[place] EXAM: CR Abdomen, multiple views. CLINICAL HISTORY: Decreased ostomy output. COMPARISON: None provided. FINDINGS: Multiple dilated small bowel loops with multiple air-fluid levels. Large bowel loops are not dilated. Features of small bowel obstruction. Excreted contrast is identified within the urinary bladder. No free air is evident. No abnormal calcification. No aggressive appearing osseous lesion. IMPRESSION: Multiple dilated small bowel loops with multiple air-fluid levels. Large bowel loops are not dilated. The features concerning bowel obstruction or ileus. Recommend a barium follow-through study for further evaluation. /[facility] DICTATED BY: ANTONIO STEINBERG Jr., MD DATE: 05/01/25636 ELECTRONICALLY SIGNED BY: DATE: EXAM: CR Abdomen, multiple views. CLINICAL HISTORY: Decreased ostomy output. COMPARISON: None provided. FINDINGS: Multiple dilated small bowel loops with multiple air-fluid levels. Large bowel loops are not dilated. Features of small bowel obstruction. Excreted contrast is identified within the urinary bladder. No free air is evident. No abnormal calcification. No aggressive appearing osseous lesion. IMPRESSION: Multiple dilated small bowel loops with multiple air-fluid levels. Large bowel loops are not dilated. The features concerning bowel obstruction or ileus. Recommend a barium follow-through study for further evaluation. /[facility] DICTATED BY: ANTONIO STEINBERG Jr., MD DATE: 05/01/25622 ELECTRONICALLY SIGNED BY: ANTONIO STEINBERG Jr., MD DATE: 05/01/25622 PATIENT: MARTY BARRON MR#: [id number] : 1990 SEX: M AGE: 35 LOCATION: 2DH ORDER 9 STATUS: ADM IN [facility] REPORT#: [id number] SERVICE 0307 REASON: Right arm PICC, concern for DVT, swelling, pain, and redness noted ORDERING PHYSICIAN: COOPER STUART FAST BRIM POUNCER PROCEDURE: VENOUS UNI - US VENOUS DOPPLER UNILATERAL ADDENDUM REPORT ADDENDUM: Results were shared by telephone at 14:06 pm on 04-27-25 and acknowledged by Pt Nurse, Ms Georgiana Solomon /[facility] EXAM: ULTRASOUND VENOUS DOPPLER, RIGHT UPPER EXTREMITY Technique: Duplex ultrasound with grayscale imaging, compression maneuvers, color Doppler, and spectral Doppler sampling of the right upper extremity veins. Clinical Information: Right arm peripherally inserted central catheter; swelling, pain, and redness; concern for deep venous thrombosis. Findings: Right axillary vein: Noncompressible with intraluminal echogenic thrombus and absent color Doppler filling, consistent with thrombosis. Right brachial veins: Thrombus present consistent with deep venous thrombosis. Right cephalic vein: Partial (non-occlusive) thrombosis. PICC: Indwelling right upper extremity peripherally inserted central catheter present; catheter-associated thrombosis suspected based on thrombus distribution. Tip location not assessed on this examination. Additional comments: No other specific venous segment findings were provided for review. Impression: * Right upper extremity catheter-associated deep venous thrombosis involving the axillary vein and brachial veins. * Non-occlusive thrombosis of the right cephalic vein (superficial venous thrombosis). * Correlate clinically for pulmonary embolism risk; management typically includes anticoagulation per institutional protocol and assessment of need for PICC removal or exchange depending on clinical requirements. /[place] DICTATED BY: ANTONIO STEINBERG Jr., MD DATE: 04/27/25 1410 ELECTRONICALLY SIGNED BY: DATE: EXAM: ULTRASOUND VENOUS DOPPLER, RIGHT UPPER EXTREMITY Technique: Duplex ultrasound with grayscale imaging, compression maneuvers, color Doppler, and spectral Doppler sampling of the right upper extremity veins. Clinical Information: Right arm peripherally inserted central catheter; swelling, pain, and redness; concern for deep venous thrombosis. Findings: Right axillary vein: Noncompressible with intraluminal echogenic thrombus and absent color Doppler filling, consistent with thrombosis. Right brachial veins: Thrombus present consistent with deep venous thrombosis. Right cephalic vein: Partial (non-occlusive) thrombosis. PICC: Indwelling right upper extremity peripherally inserted central catheter present; catheter-associated thrombosis suspected based on thrombus distribution. Tip location not assessed on this examination. Additional comments: No other specific venous segment findings were provided for review. Impression: * Right upper extremity catheter-associated deep venous thrombosis involving the axillary vein and brachial veins. * Non-occlusive thrombosis of the right cephalic vein (superficial venous thrombosis). * Correlate clinically for pulmonary embolism risk; management typically includes anticoagulation per institutional protocol and assessment of need for PICC removal or exchange depending on clinical requirements. /[place] DICTATED BY: ANTONIO STEINBERG Jr., MD DATE: 04/27/25 1354 ELECTRONICALLY SIGNED BY: ANTONIO STEINBERG Jr., MD DATE: 04/27/25 1354 PATIENT: MARTY BARRON MR#: [id number] : 1990 SEX: M AGE: 35 LOCATION: 2BH ORDER 1441 STATUS: ADM IN REPORT#: [id number] SERVICE 0000 REASON: rule out endocarditis ORDERING PHYSICIAN: SAROJ MAGDALENO PROCEDURE: ECHO CMP - ECHO 2-D COMPLETE APPROVED REPORT EXAM: Two-dimensional and M-mode echocardiogram with Doppler and color Doppler. INDICATION ICD: Rule out endocarditis, rule out clot or pulmonary embolism 2D Dimensions RVDd 3.6 cm LVEF(%) 56.6 (>50%) LVED Vol(simp.) 103.0 mL IVSd 0.9 (0.7-1.1cm) FS(%) 30 % LVES Vol(simp.) 45.0 mL LVDd 4.8 (3.8-5.6cm) LA (2D) 3.3 (1.6-4.0cm) LVEF(%, simp.) 56 % PWd 1.1 (0.7-1.1cm) Ao Root(2D) 3.4 (2.0-3.7cm) LA ESV INDEX (BP) 17.03 mL/m2 IVSs 1.0 cm LVOT diam 2.6 (1.8-2.4cm) LVDs 3.4 (2.5-4.0cm) IVC diam 1.1 cm PWs 1.0 cm Deformation Strain Apical 4 -14.1 % Apical 2 -15.4 % Apical 3 -13.0 % Global Strain -14.2 % M-Mode Dimensions EPSS 0.6 cm LA (MM) 3.8 (1.6-4.0cm) Ao Root(MM) 3.8 (2.0-3.7cm) Aortic Valve AoV Vmax 1.5 m/s Ao Peak GR 9.3 mmHg LVOT Vmax 1.3 m/s AoV VTI 0.2 m Ao Mean GR 5.5 mmHg LVOT VTI 0.18 m AARON (VMAX) 4.54 cm2 AARON (VTI) 4.4 cm2 Mitral Valve MV E Vmax 70.7 cm/s DECEL Time 158 ms MV A Vmax 67.4 cm/s P 1/2 T 46 ms E/A ratio 1.0 MVA (PHT) 4.7 cm2 TDI E/E' Medial 6.3 E/E' Lateral 6.1 Medial E' Peak V 11.25 cm/s Lateral E' Peak V 11.56 cm/s Pulmonary Valve PV Vmax 1.6 m/s PV VTI 0.19 m PV Mean GR 5.0 mmHg PV Peak GR 10.4 mmHg Tricuspid Valve TR Vmax 3.6 m/s RAP (EST) 3 mmHg RVSP 64.1 mmHg TR Peak GR 61.1 mmHg Left Ventricle The left ventricle is normal size. GLS -14.0% There is normal left ventricular wall thickness. LVEF is 50-55%. No left ventricle thrombus noted on this study. The left ventricular diastolic function is normal. Right Ventricle The right ventricle is normal size. The right ventricular systolic function is normal. Atria The left atrium size is normal. There is no mass or thrombus suspected in the left atrium. The right atrium size is normal. There is no mass or thrombus suspected in the right atrium. Aortic Valve The aortic valve is trileafelt normal in structure. No aortic regurgitation is present. No aortic valvular vegetation noted. There is no aortic valvular stenosis. Mitral Valve The mitral valve is normal in structure. There is no mitral valve regurgitation noted. There are no mitral valve vegetation noted. There is no mitral valve stenosis. Tricuspid Valve The tricuspid valve is normal in structure. There is mild tricuspid valve regurgitation noted by color Doppler. RVSP 61mmHg. There is no tricuspid valve vegetation. Pulmonic Valve The pulmonary valve is not well visualized. There is no pulmonic valvular regurgitation. Great Vessels The aortic root is normal in size. The IVC is normal in size and collapses >50% with inspiration. Pericardium There is no pericardial effusion. Other Information Quality : Technically difficult study due to body habitus Rhythm : NSR Conclusion LVEF is 50-55%. No left ventricle thrombus noted on this study. No intracardiac masses No valvular vegetations DICTATED BY: ZELDA MARTINEZ DO DATE: 04/23/25 0923 ELECTRONICALLY SIGNED BY: ZELDA MARTINEZ DO DATE: 04/23/25 1459 PATIENT: MARTY BARRON MR#: [id number] : 1990 SEX: M AGE: 35 LOCATION: 2DH ORDER 230 STATUS: ADM IN REPORT#: [id number] SERVICE 0600 REASON: multiple lung nodules suggestive of mets. recntly diagnosed adenoca colon. ORDERING PHYSICIAN: KRISTIAN MORTON MD PROCEDURE: BXLUNG - CT BX LUNG/MEDIASTINUM NDL IR PERCUTANEOUS CT-GUIDED BIOPSY OF left anterior rib mass: CLINICAL HISTORY: This is a 35 [id number] Male with multiple lesion seen in the lungs there is an expansile mass seen in the left anterior rib for CT-guided biopsy of left anterior rib mass. The risk and benefit was explained to the patient. The risks include infection and possible bleed. The patient consented to the procedure. PROCEDURE: Patient was placed in supine position. Patient was given IV conscious sedation with 2 mg of Versed and 50 MCG of fentanyl.. Under CT guidance left anterior rib lesion was localized. After sterile prep and drapa, using 1% xylocaine for local anesthetic, using a 18-gauge Bard gun, a total of 3 core biopsies were obtained. The specimen was sent for histology and cell block. The patient tolerated the procedure and post-biopsy demonstrated no bleed. There is no evidence of any pneumothorax. IMPRESSION: PERCUTANEOUS CT-GUIDED BIOPSY OF left anterior rib WITH SPECIMENS SENT FOR Histology and cell block.. THE PATIENT TOLERATED PROCEDURE WELL. PATHOLOGY REPORT IS PENDING. If this path report does not demonstrate malignancy I would recommend lung biopsy DICTATED BY: LEXIE NG MD DATE: 04/26/25 1111 ELECTRONICALLY SIGNED BY: LEXIE NG MD DATE: 04/26/25 1116 PATIENT: MATRY BARRON MR#: [id number] : 1990 SEX: M AGE: 35 LOCATION: 2AH ORDER 105 STATUS: ADM IN REPORT#: [id number] SERVICE 1056 REASON: RLQ PAIN ORDERING PHYSICIAN: TITA PETERSON MD PROCEDURE: ABD PEL WO - CT ABDOMEN/PELVIS W/O CONTRAST ADDENDUM REPORT ADDENDUM: Results were shared by telephone at 1:37 pm on 04-22-[address] David Mary /[facility] EXAM: CT Abdomen and Pelvis Without IV contrast CLINICAL HISTORY: RLQ PAIN TECHNIQUE: Axial computed tomography images of the abdomen and pelvis without intravenous contrast. CONTRAST: No IV contrast. COMPARISON: None provided. FINDINGS: LUNG BASES: Multiple randomly distributed nodules in both lungs, the largest measuring 2.1 x 1.6 cm in the medial basal segment of the right lower lobe. Patchy areas of consolidation in bilateral lower lobes. Ill-defined lytic-sclerotic lesion in the left anterior aspect of the 6th rib. Dependent airway disease along bilateral lower lobes, presumed to represent basal atelectasis. LIVER: Hepatic steatosis. GALLBLADDER AND BILE DUCTS: Post cholecystectomy status. No biliary ductal dilatation is evident. PANCREAS: Unremarkable. SPLEEN: Unremarkable. ADRENAL GLANDS: Bilateral adrenal glands appear diffusely bulky, predominantly on the left side, likely adrenal gland hyperplasia. KIDNEYS, URETERS, AND BLADDER: The kidneys appear within normal limits. There is no hydronephrosis or hydroureter. No urinary calculi are seen. STOMACH AND BOWEL: There is a defect of size 5.6 cm in the left anterior abdominal wall with herniation of the descending colon and small bowel loop. There is dilatation of the herniated bowel loop up to 4.1 cm, consistent with obstruction. Thickened and irregular appearing loop of small bowel in the mid pelvis. Ischemia is not excluded. A contrast-enhanced CT is recommended. PERITONEUM: Trace-free fluid. No free air. LYMPH NODES: No lymphadenopathy is evident. REPRODUCTIVE: Unremarkable as visualized. VASCULATURE: No evidence of abdominal aortic aneurysm. BONES: Lytic lesion in the L4 vertebral body. IMPRESSION: 1. Thickened and irregular appearing loop of small bowel in the mid pelvis. Ischemia is not excluded. A contrast-enhanced CT is recommended. 2. Left anterior abdominal wall hernia with herniation of descending colon and small bowel, with bowel obstruction up to 4.1 cm. 3. Lytic lesion in L4 vertebral body. Left anterior 6th rib lytic-sclerotic lesion. 4. Multiple pulmonary nodules, the largest 2.1 cm in the right lower lobe -suspicious for metastasis. 5. Bilateral adrenal gland hyperplasia, more prominent on the left. Suggest PET-CT for further evaluation. /[place] DICTATED BY: LYNDSEY ENRIQUE MD DATE: 04/22/25 [id number] ELECTRONICALLY SIGNED BY: DATE: EXAM: CT Abdomen and Pelvis Without IV contrast CLINICAL HISTORY: RLQ PAIN TECHNIQUE: Axial computed tomography images of the abdomen and pelvis without intravenous contrast. CONTRAST: No IV contrast. COMPARISON: None provided. FINDINGS: LUNG BASES: Multiple randomly distributed nodules in both lungs, the largest measuring 2.1 x 1.6 cm in the medial basal segment of the right lower lobe. Patchy areas of consolidation in bilateral lower lobes. Ill-defined lytic-sclerotic lesion in the left anterior aspect of the 6th rib. Dependent airway disease along bilateral lower lobes, presumed to represent basal atelectasis. LIVER: Hepatic steatosis. GALLBLADDER AND BILE DUCTS: Post cholecystectomy status. No biliary ductal dilatation is evident. PANCREAS: Unremarkable. SPLEEN: Unremarkable. ADRENAL GLANDS: Bilateral adrenal glands appear diffusely bulky, predominantly on the left side, likely adrenal gland hyperplasia. KIDNEYS, URETERS, AND BLADDER: The kidneys appear within normal limits. There is no hydronephrosis or hydroureter. No urinary calculi are seen. STOMACH AND BOWEL: There is a defect of size 5.6 cm in the left anterior abdominal wall with herniation of the descending colon and small bowel loop. There is dilatation of the herniated bowel loop up to 4.1 cm, consistent with obstruction. Thickened and irregular appearing loop of small bowel in the mid pelvis. Ischemia is not excluded. A contrast-enhanced CT is recommended. PERITONEUM: Trace-free fluid. No free air. LYMPH NODES: No lymphadenopathy is evident. REPRODUCTIVE: Unremarkable as visualized. VASCULATURE: No evidence of abdominal aortic aneurysm. BONES: Lytic lesion in the L4 vertebral body. IMPRESSION: 1. Thickened and irregular appearing loop of small bowel in the mid pelvis. Ischemia is not excluded. A contrast-enhanced CT is recommended. 2. Left anterior abdominal wall hernia with herniation of descending colon and small bowel, with bowel obstruction up to 4.1 cm. 3. Lytic lesion in L4 vertebral body. Left anterior 6th rib lytic-sclerotic lesion. 4. Multiple pulmonary nodules, the largest 2.1 cm in the right lower lobe -suspicious for metastasis. 5. Bilateral adrenal gland hyperplasia, more prominent on the left. Suggest PET-CT for further evaluation. /[place] DICTATED BY: LYNDSEY ENRIQUE MD DATE: 04/22/251332 ELECTRONICALLY SIGNED BY: LYNDSEY ENRIQUE MD DATE: 04/22/251332 ASSESSMENT: Acute on chronic renal failure Severe sepsis with MODS, resolved Leukocytosis Gram-positive cocci bacteremia Status post left rib biopsy by IR on 04/26/2025 New right upper lobe spiculated infiltrative mass measuring 5.4 x 4.6 cm infiltrating mediastinal pleura and albumin in the right main pulmonary artery Bulky mediastinal lymphadenopathy with the largest node measuring 4 cm involving the right paratracheal, prevascular, and subcarinal stations Multiple bilateral spiculated pulmonary nodules consistent with metastatic disease progression Bilateral marked diffuse adrenal enlargement likely metastatic or hyperplastic Left iliac fossa 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 Right upper extremity DVT involving the axillary and brachial veins Small-bowel obstruction Stage IV colorectal cancer with metastatic disease to the lung, pathology consistent with moderately differentiated adenocarcinoma, POA PLAN: Labs, diagnostic, radiologic exams reviewed and interpreted by myself and supervising physician. We have reviewed external records in detail Require close monitoring of renal function and electrolytes Order CBC, CMP, and electrolytes in am BiPAP as necessary, for respiratory distress Monitor blood pressure adjust medication doses as needed Avoid hypotensive episodes May use Dilaudid 0.5 mg IV every 6 hours as needed for severe pain Strict intake, output, and daily weight should be monitored Please renally adjust medications Avoid nephrotoxic and nonsteroidal drugs Avoid contrast if possible Will continue to monitor renal function, anemia, electrolytes Treatment plan discussed with patient Questions were answered We have discussed with the other team physicians in detail about the care plan We will continue to monitor the patient closely ATTESTATION BY PHYSICIAN I have seen and examined the patient. I reviewed the documentation, medical decision making, and treatment plan as noted by the mid-level provider above. I agree with the findings and plan of care. ANAYA CHENEY MD, [facility] May 03, 2025 14:29
--- NOTE | 2025-05-03 16:20 | HMCIMG ---
EXAM: CR Chest, 1 View. CLINICAL HISTORY: decreased ostomy output COMPARISON: 05/01/2025 FINDINGS: LUNGS: Persistent right paratracheal opacity. Right inhomogeneous airspace opacities in the mid and lower zones, stable. Mild pulmonary vascular congestion. PLEURAL SPACES: No evidence of pleural effusion or pneumothorax. MEDIASTINUM: The cardiomediastinal silhouette is within normal limits. BONES: No acute osseous abnormality. IMPRESSION: 1. Stable right paratracheal opacity and right mid and lower zone airspace opacities. 2. Mild pulmonary vascular congestion. /[place]
--- NOTE | 2025-05-03 22:07 | PN ---
INFECTIOUS DISEASE PROGRESS NOTE Date of Service: May 03, 2025 SUBJECTIVE: This is a 35-year-old male patient who was seen and examined at bedside in room 220. Patient is awake, alert and oriented x3. The WBC has trended down to 20.8 today from 23.4 yesterday. Continues on Meropenem, fluconazole, vancomycin and metronidazole. Continues on heparin drip for right upper extremities DVT. Pending the report of the small bowel series. We will continue to monitor patient. PHYSICAL EXAM EYES: Anicteric. Pupils equal and reactive. HENT: No oral thrush seen, moist Oral mucosa. NECK: Supple, no JVD or thyromegaly. LUNGS: Diminished. Oxygen via nasal cannula. CARDIOVASCULAR: S1, S2 regular. No murmur heard. ABDOMEN: Abdomen is large but Soft, bowel sounds present. Left colostomy. CENTRAL NERVOUS SYSTEM: Awake, alert, oriented x 3. SKIN: No rashes, no swelling. LYMPHATICS: No peripheral lymphadenopathy. MUSCULOSKELETAL: Right knee pain. EXTREMITIES: No cyanosis or clubbing. BACK: No deformity, no pressure ulcer. GENITOURINARY: No dysuria or hematuria. Vital Sign (Last 12 Hours) 05/03/25 05/03/25 05/03/25 05/03/25 11:00 11:44 13:07 16:05 Temp 97.7 97.9 97.5 Pulse 76 89 80 Resp 20 20 18 16 B/P (MAP) 113/54 121/42 104/64 Pulse Ox 94 93 90 O2 Delivery Nasal Cannula N/Cannula Low lpm Room Air Room Air O2 Flow Rate 3.0 3.0 FiO2 32 05/03/25 05/03/25 05/03/25 19:19 19:56 20:05 Temp 98.2 Pulse 86 77 Resp 23 18 B/P (MAP) 113/71 Pulse Ox 94 94 O2 Delivery CPAP+ Nasal Cannula O2 Flow Rate 2.0 FiO2 40 21 Intake & Output (last 24hrs) 05/02/25 05/02/25 05/03/25 15:00 23:00 07:00 Intake Total 200.0 ml 1226.0 ml 1495.2 ml Output Total 400 ml 2050 ml 900 ml Balance -200.0 ml -824.0 ml 595.2 ml LABS: Laboratory: Test 05/03/25 03:31 Range/Units White Blood Count 20.8 H 4.8-10.8 K/uL Red Blood Count 3.69 L 4.50-6.20 MIL/uL Hemoglobin 8.6 L 14.0-18.0 g/dL Hematocrit 29.1 L 42-54 % Mean Corpuscular Volume 78.9 L 79-99 fL Mean Corpuscular Hemoglobin 23.3 L 27.0-33.0 pg Mean Corpuscular Hemoglobin Concent 29.6 L 32.0-36.0 g/dL Red Cell Distribution Width 20.8 H 11.0-15.5 % Platelet Count 338 130-400 K/uL Mean Platelet Volume 10.9 H 7.5-10.5 fL Immature Granulocyte % (Auto) 5.2 H 0-1 % Neutrophils (%) (Auto) 84.4 H 40.0-77.0 % Lymphocytes (%) (Auto) 5.3 L 21.0-51.0 % Monocytes (%) (Auto) 4.9 3.0-13.0 % Eosinophils (%) (Auto) 0.0 0.0-8.0 % Basophils (%) (Auto) 0.2 0.0-5.0 % Neutrophils # (Auto) 17.5 H 1.8-7.7 K/uL Lymphocytes # (Auto) 1.1 1.0-4.8 K/uL Monocytes # (Auto) 1.0 0.1-1.0 K/uL Eosinophils # (Auto) 0.00 0.00-0.70 K/uL Basophils # (Auto) 0.04 0.00-0.20 K/uL Absolute Immature Granulocyte (auto 1.08 H 0-1 K/uL Nucleated Red Blood Cells 0.0 0.0-0.19 % Activated Partial Thromboplast Time 49.8 H 26.3-35.5 SEC Sodium Level 138 136-145 mmol/L Potassium Level 3.9 3.5-5.1 mmol/L Chloride Level 102 101-111 mmol/L Carbon Dioxide Level 32 21-32 mmol/L Blood Urea Nitrogen 23 H 7-18 mg/dL Creatinine 0.7 0.5-1.3 mg/dL Glomerular Filtration Rate Calc 123 >90 mL/min Random Glucose 195 H 70-105 mg/dL Total Calcium 8.4 L 8.5-10.1 mg/dL Magnesium Level 2.30 1.80-2.40 mg/dL Total Bilirubin 0.5 0.2-1.0 mg/dL Aspartate Amino Transf (AST/SGOT) 27 10-37 U/L Alanine Aminotransferase (ALT/SGPT) 12 12-78 U/L Alkaline Phosphatase 151 H 50-136 U/L Total Protein 7.4 6.0-8.3 g/dL Albumin 2.0 L 3.5-5.0 g/dL Vancomycin Level Trough 10.3 10.0-20.0 UG/ML ASSESSMENT: Hypoxic respiratory failure, requiring oxygen support. Staphylococcus epidermidis bacteremia, which is a contaminant. Leukocytosis. Right knee osteoarthritis. Bilateral pulmonary nodules consistent with metastatic disease, s/p lung biopsy. Small-bowel obstruction. Acute renal failure, improving. Morbid obesity. Recent Colorectal mass with resection and colostomy creation. Right upper extremity DVT. PLAN: Continue Meropenem. Continue fluconazole.. Continue vancomycin per pharmacy protocol. Continue metronidazole. Continues on heparin drip. Continue oxygen support. Continue GI prophylaxis. Continue pain management. Avoid nephrotoxic medications. Pending a small bowel series report. This case was reviewed and discussed with my supervising physician Dr. Richards and the above assessment and plan was formulated and agreed upon. ATTESTATION BY PHYSICIAN I have seen and examined the patient. I reviewed the documentation, medical decision making, and treatment plan as noted by the mid-level provider above. I agree with the findings and plan of care. JULIANNA RICHARDS MD, [facility] May 03, 2025 22:07
[2025-05-04] VITALS (12 sets, daily range): BP systolic 110–133; BP diastolic 70–90; PULSE 57–72; RESP 17–20; TEMP 97.8–98.8; O2SAT 94–97
[2025-05-04 05:11] LABS: NUCLEATED RED BLOOD CELLS 0.0 % (0.0-0.19); PLATELET COUNT (AUTO) 351.0 K/uL (130-400); RED BLOOD CELL COUNT(AUTO) 3.67 MIL/uL (4.50-6.20); RED CELL DISTRIBUTION WIDTH 21.2 % (11.0-15.5); WHITE BLOOD COUNT (AUTO) 16.8 K/uL (4.8-10.8)
[2025-05-04 05:38] LABS: ASPARTATE AMINOTRANSFERASE 66.0 U/L (10-37); CREATININE 0.7 mg/dL (0.5-1.3); GLOMERULAR FILTR. RATE CALC 123.0 mL/min (>90); GLUCOSE,RANDOM 183.0 mg/dL (70-105); SODIUM SERUM 138.0 mmol/L (136-145); TOTAL PROTEIN, SERUM 7.3 g/dL (6.0-8.3); UREA NITROGEN, BLOOD 32.0 mg/dL (7-18)
--- NOTE | 2025-05-04 10:59 | PN ---
[facility] PROGRESS NOTE Date Patient Seen: May 04, 2025 Time of Visit: 10:49 Supervising Physician: Mack Parada Inpatient Consults: Dr. Nguyen, Dr. Abad, Dr. Henry, Dr. Johnson PROBLEM LIST: Severe sepsis with MODS, resolving Leukocytosis Staphylococcus epidermidis bacteremia, which is a contaminant. Status post left rib biopsy by IR on 04/26/2025 New right upper lobe spiculated infiltrative mass measuring 5.4 x 4.6 cm infiltrating mediastinal pleura and albumin in the right main pulmonary artery Bulky mediastinal lymphadenopathy with the largest node measuring 4 cm involving the right paratracheal, prevascular, and subcarinal stations Multiple bilateral spiculated pulmonary nodules consistent with metastatic d isease progression (+) adenocarcinoma Stage IV Colorectal cancer with metastatic disease to the lung Bilateral marked diffuse adrenal enlargement likely metastatic or hyperplastic Left iliac fossa 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 deep venous thrombosis involving the right axillary vein and brachial veins INTERVAL HISTORY: 05/01 - Patient seen and examined, all labs and imaging have been reviewed, patient is awake alert and oriented, nursing reports no acute events overnight. Patient is afebrile, vital signs are stable, good sats on nasal cannula 2 L Patient continues on the cefepime, vanc and Flagyl, the last blood cultures positive for from the blood, staph on 04/21 Sputum is pending He continues on duo nebs He is on Lasix 20 mg and we have 520 of urine out in 12 hours Chest x-ray is pending 05/02 - Patient is seen and examined at the bedside. Pt is laying in bed resting quietly accompanied by his mom and other family members. Patient appears to be weak, deconditioned, and hypoxemic requiring 2 L via N/C. Patient continues utilizing Bipap nightly. Pt reports he uses a Cpap at home nightly. Patient continues on multiple broad spectrum antibiotics which are being managed by Dr Nguyen. Most recent cxray shows resolving left upper lung infiltrate. White count slowly trending down. Biopsy results are still pending. Patient continues on heparin drip for DVT. PT was evaluated by Dr Johnson and depending on Lung nodule biopsy results, will plan for genetic phenotyping for targeted therapy if feasible. Pt had a KUB performed which shows partial small bowel obstruction. As per nursing, surgery team has been made aware. Will continue to follow closely. 05/03 - Patient was seen and examined, patient is sitting at the side of the bed. Patient is just back from his small bowel pass through. He states that he has had numerous loose stools and is passing gas. He is hoping to resume his diet shortly. We are waiting on surgery's recommendations Patient is awake alert and oriented reporting no pain or discomfort Good saturations on room air His vital signs are stable We ordered new cultures he continues on Merrem fluconazole and vancomycin 05/04 - patient is seen in the evaluated at the bedside. Patient is sitting up in bed accompanied by his mom. Patient appears to be weak, deconditioned and hypoxemic currently requiring2 L via nasal cannula. Patient continues using a CPAP nightly. Patient remains NPO as suspected small bowel obstruction. Patient had a small bowel series and currently pending official results. Patient does report continues with large watery stools. Patient reports he is hungry in hope to resume his diet soon. Follow surgery recommendations. As per Dr. Johnson's note, patient has stage IV colorectal cancer with metastatic disease to the lungs. Pathology is consistent with moderately differentiated adenocarcinoma. Patient is advised on the importance of getting up out of bed and attempting to work with physical therapy as tolerated. Prognosis remains guarded. Patient continues on broad-spectrum antibiotics per Infectious Disease. White count trending down. PLAN Supplemental oxygen as needed Wean off as tolerated Continue CPAP nightly and p.r.n. Keep NPO for now Follow surgical team recs Pending GI series results Continue antibiotics as per Infectious Disease Follow up Dr. Johnson recommendations I&Os new lines following surgical recs, we will follow small bowel pass through, surgery for any resumption in diet REVIEW OF SYSTEMS: 12 point ROS reviewed with patient. Pertinent positives mentioned above. Otherwise negative. PHYSICAL EXAM: GENERAL: alert, obese, weak, awake oriented x 3 HEENT: EOMI, Sclera non icteric, moist mucosa NC NECK: Supple, no JVD, trachea midline LUNGS: Diminished breath sounds bilaterally. No wheezes HEART: Normal rate and rhythm. Normal S1 and S2, without murmurs ABD: morbidly obese Abdomen soft, nontender. Bowel sounds hypoactive EXT: No clubbing cyanosis or edema NEURO: Alert and oriented to person, follows commands Vital Signs (last 8hr) Date Time Temp Pulse Resp B/P (MAP) Pulse Ox O2 Delivery O2 Flow Rate FiO2 05/04/25 07:35 98.1 67 17 116/75 97 Nasal Cannula 2.0 05/04/25 06:49 68 20 N/Cannula Low lpm 3.0 32 05/04/25 04:05 96 Nasal Cannula* 3 32 05/04/25 04:00 97.9 57 18 112/70 96 Nasal Cannula 3.0 28 LABS: Hematology Labs: Test 05/04/25 05:03 05/03/25 03:31 Range/Units White Blood Count 16.8 H 4.8-10.8 K/uL Red Blood Count 3.67 L 4.50-6.20 MIL/uL Hemoglobin 8.8 L 14.0-18.0 g/dL Hematocrit 29.4 L 42-54 % Mean Corpuscular Volume 80.1 79-99 fL Mean Corpuscular Hemoglobin 24.0 L 27.0-33.0 pg Mean Corpuscular Hemoglobin Concent 29.9 L 32.0-36.0 g/dL Red Cell Distribution Width 21.2 H 11.0-15.5 % Platelet Count 351 130-400 K/uL Mean Platelet Volume 10.9 H 7.5-10.5 fL Nucleated Red Blood Cells 0.0 0.0-0.19 % Immature Granulocyte % (Auto) 5.2 H 0-1 % Neutrophils (%) (Auto) 84.4 H 40.0-77.0 % Lymphocytes (%) (Auto) 5.3 L 21.0-51.0 % Monocytes (%) (Auto) 4.9 3.0-13.0 % Eosinophils (%) (Auto) 0.0 0.0-8.0 % Basophils (%) (Auto) 0.2 0.0-5.0 % Neutrophils # (Auto) 17.5 H 1.8-7.7 K/uL Lymphocytes # (Auto) 1.1 1.0-4.8 K/uL Monocytes # (Auto) 1.0 0.1-1.0 K/uL Eosinophils # (Auto) 0.00 0.00-0.70 K/uL Basophils # (Auto) 0.04 0.00-0.20 K/uL Absolute Immature Granulocyte (auto 1.08 H 0-1 K/uL Chemistry Labs: Test 05/04/25 05:03 Range/Units Sodium Level 138 136-145 mmol/L Potassium Level 4.2 3.5-5.1 mmol/L Chloride Level 102 101-111 mmol/L Carbon Dioxide Level 32 21-32 mmol/L Blood Urea Nitrogen 32 H 7-18 mg/dL Creatinine 0.7 0.5-1.3 mg/dL Glomerular Filtration Rate Calc 123 >90 mL/min Random Glucose 183 H 70-105 mg/dL Total Calcium 8.4 L 8.5-10.1 mg/dL Magnesium Level 2.50 H 1.80-2.40 mg/dL Total Bilirubin 0.6 0.2-1.0 mg/dL Aspartate Amino Transf (AST/SGOT) 66 H 10-37 U/L Alanine Aminotransferase (ALT/SGPT) 35 12-78 U/L Alkaline Phosphatase 154 H 50-136 U/L Total Protein 7.3 6.0-8.3 g/dL Albumin 2.1 L 3.5-5.0 g/dL Coagulation Labs: Test 05/04/25 05:03 Range/Units Activated Partial Thromboplast Time 54.7 H 26.3-35.5 SEC DIAGNOSTICS / RADIOLOGY RESULTS: PATIENT: MARTY BARRON MR#: [id number] : 1990 SEX: M AGE: 35 LOCATION: [facility] ORDER 2300 STATUS: ADM IN REPORT#: [id number] SERVICE 0600 REASON: decreased ostomy output ORDERING PHYSICIAN: SAROJ MAGDALENO PROCEDURE: CXR1VW - CHEST 1VW EXAM: CR Chest, 1 View. CLINICAL HISTORY: decreased ostomy output COMPARISON: 05/01/2025 FINDINGS: LUNGS: Persistent right paratracheal opacity. Right inhomogeneous airspace opacities in the mid and lower zones, stable. Mild pulmonary vascular congestion. PLEURAL SPACES: No evidence of pleural effusion or pneumothorax. MEDIASTINUM: The cardiomediastinal silhouette is within normal limits. BONES: No acute osseous abnormality. IMPRESSION: 1. Stable right paratracheal opacity and right mid and lower zone airspace opacities. 2. Mild pulmonary vascular congestion. /[place] DICTATED BY: LYNDSEY ENRIQUE MD DATE: 05/03/251719 ELECTRONICALLY SIGNED BY: LYNDSEY ENRIQUE MD DATE: 05/03/251719 PLAN NEURO: Minimize central acting medications as possible. Maintain fall precautions, adequate lighting during the day PULMONARY: Supplemental 02 as needed. Maintain aspiration precautions at all times CARDIOVASCULAR: Follow hemodynamics. Vital signs per facility protocol GI & NUTRITION: Continue with nutritional support. Continue stool softeners and laxatives as needed. KIDNEYS & ELECTROLYTES: Strict monitoring of intake, output and overall fluid balance. Avoid nephrotoxic medications to the extent possible. Medications to be dosed according to renal function. Monitor electrolytes and replace as needed ENDOCRINE: Maintain blood glucose between 100-180 at all times. Hypoglycemia protocol in place INFECTIOUS DISEASE: Trend temperature, WBC and procalcitonin level Follow cultures, deescalate antibiotics as soon as possible. Panculture if new onset fever ONCOLOGY/HEMATOLOGY/COAGULATION: Monitor for s/s of bleeding Monitor hemoglobin, coagulation studies as needed SKIN: Pressure ulcer prevention per facility protocol Specialty mattress ORTHO/REHAB: Continue PT/OT Prophylaxis: Continue GI and DVT prophylaxis Code Status: Full Resuscitation Disposition: Per primary team Total critical Care time spent on case 40 minutes. ATTESTATION BY PHYSICIAN I attest that I reviewed and discussed the case with the Physician Environmental Engineer as well as agree with the Physician Environmental Engineer's findings, plans of care, and documentation above. Karel Johnson MD, [facility] May 04, 2025 10:59
--- NOTE | 2025-05-04 12:31 | PN ---
35 year old morbidly obese male with a past medical history of Colon mass s/p resection with colostomy placement diagnosed with small bowel obstruction ,severe sepsis and multisystem dysfunction .CT chest/Abdomen/Pelvis revealed Left iliac fossa Spigelian hernia containing small and large bowel with mechanical small bowel obstruction.New right upper lobe spiculated infiltrative mass measuring 5.4 x 4.6 cm infiltrating mediastinal pleura and albumin in the right main pulmonary artery , Bulky mediastinal lymphadenopathy with the largest node measuring 4 cm involving the right paratracheal, prevascular, and subcarinal stations and Multiple bilateral spiculated pulmonary nodules consistent with metastatic disease progression was also seen. Patient with significant failure to thrive. It seems the patient also have infection. White blood count continue to be high at 26.5 K. This patient look like you have possible partial bowel obstruction. Patient was started on Reglan and dexamethasone. With the patient actually started having bowel movement. Small bowel x-ray was done Biopsy from the lung consistent with adenocarcinoma. PHYSICAL EXAM EYES: Anicteric. Pupils equal and reactive. HENT: No oral thrush seen, moist Oral mucosa NECK: Supple, no JVD or thyromegaly. LUNGS: Good air entry. No rales, no rhonchi. CARDIOVASCULAR: S1, S2 regular. No murmur heard. ABDOMEN: Soft, non tender, bowel sounds present, no organomegaly CENTRAL NERVOUS SYSTEM: Awake, alert, oriented x 3. No focal deficits. SKIN: No rashes, no swelling. LYMPHATICS: No peripheral lymphadenopathy MUSCULOSKELETAL: No joint swelling, erythema or tenderness. EXTREMITIES: No cyanosis or clubbing BACK: No deformity, no pressure ulcer. 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 Failure to thrive 6. Leukocytosis with white blood count 21.5 K 7. Anemia with hemoglobin level 9.5 g/deciliter 8. Possible partial bowel obstruction. Small bowel x-ray was done PLAN 1.Pathology report from rectal mass biopsy - moderately differentiated adenocarcinoma . The nodule from the lung with biopsy consistent with adenocarcinoma so this patient have stage IV Colorectal cancer with metastatic disease to the lung 2.Peripheral bloood smear shows microcytic hypochromic anemia consistent with iron deficiency anemia . There is teardrop cell, pelger huet cell and rouleaux formation .Increased number of WBCs observed with neutrophilia and hypersegmented neutrophils suggestive of underlying infection . Band cells observed. Platelet morphology and count within normal limits . 3. This patient with significant failure to thrive. With the patient cannot sit on the side of the bed. I tried to explain to him and to the family that he need to start walking and exercise as a cannot treat him with palliative chemo. 4. This patient with significant failure to thrive. This patient will need case management to help for physical therapy and possibly placement 5. Physical therapy for evaluation and treatment. 6. This patient with partial bowel obstruction. This patient To continue Reglan 10 mg Q6. Patient also to receive dexamethasone 10 mg IV once daily. If the patient had partial response this patient could be respond. But if the patient have complete obstruction then this patient could start have nausea vomiting Small bowel x-ray was done. We will follow-up with the result closely. Vitals/Labs Vital Signs Date Time Temp Pulse Resp B/P (MAP) Pulse Ox O2 Delivery O2 Flow Rate FiO2 05/04/25 11:05 98.1 66 17 133/90 96 Nasal Cannula 2.0 05/04/25 06:49 32 Laboratory Tests 05/04/25 05:03 Medications Current Medications Ketorolac Tromethamine 30 mg ONCE ONCE IM Last administered on 04/19/25at 20:26; Start 04/19/25 at 20:00; Stop 04/19/25 at 20:01; Status DC Acetaminophen 1,000 mg ONCE ONCE PO Last administered on 04/19/25at 20:53; Start 04/19/25 at 20:30; Stop 04/19/25 at 20:34; Status DC Lidocaine 1 each ONCE ONCE TP Last administered on 04/19/25at 20:52; Start 04/19/25 at 20:30; Stop 04/19/25 at 20:34; Status DC Acetaminophen 650 mg Q6H PRN PO Last administered on 04/21/25at 02:20; Start 04/19/25 at 22:00; Stop 05/19/25 at 21:59 Enoxaparin Sodium 40 mg DAILY SQ Last administered on 04/22/25at 08:14; Start 04/20/25 at 09:00; Stop 04/22/25 at 20:00; Status DC Famotidine 20 mg DAILY PO Last administered on 04/30/25at 09:23; Start 04/20/25 at 09:00; Stop 05/02/25 at 12:03; Status DC Hydralazine HCl 10 mg Q6H PRN IV; Start 04/19/25 at 22:00; Stop 04/20/25 at 10:52; Status DC Lactated Ringer's 1,000 ml @ 100 mls/hr Q10H IV Last administered on 04/21/25at 12:40; Start 04/19/25 at 22:00; Stop 04/20/25 at 10:52; Status DC Lactulose 20 gm BID PRN PO; Start 04/19/25 at 22:00; Stop 04/29/25 at 19:41; Status DC Morphine Sulfate 4 mg Q4H PRN IVP; Start 04/19/25 at 22:00; Stop 04/20/25 at 10:52; Status DC Ondansetron HCl 4 mg Q6H PRN IV Last administered on 04/24/25at 22:19; Start 04/19/25 at 22:00; Stop 05/19/25 at 21:59 Ceftriaxone Sodium 1 gm Q24H IVPB Last administered on 04/22/25at 10:53; Start 04/20/25 at 10:00; Stop 04/22/25 at 12:41; Status DC Hydralazine HCl 5 mg Q6H PRN IV; Start 04/20/25 at 16:00; Stop 05/20/25 at 15:59 Ketorolac Tromethamine 15 mg Q6H PRN IV Last administered on 04/20/25at 22:08; Start 04/20/25 at 11:00; Stop 04/22/25 at 19:58; Status DC Lidocaine 1 each DAILY TP Last administered on 05/04/25at 08:15; Start 04/21/25 at 09:00; Stop 05/21/25 at 08:59 Magnesium Sulfate 50 ml @ 0 mls/hr PROTOCOL IV Last administered on 04/24/25at 06:11; Start 04/21/25 at 08:30; Stop 05/21/25 at 08:29 Potassium Chloride 40 meq ONCE ONCE PO Last administered on 04/21/25at 12:06; Start 04/21/25 at 08:30; Stop 04/21/25 at 08:31; Status DC Doxycycline Hyclate 250 ml @ 125 mls/hr Q12H IV Last administered on 04/22/25at 08:14; Start 04/21/25 at 08:30; Stop 04/22/25 at 12:41; Status DC Lactated Ringer's 1,000 ml @ 50 mls/hr Q20H IV Last administered on 04/24/25at 02:58; Start 04/21/25 at 12:30; Stop 04/25/25 at 07:47; Status DC Gadoterate Meglumine 10 mmol STK-MED ONCE IV; Start 04/21/25 at 13:44; Stop 04/21/25 at 13:44; Status DC Promethazine HCl 12.5 mg Q8H5 PRN IM Last administered on 04/22/25at 12:25; Start 04/22/25 at 12:30; Stop 05/22/25 at 12:29 Cefepime HCl 2 gm Q8H IVPB Last administered on 04/30/25at 04:27; Start 04/22/25 at 13:00; Stop 04/30/25 at 13:07; Status DC Metronidazole/ Sodium Chloride 100 ml @ 100 mls/hr Q8H6 IVPB Last administered on 05/02/25at 09:55; Start 04/22/25 at 14:00; Stop 05/02/25 at 13:59; Status DC Sodium Chloride 500 ml @ 0 mls/hr Q0M STAT IV Last administered on 04/22/25at 14:39; Start 04/22/25 at 13:17; Stop 04/22/25 at 13:22; Status DC Diatrizoate Meglum/ Diatrizoate Sod 30 ml STK-MED ONCE .ROUTE; Start 04/22/25 at 13:38; Stop 04/22/25 at 13:38; Status DC Vancomycin HCl 1 each AD IV; Start 04/22/25 at 15:00; Stop 04/23/25 at 22:23; Status DC Vancomycin HCl 500 ml @ 166.667 mls/hr ONCE ONCE IV Last administered on 04/22/25at 15:10; Start 04/22/25 at 15:00; Stop 04/22/25 at 17:59; Status DC Iohexol 75 ml STK-MED ONCE IV; Start 04/22/25 at 15:29; Stop 04/22/25 at 15:29; Status DC Hydromorphone HCl 0.5 mg Q4H PRN IVP; Start 04/22/25 at 20:00; Stop 04/27/25 at 19:59; Status DC Enoxaparin Sodium 40 mg Q12H SQ Last administered on 04/27/25at 08:10; Start 04/22/25 at 21:00; Stop 04/27/25 at 13:24; Status DC Labetalol HCl 10 mg ONCE ONCE IV Last administered on 04/23/25at 00:10; Start 04/23/25 at 00:00; Stop 04/23/25 at 00:02; Status DC Labetalol HCl 10 mg Q6H PRN IV; Start 04/23/25 at 00:00; Stop 05/23/25 at 00:00 Vancomycin HCl 250 ml @ 125 mls/hr ONCE ONCE IV Last administered on 04/23/25at 17:55; Start 04/23/25 at 18:00; Stop 04/23/25 at 22:23; Status DC Promethazine HCl 25 mg ONCE ONCE IM Last administered on 04/24/25at 00:59; Start 04/24/25 at 01:00; Stop 04/24/25 at 01:01; Status DC Furosemide 20 mg Q8H IV Last administered on 04/25/25at 03:06; Start 04/24/25 at 19:00; Stop 04/25/25 at 03:01; Status DC Dextrose 1,000 ml @ 50 mls/hr Q20H IV Last administered on 04/25/25at 10:38; Start 04/25/25 at 08:00; Stop 04/25/25 at 16:53; Status DC Iron Sucrose 200 mg DAILY IV Last administered on 04/28/25at 09:20; Start 04/26/25 at 09:00; Stop 04/28/25 at 11:00; Status DC Midazolam HCl 2 mg STK-MED ONCE .ROUTE Last administered on 04/26/25at 10:08; Start 04/26/25 at 09:01; Stop 04/26/25 at 09:01; Status DC Fentanyl Citrate 100 mcg STK-MED ONCE .ROUTE Last administered on 04/26/25at 10:06; Start 04/26/25 at 09:01; Stop 04/26/25 at 09:01; Status DC Nystatin 1 APPLICATION BID TP Last administered on 05/04/25at 08:19; Start 04/26/25 at 14:00; Stop 05/26/25 at 13:59 Heparin Sodium (Porcine) *calculation based on ACTUAL B... AD PRN IV; Start 04/27/25 at 14:00; Stop 05/27/25 at 13:59 Heparin Sodium/ Dextrose 250 ml @ 0 mls/hr Q6H IV Last administered on 05/04/25at 12:27; Start 04/27/25 at 14:00; Stop 05/27/25 at 13:59 Heparin Sodium (Porcine) 10,000 unit ONCE ONCE IV Last administered on 04/27/25at 15:53; Start 04/27/25 at 15:30; Stop 04/27/25 at 15:37; Status DC Ipratropium Green 0.5 MG Q6H PRN IH Last administered on 04/29/25at 11:10; Start 04/28/25 at 19:30; Stop 05/28/25 at 19:29 Furosemide 20 mg Q12H IV Last administered on 05/04/25at 12:17; Start 04/29/25 at 11:00; Stop 05/29/25 at 10:59 Vancomycin HCl 1 each AD IV; Start 04/29/25 at 11:00; Stop 05/13/25 at 10:59 Sodium Chloride 4 ml STK-MED ONCE IH Last administered on 04/29/25at 11:10; Start 04/29/25 at 10:49; Stop 04/29/25 at 10:49; Status DC Vancomycin HCl 500 ml @ 250 mls/hr ONCE ONCE IV Last administered on 04/29/25at 11:08; Start 04/29/25 at 11:00; Stop 04/29/25 at 12:59; Status DC Vancomycin HCl 250 ml @ 125 mls/hr Q8H IV Last administered on 04/30/25at 05:52; Start 04/29/25 at 21:00; Stop 04/30/25 at 14:25; Status DC Sodium Chloride 4 ml STK-MED ONCE IH Last administered on 04/29/25at 19:35; Start 04/29/25 at 18:29; Stop 04/29/25 at 18:29; Status DC Lactulose 20 gm ACHS PRN PO Last administered on 04/30/25at 09:33; Start 04/29/25 at 20:00; Stop 04/30/25 at 13:06; Status DC Sodium Chloride 4 ml STK-MED ONCE IH; Start 04/30/25 at 06:13; Stop 04/30/25 at 06:14; Status DC Ketorolac Tromethamine 15 mg Q6H PRN IM Last administered on 05/03/25at 14:33; Start 04/30/25 at 11:30; Stop 05/05/25 at 11:29 Magnesium Citrate 296 ml ONCE ONCE PO Last administered on 04/30/25at 13:19; Start 04/30/25 at 13:00; Stop 04/30/25 at 13:06; Status DC Lactulose 20 gm Q6HWA PRN PO; Start 04/30/25 at 13:00; Stop 05/30/25 at 12:59 Cefepime HCl 2 gm Q8H IVPB Last administered on 05/01/25at 00:34; Start 04/30/25 at 16:00; Stop 05/01/25 at 12:05; Status DC Vancomycin HCl 250 ml @ 125 mls/hr Q24H IV Last administered on 05/04/25at 04:49; Start 05/01/25 at 05:00; Stop 05/11/25 at 04:59 Fluconazole 200 mg Q24H PO; Start 05/01/25 at 12:30; Stop 05/02/25 at 12:03; Status DC Pharmacy Profile Note 1 each ONCE MISC; Start 05/01/25 at 12:30; Stop 05/01/25 at 12:11; Status DC Meropenem 1 gm Q8H IVPB Last administered on 05/02/25at 04:15; Start 05/01/25 at 12:30; Stop 05/02/25 at 12:29; Status DC Metoclopramide HCl 10 mg Q6H6 IVP Last administered on 05/04/25at 12:18; Start 05/01/25 at 18:00; Stop 05/31/25 at 17:59 Dexamethasone Sodium Phosphate 10 mg Q24H IV Last administered on 05/01/25at 17:22; Start 05/01/25 at 17:00; Stop 05/02/25 at 09:13; Status DC Potassium Chloride 100 ml @ 100 mls/hr PROTOCOL PRN IV Last administered on 05/01/25at 22:29; Start 05/01/25 at 21:00; Stop 05/31/25 at 20:59 Amino Acids/ Electrolytes/ Dextrose 2,000 ml @ 83.333 mls/ hr ONCE ONCE IV Last administered on 05/02/25at 02:00; Start 05/02/25 at 02:00; Stop 05/02/25 at 17:17; Status DC Sodium Chloride 4 ml STK-MED ONCE IH; Start 05/02/25 at 06:07; Stop 05/02/25 at 07:04; Status DC Diatrizoate Meglum/ Diatrizoate Sod 30 ml STK-MED ONCE .ROUTE; Start 05/02/25 at 08:03; Stop 05/02/25 at 08:03; Status DC Dexamethasone Sodium Phosphate 10 mg Q24H IV Last administered on 05/03/25at 17:33; Start 05/02/25 at 17:00; Stop 05/31/25 at 16:59 Fluconazole/ Sodium Chloride 200 mg Q24H IVPB Last administered on 05/04/25at 12:18; Start 05/02/25 at 12:00; Stop 06/01/25 at 11:59 Famotidine 20 mg BID IV Last administered on 05/04/25at 08:15; Start 05/02/25 at 21:00; Stop 06/01/25 at 20:59 Amino Acids/ Electrolytes/ Dextrose 2,000 ml @ 83 mls/hr ONCE ONCE IV Last administered on 05/03/25at 02:46; Start 05/03/25 at 02:00; Stop 05/04/25 at 02:05; Status DC Benzonatate 100 mg Q8H PRN PO Last administered on 05/03/25at 11:32; Start 05/03/25 at 11:00; Stop 06/02/25 at 10:59 JANETTE GEE MD May 04, 2025 12:31
--- NOTE | 2025-05-04 13:54 | PN ---
[facility] PROGRESS NOTE Date of Service: May 04, 2025 Time of Service: 13:52 SUBJECTIVE: 04/20 the patient has been seen and examined at bedside, case discussed with the RN, no acute events overnight, the time of my visit, the patient is awake, following commands, blood pressure 140/90, afebrile, saturating normal on room air. The patient is morbidly obese, he uses a CPAP at home, currently CPAP at bedside during my visit. WBC 14.0, hemoglobin 10.4, hematocrit 34.8, platelet count of 305. CMP shows sodium 141, potassium 3.5, BUN 70, creatinine 0.9, iron level of 25. X-ray of the knee showing moderate to severe three, power mental right knee osteoarthritis, predominantly in the lateral compartment, with small joint effusion. No acute fracture. Orthopedic physician consultation requested, we will follow input and recommendation. MRI of the right knee requested, however due to morbid obesity, might not be able to do it. Discussed with the mother is at the bedside, all questions answered, in agreement. 04/21 patient has been seen and examined at bedside, case discussed with the RN, no acute events overnight, the time my visit he is awake, following commands, admits mild dry nonproductive cough, spiked fever 102.6. Denied chest pain, shortness shortness for breath, no nausea, no vomiting, no abdominal discomfort. The patient has a colostomy bag, on examination, liquid stool noted. WBC slowly trending down at 12.7, hemoglobin stable 11.6. Magnesium 1.7. Added doxycycline 100 mg IV q.12 hours. Follow serology to include SARS antigen, influenza and rapid strep. We will give magnesium sulfate 2 g IV x1. We will order GI stool panel. Patient is scheduled for MRI to the right knee today, continue lidocaine patch, discussed with the orthopedic physician today, we will follow input and recommendation. 04/22 patient is seen and examined at bedside, discussed with the RN. Patient currently feels nauseated. He admits mild discomfort to the right lower quadrant. BP 135/77, mildly tachycardic at 108, saturating normal on room air. Maximum temperature last 24 hours 102.7. CBC shows a hemoglobin of 11.6, hematocrit 35.7, platelet count of 276, with a platelet count of 23.8. Creatinine 2.1. MRI of the right knee shows tricompartmental osteoarthritis with osteophytosis and diffuse cartilage loss, medial and lateral meniscal with complex degenerative tear involving posterior horns and bodies, meniscal tear severity grade 3, full-thickness chondral defect of the lateral femoral condyle, with a underlying subchondral edema, small reactive joint effusion with mild synovitis. We will upgraded the patient to the PCU, LR at 50 mL/hours, follow repeat CBC, CMP and magnesium level. Continue Rocephin and doxycycline IV. We will order a CT of the abdomen and pelvis without contrast to rule out intra- abdominal acute pathology. Orthopedic input noted and appreciated, patient with bad arthritis, we will finally benefit from knee replacement, however considering his morbid obesity, it is not indicated right now. Recommended con servative approach. Mother at bedside, all questions answered, updated, in agreement with plan of care. 04/23 patient is seen and examined at bedside, discussed with the RN, no acute events overnight, patient upgraded to the ICU yesterday due to sepsis and developing small bowel obstruction. Today the patient is awake, following commands, he is NPO, NG tube to intermittent suction, BP 120/76, heart rate of 111, saturating 96% 3 L nasal cannula, temperature 98.4. WBC of 27.6, hemoglobin 10.6, hematocrit 35.5, platelet count 240, creatinine improved to 1.2. Septic workup with blood culture positive for Staphylococcus epidermidis. Echocardiogram and chest x-ray pending. Patient will remain admitted to the ICU, continue broad-spectrum IV antibiotics, we will follow surgical input recommendation. Continue to follow critical Care and ID input and recommendation. And we will update the mother regarding results of CT of the abdomen pelvis and further plan of care when she is present in the room. CT abdomen and pelvis reviewed, as follows: * Patient is undergoing mass evaluation. * Interval progression since 22 April 2025 with a new right upper lobe spiculated infiltrative mass measuring 5.4 ??? 4.6 cm infiltrating mediastinal pleura and abutting the right main pulmonary artery. * Bulky mediastinal lymphadenopathy with largest node measuring 4 cm, involving right paratracheal, prevascular, precarinal, and subcarinal stations, increased since prior study. * Multiple bilateral spiculated pulmonary nodules (1???2.5 cm), consistent with metastatic disease progression. * Bilateral marked diffuse adrenal enlargement (Right 5.9 ??? 3.6 cm, Left 7.6 ??? 5.4 cm), likely metastatic or hyperplastic. 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 * Degenerative thoracolumbar spondylosis with L4 vertebral body wedging (30???40% height loss), unchanged. * Comparison is made with the exam dated 22 April 2025. Overall findings indicate worsening metastatic disease with new primary and gloria lesions and mechanical bowel obstruction requiring clinical and surgical correlation. Recommendations include oncologic evaluation and PET-CT staging, alongside urgent surgical consultation for bowel obstruction. 04/24 patient is seen and examined at bedside, discussed with the RN, no acute events overnight, patient downgraded from the ICU to the PCU, he remains NPO, NG tube connected to intermittent suction, output in the last 12 hours 200 mL. BP 146/150, heart rate of 101, afebrile, saturating 96-97% on nasal cannula. CBC shows a hemoglobin of 9.9, hematocrit 33.5, platelet count of 235, with WBC of 21.3. CMP with sodium 146, potassium 3.8, BUN of 18, creatinine 0.9, magnesium 1.8. Blood culture 04/21/2025 positive for Staphylococcus epidermidis. Repeat blood cultures 04/23/2025 no growth after 24 hours echocardiogram 04/23/2025 LVEF 50-55%, no left ventricle thrombus, no intracardiac masses, no valvular vegetations. Today chest x-ray pending. Patient will remain admitted to the PCU, NPO, intermittent suction, continue to follow surgical input recommendation, continue broad-spectrum IV antibiotics, follow WBC in a.m.. Follow KUB. I HAVE CONTACTED THE DEPARTMENT OF MEDICAL RECORDS [facility] [place], SPOKE WITH ZENA AT PHONE NUMBER [phone], I HAVE REQUESTED MEDICAL RECORDS. WE WILL FOLLOW UP. 04/25 patient is seen and examined at bedside, case discussed with the RN, no acute events overnight, he remains comfortably in bed, NPO, NG tube to intermittent suction, he is awake, following commands, BP 128/90, area of 101, afebrile. Still feels distended. On examination colostomy bag, enema output noted. KUB pending. KUB from 04/24/2025 showing markedly dilated small bowel loops up to 5.6 cm, consistent with distal small-bowel obstruction, no pneumoperitoneum, pneumatosis intestinalis or portal venous gas. I received medical records from [facility], patient was admitted on 11/19/2024 and discharged 12/08/2024. Areolar in the hospital patient underwent exploratory laparoscopy, laparotomy and creation of transverse loop colostomy 11/28/2024. Patient was evaluated by oncologist Braulio Bell. 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 Per my discussion with the mother, from [facility] the patient was discharged to [facility] to recover and from there he went home. Patient has not had a follow up appointment with the general surgeon or oncologist after that. We have requested Oncology consultation here during this admission. Pathology report from rectal biopsy shows moderately differentiated adenocarcinoma, then new pulmonary nodules and mediastinal lymphadenopathy as per CT scan indicates the possibility of metastatic disease. CEA is [id number]. Req uested pulmonary nodule biopsy by IR. Patient will remain admitted to the PCU, we will continue NG tube to intermittent suction, NPO, TPN, follow surgical input and recommendation. Follow repeat KUB. Mother at bedside, updated, all questions answered. Plan of care discussed with the patient as well, in agreement. 04/26 patient is seen and examined at bedside, discussed with the RN, no acute events overnight, patient is status post CT-guided biopsy of left anterior rib mass, 04/26/2025, tolerated the procedure well. At the time of my visit, he is awake, following commands, denied chest pain, shortness shortness for breath, no nausea, no vomiting. Colostomy bag full of air. No stool or liquid noted. Plan is for the patient to start clear liquid diet and advanced as tolerated. We will follow results of pathology. Continue to follow a.m. labs. Mother at bedside, updated. 04/27 patient is seen and, discussed with the RN, no acute events overnight, alert oriented x3, tolerating clear liquid diet. Passing gas in the colostomy bag but no bowel movement yet. Patient was swollen to the right upper extremity. Doppler showing deep venous thrombosis involving the right axillary vein and brachial veins, nonocclusive thrombosis of the right cephalic vein (superficial venous thrombosis). Correlate clinically for pulmonary embolism risk. Hemoglobin of 10.4, hematocrit 35.9, platelet count of 18.7. Findings of Doppler discussed with the mother, we will start the patient on heparin drip, risks versus benefits discussed, agreed to proceed with the anticoagulation. We will insert midline in the left upper extremity. We will continue to clinically monitor the patient.status post CT-guided biopsy of left anterior rib mass, 04/26/2025, follow up pathology. Continue to follow oncology input and recommendation. 04/28 patient is seen and, discussed with the RN, no acute events overnight, alert oriented x3, remains admitted to the PCU, alert oriented x3 at the time of my visit, tolerating soft diet, passing gas but no BM yet. Doppler showing deep venous thrombosis involving the right axillary vein and brachial veins, nonocclusive thrombosis of the right cephalic vein (superficial venous thr ombosis). Continue heparin drip. Oncology input noted and appreciated. Patient will need Port-A-Cath insertion before discharge home. status post CT- guided biopsy of left anterior rib mass, 04/26/2025, follow up pathology. Continue broad-spectrum IV antibiotics, trend WBC in a.m. per mother at bedside, updated. 04/29/25 The patient continue with Heparin drip given to DVT right axillary vein and brachial vein: will transition to po close to discharged. This patient will need Port-A-Cath insertion before discharge home. This patient need to be clear for Port-A-Cath insertion by infectious disease 04/30/25 patient is lying in bed primary nurse reports no events overnight. Patient we will have IR place Port-A-Cath tomorrow. Patient continues with broad-spectrum antibiotics continues heparin drip transitioned to p.o. post procedure. 05/01 patient is seen and, discussed with the RN, no acute events overnight, alert oriented x3, remains admitted to the PCU, alert oriented x3 at the time of my visit, tolerating soft diet, passing gas but no BM yet. Doppler showing deep venous thrombosis involving the right axillary vein and brachial veins, nonocclusive thrombosis of the right cephalic vein (superficial venous thrombosis). Continue heparin drip. Oncology input noted and appreciated. Patient will need Port-A-Cath insertion before discharge home. IR consultation requested. status post CT-guided biopsy of left anterior rib mass, 04/26/2025, follow up pathology. Continue broad-spectrum IV antibiotics, trend WBC in a.m. per mother at bedside, updated. On physical examination, only small liquid o utput from colostomy bag, no solid stool noted. Discussed with surgery, recommended small-bowel series. Continue to trend WBC in a.m.. Patient may require transfer to higher level of care, we will discuss with case management. 05/02 patient is seen and, discussed with the RN, no acute events overnight, alert oriented x3, remains admitted to the PCU, alert oriented x3 at the time of my visit, tolerating soft diet, passing gas. Colostomy bag on exam looks more full compared to yesterday however not solid stool yet. Discussed with the surgery yesterday, recommended small-bowel series, likely to be completed today, we will follow up. 05/03 patient is seen and examined at bedside, discussed with the RN, no acute events overnight, patient remains comfortably in bed, alert oriented x3, feels hungry, passing gas, liquid stool noted in colostomy bag, still pending to complete small-bowel series. Patient remains on heparin drip, swollen to the right upper extremity almost resolved. Denies pain to the right upper arm. Continue to follow a.m. labs. Oncology input noted and appreciated, biopsy consistent with adenocarcinoma. Patient has stage IV colorectal cancer with metastatic disease to the lung. Peripheral bloood smear shows microcytic hypochromic anemia consistent with iron deficiency anemia . There is teardrop cell, pelger huet cell and rouleaux formation .Increased number of WBCs observed with neutrophilia and hypersegmented neutrophils suggestive of underlying infection . Band cells observed. Platelet morphology and count within normal limits .Discussed with the mother at bedside, all questions answered. In agreement. 05/04 patient is seen and examined at bedside, discussed with the RN, no acute events overnight, patient remains comfortably in bed, alert oriented x3, small- bowel series done 05/02/2025, still pending report. Continue the patient on TPN. Mother at bedside, updated. Follow a.m. labs. REVIEW OF SYSTEMS CONSTITUTIONAL: Denies fevers, chills, or night sweats. No unintentional weight loss reported. NEUROLOGICAL: Denies headache, amaurosis fugax, motor weakness, sensory deficit, vertigo/spinning sensation, gait abnormalities, or tremors. ENT: No hearing loss, otalgia, otorrhea, rhinitis, rhinorrhea, hoarseness, or sore throat. CARDIOVASCULAR: Denies any exertional angina, dyspnea on exertion, orthopnea, paroxysmal nocturnal dyspnea, palpitations, life-threatening arrhythmias, claudication. PULMONARY: Denies any shortness of breath, cough, phlegm/sputum, hemoptysis, pleuritic chest pain. SLEEP: Denies morning headaches, daytime somnolence or napping. Denies difficulty falling asleep, staying asleep, waking from sleep. Denies knowledge of snoring. GASTROINTESTINAL: Denies any type of dysphagia to either liquids or solids. Denies nausea, vomiting, pyrosis, early satiety, abdominal pain, diarrhea, constipation, or changes in stool consistency or caliber. Denies coffee-ground emesis, hematemesis, hematochezia, or melanotic stools. GENITOURINARY: Denies frequency, urgency, nocturia, hematuria or incontinence (Storage/Irritative symptoms.) Low urinary stream, straining to void, urinary intermittency or hesitancy, splitting of the voiding stream, terminal dribbling. ENDOCRINOLOGIC: Denies polyuria, polydipsia, polyphagia or heat/cold intolerances. HEMATOLOGIC: Denies thrombophilia/previous clots, or coagulopathy/bleeding disorders. ONCOLOGIC: Denies personal history of malignancy. DERMATOLOGIC: Denies rashes or pruritus. PSYCHIATRIC: Denies any suicidal or homicidal ideation. Denies hallucinations. PHYSICAL EXAM GENERAL APPEARANCE: Patient awake, following commands, NG tube to intermittent suction. NEUROLOGICAL: Cranial nerves II-XII grossly intact. Motor is 5/5 in bilateral upper and lower extremities proximal to distal. No sensory deficits. HEENT: Face is symmetric. Pupils are equal and reactive. Extraocular movements are intact. NECK: Supple. No JVD. No thyromegaly. No submental, submandibular, pre- /postauricular, occipital or supraclavicular lymphadenopathy. CHEST: Normal chest expansion. No Telemetry. LUNGS: Absence of any rales, rhonchi or any wheezing. CARDIOVASCULAR: Regular. S1 and S2 normal. No appreciable rubs, murmurs or gallops. ABDOMEN: Liquid output colostomy bag noted. : Deferred. No Doe. EXTREMITIES: Mild swelling to the right knee area, lidocaine patch in place. SKIN: No skin breakdown. Vital Signs (last 8hr) Date Time Temp Pulse Resp B/P (MAP) Pulse Ox O2 Delivery O2 Flow Rate FiO2 05/04/25 11:05 98.1 66 17 133/90 96 Nasal Cannula 2.0 05/04/25 07:35 98.1 67 17 116/75 97 Nasal Cannula 2.0 05/04/25 06:49 68 20 N/Cannula Low lpm 3.0 32 LABS: Laboratory: Test 05/04/25 05:03 05/03/25 03:31 Range/Units White Blood Count 16.8 H 4.8-10.8 K/uL Red Blood Count 3.67 L 4.50-6.20 MIL/uL Hemoglobin 8.8 L 14.0-18.0 g/dL Hematocrit 29.4 L 42-54 % Mean Corpuscular Volume 80.1 79-99 fL Mean Corpuscular Hemoglobin 24.0 L 27.0-33.0 pg Mean Corpuscular Hemoglobin Concent 29.9 L 32.0-36.0 g/dL Red Cell Distribution Width 21.2 H 11.0-15.5 % Platelet Count 351 130-400 K/uL Mean Platelet Volume 10.9 H 7.5-10.5 fL Nucleated Red Blood Cells 0.0 0.0-0.19 % Activated Partial Thromboplast Time 54.7 H 26.3-35.5 SEC Sodium Level 138 136-145 mmol/L Potassium Level 4.2 3.5-5.1 mmol/L Chloride Level 102 101-111 mmol/L Carbon Dioxide Level 32 21-32 mmol/L Blood Urea Nitrogen 32 H 7-18 mg/dL Creatinine 0.7 0.5-1.3 mg/dL Glomerular Filtration Rate Calc 123 >90 mL/min Random Glucose 183 H 70-105 mg/dL Total Calcium 8.4 L 8.5-10.1 mg/dL Magnesium Level 2.50 H 1.80-2.40 mg/dL Total Bilirubin 0.6 0.2-1.0 mg/dL Aspartate Amino Transf (AST/SGOT) 66 H 10-37 U/L Alanine Aminotransferase (ALT/SGPT) 35 12-78 U/L Alkaline Phosphatase 154 H 50-136 U/L Total Protein 7.3 6.0-8.3 g/dL Albumin 2.1 L 3.5-5.0 g/dL Immature Granulocyte % (Auto) 5.2 H 0-1 % Neutrophils (%) (Auto) 84.4 H 40.0-77.0 % Lymphocytes (%) (Auto) 5.3 L 21.0-51.0 % Monocytes (%) (Auto) 4.9 3.0-13.0 % Eosinophils (%) (Auto) 0.0 0.0-8.0 % Basophils (%) (Auto) 0.2 0.0-5.0 % Neutrophils # (Auto) 17.5 H 1.8-7.7 K/uL Lymphocytes # (Auto) 1.1 1.0-4.8 K/uL Monocytes # (Auto) 1.0 0.1-1.0 K/uL Eosinophils # (Auto) 0.00 0.00-0.70 K/uL Basophils # (Auto) 0.04 0.00-0.20 K/uL Absolute Immature Granulocyte (auto 1.08 H 0-1 K/uL Vancomycin Level Trough 10.3 10.0-20.0 UG/ML Current Medications Medications (Trade) Dose Ordered Sig/Checo Route PRN Reason Start Time Stop Time Status Last Admin Dose Admin Acetaminophen (TYLenol 325MG TAB) 650 mg Q6H PRN PO FEVER/pain 1-3 04/19/25 22:00 05/19/25 21:59 04/21/25 02:20 650 MG Benzonatate (Tessalon 100mg Caps) 100 mg Q8H PRN PO COUGH 05/03/25 11:00 06/02/25 10:59 05/03/25 11:32 100 MG Cefepime HCl (MAXipime 2 gm vial) 2 gm Q8H IVPB 04/22/25 13:00 04/30/25 13:07 DC 04/30/25 04:27 2 GM Cefepime HCl (MAXipime 2 gm vial) 2 gm Q8H IVPB 04/30/25 16:00 05/01/25 12:05 DC 05/01/25 00:34 2 GM Ceftriaxone Sodium (ROCEphine 1G INJ) 1 gm Q24H IVPB 04/20/25 10:00 04/22/25 12:41 DC 04/22/25 10:53 1 GM Dexamethasone Sodium Phosphate (dexaMETHasone 4MG/ML 1ML VIAL) 10 mg Q24H IV 05/01/25 17:00 05/02/25 09:13 DC 05/01/25 17:22 10 MG Dexamethasone Sodium Phosphate (dexaMETHasone 10MG/ML 1ML VIAL) 10 mg Q24H IV 05/02/25 17:00 05/31/25 16:59 05/03/25 17:33 10 MG Dextrose 1,000 ml @ 50 mls/hr Q20H IV 04/25/25 08:00 04/25/25 16:53 DC 04/25/25 10:38 100 MLS/HR Doxycycline Hyclate 250 ml @ 125 mls/hr Q12H IV 04/21/25 08:30 04/22/25 12:41 DC 04/22/25 08:14 125 MLS/HR Enoxaparin Sodium (Lovenox) 40 mg DAILY SQ 04/20/25 09:00 04/22/25 20:00 DC 04/22/25 08:14 40 MG Enoxaparin Sodium (Lovenox) 40 mg Q12H SQ 04/22/25 21:00 04/27/25 13:24 DC 04/27/25 08:10 40 MG Famotidine (Pepcid 20mg Vial) 20 mg BID IV 05/02/25 21:00 06/01/25 20:59 05/04/25 08:15 20 MG Famotidine (Pepcid 20mg Tab) 20 mg DAILY PO 04/20/25 09:00 05/02/25 12:03 DC 04/30/25 09:23 20 MG Fluconazole (DiFLUCan 100 mg TAB) 200 mg Q24H PO 05/01/25 12:30 05/02/25 12:03 DC Fluconazole/ Sodium Chloride (DiFLUCan 200 MG/ NS 100 ML) 200 mg Q24H IVPB 05/02/25 12:00 06/01/25 11:59 05/04/25 12:18 200 MG Furosemide (LASix 20MG VIAL) 20 mg Q12H IV 04/29/25 11:00 05/29/25 10:59 05/04/25 12:17 20 MG Furosemide (LASix 20MG VIAL) 20 mg Q8H IV 04/24/25 19:00 04/25/25 03:01 DC 04/25/25 03:06 20 MG Heparin Sodium (Porcine) (HEParin 5,000 UNIT VIAL) *calculation based on ACTUAL B... AD PRN IV HEPARIN PROTOCOL 04/27/25 14:00 05/27/25 13:59 Heparin Sodium/ Dextrose 250 ml @ 0 mls/hr Q6H IV 04/27/25 14:00 05/27/25 13:59 05/04/25 12:27 0 MLS/HR Hydralazine HCl (APRESOLine 20MG INJ) 5 mg Q6H PRN IV For:SBP above 160;DBP above 90 04/20/25 16:00 05/20/25 15:59 Hydralazine HCl (APRESOLine 20MG INJ) 10 mg Q6H PRN IV For:SBP above 160;DBP above 90 04/19/25 22:00 04/20/25 10:52 DC Hydromorphone HCl (DiLAUDid 0.5MG INJ) 0.5 mg Q4H PRN IVP SEVERE PAIN (7-10) 04/22/25 20:00 04/27/25 19:59 DC Ipratropium [place] (AtrovENT UD) 0.5 MG Q6H PRN IH SHORTNESS OF BREATH 04/28/25 19:30 05/28/25 19:29 04/29/25 11:10 0.5 MG Iron Sucrose (VenoFER) 200 mg DAILY IV 04/26/25 09:00 04/28/25 11:00 DC 04/28/25 09:20 200 MG Ketorolac Tromethamine (toRADol) 15 mg Q6H PRN IM MODERATE PAIN (4-6) 04/30/25 11:30 05/05/25 11:29 05/03/25 14:33 15 MG Ketorolac Tromethamine (toRADol) 15 mg Q6H PRN IV MODERATE PAIN (4-6) 04/20/25 11:00 04/22/25 19:58 DC 04/20/25 22:08 15 MG Labetalol HCl (TRANdate 20MG SYG) 10 mg Q6H PRN IV SUSTAINED HR >120 04/23/25 00:00 05/23/25 00:00 Lactated Ringer's 1,000 ml @ 50 mls/hr Q20H IV 04/21/25 12:30 04/25/25 07:47 DC 04/24/25 02:58 75 MLS/HR Lactated Ringer's 1,000 ml @ 100 mls/hr Q10H IV 04/19/25 22:00 04/20/25 10:52 DC 04/21/25 12:40 100 MLS/HR Lactulose (Constulose 20gm/ 30ml Udcup) 20 gm ACHS PRN PO CONSTIPATION 04/29/25 20:00 04/30/25 13:06 DC 04/30/25 09:33 20 GM Lactulose (Constulose 20gm/ 30ml Udcup) 20 gm BID PRN PO CONSTIPATION 04/19/25 22:00 04/29/25 19:41 DC Lactulose (Constulose 20gm/ 30ml Udcup) 20 gm Q6HWA PRN PO CONSTIPATION 04/30/25 13:00 05/30/25 12:59 Lidocaine (Lidocaine Patch 4%) 1 each DAILY TP 04/21/25 09:00 05/21/25 08:59 05/04/25 08:15 1 EACH Magnesium Sulfate 50 ml @ 0 mls/hr PROTOCOL IV 04/21/25 08:30 05/21/25 08:29 04/24/25 06:11 25 MLS/HR Meropenem (Merrem 1gm) 1 gm Q8H IVPB 05/01/25 12:30 05/02/25 12:29 DC 05/02/25 04:15 1 GM Metoclopramide HCl (regLAN 10MG IV) 10 mg Q6H6 IVP 05/01/25 18:00 05/31/25 17:59 05/04/25 12:18 10 MG Metronidazole/ Sodium Chloride 100 ml @ 100 mls/hr Q8H6 IVPB 04/22/25 14:00 05/02/25 13:59 DC 05/02/25 09:55 100 MLS/HR Morphine Sulfate (morPHINE 4MG SYG) 4 mg Q4H PRN IVP SEVERE PAIN (7-10) 04/19/25 22:00 04/20/25 10:52 DC Nystatin (NystOP 15 GM POWDER) 1 APPLICATION BID TP 04/26/25 14:00 05/26/25 13:59 05/04/25 08:19 1 APPL Ondansetron HCl (zoFRAN 4MG INJ) 4 mg Q6H PRN IV NAUSEA/VOMITING 04/19/25 22:00 05/19/25 21:59 04/24/25 22:19 4 MG Pharmacy Profile Note (Pharmacy Communication) 1 each ONCE MISC 05/01/25 12:30 05/01/25 12:11 DC Potassium Chloride 100 ml @ 100 mls/hr PROTOCOL PRN IV hypokalemia 05/01/25 21:00 05/31/25 20:59 05/01/25 22:29 100 MLS/HR Promethazine HCl (Phenergan) 12.5 mg Q8H5 PRN IM NAUSEA/VOMITING 04/22/25 12:30 05/22/25 12:29 04/22/25 12:25 12.5 MG Sodium Chloride 500 ml @ 0 mls/hr Q0M STAT IV 04/22/25 13:17 04/22/25 13:22 DC 04/22/25 14:39 600 MLS/HR Vancomycin HCl 250 ml @ 125 mls/hr Q24H IV 05/01/25 05:00 05/11/25 04:59 05/04/25 04:49 125 MLS/HR Vancomycin HCl 250 ml @ 125 mls/hr Q8H IV 04/29/25 21:00 04/30/25 14:25 DC 04/30/25 05:52 125 MLS/HR Vancomycin HCl (Vancomycin Protocol) 1 each AD IV 04/22/25 15:00 04/23/25 22:23 DC Vancomycin HCl (Vancomycin Protocol) 1 each AD IV 04/29/25 11:00 05/13/25 10:59 DIAGNOSTICS / RADIOLOGY: [ ] ASSESSMENT: Severe sepsis with MODS, resolved Leukocytosis Gram-positive cocci bacteremia Status post left rib biopsy by IR on 04/26/2025 New right upper lobe spiculated infiltrative mass measuring 5.4 x 4.6 cm infiltrating mediastinal pleura and albumin in the right main pulmonary artery Bulky mediastinal lymphadenopathy with the largest node measuring 4 cm involving the right paratracheal, prevascular, and subcarinal stations Multiple bilateral spiculated pulmonary nodules consistent with metastatic disease progression Bilateral marked diffuse adrenal enlargement likely metastatic or hyperplastic Left iliac fossa 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 Right upper extremity DVT involving the axillary and brachial veins Small-bowel obstruction Stage IV colorectal cancer with metastatic disease to the lung, pathology consistent with moderately differentiated adenocarcinoma, POA PLAN: patient is seen and examined at bedside, discussed with the RN, no acute events overnight, patient remains comfortably in bed, alert oriented x3, small-bowel series done 05/02/2025, still pending report. Continue the patient on TPN. Mother at bedside, updated. Follow a.m. labs. NEURO: Minimize central acting medications as possible. Fall Precautions. Well lighted room through the day and minimize interruptions through the night to prevent acute delirium. PULMONARY: Supplemental 02 as needed BiPAP as necessary, for respiratory distress Titrate Fio2 to keep Spo2 > or = 90% DuoNebs and CPT as needed IS hourly while awake for pulmonary hygiene prn Out of bed to chair as tolerated Maintain aspiration precautions at all times CARDIOVASCULAR: Follow hemodynamics. Vital signs per facility protocol GI & NUTRITION: Continue nutritional support Aspirations precautions Prokinetic agents and laxatives as needed KIDNEYS & ELECTROLYTES: Strict monitoring of intake and output Daily weights Avoid nephrotoxic agents Monitor electrolytes and replace as needed Goal urine output of 30mL/hr or 0.5mL/kg/hr Medications to be dosed according to renal function. Avoid contrast if possible ENDOCRINE: Maintain blood glucose between 100-180 at all times. Insulin sliding scale for blood glucose management Hypoglycemia and hyperglycemia protocol in place INFECTIOUS DISEASE: Trend temperature, WBC and procalcitonin level Follow cultures, deescalate antibiotics as soon as possible. Panculture if new onset fever HEMATOLOGY & COAGULATION: Monitor H&H. Keep Hgb > 7 Transfuse 1 unit of PRBC for Hgb < 7 Transfuse 1 pack of platelets of platelets < 20, 000 Watch for any signs and symptoms of bleeding SKIN: Pressure ulcer prevention per facility protocol Specialty mattress as needed ORTHO/REHAB Continue PT/OT PRN: MEDICATIONS Tylenol 650 mg po every 4 hrs for fever zofran 4 mg IV every 6 hrs for n/v Hydralazine 5 mg IV every 4 hrs systolic pressure > 160 bowel regiment: lactulose 20 gm PO BID PRN constipation Supportive measures: Continue GI and DVT prophylaxis Disposition: Pending improvement in clinical condition All questions answered time spent: > 35 min TITA PETERSON MD May 04, 2025 13:53
--- NOTE | 2025-05-04 15:05 | PN ---
NEPHROLOGY PROGRESS NOTE Date/Time Patient Seen: May 04, 2025 SUBJECTIVE: This is a 35-year-old male with a past medical history of morbid obesity, colon mass S/p resection with colostomy. He presented to emergency room with complaints of right knee pain. He has had a prolonged hospital stay. He was initially admitted with the acute on chronic renal failure. He does have a history of metastatic disease. S/p lung biopsy consistent with adenocarcinoma, stage IV Colorectal cancer with metastatic disease to the lung He continues on heparin drip for DVT. The patient's renal function has remained fairly stable in the patient has been seen as a follow up visit for all the above. Renal function and electrolytes has been stable Pending small-bowel series results Continues on diuretics He was seen in the medical floor, in no acute distress Multiple family members at the bedside REVIEW OF SYSTEMS: GENERAL: Positive for generalized weakness NEUROLOGIC: Negative for any blurry vision, blind spots, double vision, facial asymmetry, dysphagia, dysarthria, hemiparesis, hemisensory deficits, vertigo, ataxia. HEENT: Negative for any head trauma, neck trauma, neck stiffness, photophobia, phonophobia, sinusitis, rhinitis. CARDIAC: Negative for any chest pain, dyspnea on exertion, paroxysmal nocturnal dyspnea, peripheral edema. PULMONARY: Negative for any shortness of breath, wheezing, COPD, or TB exposure. GASTROINTESTINAL: Negative for any abdominal pain, nausea, vomiting, bright red blood per rectum, melena. GENITOURINARY: Negative for any dysuria, hematuria, incontinence. INTEGUMENTARY: Negative for any rashes, cuts, insect bites. RHEUMATOLOGIC: Negative for any joint pains, photosensitive rashes, history of vasculitis or kidney problems. HEMATOLOGIC: Negative for any abnormal bruising, frequent infections or bleeding. Vital Signs (last 8hr) Date Time Temp Pulse Resp B/P (MAP) Pulse Ox O2 Delivery O2 Flow Rate FiO2 05/03/25 13:07 97.9 89 18 121/42 93 Room Air 05/03/25 11:44 20 N/Cannula Low lpm 3.0 32 05/03/25 11:00 97.7 76 20 113/54 94 Nasal Cannula 3.0 05/03/25 08:02 20 N/Cannula Low lpm 3.0 32 05/03/25 08:00 93 Nasal Cannula* 3 32 05/03/25 07:00 97.3 85 20 104/59 93 Nasal Cannula 3.0 PHYSICAL EXAM: GENERAL: Alert and oriented x 3. No acute distress. Well-nourished. EYES: EOMI. Anicteric. HENT: Moist mucous membranes. No scleral icterus. No cervical lymphadenopathy. LUNGS: Clear to auscultation bilaterally. No accessory muscle use. CARDIOVASCULAR: Regular rate and rhythm. No murmur. No JVD. ABDOMEN: Soft, non-tender and non-distended. No palpable masses. EXTREMITIES: No edema. Non-tender.?SKIN: No rashes or lesions. Warm. NEUROLOGIC: No focal neurological deficits. CN II-XII grossly intact, but not individually tested. PSYCHIATRIC: Cooperative. Appropriate mood and affect. Current Medications Medications (Trade) Dose Ordered Sig/Checo Route PRN Reason Start Time Stop Time Status Last Admin Dose Admin Acetaminophen (TYLenol 325MG TAB) 650 mg Q6H PRN PO FEVER/pain 1-3 04/19/25 22:00 05/19/25 21:59 04/21/25 02:20 650 MG Benzonatate (Tessalon 100mg Caps) 100 mg Q8H PRN PO COUGH 05/03/25 11:00 06/02/25 10:59 05/03/25 11:32 100 MG Cefepime HCl (MAXipime 2 gm vial) 2 gm Q8H IVPB 04/22/25 13:00 04/30/25 13:07 DC 04/30/25 04:27 2 GM Cefepime HCl (MAXipime 2 gm vial) 2 gm Q8H IVPB 04/30/25 16:00 05/01/25 12:05 DC 05/01/25 00:34 2 GM Ceftriaxone Sodium (ROCEphine 1G INJ) 1 gm Q24H IVPB 04/20/25 10:00 04/22/25 12:41 DC 04/22/25 10:53 1 GM Dexamethasone Sodium Phosphate (dexaMETHasone 4MG/ML 1ML VIAL) 10 mg Q24H IV 05/01/25 17:00 05/02/25 09:13 DC 05/01/25 17:22 10 MG Dexamethasone Sodium Phosphate (dexaMETHasone 10MG/ML 1ML VIAL) 10 mg Q24H IV 05/02/25 17:00 05/31/25 16:59 05/02/25 16:57 10 MG Dextrose 1,000 ml @ 50 mls/hr Q20H IV 04/25/25 08:00 04/25/25 16:53 DC 04/25/25 10:38 100 MLS/HR Doxycycline Hyclate 250 ml @ 125 mls/hr Q12H IV 04/21/25 08:30 04/22/25 12:41 DC 04/22/25 08:14 125 MLS/HR Enoxaparin Sodium (Lovenox) 40 mg DAILY SQ 04/20/25 09:00 04/22/25 20:00 DC 04/22/25 08:14 40 MG Enoxaparin Sodium (Lovenox) 40 mg Q12H SQ 04/22/25 21:00 04/27/25 13:24 DC 04/27/25 08:10 40 MG Famotidine (Pepcid 20mg Vial) 20 mg BID IV 05/02/25 21:00 06/01/25 20:59 05/03/25 10:25 20 MG Famotidine (Pepcid 20mg Tab) 20 mg DAILY PO 04/20/25 09:00 05/02/25 12:03 DC 04/30/25 09:23 20 MG Fluconazole (DiFLUCan 100 mg TAB) 200 mg Q24H PO 05/01/25 12:30 05/02/25 12:03 DC Fluconazole/ Sodium Chloride (DiFLUCan 200 MG/ NS 100 ML) 200 mg Q24H IVPB 05/02/25 12:00 06/01/25 11:59 05/03/25 11:32 200 MG Furosemide (LASix 20MG VIAL) 20 mg Q12H IV 04/29/25 11:00 05/29/25 10:59 05/03/25 10:25 20 MG Furosemide (LASix 20MG VIAL) 20 mg Q8H IV 04/24/25 19:00 04/25/25 03:01 DC 04/25/25 03:06 20 MG Heparin Sodium (Porcine) (HEParin 5,000 UNIT VIAL) *calculation based on ACTUAL B... AD PRN IV HEPARIN PROTOCOL 04/27/25 14:00 05/27/25 13:59 Heparin Sodium/ Dextrose 250 ml @ 0 mls/hr Q6H IV 04/27/25 14:00 05/27/25 13:59 05/02/25 16:59 19.17 MLS/HR Hydralazine HCl (APRESOLine 20MG INJ) 5 mg Q6H PRN IV For:SBP above 160;DBP above 90 04/20/25 16:00 05/20/25 15:59 Hydralazine HCl (APRESOLine 20MG INJ) 10 mg Q6H PRN IV For:SBP above 160;DBP above 90 04/19/25 22:00 04/20/25 10:52 DC Hydromorphone HCl (DiLAUDid 0.5MG INJ) 0.5 mg Q4H PRN IVP SEVERE PAIN (7-10) 04/22/25 20:00 04/27/25 19:59 DC Ipratropium [place] (AtrovENT UD) 0.5 MG Q6H PRN IH SHORTNESS OF BREATH 04/28/25 19:30 05/28/25 19:29 04/29/25 11:10 0.5 MG Iron Sucrose (VenoFER) 200 mg DAILY IV 04/26/25 09:00 04/28/25 11:00 DC 04/28/25 09:20 200 MG Ketorolac Tromethamine (toRADol) 15 mg Q6H PRN IM MODERATE PAIN (4-6) 04/30/25 11:30 05/05/25 11:29 Ketorolac Tromethamine (toRADol) 15 mg Q6H PRN IV MODERATE PAIN (4-6) 04/20/25 11:00 04/22/25 19:58 DC 04/20/25 22:08 15 MG Labetalol HCl (TRANdate 20MG SYG) 10 mg Q6H PRN IV SUSTAINED HR >120 04/23/25 00:00 05/23/25 00:00 Lactated Ringer's 1,000 ml @ 50 mls/hr Q20H IV 04/21/25 12:30 04/25/25 07:47 DC 04/24/25 02:58 75 MLS/HR Lactated Ringer's 1,000 ml @ 100 mls/hr Q10H IV 04/19/25 22:00 04/20/25 10:52 DC 04/21/25 12:40 100 MLS/HR Lactulose (Constulose 20gm/ 30ml Udcup) 20 gm ACHS PRN PO CONSTIPATION 04/29/25 20:00 04/30/25 13:06 DC 04/30/25 09:33 20 GM Lactulose (Constulose 20gm/ 30ml Udcup) 20 gm BID PRN PO CONSTIPATION 04/19/25 22:00 04/29/25 19:41 DC Lactulose (Constulose 20gm/ 30ml Udcup) 20 gm Q6HWA PRN PO CONSTIPATION 04/30/25 13:00 05/30/25 12:59 Lidocaine (Lidocaine Patch 4%) 1 each DAILY TP 04/21/25 09:00 05/21/25 08:59 05/03/25 10:25 1 EACH Magnesium Sulfate 50 ml @ 0 mls/hr PROTOCOL IV 04/21/25 08:30 05/21/25 08:29 04/24/25 06:11 25 MLS/HR Meropenem (Merrem 1gm) 1 gm Q8H IVPB 05/01/25 12:30 05/02/25 12:29 DC 05/02/25 04:15 1 GM Metoclopramide HCl (regLAN 10MG IV) 10 mg Q6H6 IVP 05/01/25 18:00 05/31/25 17:59 05/03/25 11:32 10 MG Metronidazole/ Sodium Chloride 100 ml @ 100 mls/hr Q8H6 IVPB 04/22/25 14:00 05/02/25 13:59 DC 05/02/25 09:55 100 MLS/HR Morphine Sulfate (morPHINE 4MG SYG) 4 mg Q4H PRN IVP SEVERE PAIN (7-10) 04/19/25 22:00 04/20/25 10:52 DC Nystatin (NystOP 15 GM POWDER) 1 APPLICATION BID TP 04/26/25 14:00 05/26/25 13:59 05/03/25 10:25 1 APPL Ondansetron HCl (zoFRAN 4MG INJ) 4 mg Q6H PRN IV NAUSEA/VOMITING 04/19/25 22:00 05/19/25 21:59 04/24/25 22:19 4 MG Pharmacy Profile Note (Pharmacy Communication) 1 each ONCE MISC 05/01/25 12:30 05/01/25 12:11 DC Potassium Chloride 100 ml @ 100 mls/hr PROTOCOL PRN IV hypokalemia 05/01/25 21:00 05/31/25 20:59 05/01/25 22:29 100 MLS/HR Promethazine HCl (Phenergan) 12.5 mg Q8H5 PRN IM NAUSEA/VOMITING 04/22/25 12:30 05/22/25 12:29 04/22/25 12:25 12.5 MG Sodium Chloride 500 ml @ 0 mls/hr Q0M STAT IV 04/22/25 13:17 04/22/25 13:22 DC 04/22/25 14:39 600 MLS/HR Vancomycin HCl 250 ml @ 125 mls/hr Q24H IV 05/01/25 05:00 05/11/25 04:59 05/03/25 05:41 125 MLS/HR Vancomycin HCl 250 ml @ 125 mls/hr Q8H IV 04/29/25 21:00 04/30/25 14:25 DC 04/30/25 05:52 125 MLS/HR Vancomycin HCl (Vancomycin Protocol) 1 each AD IV 04/22/25 15:00 04/23/25 22:23 DC Vancomycin HCl (Vancomycin Protocol) 1 each AD IV 04/29/25 11:00 05/13/25 10:59 LABORATORY: [ ] Hematology Labs: Test 05/04/25 05:03 05/03/25 03:31 Range/Units White Blood Count 16.8 H 4.8-10.8 K/uL Red Blood Count 3.67 L 4.50-6.20 MIL/uL Hemoglobin 8.8 L 14.0-18.0 g/dL Hematocrit 29.4 L 42-54 % Mean Corpuscular Volume 80.1 79-99 fL Mean Corpuscular Hemoglobin 24.0 L 27.0-33.0 pg Mean Corpuscular Hemoglobin Concent 29.9 L 32.0-36.0 g/dL Red Cell Distribution Width 21.2 H 11.0-15.5 % Platelet Count 351 130-400 K/uL Mean Platelet Volume 10.9 H 7.5-10.5 fL Nucleated Red Blood Cells 0.0 0.0-0.19 % Immature Granulocyte % (Auto) 5.2 H 0-1 % Neutrophils (%) (Auto) 84.4 H 40.0-77.0 % Lymphocytes (%) (Auto) 5.3 L 21.0-51.0 % Monocytes (%) (Auto) 4.9 3.0-13.0 % Eosinophils (%) (Auto) 0.0 0.0-8.0 % Basophils (%) (Auto) 0.2 0.0-5.0 % Neutrophils # (Auto) 17.5 H 1.8-7.7 K/uL Lymphocytes # (Auto) 1.1 1.0-4.8 K/uL Monocytes # (Auto) 1.0 0.1-1.0 K/uL Eosinophils # (Auto) 0.00 0.00-0.70 K/uL Basophils # (Auto) 0.04 0.00-0.20 K/uL Absolute Immature Granulocyte (auto 1.08 H 0-1 K/uL Chemistry Labs: Test 05/04/25 05:03 Range/Units Sodium Level 138 136-145 mmol/L Potassium Level 4.2 3.5-5.1 mmol/L Chloride Level 102 101-111 mmol/L Carbon Dioxide Level 32 21-32 mmol/L Blood Urea Nitrogen 32 H 7-18 mg/dL Creatinine 0.7 0.5-1.3 mg/dL Glomerular Filtration Rate Calc 123 >90 mL/min Random Glucose 183 H 70-105 mg/dL Total Calcium 8.4 L 8.5-10.1 mg/dL Magnesium Level 2.50 H 1.80-2.40 mg/dL Total Bilirubin 0.6 0.2-1.0 mg/dL Aspartate Amino Transf (AST/SGOT) 66 H 10-37 U/L Alanine Aminotransferase (ALT/SGPT) 35 12-78 U/L Alkaline Phosphatase 154 H 50-136 U/L Total Protein 7.3 6.0-8.3 g/dL Albumin 2.1 L 3.5-5.0 g/dL Coagulation Labs: Test 05/04/25 05:03 Range/Units Activated Partial Thromboplast Time 54.7 H 26.3-35.5 [facility]OLOGY: [place] [address] [address] IMAGING REPORT Signed PATIENT: MARTY BARRON MR#: [id number] : 1990 SEX: M AGE: 35 LOCATION: 3CH ORDER 2300 STATUS: ADM IN REPORT#: [id number] SERVICE 0600 REASON: decreased ostomy output ORDERING PHYSICIAN: SAROJ MAGDALENO PROCEDURE: CXR1VW - CHEST 1VW EXAM: CR Chest, 1 View. CLINICAL HISTORY: decreased ostomy output COMPARISON: 05/01/2025 FINDINGS: LUNGS: Persistent right paratracheal opacity. Right inhomogeneous airspace opacities in the mid and lower zones, stable. Mild pulmonary vascular congestion. PLEURAL SPACES: No evidence of pleural effusion or pneumothorax. MEDIASTINUM: The cardiomediastinal silhouette is within normal limits. BONES: No acute osseous abnormality. IMPRESSION: 1. Stable right paratracheal opacity and right mid and lower zone airspace opacities. 2. Mild pulmonary vascular congestion. /[place] DICTATED BY: LYNDSEY ENRIQUE MD DATE: 05/03/251719 ELECTRONICALLY SIGNED BY: LYNDSEY ENRIQUE MD DATE: 05/03/251719 PATIENT: MARTY BARRON MR#: [id number] : 1990 SEX: M AGE: 35 LOCATION: 2DH ORDER 1434 STATUS: ADM IN REPORT#: [id number] SERVICE 1433 REASON: RULE OUT OBSTRUCTION VS ILIEUS ORDERING PHYSICIAN: TITA PETERSON MD PROCEDURE: ABD 1VW - ABD 1VW EXAM: CR Abdomen, 4 View. CLINICAL HISTORY: RULE OUT OBSTRUCTION VS ILIEUS COMPARISON: Radiograph dated April 30, 2025 FINDINGS: Redemonstrated air-filled dilated loops of small bowel measuring up to 5.[address] imaging to exclude small bowel ileus versus a partial distal small bowel obstruction. IMPRESSION: 1. Dilated small bowel loops up to 5.0 cm, concerning for ileus or partial small bowel obstruction. CT imaging recommended for further evaluation. /[place] DICTATED BY: ANTONIO STEINBERG Jr., MD DATE: 05/01/251946 ELECTRONICALLY SIGNED BY: ANTONIO STEINBERG Jr., MD DATE: 05/01/251946 PATIENT: MARTY BARRON MR#: [id number] : 1990 SEX: M AGE: 35 LOCATION: 2DH ORDER 99 STATUS: ADM IN REPORT#: [id number] SERVICE 9 REASON: decreased ostomy output ORDERING PHYSICIAN: SAROJ MAGDALENO PROCEDURE: CXR1VW - CHEST 1VW EXAM: CR Chest, 1 View. CLINICAL HISTORY: Decreased ostomy output. COMPARISON: CR ??? Chest 1 View dated 04/30/25, 08:56 EST. FINDINGS: LUNGS: Persistent right paratracheal opacity with inhomogeneous airspace infiltrates in the right lung. Inhomogeneous airspace infiltrates in the left upper lung appear decreased, suggesting interval resolution. No new pulmonary consolidation or mass. PLEURAL SPACES: No pleural effusion or pneumothorax. MEDIASTINUM: Cardiomediastinal silhouette within normal limits. BONES: No acute or aggressive osseous lesion. IMPRESSION: * Persistent right paratracheal opacity with inhomogeneous right lung infiltrates. * Interval resolving left upper lung infiltrates. * No pleural effusion or pneumothorax. Comparison: Compared with prior radiograph dated 04/30/25, right-sided opacities persist while left upper lung infiltrates show partial resolution. /[place] DICTATED BY: JOSAFAT DALY MD DATE: 05/01/252324 ELECTRONICALLY SIGNED BY: JOSAFAT DALY MD DATE: 05/01/252324 PATIENT: MARTY BARRON MR#: [id number] : 1990 SEX: M AGE: 35 LOCATION: 2DH ORDER 99 STATUS: ADM IN OF [facility] REPORT#: [id number] SERVICE 9 REASON: decreased ostomy output ORDERING PHYSICIAN: SAROJ MAGDALENO PROCEDURE: CXR1VW - CHEST 1VW EXAM: CHEST RADIOGRAPH, 1 VIEW Technique: Single frontal expiratory view of the chest. Clinical Information: Decreased ostomy output. Findings: Lungs and large airways: Mild patchy opacities are present in both upper lobes; a right paratracheal suprahilar opacity is again seen; no lobar collapse is identified. Pleura: No pleural effusion or pneumothorax is identified. Heart and mediastinum: Cardiomediastinal silhouette is within normal limits. Bones/joints: No acute osseous abnormality is identified. Impression: * Comparison: Compared with chest radiograph dated 04/28/2025 07:29 EDT, bilateral basilar consolidation with associated mild atelectasis has resolved; mild patchy opacities in both upper lobes and the right paratracheal suprahilar opacity are unchanged; no pleural effusion or pneumothorax is identified. * Mild bilateral upper-lobe opacities, stable???correlate clinically for resolving infection or inflammatory change. * Expiratory acquisition limits assessment of lung volumes and may accentuate vascular crowding. /[place] DICTATED BY: JOSAFAT DALY MD DATE: 05/01/25207 ELECTRONICALLY SIGNED BY: JOSAFAT DALY MD DATE: 05/01/25207 PATIENT: MARTY BARRON MR#: [id number] : 1990 SEX: M AGE: 35 LOCATION: [facility] ORDER 99 STATUS: ADM IN REPORT#: [id number] SERVICE 9 REASON: decreased ostomy output ORDERING PHYSICIAN: SAROJ MAGDALENO PROCEDURE: ABD 1VW - ABD 1VW ADDENDUM REPORT ADDENDUM: Results were shared by telephone at 06:34 am on 05-01-25 and acknowledged by Patients Nurse Juan PabloEzequiel Krauskatelyn /[place] EXAM: CR Abdomen, multiple views. CLINICAL HISTORY: Decreased ostomy output. COMPARISON: None provided. FINDINGS: Multiple dilated small bowel loops with multiple air-fluid levels. Large bowel loops are not dilated. Features of small bowel obstruction. Excreted contrast is identified within the urinary bladder. No free air is evident. No abnormal calcification. No aggressive appearing osseous lesion. IMPRESSION: Multiple dilated small bowel loops with multiple air-fluid levels. Large bowel loops are not dilated. The features concerning bowel obstruction or ileus. Recommend a barium follow-through study for further evaluation. /[place] DICTATED BY: ANTONIO STEINBERG Jr., MD DATE: 05/01/25636 ELECTRONICALLY SIGNED BY: DATE: EXAM: CR Abdomen, multiple views. CLINICAL HISTORY: Decreased ostomy output. COMPARISON: None provided. FINDINGS: Multiple dilated small bowel loops with multiple air-fluid levels. Large bowel loops are not dilated. Features of small bowel obstruction. Excreted contrast is identified within the urinary bladder. No free air is evident. No abnormal calcification. No aggressive appearing osseous lesion. IMPRESSION: Multiple dilated small bowel loops with multiple air-fluid levels. Large bowel loops are not dilated. The features concerning bowel obstruction or ileus. Recommend a barium follow-through study for further evaluation. /[place] DICTATED BY: ANTONIO STEINBERG Jr., MD DATE: 05/01/25622 ELECTRONICALLY SIGNED BY: ANTONIO STEINBERG Jr., MD DATE: 05/01/25622 PATIENT: MARTY BARRON MR#: [id number] : 1990 SEX: M AGE: 35 LOCATION: 2DH ORDER 9 STATUS: ADM IN OF [facility] REPORT#: [id number] SERVICE 6 REASON: Right arm PICC, concern for DVT, swelling, pain, and redness noted ORDERING PHYSICIAN: COOPER STUART ASSOCIATE PROFESSOR OF LIBRARY MEDIA PROCEDURE: VENOUS UNI - US VENOUS DOPPLER UNILATERAL ADDENDUM REPORT ADDENDUM: Results were shared by telephone at 14:06 pm on 04-27-25 and acknowledged by Pt Nurse, Ms Georgiana Solomon /[place] EXAM: ULTRASOUND VENOUS DOPPLER, RIGHT UPPER EXTREMITY Technique: Duplex ultrasound with grayscale imaging, compression maneuvers, color Doppler, and spectral Doppler sampling of the right upper extremity veins. Clinical Information: Right arm peripherally inserted central catheter; swelling, pain, and redness; concern for deep venous thrombosis. Findings: Right axillary vein: Noncompressible with intraluminal echogenic thrombus and absent color Doppler filling, consistent with thrombosis. Right brachial veins: Thrombus present consistent with deep venous thrombosis. Right cephalic vein: Partial (non-occlusive) thrombosis. PICC: Indwelling right upper extremity peripherally inserted central catheter present; catheter-associated thrombosis suspected based on thrombus distribution. Tip location not assessed on this examination. Additional comments: No other specific venous segment findings were provided for review. Impression: * Right upper extremity catheter-associated deep venous thrombosis involving the axillary vein and brachial veins. * Non-occlusive thrombosis of the right cephalic vein (superficial venous thrombosis). * Correlate clinically for pulmonary embolism risk; management typically includes anticoagulation per institutional protocol and assessment of need for PICC removal or exchange depending on clinical requirements. /[place] DICTATED BY: ANTONIO STEINBERG Jr., MD DATE: 04/27/25 1410 ELECTRONICALLY SIGNED BY: DATE: EXAM: ULTRASOUND VENOUS DOPPLER, RIGHT UPPER EXTREMITY Technique: Duplex ultrasound with grayscale imaging, compression maneuvers, color Doppler, and spectral Doppler sampling of the right upper extremity veins. Clinical Information: Right arm peripherally inserted central catheter; swelling, pain, and redness; concern for deep venous thrombosis. Findings: Right axillary vein: Noncompressible with intraluminal echogenic thrombus and absent color Doppler filling, consistent with thrombosis. Right brachial veins: Thrombus present consistent with deep venous thrombosis. Right cephalic vein: Partial (non-occlusive) thrombosis. PICC: Indwelling right upper extremity peripherally inserted central catheter present; catheter-associated thrombosis suspected based on thrombus distribution. Tip location not assessed on this examination. Additional comments: No other specific venous segment findings were provided for review. Impression: * Right upper extremity catheter-associated deep venous thrombosis involving the axillary vein and brachial veins. * Non-occlusive thrombosis of the right cephalic vein (superficial venous thrombosis). * Correlate clinically for pulmonary embolism risk; management typically includes anticoagulation per institutional protocol and assessment of need for PICC removal or exchange depending on clinical requirements. /[place] DICTATED BY: ANTONIO STEINBERG Jr., MD DATE: 04/27/251353 ELECTRONICALLY SIGNED BY: ANTONIO STEINBERG Jr., MD DATE: 04/27/250 PATIENT: MARTY BARRON MR#: [id number] : 1990 SEX: M AGE: 35 LOCATION: [facility] ORDER 1441 STATUS: ADM IN REPORT#: [id number] SERVICE 0000 REASON: rule out endocarditis ORDERING PHYSICIAN: SAROJ MAGDALENO PROCEDURE: ECHO CMP - ECHO 2-D COMPLETE APPROVED REPORT EXAM: Two-dimensional and M-mode echocardiogram with Doppler and color Doppler. INDICATION ICD: Rule out endocarditis, rule out clot or pulmonary embolism 2D Dimensions RVDd 3.6 cm LVEF(%) 56.6 (>50%) LVED Vol(simp.) 103.0 mL IVSd 0.9 (0.7-1.1cm) FS(%) 30 % LVES Vol(simp.) 45.0 mL LVDd 4.8 (3.8-5.6cm) LA (2D) 3.3 (1.6-4.0cm) LVEF(%, simp.) 56 % PWd 1.1 (0.7-1.1cm) Ao Root(2D) 3.4 (2.0-3.7cm) LA ESV INDEX (BP) 17.03 mL/m2 IVSs 1.0 cm LVOT diam 2.6 (1.8-2.4cm) LVDs 3.4 (2.5-4.0cm) IVC diam 1.1 cm PWs 1.0 cm Deformation Strain Apical 4 -14.1 % Apical 2 -15.4 % Apical 3 -13.0 % Global Strain -14.2 % M-Mode Dimensions EPSS 0.6 cm LA (MM) 3.8 (1.6-4.0cm) Ao Root(MM) 3.8 (2.0-3.7cm) Aortic Valve AoV Vmax 1.5 m/s Ao Peak GR 9.3 mmHg LVOT Vmax 1.3 m/s AoV VTI 0.2 m Ao Mean GR 5.5 mmHg LVOT VTI 0.18 m AARON (VMAX) 4.54 cm2 AARON (VTI) 4.4 cm2 Mitral Valve MV E Vmax 70.7 cm/s DECEL Time 158 ms MV A Vmax 67.4 cm/s P 1/2 T 46 ms E/A ratio 1.0 MVA (PHT) 4.7 cm2 TDI E/E' Medial 6.3 E/E' Lateral 6.1 Medial E' Peak V 11.25 cm/s Lateral E' Peak V 11.56 cm/s Pulmonary Valve PV Vmax 1.6 m/s PV VTI 0.19 m PV Mean GR 5.0 mmHg PV Peak GR 10.4 mmHg Tricuspid Valve TR Vmax 3.6 m/s RAP (EST) 3 mmHg RVSP 64.1 mmHg TR Peak GR 61.1 mmHg Left Ventricle The left ventricle is normal size. GLS -14.0% There is normal left ventricular wall thickness. LVEF is 50-55%. No left ventricle thrombus noted on this study. The left ventricular diastolic function is normal. Right Ventricle The right ventricle is normal size. The right ventricular systolic function is normal. Atria The left atrium size is normal. There is no mass or thrombus suspected in the left atrium. The right atrium size is normal. There is no mass or thrombus suspected in the right atrium. Aortic Valve The aortic valve is trileafelt normal in structure. No aortic regurgitation is present. No aortic valvular vegetation noted. There is no aortic valvular stenosis. Mitral Valve The mitral valve is normal in structure. There is no mitral valve regurgitation noted. There are no mitral valve vegetation noted. There is no mitral valve stenosis. Tricuspid Valve The tricuspid valve is normal in structure. There is mild tricuspid valve regurgitation noted by color Doppler. RVSP 61mmHg. There is no tricuspid valve vegetation. Pulmonic Valve The pulmonary valve is not well visualized. There is no pulmonic valvular regurgitation. Great Vessels The aortic root is normal in size. The IVC is normal in size and collapses >50% with inspiration. Pericardium There is no pericardial effusion. Other Information Quality : Technically difficult study due to body habitus Rhythm : NSR Conclusion LVEF is 50-55%. No left ventricle thrombus noted on this study. No intracardiac masses No valvular vegetations DICTATED BY: ZELDA MARTINEZ DO DATE: 04/23/25922 ELECTRONICALLY SIGNED BY: ZELDA MARTINEZ DO DATE: 04/23/25 189 PATIENT: MARTY BARRON MR#: [id number] : 1990 SEX: M AGE: 35 LOCATION: [facility] ORDER 06 STATUS: ADM IN REPORT#: [id number] SERVICE 0600 REASON: multiple lung nodules suggestive of mets. recntly diagnosed adenoca colon. ORDERING PHYSICIAN: KRISTIAN MORTON MD PROCEDURE: BXLUNG - CT BX LUNG/MEDIASTINUM NDL IR PERCUTANEOUS CT-GUIDED BIOPSY OF left anterior rib mass: CLINICAL HISTORY: This is a 35 [id number] Male with multiple lesion seen in the lungs there is an expansile mass seen in the left anterior rib for CT-guided biopsy of left anterior rib mass. The risk and benefit was explained to the patient. The risks include infection and possible bleed. The patient consented to the procedure. PROCEDURE: Patient was placed in supine position. Patient was given IV conscious sedation with 2 mg of Versed and 50 MCG of fentanyl.. Under CT guidance left anterior rib lesion was localized. After sterile prep and drapa, using 1% xylocaine for local anesthetic, using a 18-gauge Bard gun, a total of 3 core biopsies were obtained. The specimen was sent for histology and cell block. The patient tolerated the procedure and post-biopsy demonstrated no bleed. There is no evidence of any pneumothorax. IMPRESSION: PERCUTANEOUS CT-GUIDED BIOPSY OF left anterior rib WITH SPECIMENS SENT FOR Histology and cell block.. THE PATIENT TOLERATED PROCEDURE WELL. PATHOLOGY REPORT IS PENDING. If this path report does not demonstrate malignancy I would recommend lung biopsy DICTATED BY: LEXIE NG MD DATE: 04/26/25 1111 ELECTRONICALLY SIGNED BY: LEXIE NG MD DATE: 04/26/25 1116 PATIENT: MARTY BARRON MR#: [id number] : 1990 SEX: M AGE: 35 LOCATION: 2AH ORDER [id number] STATUS: ADM IN REPORT#: [id number] SERVICE 1056 REASON: RLQ PAIN ORDERING PHYSICIAN: TITA PETERSON MD PROCEDURE: ABD PEL WO - CT ABDOMEN/PELVIS W/O CONTRAST ADDENDUM REPORT ADDENDUM: Results were shared by telephone at 1:37 pm on 04-22-[address] David Mary /[place] EXAM: CT Abdomen and Pelvis Without IV contrast CLINICAL HISTORY: RLQ PAIN TECHNIQUE: Axial computed tomography images of the abdomen and pelvis without intravenous contrast. CONTRAST: No IV contrast. COMPARISON: None provided. FINDINGS: LUNG BASES: Multiple randomly distributed nodules in both lungs, the largest measuring 2.1 x 1.6 cm in the medial basal segment of the right lower lobe. Patchy areas of consolidation in bilateral lower lobes. Ill-defined lytic-sclerotic lesion in the left anterior aspect of the 6th rib. Dependent airway disease along bilateral lower lobes, presumed to represent basal atelectasis. LIVER: Hepatic steatosis. GALLBLADDER AND BILE DUCTS: Post cholecystectomy status. No biliary ductal dilatation is evident. PANCREAS: Unremarkable. SPLEEN: Unremarkable. ADRENAL GLANDS: Bilateral adrenal glands appear diffusely bulky, predominantly on the left side, likely adrenal gland hyperplasia. KIDNEYS, URETERS, AND BLADDER: The kidneys appear within normal limits. There is no hydronephrosis or hydroureter. No urinary calculi are seen. STOMACH AND BOWEL: There is a defect of size 5.6 cm in the left anterior abdominal wall with herniation of the descending colon and small bowel loop. There is dilatation of the herniated bowel loop up to 4.1 cm, consistent with obstruction. Thickened and irregular appearing loop of small bowel in the mid pelvis. Ischemia is not excluded. A contrast-enhanced CT is recommended. PERITONEUM: Trace-free fluid. No free air. LYMPH NODES: No lymphadenopathy is evident. REPRODUCTIVE: Unremarkable as visualized. VASCULATURE: No evidence of abdominal aortic aneurysm. BONES: Lytic lesion in the L4 vertebral body. IMPRESSION: 1. Thickened and irregular appearing loop of small bowel in the mid pelvis. Ischemia is not excluded. A contrast-enhanced CT is recommended. 2. Left anterior abdominal wall hernia with herniation of descending colon and small bowel, with bowel obstruction up to 4.1 cm. 3. Lytic lesion in L4 vertebral body. Left anterior 6th rib lytic-sclerotic lesion. 4. Multiple pulmonary nodules, the largest 2.1 cm in the right lower lobe -suspicious for metastasis. 5. Bilateral adrenal gland hyperplasia, more prominent on the left. Suggest PET-CT for further evaluation. /[place] DICTATED BY: LYNDSEY ENRIQUE MD DATE: 04/22/25 1339 ELECTRONICALLY SIGNED BY: DATE: EXAM: CT Abdomen and Pelvis Without IV contrast CLINICAL HISTORY: RLQ PAIN TECHNIQUE: Axial computed tomography images of the abdomen and pelvis without intravenous contrast. CONTRAST: No IV contrast. COMPARISON: None provided. FINDINGS: LUNG BASES: Multiple randomly distributed nodules in both lungs, the largest measuring 2.1 x 1.6 cm in the medial basal segment of the right lower lobe. Patchy areas of consolidation in bilateral lower lobes. Ill-defined lytic-sclerotic lesion in the left anterior aspect of the 6th rib. Dependent airway disease along bilateral lower lobes, presumed to represent basal atelectasis. LIVER: Hepatic steatosis. GALLBLADDER AND BILE DUCTS: Post cholecystectomy status. No biliary ductal dilatation is evident. PANCREAS: Unremarkable. SPLEEN: Unremarkable. ADRENAL GLANDS: Bilateral adrenal glands appear diffusely bulky, predominantly on the left side, likely adrenal gland hyperplasia. KIDNEYS, URETERS, AND BLADDER: The kidneys appear within normal limits. There is no hydronephrosis or hydroureter. No urinary calculi are seen. STOMACH AND BOWEL: There is a defect of size 5.6 cm in the left anterior abdominal wall with herniation of the descending colon and small bowel loop. There is dilatation of the herniated bowel loop up to 4.1 cm, consistent with obstruction. Thickened and irregular appearing loop of small bowel in the mid pelvis. Ischemia is not excluded. A contrast-enhanced CT is recommended. PERITONEUM: Trace-free fluid. No free air. LYMPH NODES: No lymphadenopathy is evident. REPRODUCTIVE: Unremarkable as visualized. VASCULATURE: No evidence of abdominal aortic aneurysm. BONES: Lytic lesion in the L4 vertebral body. IMPRESSION: 1. Thickened and irregular appearing loop of small bowel in the mid pelvis. Ischemia is not excluded. A contrast-enhanced CT is recommended. 2. Left anterior abdominal wall hernia with herniation of descending colon and small bowel, with bowel obstruction up to 4.1 cm. 3. Lytic lesion in L4 vertebral body. Left anterior 6th rib lytic-sclerotic lesion. 4. Multiple pulmonary nodules, the largest 2.1 cm in the right lower lobe -suspicious for metastasis. 5. Bilateral adrenal gland hyperplasia, more prominent on the left. Suggest PET-CT for further evaluation. /[place] DICTATED BY: LYNDSEY ENRIQUE MD DATE: 04/22/251332 ELECTRONICALLY SIGNED BY: LYNDSEY ENRIQUE MD DATE: 04/22/251332 ASSESSMENT: Acute on chronic renal failure Severe sepsis with MODS, resolved Leukocytosis Gram-positive cocci bacteremia Status post left rib biopsy by IR on 04/26/2025 New right upper lobe spiculated infiltrative mass measuring 5.4 x 4.6 cm infiltrating mediastinal pleura and albumin in the right main pulmonary artery Bulky mediastinal lymphadenopathy with the largest node measuring 4 cm involving the right paratracheal, prevascular, and subcarinal stations Multiple bilateral spiculated pulmonary nodules consistent with metastatic disease progression Bilateral marked diffuse adrenal enlargement likely metastatic or hyperplastic Left iliac fossa 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 Right upper extremity DVT involving the axillary and brachial veins Small-bowel obstruction Stage IV colorectal cancer with metastatic disease to the lung, pathology con sistent with moderately differentiated adenocarcinoma, POA PLAN: Labs, diagnostic, radiologic exams reviewed and interpreted by myself and supervising physician. We have reviewed external records in detail Oncology work-up is ongoing BiPAP as necessary, for respiratory distress Monitor blood pressure adjust medication doses as needed Avoid hypotensive episodes May use Dilaudid 0.5 mg IV every 6 hours as needed for severe pain Strict intake, output, and daily weight should be monitored Please renally adjust medications Avoid nephrotoxic and nonsteroidal drugs Avoid contrast if possible Will continue to monitor renal function, anemia, electrolytes Treatment plan discussed with patient Questions were answered We have discussed with the other team physicians in detail about the care plan We will continue to monitor the patient closely ATTESTATION BY PHYSICIAN I have seen and examined the patient. I reviewed the documentation, medical decision making, and treatment plan as noted by the mid-level provider above. I agree with the findings and plan of care. ANAYA CHENEY MD, [facility] May 04, 2025 15:05
--- NOTE | 2025-05-04 16:19 | PN ---
INFECTIOUS DISEASE PROGRESS NOTE Date of Service: May 04, 2025 SUBJECTIVE: This is a 35-year-old male patient who was seen and examined at bedside in room 317. Patient is awake, alert and oriented x3. Patient reported that he did not participated well with physical therapy due to right knee pain. Nursing to contact physical therapy for patient to spent more time sitting up on the chair. Continues on Meropenem, fluconazole and vancomycin. Remains on heparin drip for right upper extremities DVT. Pending radiology interpretation of the small bowel series. Remains afebrile, temperature is 98.1 and the WBC is slowly trending down and is 16.8 today. We will continue to follow patient's care. PHYSICAL EXAM EYES: Anicteric. Pupils equal and reactive. HENT: No oral thrush seen, moist Oral mucosa. NECK: Supple, no JVD or thyromegaly. LUNGS: Diminished. Oxygen via nasal cannula. CARDIOVASCULAR: S1, S2 regular. No murmur heard. ABDOMEN: Abdomen is large but Soft, bowel sounds present. Left colostomy. CENTRAL NERVOUS SYSTEM: Awake, alert, oriented x 3. SKIN: No rashes, no swelling. LYMPHATICS: No peripheral lymphadenopathy. MUSCULOSKELETAL: Right knee pain. EXTREMITIES: No cyanosis or clubbing. BACK: No deformity, no pressure ulcer. GENITOURINARY: No dysuria or hematuria. Vital Sign (Last 12 Hours) 05/04/25 05/04/25 05/04/25 05/04/25 06:49 07:35 11:05 15:39 Temp 98.1 98.1 98.2 Pulse 68 67 66 66 Resp 20 17 17 18 B/P (MAP) 116/75 133/90 132/89 Pulse Ox 97 96 94 O2 Delivery N/Cannula Low lpm Nasal Cannula Nasal Cannula Nasal Cannula O2 Flow Rate 3.0 2.0 2.0 3.0 FiO2 32 Intake & Output (last 24hrs) 05/03/25 05/03/25 05/04/25 15:00 23:00 07:00 Intake Total 134.4 ml 408.8 ml 799.4 ml Output Total 1200 ml Balance 134.4 ml 408.8 ml -400.6 ml LABS: Laboratory: Test 05/04/25 05:03 05/03/25 03:31 Range/Units White Blood Count 16.8 H 4.8-10.8 K/uL Red Blood Count 3.67 L 4.50-6.20 MIL/uL Hemoglobin 8.8 L 14.0-18.0 g/dL Hematocrit 29.4 L 42-54 % Mean Corpuscular Volume 80.1 79-99 fL Mean Corpuscular Hemoglobin 24.0 L 27.0-33.0 pg Mean Corpuscular Hemoglobin Concent 29.9 L 32.0-36.0 g/dL Red Cell Distribution Width 21.2 H 11.0-15.5 % Platelet Count 351 130-400 K/uL Mean Platelet Volume 10.9 H 7.5-10.5 fL Nucleated Red Blood Cells 0.0 0.0-0.19 % Activated Partial Thromboplast Time 54.7 H 26.3-35.5 SEC Sodium Level 138 136-145 mmol/L Potassium Level 4.2 3.5-5.1 mmol/L Chloride Level 102 101-111 mmol/L Carbon Dioxide Level 32 21-32 mmol/L Blood Urea Nitrogen 32 H 7-18 mg/dL Creatinine 0.7 0.5-1.3 mg/dL Glomerular Filtration Rate Calc 123 >90 mL/min Random Glucose 183 H 70-105 mg/dL Total Calcium 8.4 L 8.5-10.1 mg/dL Magnesium Level 2.50 H 1.80-2.40 mg/dL Total Bilirubin 0.6 0.2-1.0 mg/dL Aspartate Amino Transf (AST/SGOT) 66 H 10-37 U/L Alanine Aminotransferase (ALT/SGPT) 35 12-78 U/L Alkaline Phosphatase 154 H 50-136 U/L Total Protein 7.3 6.0-8.3 g/dL Albumin 2.1 L 3.5-5.0 g/dL Immature Granulocyte % (Auto) 5.2 H 0-1 % Neutrophils (%) (Auto) 84.4 H 40.0-77.0 % Lymphocytes (%) (Auto) 5.3 L 21.0-51.0 % Monocytes (%) (Auto) 4.9 3.0-13.0 % Eosinophils (%) (Auto) 0.0 0.0-8.0 % Basophils (%) (Auto) 0.2 0.0-5.0 % Neutrophils # (Auto) 17.5 H 1.8-7.7 K/uL Lymphocytes # (Auto) 1.1 1.0-4.8 K/uL Monocytes # (Auto) 1.0 0.1-1.0 K/uL Eosinophils # (Auto) 0.00 0.00-0.70 K/uL Basophils # (Auto) 0.04 0.00-0.20 K/uL Absolute Immature Granulocyte (auto 1.08 H 0-1 K/uL Vancomycin Level Trough 10.3 10.0-20.0 UG/ML ASSESSMENT: Hypoxic respiratory failure, requiring oxygen support. Staphylococcus epidermidis bacteremia, which is a contaminant. Leukocytosis. Right knee osteoarthritis. Bilateral pulmonary nodules consistent with metastatic disease, s/p lung biopsy. Small-bowel obstruction. Acute renal failure, improving. Morbid obesity. Recent Colorectal mass with resection and colostomy creation. Right upper extremity DVT. Debility. PLAN: Continue Meropenem. Continue fluconazole.. Continue vancomycin per pharmacy protocol. Continues on heparin drip. Continue oxygen support. Continue GI prophylaxis. Continue pain management. Avoid nephrotoxic medications. Pending a small bowel series report. Continue physical therapy. This case was reviewed and discussed with my supervising physician Dr. Richards and the above assessment and plan was formulated and agreed upon. ATTESTATION BY PHYSICIAN I have seen and examined the patient. I reviewed the documentation, medical decision making, and treatment plan as noted by the mid-level provider above. I agree with the findings and plan of care. JULIANNA RICHARDS MD, [facility] May 04, 2025 16:19
[2025-05-04] MEDS ORDERED: PHARMACY COMMUNICATION MISC SCH (16:30)
--- NOTE | 2025-05-04 16:58 | HMCIMG ---
SMALL BOWEL SERIES HISTORY: Status post colon resection with ostomy placement 2 months ago COMPARISON: None. TECHNIQUE: A small bowel series was performed with serial radiographs of the abdomen and pelvis obtained after oral administration of contrast. Patient was given 180 cc of Gastrografin. FINDINGS: REINFORCING STEEL WORKER: No evidence for free air. No unusual calcifications detected. Small bowels are dilated air-filled suggesting of possible ileus. There are surgical clips in the right upper quadrant. After oral administration of 90 cc of Gastrografin, normal opacification of the stomach noted without evidence for malrotation. The duodenum, jejunum, and ileum appear normal in caliber. The mucosal pattern appears grossly normal, without evidence for obstruction or discrete filling defect. Transit time through the small bowel was approximately 24 hours with Gastrografin has reached large bowel and sigmoid colon. (normal is 1-4 hrs). The terminal ileum was spotted, and no strictures or masses detected. IMPRESSION: There is resolving Gastrografin small bowel follow-through with 24-hour the Gastrografin has reached sigmoid colon and transverse colon.
[2025-05-04] MEDS: MEROPENEM 1GM 1 GM VIAL IVPB SCH (17:25)
--- NOTE | 2025-05-04 20:40 | NUR ---
MEDS SHIFT ASSESSMENT DONE, PLEASE REFER TO CHART. DUE MEDS ADMINISTERED, TOLERATED WELL. KEPT RESTED AND COMFORTABLE IN BED. CALL LIGHT WITHIN REACH. FAMILY AT BEDSIDE.
[2025-05-04] MEDS: CLINIMIX-E4.25%AA/D5+LYT2000ML 2,000 ML IV ONE (20:43)
--- NOTE | 2025-05-04 23:15 | NUR ---
CHANGE PT'S COLOSTOMY BAG IS LEAKING. CHANGED COLOSTOMY BAG AND SECURED. CHANGED PT'S SOILED GOWN. INSERTED PIV G20 TO LFA, TOLERATED WELL. DUE MEDS ADMINISTERED, TOLERATED WELL. PT VERBALIZES HE IS READY FOR HIS CPAP, CALLED RT TO CONNECT PT.
[2025-05-05] VITALS (12 sets, daily range): BP systolic 117–153; BP diastolic 74–104; PULSE 53–84; RESP 18–26; TEMP 97.3–98.3; O2SAT 95–97
--- NOTE | 2025-05-05 04:38 | NUR ---
DRIP PTT RESULTS=25.1. HEPARIN DRIP INCREASED BY 4 UNITS/KG/HR PER PROTOCOL, WITNESSED BY HERLINDA MANZO. ORDERED NEXT PTT LEVEL AT 10AM.
[2025-05-05 04:56] LABS: NUCLEATED RED BLOOD CELLS 0.0 % (0.0-0.19); PLATELET COUNT (AUTO) 300 K/uL (130-400); RED BLOOD CELL COUNT(AUTO) 3.94 MIL/uL (4.50-6.20); RED CELL DISTRIBUTION WIDTH 21.4 % (11.0-15.5); WHITE BLOOD COUNT (AUTO) 15.6 K/uL (4.8-10.8)
[2025-05-05 05:02] LABS: ASPARTATE AMINOTRANSFERASE 89.0 U/L (10-37); CREATININE 0.7 mg/dL (0.5-1.3); GLOMERULAR FILTR. RATE CALC 123.0 mL/min (>90); GLUCOSE,RANDOM 168.0 mg/dL (70-105); SODIUM SERUM 134.0 mmol/L (136-145); TOTAL PROTEIN, SERUM 7.3 g/dL (6.0-8.3); UREA NITROGEN, BLOOD 33.0 mg/dL (7-18)
--- NOTE | 2025-05-05 05:20 | NUR ---
MEDS PT SLEPT AT INTERVALS DURING THE SHIFT. NO DISTRESS NOTED. NO COMPLAINTS VERBALIZED. DUE MEDS ADMINISTERED, TOLERATED WELL. KEPT RESTED AND COMFORTABLE IN BED. CALL LIGHT WITHIN REACH. FOR MORE CARE.
--- NOTE | 2025-05-05 10:40 | NUR ---
PTT 64.1; NO CHNAGES TO CURRENT HEPARIN DRIP. WILL REPEAT PTT IN 6 HRS
--- NOTE | 2025-05-05 10:54 | PN ---
[facility] PROGRESS NOTE Date Patient Seen: May 05, 2025 Time of Visit: 10:51 Supervising Physician: Mack Parada Inpatient Consults: Dr. Nguyen, Dr. Abad, Dr. Henry, Dr. Johnson PROBLEM LIST: Severe sepsis with MODS, resolving Leukocytosis Staphylococcus epidermidis bacteremia, which is a contaminant. Status post left rib biopsy by IR on 04/26/2025 New right upper lobe spiculated infiltrative mass measuring 5.4 x 4.6 cm infiltrating mediastinal pleura and albumin in the right main pulmonary artery Bulky mediastinal lymphadenopathy with the largest node measuring 4 cm involving the right paratracheal, prevascular, and subcarinal stations Multiple bilateral spiculated pulmonary nodules consistent with metastatic d isease progression (+) adenocarcinoma Stage IV Colorectal cancer with metastatic disease to the lung Bilateral marked diffuse adrenal enlargement likely metastatic or hyperplastic Left iliac fossa 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 deep venous thrombosis involving the right axillary vein and brachial veins INTERVAL HISTORY: 05/01 - Patient seen and examined, all labs and imaging have been reviewed, patient is awake alert and oriented, nursing reports no acute events overnight. Patient is afebrile, vital signs are stable, good sats on nasal cannula 2 L Patient continues on the cefepime, vanc and Flagyl, the last blood cultures positive for from the blood, staph on 04/21 Sputum is pending He continues on duo nebs He is on Lasix 20 mg and we have 520 of urine out in 12 hours Chest x-ray is pending 05/02 - Patient is seen and examined at the bedside. Pt is laying in bed resting quietly accompanied by his mom and other family members. Patient appears to be weak, deconditioned, and hypoxemic requiring 2 L via N/C. Patient continues utilizing Bipap nightly. Pt reports he uses a Cpap at home nightly. Patient continues on multiple broad spectrum antibiotics which are being managed by Dr Nguyen. Most recent cxray shows resolving left upper lung infiltrate. White count slowly trending down. Biopsy results are still pending. Patient continues on heparin drip for DVT. PT was evaluated by Dr Johnson and depending on Lung nodule biopsy results, will plan for genetic phenotyping for targeted therapy if feasible. Pt had a KUB performed which shows partial small bowel obstruction. As per nursing, surgery team has been made aware. Will continue to follow closely. 05/03 - Patient was seen and examined, patient is sitting at the side of the bed. Patient is just back from his small bowel pass through. He states that he has had numerous loose stools and is passing gas. He is hoping to resume his diet shortly. We are waiting on surgery's recommendations Patient is awake alert and oriented reporting no pain or discomfort Good saturations on room air His vital signs are stable We ordered new cultures he continues on Merrem fluconazole and vancomycin 05/04 - patient is seen in the evaluated at the bedside. Patient is sitting up in bed accompanied by his mom. Patient appears to be weak, deconditioned and hypoxemic currently requiring2 L via nasal cannula. Patient continues using a CPAP nightly. Patient remains NPO as suspected small bowel obstruction. Patient had a small bowel series and currently pending official results. Patient does report continues with large watery stools. Patient reports he is hungry in hope to resume his diet soon. Follow surgery recommendations. As per Dr. Johnson's note, patient has stage IV colorectal cancer with metastatic disease to the lungs. Pathology is consistent with moderately differentiated adenocarcinoma. Patient is advised on the importance of getting up out of bed and attempting to work with physical therapy as tolerated. Prognosis remains guarded. Patient continues on broad-spectrum antibiotics per Infectious Disease. White count trending down. 05/05 - patient is seen sitting up in bed continues to be weak, deconditioned hypoxemic requiring 2 L via nasal cannula. Patient continues utilizing his CPAP nightly. No acute changes reported overnight. Patient's small-bowel series shows resolving Gastrografin small-bowel follow-through with24 hour Gastrografin has rates sigmoid colon and transverse colon. Patient has been started on clear liquid diet and instructed to advance as tolerated per surgical team. Patient continues on heparin drip for right upper extremity DVT. Patient continues on multiple broad-spectrum antibiotics as per Infectious Disease. Patient is being followed closely by Oncology. Patient advised to get out of bed and work with physical therapy as tolerated. PLAN Supplemental oxygen as needed Wean off as tolerated Continue CPAP nightly and p.r.n. Patient is started on clear liquid diet Follow surgical team recs Continue antibiotics as per Infectious Disease Follow up Dr. Johnson recommendations REVIEW OF SYSTEMS: 12 point ROS reviewed with patient. Pertinent positives mentioned above. Otherwise negative. PHYSICAL EXAM: GENERAL: alert, obese, weak, awake oriented x 3 HEENT: EOMI, Sclera non icteric, moist mucosa NC NECK: Supple, no JVD, trachea midline LUNGS: Diminished breath sounds bilaterally. No wheezes HEART: Normal rate and rhythm. Normal S1 and S2, without murmurs ABD: morbidly obese Abdomen soft, nontender. Bowel sounds hypoactive EXT: No clubbing cyanosis or edema NEURO: Alert and oriented to person, follows commands Vital Signs (last 8hr) Date Time Temp Pulse Resp B/P (MAP) Pulse Ox O2 Delivery O2 Flow Rate FiO2 05/05/25 08:00 97.3 67 18 153/104 96 Room Air 05/05/25 07:19 20 N/Cannula Low lpm 2.0 28 05/05/25 04:00 98.1 67 19 140/74 94 Nasal Cannula 2.0 24 LABS: Hematology Labs: Test 05/05/25 04:38 Range/Units White Blood Count 15.6 H 4.8-10.8 K/uL Red Blood Count 3.94 L 4.50-6.20 MIL/uL Hemoglobin 9.4 L 14.0-18.0 g/dL Hematocrit 31.8 L 42-54 % Mean Corpuscular Volume 80.7 79-99 fL Mean Corpuscular Hemoglobin 23.9 L 27.0-33.0 pg Mean Corpuscular Hemoglobin Concent 29.6 L 32.0-36.0 g/dL Red Cell Distribution Width 21.4 H 11.0-15.5 % Platelet Count 300 130-400 K/uL Mean Platelet Volume 10.4 7.5-10.5 fL Nucleated Red Blood Cells 0.0 0.0-0.19 % Red Blood Cell Morphology See comments Chemistry Labs: Test 05/05/25 05:24 05/05/25 04:38 Range/Units Whole Blood Glucose 162 H 70-110 MG/DL Sodium Level 134 L 136-145 mmol/L Potassium Level 4.7 3.5-5.1 mmol/L Chloride Level 98 L 101-111 mmol/L Carbon Dioxide Level 27 21-32 mmol/L Blood Urea Nitrogen 33 H 7-18 mg/dL Creatinine 0.7 0.5-1.3 mg/dL Glomerular Filtration Rate Calc 123 >90 mL/min Random Glucose 168 H 70-105 mg/dL Total Calcium 8.3 L 8.5-10.1 mg/dL Magnesium Level 2.30 1.80-2.40 mg/dL Total Bilirubin 0.6 0.2-1.0 mg/dL Aspartate Amino Transf (AST/SGOT) 89 H 10-37 U/L Alanine Aminotransferase (ALT/SGPT) 63 # 12-78 U/L Alkaline Phosphatase 157 H 50-136 U/L Total Protein 7.3 6.0-8.3 g/dL Albumin 2.2 L 3.5-5.0 g/dL Coagulation Labs: Test 05/05/25 09:55 Range/Units Activated Partial Thromboplast Time 64.1 #H 26.3-35.5 SEC DIAGNOSTICS / RADIOLOGY RESULTS: [ ] PLAN NEURO: Minimize central acting medications as possible. Maintain fall precautions, adequate lighting during the day PULMONARY: Supplemental 02 as needed. Maintain aspiration precautions at all times CARDIOVASCULAR: Follow hemodynamics. Vital signs per facility protocol GI & NUTRITION: Continue with nutritional support. Continue stool softeners and laxatives as needed. KIDNEYS & ELECTROLYTES: Strict monitoring of intake, output and overall fluid balance. Avoid nephrotoxic medications to the extent possible. Medications to be dosed according to renal function. Monitor electrolytes and replace as needed ENDOCRINE: Maintain blood glucose between 100-180 at all times. Hypoglycemia protocol in place INFECTIOUS DISEASE: Trend temperature, WBC and procalcitonin level Follow cultures, deescalate antibiotics as soon as possible. Panculture if new onset fever ONCOLOGY/HEMATOLOGY/COAGULATION: Monitor for s/s of bleeding Monitor hemoglobin, coagulation studies as needed SKIN: Pressure ulcer prevention per facility protocol Specialty mattress ORTHO/REHAB: Continue PT/OT Prophylaxis: Continue GI and DVT prophylaxis Code Status: Full Resuscitation Disposition: Per primary team ATTESTATION BY PHYSICIAN I attest that I reviewed and discussed the case with the Physician Ladle Car Operator as well as agree with the Physician Ladle Car Operator's findings, plans of care, and documentation above. Karel Johnson MD,[facility] May 05, 2025 10:54
--- NOTE | 2025-05-05 12:32 | PN ---
NEPHROLOGY PROGRESS NOTE Date/Time Patient Seen: May 05, 2025 SUBJECTIVE: This is a 35-year-old male with a past medical history of morbid obesity, colon mass S/p resection with colostomy. He presented to emergency room with complaints of right knee pain. He has had a prolonged hospital stay. He was initially admitted with the acute on chronic renal failure. He does have a history of metastatic disease. S/p lung biopsy consistent with adenocarcinoma, stage IV Colorectal cancer with metastatic disease to the lung He continues on heparin drip for DVT. The patient's renal function has remained fairly stable in the patient has been seen as a follow up visit for all the above. Renal function and electrolytes has been stable Continues on diuretics He was seen in the medical floor, in no acute distress Multiple family members at the bedside REVIEW OF SYSTEMS: GENERAL: Positive for generalized weakness NEUROLOGIC: Negative for any blurry vision, blind spots, double vision, facial asymmetry, dysphagia, dysarthria, hemiparesis, hemisensory deficits, vertigo, ataxia. HEENT: Negative for any head trauma, neck trauma, neck stiffness, photophobia, phonophobia, sinusitis, rhinitis. CARDIAC: Negative for any chest pain, dyspnea on exertion, paroxysmal nocturnal dyspnea, peripheral edema. PULMONARY: Negative for any shortness of breath, wheezing, COPD, or TB exposure. GASTROINTESTINAL: Negative for any abdominal pain, nausea, vomiting, bright red blood per rectum, melena. GENITOURINARY: Negative for any dysuria, hematuria, incontinence. INTEGUMENTARY: Negative for any rashes, cuts, insect bites. RHEUMATOLOGIC: Negative for any joint pains, photosensitive rashes, history of vasculitis or kidney problems. HEMATOLOGIC: Negative for any abnormal bruising, frequent infections or bleeding. Vital Signs (last 8hr) Date Time Temp Pulse Resp B/P (MAP) Pulse Ox O2 Delivery O2 Flow Rate FiO2 05/03/25 13:07 97.9 89 18 121/42 93 Room Air 05/03/25 11:44 20 N/Cannula Low lpm 3.0 32 05/03/25 11:00 97.7 76 20 113/54 94 Nasal Cannula 3.0 05/03/25 08:02 20 N/Cannula Low lpm 3.0 32 05/03/25 08:00 93 Nasal Cannula* 3 32 05/03/25 07:00 97.3 85 20 104/59 93 Nasal Cannula 3.0 PHYSICAL EXAM: GENERAL: Alert and oriented x 3. No acute distress. Well-nourished. EYES: EOMI. Anicteric. HENT: Moist mucous membranes. No scleral icterus. No cervical lymphadenopathy. LUNGS: Clear to auscultation bilaterally. No accessory muscle use. CARDIOVASCULAR: Regular rate and rhythm. No murmur. No JVD. ABDOMEN: Soft, non-tender and non-distended. No palpable masses. EXTREMITIES: No edema. Non-tender.?SKIN: No rashes or lesions. Warm. NEUROLOGIC: No focal neurological deficits. CN II-XII grossly intact, but not individually tested. PSYCHIATRIC: Cooperative. Appropriate mood and affect. Current Medications Medications (Trade) Dose Ordered Sig/Checo Route PRN Reason Start Time Stop Time Status Last Admin Dose Admin Acetaminophen (TYLenol 325MG TAB) 650 mg Q6H PRN PO FEVER/pain 1-3 04/19/25 22:00 05/19/25 21:59 04/21/25 02:20 650 MG Benzonatate (Tessalon 100mg Caps) 100 mg Q8H PRN PO COUGH 05/03/25 11:00 06/02/25 10:59 05/03/25 11:32 100 MG Cefepime HCl (MAXipime 2 gm vial) 2 gm Q8H IVPB 04/22/25 13:00 04/30/25 13:07 DC 04/30/25 04:27 2 GM Cefepime HCl (MAXipime 2 gm vial) 2 gm Q8H IVPB 04/30/25 16:00 05/01/25 12:05 DC 05/01/25 00:34 2 GM Ceftriaxone Sodium (ROCEphine 1G INJ) 1 gm Q24H IVPB 04/20/25 10:00 04/22/25 12:41 DC 04/22/25 10:53 1 GM Dexamethasone Sodium Phosphate (dexaMETHasone 4MG/ML 1ML VIAL) 10 mg Q24H IV 05/01/25 17:00 05/02/25 09:13 DC 05/01/25 17:22 10 MG Dexamethasone Sodium Phosphate (dexaMETHasone 10MG/ML 1ML VIAL) 10 mg Q24H IV 05/02/25 17:00 05/31/25 16:59 05/02/25 16:57 10 MG Dextrose 1,000 ml @ 50 mls/hr Q20H IV 04/25/25 08:00 04/25/25 16:53 DC 04/25/25 10:38 100 MLS/HR Doxycycline Hyclate 250 ml @ 125 mls/hr Q12H IV 04/21/25 08:30 04/22/25 12:41 DC 04/22/25 08:14 125 MLS/HR Enoxaparin Sodium (Lovenox) 40 mg DAILY SQ 04/20/25 09:00 04/22/25 20:00 DC 04/22/25 08:14 40 MG Enoxaparin Sodium (Lovenox) 40 mg Q12H SQ 04/22/25 21:00 04/27/25 13:24 DC 04/27/25 08:10 40 MG Famotidine (Pepcid 20mg Vial) 20 mg BID IV 05/02/25 21:00 06/01/25 20:59 05/03/25 10:25 20 MG Famotidine (Pepcid 20mg Tab) 20 mg DAILY PO 04/20/25 09:00 05/02/25 12:03 DC 04/30/25 09:23 20 MG Fluconazole (DiFLUCan 100 mg TAB) 200 mg Q24H PO 05/01/25 12:30 05/02/25 12:03 DC Fluconazole/ Sodium Chloride (DiFLUCan 200 MG/ NS 100 ML) 200 mg Q24H IVPB 05/02/25 12:00 06/01/25 11:59 05/03/25 11:32 200 MG Furosemide (LASix 20MG VIAL) 20 mg Q12H IV 04/29/25 11:00 05/29/25 10:59 05/03/25 10:25 20 MG Furosemide (LASix 20MG VIAL) 20 mg Q8H IV 04/24/25 19:00 04/25/25 03:01 DC 04/25/25 03:06 20 MG Heparin Sodium (Porcine) (HEParin 5,000 UNIT VIAL) *calculation based on ACTUAL B... AD PRN IV HEPARIN PROTOCOL 04/27/25 14:00 05/27/25 13:59 Heparin Sodium/ Dextrose 250 ml @ 0 mls/hr Q6H IV 04/27/25 14:00 05/27/25 13:59 05/02/25 16:59 19.17 MLS/HR Hydralazine HCl (APRESOLine 20MG INJ) 5 mg Q6H PRN IV For:SBP above 160;DBP above 90 04/20/25 16:00 05/20/25 15:59 Hydralazine HCl (APRESOLine 20MG INJ) 10 mg Q6H PRN IV For:SBP above 160;DBP above 90 04/19/25 22:00 04/20/25 10:52 DC Hydromorphone HCl (DiLAUDid 0.5MG INJ) 0.5 mg Q4H PRN IVP SEVERE PAIN (7-10) 04/22/25 20:00 04/27/25 19:59 DC Ipratropium [place] (AtrovENT UD) 0.5 MG Q6H PRN IH SHORTNESS OF BREATH 04/28/25 19:30 05/28/25 19:29 04/29/25 11:10 0.5 MG Iron Sucrose (VenoFER) 200 mg DAILY IV 04/26/25 09:00 04/28/25 11:00 DC 04/28/25 09:20 200 MG Ketorolac Tromethamine (toRADol) 15 mg Q6H PRN IM MODERATE PAIN (4-6) 04/30/25 11:30 05/05/25 11:29 Ketorolac Tromethamine (toRADol) 15 mg Q6H PRN IV MODERATE PAIN (4-6) 04/20/25 11:00 04/22/25 19:58 DC 04/20/25 22:08 15 MG Labetalol HCl (TRANdate 20MG SYG) 10 mg Q6H PRN IV SUSTAINED HR >120 04/23/25 00:00 05/23/25 00:00 Lactated Ringer's 1,000 ml @ 50 mls/hr Q20H IV 04/21/25 12:30 04/25/25 07:47 DC 04/24/25 02:58 75 MLS/HR Lactated Ringer's 1,000 ml @ 100 mls/hr Q10H IV 04/19/25 22:00 04/20/25 10:52 DC 04/21/25 12:40 100 MLS/HR Lactulose (Constulose 20gm/ 30ml Udcup) 20 gm ACHS PRN PO CONSTIPATION 04/29/25 20:00 112/25 13:06 DC 04/30/25 09:33 20 GM Lactulose (Constulose 20gm/ 30ml Udcup) 20 gm BID PRN PO CONSTIPATION 04/19/25 22:00 04/29/25 19:41 DC Lactulose (Constulose 20gm/ 30ml Udcup) 20 gm Q6HWA PRN PO CONSTIPATION 04/30/25 13:00 05/30/25 12:59 Lidocaine (Lidocaine Patch 4%) 1 each DAILY TP 04/21/25 09:00 05/21/25 08:59 05/03/25 10:25 1 EACH Magnesium Sulfate 50 ml @ 0 mls/hr PROTOCOL IV 04/21/25 08:30 05/21/25 08:29 04/24/25 06:11 25 MLS/HR Meropenem (Merrem 1gm) 1 gm Q8H IVPB 05/01/25 12:30 05/02/25 12:29 DC 05/02/25 04:15 1 GM Metoclopramide HCl (regLAN 10MG IV) 10 mg Q6H6 IVP 05/01/25 18:00 05/31/25 17:59 05/03/25 11:32 10 MG Metronidazole/ Sodium Chloride 100 ml @ 100 mls/hr Q8H6 IVPB 04/22/25 14:00 05/02/25 13:59 DC 05/02/25 09:55 100 MLS/HR Morphine Sulfate (morPHINE 4MG SYG) 4 mg Q4H PRN IVP SEVERE PAIN (7-10) 04/19/25 22:00 04/20/25 10:52 DC Nystatin (NystOP 15 GM POWDER) 1 APPLICATION BID TP 04/26/25 14:00 05/26/25 13:59 05/03/25 10:25 1 APPL Ondansetron HCl (zoFRAN 4MG INJ) 4 mg Q6H PRN IV NAUSEA/VOMITING 04/19/25 22:00 05/19/25 21:59 04/24/25 22:19 4 MG Pharmacy Profile Note (Pharmacy Communication) 1 each ONCE MISC 05/01/25 12:30 05/01/25 12:11 DC Potassium Chloride 100 ml @ 100 mls/hr PROTOCOL PRN IV hypokalemia 05/01/25 21:00 05/31/25 20:59 05/01/25 22:29 100 MLS/HR Promethazine HCl (Phenergan) 12.5 mg Q8H5 PRN IM NAUSEA/VOMITING 04/22/25 12:30 05/22/25 12:29 04/22/25 12:25 12.5 MG Sodium Chloride 500 ml @ 0 mls/hr Q0M STAT IV 04/22/25 13:17 04/22/25 13:22 DC 04/22/25 14:39 600 MLS/HR Vancomycin HCl 250 ml @ 125 mls/hr Q24H IV 05/01/25 05:00 05/11/25 04:59 05/03/25 05:41 125 MLS/HR Vancomycin HCl 250 ml @ 125 mls/hr Q8H IV 04/29/25 21:00 04/30/25 14:25 DC 04/30/25 05:52 125 MLS/HR Vancomycin HCl (Vancomycin Protocol) 1 each AD IV 04/22/25 15:00 04/23/25 22:23 DC Vancomycin HCl (Vancomycin Protocol) 1 each AD IV 04/29/25 11:00 05/13/25 10:59 LABORATORY: [ ] Hematology Labs: Test 05/05/25 04:38 Range/Units White Blood Count 15.6 H 4.8-10.8 K/uL Red Blood Count 3.94 L 4.50-6.20 MIL/uL Hemoglobin 9.4 L 14.0-18.0 g/dL Hematocrit 31.8 L 42-54 % Mean Corpuscular Volume 80.7 79-99 fL Mean Corpuscular Hemoglobin 23.9 L 27.0-33.0 pg Mean Corpuscular Hemoglobin Concent 29.6 L 32.0-36.0 g/dL Red Cell Distribution Width 21.4 H 11.0-15.5 % Platelet Count 300 130-400 K/uL Mean Platelet Volume 10.4 7.5-10.5 fL Nucleated Red Blood Cells 0.0 0.0-0.19 % Red Blood Cell Morphology See comments Chemistry Labs: Test 05/05/25 11:46 05/05/25 04:38 Range/Units Whole Blood Glucose 153 H 70-110 MG/DL Sodium Level 134 L 136-145 mmol/L Potassium Level 4.7 3.5-5.1 mmol/L Chloride Level 98 L 101-111 mmol/L Carbon Dioxide Level 27 21-32 mmol/L Blood Urea Nitrogen 33 H 7-18 mg/dL Creatinine 0.7 0.5-1.3 mg/dL Glomerular Filtration Rate Calc 123 >90 mL/min Random Glucose 168 H 70-105 mg/dL Total Calcium 8.3 L 8.5-10.1 mg/dL Magnesium Level 2.30 1.80-2.40 mg/dL Total Bilirubin 0.6 0.2-1.0 mg/dL Aspartate Amino Transf (AST/SGOT) 89 H 10-37 U/L Alanine Aminotransferase (ALT/SGPT) 63 # 12-78 U/L Alkaline Phosphatase 157 H 50-136 U/L Total Protein 7.3 6.0-8.3 g/dL Albumin 2.2 L 3.5-5.0 g/dL Coagulation Labs: Test 05/05/25 09:55 Range/Units Activated Partial Thromboplast Time 64.1 #H 26.3-35.5 [facility] / [facility]IOLOGY: [address] [place] [address] IMAGING REPORT Signed PATIENT: MARTY BARRON MR#: [id number] : 1990 SEX: M AGE: 35 LOCATION: [facility] ORDER 1046 STATUS: ADM IN REPORT#: [id number] SERVICE 1045 REASON: RULE OUT BOWEL OBSTRUCTION OR ILIEUS ORDERING PHYSICIAN: TITA PETERSON MD PROCEDURE: SBFT - BOWEL SERIES SMALL BOWEL SERIES HISTORY: Status post colon resection with ostomy placement 2 months ago COMPARISON: None. TECHNIQUE: A small bowel series was performed with serial radiographs of the abdomen and pelvis obtained after oral administration of contrast. Patient was given 180 cc of Gastrografin. FINDINGS: SUPERVISOR SHAVING AND SPLITTING: No evidence for free air. No unusual calcifications detected. Small bowels are dilated air-filled suggesting of possible ileus. There are surgical clips in the right upper quadrant. After oral administration of 90 cc of Gastrografin, normal opacification of the stomach noted without evidence for malrotation. The duodenum, jejunum, and ileum appear normal in caliber. The mucosal pattern appears grossly normal, without evidence for obstruction or discrete filling defect. Transit time through the small bowel was approximately 24 hours with Gastrografin has reached large bowel and sigmoid colon. (normal is 1-4 hrs). The terminal ileum was spotted, and no strictures or masses detected. IMPRESSION: There is resolving Gastrografin small bowel follow-through with 24-hour the Gastrografin has reached sigmoid colon and transverse colon. DICTATED BY: LEXIE NG MD DATE: 05/04/251651 ELECTRONICALLY SIGNED BY: LEXIE NG MD DATE: 05/04/251657 PATIENT: MARTY BARRON MR#: [id number] : 1990 SEX: M AGE: 35 LOCATION: [facility] ORDER 2300 STATUS: ADM IN REPORT#: [id number] SERVICE 0600 REASON: decreased ostomy output ORDERING PHYSICIAN: SAROJ MAGDALENO PROCEDURE: CXR1VW - CHEST 1VW EXAM: CR Chest, 1 View. CLINICAL HISTORY: decreased ostomy output COMPARISON: 05/01/2025 FINDINGS: LUNGS: Persistent right paratracheal opacity. Right inhomogeneous airspace opacities in the mid and lower zones, stable. Mild pulmonary vascular congestion. PLEURAL SPACES: No evidence of pleural effusion or pneumothorax. MEDIASTINUM: The cardiomediastinal silhouette is within normal limits. BONES: No acute osseous abnormality. IMPRESSION: 1. Stable right paratracheal opacity and right mid and lower zone airspace opacities. 2. Mild pulmonary vascular congestion. /[place] DICTATED BY: LYNDSEY ENRIQUE MD DATE: 05/03/251719 ELECTRONICALLY SIGNED BY: LYNDSEY ENRIQUE MD DATE: 05/03/251719 PATIENT: MARTY BARRON MR#: [id number] : 1990 SEX: M AGE: 35 LOCATION: 2[facility] ORDER 1434 STATUS: ADM IN REPORT#: [id number] SERVICE 1433 REASON: RULE OUT OBSTRUCTION VS ILIEUS ORDERING PHYSICIAN: TITA PETERSON MD PROCEDURE: ABD 1VW - ABD 1VW EXAM: CR Abdomen, 4 View. CLINICAL HISTORY: RULE OUT OBSTRUCTION VS ILIEUS COMPARISON: Radiograph dated April 30, 2025 FINDINGS: Redemonstrated air-filled dilated loops of small bowel measuring up to 5.[address] imaging to exclude small bowel ileus versus a partial distal small bowel obstruction. IMPRESSION: 1. Dilated small bowel loops up to 5.0 cm, concerning for ileus or partial small bowel obstruction. CT imaging recommended for further evaluation. /[place] DICTATED BY: ANTONIO STEINBERG Jr., MD DATE: 05/01/251946 ELECTRONICALLY SIGNED BY: ANTONIO STEINBERG Jr., MD DATE: 05/01/251946 PATIENT: MARTY BARRON MR#: [id number] : 1990 SEX: M AGE: 35 LOCATION: [facility] ORDER 2300 STATUS: ADM IN REPORT#: [id number] SERVICE 0600 REASON: decreased ostomy output ORDERING PHYSICIAN: SAROJ MAGDALENO PROCEDURE: CXR1VW - CHEST 1VW EXAM: CR Chest, 1 View. CLINICAL HISTORY: Decreased ostomy output. COMPARISON: CR ??? Chest 1 View dated 04/30/25, 08:56 EST. FINDINGS: LUNGS: Persistent right paratracheal opacity with inhomogeneous airspace infiltrates in the right lung. Inhomogeneous airspace infiltrates in the left upper lung appear decreased, suggesting interval resolution. No new pulmonary consolidation or mass. PLEURAL SPACES: No pleural effusion or pneumothorax. MEDIASTINUM: Cardiomediastinal silhouette within normal limits. BONES: No acute or aggressive osseous lesion. IMPRESSION: * Persistent right paratracheal opacity with inhomogeneous right lung infiltrates. * Interval resolving left upper lung infiltrates. * No pleural effusion or pneumothorax. Comparison: Compared with prior radiograph dated 04/30/25, right-sided opacities persist while left upper lung infiltrates show partial resolution. /[place] DICTATED BY: JOSAFAT DALY MD DATE: 05/01/252324 ELECTRONICALLY SIGNED BY: JOSAFAT DALY MD DATE: 05/01/252324 PATIENT: MARTY BARRON MR#: [id number] : 1990 SEX: M AGE: 35 LOCATION: 2D ORDER 99 STATUS: ADM IN [facility] REPORT#: [id number] SERVICE 9 REASON: decreased ostomy output ORDERING PHYSICIAN: SAROJ MAGDALENO PROCEDURE: CXR1VW - CHEST 1VW EXAM: CHEST RADIOGRAPH, 1 VIEW Technique: Single frontal expiratory view of the chest. Clinical Information: Decreased ostomy output. Findings: Lungs and large airways: Mild patchy opacities are present in both upper lobes; a right paratracheal suprahilar opacity is again seen; no lobar collapse is identified. Pleura: No pleural effusion or pneumothorax is identified. Heart and mediastinum: Cardiomediastinal silhouette is within normal limits. Bones/joints: No acute osseous abnormality is identified. Impression: * Comparison: Compared with chest radiograph dated 04/28/2025 07:29 EDT, bilateral basilar consolidation with associated mild atelectasis has resolved; mild patchy opacities in both upper lobes and the right paratracheal suprahilar opacity are unchanged; no pleural effusion or pneumothorax is identified. * Mild bilateral upper-lobe opacities, stable???correlate clinically for resolving infection or inflammatory change. * Expiratory acquisition limits assessment of lung volumes and may accentuate vascular crowding. /[place] DICTATED BY: JOSAFAT DALY MD DATE: 05/01/25207 ELECTRONICALLY SIGNED BY: JOSAFAT DALY MD DATE: 05/01/25207 PATIENT: MARTY BARRON MR#: [id number] : 1990 SEX: M AGE: 35 LOCATION: 2[facility] ORDER 99 STATUS: ADM IN REPORT#: [id number] SERVICE 0600 REASON: decreased ostomy output ORDERING PHYSICIAN: SAROJ MAGDALENO PROCEDURE: ABD 1VW - ABD 1VW ADDENDUM REPORT ADDENDUM: Results were shared by telephone at 06:34 am on 05-01-25 and acknowledged by Patients Nurse Mr.Jose Hanks /[facility] EXAM: CR Abdomen, multiple views. CLINICAL HISTORY: Decreased ostomy output. COMPARISON: None provided. FINDINGS: Multiple dilated small bowel loops with multiple air-fluid levels. Large bowel loops are not dilated. Features of small bowel obstruction. Excreted contrast is identified within the urinary bladder. No free air is evident. No abnormal calcification. No aggressive appearing osseous lesion. IMPRESSION: Multiple dilated small bowel loops with multiple air-fluid levels. Large bowel loops are not dilated. The features concerning bowel obstruction or ileus. Recommend a barium follow-through study for further evaluation. /[facility] DICTATED BY: ANTONIO STEINBERG Jr., MD DATE: 05/01/25636 ELECTRONICALLY SIGNED BY: DATE: EXAM: CR Abdomen, multiple views. CLINICAL HISTORY: Decreased ostomy output. COMPARISON: None provided. FINDINGS: Multiple dilated small bowel loops with multiple air-fluid levels. Large bowel loops are not dilated. Features of small bowel obstruction. Excreted contrast is identified within the urinary bladder. No free air is evident. No abnormal calcification. No aggressive appearing osseous lesion. IMPRESSION: Multiple dilated small bowel loops with multiple air-fluid levels. Large bowel loops are not dilated. The features concerning bowel obstruction or ileus. Recommend a barium follow-through study for further evaluation. /[facility] DICTATED BY: ANTONIO STEINBERG Jr., MD DATE: 05/01/25622 ELECTRONICALLY SIGNED BY: ANTONIO STEINBERG Jr., MD DATE: 05/01/25622 PATIENT: MARTY BARRON MR#: [id number] : 1990 SEX: M AGE: 35 LOCATION: 2DH ORDER 9 STATUS: ADM IN [facility] REPORT#: [id number] SERVICE 0307 REASON: Right arm PICC, concern for DVT, swelling, pain, and redness noted ORDERING PHYSICIAN: COOPER STUART JEWEL LATHE OPERATOR PROCEDURE: VENOUS UNI - US VENOUS DOPPLER UNILATERAL ADDENDUM REPORT ADDENDUM: Results were shared by telephone at 14:06 pm on 04-27-25 and acknowledged by Pt Nurse, Ms Georgiana Solomon /[facility] EXAM: ULTRASOUND VENOUS DOPPLER, RIGHT UPPER EXTREMITY Technique: Duplex ultrasound with grayscale imaging, compression maneuvers, color Doppler, and spectral Doppler sampling of the right upper extremity veins. Clinical Information: Right arm peripherally inserted central catheter; swelling, pain, and redness; concern for deep venous thrombosis. Findings: Right axillary vein: Noncompressible with intraluminal echogenic thrombus and absent color Doppler filling, consistent with thrombosis. Right brachial veins: Thrombus present consistent with deep venous thrombosis. Right cephalic vein: Partial (non-occlusive) thrombosis. PICC: Indwelling right upper extremity peripherally inserted central catheter present; catheter-associated thrombosis suspected based on thrombus distribution. Tip location not assessed on this examination. Additional comments: No other specific venous segment findings were provided for review. Impression: * Right upper extremity catheter-associated deep venous thrombosis involving the axillary vein and brachial veins. * Non-occlusive thrombosis of the right cephalic vein (superficial venous thrombosis). * Correlate clinically for pulmonary embolism risk; management typically includes anticoagulation per institutional protocol and assessment of need for PICC removal or exchange depending on clinical requirements. /[place] DICTATED BY: NATONIO STEINBERG Jr., MD DATE: 04/27/25 1410 ELECTRONICALLY SIGNED BY: DATE: EXAM: ULTRASOUND VENOUS DOPPLER, RIGHT UPPER EXTREMITY Technique: Duplex ultrasound with grayscale imaging, compression maneuvers, color Doppler, and spectral Doppler sampling of the right upper extremity veins. Clinical Information: Right arm peripherally inserted central catheter; swelling, pain, and redness; concern for deep venous thrombosis. Findings: Right axillary vein: Noncompressible with intraluminal echogenic thrombus and absent color Doppler filling, consistent with thrombosis. Right brachial veins: Thrombus present consistent with deep venous thrombosis. Right cephalic vein: Partial (non-occlusive) thrombosis. PICC: Indwelling right upper extremity peripherally inserted central catheter present; catheter-associated thrombosis suspected based on thrombus distribution. Tip location not assessed on this examination. Additional comments: No other specific venous segment findings were provided for review. Impression: * Right upper extremity catheter-associated deep venous thrombosis involving the axillary vein and brachial veins. * Non-occlusive thrombosis of the right cephalic vein (superficial venous thrombosis). * Correlate clinically for pulmonary embolism risk; management typically includes anticoagulation per institutional protocol and assessment of need for PICC removal or exchange depending on clinical requirements. /[place] DICTATED BY: ANTONIO STEINBERG Jr., MD DATE: 04/27/25 135 ELECTRONICALLY SIGNED BY: ANTONIO STEINBERG Jr., MD DATE: 04/27/25 135 PATIENT: MARTY BARRON MR#: [id number] : 1990 SEX: M AGE: 35 LOCATION: 2[facility] ORDER 1441 STATUS: ADM IN REPORT#: [id number] SERVICE 0000 REASON: rule out endocarditis ORDERING PHYSICIAN: SAROJ MAGDALENO PROCEDURE: ECHO CMP - ECHO 2-D COMPLETE APPROVED REPORT EXAM: Two-dimensional and M-mode echocardiogram with Doppler and color Doppler. INDICATION ICD: Rule out endocarditis, rule out clot or pulmonary embolism 2D Dimensions RVDd 3.6 cm LVEF(%) 56.6 (>50%) LVED Vol(simp.) 103.0 mL IVSd 0.9 (0.7-1.1cm) FS(%) 30 % LVES Vol(simp.) 45.0 mL LVDd 4.8 (3.8-5.6cm) LA (2D) 3.3 (1.6-4.0cm) LVEF(%, simp.) 56 % PWd 1.1 (0.7-1.1cm) Ao Root(2D) 3.4 (2.0-3.7cm) LA ESV INDEX (BP) 17.03 mL/m2 IVSs 1.0 cm LVOT diam 2.6 (1.8-2.4cm) LVDs 3.4 (2.5-4.0cm) IVC diam 1.1 cm PWs 1.0 cm Deformation Strain Apical 4 -14.1 % Apical 2 -15.4 % Apical 3 -13.0 % Global Strain -14.2 % M-Mode Dimensions EPSS 0.6 cm LA (MM) 3.8 (1.6-4.0cm) Ao Root(MM) 3.8 (2.0-3.7cm) Aortic Valve AoV Vmax 1.5 m/s Ao Peak GR 9.3 mmHg LVOT Vmax 1.3 m/s AoV VTI 0.2 m Ao Mean GR 5.5 mmHg LVOT VTI 0.18 m AARON (VMAX) 4.54 cm2 AARON (VTI) 4.4 cm2 Mitral Valve MV E Vmax 70.7 cm/s DECEL Time 158 ms MV A Vmax 67.4 cm/s P 1/2 T 46 ms E/A ratio 1.0 MVA (PHT) 4.7 cm2 TDI E/E' Medial 6.3 E/E' Lateral 6.1 Medial E' Peak V 11.25 cm/s Lateral E' Peak V 11.56 cm/s Pulmonary Valve PV Vmax 1.6 m/s PV VTI 0.19 m PV Mean GR 5.0 mmHg PV Peak GR 10.4 mmHg Tricuspid Valve TR Vmax 3.6 m/s RAP (EST) 3 mmHg RVSP 64.1 mmHg TR Peak GR 61.1 mmHg Left Ventricle The left ventricle is normal size. GLS -14.0% There is normal left ventricular wall thickness. LVEF is 50-55%. No left ventricle thrombus noted on this study. The left ventricular diastolic function is normal. Right Ventricle The right ventricle is normal size. The right ventricular systolic function is normal. Atria The left atrium size is normal. There is no mass or thrombus suspected in the left atrium. The right atrium size is normal. There is no mass or thrombus suspected in the right atrium. Aortic Valve The aortic valve is trileafelt normal in structure. No aortic regurgitation is present. No aortic valvular vegetation noted. There is no aortic valvular stenosis. Mitral Valve The mitral valve is normal in structure. There is no mitral valve regurgitation noted. There are no mitral valve vegetation noted. There is no mitral valve stenosis. Tricuspid Valve The tricuspid valve is normal in structure. There is mild tricuspid valve regurgitation noted by color Doppler. RVSP 61mmHg. There is no tricuspid valve vegetation. Pulmonic Valve The pulmonary valve is not well visualized. There is no pulmonic valvular regurgitation. Great Vessels The aortic root is normal in size. The IVC is normal in size and collapses >50% with inspiration. Pericardium There is no pericardial effusion. Other Information Quality : Technically difficult study due to body habitus Rhythm : NSR Conclusion LVEF is 50-55%. No left ventricle thrombus noted on this study. No intracardiac masses No valvular vegetations DICTATED BY: ZELDA MARTINEZ DO DATE: 04/23/2523 ELECTRONICALLY SIGNED BY: ZELDA MARTINEZ DO DATE: 04/23/25 1459 PATIENT: MARTY BARRON MR#: [id number] : 1990 SEX: M AGE: 35 LOCATION: 2DH ORDER 230 STATUS: ADM IN REPORT#: [id number] SERVICE 0600 REASON: multiple lung nodules suggestive of mets. recntly diagnosed adenoca colon. ORDERING PHYSICIAN: KRISTIAN MORTON MD PROCEDURE: BXLUNG - CT BX LUNG/MEDIASTINUM NDL IR PERCUTANEOUS CT-GUIDED BIOPSY OF left anterior rib mass: CLINICAL HISTORY: This is a 35 [id number] Male with multiple lesion seen in the lungs there is an expansile mass seen in the left anterior rib for CT-guided biopsy of left anterior rib mass. The risk and benefit was explained to the patient. The risks include infection and possible bleed. The patient consented to the procedure. PROCEDURE: Patient was placed in supine position. Patient was given IV conscious sedation with 2 mg of Versed and 50 MCG of fentanyl.. Under CT guidance left anterior rib lesion was localized. After sterile prep and drapa, using 1% xylocaine for local anesthetic, using a 18-gauge Bard gun, a total of 3 core biopsies were obtained. The specimen was sent for histology and cell block. The patient tolerated the procedure and post-biopsy demonstrated no bleed. There is no evidence of any pneumothorax. IMPRESSION: PERCUTANEOUS CT-GUIDED BIOPSY OF left anterior rib WITH SPECIMENS SENT FOR Histology and cell block.. THE PATIENT TOLERATED PROCEDURE WELL. PATHOLOGY REPORT IS PENDING. If this path report does not demonstrate malignancy I would recommend lung biopsy DICTATED BY: LEXIE NG MD DATE: 04/26/25 1111 ELECTRONICALLY SIGNED BY: LEXIE NG MD DATE: 04/26/25 1116 PATIENT: MARTY BARRON MR#: [id number] : 1990 SEX: M AGE: 35 LOCATION: 2AH ORDER [id number] STATUS: ADM IN REPORT#: [id number] SERVICE 1056 REASON: RLQ PAIN ORDERING PHYSICIAN: TITA PETERSON MD PROCEDURE: ABD PEL WO - CT ABDOMEN/PELVIS W/O CONTRAST ADDENDUM REPORT ADDENDUM: Results were shared by telephone at 1:37 pm on 04-22-[address] David Mary /[place] EXAM: CT Abdomen and Pelvis Without IV contrast CLINICAL HISTORY: RLQ PAIN TECHNIQUE: Axial computed tomography images of the abdomen and pelvis without intravenous contrast. CONTRAST: No IV contrast. COMPARISON: None provided. FINDINGS: LUNG BASES: Multiple randomly distributed nodules in both lungs, the largest measuring 2.1 x 1.6 cm in the medial basal segment of the right lower lobe. Patchy areas of consolidation in bilateral lower lobes. Ill-defined lytic-sclerotic lesion in the left anterior aspect of the 6th rib. Dependent airway disease along bilateral lower lobes, presumed to represent basal atelectasis. LIVER: Hepatic steatosis. GALLBLADDER AND BILE DUCTS: Post cholecystectomy status. No biliary ductal dilatation is evident. PANCREAS: Unremarkable. SPLEEN: Unremarkable. ADRENAL GLANDS: Bilateral adrenal glands appear diffusely bulky, predominantly on the left side, likely adrenal gland hyperplasia. KIDNEYS, URETERS, AND BLADDER: The kidneys appear within normal limits. There is no hydronephrosis or hydroureter. No urinary calculi are seen. STOMACH AND BOWEL: There is a defect of size 5.6 cm in the left anterior abdominal wall with herniation of the descending colon and small bowel loop. There is dilatation of the herniated bowel loop up to 4.1 cm, consistent with obstruction. Thickened and irregular appearing loop of small bowel in the mid pelvis. Ischemia is not excluded. A contrast-enhanced CT is recommended. PERITONEUM: Trace-free fluid. No free air. LYMPH NODES: No lymphadenopathy is evident. REPRODUCTIVE: Unremarkable as visualized. VASCULATURE: No evidence of abdominal aortic aneurysm. BONES: Lytic lesion in the L4 vertebral body. IMPRESSION: 1. Thickened and irregular appearing loop of small bowel in the mid pelvis. Ischemia is not excluded. A contrast-enhanced CT is recommended. 2. Left anterior abdominal wall hernia with herniation of descending colon and small bowel, with bowel obstruction up to 4.1 cm. 3. Lytic lesion in L4 vertebral body. Left anterior 6th rib lytic-sclerotic lesion. 4. Multiple pulmonary nodules, the largest 2.1 cm in the right lower lobe -suspicious for metastasis. 5. Bilateral adrenal gland hyperplasia, more prominent on the left. Suggest PET-CT for further evaluation. /Sharon DICTATED BY: LYNDSEY ENRIQUE MD DATE: 04/22/25 5006 ELECTRONICALLY SIGNED BY: DATE: EXAM: CT Abdomen and Pelvis Without IV contrast CLINICAL HISTORY: RLQ PAIN TECHNIQUE: Axial computed tomography images of the abdomen and pelvis without intravenous contrast. CONTRAST: No IV contrast. COMPARISON: None provided. FINDINGS: LUNG BASES: Multiple randomly distributed nodules in both lungs, the largest measuring 2.1 x 1.6 cm in the medial basal segment of the right lower lobe. Patchy areas of consolidation in bilateral lower lobes. Ill-defined lytic-sclerotic lesion in the left anterior aspect of the 6th rib. Dependent airway disease along bilateral lower lobes, presumed to represent basal atelectasis. LIVER: Hepatic steatosis. GALLBLADDER AND BILE DUCTS: Post cholecystectomy status. No biliary ductal dilatation is evident. PANCREAS: Unremarkable. SPLEEN: Unremarkable. ADRENAL GLANDS: Bilateral adrenal glands appear diffusely bulky, predominantly on the left side, likely adrenal gland hyperplasia. KIDNEYS, URETERS, AND BLADDER: The kidneys appear within normal limits. There is no hydronephrosis or hydroureter. No urinary calculi are seen. STOMACH AND BOWEL: There is a defect of size 5.6 cm in the left anterior abdominal wall with herniation of the descending colon and small bowel loop. There is dilatation of the herniated bowel loop up to 4.1 cm, consistent with obstruction. Thickened and irregular appearing loop of small bowel in the mid pelvis. Ischemia is not excluded. A contrast-enhanced CT is recommended. PERITONEUM: Trace-free fluid. No free air. LYMPH NODES: No lymphadenopathy is evident. REPRODUCTIVE: Unremarkable as visualized. VASCULATURE: No evidence of abdominal aortic aneurysm. BONES: Lytic lesion in the L4 vertebral body. IMPRESSION: 1. Thickened and irregular appearing loop of small bowel in the mid pelvis. Ischemia is not excluded. A contrast-enhanced CT is recommended. 2. Left anterior abdominal wall hernia with herniation of descending colon and small bowel, with bowel obstruction up to 4.1 cm. 3. Lytic lesion in L4 vertebral body. Left anterior 6th rib lytic-sclerotic lesion. 4. Multiple pulmonary nodules, the largest 2.1 cm in the right lower lobe -suspicious for metastasis. 5. Bilateral adrenal gland hyperplasia, more prominent on the left. Suggest PET-CT for further evaluation. /Sharon DICTATED BY: LYNDSEY ENRIQUE MD DATE: 04/22/251332 ELECTRONICALLY SIGNED BY: LYNDSEY ENRIQUE MD DATE: 04/22/251332 ASSESSMENT: Acute on chronic renal failure Severe sepsis with MODS, resolved Leukocytosis Gram-positive cocci bacteremia Status post left rib biopsy by IR on 04/26/2025 New right upper lobe spiculated infiltrative mass measuring 5.4 x 4.6 cm infiltrating mediastinal pleura and albumin in the right main pulmonary artery Bulky mediastinal lymphadenopathy with the largest node measuring 4 cm involving the right paratracheal, prevascular, and subcarinal stations Multiple bilateral spiculated pulmonary nodules consistent with metastatic disease progression Bilateral marked diffuse adrenal enlargement likely metastatic or hyperplastic Left iliac fossa 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 Right upper extremity DVT involving the axillary and brachial veins Small-bowel obstruction Stage IV colorectal cancer with metastatic disease to the lung, pathology consistent with moderately differentiated adenocarcinoma, POA PLAN: Labs, diagnostic, radiologic exams reviewed and interpreted by myself and supervising physician. We have reviewed external records in detail Oncology work-up is ongoing BiPAP as necessary, for respiratory distress Monitor blood pressure adjust medication doses as needed Avoid hypotensive episodes May use Dilaudid 0.5 mg IV every 6 hours as needed for severe pain Strict intake, output, and daily weight should be monitored Please renally adjust medications Avoid nephrotoxic and nonsteroidal drugs Avoid contrast if possible Will continue to monitor renal function, anemia, electrolytes Treatment plan discussed with patient Questions were answered We have discussed with the other team physicians in detail about the care plan We will continue to monitor the patient closely KENNY LIU May 05, 2025 12:32
--- NOTE | 2025-05-05 13:04 | PN ---
35 year old morbidly obese male with a past medical history of Colon mass s/p resection with colostomy placement diagnosed with small bowel obstruction ,severe sepsis and multisystem dysfunction .CT chest/Abdomen/Pelvis revealed Left iliac fossa Spigelian hernia containing small and large bowel with mechanical small bowel obstruction.New right upper lobe spiculated infiltrative mass measuring 5.4 x 4.6 cm infiltrating mediastinal pleura and albumin in the right main pulmonary artery , Bulky mediastinal lymphadenopathy with the largest node measuring 4 cm involving the right paratracheal, prevascular, and subcarinal stations and Multiple bilateral spiculated pulmonary nodules consistent with metastatic disease progression was also seen. Patient with significant failure to thrive. It seems the patient also have infection. White blood count continue to be high at 26.5 K. This patient look like you have possible partial bowel obstruction. Patient was started on Reglan and dexamethasone. With the patient actually started having bowel movement. Small bowel x-ray was done Biopsy from the lung consistent with adenocarcinoma. PHYSICAL EXAM EYES: Anicteric. Pupils equal and reactive. HENT: No oral thrush seen, moist Oral mucosa NECK: Supple, no JVD or thyromegaly. LUNGS: Good air entry. No rales, no rhonchi. CARDIOVASCULAR: S1, S2 regular. No murmur heard. ABDOMEN: Soft, non tender, bowel sounds present, no organomegaly CENTRAL NERVOUS SYSTEM: Awake, alert, oriented x 3. No focal deficits. SKIN: No rashes, no swelling. LYMPHATICS: No peripheral lymphadenopathy MUSCULOSKELETAL: No joint swelling, erythema or tenderness. EXTREMITIES: No cyanosis or clubbing BACK: No deformity, no pressure ulcer. 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 Failure to thrive 6. Leukocytosis with white blood count 21.5 K 7. Anemia with hemoglobin level 9.5 g/deciliter 8. Possible partial bowel obstruction. Small bowel x-ray was done PLAN 1.Pathology report from rectal mass biopsy - moderately differentiated adenocarcinoma . The nodule from the lung with biopsy consistent with adenocarcinoma so this patient have stage IV Colorectal cancer with metastatic disease to the lung 2.Peripheral bloood smear shows microcytic hypochromic anemia consistent with iron deficiency anemia . There is teardrop cell, pelger huet cell and rouleaux formation .Increased number of WBCs observed with neutrophilia and hypersegmented neutrophils suggestive of underlying infection . Band cells observed. Platelet morphology and count within normal limits . 3. This patient with significant failure to thrive. With the patient cannot sit on the side of the bed. I tried to explain to him and to the family that he need to start walking and exercise as a cannot treat him with palliative chemo. 4. This patient with significant failure to thrive. This patient will need case management to help for physical therapy and possibly placement 5. Physical therapy for evaluation and treatment. 6. This patient with partial bowel obstruction. This patient To continue Reglan 10 mg Q6. Patient also to receive dexamethasone 10 mg IV once daily. If the patient had partial response this patient could be respond. But if the patient have complete obstruction then this patient could start have nausea vomiting Small bowel x-ray was done. We will follow-up with the result closely. Vitals/Labs Vital Signs Date Time Temp Pulse Resp B/P (MAP) Pulse Ox O2 Delivery O2 Flow Rate FiO2 05/05/25 12:07 96 Nasal Cannula* 2 28 05/05/25 08:00 97.3 67 18 153/104 Laboratory Tests 05/05/25 04:38 Medications Current Medications Ketorolac Tromethamine 30 mg ONCE ONCE IM Last administered on 04/19/25at 20:26; Start 04/19/25 at 20:00; Stop 04/19/25 at 20:01; Status DC Acetaminophen 1,000 mg ONCE ONCE PO Last administered on 04/19/25at 20:53; Start 04/19/25 at 20:30; Stop 04/19/25 at 20:34; Status DC Lidocaine 1 each ONCE ONCE TP Last administered on 04/19/25at 20:52; Start 04/19/25 at 20:30; Stop 04/19/25 at 20:34; Status DC Acetaminophen 650 mg Q6H PRN PO Last administered on 05/05/25at 11:49; Start 04/19/25 at 22:00; Stop 05/19/25 at 21:59 Enoxaparin Sodium 40 mg DAILY SQ Last administered on 04/22/25at 08:14; Start 04/20/25 at 09:00; Stop 04/22/25 at 20:00; Status DC Famotidine 20 mg DAILY PO Last administered on 04/30/25at 09:23; Start 04/20/25 at 09:00; Stop 05/02/25 at 12:03; Status DC Hydralazine HCl 10 mg Q6H PRN IV; Start 04/19/25 at 22:00; Stop 04/20/25 at 10:52; Status DC Lactated Ringer's 1,000 ml @ 100 mls/hr Q10H IV Last administered on 04/21/25at 12:40; Start 04/19/25 at 22:00; Stop 04/20/25 at 10:52; Status DC Lactulose 20 gm BID PRN PO; Start 04/19/25 at 22:00; Stop 04/29/25 at 19:41; Status DC Morphine Sulfate 4 mg Q4H PRN IVP; Start 04/19/25 at 22:00; Stop 04/20/25 at 10:52; Status DC Ondansetron HCl 4 mg Q6H PRN IV Last administered on 04/24/25at 22:19; Start 04/19/25 at 22:00; Stop 05/19/25 at 21:59 Ceftriaxone Sodium 1 gm Q24H IVPB Last administered on 04/22/25at 10:53; Start 04/20/25 at 10:00; Stop 04/22/25 at 12:41; Status DC Hydralazine HCl 5 mg Q6H PRN IV; Start 04/20/25 at 16:00; Stop 05/20/25 at 15:59 Ketorolac Tromethamine 15 mg Q6H PRN IV Last administered on 04/20/25at 22:08; Start 04/20/25 at 11:00; Stop 04/22/25 at 19:58; Status DC Lidocaine 1 each DAILY TP Last administered on 05/05/25at 10:08; Start 04/21/25 at 09:00; Stop 05/21/25 at 08:59 Magnesium Sulfate 50 ml @ 0 mls/hr PROTOCOL IV Last administered on 04/24/25at 06:11; Start 04/21/25 at 08:30; Stop 05/21/25 at 08:29 Potassium Chloride 40 meq ONCE ONCE PO Last administered on 04/21/25at 12:06; Start 04/21/25 at 08:30; Stop 04/21/25 at 08:31; Status DC Doxycycline Hyclate 250 ml @ 125 mls/hr Q12H IV Last administered on 04/22/25at 08:14; Start 04/21/25 at 08:30; Stop 04/22/25 at 12:41; Status DC Lactated Ringer's 1,000 ml @ 50 mls/hr Q20H IV Last administered on 04/24/25at 02:58; Start 04/21/25 at 12:30; Stop 04/25/25 at 07:47; Status DC Gadoterate Meglumine 10 mmol STK-MED ONCE IV; Start 04/21/25 at 13:44; Stop 04/21/25 at 13:44; Status DC Promethazine HCl 12.5 mg Q8H5 PRN IM Last administered on 04/22/25at 12:25; Start 04/22/25 at 12:30; Stop 05/22/25 at 12:29 Cefepime HCl 2 gm Q8H IVPB Last administered on 04/30/25at 04:27; Start 04/22/25 at 13:00; Stop 04/30/25 at 13:07; Status DC Metronidazole/ Sodium Chloride 100 ml @ 100 mls/hr Q8H6 IVPB Last administered on 05/02/25at 09:55; Start 04/22/25 at 14:00; Stop 05/02/25 at 13:59; Status DC Sodium Chloride 500 ml @ 0 mls/hr Q0M STAT IV Last administered on 04/22/25at 14:39; Start 04/22/25 at 13:17; Stop 04/22/25 at 13:22; Status DC Diatrizoate Meglum/ Diatrizoate Sod 30 ml STK-MED ONCE .ROUTE; Start 04/22/25 at 13:38; Stop 04/22/25 at 13:38; Status DC Vancomycin HCl 1 each AD IV; Start 04/22/25 at 15:00; Stop 04/23/25 at 22:23; Status DC Vancomycin HCl 500 ml @ 166.667 mls/hr ONCE ONCE IV Last administered on 04/22/25at 15:10; Start 04/22/25 at 15:00; Stop 04/22/25 at 17:59; Status DC Iohexol 75 ml STK-MED ONCE IV; Start 04/22/25 at 15:29; Stop 04/22/25 at 15:29; Status DC Hydromorphone HCl 0.5 mg Q4H PRN IVP; Start 04/22/25 at 20:00; Stop 04/27/25 at 19:59; Status DC Enoxaparin Sodium 40 mg Q12H SQ Last administered on 04/27/25at 08:10; Start 04/22/25 at 21:00; Stop 04/27/25 at 13:24; Status DC Labetalol HCl 10 mg ONCE ONCE IV Last administered on 04/23/25at 00:10; Start 04/23/25 at 00:00; Stop 04/23/25 at 00:02; Status DC Labetalol HCl 10 mg Q6H PRN IV; Start 04/23/25 at 00:00; Stop 05/23/25 at 00:00 Vancomycin HCl 250 ml @ 125 mls/hr ONCE ONCE IV Last administered on 04/23/25at 17:55; Start 04/23/25 at 18:00; Stop 04/23/25 at 22:23; Status DC Promethazine HCl 25 mg ONCE ONCE IM Last administered on 04/24/25at 00:59; Start 04/24/25 at 01:00; Stop 04/24/25 at 01:01; Status DC Furosemide 20 mg Q8H IV Last administered on 04/25/25at 03:06; Start 04/24/25 at 19:00; Stop 04/25/25 at 03:01; Status DC Dextrose 1,000 ml @ 50 mls/hr Q20H IV Last administered on 04/25/25at 10:38; Start 04/25/25 at 08:00; Stop 04/25/25 at 16:53; Status DC Iron Sucrose 200 mg DAILY IV Last administered on 04/28/25at 09:20; Start 04/26/25 at 09:00; Stop 04/28/25 at 11:00; Status DC Midazolam HCl 2 mg STK-MED ONCE .ROUTE Last administered on 04/26/25at 10:08; Start 04/26/25 at 09:01; Stop 04/26/25 at 09:01; Status DC Fentanyl Citrate 100 mcg STK-MED ONCE .ROUTE Last administered on 04/26/25at 10:06; Start 04/26/25 at 09:01; Stop 04/26/25 at 09:01; Status DC Nystatin 1 APPLICATION BID TP Last administered on 05/04/25at 20:39; Start 04/26/25 at 14:00; Stop 05/26/25 at 13:59 Heparin Sodium (Porcine) *calculation based on ACTUAL B... AD PRN IV; Start 04/27/25 at 14:00; Stop 05/27/25 at 13:59 Heparin Sodium/ Dextrose 250 ml @ 0 mls/hr Q6H IV Last administered on 05/05/25at 05:07; Start 04/27/25 at 14:00; Stop 05/27/25 at 13:59 Heparin Sodium (Porcine) 10,000 unit ONCE ONCE IV Last administered on 04/27/25at 15:53; Start 04/27/25 at 15:30; Stop 04/27/25 at 15:37; Status DC Ipratropium [place] 0.5 MG Q6H PRN IH Last administered on 04/29/25at 11:10; Start 04/28/25 at 19:30; Stop 05/28/25 at 19:29 Furosemide 20 mg Q12H IV Last administered on 05/05/25at 10:09; Start 04/29/25 at 11:00; Stop 05/29/25 at 10:59 Vancomycin HCl 1 each AD IV; Start 04/29/25 at 11:00; Stop 05/13/25 at 10:59 Sodium Chloride 4 ml STK-MED ONCE IH Last administered on 04/29/25at 11:10; Start 04/29/25 at 10:49; Stop 04/29/25 at 10:49; Status DC Vancomycin HCl 500 ml @ 250 mls/hr ONCE ONCE IV Last administered on 04/29/25at 11:08; Start 04/29/25 at 11:00; Stop 04/29/25 at 12:59; Status DC Vancomycin HCl 250 ml @ 125 mls/hr Q8H IV Last administered on 04/30/25at 05:52; Start 04/29/25 at 21:00; Stop 04/30/25 at 14:25; Status DC Sodium Chloride 4 ml STK-MED ONCE IH Last administered on 04/29/25at 19:35; Start 04/29/25 at 18:29; Stop 04/29/25 at 18:29; Status DC Lactulose 20 gm ACHS PRN PO Last administered on 04/30/25at 09:33; Start 04/29/25 at 20:00; Stop 04/30/25 at 13:06; Status DC Sodium Chloride 4 ml STK-MED ONCE IH; Start 04/30/25 at 06:13; Stop 04/30/25 at 06:14; Status DC Ketorolac Tromethamine 15 mg Q6H PRN IM Last administered on 05/03/25at 14:33; Start 04/30/25 at 11:30; Stop 05/05/25 at 11:29; Status DC Magnesium Citrate 296 ml ONCE ONCE PO Last administered on 04/30/25at 13:19; Start 04/30/25 at 13:00; Stop 04/30/25 at 13:06; Status DC Lactulose 20 gm Q6HWA PRN PO; Start 04/30/25 at 13:00; Stop 05/30/25 at 12:59 Cefepime HCl 2 gm Q8H IVPB Last administered on 05/01/25at 00:34; Start 04/30/25 at 16:00; Stop 05/01/25 at 12:05; Status DC Vancomycin HCl 250 ml @ 125 mls/hr Q24H IV Last administered on 05/05/25at 05:03; Start 05/01/25 at 05:00; Stop 05/11/25 at 04:59 Fluconazole 200 mg Q24H PO; Start 05/01/25 at 12:30; Stop 05/02/25 at 12:03; Status DC Pharmacy Profile Note 1 each ONCE MISC; Start 05/01/25 at 12:30; Stop 05/01/25 at 12:11; Status DC Meropenem 1 gm Q8H IVPB Last administered on 05/02/25at 04:15; Start 05/01/25 at 12:30; Stop 05/02/25 at 12:29; Status DC Metoclopramide HCl 10 mg Q6H6 IVP Last administered on 05/05/25at 11:48; Start 05/01/25 at 18:00; Stop 05/31/25 at 17:59 Dexamethasone Sodium Phosphate 10 mg Q24H IV Last administered on 05/01/25at 17:22; Start 05/01/25 at 17:00; Stop 05/02/25 at 09:13; Status DC Potassium Chloride 100 ml @ 100 mls/hr PROTOCOL PRN IV Last administered on 05/01/25at 22:29; Start 05/01/25 at 21:00; Stop 05/31/25 at 20:59 Amino Acids/ Electrolytes/ Dextrose 2,000 ml @ 83.333 mls/ hr ONCE ONCE IV Last administered on 05/02/25at 02:00; Start 05/02/25 at 02:00; Stop 05/02/25 at 17:17; Status DC Sodium Chloride 4 ml STK-MED ONCE IH; Start 05/02/25 at 06:07; Stop 05/02/25 at 07:04; Status DC Diatrizoate Meglum/ Diatrizoate Sod 30 ml STK-MED ONCE .ROUTE; Start 05/02/25 at 08:03; Stop 05/02/25 at 08:03; Status DC Dexamethasone Sodium Phosphate 10 mg Q24H IV Last administered on 05/04/25at 17:26; Start 05/02/25 at 17:00; Stop 05/31/25 at 16:59 Fluconazole/ Sodium Chloride 200 mg Q24H IVPB Last administered on 05/05/25at 11:48; Start 05/02/25 at 12:00; Stop 06/01/25 at 11:59 Famotidine 20 mg BID IV Last administered on 05/05/25at 10:09; Start 05/02/25 at 21:00; Stop 06/01/25 at 20:59 Amino Acids/ Electrolytes/ Dextrose 2,000 ml @ 83 mls/hr ONCE ONCE IV Last administered on 05/03/25at 02:46; Start 05/03/25 at 02:00; Stop 05/04/25 at 02:05; Status DC Benzonatate 100 mg Q8H PRN PO Last administered on 05/03/25at 11:32; Start 05/03/25 at 11:00; Stop 06/02/25 at 10:59 Pharmacy Profile Note 1 each ONCE MISC; Start 05/04/25 at 16:30; Stop 05/04/25 at 16:22; Status DC Meropenem 1 gm Q8H IVPB Last administered on 05/05/25at 10:08; Start 05/04/25 at 16:30; Stop 05/14/25 at 16:29 Amino Acids/ Electrolytes/ Dextrose 2,000 ml @ 83 mls/hr ONCE ONCE IV Last administered on 05/04/25at 20:43; Start 05/04/25 at 21:00; Stop 05/05/25 at 21:05 JANETTE GEE MD May 05, 2025 13:04
--- NOTE | 2025-05-05 14:12 | PN ---
[facility] PROGRESS NOTE Date of Service: May 05, 2025 Time of Service: 14:11 SUBJECTIVE: 04/20 the patient has been seen and examined at bedside, case discussed with the RN, no acute events overnight, the time of my visit, the patient is awake, following commands, blood pressure 140/90, afebrile, saturating normal on room air. The patient is morbidly obese, he uses a CPAP at home, currently CPAP at bedside during my visit. WBC 14.0, hemoglobin 10.4, hematocrit 34.8, platelet count of 305. CMP shows sodium 141, potassium 3.5, BUN 70, creatinine 0.9, iron level of 25. X-ray of the knee showing moderate to severe three, power mental right knee osteoarthritis, predominantly in the lateral compartment, with small joint effusion. No acute fracture. Orthopedic physician consultation requested, we will follow input and recommendation. MRI of the right knee requested, however due to morbid obesity, might not be able to do it. Discussed with the mother is at the bedside, all questions answered, in agreement. 04/21 patient has been seen and examined at bedside, case discussed with the RN, no acute events overnight, the time my visit he is awake, following commands, admits mild dry nonproductive cough, spiked fever 102.6. Denied chest pain, shortness shortness for breath, no nausea, no vomiting, no abdominal discomfort. The patient has a colostomy bag, on examination, liquid stool noted. WBC slowly trending down at 12.7, hemoglobin stable 11.6. Magnesium 1.7. Added doxycycline 100 mg IV q.12 hours. Follow serology to include SARS antigen, influenza and rapid strep. We will give magnesium sulfate 2 g IV x1. We will order GI stool panel. Patient is scheduled for MRI to the right knee today, continue lidocaine patch, discussed with the orthopedic physician today, we will follow input and recommendation. 04/22 patient is seen and examined at bedside, discussed with the RN. Patient currently feels nauseated. He admits mild discomfort to the right lower quadrant. BP 135/77, mildly tachycardic at 108, saturating normal on room air. Maximum temperature last 24 hours 102.7. CBC shows a hemoglobin of 11.6, hematocrit 35.7, platelet count of 276, with a platelet count of 23.8. Creatinine 2.1. MRI of the right knee shows tricompartmental osteoarthritis with osteophytosis and diffuse cartilage loss, medial and lateral meniscal with complex degenerative tear involving posterior horns and bodies, meniscal tear severity grade 3, full-thickness chondral defect of the lateral femoral condyle, with a underlying subchondral edema, small reactive joint effusion with mild synovitis. We will upgraded the patient to the PCU, LR at 50 mL/hours, follow repeat CBC, CMP and magnesium level. Continue Rocephin and doxycycline IV. We will order a CT of the abdomen and pelvis without contrast to rule out intra- abdominal acute pathology. Orthopedic input noted and appreciated, patient with bad arthritis, we will finally benefit from knee replacement, however considering his morbid obesity, it is not indicated right now. Recommended con servative approach. Mother at bedside, all questions answered, updated, in agreement with plan of care. 04/23 patient is seen and examined at bedside, discussed with the RN, no acute events overnight, patient upgraded to the ICU yesterday due to sepsis and developing small bowel obstruction. Today the patient is awake, following commands, he is NPO, NG tube to intermittent suction, BP 120/76, heart rate of 111, saturating 96% 3 L nasal cannula, temperature 98.4. WBC of 27.6, hemoglobin 10.6, hematocrit 35.5, platelet count 240, creatinine improved to 1.2. Septic workup with blood culture positive for Staphylococcus epidermidis. Echocardiogram and chest x-ray pending. Patient will remain admitted to the ICU, continue broad-spectrum IV antibiotics, we will follow surgical input recommendation. Continue to follow critical Care and ID input and recommendation. And we will update the mother regarding results of CT of the abdomen pelvis and further plan of care when she is present in the room. CT abdomen and pelvis reviewed, as follows: * Patient is undergoing mass evaluation. * Interval progression since 22 April 2025 with a new right upper lobe spiculated infiltrative mass measuring 5.4 ??? 4.6 cm infiltrating mediastinal pleura and abutting the right main pulmonary artery. * Bulky mediastinal lymphadenopathy with largest node measuring 4 cm, involving right paratracheal, prevascular, precarinal, and subcarinal stations, increased since prior study. * Multiple bilateral spiculated pulmonary nodules (1???2.5 cm), consistent with metastatic disease progression. * Bilateral marked diffuse adrenal enlargement (Right 5.9 ??? 3.6 cm, Left 7.6 ??? 5.4 cm), likely metastatic or hyperplastic. 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 * Degenerative thoracolumbar spondylosis with L4 vertebral body wedging (30???40% height loss), unchanged. * Comparison is made with the exam dated 22 April 2025. Overall findings indicate worsening metastatic disease with new primary and gloria lesions and mechanical bowel obstruction requiring clinical and surgical correlation. Recommendations include oncologic evaluation and PET-CT staging, alongside urgent surgical consultation for bowel obstruction. 04/24 patient is seen and examined at bedside, discussed with the RN, no acute events overnight, patient downgraded from the ICU to the PCU, he remains NPO, NG tube connected to intermittent suction, output in the last 12 hours 200 mL. BP 146/150, heart rate of 101, afebrile, saturating 96-97% on nasal cannula. CBC shows a hemoglobin of 9.9, hematocrit 33.5, platelet count of 235, with WBC of 21.3. CMP with sodium 146, potassium 3.8, BUN of 18, creatinine 0.9, magnesium 1.8. Blood culture 04/21/2025 positive for Staphylococcus epidermidis. Repeat blood cultures 04/23/2025 no growth after 24 hours echocardiogram 04/23/2025 LVEF 50-55%, no left ventricle thrombus, no intracardiac masses, no valvular vegetations. Today chest x-ray pending. Patient will remain admitted to the PCU, NPO, intermittent suction, continue to follow surgical input recommendation, continue broad-spectrum IV antibiotics, follow WBC in a.m.. Follow KUB. I HAVE CONTACTED THE DEPARTMENT OF MEDICAL RECORDS ARTER[facility] THE [facility], SPOKE WITH ZENA AT PHONE NUMBER [phone], I HAVE REQUESTED MEDICAL RECORDS. WE WILL FOLLOW UP. 04/25 patient is seen and examined at bedside, case discussed with the RN, no acute events overnight, he remains comfortably in bed, NPO, NG tube to intermittent suction, he is awake, following commands, BP 128/90, area of 101, afebrile. Still feels distended. On examination colostomy bag, enema output noted. KUB pending. KUB from 04/24/2025 showing markedly dilated small bowel loops up to 5.6 cm, consistent with distal small-bowel obstruction, no pneumoperitoneum, pneumatosis intestinalis or portal venous gas. I received medical records from [facility], patient was admitted on 11/19/2024 and discharged 12/08/2024. Areolar in the hospital patient underwent exploratory laparoscopy, laparotomy and creation of transverse loop colostomy 11/28/2024. Patient was evaluated by oncologist Braulio Bell. 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 Per my discussion with the mother, from [facility] the patient was discharged to [facility] to recover and from there he went home. Patient has not had a follow up appointment with the general surgeon or oncologist after that. We have requested Oncology consultation here during this admission. Pathology report from rectal biopsy shows moderately differentiated adenocarcinoma, then new pulmonary nodules and mediastinal lymphadenopathy as per CT scan indicates the possibility of metastatic disease. CEA is [id number]. Req uested pulmonary nodule biopsy by IR. Patient will remain admitted to the PCU, we will continue NG tube to intermittent suction, NPO, TPN, follow surgical input and recommendation. Follow repeat KUB. Mother at bedside, updated, all questions answered. Plan of care discussed with the patient as well, in agreement. 04/26 patient is seen and examined at bedside, discussed with the RN, no acute events overnight, patient is status post CT-guided biopsy of left anterior rib mass, 04/26/2025, tolerated the procedure well. At the time of my visit, he is awake, following commands, denied chest pain, shortness shortness for breath, no nausea, no vomiting. Colostomy bag full of air. No stool or liquid noted. Plan is for the patient to start clear liquid diet and advanced as tolerated. We will follow results of pathology. Continue to follow a.m. labs. Mother at bedside, updated. 04/27 patient is seen and, discussed with the RN, no acute events overnight, alert oriented x3, tolerating clear liquid diet. Passing gas in the colostomy bag but no bowel movement yet. Patient was swollen to the right upper extremity. Doppler showing deep venous thrombosis involving the right axillary vein and brachial veins, nonocclusive thrombosis of the right cephalic vein (superficial venous thrombosis). Correlate clinically for pulmonary embolism risk. Hemoglobin of 10.4, hematocrit 35.9, platelet count of 18.7. Findings of Doppler discussed with the mother, we will start the patient on heparin drip, risks versus benefits discussed, agreed to proceed with the anticoagulation. We will insert midline in the left upper extremity. We will continue to clinically monitor the patient.status post CT-guided biopsy of left anterior rib mass, 04/26/2025, follow up pathology. Continue to follow oncology input and recommendation. 04/28 patient is seen and, discussed with the RN, no acute events overnight, alert oriented x3, remains admitted to the PCU, alert oriented x3 at the time of my visit, tolerating soft diet, passing gas but no BM yet. Doppler showing deep venous thrombosis involving the right axillary vein and brachial veins, nonocclusive thrombosis of the right cephalic vein (superficial venous thr ombosis). Continue heparin drip. Oncology input noted and appreciated. Patient will need Port-A-Cath insertion before discharge home. status post CT- guided biopsy of left anterior rib mass, 04/26/2025, follow up pathology. Continue broad-spectrum IV antibiotics, trend WBC in a.m. per mother at bedside, updated. 04/29/25 The patient continue with Heparin drip given to DVT right axillary vein and brachial vein: will transition to po close to discharged. This patient will need Port-A-Cath insertion before discharge home. This patient need to be clear for Port-A-Cath insertion by infectious disease 04/30/25 patient is lying in bed primary nurse reports no events overnight. Patient we will have IR place Port-A-Cath tomorrow. Patient continues with broad-spectrum antibiotics continues heparin drip transitioned to p.o. post procedure. 05/01 patient is seen and, discussed with the RN, no acute events overnight, alert oriented x3, remains admitted to the PCU, alert oriented x3 at the time of my visit, tolerating soft diet, passing gas but no BM yet. Doppler showing deep venous thrombosis involving the right axillary vein and brachial veins, nonocclusive thrombosis of the right cephalic vein (superficial venous thrombosis). Continue heparin drip. Oncology input noted and appreciated. Patient will need Port-A-Cath insertion before discharge home. IR consultation requested. status post CT-guided biopsy of left anterior rib mass, 04/26/2025, follow up pathology. Continue broad-spectrum IV antibiotics, trend WBC in a.m. per mother at bedside, updated. On physical examination, only small liquid o utput from colostomy bag, no solid stool noted. Discussed with surgery, recommended small-bowel series. Continue to trend WBC in a.m.. Patient may require transfer to higher level of care, we will discuss with case management. 05/02 patient is seen and, discussed with the RN, no acute events overnight, alert oriented x3, remains admitted to the PCU, alert oriented x3 at the time of my visit, tolerating soft diet, passing gas. Colostomy bag on exam looks more full compared to yesterday however not solid stool yet. Discussed with the surgery yesterday, recommended small-bowel series, likely to be completed today, we will follow up. 05/03 patient is seen and examined at bedside, discussed with the RN, no acute events overnight, patient remains comfortably in bed, alert oriented x3, feels hungry, passing gas, liquid stool noted in colostomy bag, still pending to complete small-bowel series. Patient remains on heparin drip, swollen to the right upper extremity almost resolved. Denies pain to the right upper arm. Continue to follow a.m. labs. Oncology input noted and appreciated, biopsy consistent with adenocarcinoma. Patient has stage IV colorectal cancer with metastatic disease to the lung. Peripheral bloood smear shows microcytic hypochromic anemia consistent with iron deficiency anemia . There is teardrop cell, pelger huet cell and rouleaux formation .Increased number of WBCs observed with neutrophilia and hypersegmented neutrophils suggestive of underlying infection . Band cells observed. Platelet morphology and count within normal limits .Discussed with the mother at bedside, all questions answered. In agreement. 05/04 patient is seen and examined at bedside, discussed with the RN, no acute events overnight, patient remains comfortably in bed, alert oriented x3, small- bowel series done 05/02/2025, still pending report. Continue the patient on TPN. Mother at bedside, updated. Follow a.m. labs. 05/05 patient is seen and examined at bedside, discussed with the RN, no acute events overnight, during my visit comfortably in bed, alert oriented x3, on TPN, results of small-bowel series no evidence of obstruction, patient is started on clear liquid diet. We will advance to soft diet today. Mother and father at bedside during my visit, updated. Per the mother, she stated that the patient is still have pain on both knees on is trying to work with the physical therapist. We will start the patient on Toradol 15. mg IV every 6 hours as needed monitor renal function in a.m.. Continue to follow CBC in a.m. transfuse as needed. Hematology and ID input noted and appreciated. REVIEW OF SYSTEMS CONSTITUTIONAL: Denies fevers, chills, or night sweats. No unintentional weight loss reported. NEUROLOGICAL: Denies headache, amaurosis fugax, motor weakness, sensory deficit, vertigo/spinning sensation, gait abnormalities, or tremors. ENT: No hearing loss, otalgia, otorrhea, rhinitis, rhinorrhea, hoarseness, or sore throat. CARDIOVASCULAR: Denies any exertional angina, dyspnea on exertion, orthopnea, paroxysmal nocturnal dyspnea, palpitations, life-threatening arrhythmias, claudication. PULMONARY: Denies any shortness of breath, cough, phlegm/sputum, hemoptysis, pleuritic chest pain. SLEEP: Denies morning headaches, daytime somnolence or napping. Denies difficulty falling asleep, staying asleep, waking from sleep. Denies knowledge of snoring. GASTROINTESTINAL: Denies any type of dysphagia to either liquids or solids. Denies nausea, vomiting, pyrosis, early satiety, abdominal pain, diarrhea, constipation, or changes in stool consistency or caliber. Denies coffee-ground emesis, hematemesis, hematochezia, or melanotic stools. GENITOURINARY: Denies frequency, urgency, nocturia, hematuria or incontinence (Storage/Irritative symptoms.) Low urinary stream, straining to void, urinary intermittency or hesitancy, splitting of the voiding stream, terminal dribbling. ENDOCRINOLOGIC: Denies polyuria, polydipsia, polyphagia or heat/cold intolerances. HEMATOLOGIC: Denies thrombophilia/previous clots, or coagulopathy/bleeding disorders. ONCOLOGIC: Denies personal history of malignancy. DERMATOLOGIC: Denies rashes or pruritus. PSYCHIATRIC: Denies any suicidal or homicidal ideation. Denies hallucinations. PHYSICAL EXAM GENERAL APPEARANCE: Patient awake, following commands, NG tube to intermittent suction. NEUROLOGICAL: Cranial nerves II-XII grossly intact. Motor is 5/5 in bilateral upper and lower extremities proximal to distal. No sensory deficits. HEENT: Face is symmetric. Pupils are equal and reactive. Extraocular movements are intact. NECK: Supple. No JVD. No thyromegaly. No submental, submandibular, pre-/postauricular, occipital or supraclavicular lymphadenopathy. CHEST: Normal chest expansion. No Telemetry. LUNGS: Absence of any rales, rhonchi or any wheezing. CARDIOVASCULAR: Regular. S1 and S2 normal. No appreciable rubs, murmurs or gallops. ABDOMEN: Liquid output colostomy bag noted. : Deferred. No Doe. EXTREMITIES: Mild swelling to the right knee area, lidocaine patch in place. SKIN: No skin breakdown. Vital Signs (last 8hr) Date Time Temp Pulse Resp B/P (MAP) Pulse Ox O2 Delivery O2 Flow Rate FiO2 05/05/25 12:07 96 Nasal Cannula* 2 28 05/05/25 12:00 97.7 68 18 149/81 96 Nasal Cannula 2.0 05/05/25 08:00 97.3 67 18 153/104 96 Room Air 05/05/25 07:19 20 N/Cannula Low lpm 2.0 28 LABS: Laboratory: Test 05/05/25 11:46 05/05/25 09:55 05/05/25 04:38 Range/Units Whole Blood Glucose 153 H 70-110 MG/DL Activated Partial Thromboplast Time 64.1 #H 26.3-35.5 SEC White Blood Count 15.6 H 4.8-10.8 K/uL Red Blood Count 3.94 L 4.50-6.20 MIL/uL Hemoglobin 9.4 L 14.0-18.0 g/dL Hematocrit 31.8 L 42-54 % Mean Corpuscular Volume 80.7 79-99 fL Mean Corpuscular Hemoglobin 23.9 L 27.0-33.0 pg Mean Corpuscular Hemoglobin Concent 29.6 L 32.0-36.0 g/dL Red Cell Distribution Width 21.4 H 11.0-15.5 % Platelet Count 300 130-400 K/uL Mean Platelet Volume 10.4 7.5-10.5 fL Nucleated Red Blood Cells 0.0 0.0-0.19 % Red Blood Cell Morphology See comments Sodium Level 134 L 136-145 mmol/L Potassium Level 4.7 3.5-5.1 mmol/L Chloride Level 98 L 101-111 mmol/L Carbon Dioxide Level 27 21-32 mmol/L Blood Urea Nitrogen 33 H 7-18 mg/dL Creatinine 0.7 0.5-1.3 mg/dL Glomerular Filtration Rate Calc 123 >90 mL/min Random Glucose 168 H 70-105 mg/dL Total Calcium 8.3 L 8.5-10.1 mg/dL Magnesium Level 2.30 1.80-2.40 mg/dL Total Bilirubin 0.6 0.2-1.0 mg/dL Aspartate Amino Transf (AST/SGOT) 89 H 10-37 U/L Alanine Aminotransferase (ALT/SGPT) 63 # 12-78 U/L Alkaline Phosphatase 157 H 50-136 U/L Total Protein 7.3 6.0-8.3 g/dL Albumin 2.2 L 3.5-5.0 g/dL Current Medications Medications (Trade) Dose Ordered Sig/Checo Route PRN Reason Start Time Stop Time Status Last Admin Dose Admin Acetaminophen (TYLenol 325MG TAB) 650 mg Q6H PRN PO FEVER/pain 1-3 04/19/25 22:00 05/19/25 21:59 05/05/25 11:49 650 MG Benzonatate (Tessalon 100mg Caps) 100 mg Q8H PRN PO COUGH 05/03/25 11:00 06/02/25 10:59 05/03/25 11:32 100 MG Cefepime HCl (MAXipime 2 gm vial) 2 gm Q8H IVPB 04/22/25 13:00 04/30/25 13:07 DC 04/30/25 04:27 2 GM Cefepime HCl (MAXipime 2 gm vial) 2 gm Q8H IVPB 04/30/25 16:00 05/01/25 12:05 DC 05/01/25 00:34 2 GM Ceftriaxone Sodium (ROCEphine 1G INJ) 1 gm Q24H IVPB 04/20/25 10:00 04/22/25 12:41 DC 04/22/25 10:53 1 GM Dexamethasone Sodium Phosphate (dexaMETHasone 4MG/ML 1ML VIAL) 10 mg Q24H IV 05/01/25 17:00 05/02/25 09:13 DC 05/01/25 17:22 10 MG Dexamethasone Sodium Phosphate (dexaMETHasone 10MG/ML 1ML VIAL) 10 mg Q24H IV 05/02/25 17:00 05/31/25 16:59 05/04/25 17:26 10 MG Dextrose 1,000 ml @ 50 mls/hr Q20H IV 04/25/25 08:00 04/25/25 16:53 DC 04/25/25 10:38 100 MLS/HR Doxycycline Hyclate 250 ml @ 125 mls/hr Q12H IV 04/21/25 08:30 04/22/25 12:41 DC 04/22/25 08:14 125 MLS/HR Enoxaparin Sodium (Lovenox) 40 mg DAILY SQ 04/20/25 09:00 04/22/25 20:00 DC 04/22/25 08:14 40 MG Enoxaparin Sodium (Lovenox) 40 mg Q12H SQ 04/22/25 21:00 04/27/25 13:24 DC 04/27/25 08:10 40 MG Famotidine (Pepcid 20mg Vial) 20 mg BID IV 05/02/25 21:00 06/01/25 20:59 05/05/25 10:09 20 MG Famotidine (Pepcid 20mg Tab) 20 mg DAILY PO 04/20/25 09:00 05/02/25 12:03 DC 04/30/25 09:23 20 MG Fluconazole (DiFLUCan 100 mg TAB) 200 mg Q24H PO 05/01/25 12:30 05/02/25 12:03 DC Fluconazole/ Sodium Chloride (DiFLUCan 200 MG/ NS 100 ML) 200 mg Q24H IVPB 05/02/25 12:00 06/01/25 11:59 05/05/25 11:48 200 MG Furosemide (LASix 20MG VIAL) 20 mg Q12H IV 04/29/25 11:00 05/29/25 10:59 05/05/25 10:09 20 MG Furosemide (LASix 20MG VIAL) 20 mg Q8H IV 04/24/25 19:00 04/25/25 03:01 DC 04/25/25 03:06 20 MG Heparin Sodium (Porcine) (HEParin 5,000 UNIT VIAL) *calculation based on ACTUAL B... AD PRN IV HEPARIN PROTOCOL 04/27/25 14:00 05/27/25 13:59 Heparin Sodium/ Dextrose 250 ml @ 0 mls/hr Q6H IV 04/27/25 14:00 05/27/25 13:59 05/05/25 05:07 16.04 MLS/HR Hydralazine HCl (APRESOLine 20MG INJ) 5 mg Q6H PRN IV For:SBP above 160;DBP above 90 04/20/25 16:00 05/20/25 15:59 Hydralazine HCl (APRESOLine 20MG INJ) 10 mg Q6H PRN IV For:SBP above 160;DBP above 90 04/19/25 22:00 04/20/25 10:52 DC Hydromorphone HCl (DiLAUDid 0.5MG INJ) 0.5 mg Q4H PRN IVP SEVERE PAIN (7-10) 04/22/25 20:00 04/27/25 19:59 DC Ipratropium [place] (AtrovENT UD) 0.5 MG Q6H PRN IH SHORTNESS OF BREATH 04/28/25 19:30 05/28/25 19:29 04/29/25 11:10 0.5 MG Iron Sucrose (VenoFER) 200 mg DAILY IV 04/26/25 09:00 04/28/25 11:00 DC 04/28/25 09:20 200 MG Ketorolac Tromethamine (toRADol) 15 mg Q6H PRN IM MODERATE PAIN (4-6) 04/30/25 11:30 05/05/25 11:29 DC 05/03/25 14:33 15 MG Ketorolac Tromethamine (toRADol) 15 mg Q6H PRN IV MODERATE PAIN (4-6) 04/20/25 11:00 04/22/25 19:58 DC 04/20/25 22:08 15 MG Ketorolac Tromethamine (toRADol) 15 mg Q6H PRN IV MODERATE PAIN (4-6) 05/05/25 14:30 05/10/25 14:29 UNV Labetalol HCl (TRANdate 20MG SYG) 10 mg Q6H PRN IV SUSTAINED HR >120 04/23/25 00:00 05/23/25 00:00 Lactated Ringer's 1,000 ml @ 50 mls/hr Q20H IV 04/21/25 12:30 04/25/25 07:47 DC 04/24/25 02:58 75 MLS/HR Lactated Ringer's 1,000 ml @ 100 mls/hr Q10H IV 04/19/25 22:00 04/20/25 10:52 DC 04/21/25 12:40 100 MLS/HR Lactulose (Constulose 20gm/ 30ml Udcup) 20 gm ACHS PRN PO CONSTIPATION 04/29/25 20:00 04/30/25 13:06 DC 04/30/25 09:33 20 GM Lactulose (Constulose 20gm/ 30ml Udcup) 20 gm BID PRN PO CONSTIPATION 04/19/25 22:00 04/29/25 19:41 DC Lactulose (Constulose 20gm/ 30ml Udcup) 20 gm Q6HWA PRN PO CONSTIPATION 04/30/25 13:00 05/30/25 12:59 Lidocaine (Lidocaine Patch 4%) 1 each DAILY TP 04/21/25 09:00 05/21/25 08:59 05/05/25 10:08 1 EACH Magnesium Sulfate 50 ml @ 0 mls/hr PROTOCOL IV 04/21/25 08:30 05/21/25 08:29 04/24/25 06:11 25 MLS/HR Meropenem (Merrem 1gm) 1 gm Q8H IVPB 05/01/25 12:30 05/02/25 12:29 DC 05/02/25 04:15 1 GM Meropenem (Merrem 1gm) 1 gm Q8H IVPB 05/04/25 16:30 05/14/25 16:29 05/05/25 10:08 1 GM Metoclopramide HCl (regLAN 10MG IV) 10 mg Q6H6 IVP 05/01/25 18:00 05/31/25 17:59 05/05/25 11:48 10 MG Metronidazole/ Sodium Chloride 100 ml @ 100 mls/hr Q8H6 IVPB 04/22/25 14:00 05/02/25 13:59 DC 05/02/25 09:55 100 MLS/HR Morphine Sulfate (morPHINE 4MG SYG) 4 mg Q4H PRN IVP SEVERE PAIN (7-10) 04/19/25 22:00 04/20/25 10:52 DC Nystatin (NystOP 15 GM POWDER) 1 APPLICATION BID TP 04/26/25 14:00 05/26/25 13:59 05/04/25 20:39 1 APPL Ondansetron HCl (zoFRAN 4MG INJ) 4 mg Q6H PRN IV NAUSEA/VOMITING 04/19/25 22:00 05/19/25 21:59 04/24/25 22:19 4 MG Pharmacy Profile Note (Pharmacy Communication) 1 each ONCE MISC 05/01/25 12:30 05/01/25 12:11 DC Pharmacy Profile Note (Pharmacy Communication) 1 each ONCE MISC 05/04/25 16:30 05/04/25 16:22 DC Potassium Chloride 100 ml @ 100 mls/hr PROTOCOL PRN IV hypokalemia 05/01/25 21:00 05/31/25 20:59 05/01/25 22:29 100 MLS/HR Promethazine HCl (Phenergan) 12.5 mg Q8H5 PRN IM NAUSEA/VOMITING 04/22/25 12:30 05/22/25 12:29 04/22/25 12:25 12.5 MG Sodium Chloride 500 ml @ 0 mls/hr Q0M STAT IV 04/22/25 13:17 04/22/25 13:22 DC 04/22/25 14:39 600 MLS/HR Vancomycin HCl 250 ml @ 125 mls/hr Q24H IV 05/01/25 05:00 05/11/25 04:59 05/05/25 05:03 125 MLS/HR Vancomycin HCl 250 ml @ 125 mls/hr Q8H IV 04/29/25 21:00 04/30/25 14:25 DC 04/30/25 05:52 125 MLS/HR Vancomycin HCl (Vancomycin Protocol) 1 each AD IV 04/22/25 15:00 04/23/25 22:23 DC Vancomycin HCl (Vancomycin Protocol) 1 each AD IV 04/29/25 11:00 05/13/25 10:59 DIAGNOSTICS / RADIOLOGY: [ ] ASSESSMENT: Severe sepsis with MODS, resolved Leukocytosis Gram-positive cocci bacteremia Status post left rib biopsy by IR on 04/26/2025 New right upper lobe spiculated infiltrative mass measuring 5.4 x 4.6 cm infiltrating mediastinal pleura and albumin in the right main pulmonary artery Bulky mediastinal lymphadenopathy with the largest node measuring 4 cm involving the right paratracheal, prevascular, and subcarinal stations Multiple bilateral spiculated pulmonary nodules consistent with metastatic disease progression Bilateral marked diffuse adrenal enlargement likely metastatic or hyperplastic Left iliac fossa 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 Right upper extremity DVT involving the axillary and brachial veins Small-bowel obstruction Stage IV colorectal cancer with metastatic disease to the lung, pathology consistent with moderately differentiated adenocarcinoma, POA PLAN: patient is seen and examined at bedside, discussed with the RN, no acute events overnight, during my visit comfortably in bed, alert oriented x3, on TPN, results of small-bowel series no evidence of obstruction, patient is started on clear liquid diet. We will advance to soft diet today. Mother and father at bedside during my visit, updated. Per the mother, she stated that the patient is still have pain on both knees on is trying to work with the physical therapist. We will start the patient on Toradol 15. mg IV every 6 hours as needed monitor renal function in a.m.. Continue to follow CBC in a.m. transfuse as needed. Hematology and ID input noted and appreciated. NEURO: Minimize central acting medications as possible. Fall Precautions. Well lighted room through the day and minimize interruptions through the night to prevent acute delirium. PULMONARY: Supplemental 02 as needed BiPAP as necessary, for respiratory distress Titrate Fio2 to keep Spo2 > or = 90% DuoNebs and CPT as needed IS hourly while awake for pulmonary hygiene prn Out of bed to chair as tolerated Maintain aspiration precautions at all times CARDIOVASCULAR: Follow hemodynamics. Vital signs per facility protocol GI & NUTRITION: Continue nutritional support Aspirations precautions Prokinetic agents and laxatives as needed KIDNEYS & ELECTROLYTES: Strict monitoring of intake and output Daily weights Avoid nephrotoxic agents Monitor electrolytes and replace as needed Goal urine output of 30mL/hr or 0.5mL/kg/hr Medications to be dosed according to renal function. Avoid contrast if possible ENDOCRINE: Maintain blood glucose between 100-180 at all times. Insulin sliding scale for blood glucose management Hypoglycemia and hyperglycemia protocol in place INFECTIOUS DISEASE: Trend temperature, WBC and procalcitonin level Follow cultures, deescalate antibiotics as soon as possible. Panculture if new onset fever HEMATOLOGY & COAGULATION: Monitor H&H. Keep Hgb > 7 Transfuse 1 unit of PRBC for Hgb < 7 Transfuse 1 pack of platelets of platelets < 20, 000 Watch for any signs and symptoms of bleeding SKIN: Pressure ulcer prevention per facility protocol Specialty mattress as needed ORTHO/REHAB Continue PT/OT PRN: MEDICATIONS Tylenol 650 mg po every 4 hrs for fever zofran 4 mg IV every 6 hrs for n/v Hydralazine 5 mg IV every 4 hrs systolic pressure > 160 bowel regiment: lactulose 20 gm PO BID PRN constipation Supportive measures: Continue GI and DVT prophylaxis Disposition: Pending improvement in clinical condition All questions answered time spent: > 35 min TITA PETERSON MD May 05, 2025 14:12
--- NOTE | 2025-05-05 14:28 | PN ---
INFECTIOUS DISEASE PROGRESS NOTE Date of Service: May 05, 2025 SUBJECTIVE: This 35-year-old male patient is being seen today at bedside. He is awake, alert and oriented x3. Patient does deny chest pain or shortness for breath. Patient does state to continue with right knee pain. Patient was encouraged to continue participating with physical therapy. He does remain on Merrem, fluconazole and vancomycin. He does continue with TPN. Nursing reports patient has been advanced from full liquid to GI soft diet. Family at bedside went over plan of care state understanding. PHYSICAL EXAM EYES: Anicteric. Pupils equal and reactive. HENT: No oral thrush seen, moist Oral mucosa. NECK: Supple, no JVD or thyromegaly. LUNGS: Diminished. Oxygen via nasal cannula. CARDIOVASCULAR: S1, S2 regular. No murmur heard. ABDOMEN: Abdomen is large but Soft, bowel sounds present. Left colostomy. CENTRAL NERVOUS SYSTEM: Awake, alert, oriented x 3. SKIN: No rashes, no swelling. LYMPHATICS: No peripheral lymphadenopathy. MUSCULOSKELETAL: Right knee pain. EXTREMITIES: No cyanosis or clubbing. BACK: No deformity, no pressure ulcer. GENITOURINARY: No dysuria or hematuria. Vital Sign (Last 12 Hours) 05/05/25 05/05/25 05/05/25 05/05/25 04:00 07:19 08:00 12:00 Temp 98.1 97.3 97.7 Pulse 67 67 68 Resp 19 20 18 18 B/P (MAP) 140/74 153/104 149/81 Pulse Ox 94 96 96 O2 Delivery Nasal Cannula N/Cannula Low lpm Room Air Nasal Cannula O2 Flow Rate 2.0 2.0 2.0 FiO2 24 28 05/05/25 12:07 Pulse Ox 96 O2 Delivery Nasal Cannula* O2 Flow Rate 2 FiO2 28 Intake & Output (last 24hrs) 05/04/25 05/04/25 05/05/25 15:00 23:00 07:00 Intake Total 100 ml 999.1 ml Output Total 1300 ml 400 ml 1900 ml Balance -1300 ml -300 ml -900.9 ml LABS: Laboratory: Test 05/05/25 11:46 05/05/25 09:55 05/05/25 04:38 Range/Units Whole Blood Glucose 153 H 70-110 MG/DL Activated Partial Thromboplast Time 64.1 #H 26.3-35.5 SEC White Blood Count 15.6 H 4.8-10.8 K/uL Red Blood Count 3.94 L 4.50-6.20 MIL/uL Hemoglobin 9.4 L 14.0-18.0 g/dL Hematocrit 31.8 L 42-54 % Mean Corpuscular Volume 80.7 79-99 fL Mean Corpuscular Hemoglobin 23.9 L 27.0-33.0 pg Mean Corpuscular Hemoglobin Concent 29.6 L 32.0-36.0 g/dL Red Cell Distribution Width 21.4 H 11.0-15.5 % Platelet Count 300 130-400 K/uL Mean Platelet Volume 10.4 7.5-10.5 fL Nucleated Red Blood Cells 0.0 0.0-0.19 % Red Blood Cell Morphology See comments Sodium Level 134 L 136-145 mmol/L Potassium Level 4.7 3.5-5.1 mmol/L Chloride Level 98 L 101-111 mmol/L Carbon Dioxide Level 27 21-32 mmol/L Blood Urea Nitrogen 33 H 7-18 mg/dL Creatinine 0.7 0.5-1.3 mg/dL Glomerular Filtration Rate Calc 123 >90 mL/min Random Glucose 168 H 70-105 mg/dL Total Calcium 8.3 L 8.5-10.1 mg/dL Magnesium Level 2.30 1.80-2.40 mg/dL Total Bilirubin 0.6 0.2-1.0 mg/dL Aspartate Amino Transf (AST/SGOT) 89 H 10-37 U/L Alanine Aminotransferase (ALT/SGPT) 63 # 12-78 U/L Alkaline Phosphatase 157 H 50-136 U/L Total Protein 7.3 6.0-8.3 g/dL Albumin 2.2 L 3.5-5.0 g/dL ASSESSMENT: Hypoxic respiratory failure, requiring oxygen support. Staphylococcus epidermidis bacteremia, which is a contaminant. Leukocytosis. Right knee osteoarthritis. Bilateral pulmonary nodules consistent with metastatic disease, s/p lung biopsy. Small-bowel obstruction. Acute renal failure, improving. Morbid obesity. Recent Colorectal mass with resection and colostomy creation. Right upper extremity DVT. Debility. PLAN: Continue Meropenem. Continue fluconazole.. Continue vancomycin per pharmacy protocol. Continues on heparin drip. Continue oxygen support. Continue GI prophylaxis. Continue pain management. Avoid nephrotoxic medications. Pending a small bowel series report. Continue physical therapy. Continue TPN. This case was reviewed and discussed with my supervising physician Dr. Nguyen and the above assessment and plan was formulated and agreed upon. [facility] May 05, 2025 14:28
--- NOTE | 2025-05-05 17:28 | NUR ---
PTT 38.5. INCREASED HEPARIN DRIP BY 2 UNITS/KG/HR TO 17 U/KG/HR. WILL REPEAT PTT @ 2325
[2025-05-05] MEDS: CLINIMIX-E4.25%AA/D5+LYT2000ML 2,000 ML IV ONE (20:33)
--- NOTE | 2025-05-05 20:35 | NUR ---
MEDS SHIFT ASSESSMENT DONE, PLEASE REFER TO CHART. DUE MEDS ADMINISTERED, TOLERATED WELL. NEW CLINIMIX BAG HUNG WITH NEW TUBINGS. PT'S COLOSTOMY BAG IS LEAKING. PCP IN TO GIVE PT A BED BATH. WILL CHANGE COLOSTOMY BAG AFTER THE BATH.
--- NOTE | 2025-05-05 21:30 | NUR ---
CHANGE KEYONNA, [employer] MANA[employer], CHANGED COLOSTOMY BAG AND KEPT PT WARM AND DRY. PT REQUESTED TO USE CPAP AT 10PM. RT ZENA MADE AWARE.
[2025-05-06] VITALS (10 sets, daily range): BP systolic 115–153; BP diastolic 76–99; PULSE 63–95; RESP 17–20; TEMP 97.5–98.5; O2SAT 95–97
--- NOTE | 2025-05-06 00:20 | NUR ---
PTT LAB CALLED THAT PT'S PTT SHHGM=[phone]. STOPPED HEPARIN DRIP AT THIS TIME, TO BE ON HOLD FOR 1 HOUR PER PROTOCOL.
--- NOTE | 2025-05-06 01:20 | NUR ---
RE-START HEPARIN DRIP RE-STARTED, DECREASED TO 13 UNITS/KG/HOUR, WITNESSED BY SADIQ NEWBY.
--- NOTE | 2025-05-06 06:00 | NUR ---
[employer] TE[employer]ER HAVING DIFFICULTY DRAWING BLOOD. PT IS HARD STICK. CALLED PHARMACY, SPOKE WITH KARELY, INFORMED THAT PT'S VANCO THROUGH IS NOT YET AVAILABLE. DOSE STILL PENDING. PHARMACIST STATED WE WOULD NEED TO WAIT FOR RESULTS OF VANCO THROUGH. WILL ENDORSE TO AM SHIFT IF AM LABS ARE NOT AVAILABLE.
[2025-05-06 06:40] LABS: NUCLEATED RED BLOOD CELLS 0.0 % (0.0-0.19); PLATELET COUNT (AUTO) 340 K/uL (130-400); RED BLOOD CELL COUNT(AUTO) 4.41 MIL/uL (4.50-6.20); RED CELL DISTRIBUTION WIDTH 21.7 % (11.0-15.5); WHITE BLOOD COUNT (AUTO) 17.1 K/uL (4.8-10.8)
[2025-05-06 06:53] LABS: ASPARTATE AMINOTRANSFERASE 86.0 U/L (10-37); CREATININE 0.7 mg/dL (0.5-1.3); GLOMERULAR FILTR. RATE CALC 123.0 mL/min (>90); GLUCOSE,RANDOM 156.0 mg/dL (70-105); PHOSPHORUS 4.3 mg/dL (2.5-4.9); SODIUM SERUM 129.0 mmol/L (136-145); TOTAL PROTEIN, SERUM 7.3 g/dL (6.0-8.3); UREA NITROGEN, BLOOD 32.0 mg/dL (7-18); VANCOMYCIN TROUGH 9.2 UG/ML (10.0-20.0)
[2025-05-06 07:38] LABS: BAND NEUTROPHILS % (MANUAL) 2 % (0-2); LYMPHOCYTES % (MANUAL) 6 % (22-44); MAN.DIFF COMMENT-IMPRESSION MANUAL DIFFERENTIAL; MONOCYTES % (MANUAL) 6 % (2-9); REACTIVE LYMPHOCYTES 2 % (0-0); SEGMENTED NEUTROPHILS % 84 % (40-70); WBC MORPHOLOGY TOXIC GRANULATION 2+
[2025-05-06 07:39] LABS: PLATELET MORPHOLOGY COMMENT ADEQUATE
--- NOTE | 2025-05-06 07:46 | NUR ---
DRIP PT'S PTT LEVEL=25.7. HEPARIN BOLUS PER PHARMACIST KARELY OF 1000 UNITS ADMINISTERED AND DRIP DOSE INCREASED BY 4 UNITS/KR/HR. DOSE AND CHANGES WITNESSED BY HERLINDA ROA. FOR MORE CARE AND MANAGEMENT.
--- NOTE | 2025-05-06 07:55 | PN ---
[facility] PROGRESS NOTE Date of Service: May 06, 2025 Time of Service: 07:51 SUBJECTIVE: 04/20 the patient has been seen and examined at bedside, case discussed with the RN, no acute events overnight, the time of my visit, the patient is awake, following commands, blood pressure 140/90, afebrile, saturating normal on room air. The patient is morbidly obese, he uses a CPAP at home, currently CPAP at bedside during my visit. WBC 14.0, hemoglobin 10.4, hematocrit 34.8, platelet count of 305. CMP shows sodium 141, potassium 3.5, BUN 70, creatinine 0.9, iron level of 25. X-ray of the knee showing moderate to severe three, power mental right knee osteoarthritis, predominantly in the lateral compartment, with small joint effusion. No acute fracture. Orthopedic physician consultation requested, we will follow input and recommendation. MRI of the right knee requested, however due to morbid obesity, might not be able to do it. Discussed with the mother is at the bedside, all questions answered, in agreement. 04/21 patient has been seen and examined at bedside, case discussed with the RN, no acute events overnight, the time my visit he is awake, following commands, admits mild dry nonproductive cough, spiked fever 102.6. Denied chest pain, shortness shortness for breath, no nausea, no vomiting, no abdominal discomfort. The patient has a colostomy bag, on examination, liquid stool noted. WBC slowly trending down at 12.7, hemoglobin stable 11.6. Magnesium 1.7. Added doxycycline 100 mg IV q.12 hours. Follow serology to include SARS antigen, influenza and rapid strep. We will give magnesium sulfate 2 g IV x1. We will order GI stool panel. Patient is scheduled for MRI to the right knee today, continue lidocaine patch, discussed with the orthopedic physician today, we will follow input and recommendation. 04/22 patient is seen and examined at bedside, discussed with the RN. Patient currently feels nauseated. He admits mild discomfort to the right lower quadrant. BP 135/77, mildly tachycardic at 108, saturating normal on room air. Maximum temperature last 24 hours 102.7. CBC shows a hemoglobin of 11.6, hematocrit 35.7, platelet count of 276, with a platelet count of 23.8. Creatinine 2.1. MRI of the right knee shows tricompartmental osteoarthritis with osteophytosis and diffuse cartilage loss, medial and lateral meniscal with complex degenerative tear involving posterior horns and bodies, meniscal tear severity grade 3, full-thickness chondral defect of the lateral femoral condyle, with a underlying subchondral edema, small reactive joint effusion with mild synovitis. We will upgraded the patient to the PCU, LR at 50 mL/hours, follow repeat CBC, CMP and magnesium level. Continue Rocephin and doxycycline IV. We will order a CT of the abdomen and pelvis without contrast to rule out intra- abdominal acute pathology. Orthopedic input noted and appreciated, patient with bad arthritis, we will finally benefit from knee replacement, however considering his morbid obesity, it is not indicated right now. Recommended con servative approach. Mother at bedside, all questions answered, updated, in agreement with plan of care. 04/23 patient is seen and examined at bedside, discussed with the RN, no acute events overnight, patient upgraded to the ICU yesterday due to sepsis and developing small bowel obstruction. Today the patient is awake, following commands, he is NPO, NG tube to intermittent suction, BP 120/76, heart rate of 111, saturating 96% 3 L nasal cannula, temperature 98.4. WBC of 27.6, hemoglobin 10.6, hematocrit 35.5, platelet count 240, creatinine improved to 1.2. Septic workup with blood culture positive for Staphylococcus epidermidis. Echocardiogram and chest x-ray pending. Patient will remain admitted to the ICU, continue broad-spectrum IV antibiotics, we will follow surgical input recommendation. Continue to follow critical Care and ID input and recommendation. And we will update the mother regarding results of CT of the abdomen pelvis and further plan of care when she is present in the room. CT abdomen and pelvis reviewed, as follows: * Patient is undergoing mass evaluation. * Interval progression since 22 April 2025 with a new right upper lobe spiculated infiltrative mass measuring 5.4 ??? 4.6 cm infiltrating mediastinal pleura and abutting the right main pulmonary artery. * Bulky mediastinal lymphadenopathy with largest node measuring 4 cm, involving right paratracheal, prevascular, precarinal, and subcarinal stations, increased since prior study. * Multiple bilateral spiculated pulmonary nodules (1???2.5 cm), consistent with metastatic disease progression. * Bilateral marked diffuse adrenal enlargement (Right 5.9 ??? 3.6 cm, Left 7.6 ??? 5.4 cm), likely metastatic or hyperplastic. 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 * Degenerative thoracolumbar spondylosis with L4 vertebral body wedging (30???40% height loss), unchanged. * Comparison is made with the exam dated 22 April 2025. Overall findings indicate worsening metastatic disease with new primary and gloria lesions and mechanical bowel obstruction requiring clinical and surgical correlation. Recommendations include oncologic evaluation and PET-CT staging, alongside urgent surgical consultation for bowel obstruction. 04/24 patient is seen and examined at bedside, discussed with the RN, no acute events overnight, patient downgraded from the ICU to the PCU, he remains NPO, NG tube connected to intermittent suction, output in the last 12 hours 200 mL. BP 146/150, heart rate of 101, afebrile, saturating 96-97% on nasal cannula. CBC shows a hemoglobin of 9.9, hematocrit 33.5, platelet count of 235, with WBC of 21.3. CMP with sodium 146, potassium 3.8, BUN of 18, creatinine 0.9, magnesium 1.8. Blood culture 04/21/2025 positive for Staphylococcus epidermidis. Repeat blood cultures 04/23/2025 no growth after 24 hours echocardiogram 04/23/2025 LVEF 50-55%, no left ventricle thrombus, no intracardiac masses, no valvular vegetations. Today chest x-ray pending. Patient will remain admitted to the PCU, NPO, intermittent suction, continue to follow surgical input recommendation, continue broad-spectrum IV antibiotics, follow WBC in a.m.. Follow KUB. I HAVE CONTACTED THE DEPARTMENT OF MEDICAL RECORDS [facility], SPOKE WITH ZENA AT PHONE NUMBER [phone], I HAVE REQUESTED MEDICAL RECORDS. WE WILL FOLLOW UP. 04/25 patient is seen and examined at bedside, case discussed with the RN, no acute events overnight, he remains comfortably in bed, NPO, NG tube to intermittent suction, he is awake, following commands, BP 128/90, area of 101, afebrile. Still feels distended. On examination colostomy bag, enema output noted. KUB pending. KUB from 04/24/2025 showing markedly dilated small bowel loops up to 5.6 cm, consistent with distal small-bowel obstruction, no pneumoperitoneum, pneumatosis intestinalis or portal venous gas. I received medical records from [facility], patient was admitted on 11/19/2024 and discharged 12/08/2024. Areolar in the hospital patient underwent exploratory laparoscopy, laparotomy and creation of transverse loop colostomy 11/28/2024. Patient was evaluated by oncologist Braulio Bell. 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 Per my discussion with the mother, from [facility] [place] the patient was discharged to [facility] to recover and from there he went home. Patient has not had a follow up appointment with the general surgeon or oncologist after that. We have requested Oncology consultation here during this admission. Pathology report from rectal biopsy shows moderately differentiated adenocarcinoma, then new pulmonary nodules and mediastinal lymphadenopathy as per CT scan indicates the possibility of metastatic disease. CEA is [id number]. Req uested pulmonary nodule biopsy by IR. Patient will remain admitted to the PCU, we will continue NG tube to intermittent suction, NPO, TPN, follow surgical input and recommendation. Follow repeat KUB. Mother at bedside, updated, all questions answered. Plan of care discussed with the patient as well, in agreement. 04/26 patient is seen and examined at bedside, discussed with the RN, no acute events overnight, patient is status post CT-guided biopsy of left anterior rib mass, 04/26/2025, tolerated the procedure well. At the time of my visit, he is awake, following commands, denied chest pain, shortness shortness for breath, no nausea, no vomiting. Colostomy bag full of air. No stool or liquid noted. Plan is for the patient to start clear liquid diet and advanced as tolerated. We will follow results of pathology. Continue to follow a.m. labs. Mother at bedside, updated. 04/27 patient is seen and, discussed with the RN, no acute events overnight, alert oriented x3, tolerating clear liquid diet. Passing gas in the colostomy bag but no bowel movement yet. Patient was swollen to the right upper extremity. Doppler showing deep venous thrombosis involving the right axillary vein and brachial veins, nonocclusive thrombosis of the right cephalic vein (superficial venous thrombosis). Correlate clinically for pulmonary embolism risk. Hemoglobin of 10.4, hematocrit 35.9, platelet count of 18.7. Findings of Doppler discussed with the mother, we will start the patient on heparin drip, risks versus benefits discussed, agreed to proceed with the anticoagulation. We will insert midline in the left upper extremity. We will continue to clinically monitor the patient.status post CT-guided biopsy of left anterior rib mass, 04/26/2025, follow up pathology. Continue to follow oncology input and recommendation. 04/28 patient is seen and, discussed with the RN, no acute events overnight, alert oriented x3, remains admitted to the PCU, alert oriented x3 at the time of my visit, tolerating soft diet, passing gas but no BM yet. Doppler showing deep venous thrombosis involving the right axillary vein and brachial veins, nonocclusive thrombosis of the right cephalic vein (superficial venous thr ombosis). Continue heparin drip. Oncology input noted and appreciated. Patient will need Port-A-Cath insertion before discharge home. status post CT- guided biopsy of left anterior rib mass, 04/26/2025, follow up pathology. Continue broad-spectrum IV antibiotics, trend WBC in a.m. per mother at bedside, updated. 04/29/25 The patient continue with Heparin drip given to DVT right axillary vein and brachial vein: will transition to po close to discharged. This patient will need Port-A-Cath insertion before discharge home. This patient need to be clear for Port-A-Cath insertion by infectious disease 04/30/25 patient is lying in bed primary nurse reports no events overnight. Patient we will have IR place Port-A-Cath tomorrow. Patient continues with broad-spectrum antibiotics continues heparin drip transitioned to p.o. post procedure. 05/01 patient is seen and, discussed with the RN, no acute events overnight, alert oriented x3, remains admitted to the PCU, alert oriented x3 at the time of my visit, tolerating soft diet, passing gas but no BM yet. Doppler showing deep venous thrombosis involving the right axillary vein and brachial veins, nonocclusive thrombosis of the right cephalic vein (superficial venous thrombosis). Continue heparin drip. Oncology input noted and appreciated. Patient will need Port-A-Cath insertion before discharge home. IR consultation requested. status post CT-guided biopsy of left anterior rib mass, 04/26/2025, follow up pathology. Continue broad-spectrum IV antibiotics, trend WBC in a.m. per mother at bedside, updated. On physical examination, only small liquid o utput from colostomy bag, no solid stool noted. Discussed with surgery, recommended small-bowel series. Continue to trend WBC in a.m.. Patient may require transfer to higher level of care, we will discuss with case management. 05/02 patient is seen and, discussed with the RN, no acute events overnight, alert oriented x3, remains admitted to the PCU, alert oriented x3 at the time of my visit, tolerating soft diet, passing gas. Colostomy bag on exam looks more full compared to yesterday however not solid stool yet. Discussed with the surgery yesterday, recommended small-bowel series, likely to be completed today, we will follow up. 05/03 patient is seen and examined at bedside, discussed with the RN, no acute events overnight, patient remains comfortably in bed, alert oriented x3, feels hungry, passing gas, liquid stool noted in colostomy bag, still pending to complete small-bowel series. Patient remains on heparin drip, swollen to the right upper extremity almost resolved. Denies pain to the right upper arm. Continue to follow a.m. labs. Oncology input noted and appreciated, biopsy consistent with adenocarcinoma. Patient has stage IV colorectal cancer with metastatic disease to the lung. Peripheral bloood smear shows microcytic hypochromic anemia consistent with iron deficiency anemia . There is teardrop cell, pelger huet cell and rouleaux formation .Increased number of WBCs observed with neutrophilia and hypersegmented neutrophils suggestive of underlying infection . Band cells observed. Platelet morphology and count within normal limits .Discussed with the mother at bedside, all questions answered. In agreement. 05/04 patient is seen and examined at bedside, discussed with the RN, no acute events overnight, patient remains comfortably in bed, alert oriented x3, small- bowel series done 05/02/2025, still pending report. Continue the patient on TPN. Mother at bedside, updated. Follow a.m. labs. 05/05 patient is seen and examined at bedside, discussed with the RN, no acute events overnight, during my visit comfortably in bed, alert oriented x3, on TPN, results of small-bowel series no evidence of obstruction, patient is started on clear liquid diet. We will advance to soft diet today. Mother and father at bedside during my visit, updated. Per the mother, she stated that the patient is still have pain on both knees on is trying to work with the physical therapist. We will start the patient on Toradol 15. mg IV every 6 hours as needed monitor renal function in a.m.. Continue to follow CBC in a.m. transfuse as needed. Hematology and ID input noted and appreciated. 05/06 patient is seen and examined at bedside, discussed with the RN, no acute events overnight, during my visit comfortably in bed, alert oriented x3, patient was started on full liquid diet yesterday, however had episode of vomiting. He is still on TPN. Today blood pressure 153/99, afebrile, saturating 97% 2 L nasal cannula. Hemoglobin 10.7, hematocrit 34.2, WBC 17.1. Sodium level 129, with a 4.6, BUN 32, creatinine 0.7, magnesium 2.3. We will keep the patient on clear liquid diet. We will discuss case with the General surgery. Hold TPN as the patient with a hyponatremia, also on Lasix 20 mg IV b.i.d.. Continue Reglan and dexamethasone IV. Encourage out of bed to chair. Follow a.m. labs. Mother at bedside, updated, all questions answered. REVIEW OF SYSTEMS CONSTITUTIONAL: Denies fevers, chills, or night sweats. No unintentional weight loss reported. NEUROLOGICAL: Denies headache, amaurosis fugax, motor weakness, sensory deficit, vertigo/spinning sensation, gait abnormalities, or tremors. ENT: No hearing loss, otalgia, otorrhea, rhinitis, rhinorrhea, hoarseness, or sore throat. CARDIOVASCULAR: Denies any exertional angina, dyspnea on exertion, orthopnea, paroxysmal nocturnal dyspnea, palpitations, life-threatening arrhythmias, claudication. PULMONARY: Denies any shortness of breath, cough, phlegm/sputum, hemoptysis, pleuritic chest pain. SLEEP: Denies morning headaches, daytime somnolence or napping. Denies difficulty falling asleep, staying asleep, waking from sleep. Denies knowledge of snoring. GASTROINTESTINAL: Denies any type of dysphagia to either liquids or solids. Denies nausea, vomiting, pyrosis, early satiety, abdominal pain, diarrhea, constipation, or changes in stool consistency or caliber. Denies coffee-ground emesis, hematemesis, hematochezia, or melanotic stools. GENITOURINARY: Denies frequency, urgency, nocturia, hematuria or incontinence (Storage/Irritative symptoms.) Low urinary stream, straining to void, urinary intermittency or hesitancy, splitting of the voiding stream, terminal dribbling. ENDOCRINOLOGIC: Denies polyuria, polydipsia, polyphagia or heat/cold intolerances. HEMATOLOGIC: Denies thrombophilia/previous clots, or coagulopathy/bleeding disorders. ONCOLOGIC: Denies personal history of malignancy. DERMATOLOGIC: Denies rashes or pruritus. PSYCHIATRIC: Denies any suicidal or homicidal ideation. Denies hallucinations. PHYSICAL EXAM GENERAL APPEARANCE: Patient awake, following commands, NG tube to intermittent suction. NEUROLOGICAL: Cranial nerves II-XII grossly intact. Motor is 5/5 in bilateral upper and lower extremities proximal to distal. No sensory deficits. HEENT: Face is symmetric. Pupils are equal and reactive. Extraocular movements are intact. NECK: Supple. No JVD. No thyromegaly. No submental, submandibular, pre-/postauricular, occipital or supraclavicular lymphadenopathy. CHEST: Normal chest expansion. No Telemetry. LUNGS: Absence of any rales, rhonchi or any wheezing. CARDIOVASCULAR: Regular. S1 and S2 normal. No appreciable rubs, murmurs or gallops. ABDOMEN: Liquid output colostomy bag noted. : Deferred. No Doe. EXTREMITIES: Mild swelling to the right knee area, lidocaine patch in place. SKIN: No skin breakdown. Vital Signs (last 8hr) Date Time Temp Pulse Resp B/P (MAP) Pulse Ox O2 Delivery O2 Flow Rate FiO2 05/06/25 04:00 97.5 66 20 153/99 97 Nasal Cannula 2.0 05/06/25 00:56 98.4 65 20 115/76 97 Room Air LABS: Laboratory: Test 05/06/25 06:36 05/06/25 06:16 05/06/25 05:57 05/05/25 19:21 Range/Units White Blood Count 17.1 H 4.8-10.8 K/uL Red Blood Count 4.41 L 4.50-6.20 MIL/uL Hemoglobin 10.7 L 14.0-18.0 g/dL Hematocrit 34.2 L 42-54 % Mean Corpuscular Volume 77.6 L 79-99 fL Mean Corpuscular Hemoglobin 24.3 L 27.0-33.0 pg Mean Corpuscular Hemoglobin Concent 31.3 L 32.0-36.0 g/dL Red Cell Distribution Width 21.7 H 11.0-15.5 % Platelet Count 340 130-400 K/uL Mean Platelet Volume 10.9 H 7.5-10.5 fL Segmented Neutrophils % 84 H 40-70 % Band Neutrophils % 2 0-2 % Lymphocytes % (Manual) 6 L 22-44 % Monocytes % (Manual) 6 2-9 % Nucleated Red Blood Cells 0.0 0.0-0.19 % Differential Comment MANUAL DIFFERENTIAL Reactive Lymphocytes 2 H 0-0 % White Cell Morphology Comment TOXIC GRANULATION 2+ Platelet Morphology Comment ADEQUATE Red Blood Cell Morphology See comments Sodium Level 129 L 136-145 mmol/L Potassium Level 4.6 3.5-5.1 mmol/L Chloride Level 96 L 101-111 mmol/L Carbon Dioxide Level 28 21-32 mmol/L Blood Urea Nitrogen 32 H 7-18 mg/dL Creatinine 0.7 0.5-1.3 mg/dL Glomerular Filtration Rate Calc 123 >90 mL/min Random Glucose 156 H 70-105 mg/dL Total Calcium 8.5 8.5-10.1 mg/dL Phosphorus Level 4.3 2.5-4.9 mg/dL Magnesium Level 2.30 1.80-2.40 mg/dL Total Bilirubin 0.8 0.2-1.0 mg/dL Aspartate Amino Transf (AST/SGOT) 86 H 10-37 U/L Alanine Aminotransferase (ALT/SGPT) 88 H 12-78 U/L Alkaline Phosphatase 207 H 50-136 U/L Total Protein 7.3 6.0-8.3 g/dL Albumin 2.3 L 3.5-5.0 g/dL Vancomycin Level Trough 9.2 L 10.0-20.0 UG/ML Activated Partial Thromboplast Time 25.7 #L 26.3-35.5 SEC Whole Blood Glucose 168 H 70-110 MG/DL Bedside Glucose Comment Notified Nurse Current Medications Medications (Trade) Dose Ordered Sig/Checo Route PRN Reason Start Time Stop Time Status Last Admin Dose Admin Acetaminophen (TYLenol 325MG TAB) 650 mg Q6H PRN PO FEVER/pain 1-3 04/19/25 22:00 05/19/25 21:59 05/05/25 11:49 650 MG Benzonatate (Tessalon 100mg Caps) 100 mg Q8H PRN PO COUGH 05/03/25 11:00 06/02/25 10:59 05/03/25 11:32 100 MG Cefepime HCl (MAXipime 2 gm vial) 2 gm Q8H IVPB 04/22/25 13:00 04/30/25 13:07 DC 04/30/25 04:27 2 GM Cefepime HCl (MAXipime 2 gm vial) 2 gm Q8H IVPB 04/30/25 16:00 05/01/25 12:05 DC 05/01/25 00:34 2 GM Ceftriaxone Sodium (ROCEphine 1G INJ) 1 gm Q24H IVPB 04/20/25 10:00 04/22/25 12:41 DC 04/22/25 10:53 1 GM Dexamethasone Sodium Phosphate (dexaMETHasone 4MG/ML 1ML VIAL) 10 mg Q24H IV 05/01/25 17:00 05/02/25 09:13 DC 05/01/25 17:22 10 MG Dexamethasone Sodium Phosphate (dexaMETHasone 10MG/ML 1ML VIAL) 10 mg Q24H IV 05/02/25 17:00 05/31/25 16:59 05/05/25 17:42 10 MG Dextrose 1,000 ml @ 50 mls/hr Q20H IV 04/25/25 08:00 04/25/25 16:53 DC 04/25/25 10:38 100 MLS/HR Doxycycline Hyclate 250 ml @ 125 mls/hr Q12H IV 04/21/25 08:30 04/22/25 12:41 DC 04/22/25 08:14 125 MLS/HR Enoxaparin Sodium (Lovenox) 40 mg DAILY SQ 04/20/25 09:00 04/22/25 20:00 DC 04/22/25 08:14 40 MG Enoxaparin Sodium (Lovenox) 40 mg Q12H SQ 04/22/25 21:00 04/27/25 13:24 DC 04/27/25 08:10 40 MG Famotidine (Pepcid 20mg Vial) 20 mg BID IV 05/02/25 21:00 06/01/25 20:59 05/05/25 20:32 20 MG Famotidine (Pepcid 20mg Tab) 20 mg DAILY PO 04/20/25 09:00 05/02/25 12:03 DC 04/30/25 09:23 20 MG Fluconazole (DiFLUCan 100 mg TAB) 200 mg Q24H PO 05/01/25 12:30 05/02/25 12:03 DC Fluconazole/ Sodium Chloride (DiFLUCan 200 MG/ NS 100 ML) 200 mg Q24H IVPB 05/02/25 12:00 06/01/25 11:59 05/05/25 11:48 200 MG Furosemide (LASix 20MG VIAL) 20 mg Q12H IV 04/29/25 11:00 05/29/25 10:59 05/05/25 22:19 20 MG Furosemide (LASix 20MG VIAL) 20 mg Q8H IV 04/24/25 19:00 04/25/25 03:01 DC 04/25/25 03:06 20 MG Heparin Sodium (Porcine) (HEParin 5,000 UNIT VIAL) *calculation based on ACTUAL B... AD PRN IV HEPARIN PROTOCOL 04/27/25 14:00 05/27/25 13:59 Heparin Sodium/ Dextrose 250 ml @ 0 mls/hr Q6H IV 04/27/25 14:00 05/27/25 13:59 05/06/25 06:17 18.95 MLS/HR Hydralazine HCl (APRESOLine 20MG INJ) 5 mg Q6H PRN IV For:SBP above 160;DBP above 90 04/20/25 16:00 05/20/25 15:59 Hydralazine HCl (APRESOLine 20MG INJ) 10 mg Q6H PRN IV For:SBP above 160;DBP above 90 04/19/25 22:00 04/20/25 10:52 DC Hydromorphone HCl (DiLAUDid 0.5MG INJ) 0.5 mg Q4H PRN IVP SEVERE PAIN (7-10) 04/22/25 20:00 04/27/25 19:59 DC Ipratropium [place] (AtrovENT UD) 0.5 MG Q6H PRN IH SHORTNESS OF BREATH 04/28/25 19:30 05/28/25 19:29 04/29/25 11:10 0.5 MG Iron Sucrose (VenoFER) 200 mg DAILY IV 04/26/25 09:00 04/28/25 11:00 DC 04/28/25 09:20 200 MG Ketorolac Tromethamine (toRADol) 15 mg Q6H PRN IM MODERATE PAIN (4-6) 04/30/25 11:30 05/05/25 11:29 DC 05/03/25 14:33 15 MG Ketorolac Tromethamine (toRADol) 15 mg Q6H PRN IV MODERATE PAIN (4-6) 04/20/25 11:00 04/22/25 19:58 DC 04/20/25 22:08 15 MG Ketorolac Tromethamine (toRADol) 15 mg Q6H PRN IV MODERATE PAIN (4-6) 05/05/25 14:30 05/10/25 14:29 Labetalol HCl (TRANdate 20MG SYG) 10 mg Q6H PRN IV SUSTAINED HR >120 04/23/25 00:00 05/23/25 00:00 Lactated Ringer's 1,000 ml @ 50 mls/hr Q20H IV 04/21/25 12:30 04/25/25 07:47 DC 04/24/25 02:58 75 MLS/HR Lactated Ringer's 1,000 ml @ 100 mls/hr Q10H IV 04/19/25 22:00 04/20/25 10:52 DC 04/21/25 12:40 100 MLS/HR Lactulose (Constulose 20gm/ 30ml Udcup) 20 gm ACHS PRN PO CONSTIPATION 04/29/25 20:00 04/30/25 13:06 DC 04/30/25 09:33 20 GM Lactulose (Constulose 20gm/ 30ml Udcup) 20 gm BID PRN PO CONSTIPATION 04/19/25 22:00 04/29/25 19:41 DC Lactulose (Constulose 20gm/ 30ml Udcup) 20 gm Q6HWA PRN PO CONSTIPATION 04/30/25 13:00 05/30/25 12:59 Lidocaine (Lidocaine Patch 4%) 1 each DAILY TP 04/21/25 09:00 05/21/25 08:59 05/05/25 10:08 1 EACH Magnesium Sulfate 50 ml @ 0 mls/hr PROTOCOL IV 04/21/25 08:30 05/21/25 08:29 04/24/25 06:11 25 MLS/HR Meropenem (Merrem 1gm) 1 gm Q8H IVPB 05/01/25 12:30 05/02/25 12:29 DC 05/02/25 04:15 1 GM Meropenem (Merrem 1gm) 1 gm Q8H IVPB 05/04/25 16:30 05/14/25 16:29 05/06/25 00:21 1 GM Metoclopramide HCl (regLAN 10MG IV) 10 mg Q6H6 IVP 05/01/25 18:00 05/31/25 17:59 05/06/25 06:15 10 MG Metronidazole/ Sodium Chloride 100 ml @ 100 mls/hr Q8H6 IVPB 04/22/25 14:00 05/02/25 13:59 DC 05/02/25 09:55 100 MLS/HR Morphine Sulfate (morPHINE 4MG SYG) 4 mg Q4H PRN IVP SEVERE PAIN (7-10) 04/19/25 22:00 04/20/25 10:52 DC Nystatin (NystOP 15 GM POWDER) 1 APPLICATION BID TP 04/26/25 14:00 05/26/25 13:59 05/05/25 20:32 1 APPL Ondansetron HCl (zoFRAN 4MG INJ) 4 mg Q6H PRN IV NAUSEA/VOMITING 04/19/25 22:00 05/19/25 21:59 04/24/25 22:19 4 MG Pharmacy Profile Note (Pharmacy Communication) 1 each ONCE MISC 05/01/25 12:30 05/01/25 12:11 DC Pharmacy Profile Note (Pharmacy Communication) 1 each ONCE MISC 05/04/25 16:30 05/04/25 16:22 DC Potassium Chloride 100 ml @ 100 mls/hr PROTOCOL PRN IV hypokalemia 05/01/25 21:00 05/31/25 20:59 05/01/25 22:29 100 MLS/HR Promethazine HCl (Phenergan) 12.5 mg Q8H5 PRN IM NAUSEA/VOMITING 04/22/25 12:30 05/22/25 12:29 10/25/25 12:25 12.5 MG Sodium Chloride 500 ml @ 0 mls/hr Q0M STAT IV 04/22/25 13:17 04/22/25 13:22 DC 04/22/25 14:39 600 MLS/HR Vancomycin HCl 250 ml @ 125 mls/hr Q12H IV 05/06/25 08:00 05/16/25 07:59 Vancomycin HCl 250 ml @ 125 mls/hr Q24H IV 05/01/25 05:00 05/06/25 07:19 DC 05/05/25 05:03 125 MLS/HR Vancomycin HCl 250 ml @ 125 mls/hr Q8H IV 04/29/25 21:00 04/30/25 14:25 DC 04/30/25 05:52 125 MLS/HR Vancomycin HCl (Vancomycin Protocol) 1 each AD IV 04/22/25 15:00 04/23/25 22:23 DC Vancomycin HCl (Vancomycin Protocol) 1 each AD IV 04/29/25 11:00 05/13/25 10:59 DIAGNOSTICS / RADIOLOGY: [ ] ASSESSMENT: Severe sepsis with MODS, resolved Leukocytosis Gram-positive cocci bacteremia Status post left rib biopsy by IR on 04/26/2025 New right upper lobe spiculated infiltrative mass measuring 5.4 x 4.6 cm infiltrating mediastinal pleura and albumin in the right main pulmonary artery Bulky mediastinal lymphadenopathy with the largest node measuring 4 cm involving the right paratracheal, prevascular, and subcarinal stations Multiple bilateral spiculated pulmonary nodules consistent with metastatic dise ase progression Bilateral marked diffuse adrenal enlargement likely metastatic or hyperplastic Left iliac fossa 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 Right upper extremity DVT involving the axillary and brachial veins Small-bowel obstruction Stage IV colorectal cancer with metastatic disease to the lung, pathology consistent with moderately differentiated adenocarcinoma, POA PLAN: patient is seen and examined at bedside, discussed with the RN, no acute events overnight, during my visit comfortably in bed, alert oriented x3, patient was started on full liquid diet yesterday, however had episode of vomiting. He is still on TPN. Today blood pressure 153/99, afebrile, saturating 97% 2 L nasal cannula. Hemoglobin 10.7, hematocrit 34.2, WBC 17.1. Sodium level 129, with a 4.6, BUN 32, creatinine 0.7, magnesium 2.3. We will keep the patient on clear liquid diet. We will discuss case with the General surgery. Hold TPN as the patient with a hyponatremia, also on Lasix 20 mg IV b.i.d.. Continue Reglan and dexamethasone IV. Encourage out of bed to chair. Follow a.m. labs. Mother at bedside, updated, all questions answered. NEURO: Minimize central acting medications as possible. Fall Precautions. Well lighted room through the day and minimize interruptions through the night to prevent acute delirium. PULMONARY: Supplemental 02 as needed BiPAP as necessary, for respiratory distress Titrate Fio2 to keep Spo2 > or = 90% DuoNebs and CPT as needed IS hourly while awake for pulmonary hygiene prn Out of bed to chair as tolerated Maintain aspiration precautions at all times CARDIOVASCULAR: Follow hemodynamics. Vital signs per facility protocol GI & NUTRITION: Continue nutritional support Aspirations precautions Prokinetic agents and laxatives as needed KIDNEYS & ELECTROLYTES: Strict monitoring of intake and output Daily weights Avoid nephrotoxic agents Monitor electrolytes and replace as needed Goal urine output of 30mL/hr or 0.5mL/kg/hr Medications to be dosed according to renal function. Avoid contrast if possible ENDOCRINE: Maintain blood glucose between 100-180 at all times. Insulin sliding scale for blood glucose management Hypoglycemia and hyperglycemia protocol in place INFECTIOUS DISEASE: Trend temperature, WBC and procalcitonin level Follow cultures, deescalate antibiotics as soon as possible. Panculture if new onset fever HEMATOLOGY & COAGULATION: Monitor H&H. Keep Hgb > 7 Transfuse 1 unit of PRBC for Hgb < 7 Transfuse 1 pack of platelets of platelets < 20, 000 Watch for any signs and symptoms of bleeding SKIN: Pressure ulcer prevention per facility protocol Specialty mattress as needed ORTHO/REHAB Continue PT/OT PRN: MEDICATIONS Tylenol 650 mg po every 4 hrs for fever zofran 4 mg IV every 6 hrs for n/v Hydralazine 5 mg IV every 4 hrs systolic pressure > 160 bowel regiment: lactulose 20 gm PO BID PRN constipation Supportive measures: Continue GI and DVT prophylaxis Disposition: Pending improvement in clinical condition All questions answered time spent: > 35 min TITA PETERSON MD May 06, 2025 07:55
--- NOTE | 2025-05-06 10:49 | NUR ---
A/P DR PETERSON TO HOLD CLINIMIX AT THIS TIME D/T DECREASED NA
[2025-05-06] MEDS: VANCOMYCIN 1G/250ML KIT 250 ML IV SCH (11:28)
--- NOTE | 2025-05-06 11:48 | PN ---
GENERAL SURGERY PROGRESS NOTE DATE OF SERVICE: May 06, 2025 TIME OF SERVICE: 11:47 PROBLEM LISTS: [ ] INTERVAL HISTORY: [ ] PHYSICAL EXAMINATION: GENERAL: [Patient is lying comfortably in bed, not in any obvious distress.] HEAD: [Normal with no signs of head trauma.] EYES: [Not pale not jaundiced afebrile to touch.] ENT: [ Normal.] NECK: [Supple,no tenderness,no lymphadenopathy,no masses,no thyromegaly ,no bruits, no JVD.] LUNGS: [Clear breath sounds bilaterally. No wheezes, rales, or rhonchi.] HEART: [Regular rate and rhythm. Normal S1 and S2, without murmurs, rub or gallop.] VASC: [No edema. Peripheral pulses normal and equal in all extremities.] ABD: [Bowel sounds present,soft, RUQ tender, no masses, no organomegaly.] : [Normal, no suprapubic tenderness.] LYMPH: [No lymphadenopathy noted.] EXT: [ Warm soft, non tender.] SKIN: [ No rashes or lesions.] NEURO: [ Awake Alert and oriented x3.] LABORATORY: [ ] Hematology Labs: Test 05/06/25 06:36 Range/Units White Blood Count 17.1 H 4.8-10.8 K/uL Red Blood Count 4.41 L 4.50-6.20 MIL/uL Hemoglobin 10.7 L 14.0-18.0 g/dL Hematocrit 34.2 L 42-54 % Mean Corpuscular Volume 77.6 L 79-99 fL Mean Corpuscular Hemoglobin 24.3 L 27.0-33.0 pg Mean Corpuscular Hemoglobin Concent 31.3 L 32.0-36.0 g/dL Red Cell Distribution Width 21.7 H 11.0-15.5 % Platelet Count 340 130-400 K/uL Mean Platelet Volume 10.9 H 7.5-10.5 fL Segmented Neutrophils % 84 H 40-70 % Band Neutrophils % 2 0-2 % Lymphocytes % (Manual) 6 L 22-44 % Monocytes % (Manual) 6 2-9 % Nucleated Red Blood Cells 0.0 0.0-0.19 % Differential Comment MANUAL DIFFERENTIAL Reactive Lymphocytes 2 H 0-0 % White Cell Morphology Comment TOXIC GRANULATION 2+ Platelet Morphology Comment ADEQUATE Red Blood Cell Morphology See comments Chemistry Labs: Test 05/06/25 06:36 05/06/25 05:57 05/05/25 19:21 Range/Units Sodium Level 129 L 136-145 mmol/L Potassium Level 4.6 3.5-5.1 mmol/L Chloride Level 96 L 101-111 mmol/L Carbon Dioxide Level 28 21-32 mmol/L Blood Urea Nitrogen 32 H 7-18 mg/dL Creatinine 0.7 0.5-1.3 mg/dL Glomerular Filtration Rate Calc 123 >90 mL/min Random Glucose 156 H 70-105 mg/dL Total Calcium 8.5 8.5-10.1 mg/dL Phosphorus Level 4.3 2.5-4.9 mg/dL Magnesium Level 2.30 1.80-2.40 mg/dL Total Bilirubin 0.8 0.2-1.0 mg/dL Aspartate Amino Transf (AST/SGOT) 86 H 10-37 U/L Alanine Aminotransferase (ALT/SGPT) 88 H 12-78 U/L Alkaline Phosphatase 207 H 50-136 U/L Total Protein 7.3 6.0-8.3 g/dL Albumin 2.3 L 3.5-5.0 g/dL Whole Blood Glucose 168 H 70-110 MG/DL Bedside Glucose Comment Notified Nurse Coagulation Labs: Test 05/06/25 06:16 Range/Units Activated Partial Thromboplast Time 25.7 #L 26.3-35.5 SEC DIAGNOSTICS / RADIOLOGY: [Copy/Paste Echos/Imaging Report here] ASSESSMENT: [] PLAN: Diet Wean to off TPN Nothing surgical JUD BRAVO MD May 06, 2025 11:48
--- NOTE | 2025-05-06 12:00 | NUR ---
DR FENG AT BEDSIDE, PLAN TO RESTART CLINIMIX AT CURRWENT RATE AND TO DECREASE TO 50 UNITS ON NEXT BAG. ALSO PLAN FOR PORT A CATH PLACEMENT BY IR ON THURSDAY
[2025-05-06] MEDS: BENZOCAINE/MENTH/CETYLPYRD CL 1 EACH LOZENGE MM ONE (12:10)
--- NOTE | 2025-05-06 13:01 | PN ---
NEPHROLOGY PROGRESS NOTE Date/Time Patient Seen: May 06, 2025 SUBJECTIVE: This is a 35-year-old male with a past medical history of morbid obesity, colon mass S/p resection with colostomy. He presented to emergency room with complaints of right knee pain. He has had a prolonged hospital stay. He was initially admitted with the acute on chronic renal failure. He does have a history of metastatic disease. S/p lung biopsy consistent with adenocarcinoma, stage IV Colorectal cancer with metastatic disease to the lung The patient's renal function has remained fairly stable in the patient has been seen as a follow up visit for all the above. Renal function is stable Electrolytes show hyponatremia. He continues on antibiotics including vancomycin Continues on Lasix 20 mg IV q.12 hours and TPN He continues on heparin drip for DVT. He was seen in the medical floor, in no acute distress Multiple family members at the bedside REVIEW OF SYSTEMS: GENERAL: Positive for generalized weakness NEUROLOGIC: Negative for any blurry vision, blind spots, double vision, facial asymmetry, dysphagia, dysarthria, hemiparesis, hemisensory deficits, vertigo, ataxia. HEENT: Negative for any head trauma, neck trauma, neck stiffness, photophobia, phonophobia, sinusitis, rhinitis. CARDIAC: Negative for any chest pain, dyspnea on exertion, paroxysmal nocturnal dyspnea, peripheral edema. PULMONARY: Negative for any shortness of breath, wheezing, COPD, or TB exposure. GASTROINTESTINAL: Negative for any abdominal pain, nausea, vomiting, bright red blood per rectum, melena. GENITOURINARY: Negative for any dysuria, hematuria, incontinence. INTEGUMENTARY: Negative for any rashes, cuts, insect bites. RHEUMATOLOGIC: Negative for any joint pains, photosensitive rashes, history of vasculitis or kidney problems. HEMATOLOGIC: Negative for any abnormal bruising, frequent infections or bleeding. Vital Signs (last 8hr) Date Time Temp Pulse Resp B/P (MAP) Pulse Ox O2 Delivery O2 Flow Rate FiO2 05/03/25 13:07 97.9 89 18 121/42 93 Room Air 05/03/25 11:44 20 N/Cannula Low lpm 3.0 32 05/03/25 11:00 97.7 76 20 113/54 94 Nasal Cannula 3.0 05/03/25 08:02 20 N/Cannula Low lpm 3.0 32 05/03/25 08:00 93 Nasal Cannula* 3 32 05/03/25 07:00 97.3 85 20 104/59 93 Nasal Cannula 3.0 PHYSICAL EXAM: GENERAL: Alert and oriented x 3. No acute distress. Well-nourished. EYES: EOMI. Anicteric. HENT: Moist mucous membranes. No scleral icterus. No cervical lymphadenopathy. LUNGS: Clear to auscultation bilaterally. No accessory muscle use. CARDIOVASCULAR: Regular rate and rhythm. No murmur. No JVD. ABDOMEN: Soft, non-tender and non-distended. No palpable masses. EXTREMITIES: No edema. Non-tender. SKIN: No rashes or lesions. Warm. NEUROLOGIC: No focal neurological deficits. CN II-XII grossly intact, but not individually tested. PSYCHIATRIC: Cooperative. Appropriate mood and affect. Current Medications Medications (Trade) Dose Ordered Sig/Checo Route PRN Reason Start Time Stop Time Status Last Admin Dose Admin Acetaminophen (TYLenol 325MG TAB) 650 mg Q6H PRN PO FEVER/pain 1-3 04/19/25 22:00 05/19/25 21:59 04/21/25 02:20 650 MG Benzonatate (Tessalon 100mg Caps) 100 mg Q8H PRN PO COUGH 05/03/25 11:00 06/02/25 10:59 05/03/25 11:32 100 MG Cefepime HCl (MAXipime 2 gm vial) 2 gm Q8H IVPB 04/22/25 13:00 04/30/25 13:07 DC 04/30/25 04:27 2 GM Cefepime HCl (MAXipime 2 gm vial) 2 gm Q8H IVPB 04/30/25 16:00 05/01/25 12:05 DC 05/01/25 00:34 2 GM Ceftriaxone Sodium (ROCEphine 1G INJ) 1 gm Q24H IVPB 04/20/25 10:00 04/22/25 12:41 DC 04/22/25 10:53 1 GM Dexamethasone Sodium Phosphate (dexaMETHasone 4MG/ML 1ML VIAL) 10 mg Q24H IV 05/01/25 17:00 05/02/25 09:13 DC 05/01/25 17:22 10 MG Dexamethasone Sodium Phosphate (dexaMETHasone 10MG/ML 1ML VIAL) 10 mg Q24H IV 05/02/25 17:00 05/31/25 16:59 05/02/25 16:57 10 MG Dextrose 1,000 ml @ 50 mls/hr Q20H IV 04/25/25 08:00 04/25/25 16:53 DC 04/25/25 10:38 100 MLS/HR Doxycycline Hyclate 250 ml @ 125 mls/hr Q12H IV 04/21/25 08:30 04/22/25 12:41 DC 04/22/25 08:14 125 MLS/HR Enoxaparin Sodium (Lovenox) 40 mg DAILY SQ 04/20/25 09:00 04/22/25 20:00 DC 04/22/25 08:14 40 MG Enoxaparin Sodium (Lovenox) 40 mg Q12H SQ 04/22/25 21:00 04/27/25 13:24 DC 04/27/25 08:10 40 MG Famotidine (Pepcid 20mg Vial) 20 mg BID IV 05/02/25 21:00 06/01/25 20:59 05/03/25 10:25 20 MG Famotidine (Pepcid 20mg Tab) 20 mg DAILY PO 04/20/25 09:00 05/02/25 12:03 DC 04/30/25 09:23 20 MG Fluconazole (DiFLUCan 100 mg TAB) 200 mg Q24H PO 05/01/25 12:30 05/02/25 12:03 DC Fluconazole/ Sodium Chloride (DiFLUCan 200 MG/ NS 100 ML) 200 mg Q24H IVPB 05/02/25 12:00 06/01/25 11:59 05/03/25 11:32 200 MG Furosemide (LASix 20MG VIAL) 20 mg Q12H IV 04/29/25 11:00 05/29/25 10:59 05/03/25 10:25 20 MG Furosemide (LASix 20MG VIAL) 20 mg Q8H IV 04/24/25 19:00 04/25/25 03:01 DC 04/25/25 03:06 20 MG Heparin Sodium (Porcine) (HEParin 5,000 UNIT VIAL) *calculation based on ACTUAL B... AD PRN IV HEPARIN PROTOCOL 04/27/25 14:00 05/27/25 13:59 Heparin Sodium/ Dextrose 250 ml @ 0 mls/hr Q6H IV 04/27/25 14:00 05/27/25 13:59 05/02/25 16:59 19.17 MLS/HR Hydralazine HCl (APRESOLine 20MG INJ) 5 mg Q6H PRN IV For:SBP above 160;DBP above 90 04/20/25 16:00 05/20/25 15:59 Hydralazine HCl (APRESOLine 20MG INJ) 10 mg Q6H PRN IV For:SBP above 160;DBP above 90 04/19/25 22:00 04/20/25 10:52 DC Hydromorphone HCl (DiLAUDid 0.5MG INJ) 0.5 mg Q4H PRN IVP SEVERE PAIN (7-10) 04/22/25 20:00 04/27/25 19:59 DC Ipratropium [place] (AtrovENT UD) 0.5 MG Q6H PRN IH SHORTNESS OF BREATH 04/28/25 19:30 05/28/25 19:29 04/29/25 11:10 0.5 MG Iron Sucrose (VenoFER) 200 mg DAILY IV 04/26/25 09:00 04/28/25 11:00 DC 04/28/25 09:20 200 MG Ketorolac Tromethamine (toRADol) 15 mg Q6H PRN IM MODERATE PAIN (4-6) 04/30/25 11:30 05/05/25 11:29 Ketorolac Tromethamine (toRADol) 15 mg Q6H PRN IV MODERATE PAIN (4-6) 04/20/25 11:00 04/22/25 19:58 DC 04/20/25 22:08 15 MG Labetalol HCl (TRANdate 20MG SYG) 10 mg Q6H PRN IV SUSTAINED HR >120 04/23/25 00:00 05/23/25 00:00 Lactated Ringer's 1,000 ml @ 50 mls/hr Q20H IV 04/21/25 12:30 04/25/25 07:47 DC 04/24/25 02:58 75 MLS/HR Lactated Ringer's 1,000 ml @ 100 mls/hr Q10H IV 04/19/25 22:00 04/20/25 10:52 DC 04/21/25 12:40 100 MLS/HR Lactulose (Constulose 20gm/ 30ml Udcup) 20 gm ACHS PRN PO CONSTIPATION 04/29/25 20:00 04/30/25 13:06 DC 04/30/25 09:33 20 GM Lactulose (Constulose 20gm/ 30ml Udcup) 20 gm BID PRN PO CONSTIPATION 04/19/25 22:00 04/29/25 19:41 DC Lactulose (Constulose 20gm/ 30ml Udcup) 20 gm Q6HWA PRN PO CONSTIPATION 04/30/25 13:00 05/30/25 12:59 Lidocaine (Lidocaine Patch 4%) 1 each DAILY TP 04/21/25 09:00 05/21/25 08:59 05/03/25 10:25 1 EACH Magnesium Sulfate 50 ml @ 0 mls/hr PROTOCOL IV 04/21/25 08:30 05/21/25 08:29 04/24/25 06:11 25 MLS/HR Meropenem (Merrem 1gm) 1 gm Q8H IVPB 05/01/25 12:30 05/02/25 12:29 DC 05/02/25 04:15 1 GM Metoclopramide HCl (regLAN 10MG IV) 10 mg Q6H6 IVP 05/01/25 18:00 05/31/25 17:59 05/03/25 11:32 10 MG Metronidazole/ Sodium Chloride 100 ml @ 100 mls/hr Q8H6 IVPB 04/22/25 14:00 05/02/25 13:59 DC 05/02/25 09:55 100 MLS/HR Morphine Sulfate (morPHINE 4MG SYG) 4 mg Q4H PRN IVP SEVERE PAIN (7-10) 04/19/25 22:00 04/20/25 10:52 DC Nystatin (NystOP 15 GM POWDER) 1 APPLICATION BID TP 04/26/25 14:00 05/26/25 13:59 05/03/25 10:25 1 APPL Ondansetron HCl (zoFRAN 4MG INJ) 4 mg Q6H PRN IV NAUSEA/VOMITING 04/19/25 22:00 05/19/25 21:59 04/24/25 22:19 4 MG Pharmacy Profile Note (Pharmacy Communication) 1 each ONCE MISC 05/01/25 12:30 05/01/25 12:11 DC Potassium Chloride 100 ml @ 100 mls/hr PROTOCOL PRN IV hypokalemia 05/01/25 21:00 05/31/25 20:59 05/01/25 22:29 100 MLS/HR Promethazine HCl (Phenergan) 12.5 mg Q8H5 PRN IM NAUSEA/VOMITING 04/22/25 12:30 05/22/25 12:29 04/22/25 12:25 12.5 MG Sodium Chloride 500 ml @ 0 mls/hr Q0M STAT IV 04/22/25 13:17 04/22/25 13:22 DC 04/22/25 14:39 600 MLS/HR Vancomycin HCl 250 ml @ 125 mls/hr Q24H IV 05/01/25 05:00 05/11/25 04:59 05/03/25 05:41 125 MLS/HR Vancomycin HCl 250 ml @ 125 mls/hr Q8H IV 04/29/25 21:00 04/30/25 14:25 DC 04/30/25 05:52 125 MLS/HR Vancomycin HCl (Vancomycin Protocol) 1 each AD IV 04/22/25 15:00 04/23/25 22:23 DC Vancomycin HCl (Vancomycin Protocol) 1 each AD IV 04/29/25 11:00 05/13/25 10:59 LABORATORY: [ ] Hematology Labs: Test 05/06/25 06:36 Range/Units White Blood Count 17.1 H 4.8-10.8 K/uL Red Blood Count 4.41 L 4.50-6.20 MIL/uL Hemoglobin 10.7 L 14.0-18.0 g/dL Hematocrit 34.2 L 42-54 % Mean Corpuscular Volume 77.6 L 79-99 fL Mean Corpuscular Hemoglobin 24.3 L 27.0-33.0 pg Mean Corpuscular Hemoglobin Concent 31.3 L 32.0-36.0 g/dL Red Cell Distribution Width 21.7 H 11.0-15.5 % Platelet Count 340 130-400 K/uL Mean Platelet Volume 10.9 H 7.5-10.5 fL Segmented Neutrophils % 84 H 40-70 % Band Neutrophils % 2 0-2 % Lymphocytes % (Manual) 6 L 22-44 % Monocytes % (Manual) 6 2-9 % Nucleated Red Blood Cells 0.0 0.0-0.19 % Differential Comment MANUAL DIFFERENTIAL Reactive Lymphocytes 2 H 0-0 % White Cell Morphology Comment TOXIC GRANULATION 2+ Platelet Morphology Comment ADEQUATE Red Blood Cell Morphology See comments Chemistry Labs: Test 05/06/25 11:57 05/06/25 06:36 05/05/25 19:21 Range/Units Whole Blood Glucose 135 H 70-110 MG/DL Sodium Level 129 L 136-145 mmol/L Potassium Level 4.6 3.5-5.1 mmol/L Chloride Level 96 L 101-111 mmol/L Carbon Dioxide Level 28 21-32 mmol/L Blood Urea Nitrogen 32 H 7-18 mg/dL Creatinine 0.7 0.5-1.3 mg/dL Glomerular Filtration Rate Calc 123 >90 mL/min Random Glucose 156 H 70-105 mg/dL Total Calcium 8.5 8.5-10.1 mg/dL Phosphorus Level 4.3 2.5-4.9 mg/dL Magnesium Level 2.30 1.80-2.40 mg/dL Total Bilirubin 0.8 0.2-1.0 mg/dL Aspartate Amino Transf (AST/SGOT) 86 H 10-37 U/L Alanine Aminotransferase (ALT/SGPT) 88 H 12-78 U/L Alkaline Phosphatase 207 H 50-136 U/L Total Protein 7.3 6.0-8.3 g/dL Albumin 2.3 L 3.5-5.0 g/dL Bedside Glucose Comment Notified Nurse Coagulation Labs: Test 05/06/25 06:16 Range/Units Activated Partial Thromboplast Time 25.7 #L 26.3-35.5 [facility] / RADIOLOGY: [address] [address] IMAGING REPORT Signed PATIENT: MARTY BARRON MR#: [id number] : 1990 SEX: M AGE: 35 LOCATION: 3C ORDER 1046 STATUS: ADM IN REPORT#: [id number] SERVICE 1045 REASON: RULE OUT BOWEL OBSTRUCTION OR ILIEUS ORDERING PHYSICIAN: TITA PETERSON MD PROCEDURE: SBFT - SM BOWEL SERIES SMALL BOWEL SERIES HISTORY: Status post colon resection with ostomy placement 2 months ago COMPARISON: None. TECHNIQUE: A small bowel series was performed with serial radiographs of the abdomen and pelvis obtained after oral administration of contrast. Patient was given 180 cc of Gastrografin. FINDINGS: INFANTRY INDIRECT FIRE CREWMEMBER: No evidence for free air. No unusual calcifications detected. Small bowels are dilated air-filled suggesting of possible ileus. There are surgical clips in the right upper quadrant. After oral administration of 90 cc of Gastrografin, normal opacification of the stomach noted without evidence for malrotation. The duodenum, jejunum, and ileum appear normal in caliber. The mucosal pattern appears grossly normal, without evidence for obstruction or discrete filling defect. Transit time through the small bowel was approximately 24 hours with Gastrografin has reached large bowel and sigmoid colon. (normal is 1-4 hrs). The terminal ileum was spotted, and no strictures or masses detected. IMPRESSION: There is resolving Gastrografin small bowel follow-through with 24-hour the Gastrografin has reached sigmoid colon and transverse colon. DICTATED BY: LEXIE NG MD DATE: 05/04/251651 ELECTRONICALLY SIGNED BY: LEXIE NG MD DATE: 05/04/251657 PATIENT: MARTY BARRON MR#: [id number] : 1990 SEX: M AGE: 35 LOCATION: [facility] ORDER 2300 STATUS: ADM IN REPORT#: [id number] SERVICE 0600 REASON: decreased ostomy output ORDERING PHYSICIAN: SAROJ MAGDALENO PROCEDURE: CXR1VW - CHEST 1VW EXAM: CR Chest, 1 View. CLINICAL HISTORY: decreased ostomy output COMPARISON: 05/01/2025 FINDINGS: LUNGS: Persistent right paratracheal opacity. Right inhomogeneous airspace opacities in the mid and lower zones, stable. Mild pulmonary vascular congestion. PLEURAL SPACES: No evidence of pleural effusion or pneumothorax. MEDIASTINUM: The cardiomediastinal silhouette is within normal limits. BONES: No acute osseous abnormality. IMPRESSION: 1. Stable right paratracheal opacity and right mid and lower zone airspace opacities. 2. Mild pulmonary vascular congestion. /[place] DICTATED BY: LYNDSEY ENRIQUE MD DATE: 05/03/251719 ELECTRONICALLY SIGNED BY: LYNDSEY ENRIQUE MD DATE: 05/03/251719 PATIENT: MARTY BARRON MR#: [id number] : 1990 SEX: M AGE: 35 LOCATION: 2DH ORDER 1434 STATUS: ADM IN REPORT#: [id number] SERVICE 143 REASON: RULE OUT OBSTRUCTION VS ILIEUS ORDERING PHYSICIAN: TITA PETERSON MD PROCEDURE: ABD 1VW - ABD 1VW EXAM: CR Abdomen, 4 View. CLINICAL HISTORY: RULE OUT OBSTRUCTION VS ILIEUS COMPARISON: Radiograph dated April 30, 2025 FINDINGS: Redemonstrated air-filled dilated loops of small bowel measuring up to 5.[address] imaging to exclude small bowel ileus versus a partial distal small bowel obstruction. IMPRESSION: 1. Dilated small bowel loops up to 5.0 cm, concerning for ileus or partial small bowel obstruction. CT imaging recommended for further evaluation. /[place] DICTATED BY: ANTONIO STEINBERG Jr., MD DATE: 05/01/251946 ELECTRONICALLY SIGNED BY: ANTONIO STEINBERG Jr., MD DATE: 05/01/251946 PATIENT: MARTY BARRON MR#: [id number] : 1990 SEX: M AGE: 35 LOCATION: 2DH ORDER 2300 STATUS: ADM IN REPORT#: [id number] SERVICE 0600 REASON: decreased ostomy output ORDERING PHYSICIAN: SAROJ MAGDALENOCNAntonia PROCEDURE: CXR1VW - CHEST 1VW EXAM: CR Chest, 1 View. CLINICAL HISTORY: Decreased ostomy output. COMPARISON: CR ??? Chest 1 View dated 04/30/25, 08:56 EST. FINDINGS: LUNGS: Persistent right paratracheal opacity with inhomogeneous airspace infiltrates in the right lung. Inhomogeneous airspace infiltrates in the left upper lung appear decreased, suggesting interval resolution. No new pulmonary consolidation or mass. PLEURAL SPACES: No pleural effusion or pneumothorax. MEDIASTINUM: Cardiomediastinal silhouette within normal limits. BONES: No acute or aggressive osseous lesion. IMPRESSION: * Persistent right paratracheal opacity with inhomogeneous right lung infiltrates. * Interval resolving left upper lung infiltrates. * No pleural effusion or pneumothorax. Comparison: Compared with prior radiograph dated 04/30/25, right-sided opacities persist while left upper lung infiltrates show partial resolution. /[place] DICTATED BY: JOSAFAT DALY MD DATE: 05/01/252324 ELECTRONICALLY SIGNED BY: JOSAFAT DALY MD DATE: 05/01/252324 PATIENT: MARTY BARRON MR#: [id number] : 1990 SEX: M AGE: 35 LOCATION: 2DH ORDER 99 [facility]: [facility] REPORT#: [id number] SERVICE 0600 REASON: decreased ostomy output ORDERING PHYSICIAN: SAROJ MAGDALENO PROCEDURE: CXR1VW - CHEST 1VW EXAM: CHEST RADIOGRAPH, 1 VIEW Technique: Single frontal expiratory view of the chest. Clinical Information: Decreased ostomy output. Findings: Lungs and large airways: Mild patchy opacities are present in both upper lobes; a right paratracheal suprahilar opacity is again seen; no lobar collapse is identified. Pleura: No pleural effusion or pneumothorax is identified. Heart and mediastinum: Cardiomediastinal silhouette is within normal limits. Bones/joints: No acute osseous abnormality is identified. Impression: * Comparison: Compared with chest radiograph dated 04/28/2025 07:29 EDT, bilateral basilar consolidation with associated mild atelectasis has resolved; mild patchy opacities in both upper lobes and the right paratracheal suprahilar opacity are unchanged; no pleural effusion or pneumothorax is identified. * Mild bilateral upper-lobe opacities, stable???correlate clinically for resolving infection or inflammatory change. * Expiratory acquisition limits assessment of lung volumes and may accentuate vascular crowding. /[place] DICTATED BY: JOSAFAT DALY MD DATE: 05/01/25207 ELECTRONICALLY SIGNED BY: JOSAFAT DALY MD DATE: 05/01/25207 PATIENT: MARTY BARRON MR#: [id number] : 1990 SEX: M AGE: 35 LOCATION: 2DH ORDER 99 STATUS: ADM IN REPORT#: [id number] SERVICE 06 REASON: decreased ostomy output ORDERING PHYSICIAN: SAROJ MAGDALENO PROCEDURE: ABD 1VW - ABD 1VW ADDENDUM REPORT ADDENDUM: Results were shared by telephone at 06:34 am on 05-01-25 and acknowledged by Patients Nurse Mr.Jose Hanks /[place] EXAM: CR Abdomen, multiple views. CLINICAL HISTORY: Decreased ostomy output. COMPARISON: None provided. FINDINGS: Multiple dilated small bowel loops with multiple air-fluid levels. Large bowel loops are not dilated. Features of small bowel obstruction. Excreted contrast is identified within the urinary bladder. No free air is evident. No abnormal calcification. No aggressive appearing osseous lesion. IMPRESSION: Multiple dilated small bowel loops with multiple air-fluid levels. Large bowel loops are not dilated. The features concerning bowel obstruction or ileus. Recommend a barium follow-through study for further evaluation. /[place] DICTATED BY: ANTONIO STEINBERG Jr., MD DATE: 05/01/25636 ELECTRONICALLY SIGNED BY: DATE: EXAM: CR Abdomen, multiple views. CLINICAL HISTORY: Decreased ostomy output. COMPARISON: None provided. FINDINGS: Multiple dilated small bowel loops with multiple air-fluid levels. Large bowel loops are not dilated. Features of small bowel obstruction. Excreted contrast is identified within the urinary bladder. No free air is evident. No abnormal calcification. No aggressive appearing osseous lesion. IMPRESSION: Multiple dilated small bowel loops with multiple air-fluid levels. Large bowel loops are not dilated. The features concerning bowel obstruction or ileus. Recommend a barium follow-through study for further evaluation. /[place] DICTATED BY: ANTONIO STEINBERG Jr., MD DATE: 05/01/25622 ELECTRONICALLY SIGNED BY: ANTONIO STEINBERG Jr., MD DATE: 05/01/25622 PATIENT: MARTY BARRON MR#: [id number] : 1990 SEX: M AGE: 35 LOCATION: 2DH ORDER 9 STATUS: ADM IN [facility] REPORT#: [id number] SERVICE 030 REASON: Right arm PICC, concern for DVT, swelling, pain, and redness noted ORDERING PHYSICIAN: COOPER STUART PROPERTY MASTER PROCEDURE: VENOUS UNI - US VENOUS DOPPLER UNILATERAL ADDENDUM REPORT ADDENDUM: Results were shared by telephone at 14:06 pm on 04-27-25 and acknowledged by Pt Nurse, Ms Georgiana Solomon /[place] EXAM: ULTRASOUND VENOUS DOPPLER, RIGHT UPPER EXTREMITY Technique: Duplex ultrasound with grayscale imaging, compression maneuvers, color Doppler, and spectral Doppler sampling of the right upper extremity veins. Clinical Information: Right arm peripherally inserted central catheter; swelling, pain, and redness; concern for deep venous thrombosis. Findings: Right axillary vein: Noncompressible with intraluminal echogenic thrombus and absent color Doppler filling, consistent with thrombosis. Right brachial veins: Thrombus present consistent with deep venous thrombosis. Right cephalic vein: Partial (non-occlusive) thrombosis. PICC: Indwelling right upper extremity peripherally inserted central catheter present; catheter-associated thrombosis suspected based on thrombus distribution. Tip location not assessed on this examination. Additional comments: No other specific venous segment findings were provided for review. Impression: * Right upper extremity catheter-associated deep venous thrombosis involving the axillary vein and brachial veins. * Non-occlusive thrombosis of the right cephalic vein (superficial venous thrombosis). * Correlate clinically for pulmonary embolism risk; management typically includes anticoagulation per institutional protocol and assessment of need for PICC removal or exchange depending on clinical requirements. /[place] DICTATED BY: ANTONIO STEINBERG Jr., MD DATE: 04/27/25 1410 ELECTRONICALLY SIGNED BY: DATE: EXAM: ULTRASOUND VENOUS DOPPLER, RIGHT UPPER EXTREMITY Technique: Duplex ultrasound with grayscale imaging, compression maneuvers, color Doppler, and spectral Doppler sampling of the right upper extremity veins. Clinical Information: Right arm peripherally inserted central catheter; swelling, pain, and redness; concern for deep venous thrombosis. Findings: Right axillary vein: Noncompressible with intraluminal echogenic thrombus and absent color Doppler filling, consistent with thrombosis. Right brachial veins: Thrombus present consistent with deep venous thrombosis. Right cephalic vein: Partial (non-occlusive) thrombosis. PICC: Indwelling right upper extremity peripherally inserted central catheter present; catheter-associated thrombosis suspected based on thrombus distribution. Tip location not assessed on this examination. Additional comments: No other specific venous segment findings were provided for review. Impression: * Right upper extremity catheter-associated deep venous thrombosis involving the axillary vein and brachial veins. * Non-occlusive thrombosis of the right cephalic vein (superficial venous thrombosis). * Correlate clinically for pulmonary embolism risk; management typically includes anticoagulation per institutional protocol and assessment of need for PICC removal or exchange depending on clinical requirements. /[place] DICTATED BY: ANTONIO STEINBERG Jr., MD DATE: 04/27/25 135 ELECTRONICALLY SIGNED BY: ANTONIO STEINBERG Jr., MD DATE: 04/27/25 135 PATIENT: MARTY BARRON MR#: [id number] : 1990 SEX: M AGE: 35 LOCATION: [facility] ORDER 1441 STATUS: ADM IN REPORT#: [id number] SERVICE 0000 REASON: rule out endocarditis ORDERING PHYSICIAN: SAROJ MAGDALENO PROCEDURE: ECHO CMP - ECHO 2-D COMPLETE APPROVED REPORT EXAM: Two-dimensional and M-mode echocardiogram with Doppler and color Doppler. INDICATION ICD: Rule out endocarditis, rule out clot or pulmonary embolism 2D Dimensions RVDd 3.6 cm LVEF(%) 56.6 (>50%) LVED Vol(simp.) 103.0 mL IVSd 0.9 (0.7-1.1cm) FS(%) 30 % LVES Vol(simp.) 45.0 mL LVDd 4.8 (3.8-5.6cm) LA (2D) 3.3 (1.6-4.0cm) LVEF(%, simp.) 56 % PWd 1.1 (0.7-1.1cm) Ao Root(2D) 3.4 (2.0-3.7cm) LA ESV INDEX (BP) 17.03 mL/m2 IVSs 1.0 cm LVOT diam 2.6 (1.8-2.4cm) LVDs 3.4 (2.5-4.0cm) IVC diam 1.1 cm PWs 1.0 cm Deformation Strain Apical 4 -14.1 % Apical 2 -15.4 % Apical 3 -13.0 % Global Strain -14.2 % M-Mode Dimensions EPSS 0.6 cm LA (MM) 3.8 (1.6-4.0cm) Ao Root(MM) 3.8 (2.0-3.7cm) Aortic Valve AoV Vmax 1.5 m/s Ao Peak GR 9.3 mmHg LVOT Vmax 1.3 m/s AoV VTI 0.2 m Ao Mean GR 5.5 mmHg LVOT VTI 0.18 m AARON (VMAX) 4.54 cm2 AARON (VTI) 4.4 cm2 Mitral Valve MV E Vmax 70.7 cm/s DECEL Time 158 ms MV A Vmax 67.4 cm/s P 1/2 T 46 ms E/A ratio 1.0 MVA (PHT) 4.7 cm2 TDI E/E' Medial 6.3 E/E' Lateral 6.1 Medial E' Peak V 11.25 cm/s Lateral E' Peak V 11.56 cm/s Pulmonary Valve PV Vmax 1.6 m/s PV VTI 0.19 m PV Mean GR 5.0 mmHg PV Peak GR 10.4 mmHg Tricuspid Valve TR Vmax 3.6 m/s RAP (EST) 3 mmHg RVSP 64.1 mmHg TR Peak GR 61.1 mmHg Left Ventricle The left ventricle is normal size. GLS -14.0% There is normal left ventricular wall thickness. LVEF is 50-55%. No left ventricle thrombus noted on this study. The left ventricular diastolic function is normal. Right Ventricle The right ventricle is normal size. The right ventricular systolic function is normal. Atria The left atrium size is normal. There is no mass or thrombus suspected in the left atrium. The right atrium size is normal. There is no mass or thrombus suspected in the right atrium. Aortic Valve The aortic valve is trileafelt normal in structure. No aortic regurgitation is present. No aortic valvular vegetation noted. There is no aortic valvular stenosis. Mitral Valve The mitral valve is normal in structure. There is no mitral valve regurgitation noted. There are no mitral valve vegetation noted. There is no mitral valve st enosis. Tricuspid Valve The tricuspid valve is normal in structure. There is mild tricuspid valve regurgitation noted by color Doppler. RVSP 61mmHg. There is no tricuspid valve vegetation. Pulmonic Valve The pulmonary valve is not well visualized. There is no pulmonic valvular regurgitation. Great Vessels The aortic root is normal in size. The IVC is normal in size and collapses >50% with inspiration. Pericardium There is no pericardial effusion. Other Information Quality : Technically difficult study due to body habitus Rhythm : NSR Conclusion LVEF is 50-55%. No left ventricle thrombus noted on this study. No intracardiac masses No valvular vegetations DICTATED BY: ZELDA MARTINEZ DO DATE: 04/23/25 0933 ELECTRONICALLY SIGNED BY: ZELDA MARTINEZ DO DATE: 04/23/25 5175 PATIENT: MARTY BARRON MR#: [id number] : 1990 SEX: M AGE: 35 LOCATION: [facility] ORDER [id number] STATUS: ADM IN REPORT#: [id number] SERVICE 0600 REASON: multiple lung nodules suggestive of mets. recntly diagnosed adenoca colon. ORDERING PHYSICIAN: KRISTIAN MORTON MD PROCEDURE: BXLUNG - CT BX LUNG/MEDIASTINUM NDL IR PERCUTANEOUS CT-GUIDED BIOPSY OF left anterior rib mass: CLINICAL HISTORY: This is a 35 [id number] Male with multiple lesion seen in the lungs there is an expansile mass seen in the left anterior rib for CT-guided biopsy of left anterior rib mass. The risk and benefit was explained to the patient. The risks include infection and possible bleed. The patient consented to the procedure. PROCEDURE: Patient was placed in supine position. Patient was given IV conscious sedation with 2 mg of Versed and 50 MCG of fentanyl.. Under CT guidance left anterior rib lesion was localized. After sterile prep and drapa, using 1% xylocaine for local anesthetic, using a 18-gauge Bard gun, a total of 3 core biopsies were obtained. The specimen was sent for histology and cell block. The patient tolerated the procedure and post-biopsy demonstrated no bleed. There is no evidence of any pneumothorax. IMPRESSION: PERCUTANEOUS CT-GUIDED BIOPSY OF left anterior rib WITH SPECIMENS SENT FOR Histology and cell block.. THE PATIENT TOLERATED PROCEDURE WELL. PATHOLOGY REPORT IS PENDING. If this path report does not demonstrate malignancy I would recommend lung biopsy DICTATED BY: LEXIE NG MD DATE: 04/26/25 1111 ELECTRONICALLY SIGNED BY: LXEIE NG MD DATE: 04/26/25 1116 PATIENT: MARTY BARRON MR#: [id number] : 1990 SEX: M AGE: 35 LOCATION: [facility] ORDER [id number] STATUS: ADM IN REPORT#: [id number] SERVICE 1056 REASON: RLQ PAIN ORDERING PHYSICIAN: TITA PETERSON MD PROCEDURE: ABD PEL WO - CT ABDOMEN/PELVIS W/O CONTRAST ADDENDUM REPORT ADDENDUM: Results were shared by telephone at 1:37 pm on 04-22-[address] David Mary /[facility] EXAM: CT Abdomen and Pelvis Without IV contrast CLINICAL HISTORY: RLQ PAIN TECHNIQUE: Axial computed tomography images of the abdomen and pelvis without intravenous contrast. CONTRAST: No IV contrast. COMPARISON: None provided. FINDINGS: LUNG BASES: Multiple randomly distributed nodules in both lungs, the largest measuring 2.1 x 1.6 cm in the medial basal segment of the right lower lobe. Patchy areas of consolidation in bilateral lower lobes. Ill-defined lytic-sclerotic lesion in the left anterior aspect of the 6th rib. Dependent airway disease along bilateral lower lobes, presumed to represent basal atelectasis. LIVER: Hepatic steatosis. GALLBLADDER AND BILE DUCTS: Post cholecystectomy status. No biliary ductal dilatation is evident. PANCREAS: Unremarkable. SPLEEN: Unremarkable. ADRENAL GLANDS: Bilateral adrenal glands appear diffusely bulky, predominantly on the left side, likely adrenal gland hyperplasia. KIDNEYS, URETERS, AND BLADDER: The kidneys appear within normal limits. There is no hydronephrosis or hydroureter. No urinary calculi are seen. STOMACH AND BOWEL: There is a defect of size 5.6 cm in the left anterior abdominal wall with herniation of the descending colon and small bowel loop. There is dilatation of the herniated bowel loop up to 4.1 cm, consistent with obstruction. Thickened and irregular appearing loop of small bowel in the mid pelvis. Ischemia is not excluded. A contrast-enhanced CT is recommended. PERITONEUM: Trace-free fluid. No free air. LYMPH NODES: No lymphadenopathy is evident. REPRODUCTIVE: Unremarkable as visualized. VASCULATURE: No evidence of abdominal aortic aneurysm. BONES: Lytic lesion in the L4 vertebral body. IMPRESSION: 1. Thickened and irregular appearing loop of small bowel in the mid pelvis. Ischemia is not excluded. A contrast-enhanced CT is recommended. 2. Left anterior abdominal wall hernia with herniation of descending colon and small bowel, with bowel obstruction up to 4.1 cm. 3. Lytic lesion in L4 vertebral body. Left anterior 6th rib lytic-sclerotic lesion. 4. Multiple pulmonary nodules, the largest 2.1 cm in the right lower lobe -suspicious for metastasis. 5. Bilateral adrenal gland hyperplasia, more prominent on the left. Suggest PET-CT for further evaluation. /[facility] DICTATED BY: LYNDSEY ENRIQUE MD DATE: 04/22/251338 ELECTRONICALLY SIGNED BY: DATE: EXAM: CT Abdomen and Pelvis Without IV contrast CLINICAL HISTORY: RLQ PAIN TECHNIQUE: Axial computed tomography images of the abdomen and pelvis without intravenous contrast. CONTRAST: No IV contrast. COMPARISON: None provided. FINDINGS: LUNG BASES: Multiple randomly distributed nodules in both lungs, the largest measuring 2.1 x 1.6 cm in the medial basal segment of the right lower lobe. Patchy areas of consolidation in bilateral lower lobes. Ill-defined lytic-sclerotic lesion in the left anterior aspect of the 6th rib. Dependent airway disease along bilateral lower lobes, presumed to represent basal atelectasis. LIVER: Hepatic steatosis. GALLBLADDER AND BILE DUCTS: Post cholecystectomy status. No biliary ductal dilatation is evident. PANCREAS: Unremarkable. SPLEEN: Unremarkable. ADRENAL GLANDS: Bilateral adrenal glands appear diffusely bulky, predominantly on the left side, likely adrenal gland hyperplasia. KIDNEYS, URETERS, AND BLADDER: The kidneys appear within normal limits. There is no hydronephrosis or hydroureter. No urinary calculi are seen. STOMACH AND BOWEL: There is a defect of size 5.6 cm in the left anterior abdominal wall with herniation of the descending colon and small bowel loop. There is dilatation of the herniated bowel loop up to 4.1 cm, consistent with obstruction. Thickened and irregular appearing loop of small bowel in the mid pelvis. Ischemia is not excluded. A contrast-enhanced CT is recommended. PERITONEUM: Trace-free fluid. No free air. LYMPH NODES: No lymphadenopathy is evident. REPRODUCTIVE: Unremarkable as visualized. VASCULATURE: No evidence of abdominal aortic aneurysm. BONES: Lytic lesion in the L4 vertebral body. IMPRESSION: 1. Thickened and irregular appearing loop of small bowel in the mid pelvis. Ischemia is not excluded. A contrast-enhanced CT is recommended. 2. Left anterior abdominal wall hernia with herniation of descending colon and small bowel, with bowel obstruction up to 4.1 cm. 3. Lytic lesion in L4 vertebral body. Left anterior 6th rib lytic-sclerotic lesion. 4. Multiple pulmonary nodules, the largest 2.1 cm in the right lower lobe -suspicious for metastasis. 5. Bilateral adrenal gland hyperplasia, more prominent on the left. Suggest PET-CT for further evaluation. /[facility] DICTATED BY: LYNDSEY ENRIQUE MD DATE: 04/22/251332 ELECTRONICALLY SIGNED BY: LYNDSEY ENRIQUE MD DATE: 04/22/251332 ASSESSMENT: Acute on chronic renal failure Hyponatremia Severe sepsis with MODS, resolved Leukocytosis Gram-positive cocci bacteremia Status post left rib biopsy by IR on 04/26/2025 New right upper lobe spiculated infiltrative mass measuring 5.4 x 4.6 cm infiltrating mediastinal pleura and albumin in the right main pulmonary artery Bulky mediastinal lymphadenopathy with the largest node measuring 4 cm involving the right paratracheal, prevascular, and subcarinal stations Multiple bilateral spiculated pulmonary nodules consistent with metastatic disease progression Bilateral marked diffuse adrenal enlargement likely metastatic or hyperplastic Left iliac fossa 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 Right upper extremity DVT involving the axillary and brachial veins Small-bowel obstruction Stage IV colorectal cancer with metastatic disease to the lung, pathology consistent with moderately differentiated adenocarcinoma, POA PLAN: Labs, diagnostic, radiologic exams reviewed and interpreted by myself and supervising physician. We have reviewed external records in detail Order UA, urine electrolytes, urine creatinine osmolality. Continue with close monitor renal function electrolytes, if renal function worsens recommend discontinue vancomycin, use alternative antibiotic if possible. BiPAP as necessary, for respiratory distress Monitor blood pressure adjust medication doses as needed Avoid hypotensive episodes May use Dilaudid 0.5 mg IV every 6 hours as needed for severe pain Strict intake, output, TSH, uric acid and daily weight should be monitored Please renally adjust medications Avoid nephrotoxic and nonsteroidal drugs Avoid contrast if possible Will continue to monitor renal function, anemia, electrolytes Treatment plan discussed with patient Questions were answered We have discussed with the other team physicians in detail about the care plan We will continue to monitor the patient closely ATTESTATION BY PHYSICIAN I have seen and examined the patient. I reviewed the documentation, medical decision making, and treatment plan as noted by the mid-level provider above. I agree with the findings and plan of care. ANAYA CHENEY MD, [facility] May 06, 2025 13:01
--- NOTE | 2025-05-06 14:05 | NUR ---
PTT 119.1. WILL HOLD HEPARIN X1 HR AND DECREASE BY 2 U/KG/HR. WILL REPEAT PTT IN 1 HR
--- NOTE | 2025-05-06 15:00 | PN ---
[facility] PROGRESS NOTE Date Patient Seen: May 06, 2025 Time of Visit: 15:00 Supervising Physician: Dr. Karel Parada Inpatient Consults: Dr. Nguyen, Dr. Abad, Dr. Henry, Dr. Johnson PROBLEM LIST: Severe sepsis with MODS, resolving Leukocytosis Staphylococcus epidermidis bacteremia, which is a contaminant. Status post left rib biopsy by IR on 04/26/2025 New right upper lobe spiculated infiltrative mass measuring 5.4 x 4.6 cm infiltrating mediastinal pleura and albumin in the right main pulmonary artery Bulky mediastinal lymphadenopathy with the largest node measuring 4 cm involving the right paratracheal, prevascular, and subcarinal stations Multiple bilateral spiculated pulmonary nodules consistent with metastatic disease progression (+) adenocarcinoma Stage IV Colorectal cancer with metastatic disease to the lung Bilateral marked diffuse adrenal enlargement likely metastatic or hyperplastic Left iliac fossa 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 deep venous thrombosis involving the right axillary vein and brachial veins INTERVAL HISTORY: 05/01 - Patient seen and examined, all labs and imaging have been reviewed, patient is awake alert and oriented, nursing reports no acute events overnight. Patient is afebrile, vital signs are stable, good sats on nasal cannula 2 L Patient continues on the cefepime, vanc and Flagyl, the last blood cultures positive for from the blood, staph on 04/21 Sputum is pending He continues on duo nebs He is on Lasix 20 mg and we have 520 of urine out in 12 hours Chest x-ray is pending 05/02 - Patient is seen and examined at the bedside. Pt is laying in bed resting quietly accompanied by his mom and other family members. Patient appears to be weak, deconditioned, and hypoxemic requiring 2 L via N/C. Patient continues utilizing Bipap nightly. Pt reports he uses a Cpap at home nightly. Patient continues on multiple broad spectrum antibiotics which are being managed by Dr Nguyen. Most recent cxray shows resolving left upper lung infiltrate. White count slowly trending down. Biopsy results are still pending. Patient continues on heparin drip for DVT. PT was evaluated by Dr Johnson and depending on Lung nodule biopsy results, will plan for genetic phenotyping for targeted therapy if feasible. Pt had a KUB performed which shows partial small bowel obstruction. As per nursing, surgery team has been made aware. Will continue to follow closely. 05/03 - Patient was seen and examined, patient is sitting at the side of the bed. Patient is just back from his small bowel pass through. He states that he has had numerous loose stools and is passing gas. He is hoping to resume his diet shortly. We are waiting on surgery's recommendations Patient is awake alert and oriented reporting no pain or discomfort Good saturations on room air His vital signs are stable We ordered new cultures he continues on Merrem fluconazole and vancomycin 05/04 - patient is seen in the evaluated at the bedside. Patient is sitting up in bed accompanied by his mom. Patient appears to be weak, deconditioned and hypoxemic currently requiring2 L via nasal cannula. Patient continues using a CPAP nightly. Patient remains NPO as suspected small bowel obstruction. Patient had a small bowel series and currently pending official results. Patient does report continues with large watery stools. Patient reports he is hungry in hope to resume his diet soon. Follow surgery recommendations. As per Dr. Johnson's note, patient has stage IV colorectal cancer with metastatic disease to the lungs. Pathology is consistent with moderately differentiated adenocarcinoma. Patient is advised on the importance of getting up out of bed and attempting to work with physical therapy as tolerated. Prognosis remains guarded. Patient continues on broad-spectrum antibiotics per Infectious Disease. White count trending down. 05/05 - patient is seen sitting up in bed continues to be weak, deconditioned hypoxemic requiring 2 L via nasal cannula. Patient continues utilizing his CPAP nightly. No acute changes reported overnight. Patient's small-bowel series shows resolving Gastrografin small-bowel follow-through with24 hour Gastrografin has rates sigmoid colon and transverse colon. Patient has been started on clear liquid diet and instructed to advance as tolerated per surgical team. Patient continues on heparin drip for right upper extremity DVT. Patient continues on multiple broad-spectrum antibiotics as per Infectious Disease. Patient is being followed closely by Oncology. Patient advised to get out of bed and work with physical therapy as tolerated. 05/06-seen and examined the patient while resting in bed with the head of the bed elevated patient has limited mobility, awake alert and oriented in no acute distress with family members present. Reviewed and discussed with family members the patient's assessment condition patient is not short of breath, is not presenting in acute hypoxic respiratory failure, and denies shortness of breath, fever, chills, nauseousness, constipation, and diarrhea currently. Hemodynamically stable. Afebrile a.m. labs have been ordered. Reviewed and discussed with family members diagnostic tests results, vital signs, and laboratory results. PLAN Supplemental oxygen as needed Wean off as tolerated Continue CPAP nightly and p.r.n. Patient is started on clear liquid diet Follow surgical team recs Continue antibiotics as per Infectious Disease Follow up Dr. Johnson recommendations REVIEW OF SYSTEMS: 12 point ROS reviewed with patient. Pertinent positives mentioned above. Otherwise negative. PHYSICAL EXAM: GENERAL: alert, obese, weak, awake oriented x 3 HEENT: EOMI, Sclera non icteric, moist mucosa NC NECK: Supple, no JVD, trachea midline LUNGS: Diminished breath sounds bilaterally. No wheezes HEART: Normal rate and rhythm. Normal S1 and S2, without murmurs ABD: morbidly obese Abdomen soft, nontender. Bowel sounds hypoactive EXT: No clubbing cyanosis or edema NEURO: Alert and oriented to person, follows commands Vital Signs (last 8hr) Date Time Temp Pulse Resp B/P (MAP) Pulse Ox O2 Delivery O2 Flow Rate FiO2 05/06/25 10:11 97 Nasal Cannula* 2 28 05/06/25 08:00 97.5 63 17 134/79 97 Nasal Cannula 2.0 LABS: Hematology Labs: Test 05/06/25 06:36 Range/Units White Blood Count 17.1 H 4.8-10.8 K/uL Red Blood Count 4.41 L 4.50-6.20 MIL/uL Hemoglobin 10.7 L 14.0-18.0 g/dL Hematocrit 34.2 L 42-54 % Mean Corpuscular Volume 77.6 L 79-99 fL Mean Corpuscular Hemoglobin 24.3 L 27.0-33.0 pg Mean Corpuscular Hemoglobin Concent 31.3 L 32.0-36.0 g/dL Red Cell Distribution Width 21.7 H 11.0-15.5 % Platelet Count 340 130-400 K/uL Mean Platelet Volume 10.9 H 7.5-10.5 fL Segmented Neutrophils % 84 H 40-70 % Band Neutrophils % 2 0-2 % Lymphocytes % (Manual) 6 L 22-44 % Monocytes % (Manual) 6 2-9 % Nucleated Red Blood Cells 0.0 0.0-0.19 % Differential Comment MANUAL DIFFERENTIAL Reactive Lymphocytes 2 H 0-0 % White Cell Morphology Comment TOXIC GRANULATION 2+ Platelet Morphology Comment ADEQUATE Red Blood Cell Morphology See comments Chemistry Labs: Test 05/06/25 11:57 05/06/25 06:36 05/05/25 19:21 Range/Units Whole Blood Glucose 135 H 70-110 MG/DL Sodium Level 129 L 136-145 mmol/L Potassium Level 4.6 3.5-5.1 mmol/L Chloride Level 96 L 101-111 mmol/L Carbon Dioxide Level 28 21-32 mmol/L Blood Urea Nitrogen 32 H 7-18 mg/dL Creatinine 0.7 0.5-1.3 mg/dL Glomerular Filtration Rate Calc 123 >90 mL/min Random Glucose 156 H 70-105 mg/dL Total Calcium 8.5 8.5-10.1 mg/dL Phosphorus Level 4.3 2.5-4.9 mg/dL Magnesium Level 2.30 1.80-2.40 mg/dL Total Bilirubin 0.8 0.2-1.0 mg/dL Aspartate Amino Transf (AST/SGOT) 86 H 10-37 U/L Alanine Aminotransferase (ALT/SGPT) 88 H 12-78 U/L Alkaline Phosphatase 207 H 50-136 U/L Total Protein 7.3 6.0-8.3 g/dL Albumin 2.3 L 3.5-5.0 g/dL Bedside Glucose Comment Notified Nurse Coagulation Labs: Test 05/06/25 13:25 Range/Units Activated Partial Thromboplast Time 119.1 #*H 26.3-35.5 SEC DIAGNOSTICS / RADIOLOGY RESULTS: [ ] PLAN NEURO: Minimize central acting medications as possible. Maintain fall precautions, adequate lighting during the day PULMONARY: Supplemental 02 as needed. Maintain aspiration precautions at all times CARDIOVASCULAR: Follow hemodynamics. Vital signs per facility protocol GI & NUTRITION: Continue with nutritional support. Continue stool softeners and laxatives as needed. KIDNEYS & ELECTROLYTES: Strict monitoring of intake, output and overall fluid balance. Avoid nephrotoxic medications to the extent possible. Medications to be dosed according to renal function. Monitor electrolytes and replace as needed ENDOCRINE: Maintain blood glucose between 100-180 at all times. Hypoglycemia protocol in place INFECTIOUS DISEASE: Trend temperature, WBC and procalcitonin level Follow cultures, deescalate antibiotics as soon as possible. Panculture if new onset fever ONCOLOGY/HEMATOLOGY/COAGULATION: Monitor for s/s of bleeding Monitor hemoglobin, coagulation studies as needed SKIN: Pressure ulcer prevention per facility protocol Specialty mattress ORTHO/REHAB: Continue PT/OT Prophylaxis: Continue GI and DVT prophylaxis Code Status: Full Resuscitation Disposition: Per primary team LEV ARCHER AGACNP May 06, 2025 15:00
[2025-05-06] MEDS: BENZOCAINE/MENTH/CETYLPYRD CL 1 EACH LOZENGE MM PRN (17:19)
[2025-05-06 17:59] LABS: APPEARANCE,URINE CLEAR (CLEAR); GLUCOSE, URINE (UA) NEGATIVE (NEGATIVE); LEUKOCYTE ESTERASE ,URINE NEGATIVE Leu/uL (NEGATIVE); NITRATE,URINE NEGATIVE (NEGATIVE); OCCULT BLOOD,URINE NEGATIVE (NEGATIVE)
[2025-05-06 18:00] LABS: ADD UA MICROSCOPIC YES; CREATININE,URINE RANDOM 63.32 mg/dL (30-135)
[2025-05-06 18:03] LABS: SQUAMOUS EPITHELIAL CELL,UR RARE /HPF (0-2)
--- NOTE | 2025-05-06 20:24 | PN ---
INFECTIOUS DISEASE PROGRESS NOTE Date of Service: May 06, 2025 SUBJECTIVE: This is a 35-year-old male patient who was seen and examined at bedside in room 319. Patient is awake, alert and oriented x3. During visit today patient has been assisted on the edge of the bed by physical therapist. Patient continues very debilitated and remains on oxygen via nasal cannula at 2 L/min. No fever, temperature is 97.5. The WBC still high at 17.1. The dexamethasone was discontinued today. Continues on Meropenem, fluconazole, and vancomycin per pharmacy protocol. Nursing reported a rectal bleeding episode last night. Patient currently continues on heparin drip for right upper extremities DVT. Hemoglobin however is stable at 10.7. We will continue to monitor patient. PHYSICAL EXAM EYES: Anicteric. Pupils equal and reactive. HENT: No oral thrush seen, moist Oral mucosa. NECK: Supple, no JVD or thyromegaly. LUNGS: Diminished. Oxygen via nasal cannula. CARDIOVASCULAR: S1, S2 regular. No murmur heard. ABDOMEN: Abdomen is large but Soft, bowel sounds present. Left colostomy. CENTRAL NERVOUS SYSTEM: Awake, alert, oriented x 3. SKIN: No rashes, no swelling. LYMPHATICS: No peripheral lymphadenopathy. MUSCULOSKELETAL: Right knee pain. EXTREMITIES: No cyanosis or clubbing. Generalized weakness. BACK: No deformity, no pressure ulcer. GENITOURINARY: No dysuria or hematuria. Vital Sign (Last 12 Hours) 05/06/25 05/06/25 05/06/25 05/06/25 10:11 12:00 16:00 18:29 Temp 97.9 97.9 Pulse 72 82 77 Resp 19 20 19 B/P (MAP) 143/84 129/79 Pulse Ox 97 97 97 O2 Delivery Nasal Cannula* Nasal Cannula Nasal Cannula N/Cannula Low lpm O2 Flow Rate 2 2.0 2.0 2.0 FiO2 28 28 05/06/25 19:47 Temp 97.5 Pulse 95 Resp 17 B/P (MAP) 136/76 Pulse Ox 95 O2 Delivery Nasal Cannula O2 Flow Rate 2.0 Intake & Output (last 24hrs) 05/05/25 05/05/25 05/06/25 15:00 23:00 07:00 Intake Total 586.0 ml 1793.0 ml 825.0 ml Output Total 15 ml 300 ml 2000 ml Balance 571.0 ml 1493.0 ml -1175.0 ml LABS: Laboratory: Test 05/06/25 17:45 05/06/25 16:27 05/06/25 13:25 05/06/25 06:36 Range/Units Urine Color YELLOW YELLOW Urine Appearance CLEAR CLEAR Urine pH 6.5 5.0-8.0 Urine Specific [place] 1.024 1.001-1.031 Urine Protein 20 H NEGATIVE mg/dL Urine Glucose (UA) NEGATIVE NEGATIVE mg/dL Urine Ketones NEGATIVE NEGATIVE mg/dL Urine Occult Blood NEGATIVE NEGATIVE Urine Nitrate NEGATIVE NEGATIVE Urine Bilirubin NEGATIVE NEGATIVE mg/dL Urine Urobilinogen 0.2 0.2-1.0 mg/dL Urine Leukocyte Esterase NEGATIVE NEGATIVE Kelly/uL Urine RBC 0-1 0-1 /HPF Urine WBC 0-1 0-1 /HPF Urine Squamous Epithelial Cells RARE 0-2 /HPF Urine Bacteria None None Seen /HPF Urine Random Creatinine 63.32 30-135 mg/dL Urine Random Sodium 87 40-220 mmol/l Urine Random Potassium 24 L 25-125 mmol/L Urine Random Chloride 35 L 110-250 mmol/L Whole Blood Glucose 126 H 70-110 MG/DL Activated Partial Thromboplast Time 119.1 #*H 26.3-35.5 SEC White Blood Count 17.1 H 4.8-10.8 K/uL Red Blood Count 4.41 L 4.50-6.20 MIL/uL Hemoglobin 10.7 L 14.0-18.0 g/dL Hematocrit 34.2 L 42-54 % Mean Corpuscular Volume 77.6 L 79-99 fL Mean Corpuscular Hemoglobin 24.3 L 27.0-33.0 pg Mean Corpuscular Hemoglobin Concent 31.3 L 32.0-36.0 g/dL Red Cell Distribution Width 21.7 H 11.0-15.5 % Platelet Count 340 130-400 K/uL Mean Platelet Volume 10.9 H 7.5-10.5 fL Segmented Neutrophils % 84 H 40-70 % Band Neutrophils % 2 0-2 % Lymphocytes % (Manual) 6 L 22-44 % Monocytes % (Manual) 6 2-9 % Nucleated Red Blood Cells 0.0 0.0-0.19 % Differential Comment MANUAL DIFFERENTIAL Reactive Lymphocytes 2 H 0-0 % White Cell Morphology Comment TOXIC GRANULATION 2+ Platelet Morphology Comment ADEQUATE Red Blood Cell Morphology See comments Sodium Level 129 L 136-145 mmol/L Potassium Level 4.6 3.5-5.1 mmol/L Chloride Level 96 L 101-111 mmol/L Carbon Dioxide Level 28 21-32 mmol/L Blood Urea Nitrogen 32 H 7-18 mg/dL Creatinine 0.7 0.5-1.3 mg/dL Glomerular Filtration Rate Calc 123 >90 mL/min Random Glucose 156 H 70-105 mg/dL Total Calcium 8.5 8.5-10.1 mg/dL Phosphorus Level 4.3 2.5-4.9 mg/dL Magnesium Level 2.30 1.80-2.40 mg/dL Total Bilirubin 0.8 0.2-1.0 mg/dL Aspartate Amino Transf (AST/SGOT) 86 H 10-37 U/L Alanine Aminotransferase (ALT/SGPT) 88 H 12-78 U/L Alkaline Phosphatase 207 H 50-136 U/L Total Protein 7.3 6.0-8.3 g/dL Albumin 2.3 L 3.5-5.0 g/dL Vancomycin Level Trough 9.2 L 10.0-20.0 UG/ML Test 05/05/25 19:21 Range/Units Bedside Glucose Comment Notified Nurse ASSESSMENT: Hypoxic respiratory failure, requiring oxygen support. Staphylococcus epidermidis bacteremia, which is a contaminant. Leukocytosis. Right knee osteoarthritis. Bilateral pulmonary nodules consistent with metastatic disease, s/p lung biopsy. Small-bowel obstruction, resolved. Acute renal failure, resolved. Morbid obesity. Recent Colorectal mass with resection and colostomy creation. Right upper extremity DVT. Debility. PLAN: Continue Meropenem. Continue fluconazole.. Continue vancomycin per pharmacy protocol. Continues on heparin drip. Continue oxygen support. Continue GI prophylaxis. Continue pain management. Monitor for bleeding. Continue physical therapy. Continue on Clinimix. This case was reviewed and discussed with my supervising physician Dr. Richards and the above assessment and plan was formulated and agreed upon. ATTESTATION BY PHYSICIAN I have seen and examined the patient. I reviewed the documentation, medical decision making, and treatment plan as noted by the mid-level provider above. I agree with the findings and plan of care. JULIANNA RICHARDS MD, [facility] May 06, 2025 20:24
--- NOTE | 2025-05-06 20:35 | NUR ---
MEDS SHIFT ASSESSMENT DONE, PLEASE REFER TO CHART. DUE MEDS ADMINISTERED, TOLERATED WELL. KEPT RESTED AND COMFORTABLE IN BED. CALL LIGHT WITHIN REACH. FAMILY AT BEDSIDE.
[2025-05-06] MEDS: CLINIMIX-E4.25%AA/D5+LYT2000ML 2,000 ML IV ONE (21:19)
--- NOTE | 2025-05-06 21:19 | NUR ---
DRIP LAB PTT RESULTS=76.1. ADJUSTMENTS DONE WITH HEPARIN DRIP, DECREASED BY 2 U/KG/HR PER PROTOCOL, CURRENT RATE NOW AT 13 UNITS/KG/HR. HUNG NEW CLINIMIX BAG WITH NEW TUBINGS AND RATE NOW AT 50CC/HR. [facility].
[2025-05-07] VITALS (11 sets, daily range): BP systolic 19–146; BP diastolic 62–84; PULSE 76–111; RESP 16–22; TEMP 97.8–98.5; O2SAT 91–97
--- NOTE | 2025-05-07 05:50 | NUR ---
MEDS PT ALREADY AWAKE. NO DISTRESS NOTED. NO CONCERNS VERBALIZED. CPAP MASKED REMOVED PT REQUESTED. DUE MEDS ADMINISTERED, TOLERATED WELL. KEPT COMFORTABLE IN BED. CALL LIGHT WITHIN EACH. FOR MORE CARE.
[2025-05-07 08:03] LABS: IMMATURE GRANULOCYTE ABSOLUTE 0.66 K/uL (0-1); NUCLEATED RED BLOOD CELLS 0.0 % (0.0-0.19); PLATELET COUNT (AUTO) 353 K/uL (130-400); RED BLOOD CELL COUNT(AUTO) 4.78 MIL/uL (4.50-6.20); RED CELL DISTRIBUTION WIDTH 22.7 % (11.0-15.5); WHITE BLOOD COUNT (AUTO) 18.2 K/uL (4.8-10.8)
[2025-05-07 08:25] LABS: ASPARTATE AMINOTRANSFERASE 93.0 U/L (10-37); CREATININE 0.7 mg/dL (0.5-1.3); GLOMERULAR FILTR. RATE CALC 123.0 mL/min (>90); GLUCOSE,RANDOM 115.0 mg/dL (70-105); PHOSPHORUS 4.3 mg/dL (2.5-4.9); SODIUM SERUM 128.0 mmol/L (136-145); TOTAL PROTEIN, SERUM 7.0 g/dL (6.0-8.3); UREA NITROGEN, BLOOD 36.0 mg/dL (7-18)
--- NOTE | 2025-05-07 08:32 | NUR ---
PTT 61.2. NO CHANGES TO HEPARIN DRIP (13U/KG/HR). WILL REPEAT PTT @ 1430
--- NOTE | 2025-05-07 09:59 | PN ---
NEPHROLOGY PROGRESS NOTE Date/Time Patient Seen: May 07, 2025 SUBJECTIVE: This is a 35-year-old male with a past medical history of morbid obesity, colon mass S/p resection with colostomy. He presented to emergency room with complaints of right knee pain. He has had a prolonged hospital stay. He was initially admitted with the acute on chronic renal failure. He does have a history of metastatic disease. S/p lung biopsy consistent with adenocarcinoma, stage IV Colorectal cancer with metastatic disease to the lung The patient's renal function has remained fairly stable in the patient has been seen as a follow up visit for all the above. Renal function is stable Electrolytes show hyponatremia. He continues on antibiotics including vancomycin Continues on Lasix 20 mg IV q.12 hours and TPN He continues on heparin drip for DVT. Nurse reports pending Port-a-cath placement He was seen in the medical floor, in no acute distress Multiple family members at the bedside REVIEW OF SYSTEMS: GENERAL: Positive for generalized weakness NEUROLOGIC: Negative for any blurry vision, blind spots, double vision, facial asymmetry, dysphagia, dysarthria, hemiparesis, hemisensory deficits, vertigo, ataxia. HEENT: Negative for any head trauma, neck trauma, neck stiffness, photophobia, phonophobia, sinusitis, rhinitis. CARDIAC: Negative for any chest pain, dyspnea on exertion, paroxysmal nocturnal dyspnea, peripheral edema. PULMONARY: Negative for any shortness of breath, wheezing, COPD, or TB exposure. GASTROINTESTINAL: Negative for any abdominal pain, nausea, vomiting, bright red blood per rectum, melena. GENITOURINARY: Negative for any dysuria, hematuria, incontinence. INTEGUMENTARY: Negative for any rashes, cuts, insect bites. RHEUMATOLOGIC: Negative for any joint pains, photosensitive rashes, history of vasculitis or kidney problems. HEMATOLOGIC: Negative for any abnormal bruising, frequent infections or bleeding. Vital Signs (last 8hr) Date Time Temp Pulse Resp B/P (MAP) Pulse Ox O2 Delivery O2 Flow Rate FiO2 05/07/25 08:00 98.1 81 16 19/65 93 Room Air 05/07/25 06:57 81 19 N/A Room Air 21 05/07/25 04:06 98.4 81 20 146/79 97 Room Air PHYSICAL EXAM: GENERAL: Alert and oriented x 3. No acute distress. Well-nourished. EYES: EOMI. Anicteric. HENT: Moist mucous membranes. No scleral icterus. No cervical lymphadenopathy. LUNGS: Clear to auscultation bilaterally. No accessory muscle use. CARDIOVASCULAR: Regular rate and rhythm. No murmur. No JVD. ABDOMEN: Soft, non-tender and non-distended. No palpable masses. EXTREMITIES: No edema. Non-tender. SKIN: No rashes or lesions. Warm. NEUROLOGIC: No focal neurological deficits. CN II-XII grossly intact, but not individually tested. PSYCHIATRIC: Cooperative. Appropriate mood and affect. Current Medications Medications (Trade) Dose Ordered Sig/Checo Route PRN Reason Start Time Stop Time Status Last Admin Dose Admin Acetaminophen (TYLenol 325MG TAB) 650 mg Q6H PRN PO FEVER/pain 1-3 04/19/25 22:00 05/19/25 21:59 04/21/25 02:20 650 MG Benzonatate (Tessalon 100mg Caps) 100 mg Q8H PRN PO COUGH 05/03/25 11:00 06/02/25 10:59 05/03/25 11:32 100 MG Cefepime HCl (MAXipime 2 gm vial) 2 gm Q8H IVPB 04/22/25 13:00 04/30/25 13:07 DC 04/30/25 04:27 2 GM Cefepime HCl (MAXipime 2 gm vial) 2 gm Q8H IVPB 04/30/25 16:00 05/01/25 12:05 DC 05/01/25 00:34 2 GM Ceftriaxone Sodium (ROCEphine 1G INJ) 1 gm Q24H IVPB 04/20/25 10:00 04/22/25 12:41 DC 04/22/25 10:53 1 GM Dexamethasone Sodium Phosphate (dexaMETHasone 4MG/ML 1ML VIAL) 10 mg Q24H IV 05/01/25 17:00 05/02/25 09:13 DC 05/01/25 17:22 10 MG Dexamethasone Sodium Phosphate (dexaMETHasone 10MG/ML 1ML VIAL) 10 mg Q24H IV 05/02/25 17:00 05/31/25 16:59 05/02/25 16:57 10 MG Dextrose 1,000 ml @ 50 mls/hr Q20H IV 04/25/25 08:00 04/25/25 16:53 DC 04/25/25 10:38 100 MLS/HR Doxycycline Hyclate 250 ml @ 125 mls/hr Q12H IV 04/21/25 08:30 04/22/25 12:41 DC 04/22/25 08:14 125 MLS/HR Enoxaparin Sodium (Lovenox) 40 mg DAILY SQ 04/20/25 09:00 04/22/25 20:00 DC 04/22/25 08:14 40 MG Enoxaparin Sodium (Lovenox) 40 mg Q12H SQ 04/22/25 21:00 04/27/25 13:24 DC 04/27/25 08:10 40 MG Famotidine (Pepcid 20mg Vial) 20 mg BID IV 05/02/25 21:00 06/01/25 20:59 05/03/25 10:25 20 MG Famotidine (Pepcid 20mg Tab) 20 mg DAILY PO 04/20/25 09:00 05/02/25 12:03 DC 04/30/25 09:23 20 MG Fluconazole (DiFLUCan 100 mg TAB) 200 mg Q24H PO 05/01/25 12:30 05/02/25 12:03 DC Fluconazole/ Sodium Chloride (DiFLUCan 200 MG/ NS 100 ML) 200 mg Q24H IVPB 05/02/25 12:00 06/01/25 11:59 05/03/25 11:32 200 MG Furosemide (LASix 20MG VIAL) 20 mg Q12H IV 04/29/25 11:00 05/29/25 10:59 05/03/25 10:25 20 MG Furosemide (LASix 20MG VIAL) 20 mg Q8H IV 04/24/25 19:00 04/25/25 03:01 DC 04/25/25 03:06 20 MG Heparin Sodium (Porcine) (HEParin 5,000 UNIT VIAL) *calculation based on ACTUAL B... AD PRN IV HEPARIN PROTOCOL 04/27/25 14:00 05/27/25 13:59 Heparin Sodium/ Dextrose 250 ml @ 0 mls/hr Q6H IV 04/27/25 14:00 05/27/25 13:59 05/02/25 16:59 19.17 MLS/HR Hydralazine HCl (APRESOLine 20MG INJ) 5 mg Q6H PRN IV For:SBP above 160;DBP above 90 10/23/25 16:00 05/20/25 15:59 Hydralazine HCl (APRESOLine 20MG INJ) 10 mg Q6H PRN IV For:SBP above 160;DBP above 90 04/19/25 22:00 04/20/25 10:52 DC Hydromorphone HCl (DiLAUDid 0.5MG INJ) 0.5 mg Q4H PRN IVP SEVERE PAIN (7-10) 04/22/25 20:00 04/27/25 19:59 DC Ipratropium [place] (AtrovENT UD) 0.5 MG Q6H PRN IH SHORTNESS OF BREATH 04/28/25 19:30 05/28/25 19:29 04/29/25 11:10 0.5 MG Iron Sucrose (VenoFER) 200 mg DAILY IV 04/26/25 09:00 04/28/25 11:00 DC 04/28/25 09:20 200 MG Ketorolac Tromethamine (toRADol) 15 mg Q6H PRN IM MODERATE PAIN (4-6) 04/30/25 11:30 05/05/25 11:29 Ketorolac Tromethamine (toRADol) 15 mg Q6H PRN IV MODERATE PAIN (4-6) 04/20/25 11:00 04/22/25 19:58 DC 04/20/25 22:08 15 MG Labetalol HCl (TRANdate 20MG SYG) 10 mg Q6H PRN IV SUSTAINED HR >120 04/23/25 00:00 05/23/25 00:00 Lactated Ringer's 1,000 ml @ 50 mls/hr Q20H IV 04/21/25 12:30 04/25/25 07:47 DC 04/24/25 02:58 75 MLS/HR Lactated Ringer's 1,000 ml @ 100 mls/hr Q10H IV 04/19/25 22:00 04/20/25 10:52 DC 04/21/25 12:40 100 MLS/HR Lactulose (Constulose 20gm/ 30ml Udcup) 20 gm ACHS PRN PO CONSTIPATION 04/29/25 20:00 04/30/25 13:06 DC 04/30/25 09:33 20 GM Lactulose (Constulose 20gm/ 30ml Udcup) 20 gm BID PRN PO CONSTIPATION 04/19/25 22:00 04/29/25 19:41 DC Lactulose (Constulose 20gm/ 30ml Udcup) 20 gm Q6HWA PRN PO CONSTIPATION 04/30/25 13:00 05/30/25 12:59 Lidocaine (Lidocaine Patch 4%) 1 each DAILY TP 04/21/25 09:00 05/21/25 08:59 05/03/25 10:25 1 EACH Magnesium Sulfate 50 ml @ 0 mls/hr PROTOCOL IV 04/21/25 08:30 05/21/25 08:29 04/24/25 06:11 25 MLS/HR Meropenem (Merrem 1gm) 1 gm Q8H IVPB 05/01/25 12:30 05/02/25 12:29 DC 05/02/25 04:15 1 GM Metoclopramide HCl (regLAN 10MG IV) 10 mg Q6H6 IVP 05/01/25 18:00 05/31/25 17:59 05/03/25 11:32 10 MG Metronidazole/ Sodium Chloride 100 ml @ 100 mls/hr Q8H6 IVPB 04/22/25 14:00 05/02/25 13:59 DC 05/02/25 09:55 100 MLS/HR Morphine Sulfate (morPHINE 4MG SYG) 4 mg Q4H PRN IVP SEVERE PAIN (7-10) 04/19/25 22:00 04/20/25 10:52 DC Nystatin (NystOP 15 GM POWDER) 1 APPLICATION BID TP 04/26/25 14:00 05/26/25 13:59 05/03/25 10:25 1 APPL Ondansetron HCl (zoFRAN 4MG INJ) 4 mg Q6H PRN IV NAUSEA/VOMITING 04/19/25 22:00 05/19/25 21:59 04/24/25 22:19 4 MG Pharmacy Profile Note (Pharmacy Communication) 1 each ONCE MISC 05/01/25 12:30 05/01/25 12:11 DC Potassium Chloride 100 ml @ 100 mls/hr PROTOCOL PRN IV hypokalemia 05/01/25 21:00 05/31/25 20:59 05/01/25 22:29 100 MLS/HR Promethazine HCl (Phenergan) 12.5 mg Q8H5 PRN IM NAUSEA/VOMITING 04/22/25 12:30 05/22/25 12:29 04/22/25 12:25 12.5 MG Sodium Chloride 500 ml @ 0 mls/hr Q0M STAT IV 04/22/25 13:17 04/22/25 13:22 DC 04/22/25 14:39 600 MLS/HR Vancomycin HCl 250 ml @ 125 mls/hr Q24H IV 05/01/25 05:00 05/11/25 04:59 05/03/25 05:41 125 MLS/HR Vancomycin HCl 250 ml @ 125 mls/hr Q8H IV 04/29/25 21:00 04/30/25 14:25 DC 04/30/25 05:52 125 MLS/HR Vancomycin HCl (Vancomycin Protocol) 1 each AD IV 04/22/25 15:00 04/23/25 22:23 DC Vancomycin HCl (Vancomycin Protocol) 1 each AD IV 04/29/25 11:00 05/13/25 10:59 LABORATORY: [ ] Hematology Labs: Test 05/07/25 07:59 05/06/25 06:36 Range/Units White Blood Count 18.2 H 4.8-10.8 K/uL Red Blood Count 4.78 4.50-6.20 MIL/uL Hemoglobin 11.6 L 14.0-18.0 g/dL Hematocrit 37.2 L 42-54 % Mean Corpuscular Volume 77.8 L 79-99 fL Mean Corpuscular Hemoglobin 24.3 L 27.0-33.0 pg Mean Corpuscular Hemoglobin Concent 31.2 L 32.0-36.0 g/dL Red Cell Distribution Width 22.7 H 11.0-15.5 % Platelet Count 353 130-400 K/uL Mean Platelet Volume 10.1 7.5-10.5 fL Immature Granulocyte % (Auto) 3.6 H 0-1 % Neutrophils (%) (Auto) 73.4 40.0-77.0 % Lymphocytes (%) (Auto) 11.3 L 21.0-51.0 % Monocytes (%) (Auto) 11.1 3.0-13.0 % Eosinophils (%) (Auto) 0.2 0.0-8.0 % Basophils (%) (Auto) 0.4 0.0-5.0 % Neutrophils # (Auto) 13.4 H 1.8-7.7 K/uL Lymphocytes # (Auto) 2.1 1.0-4.8 K/uL Monocytes # (Auto) 2.0 H 0.1-1.0 K/uL Eosinophils # (Auto) 0.03 0.00-0.70 K/uL Basophils # (Auto) 0.07 0.00-0.20 K/uL Absolute Immature Granulocyte (auto 0.66 0-1 K/uL Nucleated Red Blood Cells 0.0 0.0-0.19 % Segmented Neutrophils % 84 H 40-70 % Band Neutrophils % 2 0-2 % Lymphocytes % (Manual) 6 L 22-44 % Monocytes % (Manual) 6 2-9 % Differential Comment MANUAL DIFFERENTIAL Reactive Lymphocytes 2 H 0-0 % White Cell Morphology Comment TOXIC GRANULATION 2+ Platelet Morphology Comment ADEQUATE Red Blood Cell Morphology See comments Chemistry Labs: Test 05/07/25 07:59 05/07/25 05:19 05/06/25 21:11 Range/Units Sodium Level 128 L 136-145 mmol/L Potassium Level 4.7 3.5-5.1 mmol/L Chloride Level 95 L 101-111 mmol/L Carbon Dioxide Level 30 21-32 mmol/L Blood Urea Nitrogen 36 H 7-18 mg/dL Creatinine 0.7 0.5-1.3 mg/dL Glomerular Filtration Rate Calc 123 >90 mL/min Random Glucose 115 H 70-105 mg/dL Uric Acid 4.4 2.6-7.2 mg/dL Total Calcium 8.5 8.5-10.1 mg/dL Phosphorus Level 4.3 2.5-4.9 mg/dL Magnesium Level 2.30 1.80-2.40 mg/dL Total Bilirubin 0.9 0.2-1.0 mg/dL Aspartate Amino Transf (AST/SGOT) 93 H 10-37 U/L Alanine Aminotransferase (ALT/SGPT) 106 H 12-78 U/L Alkaline Phosphatase 260 H 50-136 U/L Total Protein 7.0 6.0-8.3 g/dL Albumin 2.3 L 3.5-5.0 g/dL Thyroid Stimulating Hormone (TSH) 6.43 H 0.36-3.74 uIU/mL Whole Blood Glucose 123 H 70-110 MG/DL Bedside Glucose Comment Notified Nurse Coagulation Labs: Test 05/07/25 07:59 Range/Units Activated Partial Thromboplast Time 61.2 H 26.3-35.5 [facility] / RADIOLOGY: [facility] [address] [place] [address] IMAGING REPORT Signed PATIENT: MARTY BARRON MR#: [id number] : 1990 SEX: M AGE: 35 LOCATION: 3CH ORDER 1046 STATUS: ADM IN REPORT#: [id number] SERVICE 1045 REASON: RULE OUT BOWEL OBSTRUCTION OR ILIEUS ORDERING PHYSICIAN: TITA PETERSON MD PROCEDURE: SBFT - SM BOWEL SERIES SMALL BOWEL SERIES HISTORY: Status post colon resection with ostomy placement 2 months ago COMPARISON: None. TECHNIQUE: A small bowel series was performed with serial radiographs of the abdomen and pelvis obtained after oral administration of contrast. Patient was given 180 cc of Gastrografin. FINDINGS: WELT BUTTER HAND: No evidence for free air. No unusual calcifications detected. Small bowels are dilated air-filled suggesting of possible ileus. There are surgical clips in the right upper quadrant. After oral administration of 90 cc of Gastrografin, normal opacification of the stomach noted without evidence for malrotation. The duodenum, jejunum, and ileum appear normal in caliber. The mucosal pattern appears grossly normal, without evidence for obstruction or discrete filling defect. Transit time through the small bowel was approximately 24 hours with Gastrografin has reached large bowel and sigmoid colon. (normal is 1-4 hrs). The terminal ileum was spotted, and no strictures or masses detected. IMPRESSION: There is resolving Gastrografin small bowel follow-through with 24-hour the Gastrografin has reached sigmoid colon and transverse colon. DICTATED BY: LEXIE NG MD DATE: 05/04/251651 ELECTRONICALLY SIGNED BY: LEXIE NG MD DATE: 05/04/251657 PATIENT: MARTY BARRON MR#: [id number] : 1990 SEX: M AGE: 35 LOCATION: 3CH ORDER 2300 STATUS: ADM IN REPORT#: [id number] SERVICE 0600 REASON: decreased ostomy output ORDERING PHYSICIAN: SAROJ MAGDALENO PROCEDURE: CXR1VW - CHEST 1VW EXAM: CR Chest, 1 View. CLINICAL HISTORY: decreased ostomy output COMPARISON: 05/01/2025 FINDINGS: LUNGS: Persistent right paratracheal opacity. Right inhomogeneous airspace opacities in the mid and lower zones, stable. Mild pulmonary vascular congestion. PLEURAL SPACES: No evidence of pleural effusion or pneumothorax. MEDIASTINUM: The cardiomediastinal silhouette is within normal limits. BONES: No acute osseous abnormality. IMPRESSION: 1. Stable right paratracheal opacity and right mid and lower zone airspace opacities. 2. Mild pulmonary vascular congestion. /[place] DICTATED BY: LYNDSEY ENRIQUE MD DATE: 05/03/251719 ELECTRONICALLY SIGNED BY: LYNDSEY ENRIQUE MD DATE: 05/03/251719 PATIENT: MARTY BARRON MR#: [id number] : 1990 SEX: M AGE: 35 LOCATION: 2DH ORDER 1434 STATUS: ADM IN REPORT#: [id number] SERVICE 1433 REASON: RULE OUT OBSTRUCTION VS ILIEUS ORDERING PHYSICIAN: TITA PETERSON MD PROCEDURE: ABD 1VW - ABD 1VW EXAM: CR Abdomen, 4 View. CLINICAL HISTORY: RULE OUT OBSTRUCTION VS ILIEUS COMPARISON: Radiograph dated April 30, 2025 FINDINGS: Redemonstrated air-filled dilated loops of small bowel measuring up to 5.[address] imaging to exclude small bowel ileus versus a partial distal small bowel obstruction. IMPRESSION: 1. Dilated small bowel loops up to 5.0 cm, concerning for ileus or partial small bowel obstruction. CT imaging recommended for further evaluation. /[place] DICTATED BY: ANTONIO STEINBERG Jr., MD DATE: 05/01/251946 ELECTRONICALLY SIGNED BY: ANTONIO STEINBERG Jr., MD DATE: 05/01/251946 PATIENT: MARTY BARRON MR#: [id number] : 1990 SEX: M AGE: 35 LOCATION: 2DH ORDER 99 STATUS: ADM IN REPORT#: [id number] SERVICE 9 REASON: decreased ostomy output ORDERING PHYSICIAN: SAROJ MAGDALENOCNP PROCEDURE: CXR1VW - CHEST 1VW EXAM: CR Chest, 1 View. CLINICAL HISTORY: Decreased ostomy output. COMPARISON: CR ??? Chest 1 View dated 04/30/25, 08:56 EST. FINDINGS: LUNGS: Persistent right paratracheal opacity with inhomogeneous airspace infiltrates in the right lung. Inhomogeneous airspace infiltrates in the left upper lung appear decreased, suggesting interval resolution. No new pulmonary consolidation or mass. PLEURAL SPACES: No pleural effusion or pneumothorax. MEDIASTINUM: Cardiomediastinal silhouette within normal limits. BONES: No acute or aggressive osseous lesion. IMPRESSION: * Persistent right paratracheal opacity with inhomogeneous right lung infiltrates. * Interval resolving left upper lung infiltrates. * No pleural effusion or pneumothorax. Comparison: Compared with prior radiograph dated 04/30/25, right-sided opacities persist while left upper lung infiltrates show partial resolution. /[place] DICTATED BY: JOSAFAT DALY MD DATE: 05/01/252324 ELECTRONICALLY SIGNED BY: JOSAFAT DALY MD DATE: 05/01/252324 PATIENT: MARTY BARRON MR#: [id number] : 1990 SEX: M AGE: 35 LOCATION: 2DH ORDER 99 STATUS: [facility] RE[facility]#: [id number] SERVICE 9 REASON: decreased ostomy output ORDERING PHYSICIAN: SAROJ MAGDALENO PROCEDURE: CXR1VW - CHEST 1VW EXAM: CHEST RADIOGRAPH, 1 VIEW Technique: Single frontal expiratory view of the chest. Clinical Information: Decreased ostomy output. Findings: Lungs and large airways: Mild patchy opacities are present in both upper lobes; a right paratracheal suprahilar opacity is again seen; no lobar collapse is identified. Pleura: No pleural effusion or pneumothorax is identified. Heart and mediastinum: Cardiomediastinal silhouette is within normal limits. Bones/joints: No acute osseous abnormality is identified. Impression: * Comparison: Compared with chest radiograph dated 04/28/2025 07:29 EDT, bilateral basilar consolidation with associated mild atelectasis has resolved; mild patchy opacities in both upper lobes and the right paratracheal suprahilar opacity are unchanged; no pleural effusion or pneumothorax is identified. * Mild bilateral upper-lobe opacities, stable???correlate clinically for resolving infection or inflammatory change. * Expiratory acquisition limits assessment of lung volumes and may accentuate vascular crowding. /[place] DICTATED BY: JOSAFAT DALY MD DATE: 05/01/25207 ELECTRONICALLY SIGNED BY: JOSAFAT DALY MD DATE: 05/01/25207 PATIENT: MARTY BARRON MR#: [id number] : 1990 SEX: M AGE: 35 LOCATION: 2DH ORDER 99 STATUS: ADM IN REPORT#: [id number] SERVICE 06 REASON: decreased ostomy output ORDERING PHYSICIAN: SAORJ MAGDALENO PROCEDURE: ABD 1VW - ABD 1VW ADDENDUM REPORT ADDENDUM: Results were shared by telephone at 06:34 am on 05-01-25 and acknowledged by Patients Nurse Ezequiel Krauskatelyn /[place] EXAM: CR Abdomen, multiple views. CLINICAL HISTORY: Decreased ostomy output. COMPARISON: None provided. FINDINGS: Multiple dilated small bowel loops with multiple air-fluid levels. Large bowel loops are not dilated. Features of small bowel obstruction. Excreted contrast is identified within the urinary bladder. No free air is evident. No abnormal calcification. No aggressive appearing osseous lesion. IMPRESSION: Multiple dilated small bowel loops with multiple air-fluid levels. Large bowel loops are not dilated. The features concerning bowel obstruction or ileus. Recommend a barium follow-through study for further evaluation. /[place] DICTATED BY: ANTONIO STEINBERG Jr., MD DATE: 05/01/25636 ELECTRONICALLY SIGNED BY: DATE: EXAM: CR Abdomen, multiple views. CLINICAL HISTORY: Decreased ostomy output. COMPARISON: None provided. FINDINGS: Multiple dilated small bowel loops with multiple air-fluid levels. Large bowel loops are not dilated. Features of small bowel obstruction. Excreted contrast is identified within the urinary bladder. No free air is evident. No abnormal calcification. No aggressive appearing osseous lesion. IMPRESSION: Multiple dilated small bowel loops with multiple air-fluid levels. Large bowel loops are not dilated. The features concerning bowel obstruction or ileus. Recommend a barium follow-through study for further evaluation. /[place] DICTATED BY: ANTONIO STEINBERG Jr., MD DATE: 05/01/25622 ELECTRONICALLY SIGNED BY: ANTONIO STEINBERG Jr., MD DATE: 05/01/25622 PATIENT: MARTY BARRON MR#: [id number] : 1990 SEX: M AGE: 35 LOCATION: 2DH ORDER STATUS: ADM IN [facility] REPORT#: [id number] SERVICE 0307 REASON: Right arm PICC, concern for DVT, swelling, pain, and redness noted ORDERING PHYSICIAN: COOPER STUART FIRE RANGER PROCEDURE: VENOUS UNI - US VENOUS DOPPLER UNILATERAL ADDENDUM REPORT ADDENDUM: Results were shared by telephone at 14:06 pm on 04-27-25 and acknowledged by Pt Nurse, Ms Georgiana Solomon /[place] EXAM: ULTRASOUND VENOUS DOPPLER, RIGHT UPPER EXTREMITY Technique: Duplex ultrasound with grayscale imaging, compression maneuvers, color Doppler, and spectral Doppler sampling of the right upper extremity veins. Clinical Information: Right arm peripherally inserted central catheter; swelling, pain, and redness; concern for deep venous thrombosis. Findings: Right axillary vein: Noncompressible with intraluminal echogenic thrombus and absent color Doppler filling, consistent with thrombosis. Right brachial veins: Thrombus present consistent with deep venous thrombosis. Right cephalic vein: Partial (non-occlusive) thrombosis. PICC: Indwelling right upper extremity peripherally inserted central catheter present; catheter-associated thrombosis suspected based on thrombus distribution. Tip location not assessed on this examination. Additional comments: No other specific venous segment findings were provided for review. Impression: * Right upper extremity catheter-associated deep venous thrombosis involving the axillary vein and brachial veins. * Non-occlusive thrombosis of the right cephalic vein (superficial venous thrombosis). * Correlate clinically for pulmonary embolism risk; management typically includes anticoagulation per institutional protocol and assessment of need for PICC removal or exchange depending on clinical requirements. /[place] DICTATED BY: ANTONIO STEINBERG Jr., MD DATE: 04/27/25 1410 ELECTRONICALLY SIGNED BY: DATE: EXAM: ULTRASOUND VENOUS DOPPLER, RIGHT UPPER EXTREMITY Technique: Duplex ultrasound with grayscale imaging, compression maneuvers, color Doppler, and spectral Doppler sampling of the right upper extremity veins. Clinical Information: Right arm peripherally inserted central catheter; swelling, pain, and redness; concern for deep venous thrombosis. Findings: Right axillary vein: Noncompressible with intraluminal echogenic thrombus and absent color Doppler filling, consistent with thrombosis. Right brachial veins: Thrombus present consistent with deep venous thrombosis. Right cephalic vein: Partial (non-occlusive) thrombosis. PICC: Indwelling right upper extremity peripherally inserted central catheter present; catheter-associated thrombosis suspected based on thrombus distribution. Tip location not assessed on this examination. Additional comments: No other specific venous segment findings were provided for review. Impression: * Right upper extremity catheter-associated deep venous thrombosis involving the axillary vein and brachial veins. * Non-occlusive thrombosis of the right cephalic vein (superficial venous thrombosis). * Correlate clinically for pulmonary embolism risk; management typically includes anticoagulation per institutional protocol and assessment of need for PICC removal or exchange depending on clinical requirements. /[place] DICTATED BY: ANTONIO STEINBERG Jr., MD DATE: 04/27/251353 ELECTRONICALLY SIGNED BY: ANTONIO STEINBERG Jr., MD DATE: 04/27/251353 PATIENT: MARTY BARRON MR#: [id number] : 1990 SEX: M AGE: 35 LOCATION: [facility] ORDER 1441 STATUS: ADM IN REPORT#: [id number] SERVICE 0000 REASON: rule out endocarditis ORDERING PHYSICIAN: SAROJ MAGDALENO PROCEDURE: ECHO CMP - ECHO 2-D COMPLETE APPROVED REPORT EXAM: Two-dimensional and M-mode echocardiogram with Doppler and color Doppler. INDICATION ICD: Rule out endocarditis, rule out clot or pulmonary embolism 2D Dimensions RVDd 3.6 cm LVEF(%) 56.6 (>50%) LVED Vol(simp.) 103.0 mL IVSd 0.9 (0.7-1.1cm) FS(%) 30 % LVES Vol(simp.) 45.0 mL LVDd 4.8 (3.8-5.6cm) LA (2D) 3.3 (1.6-4.0cm) LVEF(%, simp.) 56 % PWd 1.1 (0.7-1.1cm) Ao Root(2D) 3.4 (2.0-3.7cm) LA ESV INDEX (BP) 17.03 mL/m2 IVSs 1.0 cm LVOT diam 2.6 (1.8-2.4cm) LVDs 3.4 (2.5-4.0cm) IVC diam 1.1 cm PWs 1.0 cm Deformation Strain Apical 4 -14.1 % Apical 2 -15.4 % Apical 3 -13.0 % Global Strain -14.2 % M-Mode Dimensions EPSS 0.6 cm LA (MM) 3.8 (1.6-4.0cm) Ao Root(MM) 3.8 (2.0-3.7cm) Aortic Valve AoV Vmax 1.5 m/s Ao Peak GR 9.3 mmHg LVOT Vmax 1.3 m/s AoV VTI 0.2 m Ao Mean GR 5.5 mmHg LVOT VTI 0.18 m AARON (VMAX) 4.54 cm2 AARON (VTI) 4.4 cm2 Mitral Valve MV E Vmax 70.7 cm/s DECEL Time 158 ms MV A Vmax 67.4 cm/s P 1/2 T 46 ms E/A ratio 1.0 MVA (PHT) 4.7 cm2 TDI E/E' Medial 6.3 E/E' Lateral 6.1 Medial E' Peak V 11.25 cm/s Lateral E' Peak V 11.56 cm/s Pulmonary Valve PV Vmax 1.6 m/s PV VTI 0.19 m PV Mean GR 5.0 mmHg PV Peak GR 10.4 mmHg Tricuspid Valve TR Vmax 3.6 m/s RAP (EST) 3 mmHg RVSP 64.1 mmHg TR Peak GR 61.1 mmHg Left Ventricle The left ventricle is normal size. GLS -14.0% There is normal left ventricular wall thickness. LVEF is 50-55%. No left ventricle thrombus noted on this study. The left ventricular diastolic function is normal. Right Ventricle The right ventricle is normal size. The right ventricular systolic function is normal. Atria The left atrium size is normal. There is no mass or thrombus suspected in the left atrium. The right atrium size is normal. There is no mass or thrombus suspected in the right atrium. Aortic Valve The aortic valve is trileafelt normal in structure. No aortic regurgitation is present. No aortic valvular vegetation noted. There is no aortic valvular stenosis. Mitral Valve The mitral valve is normal in structure. There is no mitral valve regurgitation noted. There are no mitral valve vegetation noted. There is no mitral valve stenosis. Tricuspid Valve The tricuspid valve is normal in structure. There is mild tricuspid valve regurgitation noted by color Doppler. RVSP 61mmHg. There is no tricuspid valve vegetation. Pulmonic Valve The pulmonary valve is not well visualized. There is no pulmonic valvular regurgitation. Great Vessels The aortic root is normal in size. The IVC is normal in size and collapses >50% with inspiration. Pericardium There is no pericardial effusion. Other Information Quality : Technically difficult study due to body habitus Rhythm : NSR Conclusion LVEF is 50-55%. No left ventricle thrombus noted on this study. No intracardiac masses No valvular vegetations DICTATED BY: ZELDA MARTINEZ DO DATE: 04/23/25922 ELECTRONICALLY SIGNED BY: ZELDA MARTINEZ DO DATE: 04/23/25 145 PATIENT: MARTY BARRON MR#: [id number] : 1990 SEX: M AGE: 35 LOCATION: 2DH ORDER 06 STATUS: ADM IN REPORT#: [id number] SERVICE 0600 REASON: multiple lung nodules suggestive of mets. recntly diagnosed adenoca colon. ORDERING PHYSICIAN: KRISTIAN MORTON MD PROCEDURE: BXLUNG - CT BX LUNG/MEDIASTINUM NDL IR PERCUTANEOUS CT-GUIDED BIOPSY OF left anterior rib mass: CLINICAL HISTORY: This is a 35 [id number] Male with multiple lesion seen in the lungs there is an expansile mass seen in the left anterior rib for CT-guided biopsy of left anterior rib mass. The risk and benefit was explained to the patient. The risks include infection and possible bleed. The patient consented to the procedure. PROCEDURE: Patient was placed in supine position. Patient was given IV conscious sedation with 2 mg of Versed and 50 MCG of fentanyl.. Under CT guidance left anterior rib lesion was localized. After sterile prep and drapa, using 1% xylocaine for local anesthetic, using a 18-gauge Bard gun, a total of 3 core biopsies were obtained. The specimen was sent for histology and cell block. The patient tolerated the procedure and post-biopsy demonstrated no bleed. There is no evidence of any pneumothorax. IMPRESSION: PERCUTANEOUS CT-GUIDED BIOPSY OF left anterior rib WITH SPECIMENS SENT FOR Histology and cell block.. THE PATIENT TOLERATED PROCEDURE WELL. PATHOLOGY REPORT IS PENDING. If this path report does not demonstrate malignancy I would recommend lung biopsy DICTATED BY: LEXIE NG MD DATE: 04/26/25 1111 ELECTRONICALLY SIGNED BY: LEXIE NG MD DATE: 04/26/25 1116 PATIENT: MARTY BARRON MR#: [id number] : 1990 SEX: M AGE: 35 LOCATION: 2AH ORDER [id number] STATUS: ADM IN REPORT#: [id number] SERVICE 1056 REASON: RLQ PAIN ORDERING PHYSICIAN: TITA PETERSON MD PROCEDURE: ABD PEL WO - CT ABDOMEN/PELVIS W/O CONTRAST ADDENDUM REPORT ADDENDUM: Results were shared by telephone at 1:37 pm on 04-22-[address] David Mary /[place] EXAM: CT Abdomen and Pelvis Without IV contrast CLINICAL HISTORY: RLQ PAIN TECHNIQUE: Axial computed tomography images of the abdomen and pelvis without intravenous contrast. CONTRAST: No IV contrast. COMPARISON: None provided. FINDINGS: LUNG BASES: Multiple randomly distributed nodules in both lungs, the largest measuring 2.1 x 1.6 cm in the medial basal segment of the right lower lobe. Patchy areas of consolidation in bilateral lower lobes. Ill-defined lytic-sclerotic lesion in the left anterior aspect of the 6th rib. Dependent airway disease along bilateral lower lobes, presumed to represent basal atelectasis. LIVER: Hepatic steatosis. GALLBLADDER AND BILE DUCTS: Post cholecystectomy status. No biliary ductal dilatation is evident. PANCREAS: Unremarkable. SPLEEN: Unremarkable. ADRENAL GLANDS: Bilateral adrenal glands appear diffusely bulky, predominantly on the left side, likely adrenal gland hyperplasia. KIDNEYS, URETERS, AND BLADDER: The kidneys appear within normal limits. There is no hydronephrosis or hydroureter. No urinary calculi are seen. STOMACH AND BOWEL: There is a defect of size 5.6 cm in the left anterior abdominal wall with herniation of the descending colon and small bowel loop. There is dilatation of the herniated bowel loop up to 4.1 cm, consistent with obstruction. Thickened and irregular appearing loop of small bowel in the mid pelvis. Ischemia is not excluded. A contrast-enhanced CT is recommended. PERITONEUM: Trace-free fluid. No free air. LYMPH NODES: No lymphadenopathy is evident. REPRODUCTIVE: Unremarkable as visualized. VASCULATURE: No evidence of abdominal aortic aneurysm. BONES: Lytic lesion in the L4 vertebral body. IMPRESSION: 1. Thickened and irregular appearing loop of small bowel in the mid pelvis. Ischemia is not excluded. A contrast-enhanced CT is recommended. 2. Left anterior abdominal wall hernia with herniation of descending colon and small bowel, with bowel obstruction up to 4.1 cm. 3. Lytic lesion in L4 vertebral body. Left anterior 6th rib lytic-sclerotic lesion. 4. Multiple pulmonary nodules, the largest 2.1 cm in the right lower lobe -suspicious for metastasis. 5. Bilateral adrenal gland hyperplasia, more prominent on the left. Suggest PET-CT for further evaluation. /[place] DICTATED BY: LYNDSEY ENRIQUE MD DATE: 04/22/25 1335 ELECTRONICALLY SIGNED BY: DATE: EXAM: CT Abdomen and Pelvis Without IV contrast CLINICAL HISTORY: RLQ PAIN TECHNIQUE: Axial computed tomography images of the abdomen and pelvis without intravenous contrast. CONTRAST: No IV contrast. COMPARISON: None provided. FINDINGS: LUNG BASES: Multiple randomly distributed nodules in both lungs, the largest measuring 2.1 x 1.6 cm in the medial basal segment of the right lower lobe. Patchy areas of consolidation in bilateral lower lobes. Ill-defined lytic-sclerotic lesion in the left anterior aspect of the 6th rib. Dependent airway disease along bilateral lower lobes, presumed to represent basal atelectasis. LIVER: Hepatic steatosis. GALLBLADDER AND BILE DUCTS: Post cholecystectomy status. No biliary ductal dilatation is evident. PANCREAS: Unremarkable. SPLEEN: Unremarkable. ADRENAL GLANDS: Bilateral adrenal glands appear diffusely bulky, predominantly on the left side, likely adrenal gland hyperplasia. KIDNEYS, URETERS, AND BLADDER: The kidneys appear within normal limits. There is no hydronephrosis or hydroureter. No urinary calculi are seen. STOMACH AND BOWEL: There is a defect of size 5.6 cm in the left anterior abdominal wall with herniation of the descending colon and small bowel loop. There is dilatation of the herniated bowel loop up to 4.1 cm, consistent with obstruction. Thickened and irregular appearing loop of small bowel in the mid pelvis. Ischemia is not excluded. A contrast-enhanced CT is recommended. PERITONEUM: Trace-free fluid. No free air. LYMPH NODES: No lymphadenopathy is evident. REPRODUCTIVE: Unremarkable as visualized. VASCULATURE: No evidence of abdominal aortic aneurysm. BONES: Lytic lesion in the L4 vertebral body. IMPRESSION: 1. Thickened and irregular appearing loop of small bowel in the mid pelvis. Ischemia is not excluded. A contrast-enhanced CT is recommended. 2. Left anterior abdominal wall hernia with herniation of descending colon and small bowel, with bowel obstruction up to 4.1 cm. 3. Lytic lesion in L4 vertebral body. Left anterior 6th rib lytic-sclerotic lesion. 4. Multiple pulmonary nodules, the largest 2.1 cm in the right lower lobe -suspicious for metastasis. 5. Bilateral adrenal gland hyperplasia, more prominent on the left. Suggest PET-CT for further evaluation. /[place] DICTATED BY: LYNDSEY ENRIQUE MD DATE: 04/22/251332 ELECTRONICALLY SIGNED BY: LYNDSEY ENRIQUE MD DATE: 04/22/251332 ASSESSMENT: Acute on chronic renal failure Hyponatremia Severe sepsis with MODS, resolved Leukocytosis Gram-positive cocci bacteremia Status post left rib biopsy by IR on 04/26/2025 New right upper lobe spiculated infiltrative mass measuring 5.4 x 4.6 cm infiltrating mediastinal pleura and albumin in the right main pulmonary artery Bulky mediastinal lymphadenopathy with the largest node measuring 4 cm involving the right paratracheal, prevascular, and subcarinal stations Multiple bilateral spiculated pulmonary nodules consistent with metastatic disease progression Bilateral marked diffuse adrenal enlargement likely metastatic or hyperplastic Left iliac fossa 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 Right upper extremity DVT involving the axillary and brachial veins Small-bowel obstruction Stage IV colorectal cancer with metastatic disease to the lung, pathology co nsistent with moderately differentiated adenocarcinoma, POA PLAN: Labs, diagnostic, radiologic exams reviewed and interpreted by myself and supervising physician. We have reviewed external records in detail Continue with close monitor renal function electrolytes, if renal function worsens recommend discontinue vancomycin, use alternative antibiotic if possi ble. BiPAP as necessary, for respiratory distress Monitor blood pressure adjust medication doses as needed Avoid hypotensive episodes May use Dilaudid 0.5 mg IV every 6 hours as needed for severe pain Strict intake, output, TSH, uric acid and daily weight should be monitored Please renally adjust medications Avoid nephrotoxic and nonsteroidal drugs Avoid contrast if possible Will continue to monitor renal function, anemia, electrolytes Treatment plan discussed with patient Questions were answered We have discussed with the other team physicians in detail about the care plan We will continue to monitor the patient closely ATTESTATION BY PHYSICIAN I have seen and examined the patient. I reviewed the documentation, medical decision making, and treatment plan as noted by the mid-level provider above. I agree with the findings and plan of care. ANAYA CHENEY MD, [facility] May 07, 2025 09:59
--- NOTE | 2025-05-07 10:22 | NUR ---
CLINIMIX INFUSION STOPPED PER DR PETERSON'S ORDER
--- NOTE | 2025-05-07 11:37 | PN ---
[facility] PROGRESS NOTE Date of Service: May 07, 2025 Time of Service: 11:36 SUBJECTIVE: 04/20 the patient has been seen and examined at bedside, case discussed with the RN, no acute events overnight, the time of my visit, the patient is awake, following commands, blood pressure 140/90, afebrile, saturating normal on room air. The patient is morbidly obese, he uses a CPAP at home, currently CPAP at bedside during my visit. WBC 14.0, hemoglobin 10.4, hematocrit 34.8, platelet count of 305. CMP shows sodium 141, potassium 3.5, BUN 70, creatinine 0.9, iron level of 25. X-ray of the knee showing moderate to severe three, power mental right knee osteoarthritis, predominantly in the lateral compartment, with small joint effusion. No acute fracture. Orthopedic physician consultation requested, we will follow input and recommendation. MRI of the right knee requested, however due to morbid obesity, might not be able to do it. Discussed with the mother is at the bedside, all questions answered, in agreement. 04/21 patient has been seen and examined at bedside, case discussed with the RN, no acute events overnight, the time my visit he is awake, following commands, admits mild dry nonproductive cough, spiked fever 102.6. Denied chest pain, shortness shortness for breath, no nausea, no vomiting, no abdominal discomfort. The patient has a colostomy bag, on examination, liquid stool noted. WBC slowly trending down at 12.7, hemoglobin stable 11.6. Magnesium 1.7. Added doxycycline 100 mg IV q.12 hours. Follow serology to include SARS antigen, influenza and rapid strep. We will give magnesium sulfate 2 g IV x1. We will order GI stool panel. Patient is scheduled for MRI to the right knee today, continue lidocaine patch, discussed with the orthopedic physician today, we will follow input and recommendation. 04/22 patient is seen and examined at bedside, discussed with the RN. Patient currently feels nauseated. He admits mild discomfort to the right lower quadrant. BP 135/77, mildly tachycardic at 108, saturating normal on room air. Maximum temperature last 24 hours 102.7. CBC shows a hemoglobin of 11.6, hematocrit 35.7, platelet count of 276, with a platelet count of 23.8. Creatinine 2.1. MRI of the right knee shows tricompartmental osteoarthritis with osteophytosis and diffuse cartilage loss, medial and lateral meniscal with complex degenerative tear involving posterior horns and bodies, meniscal tear severity grade 3, full-thickness chondral defect of the lateral femoral condyle, with a underlying subchondral edema, small reactive joint effusion with mild synovitis. We will upgraded the patient to the PCU, LR at 50 mL/hours, follow repeat CBC, CMP and magnesium level. Continue Rocephin and doxycycline IV. We will order a CT of the abdomen and pelvis without contrast to rule out intra- abdominal acute pathology. Orthopedic input noted and appreciated, patient with bad arthritis, we will finally benefit from knee replacement, however considering his morbid obesity, it is not indicated right now. Recommended con servative approach. Mother at bedside, all questions answered, updated, in agreement with plan of care. 04/23 patient is seen and examined at bedside, discussed with the RN, no acute events overnight, patient upgraded to the ICU yesterday due to sepsis and developing small bowel obstruction. Today the patient is awake, following commands, he is NPO, NG tube to intermittent suction, BP 120/76, heart rate of 111, saturating 96% 3 L nasal cannula, temperature 98.4. WBC of 27.6, hemoglobin 10.6, hematocrit 35.5, platelet count 240, creatinine improved to 1.2. Septic workup with blood culture positive for Staphylococcus epidermidis. Echocardiogram and chest x-ray pending. Patient will remain admitted to the ICU, continue broad-spectrum IV antibiotics, we will follow surgical input recommendation. Continue to follow critical Care and ID input and recommendation. And we will update the mother regarding results of CT of the abdomen pelvis and further plan of care when she is present in the room. CT abdomen and pelvis reviewed, as follows: * Patient is undergoing mass evaluation. * Interval progression since 22 April 2025 with a new right upper lobe spiculated infiltrative mass measuring 5.4 ??? 4.6 cm infiltrating mediastinal pleura and abutting the right main pulmonary artery. * Bulky mediastinal lymphadenopathy with largest node measuring 4 cm, involving right paratracheal, prevascular, precarinal, and subcarinal stations, increased since prior study. * Multiple bilateral spiculated pulmonary nodules (1???2.5 cm), consistent with metastatic disease progression. * Bilateral marked diffuse adrenal enlargement (Right 5.9 ??? 3.6 cm, Left 7.6 ??? 5.4 cm), likely metastatic or hyperplastic. 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 * Degenerative thoracolumbar spondylosis with L4 vertebral body wedging (30???40% height loss), unchanged. * Comparison is made with the exam dated 22 April 2025. Overall findings indicate worsening metastatic disease with new primary and gloria lesions and mechanical bowel obstruction requiring clinical and surgical correlation. Recommendations include oncologic evaluation and PET-CT staging, alongside urgent surgical consultation for bowel obstruction. 04/24 patient is seen and examined at bedside, discussed with the RN, no acute events overnight, patient downgraded from the ICU to the PCU, he remains NPO, NG tube connected to intermittent suction, output in the last 12 hours 200 mL. BP 146/150, heart rate of 101, afebrile, saturating 96-97% on nasal cannula. CBC shows a hemoglobin of 9.9, hematocrit 33.5, platelet count of 235, with WBC of 21.3. CMP with sodium 146, potassium 3.8, BUN of 18, creatinine 0.9, magnesium 1.8. Blood culture 04/21/2025 positive for Staphylococcus epidermidis. Repeat blood cultures 04/23/2025 no growth after 24 hours echocardiogram 04/23/2025 LVEF 50-55%, no left ventricle thrombus, no intracardiac masses, no valvular vegetations. Today chest x-ray pending. Patient will remain admitted to the PCU, NPO, intermittent suction, continue to follow surgical input recommendation, continue broad-spectrum IV antibiotics, follow WBC in a.m.. Follow KUB. I HAVE CONTACTED THE DEPARTMENT OF MEDICAL RECORDS [facility], SPOKE WITH ZENA AT PHONE NUMBER [phone], I HAVE REQUESTED MEDICAL RECORDS. WE WILL FOLLOW UP. 04/25 patient is seen and examined at bedside, case discussed with the RN, no acute events overnight, he remains comfortably in bed, NPO, NG tube to intermittent suction, he is awake, following commands, BP 128/90, area of 101, afebrile. Still feels distended. On examination colostomy bag, enema output noted. KUB pending. KUB from 04/24/2025 showing markedly dilated small bowel loops up to 5.6 cm, consistent with distal small-bowel obstruction, no pneumoperitoneum, pneumatosis intestinalis or portal venous gas. I received medical records from [facility], patient was admitted on 11/19/2024 and discharged 12/08/2024. Areolar in the hospital patient underwent exploratory laparoscopy, laparotomy and creation of transverse loop colostomy 11/28/2024. Patient was evaluated by oncologist Braulio Bell. 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 Per my discussion with the mother, from [facility] the patient was discharged to [facility] to recover and from there he went home. Patient has not had a follow up appointment with the general surgeon or oncologist after that. We have requested Oncology consultation here during this admission. Pathology report from rectal biopsy shows moderately differentiated adenocarcinoma, then new pulmonary nodules and mediastinal lymphadenopathy as per CT scan indicates the possibility of metastatic disease. CEA is [id number]. Req uested pulmonary nodule biopsy by IR. Patient will remain admitted to the PCU, we will continue NG tube to intermittent suction, NPO, TPN, follow surgical input and recommendation. Follow repeat KUB. Mother at bedside, updated, all questions answered. Plan of care discussed with the patient as well, in agreement. 04/26 patient is seen and examined at bedside, discussed with the RN, no acute events overnight, patient is status post CT-guided biopsy of left anterior rib mass, 04/26/2025, tolerated the procedure well. At the time of my visit, he is awake, following commands, denied chest pain, shortness shortness for breath, no nausea, no vomiting. Colostomy bag full of air. No stool or liquid noted. Plan is for the patient to start clear liquid diet and advanced as tolerated. We will follow results of pathology. Continue to follow a.m. labs. Mother at bedside, updated. 04/27 patient is seen and, discussed with the RN, no acute events overnight, alert oriented x3, tolerating clear liquid diet. Passing gas in the colostomy bag but no bowel movement yet. Patient was swollen to the right upper extremity. Doppler showing deep venous thrombosis involving the right axillary vein and brachial veins, nonocclusive thrombosis of the right cephalic vein (superficial venous thrombosis). Correlate clinically for pulmonary embolism risk. Hemoglobin of 10.4, hematocrit 35.9, platelet count of 18.7. Findings of Doppler discussed with the mother, we will start the patient on heparin drip, risks versus benefits discussed, agreed to proceed with the anticoagulation. We will insert midline in the left upper extremity. We will continue to clinically monitor the patient.status post CT-guided biopsy of left anterior rib mass, 04/26/2025, follow up pathology. Continue to follow oncology input and recommendation. 04/28 patient is seen and, discussed with the RN, no acute events overnight, alert oriented x3, remains admitted to the PCU, alert oriented x3 at the time of my visit, tolerating soft diet, passing gas but no BM yet. Doppler showing deep venous thrombosis involving the right axillary vein and brachial veins, nonocclusive thrombosis of the right cephalic vein (superficial venous thr ombosis). Continue heparin drip. Oncology input noted and appreciated. Patient will need Port-A-Cath insertion before discharge home. status post CT- guided biopsy of left anterior rib mass, 04/26/2025, follow up pathology. Continue broad-spectrum IV antibiotics, trend WBC in a.m. per mother at bedside, updated. 04/29/25 The patient continue with Heparin drip given to DVT right axillary vein and brachial vein: will transition to po close to discharged. This patient will need Port-A-Cath insertion before discharge home. This patient need to be clear for Port-A-Cath insertion by infectious disease 04/30/25 patient is lying in bed primary nurse reports no events overnight. Patient we will have IR place Port-A-Cath tomorrow. Patient continues with broad-spectrum antibiotics continues heparin drip transitioned to p.o. post procedure. 05/01 patient is seen and, discussed with the RN, no acute events overnight, alert oriented x3, remains admitted to the PCU, alert oriented x3 at the time of my visit, tolerating soft diet, passing gas but no BM yet. Doppler showing deep venous thrombosis involving the right axillary vein and brachial veins, nonocclusive thrombosis of the right cephalic vein (superficial venous thrombosis). Continue heparin drip. Oncology input noted and appreciated. Patient will need Port-A-Cath insertion before discharge home. IR consultation requested. status post CT-guided biopsy of left anterior rib mass, 04/26/2025, follow up pathology. Continue broad-spectrum IV antibiotics, trend WBC in a.m. per mother at bedside, updated. On physical examination, only small liquid o utput from colostomy bag, no solid stool noted. Discussed with surgery, recommended small-bowel series. Continue to trend WBC in a.m.. Patient may require transfer to higher level of care, we will discuss with case management. 05/02 patient is seen and, discussed with the RN, no acute events overnight, alert oriented x3, remains admitted to the PCU, alert oriented x3 at the time of my visit, tolerating soft diet, passing gas. Colostomy bag on exam looks more full compared to yesterday however not solid stool yet. Discussed with the surgery yesterday, recommended small-bowel series, likely to be completed today, we will follow up. 05/03 patient is seen and examined at bedside, discussed with the RN, no acute events overnight, patient remains comfortably in bed, alert oriented x3, feels hungry, passing gas, liquid stool noted in colostomy bag, still pending to complete small-bowel series. Patient remains on heparin drip, swollen to the right upper extremity almost resolved. Denies pain to the right upper arm. Continue to follow a.m. labs. Oncology input noted and appreciated, biopsy consistent with adenocarcinoma. Patient has stage IV colorectal cancer with metastatic disease to the lung. Peripheral bloood smear shows microcytic hypochromic anemia consistent with iron deficiency anemia . There is teardrop cell, pelger huet cell and rouleaux formation .Increased number of WBCs observed with neutrophilia and hypersegmented neutrophils suggestive of underlying infection . Band cells observed. Platelet morphology and count within normal limits .Discussed with the mother at bedside, all questions answered. In agreement. 05/04 patient is seen and examined at bedside, discussed with the RN, no acute events overnight, patient remains comfortably in bed, alert oriented x3, small- bowel series done 05/02/2025, still pending report. Continue the patient on TPN. Mother at bedside, updated. Follow a.m. labs. 05/05 patient is seen and examined at bedside, discussed with the RN, no acute events overnight, during my visit comfortably in bed, alert oriented x3, on TPN, results of small-bowel series no evidence of obstruction, patient is started on clear liquid diet. We will advance to soft diet today. Mother and father at bedside during my visit, updated. Per the mother, she stated that the patient is still have pain on both knees on is trying to work with the physical therapist. We will start the patient on Toradol 15. mg IV every 6 hours as needed monitor renal function in a.m.. Continue to follow CBC in a.m. transfuse as needed. Hematology and ID input noted and appreciated. 05/06 patient is seen and examined at bedside, discussed with the RN, no acute events overnight, during my visit comfortably in bed, alert oriented x3, patient was started on full liquid diet yesterday, however had episode of vomiting. He is still on TPN. Today blood pressure 153/99, afebrile, saturating 97% 2 L nasal cannula. Hemoglobin 10.7, hematocrit 34.2, WBC 17.1. Sodium level 129, with a 4.6, BUN 32, creatinine 0.7, magnesium 2.3. We will keep the patient on clear liquid diet. We will discuss case with the General surgery. Hold TPN as the patient with a hyponatremia, also on Lasix 20 mg IV b.i.d.. Continue Reglan and dexamethasone IV. Encourage out of bed to chair. Follow a.m. labs. Mother at bedside, updated, all questions answered. 05/07 patient is seen and examined at bedside, discussed with the RN, no acute events overnight, during my visit comfortably in bed, alert oriented x3, patient is started on GI soft diet yesterday, tolerated well, no nausea, no vomiting, no abdominal discomfort. Sodium level 128, we will discontinue TPN. Continue to follow level in a.m.. Continue to encourage out of bed to chair. Physical therapy to evaluate the patient. Continue to follow oncology input recommendation terms of Port-A-Cath placement prior to discharge. Currently patient remains on heparin drip. Mother and father at bedside, updated, all questions answered. REVIEW OF SYSTEMS CONSTITUTIONAL: Denies fevers, chills, or night sweats. No unintentional weight loss reported. NEUROLOGICAL: Denies headache, amaurosis fugax, motor weakness, sensory deficit, vertigo/spinning sensation, gait abnormalities, or tremors. ENT: No hearing loss, otalgia, otorrhea, rhinitis, rhinorrhea, hoarseness, or sore throat. CARDIOVASCULAR: Denies any exertional angina, dyspnea on exertion, orthopnea, paroxysmal nocturnal dyspnea, palpitations, life-threatening arrhythmias, claudication. PULMONARY: Denies any shortness of breath, cough, phlegm/sputum, hemoptysis, pleuritic chest pain. SLEEP: Denies morning headaches, daytime somnolence or napping. Denies difficulty falling asleep, staying asleep, waking from sleep. Denies knowledge of snoring. GASTROINTESTINAL: Denies any type of dysphagia to either liquids or solids. Denies nausea, vomiting, pyrosis, early satiety, abdominal pain, diarrhea, constipation, or changes in stool consistency or caliber. Denies coffee-ground emesis, hematemesis, hematochezia, or melanotic stools. GENITOURINARY: Denies frequency, urgency, nocturia, hematuria or incontinence (Storage/Irritative symptoms.) Low urinary stream, straining to void, urinary i ntermittency or hesitancy, splitting of the voiding stream, terminal dribbling. ENDOCRINOLOGIC: Denies polyuria, polydipsia, polyphagia or heat/cold intolerances. HEMATOLOGIC: Denies thrombophilia/previous clots, or coagulopathy/bleeding disorders. ONCOLOGIC: Denies personal history of malignancy. DERMATOLOGIC: Denies rashes or pruritus. PSYCHIATRIC: Denies any suicidal or homicidal ideation. Denies hallucinations. PHYSICAL EXAM GENERAL APPEARANCE: Patient awake, following commands, NG tube to intermittent suction. NEUROLOGICAL: Cranial nerves II-XII grossly intact. Motor is 5/5 in bilateral upper and lower extremities proximal to distal. No sensory deficits. HEENT: Face is symmetric. Pupils are equal and reactive. Extraocular movements are intact. NECK: Supple. No JVD. No thyromegaly. No submental, submandibular, pre-/postauricular, occipital or supraclavicular lymphadenopathy. CHEST: Normal chest expansion. No Telemetry. LUNGS: Absence of any rales, rhonchi or any wheezing. CARDIOVASCULAR: Regular. S1 and S2 normal. No appreciable rubs, murmurs or gallops. ABDOMEN: Liquid output colostomy bag noted. : Deferred. No Doe. EXTREMITIES: Mild swelling to the right knee area, lidocaine patch in place. SKIN: No skin breakdown. Vital Signs (last 8hr) Date Time Temp Pulse Resp B/P (MAP) Pulse Ox O2 Delivery O2 Flow Rate FiO2 05/07/25 10:34 93 Room Air* 0 21 05/07/25 08:00 98.1 81 16 19/65 93 Room Air 05/07/25 06:57 81 19 N/A Room Air 21 05/07/25 04:06 98.4 81 20 146/79 97 Room Air LABS: Laboratory: Test 05/07/25 07:59 05/07/25 05:19 05/06/25 21:11 05/06/25 17:45 Range/Units White Blood Count 18.2 H 4.8-10.8 K/uL Red Blood Count 4.78 4.50-6.20 MIL/uL Hemoglobin 11.6 L 14.0-18.0 g/dL Hematocrit 37.2 L 42-54 % Mean Corpuscular Volume 77.8 L 79-99 fL Mean Corpuscular Hemoglobin 24.3 L 27.0-33.0 pg Mean Corpuscular Hemoglobin Concent 31.2 L 32.0-36.0 g/dL Red Cell Distribution Width 22.7 H 11.0-15.5 % Platelet Count 353 130-400 K/uL Mean Platelet Volume 10.1 7.5-10.5 fL Immature Granulocyte % (Auto) 3.6 H 0-1 % Neutrophils (%) (Auto) 73.4 40.0-77.0 % Lymphocytes (%) (Auto) 11.3 L 21.0-51.0 % Monocytes (%) (Auto) 11.1 3.0-13.0 % Eosinophils (%) (Auto) 0.2 0.0-8.0 % Basophils (%) (Auto) 0.4 0.0-5.0 % Neutrophils # (Auto) 13.4 H 1.8-7.7 K/uL Lymphocytes # (Auto) 2.1 1.0-4.8 K/uL Monocytes # (Auto) 2.0 H 0.1-1.0 K/uL Eosinophils # (Auto) 0.03 0.00-0.70 K/uL Basophils # (Auto) 0.07 0.00-0.20 K/uL Absolute Immature Granulocyte (auto 0.66 0-1 K/uL Nucleated Red Blood Cells 0.0 0.0-0.19 % Activated Partial Thromboplast Time 61.2 H 26.3-35.5 SEC Sodium Level 128 L 136-145 mmol/L Potassium Level 4.7 3.5-5.1 mmol/L Chloride Level 95 L 101-111 mmol/L Carbon Dioxide Level 30 21-32 mmol/L Blood Urea Nitrogen 36 H 7-18 mg/dL Creatinine 0.7 0.5-1.3 mg/dL Glomerular Filtration Rate Calc 123 >90 mL/min Random Glucose 115 H 70-105 mg/dL Uric Acid 4.4 2.6-7.2 mg/dL Total Calcium 8.5 8.5-10.1 mg/dL Phosphorus Level 4.3 2.5-4.9 mg/dL Magnesium Level 2.30 1.80-2.40 mg/dL Total Bilirubin 0.9 0.2-1.0 mg/dL Aspartate Amino Transf (AST/SGOT) 93 H 10-37 U/L Alanine Aminotransferase (ALT/SGPT) 106 H 12-78 U/L Alkaline Phosphatase 260 H 50-136 U/L Total Protein 7.0 6.0-8.3 g/dL Albumin 2.3 L 3.5-5.0 g/dL Thyroid Stimulating Hormone (TSH) 6.43 H 0.36-3.74 uIU/mL Whole Blood Glucose 123 H 70-110 MG/DL Bedside Glucose Comment Notified Nurse Urine Color YELLOW YELLOW Urine Appearance CLEAR CLEAR Urine pH 6.5 5.0-8.0 Urine Specific Sharples 1.024 1.001-1.031 Urine Protein 20 H NEGATIVE mg/dL Urine Glucose (UA) NEGATIVE NEGATIVE mg/dL Urine Ketones NEGATIVE NEGATIVE mg/dL Urine Occult Blood NEGATIVE NEGATIVE Urine Nitrate NEGATIVE NEGATIVE Urine Bilirubin NEGATIVE NEGATIVE mg/dL Urine Urobilinogen 0.2 0.2-1.0 mg/dL Urine Leukocyte Esterase NEGATIVE NEGATIVE Kelly/uL Urine RBC 0-1 0-1 /HPF Urine WBC 0-1 0-1 /HPF Urine Squamous Epithelial Cells RARE 0-2 /HPF Urine Bacteria None None Seen /HPF Urine Random Creatinine 63.32 30-135 mg/dL Urine Random Sodium 87 40-220 mmol/l Urine Random Potassium 24 L 25-125 mmol/L Urine Random Chloride 35 L 110-250 mmol/L Test 05/06/25 06:36 Range/Units Segmented Neutrophils % 84 H 40-70 % Band Neutrophils % 2 0-2 % Lymphocytes % (Manual) 6 L 22-44 % Monocytes % (Manual) 6 2-9 % Differential Comment MANUAL DIFFERENTIAL Reactive Lymphocytes 2 H 0-0 % White Cell Morphology Comment TOXIC GRANULATION 2+ Platelet Morphology Comment ADEQUATE Red Blood Cell Morphology See comments Vancomycin Level Trough 9.2 L 10.0-20.0 UG/ML Current Medications Medications (Trade) Dose Ordered Sig/Checo Route PRN Reason Start Time Stop Time Status Last Admin Dose Admin Acetaminophen (TYLenol 325MG TAB) 650 mg Q6H PRN PO FEVER/pain 1-3 04/19/25 22:00 05/19/25 21:59 05/05/25 11:49 650 MG Benzocaine (Cepacol Sore Throat Lozenge) 1 each Q4H PRN MM SORE THROAT 05/06/25 11:30 06/05/25 11:29 05/07/25 08:43 1 EACH Benzonatate (Tessalon 100mg Caps) 100 mg Q8H PRN PO COUGH 05/03/25 11:00 06/02/25 10:59 05/03/25 11:32 100 MG Cefepime HCl (MAXipime 2 gm vial) 2 gm Q8H IVPB 04/22/25 13:00 04/30/25 13:07 DC 04/30/25 04:27 2 GM Cefepime HCl (MAXipime 2 gm vial) 2 gm Q8H IVPB 04/30/25 16:00 05/01/25 12:05 DC 05/01/25 00:34 2 GM Ceftriaxone Sodium (ROCEphine 1G INJ) 1 gm Q24H IVPB 04/20/25 10:00 04/22/25 12:41 DC 04/22/25 10:53 1 GM Dexamethasone Sodium Phosphate (dexaMETHasone 4MG/ML 1ML VIAL) 10 mg Q24H IV 05/01/25 17:00 05/02/25 09:13 DC 05/01/25 17:22 10 MG Dexamethasone Sodium Phosphate (dexaMETHasone 10MG/ML 1ML VIAL) 10 mg Q24H IV 05/02/25 17:00 05/06/25 11:21 DC 05/05/25 17:42 10 MG Dextrose 1,000 ml @ 50 mls/hr Q20H IV 04/25/25 08:00 04/25/25 16:53 DC 04/25/25 10:38 100 MLS/HR Doxycycline Hyclate 250 ml @ 125 mls/hr Q12H IV 04/21/25 08:30 04/22/25 12:41 DC 04/22/25 08:14 125 MLS/HR Enoxaparin Sodium (Lovenox) 40 mg DAILY SQ 04/20/25 09:00 04/22/25 20:00 DC 04/22/25 08:14 40 MG Enoxaparin Sodium (Lovenox) 40 mg Q12H SQ 04/22/25 21:00 04/27/25 13:24 DC 04/27/25 08:10 40 MG Famotidine (Pepcid 20mg Vial) 20 mg BID IV 05/02/25 21:00 05/06/25 11:27 DC 05/06/25 09:13 20 MG Famotidine (Pepcid 20mg Tab) 20 mg DAILY PO 04/20/25 09:00 05/02/25 12:03 DC 04/30/25 09:23 20 MG Fluconazole (DiFLUCan 100 mg TAB) 200 mg Q24H PO 05/01/25 12:30 05/02/25 12:03 DC Fluconazole/ Sodium Chloride (DiFLUCan 200 MG/ NS 100 ML) 200 mg Q24H IVPB 05/02/25 12:00 06/01/25 11:59 05/06/25 14:19 200 MG Furosemide (LASix 20MG VIAL) 20 mg Q12H IV 04/29/25 11:00 05/29/25 10:59 05/06/25 23:04 20 MG Furosemide (LASix 20MG VIAL) 20 mg Q8H IV 04/24/25 19:00 04/25/25 03:01 DC 04/25/25 03:06 20 MG Heparin Sodium (Porcine) (HEParin 5,000 UNIT VIAL) *calculation based on ACTUAL B... AD PRN IV HEPARIN PROTOCOL 04/27/25 14:00 05/27/25 13:59 05/06/25 07:49 10,000 UNIT Heparin Sodium/ Dextrose 250 ml @ 0 mls/hr Q6H IV 04/27/25 14:00 05/27/25 13:59 05/07/25 08:47 19 MLS/HR Hydralazine HCl (APRESOLine 20MG INJ) 5 mg Q6H PRN IV For:SBP above 160;DBP above 90 04/20/25 16:00 05/20/25 15:59 Hydralazine HCl (APRESOLine 20MG INJ) 10 mg Q6H PRN IV For:SBP above 160;DBP above 90 04/19/25 22:00 04/20/25 10:52 DC Hydromorphone HCl (DiLAUDid 0.5MG INJ) 0.5 mg Q4H PRN IVP SEVERE PAIN (7-10) 04/22/25 20:00 04/27/25 19:59 DC Ipratropium [place] (AtrovENT UD) 0.5 MG Q6H PRN IH SHORTNESS OF BREATH 04/28/25 19:30 05/28/25 19:29 04/29/25 11:10 0.5 MG Iron Sucrose (VenoFER) 200 mg DAILY IV 04/26/25 09:00 04/28/25 11:00 DC 04/28/25 09:20 200 MG Ketorolac Tromethamine (toRADol) 15 mg Q6H PRN IM MODERATE PAIN (4-6) 04/30/25 11:30 05/05/25 11:29 DC 05/03/25 14:33 15 MG Ketorolac Tromethamine (toRADol) 15 mg Q6H PRN IV MODERATE PAIN (4-6) 04/20/25 11:00 04/22/25 19:58 DC 04/20/25 22:08 15 MG Ketorolac Tromethamine (toRADol) 15 mg Q6H PRN IV MODERATE PAIN (4-6) 05/05/25 14:30 05/10/25 14:29 05/06/25 09:13 15 MG Labetalol HCl (TRANdate 20MG SYG) 10 mg Q6H PRN IV SUSTAINED HR >120 04/23/25 00:00 05/23/25 00:00 Lactated Ringer's 1,000 ml @ 50 mls/hr Q20H IV 04/21/25 12:30 04/25/25 07:47 DC 04/24/25 02:58 75 MLS/HR Lactated Ringer's 1,000 ml @ 100 mls/hr Q10H IV 04/19/25 22:00 04/20/25 10:52 DC 04/21/25 12:40 100 MLS/HR Lactulose (Constulose 20gm/ 30ml Udcup) 20 gm ACHS PRN PO CONSTIPATION 04/29/25 20:00 04/30/25 13:06 DC 04/30/25 09:33 20 GM Lactulose (Constulose 20gm/ 30ml Udcup) 20 gm BID PRN PO CONSTIPATION 04/19/25 22:00 04/29/25 19:41 DC Lactulose (Constulose 20gm/ 30ml Udcup) 20 gm Q6HWA PRN PO CONSTIPATION 04/30/25 13:00 05/30/25 12:59 Lidocaine (Lidocaine Patch 4%) 1 each DAILY TP 04/21/25 09:00 05/21/25 08:59 05/07/25 09:58 1 EACH Magnesium Sulfate 50 ml @ 0 mls/hr PROTOCOL IV 04/21/25 08:30 05/21/25 08:29 04/24/25 06:11 25 MLS/HR Meropenem (Merrem 1gm) 1 gm Q8H IVPB 05/01/25 12:30 05/02/25 12:29 DC 05/02/25 04:15 1 GM Meropenem (Merrem 1gm) 1 gm Q8H IVPB 05/04/25 16:30 05/14/25 16:29 05/07/25 08:43 1 GM Metoclopramide HCl (regLAN 10MG IV) 10 mg Q6H6 IVP 05/01/25 18:00 05/31/25 17:59 05/07/25 05:50 10 MG Metronidazole/ Sodium Chloride 100 ml @ 100 mls/hr Q8H6 IVPB 04/22/25 14:00 05/02/25 13:59 DC 05/02/25 09:55 100 MLS/HR Morphine Sulfate (morPHINE 4MG SYG) 4 mg Q4H PRN IVP SEVERE PAIN (7-10) 04/19/25 22:00 04/20/25 10:52 DC Nystatin (NystOP 15 GM POWDER) 1 APPLICATION BID TP 04/26/25 14:00 05/26/25 13:59 05/07/25 08:55 1 APPL Ondansetron HCl (zoFRAN 4MG INJ) 4 mg Q6H PRN IV NAUSEA/VOMITING 04/19/25 22:00 05/19/25 21:59 04/24/25 22:19 4 MG Pantoprazole Sodium (PROTonix 40MG INJ) 40 mg BID IVP 05/06/25 21:00 06/05/25 20:59 05/07/25 08:43 40 MG Pharmacy Profile Note (Pharmacy Communication) 1 each ONCE MISC 05/01/25 12:30 05/01/25 12:11 DC Pharmacy Profile Note (Pharmacy Communication) 1 each ONCE MISC 05/04/25 16:30 05/04/25 16:22 DC Potassium Chloride 100 ml @ 100 mls/hr PROTOCOL PRN IV hypokalemia 05/01/25 21:00 05/31/25 20:59 05/01/25 22:29 100 MLS/HR Promethazine HCl (Phenergan) 12.5 mg Q8H5 PRN IM NAUSEA/VOMITING 04/22/25 12:30 05/22/25 12:29 04/22/25 12:25 12.5 MG Sodium Chloride 500 ml @ 0 mls/hr Q0M STAT IV 04/22/25 13:17 04/22/25 13:22 DC 04/22/25 14:39 600 MLS/HR Vancomycin HCl 250 ml @ 125 mls/hr Q12H IV 05/06/25 08:00 05/16/25 07:59 05/07/25 09:58 125 MLS/HR Vancomycin HCl 250 ml @ 125 mls/hr Q24H IV 05/01/25 05:00 05/06/25 07:19 DC 05/05/25 05:03 125 MLS/HR Vancomycin HCl 250 ml @ 125 mls/hr Q8H IV 04/29/25 21:00 04/30/25 14:25 DC 04/30/25 05:52 125 MLS/HR Vancomycin HCl (Vancomycin Protocol) 1 each AD IV 04/22/25 15:00 04/23/25 22:23 DC Vancomycin HCl (Vancomycin Protocol) 1 each AD IV 04/29/25 11:00 05/13/25 10:59 DIAGNOSTICS / RADIOLOGY: [ ] ASSESSMENT: Severe sepsis with MODS, resolved Leukocytosis Gram-positive cocci bacteremia Status post left rib biopsy by IR on 04/26/2025 New right upper lobe spiculated infiltrative mass measuring 5.4 x 4.6 cm in filtrating mediastinal pleura and albumin in the right main pulmonary artery Bulky mediastinal lymphadenopathy with the largest node measuring 4 cm involving the right paratracheal, prevascular, and subcarinal stations Multiple bilateral spiculated pulmonary nodules consistent with metastatic disease progression Bilateral marked diffuse adrenal enlargement likely metastatic or hyperplastic Left iliac fossa 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 Right upper extremity DVT involving the axillary and brachial veins Small-bowel obstruction Stage IV colorectal cancer with metastatic disease to the lung, pathology consistent with moderately differentiated adenocarcinoma, POA PLAN: patient is seen and examined at bedside, discussed with the RN, no acute events overnight, during my visit comfortably in bed, alert oriented x3, patient is started on GI soft diet yesterday, tolerated well, no nausea, no vomiting, no abdominal discomfort. Sodium level 128, we will discontinue TPN. Continue to follow level in a.m.. Continue to encourage out of bed to chair. Physical therapy to evaluate the patient. Continue to follow oncology input recommendation terms of Port-A-Cath placement prior to discharge. Currently patient remains on heparin drip. Mother and father at bedside, updated, all questions answered. NEURO: Minimize central acting medications as possible. Fall Precautions. Well lighted room through the day and minimize interruptions through the night to prevent acute delirium. PULMONARY: Supplemental 02 as needed BiPAP as necessary, for respiratory distress Titrate Fio2 to keep Spo2 > or = 90% DuoNebs and CPT as needed IS hourly while awake for pulmonary hygiene prn Out of bed to chair as tolerated Maintain aspiration precautions at all times CARDIOVASCULAR: Follow hemodynamics. Vital signs per facility protocol GI & NUTRITION: Continue nutritional support Aspirations precautions Prokinetic agents and laxatives as needed KIDNEYS & ELECTROLYTES: Strict monitoring of intake and output Daily weights Avoid nephrotoxic agents Monitor electrolytes and replace as needed Goal urine output of 30mL/hr or 0.5mL/kg/hr Medications to be dosed according to renal function. Avoid contrast if possible ENDOCRINE: Maintain blood glucose between 100-180 at all times. Insulin sliding scale for blood glucose management Hypoglycemia and hyperglycemia protocol in place INFECTIOUS DISEASE: Trend temperature, WBC and procalcitonin level Follow cultures, deescalate antibiotics as soon as possible. Panculture if new onset fever HEMATOLOGY & COAGULATION: Monitor H&H. Keep Hgb > 7 Transfuse 1 unit of PRBC for Hgb < 7 Transfuse 1 pack of platelets of platelets < 20, 000 Watch for any signs and symptoms of bleeding SKIN: Pressure ulcer prevention per facility protocol Specialty mattress as needed ORTHO/REHAB Continue PT/OT PRN: MEDICATIONS Tylenol 650 mg po every 4 hrs for fever zofran 4 mg IV every 6 hrs for n/v Hydralazine 5 mg IV every 4 hrs systolic pressure > 160 bowel regiment: lactulose 20 gm PO BID PRN constipation Supportive measures: Continue GI and DVT prophylaxis Disposition: Pending improvement in clinical condition All questions answered time spent: > 35 min TITA PETERSON MD May 07, 2025 11:37
--- NOTE | 2025-05-07 12:49 | PN ---
[facility] PROGRESS NOTE Date Patient Seen: May 07, 2025 Time of Visit: 12:45 Supervising Physician: Mack Jha Inpatient Consults: Dr. Nguyen, Dr. Abad, Dr. Henry, Dr. Johnson PROBLEM LIST: Severe sepsis with MODS, resolving Leukocytosis Staphylococcus epidermidis bacteremia, which is a contaminant. Status post left rib biopsy by IR on 04/26/2025 New right upper lobe spiculated infiltrative mass measuring 5.4 x 4.6 cm infiltrating mediastinal pleura and albumin in the right main pulmonary artery Bulky mediastinal lymphadenopathy with the largest node measuring 4 cm involving the right paratracheal, prevascular, and subcarinal stations Multiple bilateral spiculated pulmonary nodules consistent with metastatic dise ase progression (+) adenocarcinoma Stage IV Colorectal cancer with metastatic disease to the lung Bilateral marked diffuse adrenal enlargement likely metastatic or hyperplastic Left iliac fossa 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 deep venous thrombosis involving the right axillary vein and brachial veins INTERVAL HISTORY: 05/01 - Patient seen and examined, all labs and imaging have been reviewed, patient is awake alert and oriented, nursing reports no acute events overnight. Patient is afebrile, vital signs are stable, good sats on nasal cannula 2 L Patient continues on the cefepime, vanc and Flagyl, the last blood cultures positive for from the blood, staph on 04/21 Sputum is pending He continues on duo nebs He is on Lasix 20 mg and we have 520 of urine out in 12 hours Chest x-ray is pending 05/02 - Patient is seen and examined at the bedside. Pt is laying in bed resting quietly accompanied by his mom and other family members. Patient appears to be weak, deconditioned, and hypoxemic requiring 2 L via N/C. Patient continues utilizing Bipap nightly. Pt reports he uses a Cpap at home nightly. Patient continues on multiple broad spectrum antibiotics which are being managed by Dr Nguyen. Most recent cxray shows resolving left upper lung infiltrate. White count slowly trending down. Biopsy results are still pending. Patient continues on heparin drip for DVT. PT was evaluated by Dr Johnson and depending on Lung nodule biopsy results, will plan for genetic phenotyping for targeted therapy if feasible. Pt had a KUB performed which shows partial small bowel obstruction. As per nursing, surgery team has been made aware. Will continue to follow closely. 05/03 - Patient was seen and examined, patient is sitting at the side of the bed. Patient is just back from his small bowel pass through. He states that he has had numerous loose stools and is passing gas. He is hoping to resume his diet shortly. We are waiting on surgery's recommendations Patient is awake alert and oriented reporting no pain or discomfort Good saturations on room air His vital signs are stable We ordered new cultures he continues on Merrem fluconazole and vancomycin 05/04 - patient is seen in the evaluated at the bedside. Patient is sitting up in bed accompanied by his mom. Patient appears to be weak, deconditioned and hypoxemic currently requiring2 L via nasal cannula. Patient continues using a CPAP nightly. Patient remains NPO as suspected small bowel obstruction. Patient had a small bowel series and currently pending official results. Patient does report continues with large watery stools. Patient reports he is hungry in hope to resume his diet soon. Follow surgery recommendations. As per Dr. Johnson's note, patient has stage IV colorectal cancer with metastatic disease to the lungs. Pathology is consistent with moderately differentiated adenocarcinoma. Patient is advised on the importance of getting up out of bed and attempting to work with physical therapy as tolerated. Prognosis remains guarded. Patient continues on broad-spectrum antibiotics per Infectious Disease. White count trending down. 05/05 - patient is seen sitting up in bed continues to be weak, deconditioned hypoxemic requiring 2 L via nasal cannula. Patient continues utilizing his CPAP nightly. No acute changes reported overnight. Patient's small-bowel series shows resolving Gastrografin small-bowel follow-through with24 hour Gastrografin has rates sigmoid colon and transverse colon. Patient has been started on clear liquid diet and instructed to advance as tolerated per surgical team. Patient continues on heparin drip for right upper extremity DVT. Patient continues on multiple broad-spectrum antibiotics as per Infectious Disease. Patient is being followed closely by Oncology. Patient advised to get out of bed and work with physical therapy as tolerated. 05/06-seen and examined the patient while resting in bed with the head of the bed elevated patient has limited mobility, awake alert and oriented in no acute distress with family members present. Reviewed and discussed with family members the patient's assessment condition patient is not short of breath, is not presenting in acute hypoxic respiratory failure, and denies shortness of breath, fever, chills, nauseousness, constipation, and diarrhea currently. Hemodynamically stable. Afebrile a.m. labs have been ordered. Reviewed and discussed with family members diagnostic tests results, vital signs, and laboratory results. 05/07 - patient is seen and evaluated at the bedside. Patient is lying in bed resting quietly accompanied by his mom. Patient is awake alert and oriented x3. Patient with no signs of acute distress. Patient remains on room air denies chest discomfort, chest pain or dyspnea. Patient does appear to be very weak and reports he has not been able to ambulate yet. Patient does sitting at the bedside however still very weak. Patient diet has been advanced and so far tolerating well, with no nausea, vomiting or abdominal pain. Patient reports his last bowel movement was yesterday. Mom reports patient is scheduled for a Port-A-Cath placement tomorrow. Vital signs are stable. PLAN Supplemental oxygen as needed Wean off as tolerated Continue CPAP nightly and p.r.n. Continue diet as per sx team Follow surgical team recs Continue antibiotics as per Infectious Disease Follow up Dr. Johnson recommendations Pending port a cath placement in AM REVIEW OF SYSTEMS: 12 point ROS reviewed with patient. Pertinent positives mentioned above. Otherwise negative. PHYSICAL EXAM: GENERAL: alert, obese, weak, awake oriented x 3 HEENT: EOMI, Sclera non icteric, moist mucosa NC NECK: Supple, no JVD, trachea midline LUNGS: Diminished breath sounds bilaterally. No wheezes HEART: Normal rate and rhythm. Normal S1 and S2, without murmurs ABD: morbidly obese Abdomen soft, nontender. Bowel sounds hypoactive EXT: No clubbing cyanosis or edema NEURO: Alert and oriented to person, follows commands Vital Signs (last 8hr) Date Time Temp Pulse Resp B/P (MAP) Pulse Ox O2 Delivery O2 Flow Rate FiO2 05/07/25 10:34 93 Room Air* 0 21 05/07/25 08:00 98.1 81 16 19/65 93 Room Air 05/07/25 06:57 81 19 N/A Room Air 21 LABS: Hematology Labs: Test 05/07/25 07:59 05/06/25 06:36 Range/Units White Blood Count 18.2 H 4.8-10.8 K/uL Red Blood Count 4.78 4.50-6.20 MIL/uL Hemoglobin 11.6 L 14.0-18.0 g/dL Hematocrit 37.2 L 42-54 % Mean Corpuscular Volume 77.8 L 79-99 fL Mean Corpuscular Hemoglobin 24.3 L 27.0-33.0 pg Mean Corpuscular Hemoglobin Concent 31.2 L 32.0-36.0 g/dL Red Cell Distribution Width 22.7 H 11.0-15.5 % Platelet Count 353 130-400 K/uL Mean Platelet Volume 10.1 7.5-10.5 fL Immature Granulocyte % (Auto) 3.6 H 0-1 % Neutrophils (%) (Auto) 73.4 40.0-77.0 % Lymphocytes (%) (Auto) 11.3 L 21.0-51.0 % Monocytes (%) (Auto) 11.1 3.0-13.0 % Eosinophils (%) (Auto) 0.2 0.0-8.0 % Basophils (%) (Auto) 0.4 0.0-5.0 % Neutrophils # (Auto) 13.4 H 1.8-7.7 K/uL Lymphocytes # (Auto) 2.1 1.0-4.8 K/uL Monocytes # (Auto) 2.0 H 0.1-1.0 K/uL Eosinophils # (Auto) 0.03 0.00-0.70 K/uL Basophils # (Auto) 0.07 0.00-0.20 K/uL Absolute Immature Granulocyte (auto 0.66 0-1 K/uL Nucleated Red Blood Cells 0.0 0.0-0.19 % Segmented Neutrophils % 84 H 40-70 % Band Neutrophils % 2 0-2 % Lymphocytes % (Manual) 6 L 22-44 % Monocytes % (Manual) 6 2-9 % Differential Comment MANUAL DIFFERENTIAL Reactive Lymphocytes 2 H 0-0 % White Cell Morphology Comment TOXIC GRANULATION 2+ Platelet Morphology Comment ADEQUATE Red Blood Cell Morphology See comments Chemistry Labs: Test 05/07/25 11:49 05/07/25 07:59 05/06/25 21:11 Range/Units Whole Blood Glucose 102 70-110 MG/DL Sodium Level 128 L 136-145 mmol/L Potassium Level 4.7 3.5-5.1 mmol/L Chloride Level 95 L 101-111 mmol/L Carbon Dioxide Level 30 21-32 mmol/L Blood Urea Nitrogen 36 H 7-18 mg/dL Creatinine 0.7 0.5-1.3 mg/dL Glomerular Filtration Rate Calc 123 >90 mL/min Random Glucose 115 H 70-105 mg/dL Uric Acid 4.4 2.6-7.2 mg/dL Total Calcium 8.5 8.5-10.1 mg/dL Phosphorus Level 4.3 2.5-4.9 mg/dL Magnesium Level 2.30 1.80-2.40 mg/dL Total Bilirubin 0.9 0.2-1.0 mg/dL Aspartate Amino Transf (AST/SGOT) 93 H 10-37 U/L Alanine Aminotransferase (ALT/SGPT) 106 H 12-78 U/L Alkaline Phosphatase 260 H 50-136 U/L Total Protein 7.0 6.0-8.3 g/dL Albumin 2.3 L 3.5-5.0 g/dL Thyroid Stimulating Hormone (TSH) 6.43 H 0.36-3.74 uIU/mL Bedside Glucose Comment Notified Nurse Coagulation Labs: Test 05/07/25 07:59 Range/Units Activated Partial Thromboplast Time 61.2 H 26.3-35.5 SEC DIAGNOSTICS / RADIOLOGY RESULTS: [ ] PLAN NEURO: Minimize central acting medications as possible. Maintain fall precautions, adequate lighting during the day PULMONARY: Supplemental 02 as needed. Maintain aspiration precautions at all times CARDIOVASCULAR: Follow hemodynamics. Vital signs per facility protocol GI & NUTRITION: Continue with nutritional support. Continue stool softeners and laxatives as needed. KIDNEYS & ELECTROLYTES: Strict monitoring of intake, output and overall fluid balance. Avoid nephrotoxic medications to the extent possible. Medications to be dosed according to renal function. Monitor electrolytes and replace as needed ENDOCRINE: Maintain blood glucose between 100-180 at all times. Hypoglycemia protocol in place INFECTIOUS DISEASE: Trend temperature, WBC and procalcitonin level Follow cultures, deescalate antibiotics as soon as possible. Panculture if new onset fever ONCOLOGY/HEMATOLOGY/COAGULATION: Monitor for s/s of bleeding Monitor hemoglobin, coagulation studies as needed SKIN: Pressure ulcer prevention per facility protocol Specialty mattress ORTHO/REHAB: Continue PT/OT Prophylaxis: Continue GI and DVT prophylaxis Code Status: Full Resuscitation Disposition: Per primary team ATTESTATION BY PHYSICIAN I have evaluated the patient chart, medical records, and spoke with appropriate staff. I reviewed the documentation, medical decision making, and treatment plan as noted by the mid-level provider above. I agree with the findings and plan of care. Sonny Jha MD, [facility] May 07, 2025 12:49
--- NOTE | 2025-05-07 17:30 | NUR ---
INFORMED CONSENT OBTAINED FOR PORT A CATH PROCEDURE TOMORROW
--- NOTE | 2025-05-07 20:00 | NUR ---
ASSESS SHIFT ASSESSMENT DONE, PLEASE REFER TO CHART. CALLED PHARMACIST, SPOKE WITH LORIE, INFORMED OF DELAY OF BLOOD DRAW DUE TO PT BEING A HARD STICK AND NEEDS MULTIPLE BLOOD DRAWS. PHARMACIST VERBALIZES NEED FOR VANCO THROUGH LEVEL BEFORE INFUSION. INSTRUCTED TO BE NPO POST MN FOR PORT PLACEMENT IN AM. PT VERBALIZES UNDERSTANDING.
--- NOTE | 2025-05-07 21:21 | NUR ---
PTT LAB RESULTS FOR PTT=52.2. PER PROTOCOL NO CHANGE NEEDED FOR HEPARIN DRIP. ORDERED NEXT PTT LEVEL IN 6 HOURS.
--- NOTE | 2025-05-07 21:55 | NUR ---
IMMIGRATION PATROL INSPECTOR PAGED IMMIGRATION PATROL INSPECTOR FEEDER SWITCHBOARD OPERATOR VIA ANSWERING SERVICE. KAITLIN MALDONADO CALLED BACK. INFORMED IMMIGRATION PATROL INSPECTOR THAT PT IS GOING FOR PORT A CATH PLACEMENT IN AM AND IS ON HEPARIN DRIP. IMMIGRATION PATROL INSPECTOR STATED TO KEEP HEPARIN DRIP ORDERED FOR NOW. NO FURTHER ORDERS GIVEN.
--- NOTE | 2025-05-07 22:35 | PN ---
INFECTIOUS DISEASE PROGRESS NOTE Date of Service: May 07, 2025 SUBJECTIVE: This is a 35-year-old male patient who was seen and examined at bedside in room 319. Patient is awake, alert and oriented x3. During visit today patient was having lunch and tolerating well. Patient is now on room air and saturating 93 to 94%. No fever, temperature is 98.1. Continues on Meropenem, fluconazole, and vancomycin per pharmacy protocol. No more rectal bleeding reported. The WBC still elevated at 18.2. Per report patient will possible undergo a Port A cath placement tomorrow. We will continue to monitor patient. PHYSICAL EXAM EYES: Anicteric. Pupils equal and reactive. HENT: No oral thrush seen, moist Oral mucosa. NECK: Supple, no JVD or thyromegaly. LUNGS: Diminished. Oxygen via nasal cannula. CARDIOVASCULAR: S1, S2 regular. No murmur heard. ABDOMEN: Abdomen is large but Soft, bowel sounds present. Left colostomy. CENTRAL NERVOUS SYSTEM: Awake, alert, oriented x 3. SKIN: No rashes, no swelling. LYMPHATICS: No peripheral lymphadenopathy. MUSCULOSKELETAL: Right knee pain. EXTREMITIES: No cyanosis or clubbing. Generalized weakness. BACK: No deformity, no pressure ulcer. GENITOURINARY: No dysuria or hematuria. Vital Sign (Last 12 Hours) 05/07/25 05/07/25 05/07/25 05/07/25 10:34 12:00 16:00 19:21 Temp 97.9 98.1 Pulse 95 111 80 Resp 19 19 19 B/P (MAP) 111/62 124/70 Pulse Ox 93 92 94 O2 Delivery Room Air* Room Air Room Air N/A Room Air O2 Flow Rate 0 FiO2 21 21 05/07/25 05/07/25 05/07/25 20:00 20:00 21:00 Temp 98.1 Pulse 111 104 Resp 20 20 B/P (MAP) 118/68 Pulse Ox 91 91 94 O2 Delivery Room Air Room Air* Room Air O2 Flow Rate 0 FiO2 21 Intake & Output (last 24hrs) 05/06/25 05/06/25 05/07/25 15:00 23:00 07:00 Intake Total 726.0 ml 1760.0 ml 1345.0 ml Output Total 1200 ml 100 ml 3200 ml Balance -474.0 ml 1660.0 ml -1855.0 ml LABS: Laboratory: Test 05/07/25 20:54 05/07/25 20:30 05/07/25 07:59 05/06/25 21:11 Range/Units Whole Blood Glucose 124 H 70-110 MG/DL Activated Partial Thromboplast Time 52.2 #H 26.3-35.5 SEC Vancomycin Level Trough 13.5 # 10.0-20.0 UG/ML White Blood Count 18.2 H 4.8-10.8 K/uL Red Blood Count 4.78 4.50-6.20 MIL/uL Hemoglobin 11.6 L 14.0-18.0 g/dL Hematocrit 37.2 L 42-54 % Mean Corpuscular Volume 77.8 L 79-99 fL Mean Corpuscular Hemoglobin 24.3 L 27.0-33.0 pg Mean Corpuscular Hemoglobin Concent 31.2 L 32.0-36.0 g/dL Red Cell Distribution Width 22.7 H 11.0-15.5 % Platelet Count 353 130-400 K/uL Mean Platelet Volume 10.1 7.5-10.5 fL Immature Granulocyte % (Auto) 3.6 H 0-1 % Neutrophils (%) (Auto) 73.4 40.0-77.0 % Lymphocytes (%) (Auto) 11.3 L 21.0-51.0 % Monocytes (%) (Auto) 11.1 3.0-13.0 % Eosinophils (%) (Auto) 0.2 0.0-8.0 % Basophils (%) (Auto) 0.4 0.0-5.0 % Neutrophils # (Auto) 13.4 H 1.8-7.7 K/uL Lymphocytes # (Auto) 2.1 1.0-4.8 K/uL Monocytes # (Auto) 2.0 H 0.1-1.0 K/uL Eosinophils # (Auto) 0.03 0.00-0.70 K/uL Basophils # (Auto) 0.07 0.00-0.20 K/uL Absolute Immature Granulocyte (auto 0.66 0-1 K/uL Nucleated Red Blood Cells 0.0 0.0-0.19 % Sodium Level 128 L 136-145 mmol/L Potassium Level 4.7 3.5-5.1 mmol/L Chloride Level 95 L 101-111 mmol/L Carbon Dioxide Level 30 21-32 mmol/L Blood Urea Nitrogen 36 H 7-18 mg/dL Creatinine 0.7 0.5-1.3 mg/dL Glomerular Filtration Rate Calc 123 >90 mL/min Random Glucose 115 H 70-105 mg/dL Uric Acid 4.4 2.6-7.2 mg/dL Total Calcium 8.5 8.5-10.1 mg/dL Phosphorus Level 4.3 2.5-4.9 mg/dL Magnesium Level 2.30 1.80-2.40 mg/dL Total Bilirubin 0.9 0.2-1.0 mg/dL Aspartate Amino Transf (AST/SGOT) 93 H 10-37 U/L Alanine Aminotransferase (ALT/SGPT) 106 H 12-78 U/L Alkaline Phosphatase 260 H 50-136 U/L Total Protein 7.0 6.0-8.3 g/dL Albumin 2.3 L 3.5-5.0 g/dL Thyroid Stimulating Hormone (TSH) 6.43 H 0.36-3.74 uIU/mL Bedside Glucose Comment Notified Nurse Test 05/06/25 17:45 05/06/25 06:36 Range/Units Urine Color YELLOW YELLOW Urine Appearance CLEAR CLEAR Urine pH 6.5 5.0-8.0 Urine Specific [place] 1.024 1.001-1.031 Urine Protein 20 H NEGATIVE mg/dL Urine Glucose (UA) NEGATIVE NEGATIVE mg/dL Urine Ketones NEGATIVE NEGATIVE mg/dL Urine Occult Blood NEGATIVE NEGATIVE Urine Nitrate NEGATIVE NEGATIVE Urine Bilirubin NEGATIVE NEGATIVE mg/dL Urine Urobilinogen 0.2 0.2-1.0 mg/dL Urine Leukocyte Esterase NEGATIVE NEGATIVE Kelly/uL Urine RBC 0-1 0-1 /HPF Urine WBC 0-1 0-1 /HPF Urine Squamous Epithelial Cells RARE 0-2 /HPF Urine Bacteria None None Seen /HPF Urine Random Creatinine 63.32 30-135 mg/dL Urine Random Sodium 87 40-220 mmol/l Urine Random Potassium 24 L 25-125 mmol/L Urine Random Chloride 35 L 110-250 mmol/L Segmented Neutrophils % 84 H 40-70 % Band Neutrophils % 2 0-2 % Lymphocytes % (Manual) 6 L 22-44 % Monocytes % (Manual) 6 2-9 % Differential Comment MANUAL DIFFERENTIAL Reactive Lymphocytes 2 H 0-0 % White Cell Morphology Comment TOXIC GRANULATION 2+ Platelet Morphology Comment ADEQUATE Red Blood Cell Morphology See comments ASSESSMENT: Hypoxic respiratory failure, requiring oxygen support. Staphylococcus epidermidis bacteremia, which is a contaminant. Leukocytosis. Right knee osteoarthritis. Bilateral pulmonary nodules consistent with metastatic disease, s/p lung biopsy. Small-bowel obstruction, resolved. Acute renal failure, resolved. Morbid obesity. Recent Colorectal mass with resection and colostomy creation. Right upper extremity DVT. Debility. PLAN: Continue Meropenem. Continue fluconazole.. Continue vancomycin per pharmacy protocol. Continues on heparin drip. Continue oxygen support. Continue GI prophylaxis. Continue pain management. Monitor for bleeding. Continue physical therapy. Continue on Clinimix. Possible Por A cath placement for tomorrow. This case was reviewed and discussed with my supervising physician Dr. Richards and the above assessment and plan was formulated and agreed upon. ATTESTATION BY PHYSICIAN I have seen and examined the patient. I reviewed the documentation, medical decision making, and treatment plan as noted by the mid-level provider above. I agree with the findings and plan of care. JULIANNA RICHARDS MD, [facility] May 07, 2025 22:35
[2025-05-08] VITALS (19 sets, daily range): BP systolic 103–131; BP diastolic 53–80; PULSE 80–124; RESP 18–23; TEMP 97.4–98.7; O2SAT 92–100
[2025-05-08 02:05] LABS: NUCLEATED RED BLOOD CELLS 0.0 % (0.0-0.19); PLATELET COUNT (AUTO) 378 K/uL (130-400); RED BLOOD CELL COUNT(AUTO) 4.90 MIL/uL (4.50-6.20); RED CELL DISTRIBUTION WIDTH 23.3 % (11.0-15.5); WHITE BLOOD COUNT (AUTO) 21.5 K/uL (4.8-10.8)
[2025-05-08 02:19] LABS: ASPARTATE AMINOTRANSFERASE 82.0 U/L (10-37); CREATININE 0.8 mg/dL (0.5-1.3); GLOMERULAR FILTR. RATE CALC 118.0 mL/min (>90); GLUCOSE,RANDOM 130.0 mg/dL (70-105); PHOSPHORUS 4.2 mg/dL (2.5-4.9); SODIUM SERUM 130.0 mmol/L (136-145); TOTAL PROTEIN, SERUM 7.2 g/dL (6.0-8.3); UREA NITROGEN, BLOOD 34.0 mg/dL (7-18)
--- NOTE | 2025-05-08 02:24 | NUR ---
PTT PTT LEVEL= 65.2. NO CHANGE ON HEPARIN DRIP PER PROTOCOL. CHECKED AND WITNESSED WITH HERLINDA BALDERAS.
[2025-05-08 02:33] LABS: LYMPHOCYTES % (MANUAL) 12 % (22-44); MONOCYTES % (MANUAL) 7 % (2-9); SEGMENTED NEUTROPHILS % 81 % (40-70)
[2025-05-08 02:34] LABS: MAN.DIFF COMMENT-IMPRESSION MANUAL DIFFERENTIAL; PLATELET MORPHOLOGY COMMENT ADEQUATE
--- NOTE | 2025-05-08 05:36 | NUR ---
MEDS PT ALREADY AWAKE AND WANTS CPAP MASK OFF. REMOVED PER PT REQUEST. DUE MEDS ADMINISTERED, TOLERATED WELL. KEPT NPO FOR PROCEDURE. KEPT COMFORTABLE IN BED. CALL LIGHT WITHIN REACH. FOR MORE CARE.
[2025-05-08] MEDS: VANCOMYCIN 1G/250ML KIT 250 ML IV SCH (07:59)
[2025-05-08 09:21] LABS: INR 1.09 (0.85-1.15)
--- NOTE | 2025-05-08 10:39 | PN ---
[facility] PROGRESS NOTE Date Patient Seen: May 08, 2025 Time of Visit: 10:36 Supervising Physician: Mack Jha Inpatient Consults: Dr. Nguyen, Dr. Abad, Dr. Henry, Dr. Johnson PROBLEM LIST: Severe sepsis with MODS, resolving Leukocytosis Staphylococcus epidermidis bacteremia, which is a contaminant. Status post left rib biopsy by IR on 04/26/2025 New right upper lobe spiculated infiltrative mass measuring 5.4 x 4.6 cm infiltrating mediastinal pleura and albumin in the right main pulmonary artery Bulky mediastinal lymphadenopathy with the largest node measuring 4 cm involving the right paratracheal, prevascular, and subcarinal stations Multiple bilateral spiculated pulmonary nodules consistent with metastatic dis ease progression (+) adenocarcinoma Stage IV Colorectal cancer with metastatic disease to the lung Bilateral marked diffuse adrenal enlargement likely metastatic or hyperplastic Left iliac fossa 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 deep venous thrombosis involving the right axillary vein and brachial veins INTERVAL HISTORY: 05/01 - Patient seen and examined, all labs and imaging have been reviewed, patient is awake alert and oriented, nursing reports no acute events overnight. Patient is afebrile, vital signs are stable, good sats on nasal cannula 2 L Patient continues on the cefepime, vanc and Flagyl, the last blood cultures positive for from the blood, staph on 04/21 Sputum is pending He continues on duo nebs He is on Lasix 20 mg and we have 520 of urine out in 12 hours Chest x-ray is pending 05/02 - Patient is seen and examined at the bedside. Pt is laying in bed resting quietly accompanied by his mom and other family members. Patient appears to be weak, deconditioned, and hypoxemic requiring 2 L via N/C. Patient continues utilizing Bipap nightly. Pt reports he uses a Cpap at home nightly. Patient continues on multiple broad spectrum antibiotics which are being managed by Dr Nguyen. Most recent cxray shows resolving left upper lung infiltrate. White count slowly trending down. Biopsy results are still pending. Patient continues on heparin drip for DVT. PT was evaluated by Dr Johnson and depending on Lung nodule biopsy results, will plan for genetic phenotyping for targeted therapy if feasible. Pt had a KUB performed which shows partial small bowel obstruction. As per nursing, surgery team has been made aware. Will continue to follow closely. 05/03 - Patient was seen and examined, patient is sitting at the side of the bed. Patient is just back from his small bowel pass through. He states that he has had numerous loose stools and is passing gas. He is hoping to resume his diet shortly. We are waiting on surgery's recommendations Patient is awake alert and oriented reporting no pain or discomfort Good saturations on room air His vital signs are stable We ordered new cultures he continues on Merrem fluconazole and vancomycin 05/04 - patient is seen in the evaluated at the bedside. Patient is sitting up in bed accompanied by his mom. Patient appears to be weak, deconditioned and hypoxemic currently requiring2 L via nasal cannula. Patient continues using a CPAP nightly. Patient remains NPO as suspected small bowel obstruction. Patient had a small bowel series and currently pending official results. Patient does report continues with large watery stools. Patient reports he is hungry in hope to resume his diet soon. Follow surgery recommendations. As per Dr. Johnson's note, patient has stage IV colorectal cancer with metastatic disease to the lungs. Pathology is consistent with moderately differentiated adenocarcinoma. Patient is advised on the importance of getting up out of bed and attempting to work with physical therapy as tolerated. Prognosis remains guarded. Patient continues on broad-spectrum antibiotics per Infectious Disease. White count trending down. 05/05 - patient is seen sitting up in bed continues to be weak, deconditioned hypoxemic requiring 2 L via nasal cannula. Patient continues utilizing his CPAP nightly. No acute changes reported overnight. Patient's small-bowel series shows resolving Gastrografin small-bowel follow-through with24 hour Gastrografin has rates sigmoid colon and transverse colon. Patient has been started on clear liquid diet and instructed to advance as tolerated per surgical team. Patient continues on heparin drip for right upper extremity DVT. Patient continues on multiple broad-spectrum antibiotics as per Infectious Disease. Patient is being followed closely by Oncology. Patient advised to get out of bed and work with physical therapy as tolerated. 05/06-seen and examined the patient while resting in bed with the head of the bed elevated patient has limited mobility, awake alert and oriented in no acute distress with family members present. Reviewed and discussed with family members the patient's assessment condition patient is not short of breath, is not presenting in acute hypoxic respiratory failure, and denies shortness of breath, fever, chills, nauseousness, constipation, and diarrhea currently. Hemodynamically stable. Afebrile a.m. labs have been ordered. Reviewed and discussed with family members diagnostic tests results, vital signs, and laboratory results. 05/07 - patient is seen and evaluated at the bedside. Patient is lying in bed resting quietly accompanied by his mom. Patient is awake alert and oriented x3. Patient with no signs of acute distress. Patient remains on room air denies chest discomfort, chest pain or dyspnea. Patient does appear to be very weak and reports he has not been able to ambulate yet. Patient does sitting at the bedside however still very weak. Patient diet has been advanced and so far tolerating well, with no nausea, vomiting or abdominal pain. Patient reports his last bowel movement was yesterday. Mom reports patient is scheduled for a Port-A-Cath placement tomorrow. Vital signs are stable. 05/08 - patient is seen lying in bed resting quietly with no signs of acute distress. Patient with no signs of acute respiratory distress during my evaluation. Patient is awake alert and oriented x3. patient remains on room air denies chest discomfort, chest pain or dyspnea. No acute changes reported overnight. Patient does continue to be very weak and deconditioned and unable to ambulate. Patient advised to continue working with physical therapy as tolerated. As per nursing, patient is scheduled for Port-A-Cath placement today. From respiratory standpoint, patient is stable. Vital signs are stable. Labs do show patient continues with leukocytosis. Patient continues on broad- spectrum antibiotics as per Infectious Disease. We will continue to follow with you. PLAN Supplemental oxygen as needed Wean off as tolerated Continue CPAP nightly and p.r.n. Continue diet as per sx team Follow surgical team recs Continue antibiotics as per Infectious Disease Follow up Dr. Johnson recommendations Pending port a cath placement today REVIEW OF SYSTEMS: 12 point ROS reviewed with patient. Pertinent positives mentioned above. Otherwise negative. PHYSICAL EXAM: GENERAL: alert, obese, weak, awake oriented x 3 HEENT: EOMI, Sclera non icteric, moist mucosa NC NECK: Supple, no JVD, trachea midline LUNGS: Diminished breath sounds bilaterally. No wheezes HEART: Normal rate and rhythm. Normal S1 and S2, without murmurs ABD: morbidly obese Abdomen soft, nontender. Bowel sounds hypoactive EXT: No clubbing cyanosis or edema NEURO: Alert and oriented to person, follows commands Vital Signs (last 8hr) Date Time Temp Pulse Resp B/P (MAP) Pulse Ox O2 Delivery O2 Flow Rate FiO2 05/08/25 08:00 98.8 103 22 115/67 92 Room Air 05/08/25 07:31 84 18 N/A Room Air 21 05/08/25 04:00 98.1 104 20 127/71 96 Room Air LABS: Hematology Labs: Test 05/08/25 01:59 05/07/25 07:59 Range/Units White Blood Count 21.5 H 4.8-10.8 K/uL Red Blood Count 4.90 4.50-6.20 MIL/uL Hemoglobin 12.1 L 14.0-18.0 g/dL Hematocrit 38.0 L 42-54 % Mean Corpuscular Volume 77.6 L 79-99 fL Mean Corpuscular Hemoglobin 24.7 L 27.0-33.0 pg Mean Corpuscular Hemoglobin Concent 31.8 L 32.0-36.0 g/dL Red Cell Distribution Width 23.3 H 11.0-15.5 % Platelet Count 378 130-400 K/uL Mean Platelet Volume 10.4 7.5-10.5 fL Segmented Neutrophils % 81 H 40-70 % Lymphocytes % (Manual) 12 L 22-44 % Monocytes % (Manual) 7 2-9 % Nucleated Red Blood Cells 0.0 0.0-0.19 % Differential Comment MANUAL DIFFERENTIAL White Cell Morphology Comment Platelet Morphology Comment ADEQUATE Red Blood Cell Morphology See comments Immature Granulocyte % (Auto) 3.6 H 0-1 % Neutrophils (%) (Auto) 73.4 40.0-77.0 % Lymphocytes (%) (Auto) 11.3 L 21.0-51.0 % Monocytes (%) (Auto) 11.1 3.0-13.0 % Eosinophils (%) (Auto) 0.2 0.0-8.0 % Basophils (%) (Auto) 0.4 0.0-5.0 % Neutrophils # (Auto) 13.4 H 1.8-7.7 K/uL Lymphocytes # (Auto) 2.1 1.0-4.8 K/uL Monocytes # (Auto) 2.0 H 0.1-1.0 K/uL Eosinophils # (Auto) 0.03 0.00-0.70 K/uL Basophils # (Auto) 0.07 0.00-0.20 K/uL Absolute Immature Granulocyte (auto 0.66 0-1 K/uL Chemistry Labs: Test 05/08/25 01:59 05/07/25 20:54 05/07/25 07:59 05/06/25 21:11 Range/Units Sodium Level 130 L 136-145 mmol/L Potassium Level 4.1 3.5-5.1 mmol/L Chloride Level 94 L 101-111 mmol/L Carbon Dioxide Level 31 21-32 mmol/L Blood Urea Nitrogen 34 H 7-18 mg/dL Creatinine 0.8 0.5-1.3 mg/dL Glomerular Filtration Rate Calc 118 >90 mL/min Random Glucose 130 H 70-105 mg/dL Total Calcium 8.5 8.5-10.1 mg/dL Phosphorus Level 4.2 2.5-4.9 mg/dL Magnesium Level 2.00 1.80-2.40 mg/dL Total Bilirubin 1.1 #H 0.2-1.0 mg/dL Aspartate Amino Transf (AST/SGOT) 82 H 10-37 U/L Alanine Aminotransferase (ALT/SGPT) 104 H 12-78 U/L Alkaline Phosphatase 308 H 50-136 U/L Total Protein 7.2 6.0-8.3 g/dL Albumin 2.3 L 3.5-5.0 g/dL Whole Blood Glucose 124 H 70-110 MG/DL Uric Acid 4.4 2.6-7.2 mg/dL Thyroid Stimulating Hormone (TSH) 6.43 H 0.36-3.74 uIU/mL Bedside Glucose Comment Notified Nurse Coagulation Labs: Test 05/08/25 08:50 Range/Units Prothrombin Time 11.5 9.6-11.6 SEC Prothromb Time International Ratio 1.09 0.85-1.15 Activated Partial Thromboplast Time 70.1 H 26.3-35.5 SEC DIAGNOSTICS / RADIOLOGY RESULTS: [ ] PLAN NEURO: Minimize central acting medications as possible. Maintain fall precautions, adequate lighting during the day PULMONARY: Supplemental 02 as needed. Maintain aspiration precautions at all times CARDIOVASCULAR: Follow hemodynamics. Vital signs per facility protocol GI & NUTRITION: Continue with nutritional support. Continue stool softeners and laxatives as needed. KIDNEYS & ELECTROLYTES: Strict monitoring of intake, output and overall fluid balance. Avoid nephrotoxic medications to the extent possible. Medications to be dosed according to renal function. Monitor electrolytes and replace as needed ENDOCRINE: Maintain blood glucose between 100-180 at all times. Hypoglycemia protocol in place INFECTIOUS DISEASE: Trend temperature, WBC and procalcitonin level Follow cultures, deescalate antibiotics as soon as possible. Panculture if new onset fever ONCOLOGY/HEMATOLOGY/COAGULATION: Monitor for s/s of bleeding Monitor hemoglobin, coagulation studies as needed SKIN: Pressure ulcer prevention per facility protocol Specialty mattress ORTHO/REHAB: Continue PT/OT Prophylaxis: Continue GI and DVT prophylaxis Code Status: Full Resuscitation Disposition: Per primary team ATTESTATION BY PHYSICIAN I have evaluated the patient chart, medical records, and spoke with appropriate staff. I reviewed the documentation, medical decision making, and treatment plan as noted by the mid-level provider above. I agree with the findings and plan of care. Sonny Jha MD, [facility] May 08, 2025 10:39
--- NOTE | 2025-05-08 12:37 | PN ---
[facility] PROGRESS NOTE Date of Service: May 08, 2025 Time of Service: 12:37 SUBJECTIVE: 04/20 the patient has been seen and examined at bedside, case discussed with the RN, no acute events overnight, the time of my visit, the patient is awake, following commands, blood pressure 140/90, afebrile, saturating normal on room air. The patient is morbidly obese, he uses a CPAP at home, currently CPAP at bedside during my visit. WBC 14.0, hemoglobin 10.4, hematocrit 34.8, platelet count of 305. CMP shows sodium 141, potassium 3.5, BUN 70, creatinine 0.9, iron level of 25. X-ray of the knee showing moderate to severe three, power mental right knee osteoarthritis, predominantly in the lateral compartment, with small joint effusion. No acute fracture. Orthopedic physician consultation requested, we will follow input and recommendation. MRI of the right knee requested, however due to morbid obesity, might not be able to do it. Discussed with the mother is at the bedside, all questions answered, in agreement. 04/21 patient has been seen and examined at bedside, case discussed with the RN, no acute events overnight, the time my visit he is awake, following commands, admits mild dry nonproductive cough, spiked fever 102.6. Denied chest pain, shortness shortness for breath, no nausea, no vomiting, no abdominal discomfort. The patient has a colostomy bag, on examination, liquid stool noted. WBC slowly trending down at 12.7, hemoglobin stable 11.6. Magnesium 1.7. Added doxycycline 100 mg IV q.12 hours. Follow serology to include SARS antigen, influenza and rapid strep. We will give magnesium sulfate 2 g IV x1. We will order GI stool panel. Patient is scheduled for MRI to the right knee today, continue lidocaine patch, discussed with the orthopedic physician today, we will follow input and recommendation. 04/22 patient is seen and examined at bedside, discussed with the RN. Patient currently feels nauseated. He admits mild discomfort to the right lower quadrant. BP 135/77, mildly tachycardic at 108, saturating normal on room air. Maximum temperature last 24 hours 102.7. CBC shows a hemoglobin of 11.6, hematocrit 35.7, platelet count of 276, with a platelet count of 23.8. Creatinine 2.1. MRI of the right knee shows tricompartmental osteoarthritis with osteophytosis and diffuse cartilage loss, medial and lateral meniscal with complex degenerative tear involving posterior horns and bodies, meniscal tear severity grade 3, full-thickness chondral defect of the lateral femoral condyle, with a underlying subchondral edema, small reactive joint effusion with mild synovitis. We will upgraded the patient to the PCU, LR at 50 mL/hours, follow repeat CBC, CMP and magnesium level. Continue Rocephin and doxycycline IV. We will order a CT of the abdomen and pelvis without contrast to rule out intra- abdominal acute pathology. Orthopedic input noted and appreciated, patient with bad arthritis, we will finally benefit from knee replacement, however considering his morbid obesity, it is not indicated right now. Recommended co nservative approach. Mother at bedside, all questions answered, updated, in agreement with plan of care. 04/23 patient is seen and examined at bedside, discussed with the RN, no acute events overnight, patient upgraded to the ICU yesterday due to sepsis and developing small bowel obstruction. Today the patient is awake, following commands, he is NPO, NG tube to intermittent suction, BP 120/76, heart rate of 111, saturating 96% 3 L nasal cannula, temperature 98.4. WBC of 27.6, hemoglobin 10.6, hematocrit 35.5, platelet count 240, creatinine improved to 1.2. Septic workup with blood culture positive for Staphylococcus epidermidis. Echocardiogram and chest x-ray pending. Patient will remain admitted to the ICU, continue broad-spectrum IV antibiotics, we will follow surgical input recommendation. Continue to follow critical Care and ID input and recommendation. And we will update the mother regarding results of CT of the abdomen pelvis and further plan of care when she is present in the room. CT abdomen and pelvis reviewed, as follows: * Patient is undergoing mass evaluation. * Interval progression since 22 April 2025 with a new right upper lobe spiculated infiltrative mass measuring 5.4 ??? 4.6 cm infiltrating mediastinal pleura and abutting the right main pulmonary artery. * Bulky mediastinal lymphadenopathy with largest node measuring 4 cm, involving right paratracheal, prevascular, precarinal, and subcarinal stations, increased since prior study. * Multiple bilateral spiculated pulmonary nodules (1???2.5 cm), consistent with metastatic disease progression. * Bilateral marked diffuse adrenal enlargement (Right 5.9 ??? 3.6 cm, Left 7.6 ??? 5.4 cm), likely metastatic or hyperplastic. 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 * Degenerative thoracolumbar spondylosis with L4 vertebral body wedging (30???40% height loss), unchanged. * Comparison is made with the exam dated 22 April 2025. Overall findings indicate worsening metastatic disease with new primary and gloria lesions and mechanical bowel obstruction requiring clinical and surgical correlation. Recommendations include oncologic evaluation and PET-CT staging, alongside urgent surgical consultation for bowel obstruction. 04/24 patient is seen and examined at bedside, discussed with the RN, no acute events overnight, patient downgraded from the ICU to the PCU, he remains NPO, NG tube connected to intermittent suction, output in the last 12 hours 200 mL. BP 146/150, heart rate of 101, afebrile, saturating 96-97% on nasal cannula. CBC shows a hemoglobin of 9.9, hematocrit 33.5, platelet count of 235, with WBC of 21.3. CMP with sodium 146, potassium 3.8, BUN of 18, creatinine 0.9, magnesium 1.8. Blood culture 04/21/2025 positive for Staphylococcus epidermidis. Repeat blood cultures 04/23/2025 no growth after 24 hours echocardiogram 04/23/2025 LVEF 50-55%, no left ventricle thrombus, no intracardiac masses, no valvular vegetations. Today chest x-ray pending. Patient will remain admitted to the PCU, NPO, intermittent suction, continue to follow surgical input recommendation, continue broad-spectrum IV antibiotics, follow WBC in a.m.. Follow KUB. I HAVE CONTACTED THE DEPARTMENT OF MEDICAL RECORDS [facility] [place], SPOKE WITH ZENA AT PHONE NUMBER [phone], I HAVE REQUESTED MEDICAL RECORDS. WE WILL FOLLOW UP. 04/25 patient is seen and examined at bedside, case discussed with the RN, no acute events overnight, he remains comfortably in bed, NPO, NG tube to intermittent suction, he is awake, following commands, BP 128/90, area of 101, afebrile. Still feels distended. On examination colostomy bag, enema output noted. KUB pending. KUB from 04/24/2025 showing markedly dilated small bowel loops up to 5.6 cm, consistent with distal small-bowel obstruction, no pneumoperitoneum, pneumatosis intestinalis or portal venous gas. I received medical records from [facility], patient was admitted on 11/19/2024 and discharged 12/08/2024. Areolar in the hospital patient underwent exploratory laparoscopy, laparotomy and creation of transverse loop colostomy 11/28/2024. Patient was evaluated by oncologist Braulio Bell. 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 Per my discussion with the mother, from [facility] the patient was discharged to [facility] to recover and from there he went home. Patient has not had a follow up appointment with the general surgeon or oncologist after that. We have requested Oncology consultation here during this admission. Pathology report from rectal biopsy shows moderately differentiated adenocarcinoma, then new pulmonary nodules and mediastinal lymphadenopathy as per CT scan indicates the possibility of metastatic disease. CEA is [id number]. Re quested pulmonary nodule biopsy by IR. Patient will remain admitted to the PCU, we will continue NG tube to intermittent suction, NPO, TPN, follow surgical input and recommendation. Follow repeat KUB. Mother at bedside, updated, all questions answered. Plan of care discussed with the patient as well, in agreement. 04/26 patient is seen and examined at bedside, discussed with the RN, no acute events overnight, patient is status post CT-guided biopsy of left anterior rib mass, 04/26/2025, tolerated the procedure well. At the time of my visit, he is awake, following commands, denied chest pain, shortness shortness for breath, no nausea, no vomiting. Colostomy bag full of air. No stool or liquid noted. Plan is for the patient to start clear liquid diet and advanced as tolerated. We will follow results of pathology. Continue to follow a.m. labs. Mother at bedside, updated. 04/27 patient is seen and, discussed with the RN, no acute events overnight, alert oriented x3, tolerating clear liquid diet. Passing gas in the colostomy bag but no bowel movement yet. Patient was swollen to the right upper extremity. Doppler showing deep venous thrombosis involving the right axillary vein and brachial veins, nonocclusive thrombosis of the right cephalic vein (superficial venous thrombosis). Correlate clinically for pulmonary embolism risk. Hemoglobin of 10.4, hematocrit 35.9, platelet count of 18.7. Findings of Doppler discussed with the mother, we will start the patient on heparin drip, risks versus benefits discussed, agreed to proceed with the anticoagulation. We will insert midline in the left upper extremity. We will continue to clinically monitor the patient.status post CT-guided biopsy of left anterior rib mass, 04/26/2025, follow up pathology. Continue to follow oncology input and recommendation. 04/28 patient is seen and, discussed with the RN, no acute events overnight, alert oriented x3, remains admitted to the PCU, alert oriented x3 at the time of my visit, tolerating soft diet, passing gas but no BM yet. Doppler showing deep venous thrombosis involving the right axillary vein and brachial veins, nonocclusive thrombosis of the right cephalic vein (superficial venous th rombosis). Continue heparin drip. Oncology input noted and appreciated. Patient will need Port-A-Cath insertion before discharge home. status post CT- guided biopsy of left anterior rib mass, 04/26/2025, follow up pathology. Continue broad-spectrum IV antibiotics, trend WBC in a.m. per mother at bedside, updated. 04/29/25 The patient continue with Heparin drip given to DVT right axillary vein and brachial vein: will transition to po close to discharged. This patient will need Port-A-Cath insertion before discharge home. This patient need to be clear for Port-A-Cath insertion by infectious disease 04/30/25 patient is lying in bed primary nurse reports no events overnight. Patient we will have IR place Port-A-Cath tomorrow. Patient continues with broad-spectrum antibiotics continues heparin drip transitioned to p.o. post procedure. 05/01 patient is seen and, discussed with the RN, no acute events overnight, alert oriented x3, remains admitted to the PCU, alert oriented x3 at the time of my visit, tolerating soft diet, passing gas but no BM yet. Doppler showing deep venous thrombosis involving the right axillary vein and brachial veins, nonocclusive thrombosis of the right cephalic vein (superficial venous thrombosis). Continue heparin drip. Oncology input noted and appreciated. Patient will need Port-A-Cath insertion before discharge home. IR consultation requested. status post CT-guided biopsy of left anterior rib mass, 04/26/2025, follow up pathology. Continue broad-spectrum IV antibiotics, trend WBC in a.m. per mother at bedside, updated. On physical examination, only small liquid output from colostomy bag, no solid stool noted. Discussed with surgery, recommended small-bowel series. Continue to trend WBC in a.m.. Patient may require transfer to higher level of care, we will discuss with case management. 05/02 patient is seen and, discussed with the RN, no acute events overnight, alert oriented x3, remains admitted to the PCU, alert oriented x3 at the time of my visit, tolerating soft diet, passing gas. Colostomy bag on exam looks more full compared to yesterday however not solid stool yet. Discussed with the surgery yesterday, recommended small-bowel series, likely to be completed today, we will follow up. 05/03 patient is seen and examined at bedside, discussed with the RN, no acute events overnight, patient remains comfortably in bed, alert oriented x3, feels hungry, passing gas, liquid stool noted in colostomy bag, still pending to complete small-bowel series. Patient remains on heparin drip, swollen to the right upper extremity almost resolved. Denies pain to the right upper arm. Continue to follow a.m. labs. Oncology input noted and appreciated, biopsy consistent with adenocarcinoma. Patient has stage IV colorectal cancer with metastatic disease to the lung. Peripheral bloood smear shows microcytic hypochromic anemia consistent with iron deficiency anemia . There is teardrop cell, pelger huet cell and rouleaux formation .Increased number of WBCs observed with neutrophilia and hypersegmented neutrophils suggestive of underlying infection . Band cells observed. Platelet morphology and count within normal limits .Discussed with the mother at bedside, all questions answered. In agreement. 05/04 patient is seen and examined at bedside, discussed with the RN, no acute events overnight, patient remains comfortably in bed, alert oriented x3, small- bowel series done 05/02/2025, still pending report. Continue the patient on TPN . Mother at bedside, updated. Follow a.m. labs. 05/05 patient is seen and examined at bedside, discussed with the RN, no acute events overnight, during my visit comfortably in bed, alert oriented x3, on TPN, results of small-bowel series no evidence of obstruction, patient is started on clear liquid diet. We will advance to soft diet today. Mother and father at bedside during my visit, updated. Per the mother, she stated that the patient is still have pain on both knees on is trying to work with the physical therapist. We will start the patient on Toradol 15. mg IV every 6 hours as needed monitor renal function in a.m.. Continue to follow CBC in a.m. transfuse as needed. Hematology and ID input noted and appreciated. 05/06 patient is seen and examined at bedside, discussed with the RN, no acute events overnight, during my visit comfortably in bed, alert oriented x3, patient was started on full liquid diet yesterday, however had episode of vomiting. He is still on TPN. Today blood pressure 153/99, afebrile, saturating 97% 2 L nasal cannula. Hemoglobin 10.7, hematocrit 34.2, WBC 17.1. Sodium level 129, with a 4.6, BUN 32, creatinine 0.7, magnesium 2.3. We will keep the patient on clear liquid diet. We will discuss case with the General surgery. Hold TPN as the patient with a hyponatremia, also on Lasix 20 mg IV b.i.d.. Continue Reglan and dexamethasone IV. Encourage out of bed to chair. Follow a.m. labs. Mother at bedside, updated, all questions answered. 05/07 patient is seen and examined at bedside, discussed with the RN, no acute events overnight, during my visit comfortably in bed, alert oriented x3, patient is started on GI soft diet yesterday, tolerated well, no nausea, no vomiting, no abdominal discomfort. Sodium level 128, we will discontinue TPN. Continue to follow level in a.m.. Continue to encourage out of bed to chair. Physical therapy to evaluate the patient. Continue to follow oncology input recommendation terms of Port-A-Cath placement prior to discharge. Currently patient remains on heparin drip. Mother and father at bedside, updated, all questions answered. 05/08 patient is seen and examined at bedside, discussed with the RN, no acute events overnight, comfortably in bed, following commands, tolerating diet, no nausea, no vomiting, no abdominal discomfort. Patient is scheduled for Port-A-Cath placement today by IR. Continue broad-spectrum antibiotics, follow a.m. labs. REVIEW OF SYSTEMS CONSTITUTIONAL: Denies fevers, chills, or night sweats. No unintentional weight loss reported. NEUROLOGICAL: Denies headache, amaurosis fugax, motor weakness, sensory deficit, vertigo/spinning sensation, gait abnormalities, or tremors. ENT: No hearing loss, otalgia, otorrhea, rhinitis, rhinorrhea, hoarseness, or sore throat. CARDIOVASCULAR: Denies any exertional angina, dyspnea on exertion, orthopnea, paroxysmal nocturnal dyspnea, palpitations, life-threatening arrhythmias, claudication. PULMONARY: Denies any shortness of breath, cough, phlegm/sputum, hemoptysis, pleuritic chest pain. SLEEP: Denies morning headaches, daytime somnolence or napping. Denies difficulty falling asleep, staying asleep, waking from sleep. Denies knowledge of snoring. GASTROINTESTINAL: Denies any type of dysphagia to either liquids or solids. Denies nausea, vomiting, pyrosis, early satiety, abdominal pain, diarrhea, constipation, or changes in stool consistency or caliber. Denies coffee-ground emesis, hematemesis, hematochezia, or melanotic stools. GENITOURINARY: Denies frequency, urgency, nocturia, hematuria or incontinence (Storage/Irritative symptoms.) Low urinary stream, straining to void, urinary intermittency or hesitancy, splitting of the voiding stream, terminal dribbling. ENDOCRINOLOGIC: Denies polyuria, polydipsia, polyphagia or heat/cold intolerances. HEMATOLOGIC: Denies thrombophilia/previous clots, or coagulopathy/bleeding disorders. ONCOLOGIC: Denies personal history of malignancy. DERMATOLOGIC: Denies rashes or pruritus. PSYCHIATRIC: Denies any suicidal or homicidal ideation. Denies hallucinations. PHYSICAL EXAM GENERAL APPEARANCE: Patient awake, following commands, NG tube to intermittent suction. NEUROLOGICAL: Cranial nerves II-XII grossly intact. Motor is 5/5 in bilateral upper and lower extremities proximal to distal. No sensory deficits. HEENT: Face is symmetric. Pupils are equal and reactive. Extraocular movements are intact. NECK: Supple. No JVD. No thyromegaly. No submental, submandibular, pre- /postauricular, occipital or supraclavicular lymphadenopathy. CHEST: Normal chest expansion. No Telemetry. LUNGS: Absence of any rales, rhonchi or any wheezing. CARDIOVASCULAR: Regular. S1 and S2 normal. No appreciable rubs, murmurs or gallops. ABDOMEN: Liquid output colostomy bag noted. : Deferred. No Doe. EXTREMITIES: Mild swelling to the right knee area, lidocaine patch in place. SKIN: No skin breakdown. Vital Signs (last 8hr) Date Time Temp Pulse Resp B/P (MAP) Pulse Ox O2 Delivery O2 Flow Rate FiO2 05/08/25 12:00 97.9 113 21 112/65 95 Room Air 05/08/25 08:00 98.8 103 22 115/67 92 Room Air 05/08/25 07:31 84 18 N/A Room Air 21 LABS: Laboratory: Test 05/08/25 11:38 05/08/25 08:50 05/08/25 01:59 05/07/25 20:30 Range/Units Whole Blood Glucose 126 H 70-110 MG/DL Prothrombin Time 11.5 9.6-11.6 SEC Prothromb Time International Ratio 1.09 0.85-1.15 Activated Partial Thromboplast Time 70.1 H 26.3-35.5 SEC White Blood Count 21.5 H 4.8-10.8 K/uL Red Blood Count 4.90 4.50-6.20 MIL/uL Hemoglobin 12.1 L 14.0-18.0 g/dL Hematocrit 38.0 L 42-54 % Mean Corpuscular Volume 77.6 L 79-99 fL Mean Corpuscular Hemoglobin 24.7 L 27.0-33.0 pg Mean Corpuscular Hemoglobin Concent 31.8 L 32.0-36.0 g/dL Red Cell Distribution Width 23.3 H 11.0-15.5 % Platelet Count 378 130-400 K/uL Mean Platelet Volume 10.4 7.5-10.5 fL Segmented Neutrophils % 81 H 40-70 % Lymphocytes % (Manual) 12 L 22-44 % Monocytes % (Manual) 7 2-9 % Nucleated Red Blood Cells 0.0 0.0-0.19 % Differential Comment MANUAL DIFFERENTIAL White Cell Morphology Comment Platelet Morphology Comment ADEQUATE Red Blood Cell Morphology See comments Sodium Level 130 L 136-145 mmol/L Potassium Level 4.1 3.5-5.1 mmol/L Chloride Level 94 L 101-111 mmol/L Carbon Dioxide Level 31 21-32 mmol/L Blood Urea Nitrogen 34 H 7-18 mg/dL Creatinine 0.8 0.5-1.3 mg/dL Glomerular Filtration Rate Calc 118 >90 mL/min Random Glucose 130 H 70-105 mg/dL Total Calcium 8.5 8.5-10.1 mg/dL Phosphorus Level 4.2 2.5-4.9 mg/dL Magnesium Level 2.00 1.80-2.40 mg/dL Total Bilirubin 1.1 #H 0.2-1.0 mg/dL Aspartate Amino Transf (AST/SGOT) 82 H 10-37 U/L Alanine Aminotransferase (ALT/SGPT) 104 H 12-78 U/L Alkaline Phosphatase 308 H 50-136 U/L Total Protein 7.2 6.0-8.3 g/dL Albumin 2.3 L 3.5-5.0 g/dL Vancomycin Level Trough 13.5 # 10.0-20.0 UG/ML Test 05/07/25 07:59 05/06/25 21:11 05/06/25 17:45 Range/Units Immature Granulocyte % (Auto) 3.6 H 0-1 % Neutrophils (%) (Auto) 73.4 40.0-77.0 % Lymphocytes (%) (Auto) 11.3 L 21.0-51.0 % Monocytes (%) (Auto) 11.1 3.0-13.0 % Eosinophils (%) (Auto) 0.2 0.0-8.0 % Basophils (%) (Auto) 0.4 0.0-5.0 % Neutrophils # (Auto) 13.4 H 1.8-7.7 K/uL Lymphocytes # (Auto) 2.1 1.0-4.8 K/uL Monocytes # (Auto) 2.0 H 0.1-1.0 K/uL Eosinophils # (Auto) 0.03 0.00-0.70 K/uL Basophils # (Auto) 0.07 0.00-0.20 K/uL Absolute Immature Granulocyte (auto 0.66 0-1 K/uL Uric Acid 4.4 2.6-7.2 mg/dL Thyroid Stimulating Hormone (TSH) 6.43 H 0.36-3.74 uIU/mL Bedside Glucose Comment Notified Nurse Urine Color YELLOW YELLOW Urine Appearance CLEAR CLEAR Urine pH 6.5 5.0-8.0 Urine Specific Shirley 1.024 1.001-1.031 Urine Protein 20 H NEGATIVE mg/dL Urine Glucose (UA) NEGATIVE NEGATIVE mg/dL Urine Ketones NEGATIVE NEGATIVE mg/dL Urine Occult Blood NEGATIVE NEGATIVE Urine Nitrate NEGATIVE NEGATIVE Urine Bilirubin NEGATIVE NEGATIVE mg/dL Urine Urobilinogen 0.2 0.2-1.0 mg/dL Urine Leukocyte Esterase NEGATIVE NEGATIVE Kelly/uL Urine RBC 0-1 0-1 /HPF Urine WBC 0-1 0-1 /HPF Urine Squamous Epithelial Cells RARE 0-2 /HPF Urine Bacteria None None Seen /HPF Urine Random Creatinine 63.32 30-135 mg/dL Urine Random Sodium 87 40-220 mmol/l Urine Random Potassium 24 L 25-125 mmol/L Urine Random Chloride 35 L 110-250 mmol/L Current Medications Medications (Trade) Dose Ordered Sig/Checo Route PRN Reason Start Time Stop Time Status Last Admin Dose Admin Acetaminophen (TYLenol 325MG TAB) 650 mg Q6H PRN PO FEVER/pain 1-3 04/19/25 22:00 05/19/25 21:59 05/05/25 11:49 650 MG Benzocaine (Cepacol Sore Throat Lozenge) 1 each Q4H PRN MM SORE THROAT 05/06/25 11:30 06/05/25 11:29 05/07/25 08:43 1 EACH Benzonatate (Tessalon 100mg Caps) 100 mg Q8H PRN PO COUGH 05/03/25 11:00 06/02/25 10:59 05/03/25 11:32 100 MG Cefepime HCl (MAXipime 2 gm vial) 2 gm Q8H IVPB 04/22/25 13:00 04/30/25 13:07 DC 04/30/25 04:27 2 GM Cefepime HCl (MAXipime 2 gm vial) 2 gm Q8H IVPB 04/30/25 16:00 05/01/25 12:05 DC 05/01/25 00:34 2 GM Ceftriaxone Sodium (ROCEphine 1G INJ) 1 gm Q24H IVPB 04/20/25 10:00 04/22/25 12:41 DC 04/22/25 10:53 1 GM Dexamethasone Sodium Phosphate (dexaMETHasone 4MG/ML 1ML VIAL) 10 mg Q24H IV 05/01/25 17:00 05/02/25 09:13 DC 05/01/25 17:22 10 MG Dexamethasone Sodium Phosphate (dexaMETHasone 10MG/ML 1ML VIAL) 10 mg Q24H IV 05/02/25 17:00 05/06/25 11:21 DC 05/05/25 17:42 10 MG Dextrose 1,000 ml @ 50 mls/hr Q20H IV 04/25/25 08:00 04/25/25 16:53 DC 04/25/25 10:38 100 MLS/HR Doxycycline Hyclate 250 ml @ 125 mls/hr Q12H IV 04/21/25 08:30 04/22/25 12:41 DC 04/22/25 08:14 125 MLS/HR Enoxaparin Sodium (Lovenox) 40 mg DAILY SQ 04/20/25 09:00 04/22/25 20:00 DC 04/22/25 08:14 40 MG Enoxaparin Sodium (Lovenox) 40 mg Q12H SQ 04/22/25 21:00 04/27/25 13:24 DC 04/27/25 08:10 40 MG Famotidine (Pepcid 20mg Vial) 20 mg BID IV 05/02/25 21:00 05/06/25 11:27 DC 05/06/25 09:13 20 MG Famotidine (Pepcid 20mg Tab) 20 mg DAILY PO 04/20/25 09:00 05/02/25 12:03 DC 04/30/25 09:23 20 MG Fluconazole (DiFLUCan 100 mg TAB) 200 mg Q24H PO 05/01/25 12:30 05/02/25 12:03 DC Fluconazole/ Sodium Chloride (DiFLUCan 200 MG/ NS 100 ML) 200 mg Q24H IVPB 05/02/25 12:00 06/01/25 11:59 05/08/25 11:17 200 MG Furosemide (LASix 20MG VIAL) 20 mg Q12H IV 04/29/25 11:00 05/29/25 10:59 05/08/25 10:06 20 MG Furosemide (LASix 20MG VIAL) 20 mg Q8H IV 04/24/25 19:00 04/25/25 03:01 DC 04/25/25 03:06 20 MG Heparin Sodium (Porcine) (HEParin 5,000 UNIT VIAL) *calculation based on ACTUAL B... AD PRN IV HEPARIN PROTOCOL 04/27/25 14:00 05/27/25 13:59 05/06/25 07:49 10,000 UNIT Heparin Sodium/ Dextrose 250 ml @ 0 mls/hr Q6H IV 04/27/25 14:00 05/27/25 13:59 05/08/25 10:11 21.87 MLS/HR Hydralazine HCl (APRESOLine 20MG INJ) 5 mg Q6H PRN IV For:SBP above 160;DBP above 90 04/20/25 16:00 05/20/25 15:59 Hydralazine HCl (APRESOLine 20MG INJ) 10 mg Q6H PRN IV For:SBP above 160;DBP above 90 04/19/25 22:00 04/20/25 10:52 DC Hydromorphone HCl (DiLAUDid 0.5MG INJ) 0.5 mg Q4H PRN IVP SEVERE PAIN (7-10) 04/22/25 20:00 04/27/25 19:59 DC Ipratropium Proctor (AtrovENT UD) 0.5 MG Q6H PRN IH SHORTNESS OF BREATH 04/28/25 19:30 05/28/25 19:29 04/29/25 11:10 0.5 MG Iron Sucrose (VenoFER) 200 mg DAILY IV 04/26/25 09:00 04/28/25 11:00 DC 04/28/25 09:20 200 MG Ketorolac Tromethamine (toRADol) 15 mg Q6H PRN IM MODERATE PAIN (4-6) 04/30/25 11:30 05/05/25 11:29 DC 05/03/25 14:33 15 MG Ketorolac Tromethamine (toRADol) 15 mg Q6H PRN IV MODERATE PAIN (4-6) 04/20/25 11:00 04/22/25 19:58 DC 04/20/25 22:08 15 MG Ketorolac Tromethamine (toRADol) 15 mg Q6H PRN IV MODERATE PAIN (4-6) 05/05/25 14:30 05/10/25 14:29 05/08/25 11:17 15 MG Labetalol HCl (TRANdate 20MG SYG) 10 mg Q6H PRN IV SUSTAINED HR >120 04/23/25 00:00 05/23/25 00:00 Lactated Ringer's 1,000 ml @ 50 mls/hr Q20H IV 04/21/25 12:30 04/25/25 07:47 DC 04/24/25 02:58 75 MLS/HR Lactated Ringer's 1,000 ml @ 100 mls/hr Q10H IV 04/19/25 22:00 04/20/25 10:52 DC 04/21/25 12:40 100 MLS/HR Lactulose (Constulose 20gm/ 30ml Udcup) 20 gm ACHS PRN PO CONSTIPATION 04/29/25 20:00 04/30/25 13:06 DC 04/30/25 09:33 20 GM Lactulose (Constulose 20gm/ 30ml Udcup) 20 gm BID PRN PO CONSTIPATION 04/19/25 22:00 04/29/25 19:41 DC Lactulose (Constulose 20gm/ 30ml Udcup) 20 gm Q6HWA PRN PO CONSTIPATION 04/30/25 13:00 05/30/25 12:59 Lidocaine (Lidocaine Patch 4%) 1 each DAILY TP 04/21/25 09:00 05/21/25 08:59 05/08/25 07:59 1 EACH Magnesium Sulfate 50 ml @ 0 mls/hr PROTOCOL IV 04/21/25 08:30 05/21/25 08:29 04/24/25 06:11 25 MLS/HR Meropenem (Merrem 1gm) 1 gm Q8H IVPB 05/01/25 12:30 05/02/25 12:29 DC 05/02/25 04:15 1 GM Meropenem (Merrem 1gm) 1 gm Q8H IVPB 05/04/25 16:30 05/14/25 16:29 05/08/25 07:59 1 GM Metoclopramide HCl (regLAN 10MG IV) 10 mg Q6H6 IVP 05/01/25 18:00 05/31/25 17:59 05/08/25 11:17 10 MG Metronidazole/ Sodium Chloride 100 ml @ 100 mls/hr Q8H6 IVPB 04/22/25 14:00 05/02/25 13:59 DC 05/02/25 09:55 100 MLS/HR Morphine Sulfate (morPHINE 4MG SYG) 4 mg Q4H PRN IVP SEVERE PAIN (7-10) 04/19/25 22:00 04/20/25 10:52 DC Nystatin (NystOP 15 GM POWDER) 1 APPLICATION BID TP 04/26/25 14:00 05/26/25 13:59 05/08/25 08:05 1 APPL Ondansetron HCl (zoFRAN 4MG INJ) 4 mg Q6H PRN IV NAUSEA/VOMITING 04/19/25 22:00 05/19/25 21:59 04/24/25 22:19 4 MG Pantoprazole Sodium (PROTonix 40MG INJ) 40 mg BID IVP 05/06/25 21:00 06/05/25 20:59 05/08/25 07:59 40 MG Pharmacy Profile Note (Pharmacy Communication) 1 each ONCE MIS 05/01/25 12:30 05/01/25 12:11 DC Pharmacy Profile Note (Pharmacy Communication) 1 [place] [facility] [place] 16:30 05/04/25 16:22 DC Potassium Chloride 100 ml @ 100 mls/hr PROTOCOL PRN IV hypokalemia 05/01/25 21:00 05/31/25 20:59 05/01/25 22:29 100 MLS/HR Promethazine HCl (Phenergan) 12.5 mg Q8H5 PRN IM NAUSEA/VOMITING 04/22/25 12:30 05/22/25 12:29 04/22/25 12:25 12.5 MG Sodium Chloride 500 ml @ 0 mls/hr Q0M STAT IV 04/22/25 13:17 04/22/25 13:22 DC 04/22/25 14:39 600 MLS/HR Vancomycin HCl 250 ml @ 125 mls/hr Q12H IV 05/08/25 09:00 05/18/25 08:59 05/08/25 07:59 125 MLS/HR Vancomycin HCl 250 ml @ 125 mls/hr Q12H IV 05/06/25 08:00 05/08/25 01:53 DC 05/07/25 21:18 125 MLS/HR Vancomycin HCl 250 ml @ 125 mls/hr Q24H IV 05/01/25 05:00 05/06/25 07:19 DC 05/05/25 05:03 125 MLS/HR Vancomycin HCl 250 ml @ 125 mls/hr Q8H IV 04/29/25 21:00 04/30/25 14:25 DC 04/30/25 05:52 125 MLS/HR Vancomycin HCl (Vancomycin Protocol) 1 each AD IV 04/22/25 15:00 04/23/25 22:23 DC Vancomycin HCl (Vancomycin Protocol) 1 each AD IV 04/29/25 11:00 05/13/25 10:59 DIAGNOSTICS / RADIOLOGY: [ ] ASSESSMENT: Severe sepsis with MODS, resolved Leukocytosis Gram-positive cocci bacteremia Status post left rib biopsy by IR on 04/26/2025 New right upper lobe spiculated infiltrative mass measuring 5.4 x 4.6 cm infiltrating mediastinal pleura and albumin in the right main pulmonary artery Bulky mediastinal lymphadenopathy with the largest node measuring 4 cm involving the right paratracheal, prevascular, and subcarinal stations Multiple bilateral spiculated pulmonary nodules consistent with metastatic disease progression Bilateral marked diffuse adrenal enlargement likely metastatic or hyperplastic Left iliac fossa 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 Right upper extremity DVT involving the axillary and brachial veins Small-bowel obstruction Stage IV colorectal cancer with metastatic disease to the lung, pathology consistent with moderately differentiated adenocarcinoma, POA PLAN: patient is seen and examined at bedside, discussed with the RN, no acute events overnight, comfortably in bed, following commands, tolerating diet, no nausea, no vomiting, no abdominal discomfort. Patient is scheduled for Port-A-Cath placement today by IR. Continue broad-spectrum antibiotics, follow a.m. labs. NEURO: Minimize central acting medications as possible. Fall Precautions. Well lighted room through the day and minimize interruptions through the night to prevent acute delirium. PULMONARY: Supplemental 02 as needed BiPAP as necessary, for respiratory distress Titrate Fio2 to keep Spo2 > or = 90% DuoNebs and CPT as needed IS hourly while awake for pulmonary hygiene prn Out of bed to chair as tolerated Maintain aspiration precautions at all times CARDIOVASCULAR: Follow hemodynamics. Vital signs per facility protocol GI & NUTRITION: Continue nutritional support Aspirations precautions Prokinetic agents and laxatives as needed KIDNEYS & ELECTROLYTES: Strict monitoring of intake and output Daily weights Avoid nephrotoxic agents Monitor electrolytes and replace as needed Goal urine output of 30mL/hr or 0.5mL/kg/hr Medications to be dosed according to renal function. Avoid contrast if possible ENDOCRINE: Maintain blood glucose between 100-180 at all times. Insulin sliding scale for blood glucose management Hypoglycemia and hyperglycemia protocol in place INFECTIOUS DISEASE: Trend temperature, WBC and procalcitonin level Follow cultures, deescalate antibiotics as soon as possible. Panculture if new onset fever HEMATOLOGY & COAGULATION: Monitor H&H. Keep Hgb > 7 Transfuse 1 unit of PRBC for Hgb < 7 Transfuse 1 pack of platelets of platelets < 20, 000 Watch for any signs and symptoms of bleeding SKIN: Pressure ulcer prevention per facility protocol Specialty mattress as needed ORTHO/REHAB Continue PT/OT PRN: MEDICATIONS Tylenol 650 mg po every 4 hrs for fever zofran 4 mg IV every 6 hrs for n/v Hydralazine 5 mg IV every 4 hrs systolic pressure > 160 bowel regiment: lactulose 20 gm PO BID PRN constipation Supportive measures: Continue GI and DVT prophylaxis Disposition: Pending improvement in clinical condition All questions answered time spent: > 35 min TITA PETERSON MD May 08, 2025 12:37
--- NOTE | 2025-05-08 12:54 | PN ---
NEPHROLOGY PROGRESS NOTE Date/Time Patient Seen: May 08, 2025 SUBJECTIVE: This is a 35-year-old male with a past medical history of morbid obesity, colon mass S/p resection with colostomy. He presented to emergency room with complaints of right knee pain. He has had a prolonged hospital stay. He was initially admitted with the acute on chronic renal failure. He does have a history of metastatic disease. S/p lung biopsy consistent with adenocarcinoma, stage IV Colorectal cancer with metastatic disease to the lung The patient's renal function has remained fairly stable in the patient has been seen as a follow up visit for all the above. Renal function is stable Electrolytes show hyponatremia, improving. He continues on antibiotics including vancomycin Continues on Lasix 20 mg IV q.12 hours and TPN Pending Port-a-cath placement, today He was seen in the medical floor, in no acute distress Multiple family members at the bedside REVIEW OF SYSTEMS: GENERAL: Positive for generalized weakness NEUROLOGIC: Negative for any blurry vision, blind spots, double vision, facial asymmetry, dysphagia, dysarthria, hemiparesis, hemisensory deficits, vertigo, ataxia. HEENT: Negative for any head trauma, neck trauma, neck stiffness, photophobia, phonophobia, sinusitis, rhinitis. CARDIAC: Negative for any chest pain, dyspnea on exertion, paroxysmal nocturnal dyspnea, peripheral edema. PULMONARY: Negative for any shortness of breath, wheezing, COPD, or TB exposure. GASTROINTESTINAL: Negative for any abdominal pain, nausea, vomiting, bright red blood per rectum, melena. GENITOURINARY: Negative for any dysuria, hematuria, incontinence. INTEGUMENTARY: Negative for any rashes, cuts, insect bites. RHEUMATOLOGIC: Negative for any joint pains, photosensitive rashes, history of vasculitis or kidney problems. HEMATOLOGIC: Negative for any abnormal bruising, frequent infections or bleeding. Vital Signs (last 8hr) Date Time Temp Pulse Resp B/P (MAP) Pulse Ox O2 Delivery O2 Flow Rate FiO2 05/08/25 12:00 97.9 113 21 112/65 95 Room Air 05/08/25 08:00 98.8 103 22 115/67 92 Room Air 05/08/25 07:31 84 18 N/A Room Air 21 PHYSICAL EXAM: GENERAL: Alert and oriented x 3. No acute distress. Well-nourished. EYES: EOMI. Anicteric. HENT: Moist mucous membranes. No scleral icterus. No cervical lymphadenopathy. LUNGS: Clear to auscultation bilaterally. No accessory muscle use. CARDIOVASCULAR: Regular rate and rhythm. No murmur. No JVD. ABDOMEN: Soft, non-tender and non-distended. No palpable masses. EXTREMITIES: No edema. Non-tender. SKIN: No rashes or lesions. Warm. NEUROLOGIC: No focal neurological deficits. CN II-XII grossly intact, but not individually tested. PSYCHIATRIC: Cooperative. Appropriate mood and affect. Current Medications Medications (Trade) Dose Ordered Sig/Checo Route PRN Reason Start Time Stop Time Status Last Admin Dose Admin Acetaminophen (TYLenol 325MG TAB) 650 mg Q6H PRN PO FEVER/pain 1-3 04/19/25 22:00 05/19/25 21:59 04/21/25 02:20 650 MG Benzonatate (Tessalon 100mg Caps) 100 mg Q8H PRN PO COUGH 05/03/25 11:00 06/02/25 10:59 05/03/25 11:32 100 MG Cefepime HCl (MAXipime 2 gm vial) 2 gm Q8H IVPB 04/22/25 13:00 04/30/25 13:07 DC 04/30/25 04:27 2 GM Cefepime HCl (MAXipime 2 gm vial) 2 gm Q8H IVPB 04/30/25 16:00 05/01/25 12:05 DC 05/01/25 00:34 2 GM Ceftriaxone Sodium (ROCEphine 1G INJ) 1 gm Q24H IVPB 04/20/25 10:00 04/22/25 12:41 DC 04/22/25 10:53 1 GM Dexamethasone Sodium Phosphate (dexaMETHasone 4MG/ML 1ML VIAL) 10 mg Q24H IV 05/01/25 17:00 05/02/25 09:13 DC 05/01/25 17:22 10 MG Dexamethasone Sodium Phosphate (dexaMETHasone 10MG/ML 1ML VIAL) 10 mg Q24H IV 05/02/25 17:00 05/31/25 16:59 05/02/25 16:57 10 MG Dextrose 1,000 ml @ 50 mls/hr Q20H IV 04/25/25 08:00 04/25/25 16:53 DC 04/25/25 10:38 100 MLS/HR Doxycycline Hyclate 250 ml @ 125 mls/hr Q12H IV 04/21/25 08:30 04/22/25 12:41 DC 04/22/25 08:14 125 MLS/HR Enoxaparin Sodium (Lovenox) 40 mg DAILY SQ 04/20/25 09:00 04/22/25 20:00 DC 04/22/25 08:14 40 MG Enoxaparin Sodium (Lovenox) 40 mg Q12H SQ 04/22/25 21:00 04/27/25 13:24 DC 04/27/25 08:10 40 MG Famotidine (Pepcid 20mg Vial) 20 mg BID IV 05/02/25 21:00 06/01/25 20:59 05/03/25 10:25 20 MG Famotidine (Pepcid 20mg Tab) 20 mg DAILY PO 04/20/25 09:00 05/02/25 12:03 DC 04/30/25 09:23 20 MG Fluconazole (DiFLUCan 100 mg TAB) 200 mg Q24H PO 05/01/25 12:30 05/02/25 12:03 DC Fluconazole/ Sodium Chloride (DiFLUCan 200 MG/ NS 100 ML) 200 mg Q24H IVPB 05/02/25 12:00 06/01/25 11:59 05/03/25 11:32 200 MG Furosemide (LASix 20MG VIAL) 20 mg Q12H IV 04/29/25 11:00 05/29/25 10:59 05/03/25 10:25 20 MG Furosemide (LASix 20MG VIAL) 20 mg Q8H IV 04/24/25 19:00 04/25/25 03:01 DC 04/25/25 03:06 20 MG Heparin Sodium (Porcine) (HEParin 5,000 UNIT VIAL) *calculation based on ACTUAL B... AD PRN IV HEPARIN PROTOCOL 04/27/25 14:00 05/27/25 13:59 Heparin Sodium/ Dextrose 250 ml @ 0 mls/hr Q6H IV 04/27/25 14:00 05/27/25 13:59 05/02/25 16:59 19.17 MLS/HR Hydralazine HCl (APRESOLine 20MG INJ) 5 mg Q6H PRN IV For:SBP above 160;DBP above 90 04/20/25 16:00 05/20/25 15:59 Hydralazine HCl (APRESOLine 20MG INJ) 10 mg Q6H PRN IV For:SBP above 160;DBP above 90 04/19/25 22:00 04/20/25 10:52 DC Hydromorphone HCl (DiLAUDid 0.5MG INJ) 0.5 mg Q4H PRN IVP SEVERE PAIN (7-10) 04/22/25 20:00 04/27/25 19:59 DC Ipratropium [place] (AtrovENT UD) 0.5 MG Q6H PRN IH SHORTNESS OF BREATH 04/28/25 19:30 05/28/25 19:29 04/29/25 11:10 0.5 MG Iron Sucrose (VenoFER) 200 mg DAILY IV 04/26/25 09:00 04/28/25 11:00 DC 04/28/25 09:20 200 MG Ketorolac Tromethamine (toRADol) 15 mg Q6H PRN IM MODERATE PAIN (4-6) 04/30/25 11:30 05/05/25 11:29 Ketorolac Tromethamine (toRADol) 15 mg Q6H PRN IV MODERATE PAIN (4-6) 04/20/25 11:00 04/22/25 19:58 DC 04/20/25 22:08 15 MG Labetalol HCl (TRANdate 20MG SYG) 10 mg Q6H PRN IV SUSTAINED HR >120 04/23/25 00:00 05/23/25 00:00 Lactated Ringer's 1,000 ml @ 50 mls/hr Q20H IV 04/21/25 12:30 04/25/25 07:47 DC 04/24/25 02:58 75 MLS/HR Lactated Ringer's 1,000 ml @ 100 mls/hr Q10H IV 04/19/25 22:00 04/20/25 10:52 DC 04/21/25 12:40 100 MLS/HR Lactulose (Constulose 20gm/ 30ml Udcup) 20 gm ACHS PRN PO CONSTIPATION 04/29/25 20:00 04/30/25 13:06 DC 04/30/25 09:33 20 GM Lactulose (Constulose 20gm/ 30ml Udcup) 20 gm BID PRN PO CONSTIPATION 04/19/25 22:00 04/29/25 19:41 DC Lactulose (Constulose 20gm/ 30ml Udcup) 20 gm Q6HWA PRN PO CONSTIPATION 04/30/25 13:00 05/30/25 12:59 Lidocaine (Lidocaine Patch 4%) 1 each DAILY TP 04/21/25 09:00 05/21/25 08:59 05/03/25 10:25 1 EACH Magnesium Sulfate 50 ml @ 0 mls/hr PROTOCOL IV 04/21/25 08:30 05/21/25 08:29 04/24/25 06:11 25 MLS/HR Meropenem (Merrem 1gm) 1 gm Q8H IVPB 05/01/25 12:30 05/02/25 12:29 DC 05/02/25 04:15 1 GM Metoclopramide HCl (regLAN 10MG IV) 10 mg Q6H6 IVP 05/01/25 18:00 05/31/25 17:59 05/03/25 11:32 10 MG Metronidazole/ Sodium Chloride 100 ml @ 100 mls/hr Q8H6 IVPB 04/22/25 14:00 05/02/25 13:59 DC 05/02/25 09:55 100 MLS/HR Morphine Sulfate (morPHINE 4MG SYG) 4 mg Q4H PRN IVP SEVERE PAIN (7-10) 04/19/25 22:00 04/20/25 10:52 DC Nystatin (NystOP 15 GM POWDER) 1 APPLICATION BID TP 04/26/25 14:00 05/26/25 13:59 05/03/25 10:25 1 APPL Ondansetron HCl (zoFRAN 4MG INJ) 4 mg Q6H PRN IV NAUSEA/VOMITING 04/19/25 22:00 05/19/25 21:59 04/24/25 22:19 4 MG Pharmacy Profile Note (Pharmacy Communication) 1 each ONCE MISC 05/01/25 12:30 05/01/25 12:11 DC Potassium Chloride 100 ml @ 100 mls/hr PROTOCOL PRN IV hypokalemia 05/01/25 21:00 05/31/25 20:59 05/01/25 22:29 100 MLS/HR Promethazine HCl (Phenergan) 12.5 mg Q8H5 PRN IM NAUSEA/VOMITING 04/22/25 12:30 05/22/25 12:29 04/22/25 12:25 12.5 MG Sodium Chloride 500 ml @ 0 mls/hr Q0M STAT IV 04/22/25 13:17 04/22/25 13:22 DC 04/22/25 14:39 600 MLS/HR Vancomycin HCl 250 ml @ 125 mls/hr Q24H IV 05/01/25 05:00 05/11/25 04:59 05/03/25 05:41 125 MLS/HR Vancomycin HCl 250 ml @ 125 mls/hr Q8H IV 04/29/25 21:00 04/30/25 14:25 DC 04/30/25 05:52 125 MLS/HR Vancomycin HCl (Vancomycin Protocol) 1 each AD IV 04/22/25 15:00 04/23/25 22:23 DC Vancomycin HCl (Vancomycin Protocol) 1 each AD IV 04/29/25 11:00 05/13/25 10:59 LABORATORY: [ ] Hematology Labs: Test 05/08/25 01:59 05/07/25 07:59 Range/Units White Blood Count 21.5 H 4.8-10.8 K/uL Red Blood Count 4.90 4.50-6.20 MIL/uL Hemoglobin 12.1 L 14.0-18.0 g/dL Hematocrit 38.0 L 42-54 % Mean Corpuscular Volume 77.6 L 79-99 fL Mean Corpuscular Hemoglobin 24.7 L 27.0-33.0 pg Mean Corpuscular Hemoglobin Concent 31.8 L 32.0-36.0 g/dL Red Cell Distribution Width 23.3 H 11.0-15.5 % Platelet Count 378 130-400 K/uL Mean Platelet Volume 10.4 7.5-10.5 fL Segmented Neutrophils % 81 H 40-70 % Lymphocytes % (Manual) 12 L 22-44 % Monocytes % (Manual) 7 2-9 % Nucleated Red Blood Cells 0.0 0.0-0.19 % Differential Comment MANUAL DIFFERENTIAL White Cell Morphology Comment Platelet Morphology Comment ADEQUATE Red Blood Cell Morphology See comments Immature Granulocyte % (Auto) 3.6 H 0-1 % Neutrophils (%) (Auto) 73.4 40.0-77.0 % Lymphocytes (%) (Auto) 11.3 L 21.0-51.0 % Monocytes (%) (Auto) 11.1 3.0-13.0 % Eosinophils (%) (Auto) 0.2 0.0-8.0 % Basophils (%) (Auto) 0.4 0.0-5.0 % Neutrophils # (Auto) 13.4 H 1.8-7.7 K/uL Lymphocytes # (Auto) 2.1 1.0-4.8 K/uL Monocytes # (Auto) 2.0 H 0.1-1.0 K/uL Eosinophils # (Auto) 0.03 0.00-0.70 K/uL Basophils # (Auto) 0.07 0.00-0.20 K/uL Absolute Immature Granulocyte (auto 0.66 0-1 K/uL Chemistry Labs: Test 05/08/25 11:38 05/08/25 01:59 05/07/25 07:59 05/06/25 21:11 Range/Units Whole Blood Glucose 126 H 70-110 MG/DL Sodium Level 130 L 136-145 mmol/L Potassium Level 4.1 3.5-5.1 mmol/L Chloride Level 94 L 101-111 mmol/L Carbon Dioxide Level 31 21-32 mmol/L Blood Urea Nitrogen 34 H 7-18 mg/dL Creatinine 0.8 0.5-1.3 mg/dL Glomerular Filtration Rate Calc 118 >90 mL/min Random Glucose 130 H 70-105 mg/dL Total Calcium 8.5 8.5-10.1 mg/dL Phosphorus Level 4.2 2.5-4.9 mg/dL Magnesium Level 2.00 1.80-2.40 mg/dL Total Bilirubin 1.1 #H 0.2-1.0 mg/dL Aspartate Amino Transf (AST/SGOT) 82 H 10-37 U/L Alanine Aminotransferase (ALT/SGPT) 104 H 12-78 U/L Alkaline Phosphatase 308 H 50-136 U/L Total Protein 7.2 6.0-8.3 g/dL Albumin 2.3 L 3.5-5.0 g/dL Uric Acid 4.4 2.6-7.2 mg/dL Thyroid Stimulating Hormone (TSH) 6.43 H 0.36-3.74 uIU/mL Bedside Glucose Comment Notified Nurse Coagulation Labs: Test 05/08/25 08:50 Range/Units Prothrombin Time 11.5 9.6-11.6 SEC Prothromb Time International Ratio 1.09 0.85-1.15 Activated Partial Thromboplast Time 70.1 H 26.3-35.5 SEC DIAGNOSTICS / RADIOLOGY: [facility] [address] [place] [address] IMAGING REPORT Signed PATIENT: MARTY BARRON MR#: [id number] : 1990 SEX: M AGE: 35 LOCATION: 3CH ORDER 1046 STATUS: ADM IN REPORT#: [id number] SERVICE 1045 REASON: RULE OUT BOWEL OBSTRUCTION OR ILIEUS ORDERING PHYSICIAN: TITA PETERSON MD PROCEDURE: SBFT - SM BOWEL SERIES SMALL BOWEL SERIES HISTORY: Status post colon resection with ostomy placement 2 months ago COMPARISON: None. TECHNIQUE: A small bowel series was performed with serial radiographs of the abdomen and pelvis obtained after oral administration of contrast. Patient was given 180 cc of Gastrografin. FINDINGS: WOMEN DESIGNER: No evidence for free air. No unusual calcifications detected. Small bowels are dilated air-filled suggesting of possible ileus. There are surgical clips in the right upper quadrant. After oral administration of 90 cc of Gastrografin, normal opacification of the stomach noted without evidence for malrotation. The duodenum, jejunum, and ileum appear normal in caliber. The mucosal pattern appears grossly normal, without evidence for obstruction or discrete filling defect. Transit time through the small bowel was approximately 24 hours with Gastrografin has reached large bowel and sigmoid colon. (normal is 1-4 hrs). The terminal ileum was spotted, and no strictures or masses detected. IMPRESSION: There is resolving Gastrografin small bowel follow-through with 24-hour the Gastrografin has reached sigmoid colon and transverse colon. DICTATED BY: LEXIE NG MD DATE: 05/04/251651 ELECTRONICALLY SIGNED BY: LEXIE NG MD DATE: 05/04/251657 PATIENT: MARTY BARRON MR#: [id number] : 1990 SEX: M AGE: 35 LOCATION: 3CH ORDER 2300 STATUS: ADM IN REPORT#: [id number] SERVICE 0600 REASON: decreased ostomy output ORDERING PHYSICIAN: SAROJ MAGDALENOCNAntonia PROCEDURE: CXR1VW - CHEST 1VW EXAM: CR Chest, 1 View. CLINICAL HISTORY: decreased ostomy output COMPARISON: 05/01/2025 FINDINGS: LUNGS: Persistent right paratracheal opacity. Right inhomogeneous airspace opacities in the mid and lower zones, stable. Mild pulmonary vascular congestion. PLEURAL SPACES: No evidence of pleural effusion or pneumothorax. MEDIASTINUM: The cardiomediastinal silhouette is within normal limits. BONES: No acute osseous abnormality. IMPRESSION: 1. Stable right paratracheal opacity and right mid and lower zone airspace opacities. 2. Mild pulmonary vascular congestion. /[place] DICTATED BY: LYNDSEY ENRIQUE MD DATE: 05/03/251719 ELECTRONICALLY SIGNED BY: LYNDSEY ENRIQUE MD DATE: 05/03/251719 PATIENT: MARTY BARRON MR#: [id number] : 1990 SEX: M AGE: 35 LOCATION: 2DH ORDER 1434 STATUS: ADM IN REPORT#: [id number] SERVICE 1433 REASON: RULE OUT OBSTRUCTION VS ILIEUS ORDERING PHYSICIAN: TITA PETERSON MD PROCEDURE: ABD 1VW - ABD 1VW EXAM: CR Abdomen, 4 View. CLINICAL HISTORY: RULE OUT OBSTRUCTION VS ILIEUS COMPARISON: Radiograph dated April 30, 2025 FINDINGS: Redemonstrated air-filled dilated loops of small bowel measuring up to 5.[address] imaging to exclude small bowel ileus versus a partial distal small bowel obstruction. IMPRESSION: 1. Dilated small bowel loops up to 5.0 cm, concerning for ileus or partial small bowel obstruction. CT imaging recommended for further evaluation. /[place] DICTATED BY: ANTONIO STEINBERG Jr., MD DATE: 05/01/251946 ELECTRONICALLY SIGNED BY: ANTONIO STEINBERG Jr., MD DATE: 05/01/251946 PATIENT: MARTY BARRON MR#: [id number] : 1990 SEX: M AGE: 35 LOCATION: 2DH ORDER 99 STATUS: ADM IN REPORT#: [id number] SERVICE 9 REASON: decreased ostomy output ORDERING PHYSICIAN: SAROJ MAGDALENO PROCEDURE: CXR1VW - CHEST 1VW EXAM: CR Chest, 1 View. CLINICAL HISTORY: Decreased ostomy output. COMPARISON: CR ??? Chest 1 View dated 04/30/25, 08:56 EST. FINDINGS: LUNGS: Persistent right paratracheal opacity with inhomogeneous airspace infiltrates in the right lung. Inhomogeneous airspace infiltrates in the left upper lung appear decreased, suggesting interval resolution. No new pulmonary consolidation or mass. PLEURAL SPACES: No pleural effusion or pneumothorax. MEDIASTINUM: Cardiomediastinal silhouette within normal limits. BONES: No acute or aggressive osseous lesion. IMPRESSION: * Persistent right paratracheal opacity with inhomogeneous right lung infiltrates. * Interval resolving left upper lung infiltrates. * No pleural effusion or pneumothorax. Comparison: Compared with prior radiograph dated 04/30/25, right-sided opacities persist while left upper lung infiltrates show partial resolution. /[place] DICTATED BY: JOSAFAT DALY MD DATE: 05/01/252324 ELECTRONICALLY SIGNED BY: JOSAFAT DALY MD DATE: 05/01/252324 PATIENT: MARTY BARRON MR#: [id number] : 1990 SEX: M AGE: 35 LOCATION: 2DH ORDER 99 STATUS: ADM IN HOSPITAL REPORT#: [id number] SERVICE 9 REASON: decreased ostomy output ORDERING PHYSICIAN: SAROJ MAGDALENO PROCEDURE: CXR1VW - CHEST 1VW EXAM: CHEST RADIOGRAPH, 1 VIEW Technique: Single frontal expiratory view of the chest. Clinical Information: Decreased ostomy output. Findings: Lungs and large airways: Mild patchy opacities are present in both upper lobes; a right paratracheal suprahilar opacity is again seen; no lobar collapse is identified. Pleura: No pleural effusion or pneumothorax is identified. Heart and mediastinum: Cardiomediastinal silhouette is within normal limits. Bones/joints: No acute osseous abnormality is identified. Impression: * Comparison: Compared with chest radiograph dated 04/28/2025 07:29 EDT, bilateral basilar consolidation with associated mild atelectasis has resolved; mild patchy opacities in both upper lobes and the right paratracheal suprahilar opacity are unchanged; no pleural effusion or pneumothorax is identified. * Mild bilateral upper-lobe opacities, stable???correlate clinically for resolving infection or inflammatory change. * Expiratory acquisition limits assessment of lung volumes and may accentuate vascular crowding. /[place] DICTATED BY: JOSAFAT DALY MD DATE: 05/01/25207 ELECTRONICALLY SIGNED BY: JOSAFAT DALY MD DATE: 05/01/25207 PATIENT: MARTY BARRON MR#: [id number] : 1990 SEX: M AGE: 35 LOCATION: [facility] ORDER 99 STATUS: ADM IN REPORT#: [id number] SERVICE 9 REASON: decreased ostomy output ORDERING PHYSICIAN: SAROJ MAGDALENO PROCEDURE: ABD 1VW - ABD 1VW ADDENDUM REPORT ADDENDUM: Results were shared by telephone at 06:34 am on 05-01-25 and acknowledged by Patients Nurse Mr.Jose Sargentmalena /[place] EXAM: CR Abdomen, multiple views. CLINICAL HISTORY: Decreased ostomy output. COMPARISON: None provided. FINDINGS: Multiple dilated small bowel loops with multiple air-fluid levels. Large bowel loops are not dilated. Features of small bowel obstruction. Excreted contrast is identified within the urinary bladder. No free air is evident. No abnormal calcification. No aggressive appearing osseous lesion. IMPRESSION: Multiple dilated small bowel loops with multiple air-fluid levels. Large bowel loops are not dilated. The features concerning bowel obstruction or ileus. Recommend a barium follow-through study for further evaluation. /[place] DICTATED BY: ANTONIO STEINBERG Jr., MD DATE: 05/01/25636 ELECTRONICALLY SIGNED BY: DATE: EXAM: CR Abdomen, multiple views. CLINICAL HISTORY: Decreased ostomy output. COMPARISON: None provided. FINDINGS: Multiple dilated small bowel loops with multiple air-fluid levels. Large bowel loops are not dilated. Features of small bowel obstruction. Excreted contrast is identified within the urinary bladder. No free air is evident. No abnormal calcification. No aggressive appearing osseous lesion. IMPRESSION: Multiple dilated small bowel loops with multiple air-fluid levels. Large bowel loops are not dilated. The features concerning bowel obstruction or ileus. Recommend a barium follow-through study for further evaluation. /[place] DICTATED BY: ANTONIO STEINBERG Jr., MD DATE: 05/01/25622 ELECTRONICALLY SIGNED BY: ANTONIO STEINBERG Jr., MD DATE: 05/01/25622 PATIENT: MARTY BARRON MR#: [id number] : 1990 SEX: M AGE: 35 LOCATION: 2DH ORDER 9 STATUS: ADM IN HOSPITAL REPORT#: [id number] SERVICE REASON: Right arm PICC, concern for DVT, swelling, pain, and redness noted ORDERING PHYSICIAN: COOPER STUART HYPERION ESSBASE DEVELOPER PROCEDURE: VENOUS UNI - US VENOUS DOPPLER UNILATERAL ADDENDUM REPORT ADDENDUM: Results were shared by telephone at 14:06 pm on 04-27-25 and acknowledged by Pt Nurse, Ms Georgiana Solomon /[place] EXAM: ULTRASOUND VENOUS DOPPLER, RIGHT UPPER EXTREMITY Technique: Duplex ultrasound with grayscale imaging, compression maneuvers, color Doppler, and spectral Doppler sampling of the right upper extremity veins. Clinical Information: Right arm peripherally inserted central catheter; swelling, pain, and redness; concern for deep venous thrombosis. Findings: Right axillary vein: Noncompressible with intraluminal echogenic thrombus and absent color Doppler filling, consistent with thrombosis. Right brachial veins: Thrombus present consistent with deep venous thrombosis. Right cephalic vein: Partial (non-occlusive) thrombosis. PICC: Indwelling right upper extremity peripherally inserted central catheter present; catheter-associated thrombosis suspected based on thrombus distribution. Tip location not assessed on this examination. Additional comments: No other specific venous segment findings were provided for review. Impression: * Right upper extremity catheter-associated deep venous thrombosis involving the axillary vein and brachial veins. * Non-occlusive thrombosis of the right cephalic vein (superficial venous thrombosis). * Correlate clinically for pulmonary embolism risk; management typically includes anticoagulation per institutional protocol and assessment of need for PICC removal or exchange depending on clinical requirements. /[place] DICTATED BY: ANTONIO STEINBERG Jr., MD DATE: 04/27/25 1410 ELECTRONICALLY SIGNED BY: DATE: EXAM: ULTRASOUND VENOUS DOPPLER, RIGHT UPPER EXTREMITY Technique: Duplex ultrasound with grayscale imaging, compression maneuvers, color Doppler, and spectral Doppler sampling of the right upper extremity veins. Clinical Information: Right arm peripherally inserted central catheter; swelling, pain, and redness; concern for deep venous thrombosis. Findings: Right axillary vein: Noncompressible with intraluminal echogenic thrombus and absent color Doppler filling, consistent with thrombosis. Right brachial veins: Thrombus present consistent with deep venous thrombosis. Right cephalic vein: Partial (non-occlusive) thrombosis. PICC: Indwelling right upper extremity peripherally inserted central catheter present; catheter-associated thrombosis suspected based on thrombus distribution. Tip location not assessed on this examination. Additional comments: No other specific venous segment findings were provided for review. Impression: * Right upper extremity catheter-associated deep venous thrombosis involving the axillary vein and brachial veins. * Non-occlusive thrombosis of the right cephalic vein (superficial venous thrombosis). * Correlate clinically for pulmonary embolism risk; management typically includes anticoagulation per institutional protocol and assessment of need for PICC removal or exchange depending on clinical requirements. /[place] DICTATED BY: ANTONIO STEINBERG Jr., MD DATE: 04/27/251353 ELECTRONICALLY SIGNED BY: ANTONIO STEINBERG Jr., MD DATE: 04/27/251353 PATIENT: MARTY BARRON MR#: [id number] : 1990 SEX: M AGE: 35 LOCATION: [facility] WITH [facility] ORDER 1441 STATUS: ADM IN REPORT#: [id number] SERVICE 0000 REASON: rule out endocarditis ORDERING PHYSICIAN: SAROJ MAGDALENO PROCEDURE: ECHO CMP - ECHO 2-D COMPLETE APPROVED REPORT EXAM: Two-dimensional and M-mode echocardiogram with Doppler and color Doppler. INDICATION ICD: Rule out endocarditis, rule out clot or pulmonary embolism 2D Dimensions RVDd 3.6 cm LVEF(%) 56.6 (>50%) LVED Vol(simp.) 103.0 mL IVSd 0.9 (0.7-1.1cm) FS(%) 30 % LVES Vol(simp.) 45.0 mL LVDd 4.8 (3.8-5.6cm) LA (2D) 3.3 (1.6-4.0cm) LVEF(%, simp.) 56 % PWd 1.1 (0.7-1.1cm) Ao Root(2D) 3.4 (2.0-3.7cm) LA ESV INDEX (BP) 17.03 mL/m2 IVSs 1.0 cm LVOT diam 2.6 (1.8-2.4cm) LVDs 3.4 (2.5-4.0cm) IVC diam 1.1 cm PWs 1.0 cm Deformation Strain Apical 4 -14.1 % Apical 2 -15.4 % Apical 3 -13.0 % Global Strain -14.2 % M-Mode Dimensions EPSS 0.6 cm LA (MM) 3.8 (1.6-4.0cm) Ao Root(MM) 3.8 (2.0-3.7cm) Aortic Valve AoV Vmax 1.5 m/s Ao Peak GR 9.3 mmHg LVOT Vmax 1.3 m/s AoV VTI 0.2 m Ao Mean GR 5.5 mmHg LVOT VTI 0.18 m AARON (VMAX) 4.54 cm2 AARON (VTI) 4.4 cm2 Mitral Valve MV E Vmax 70.7 cm/s DECEL Time 158 ms MV A Vmax 67.4 cm/s P 1/2 T 46 ms E/A ratio 1.0 MVA (PHT) 4.7 cm2 TDI E/E' Medial 6.3 E/E' Lateral 6.1 Medial E' Peak V 11.25 cm/s Lateral E' Peak V 11.56 cm/s Pulmonary Valve PV Vmax 1.6 m/s PV VTI 0.19 m PV Mean GR 5.0 mmHg PV Peak GR 10.4 mmHg Tricuspid Valve TR Vmax 3.6 m/s RAP (EST) 3 mmHg RVSP 64.1 mmHg TR Peak GR 61.1 mmHg Left Ventricle The left ventricle is normal size. GLS -14.0% There is normal left ventricular wall thickness. LVEF is 50-55%. No left ventricle thrombus noted on this study. The left ventricular diastolic function is normal. Right Ventricle The right ventricle is normal size. The right ventricular systolic function is normal. Atria The left atrium size is normal. There is no mass or thrombus suspected in the left atrium. The right atrium size is normal. There is no mass or thrombus suspected in the right atrium. Aortic Valve The aortic valve is trileafelt normal in structure. No aortic regurgitation is present. No aortic valvular vegetation noted. There is no aortic valvular stenosis. Mitral Valve The mitral valve is normal in structure. There is no mitral valve regurgitation noted. There are no mitral valve vegetation noted. There is no mitral valve stenosis. Tricuspid Valve The tricuspid valve is normal in structure. There is mild tricuspid valve regurgitation noted by color Doppler. RVSP 61mmHg. There is no tricuspid valve vegetation. Pulmonic Valve The pulmonary valve is not well visualized. There is no pulmonic valvular regurgitation. Great Vessels The aortic root is normal in size. The IVC is normal in size and collapses >50% with inspiration. Pericardium There is no pericardial effusion. Other Information Quality : Technically difficult study due to body habitus Rhythm : NSR Conclusion LVEF is 50-55%. No left ventricle thrombus noted on this study. No intracardiac masses No valvular vegetations DICTATED BY: ZELDA MARTINEZ DO DATE: 04/23/25922 ELECTRONICALLY SIGNED BY: ZELDA MARTINEZ DO DATE: 04/23/25 276 PATIENT: MARTY BARRON MR#: [id number] : 1990 SEX: M AGE: 35 LOCATION: [facility] ORDER 06 STATUS: ADM IN REPORT#: [id number] SERVICE 0600 REASON: multiple lung nodules suggestive of mets. recntly diagnosed adenoca colon. ORDERING PHYSICIAN: KRISTIAN MORTON MD PROCEDURE: BXLUNG - CT BX LUNG/MEDIASTINUM NDL IR PERCUTANEOUS CT-GUIDED BIOPSY OF left anterior rib mass: CLINICAL HISTORY: This is a 35 [id number] Male with multiple lesion seen in the lungs there is an expansile mass seen in the left anterior rib for CT-guided biopsy of left anterior rib mass. The risk and benefit was explained to the patient. The risks include infection and possible bleed. The patient consented to the procedure. PROCEDURE: Patient was placed in supine position. Patient was given IV conscious sedation with 2 mg of Versed and 50 MCG of fentanyl.. Under CT guidance left anterior rib lesion was localized. After sterile prep and drapa, using 1% xylocaine for local anesthetic, using a 18-gauge Bard gun, a total of 3 core biopsies were obtained. The specimen was sent for histology and cell block. The patient tolerated the procedure and post-biopsy demonstrated no bleed. There is no evidence of any pneumothorax. IMPRESSION: PERCUTANEOUS CT-GUIDED BIOPSY OF left anterior rib WITH SPECIMENS SENT FOR Histology and cell block.. THE PATIENT TOLERATED PROCEDURE WELL. PATHOLOGY REPORT IS PENDING. If this path report does not demonstrate malignancy I would recommend lung biopsy DICTATED BY: LEXIE NG MD DATE: 04/26/25 1111 ELECTRONICALLY SIGNED BY: LEXIE NG MD DATE: 04/26/25 1116 PATIENT: MARTY BARRON MR#: [id number] : 1990 SEX: M AGE: 35 LOCATION: [facility] ORDER [id number] STATUS: ADM IN REPORT#: [id number] SERVICE 1056 REASON: RLQ PAIN ORDERING PHYSICIAN: TITA PETERSON MD PROCEDURE: ABD PEL WO - CT ABDOMEN/PELVIS W/O CONTRAST ADDENDUM REPORT ADDENDUM: Results were shared by telephone at 1:37 pm on 04-22-[address] David Mary /[place] EXAM: CT Abdomen and Pelvis Without IV contrast CLINICAL HISTORY: RLQ PAIN TECHNIQUE: Axial computed tomography images of the abdomen and pelvis without intravenous contrast. CONTRAST: No IV contrast. COMPARISON: None provided. FINDINGS: LUNG BASES: Multiple randomly distributed nodules in both lungs, the largest measuring 2.1 x 1.6 cm in the medial basal segment of the right lower lobe. Patchy areas of consolidation in bilateral lower lobes. Ill-defined lytic-sclerotic lesion in the left anterior aspect of the 6th rib. Dependent airway disease along bilateral lower lobes, presumed to represent basal atelectasis. LIVER: Hepatic steatosis. GALLBLADDER AND BILE DUCTS: Post cholecystectomy status. No biliary ductal dilatation is evident. PANCREAS: Unremarkable. SPLEEN: Unremarkable. ADRENAL GLANDS: Bilateral adrenal glands appear diffusely bulky, predominantly on the left side, likely adrenal gland hyperplasia. KIDNEYS, URETERS, AND BLADDER: The kidneys appear within normal limits. There is no hydronephrosis or hydroureter. No urinary calculi are seen. STOMACH AND BOWEL: There is a defect of size 5.6 cm in the left anterior abdominal wall with herniation of the descending colon and small bowel loop. There is dilatation of the herniated bowel loop up to 4.1 cm, consistent with obstruction. Thickened and irregular appearing loop of small bowel in the mid pelvis. Ischemia is not excluded. A contrast-enhanced CT is recommended. PERITONEUM: Trace-free fluid. No free air. LYMPH NODES: No lymphadenopathy is evident. REPRODUCTIVE: Unremarkable as visualized. VASCULATURE: No evidence of abdominal aortic aneurysm. BONES: Lytic lesion in the L4 vertebral body. IMPRESSION: 1. Thickened and irregular appearing loop of small bowel in the mid pelvis. Ischemia is not excluded. A contrast-enhanced CT is recommended. 2. Left anterior abdominal wall hernia with herniation of descending colon and small bowel, with bowel obstruction up to 4.1 cm. 3. Lytic lesion in L4 vertebral body. Left anterior 6th rib lytic-sclerotic lesion. 4. Multiple pulmonary nodules, the largest 2.1 cm in the right lower lobe -suspicious for metastasis. 5. Bilateral adrenal gland hyperplasia, more prominent on the left. Suggest PET-CT for further evaluation. /[place] DICTATED BY: LYNDSEY ENRIQUE MD DATE: 04/22/25 1339 ELECTRONICALLY SIGNED BY: DATE: EXAM: CT Abdomen and Pelvis Without IV contrast CLINICAL HISTORY: RLQ PAIN TECHNIQUE: Axial computed tomography images of the abdomen and pelvis without intravenous contrast. CONTRAST: No IV contrast. COMPARISON: None provided. FINDINGS: LUNG BASES: Multiple randomly distributed nodules in both lungs, the largest measuring 2.1 x 1.6 cm in the medial basal segment of the right lower lobe. Patchy areas of consolidation in bilateral lower lobes. Ill-defined lytic-sclerotic lesion in the left anterior aspect of the 6th rib. Dependent airway disease along bilateral lower lobes, presumed to represent basal atelectasis. LIVER: Hepatic steatosis. GALLBLADDER AND BILE DUCTS: Post cholecystectomy status. No biliary ductal dilatation is evident. PANCREAS: Unremarkable. SPLEEN: Unremarkable. ADRENAL GLANDS: Bilateral adrenal glands appear diffusely bulky, predominantly on the left side, likely adrenal gland hyperplasia. KIDNEYS, URETERS, AND BLADDER: The kidneys appear within normal limits. There is no hydronephrosis or hydroureter. No urinary calculi are seen. STOMACH AND BOWEL: There is a defect of size 5.6 cm in the left anterior abdominal wall with herniation of the descending colon and small bowel loop. There is dilatation of the herniated bowel loop up to 4.1 cm, consistent with obstruction. Thickened and irregular appearing loop of small bowel in the mid pelvis. Ischemia is not excluded. A contrast-enhanced CT is recommended. PERITONEUM: Trace-free fluid. No free air. LYMPH NODES: No lymphadenopathy is evident. REPRODUCTIVE: Unremarkable as visualized. VASCULATURE: No evidence of abdominal aortic aneurysm. BONES: Lytic lesion in the L4 vertebral body. IMPRESSION: 1. Thickened and irregular appearing loop of small bowel in the mid pelvis. Ischemia is not excluded. A contrast-enhanced CT is recommended. 2. Left anterior abdominal wall hernia with herniation of descending colon and small bowel, with bowel obstruction up to 4.1 cm. 3. Lytic lesion in L4 vertebral body. Left anterior 6th rib lytic-sclerotic lesion. 4. Multiple pulmonary nodules, the largest 2.1 cm in the right lower lobe -suspicious for metastasis. 5. Bilateral adrenal gland hyperplasia, more prominent on the left. Suggest PET-CT for further evaluation. /[place] DICTATED BY: LYNDSEY ENRIQUE MD DATE: 04/22/251332 ELECTRONICALLY SIGNED BY: LYNDSEY ENRIQUE MD DATE: 04/22/251332 ASSESSMENT: Acute on chronic renal failure Hyponatremia Severe sepsis with MODS, resolved Leukocytosis Gram-positive cocci bacteremia Status post left rib biopsy by IR on 04/26/2025 New right upper lobe spiculated infiltrative mass measuring 5.4 x 4.6 cm infiltrating mediastinal pleura and albumin in the right main pulmonary artery Bulky mediastinal lymphadenopathy with the largest node measuring 4 cm involving the right paratracheal, prevascular, and subcarinal stations Multiple bilateral spiculated pulmonary nodules consistent with metastatic disease progression Bilateral marked diffuse adrenal enlargement likely metastatic or hyperplastic Left iliac fossa 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 Right upper extremity DVT involving the axillary and brachial veins Small-bowel obstruction Stage IV colorectal cancer with metastatic disease to the lung, pathology consistent with moderately differentiated adenocarcinoma, POA PLAN: Labs, diagnostic, radiologic exams reviewed and interpreted by myself and supervising physician. We have reviewed external records in detail Pending PermCath placement Continue with close monitor renal function electrolytes, if renal function worsens recommend discontinue vancomycin, use alternative antibiotic if possible. BiPAP as necessary, for respiratory distress Monitor blood pressure adjust medication doses as needed Avoid hypotensive episodes May use Dilaudid 0.5 mg IV every 6 hours as needed for severe pain Strict intake, output, TSH, uric acid and daily weight should be monitored Please renally adjust medications Avoid nephrotoxic and nonsteroidal drugs Avoid contrast if possible Will continue to monitor renal function, anemia, electrolytes Treatment plan discussed with patient Questions were answered We have discussed with the other team physicians in detail about the care plan We will continue to monitor the patient closely ATTESTATION BY PHYSICIAN I have seen and examined the patient. I reviewed the documentation, medical decision making, and treatment plan as noted by the mid-level provider above. I agree with the findings and plan of care. ANAYA CHENEY MD, [facility] May 08, 2025 12:54
[2025-05-08] MEDS ORDERED: HEParin-NS 1,000 UNIT/500 ML 500 ML IV ONE (13:12)
[2025-05-08] MEDS ORDERED: LIDOCAINE HCL 1% MDV 50ML VIAL ONE (13:12)
[2025-05-08] MEDS ORDERED: MIDAZOLAM HCL 1 MG/ML 2ML VIAL ONE (13:43)
--- NOTE | 2025-05-08 18:45 | NUR ---
NURSING NOTE PATIENT STARTED ON HEPARIN DRIP. INITIAL DOSE OF HEPAR BOLUS WAS GIVEN. PER PHARMACY 11,550 UNITS OF HEPARIN BOLUS IS CORRECT TO GIVE. PATIENT TOLERATED WELL. ANSWERED ANY QUESTIONS OR CONCERNS PATIENT HAD. CALL LIGHT WITHIN REACH.
--- NOTE | 2025-05-08 20:20 | PN ---
INFECTIOUS DISEASE PROGRESS NOTE Date of Service: May 08, 2025 SUBJECTIVE: This is a 35-year-old male patient who was seen and examined at bedside in room 319. Patient is down for a Port-A-Cath placement today. WBC remains high at 21.5. We will continue on Meropenem, vancomycin, and fluconazole. We will continue to monitor patient. PHYSICAL EXAM EYES: Anicteric. Pupils equal and reactive. HENT: No oral thrush seen, moist Oral mucosa. NECK: Supple, no JVD or thyromegaly. LUNGS: Diminished. Oxygen via nasal cannula. CARDIOVASCULAR: S1, S2 regular. No murmur heard. ABDOMEN: Abdomen is large but Soft, bowel sounds present. Left colostomy. CENTRAL NERVOUS SYSTEM: Awake, alert, oriented x 3. SKIN: No rashes, no swelling. LYMPHATICS: No peripheral lymphadenopathy. MUSCULOSKELETAL: Right knee pain. EXTREMITIES: No cyanosis or clubbing. Generalized weakness. BACK: No deformity, no pressure ulcer. GENITOURINARY: No dysuria or hematuria. Vital Sign (Last 12 Hours) 05/08/25 05/08/25 05/08/25 05/08/25 12:00 15:10 15:15 15:26 Temp 97.9 97.3 Pulse 113 124 121 113 Resp 21 18 18 18 B/P (MAP) 112/65 130/70 125/69 110/61 Pulse Ox 95 93 94 94 O2 Delivery Room Air Room Air Room Air 05/08/25 05/08/25 05/08/25 05/08/25 15:41 15:56 16:28 16:58 Pulse 107 108 108 114 Resp 18 18 18 18 B/P (MAP) 105/57 104/55 103/53 131/69 Pulse Ox 96 96 96 96 O2 Delivery Room Air Room Air Room Air Room Air 05/08/25 05/08/25 05/08/25 17:58 18:32 18:58 Pulse 105 90 107 Resp 18 18 18 B/P (MAP) 121/54 104/57 Pulse Ox 96 95 O2 Delivery Room Air N/A Room Air Room Air FiO2 21 Intake & Output (last 24hrs) 05/07/25 05/07/25 05/08/25 15:00 23:00 07:00 Intake Total 523.0 ml 1722.0 ml 600.1 ml Output Total 1000 ml 2300 ml 900 ml Balance -477.0 ml -578.0 ml -299.9 ml LABS: Laboratory: Test 05/08/25 16:04 05/08/25 15:45 05/08/25 08:50 05/08/25 01:59 Range/Units Whole Blood Glucose 141 H 70-110 MG/DL Activated Partial Thromboplast Time 27.3 # 26.3-35.5 SEC Prothrombin Time 11.5 9.6-11.6 SEC Prothromb Time International Ratio 1.09 0.85-1.15 White Blood Count 21.5 H 4.8-10.8 K/uL Red Blood Count 4.90 4.50-6.20 MIL/uL Hemoglobin 12.1 L 14.0-18.0 g/dL Hematocrit 38.0 L 42-54 % Mean Corpuscular Volume 77.6 L 79-99 fL Mean Corpuscular Hemoglobin 24.7 L 27.0-33.0 pg Mean Corpuscular Hemoglobin Concent 31.8 L 32.0-36.0 g/dL Red Cell Distribution Width 23.3 H 11.0-15.5 % Platelet Count 378 130-400 K/uL Mean Platelet Volume 10.4 7.5-10.5 fL Segmented Neutrophils % 81 H 40-70 % Lymphocytes % (Manual) 12 L 22-44 % Monocytes % (Manual) 7 2-9 % Nucleated Red Blood Cells 0.0 0.0-0.19 % Differential Comment MANUAL DIFFERENTIAL White Cell Morphology Comment Platelet Morphology Comment ADEQUATE Red Blood Cell Morphology See comments Sodium Level 130 L 136-145 mmol/L Potassium Level 4.1 3.5-5.1 mmol/L Chloride Level 94 L 101-111 mmol/L Carbon Dioxide Level 31 21-32 mmol/L Blood Urea Nitrogen 34 H 7-18 mg/dL Creatinine 0.8 0.5-1.3 mg/dL Glomerular Filtration Rate Calc 118 >90 mL/min Random Glucose 130 H 70-105 mg/dL Total Calcium 8.5 8.5-10.1 mg/dL Phosphorus Level 4.2 2.5-4.9 mg/dL Magnesium Level 2.00 1.80-2.40 mg/dL Total Bilirubin 1.1 #H 0.2-1.0 mg/dL Aspartate Amino Transf (AST/SGOT) 82 H 10-37 U/L Alanine Aminotransferase (ALT/SGPT) 104 H 12-78 U/L Alkaline Phosphatase 308 H 50-136 U/L Total Protein 7.2 6.0-8.3 g/dL Albumin 2.3 L 3.5-5.0 g/dL Test 05/07/25 20:30 05/07/25 07:59 05/06/25 21:11 Range/Units Vancomycin Level Trough 13.5 # 10.0-20.0 UG/ML Immature Granulocyte % (Auto) 3.6 H 0-1 % Neutrophils (%) (Auto) 73.4 40.0-77.0 % Lymphocytes (%) (Auto) 11.3 L 21.0-51.0 % Monocytes (%) (Auto) 11.1 3.0-13.0 % Eosinophils (%) (Auto) 0.2 0.0-8.0 % Basophils (%) (Auto) 0.4 0.0-5.0 % Neutrophils # (Auto) 13.4 H 1.8-7.7 K/uL Lymphocytes # (Auto) 2.1 1.0-4.8 K/uL Monocytes # (Auto) 2.0 H 0.1-1.0 K/uL Eosinophils # (Auto) 0.03 0.00-0.70 K/uL Basophils # (Auto) 0.07 0.00-0.20 K/uL Absolute Immature Granulocyte (auto 0.66 0-1 K/uL Uric Acid 4.4 2.6-7.2 mg/dL Thyroid Stimulating Hormone (TSH) 6.43 H 0.36-3.74 uIU/mL Bedside Glucose Comment Notified Nurse ASSESSMENT: Hypoxic respiratory failure, requiring oxygen support. Staphylococcus epidermidis bacteremia, which is a contaminant. Leukocytosis. Right knee osteoarthritis. Bilateral pulmonary nodules consistent with metastatic disease, s/p lung biopsy. Small-bowel obstruction, resolved. Acute renal failure, resolved. Morbid obesity. Recent Colorectal mass with resection and colostomy creation. Right upper extremity DVT. Debility. PLAN: Continue Meropenem. Continue fluconazole.. Continue vancomycin per pharmacy protocol. Continues on heparin drip. Continue oxygen support. Continue GI prophylaxis. Continue pain management. Monitor for bleeding. Continue physical therapy. Continue on Clinimix. Scheduled for Por A cath placement for today. This case was reviewed and discussed with my supervising physician Dr. Richards and the above assessment and plan was formulated and agreed upon. ATTESTATION BY PHYSICIAN I have seen and examined the patient. I reviewed the documentation, medical decision making, and treatment plan as noted by the mid-level provider above. I agree with the findings and plan of care. JULIANNA RICHARDS MD, [facility] May 08, 2025 20:20
[2025-05-09] VITALS (11 sets, daily range): BP systolic 110–117; BP diastolic 52–71; PULSE 84–104; RESP 18–25; TEMP 98.2–99.7; O2SAT 93–99
--- NOTE | 2025-05-09 04:58 | CCATH ---
PROCEDURE PERFORMED: Fluoroscopy and ultrasound guidance, placement of a right internal jugular Port-a-Cath single port. The patient was given at the start of the procedure 50 mcg of fentanyl and 1 mg of Versed. DESCRIPTION OF PROCEDURE: Under ultrasound guidance, using an 18-gauge needle, the right internal jugular vein was accessed. The left internal jugular vein was not accessed due to being diminutive in size. After access an angiographic wire was introduced. Angiographic wire was introduced into the superior vena cava and to the inferior vena cava. In the right midclavicular region, a pocket was created with 1% Xylocaine with a 3-cm incision. A pocket was bluntly dissected. After this, a tunneling was performed from the right mid clavicle to the access site of the neck. An 8-Turkmen single port Port-a-Cath was introduced into the pocket and tunneled into the neck and introduced into the cavoatrial junction using a peel-away sheath catheter. The Port-a-Cath was flushed with saline with good blood return and then followed by flushed with heparin. The Port-a-Cath skin site was closed subcuticular with 3-0 Vicryl. Follow-up chest radiographs demonstrated the Port-A-Cath to be in satisfactory position and the tip of the catheter is at cavoatrial junction. The patient tolerated the procedure well. TID: [id number] RECEIPT: [id number]
[2025-05-09 07:04] LABS: NUCLEATED RED BLOOD CELLS 0.0 % (0.0-0.19); PLATELET COUNT (AUTO) 334.0 K/uL (130-400); RED BLOOD CELL COUNT(AUTO) 4.85 MIL/uL (4.50-6.20); RED CELL DISTRIBUTION WIDTH 22.8 % (11.0-15.5); WHITE BLOOD COUNT (AUTO) 24.8 K/uL (4.8-10.8)
[2025-05-09 07:24] LABS: ASPARTATE AMINOTRANSFERASE 56.0 U/L (10-37); CREATININE 0.9 mg/dL (0.5-1.3); GLOMERULAR FILTR. RATE CALC 114.0 mL/min (>90); GLUCOSE,RANDOM 126.0 mg/dL (70-105); SODIUM SERUM 132.0 mmol/L (136-145); TOTAL PROTEIN, SERUM 7.5 g/dL (6.0-8.3); UREA NITROGEN, BLOOD 29.0 mg/dL (7-18)
--- NOTE | 2025-05-09 12:06 | PN ---
[facility] PROGRESS NOTE Date of Service: May 09, 2025 Time of Service: 12:04 SUBJECTIVE: 04/20 the patient has been seen and examined at bedside, case discussed with the RN, no acute events overnight, the time of my visit, the patient is awake, following commands, blood pressure 140/90, afebrile, saturating normal on room air. The patient is morbidly obese, he uses a CPAP at home, currently CPAP at bedside during my visit. WBC 14.0, hemoglobin 10.4, hematocrit 34.8, platelet count of 305. CMP shows sodium 141, potassium 3.5, BUN 70, creatinine 0.9, iron level of 25. X-ray of the knee showing moderate to severe three, power mental right knee osteoarthritis, predominantly in the lateral compartment, with small joint effusion. No acute fracture. Orthopedic physician consultation requested, we will follow input and recommendation. MRI of the right knee requested, however due to morbid obesity, might not be able to do it. Discussed with the mother is at the bedside, all questions answered, in agreement. 04/21 patient has been seen and examined at bedside, case discussed with the RN, no acute events overnight, the time my visit he is awake, following commands, admits mild dry nonproductive cough, spiked fever 102.6. Denied chest pain, shortness shortness for breath, no nausea, no vomiting, no abdominal discomfort. The patient has a colostomy bag, on examination, liquid stool noted. WBC slowly trending down at 12.7, hemoglobin stable 11.6. Magnesium 1.7. Added doxycycline 100 mg IV q.12 hours. Follow serology to include SARS antigen, influenza and rapid strep. We will give magnesium sulfate 2 g IV x1. We will order GI stool panel. Patient is scheduled for MRI to the right knee today, continue lidocaine patch, discussed with the orthopedic physician today, we will follow input and recommendation. 04/22 patient is seen and examined at bedside, discussed with the RN. Patient currently feels nauseated. He admits mild discomfort to the right lower quadrant. BP 135/77, mildly tachycardic at 108, saturating normal on room air. Maximum temperature last 24 hours 102.7. CBC shows a hemoglobin of 11.6, hematocrit 35.7, platelet count of 276, with a platelet count of 23.8. Creatinine 2.1. MRI of the right knee shows tricompartmental osteoarthritis with osteophytosis and diffuse cartilage loss, medial and lateral meniscal with complex degenerative tear involving posterior horns and bodies, meniscal tear severity grade 3, full-thickness chondral defect of the lateral femoral condyle, with a underlying subchondral edema, small reactive joint effusion with mild synovitis. We will upgraded the patient to the PCU, LR at 50 mL/hours, follow repeat CBC, CMP and magnesium level. Continue Rocephin and doxycycline IV. We will order a CT of the abdomen and pelvis without contrast to rule out intra- abdominal acute pathology. Orthopedic input noted and appreciated, patient with bad arthritis, we will finally benefit from knee replacement, however considering his morbid obesity, it is not indicated right now. Recommended co nservative approach. Mother at bedside, all questions answered, updated, in agreement with plan of care. 04/23 patient is seen and examined at bedside, discussed with the RN, no acute events overnight, patient upgraded to the ICU yesterday due to sepsis and developing small bowel obstruction. Today the patient is awake, following commands, he is NPO, NG tube to intermittent suction, BP 120/76, heart rate of 111, saturating 96% 3 L nasal cannula, temperature 98.4. WBC of 27.6, hemoglobin 10.6, hematocrit 35.5, platelet count 240, creatinine improved to 1.2. Septic workup with blood culture positive for Staphylococcus epidermidis. Echocardiogram and chest x-ray pending. Patient will remain admitted to the ICU, continue broad-spectrum IV antibiotics, we will follow surgical input recommendation. Continue to follow critical Care and ID input and recommendation. And we will update the mother regarding results of CT of the abdomen pelvis and further plan of care when she is present in the room. CT abdomen and pelvis reviewed, as follows: * Patient is undergoing mass evaluation. * Interval progression since 22 April 2025 with a new right upper lobe spiculated infiltrative mass measuring 5.4 ??? 4.6 cm infiltrating mediastinal pleura and abutting the right main pulmonary artery. * Bulky mediastinal lymphadenopathy with largest node measuring 4 cm, involving right paratracheal, prevascular, precarinal, and subcarinal stations, increased since prior study. * Multiple bilateral spiculated pulmonary nodules (1???2.5 cm), consistent with metastatic disease progression. * Bilateral marked diffuse adrenal enlargement (Right 5.9 ??? 3.6 cm, Left 7.6 ??? 5.4 cm), likely metastatic or hyperplastic. 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 * Degenerative thoracolumbar spondylosis with L4 vertebral body wedging (30???40% height loss), unchanged. * Comparison is made with the exam dated 22 April 2025. Overall findings indicate worsening metastatic disease with new primary and gloria lesions and mechanical bowel obstruction requiring clinical and surgical correlation. Recommendations include oncologic evaluation and PET-CT staging, alongside urgent surgical consultation for bowel obstruction. 04/24 patient is seen and examined at bedside, discussed with the RN, no acute events overnight, patient downgraded from the ICU to the PCU, he remains NPO, NG tube connected to intermittent suction, output in the last 12 hours 200 mL. BP 146/150, heart rate of 101, afebrile, saturating 96-97% on nasal cannula. CBC shows a hemoglobin of 9.9, hematocrit 33.5, platelet count of 235, with WBC of 21.3. CMP with sodium 146, potassium 3.8, BUN of 18, creatinine 0.9, magnesium 1.8. Blood culture 04/21/2025 positive for Staphylococcus epidermidis. Repeat blood cultures 04/23/2025 no growth after 24 hours echocardiogram 04/23/2025 LVEF 50-55%, no left ventricle thrombus, no intracardiac masses, no valvular vegetations. Today chest x-ray pending. Patient will remain admitted to the PCU, NPO, intermittent suction, continue to follow surgical input recommendation, continue broad-spectrum IV antibiotics, follow WBC in a.m.. Follow KUB. I HAVE CONTACTED THE DEPARTMENT OF MEDICAL RECORDS [facility], SPOKE WITH ZENA AT PHONE NUMBER [phone], I HAVE REQUESTED MEDICAL RECORDS. WE WILL FOLLOW UP. 04/25 patient is seen and examined at bedside, case discussed with the RN, no acute events overnight, he remains comfortably in bed, NPO, NG tube to intermittent suction, he is awake, following commands, BP 128/90, area of 101, afebrile. Still feels distended. On examination colostomy bag, enema output noted. KUB pending. KUB from 04/24/2025 showing markedly dilated small bowel loops up to 5.6 cm, consistent with distal small-bowel obstruction, no pneumoperitoneum, pneumatosis intestinalis or portal venous gas. I received medical records from [facility], patient was admitted on 11/19/2024 and discharged 12/08/2024. Areolar in the hospital patient underwent exploratory laparoscopy, laparotomy and creation of transverse loop colostomy 11/28/2024. Patient was evaluated by oncologist Braulio Bell. 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 Per my discussion with the mother, from [facility] the patient was discharged to [facility] to recover and from there he went home. Patient has not had a follow up appointment with the general surgeon or oncologist after that. We have requested Oncology consultation here during this admission. Pathology report from rectal biopsy shows moderately differentiated adenocarcinoma, then new pulmonary nodules and mediastinal lymphadenopathy as per CT scan indicates the possibility of metastatic disease. CEA is [id number]. Re quested pulmonary nodule biopsy by IR. Patient will remain admitted to the PCU, we will continue NG tube to intermittent suction, NPO, TPN, follow surgical input and recommendation. Follow repeat KUB. Mother at bedside, updated, all questions answered. Plan of care discussed with the patient as well, in agreement. 04/26 patient is seen and examined at bedside, discussed with the RN, no acute events overnight, patient is status post CT-guided biopsy of left anterior rib mass, 04/26/2025, tolerated the procedure well. At the time of my visit, he is awake, following commands, denied chest pain, shortness shortness for breath, no nausea, no vomiting. Colostomy bag full of air. No stool or liquid noted. Plan is for the patient to start clear liquid diet and advanced as tolerated. We will follow results of pathology. Continue to follow a.m. labs. Mother at bedside, updated. 04/27 patient is seen and, discussed with the RN, no acute events overnight, alert oriented x3, tolerating clear liquid diet. Passing gas in the colostomy bag but no bowel movement yet. Patient was swollen to the right upper extremity. Doppler showing deep venous thrombosis involving the right axillary vein and brachial veins, nonocclusive thrombosis of the right cephalic vein (superficial venous thrombosis). Correlate clinically for pulmonary embolism risk. Hemoglobin of 10.4, hematocrit 35.9, platelet count of 18.7. Findings of Doppler discussed with the mother, we will start the patient on heparin drip, risks versus benefits discussed, agreed to proceed with the anticoagulation. We will insert midline in the left upper extremity. We will continue to clinically monitor the patient.status post CT-guided biopsy of left anterior rib mass, 04/26/2025, follow up pathology. Continue to follow oncology input and recommendation. 04/28 patient is seen and, discussed with the RN, no acute events overnight, alert oriented x3, remains admitted to the PCU, alert oriented x3 at the time of my visit, tolerating soft diet, passing gas but no BM yet. Doppler showing deep venous thrombosis involving the right axillary vein and brachial veins, nonocclusive thrombosis of the right cephalic vein (superficial venous th rombosis). Continue heparin drip. Oncology input noted and appreciated. Patient will need Port-A-Cath insertion before discharge home. status post CT- guided biopsy of left anterior rib mass, 04/26/2025, follow up pathology. Continue broad-spectrum IV antibiotics, trend WBC in a.m. per mother at bedside, updated. 04/29/25 The patient continue with Heparin drip given to DVT right axillary vein and brachial vein: will transition to po close to discharged. This patient will need Port-A-Cath insertion before discharge home. This patient need to be clear for Port-A-Cath insertion by infectious disease 04/30/25 patient is lying in bed primary nurse reports no events overnight. Patient we will have IR place Port-A-Cath tomorrow. Patient continues with broad-spectrum antibiotics continues heparin drip transitioned to p.o. post procedure. 05/01 patient is seen and, discussed with the RN, no acute events overnight, alert oriented x3, remains admitted to the PCU, alert oriented x3 at the time of my visit, tolerating soft diet, passing gas but no BM yet. Doppler showing deep venous thrombosis involving the right axillary vein and brachial veins, nonocclusive thrombosis of the right cephalic vein (superficial venous thrombosis). Continue heparin drip. Oncology input noted and appreciated. Patient will need Port-A-Cath insertion before discharge home. IR consultation requested. status post CT-guided biopsy of left anterior rib mass, 04/26/2025, follow up pathology. Continue broad-spectrum IV antibiotics, trend WBC in a.m. per mother at bedside, updated. On physical examination, only small liquid output from colostomy bag, no solid stool noted. Discussed with surgery, recommended small-bowel series. Continue to trend WBC in a.m.. Patient may require transfer to higher level of care, we will discuss with case management. 05/02 patient is seen and, discussed with the RN, no acute events overnight, alert oriented x3, remains admitted to the PCU, alert oriented x3 at the time of my visit, tolerating soft diet, passing gas. Colostomy bag on exam looks more full compared to yesterday however not solid stool yet. Discussed with the surgery yesterday, recommended small-bowel series, likely to be completed today, we will follow up. 05/03 patient is seen and examined at bedside, discussed with the RN, no acute events overnight, patient remains comfortably in bed, alert oriented x3, feels hungry, passing gas, liquid stool noted in colostomy bag, still pending to complete small-bowel series. Patient remains on heparin drip, swollen to the right upper extremity almost resolved. Denies pain to the right upper arm. Continue to follow a.m. labs. Oncology input noted and appreciated, biopsy consistent with adenocarcinoma. Patient has stage IV colorectal cancer with metastatic disease to the lung. Peripheral bloood smear shows microcytic hypochromic anemia consistent with iron deficiency anemia . There is teardrop cell, pelger huet cell and rouleaux formation .Increased number of WBCs observed with neutrophilia and hypersegmented neutrophils suggestive of underlying infection . Band cells observed. Platelet morphology and count within normal limits .Discussed with the mother at bedside, all questions answered. In agreement. 05/04 patient is seen and examined at bedside, discussed with the RN, no acute events overnight, patient remains comfortably in bed, alert oriented x3, small- bowel series done 05/02/2025, still pending report. Continue the patient on TPN . Mother at bedside, updated. Follow a.m. labs. 05/05 patient is seen and examined at bedside, discussed with the RN, no acute events overnight, during my visit comfortably in bed, alert oriented x3, on TPN, results of small-bowel series no evidence of obstruction, patient is started on clear liquid diet. We will advance to soft diet today. Mother and father at bedside during my visit, updated. Per the mother, she stated that the patient is still have pain on both knees on is trying to work with the physical therapist. We will start the patient on Toradol 15. mg IV every 6 hours as needed monitor renal function in a.m.. Continue to follow CBC in a.m. transfuse as needed. Hematology and ID input noted and appreciated. 05/06 patient is seen and examined at bedside, discussed with the RN, no acute events overnight, during my visit comfortably in bed, alert oriented x3, patient was started on full liquid diet yesterday, however had episode of vomiting. He is still on TPN. Today blood pressure 153/99, afebrile, saturating 97% 2 L nasal cannula. Hemoglobin 10.7, hematocrit 34.2, WBC 17.1. Sodium level 129, with a 4.6, BUN 32, creatinine 0.7, magnesium 2.3. We will keep the patient on clear liquid diet. We will discuss case with the General surgery. Hold TPN as the patient with a hyponatremia, also on Lasix 20 mg IV b.i.d.. Continue Reglan and dexamethasone IV. Encourage out of bed to chair. Follow a.m. labs. Mother at bedside, updated, all questions answered. 05/07 patient is seen and examined at bedside, discussed with the RN, no acute events overnight, during my visit comfortably in bed, alert oriented x3, patient is started on GI soft diet yesterday, tolerated well, no nausea, no vomiting, no abdominal discomfort. Sodium level 128, we will discontinue TPN. Continue to follow level in a.m.. Continue to encourage out of bed to chair. Physical therapy to evaluate the patient. Continue to follow oncology input recommendation terms of Port-A-Cath placement prior to discharge. Currently patient remains on heparin drip. Mother and father at bedside, updated, all questions answered. 05/08 patient is seen and examined at bedside, discussed with the RN, no acute events overnight, comfortably in bed, following commands, tolerating diet, no nausea, no vomiting, no abdominal discomfort. Patient is scheduled for Port-A-Cath placement today by IR. Continue broad-spectrum antibiotics, follow a.m. labs. 05/09 patient is seen and examined at bedside, discussed with the RN, no acute events overnight, comfortably in bed, following commands, tolerating diet, no nausea, no vomiting, no abdominal discomfort. Patient is status post Po rt-A-Cath placement today by IR 05/08/25, tolerated the procedure well. Continue broad-spectrum antibiotics, follow a.m. labs. We will discuss discharge plan with case management today. Mother at bedside, updated, questions answered. REVIEW OF SYSTEMS CONSTITUTIONAL: Denies fevers, chills, or night sweats. No unintentional weight loss reported. NEUROLOGICAL: Denies headache, amaurosis fugax, motor weakness, sensory deficit, vertigo/spinning sensation, gait abnormalities, or tremors. ENT: No hearing loss, otalgia, otorrhea, rhinitis, rhinorrhea, hoarseness, or sore throat. CARDIOVASCULAR: Denies any exertional angina, dyspnea on exertion, orthopnea, paroxysmal nocturnal dyspnea, palpitations, life-threatening arrhythmias, claudication. PULMONARY: Denies any shortness of breath, cough, phlegm/sputum, hemoptysis, pleuritic chest pain. SLEEP: Denies morning headaches, daytime somnolence or napping. Denies difficulty falling asleep, staying asleep, waking from sleep. Denies knowledge of snoring. GASTROINTESTINAL: Denies any type of dysphagia to either liquids or solids. Denies nausea, vomiting, pyrosis, early satiety, abdominal pain, diarrhea, constipation, or changes in stool consistency or caliber. Denies coffee-ground emesis, hematemesis, hematochezia, or melanotic stools. GENITOURINARY: Denies frequency, urgency, nocturia, hematuria or incontinence (Storage/Irritative symptoms.) Low urinary stream, straining to void, urinary intermittency or hesitancy, splitting of the voiding stream, terminal dribbling. ENDOCRINOLOGIC: Denies polyuria, polydipsia, polyphagia or heat/cold intolerances. HEMATOLOGIC: Denies thrombophilia/previous clots, or coagulopathy/bleeding disorders. ONCOLOGIC: Denies personal history of malignancy. DERMATOLOGIC: Denies rashes or pruritus. PSYCHIATRIC: Denies any suicidal or homicidal ideation. Denies hallucinations. PHYSICAL EXAM GENERAL APPEARANCE: Patient awake, following commands, NG tube to intermittent suction. NEUROLOGICAL: Cranial nerves II-XII grossly intact. Motor is 5/5 in bilateral upper and lower extremities proximal to distal. No sensory deficits. HEENT: Face is symmetric. Pupils are equal and reactive. Extraocular movements are intact. NECK: Supple. No JVD. No thyromegaly. No submental, submandibular, pre- /postauricular, occipital or supraclavicular lymphadenopathy. CHEST: Normal chest expansion. No Telemetry. LUNGS: Absence of any rales, rhonchi or any wheezing. CARDIOVASCULAR: Regular. S1 and S2 normal. No appreciable rubs, murmurs or gallops. ABDOMEN: Liquid output colostomy bag noted. : Deferred. No Doe. EXTREMITIES: Mild swelling to the right knee area, lidocaine patch in place. SKIN: No skin breakdown. Vital Signs (last 8hr) Date Time Temp Pulse Resp B/P (MAP) Pulse Ox O2 Delivery O2 Flow Rate FiO2 05/09/25 08:00 98.8 98 19 110/61 93 Room Air 05/09/25 06:39 102 18 N/A Room Air 21 LABS: Laboratory: Test 05/09/25 10:59 05/09/25 09:30 05/09/25 06:48 05/08/25 08:50 Range/Units Whole Blood Glucose 132 H 70-110 MG/DL Vancomycin Level Trough 32.8 #*H 10.0-20.0 UG/ML White Blood Count 24.8 H 4.8-10.8 K/uL Red Blood Count 4.85 4.50-6.20 MIL/uL Hemoglobin 11.9 L 14.0-18.0 g/dL Hematocrit 38.6 L 42-54 % Mean Corpuscular Volume 79.6 79-99 fL Mean Corpuscular Hemoglobin 24.5 L 27.0-33.0 pg Mean Corpuscular Hemoglobin Concent 30.8 L 32.0-36.0 g/dL Red Cell Distribution Width 22.8 H 11.0-15.5 % Platelet Count 334 130-400 K/uL Mean Platelet Volume 10.9 H 7.5-10.5 fL Nucleated Red Blood Cells 0.0 0.0-0.19 % Activated Partial Thromboplast Time 35.5 # 26.3-35.5 SEC Sodium Level 132 L 136-145 mmol/L Potassium Level 4.2 3.5-5.1 mmol/L Chloride Level 93 L 101-111 mmol/L Carbon Dioxide Level 30 21-32 mmol/L Blood Urea Nitrogen 29 H 7-18 mg/dL Creatinine 0.9 0.5-1.3 mg/dL Glomerular Filtration Rate Calc 114 >90 mL/min Random Glucose 126 H 70-105 mg/dL Total Calcium 8.9 8.5-10.1 mg/dL Magnesium Level 2.10 1.80-2.40 mg/dL Total Bilirubin 2.0 H 0.2-1.0 mg/dL Aspartate Amino Transf (AST/SGOT) 56 H 10-37 U/L Alanine Aminotransferase (ALT/SGPT) 72 12-78 U/L Alkaline Phosphatase 320 H 50-136 U/L Total Protein 7.5 6.0-8.3 g/dL Albumin 2.4 L 3.5-5.0 g/dL Procalcitonin 1.27 H 0.05-0.5 ng/mL Prothrombin Time 11.5 9.6-11.6 SEC Prothromb Time International Ratio 1.09 0.85-1.15 Test 05/08/25 01:59 Range/Units Segmented Neutrophils % 81 H 40-70 % Lymphocytes % (Manual) 12 L 22-44 % Monocytes % (Manual) 7 2-9 % Differential Comment MANUAL DIFFERENTIAL White Cell Morphology Comment Platelet Morphology Comment ADEQUATE Red Blood Cell Morphology See comments Phosphorus Level 4.2 2.5-4.9 mg/dL Current Medications Medications (Trade) Dose Ordered Sig/Checo Route PRN Reason Start Time Stop Time Status Last Admin Dose Admin Acetaminophen (TYLenol 325MG TAB) 650 mg Q6H PRN PO FEVER/pain 1-3 04/19/25 22:00 05/19/25 21:59 05/05/25 11:49 650 MG Benzocaine (Cepacol Sore Throat Lozenge) 1 each Q4H PRN MM SORE THROAT 05/06/25 11:30 06/05/25 11:29 05/07/25 08:43 1 EACH Benzonatate (Tessalon 100mg Caps) 100 mg Q8H PRN PO COUGH 05/03/25 11:00 06/02/25 10:59 05/03/25 11:32 100 MG Cefepime HCl (MAXipime 2 gm vial) 2 gm Q8H IVPB 04/22/25 13:00 04/30/25 13:07 DC 11/2/25 04:27 2 GM Cefepime HCl (MAXipime 2 gm vial) 2 gm Q8H IVPB 04/30/25 16:00 05/01/25 12:05 DC 05/01/25 00:34 2 GM Ceftriaxone Sodium (ROCEphine 1G INJ) 1 gm Q24H IVPB 04/20/25 10:00 04/22/25 12:41 DC 04/22/25 10:53 1 GM Dexamethasone Sodium Phosphate (dexaMETHasone 4MG/ML 1ML VIAL) 10 mg Q24H IV 05/01/25 17:00 05/02/25 09:13 DC 05/01/25 17:22 10 MG Dexamethasone Sodium Phosphate (dexaMETHasone 10MG/ML 1ML VIAL) 10 mg Q24H IV 05/02/25 17:00 05/06/25 11:21 DC 05/05/25 17:42 10 MG Dextrose 1,000 ml @ 50 mls/hr Q20H IV 04/25/25 08:00 04/25/25 16:53 DC 04/25/25 10:38 100 MLS/HR Doxycycline Hyclate 250 ml @ 125 mls/hr Q12H IV 04/21/25 08:30 04/22/25 12:41 DC 04/22/25 08:14 125 MLS/HR Enoxaparin Sodium (Lovenox) 40 mg DAILY SQ 04/20/25 09:00 04/22/25 20:00 DC 04/22/25 08:14 40 MG Enoxaparin Sodium (Lovenox) 40 mg Q12H SQ 04/22/25 21:00 04/27/25 13:24 DC 04/27/25 08:10 40 MG Famotidine (Pepcid 20mg Vial) 20 mg BID IV 05/02/25 21:00 05/06/25 11:27 DC 05/06/25 09:13 20 MG Famotidine (Pepcid 20mg Tab) 20 mg DAILY PO 04/20/25 09:00 05/02/25 12:03 DC 04/30/25 09:23 20 MG Fluconazole (DiFLUCan 100 mg TAB) 200 mg Q24H PO 05/01/25 12:30 05/02/25 12:03 DC Fluconazole/ Sodium Chloride (DiFLUCan 200 MG/ NS 100 ML) 200 mg Q24H IVPB 05/02/25 12:00 06/01/25 11:59 05/09/25 11:21 200 MG Furosemide (LASix 20MG VIAL) 20 mg Q12H IV 04/29/25 11:00 05/29/25 10:59 05/09/25 11:21 20 MG Furosemide (LASix 20MG VIAL) 20 mg Q8H IV 04/24/25 19:00 04/25/25 03:01 DC 04/25/25 03:06 20 MG Heparin Sodium (Porcine) (HEParin 5,000 UNIT VIAL) *calculation based on ACTUAL B... AD PRN IV HEPARIN PROTOCOL 04/27/25 14:00 05/27/25 13:59 05/09/25 08:25 5,862 UNIT Heparin Sodium/ Dextrose 250 ml @ 0 mls/hr Q6H IV 04/27/25 14:00 05/27/25 13:59 05/09/25 04:02 23.1 MLS/HR Hydralazine HCl (APRESOLine 20MG INJ) 5 mg Q6H PRN IV For:SBP above 160;DBP above 90 04/20/25 16:00 05/20/25 15:59 Hydralazine HCl (APRESOLine 20MG INJ) 10 mg Q6H PRN IV For:SBP above 160;DBP above 90 04/19/25 22:00 04/20/25 10:52 DC Hydromorphone HCl (DiLAUDid 0.5MG INJ) 0.5 mg Q4H PRN IVP SEVERE PAIN (7-10) 04/22/25 20:00 04/27/25 19:59 DC Ipratropium [place] (AtrovENT UD) 0.5 MG Q6H PRN IH SHORTNESS OF BREATH 04/28/25 19:30 05/28/25 19:29 04/29/25 11:10 0.5 MG Iron Sucrose (VenoFER) 200 mg DAILY IV 04/26/25 09:00 04/28/25 11:00 DC 04/28/25 09:20 200 MG Ketorolac Tromethamine (toRADol) 15 mg Q6H PRN IM MODERATE PAIN (4-6) 04/30/25 11:30 05/05/25 11:29 DC 05/03/25 14:33 15 MG Ketorolac Tromethamine (toRADol) 15 mg Q6H PRN IV MODERATE PAIN (4-6) 04/20/25 11:00 04/22/25 19:58 DC 04/20/25 22:08 15 MG Ketorolac Tromethamine (toRADol) 15 mg Q6H PRN IV MODERATE PAIN (4-6) 05/05/25 14:30 05/10/25 14:29 05/08/25 11:17 15 MG Labetalol HCl (TRANdate 20MG SYG) 10 mg Q6H PRN IV SUSTAINED HR >120 04/23/25 00:00 05/23/25 00:00 Lactated Ringer's 1,000 ml @ 50 mls/hr Q20H IV 04/21/25 12:30 04/25/25 07:47 DC 04/24/25 02:58 75 MLS/HR Lactated Ringer's 1,000 ml @ 100 mls/hr Q10H IV 04/19/25 22:00 04/20/25 10:52 DC 04/21/25 12:40 100 MLS/HR Lactulose (Constulose 20gm/ 30ml Udcup) 20 gm ACHS PRN PO CONSTIPATION 04/29/25 20:00 04/30/25 13:06 DC 04/30/25 09:33 20 GM Lactulose (Constulose 20gm/ 30ml Udcup) 20 gm BID PRN PO CONSTIPATION 04/19/25 22:00 04/29/25 19:41 DC Lactulose (Constulose 20gm/ 30ml Udcup) 20 gm Q6HWA PRN PO CONSTIPATION 04/30/25 13:00 05/30/25 12:59 Lidocaine (Lidocaine Patch 4%) 1 each DAILY TP 04/21/25 09:00 05/21/25 08:59 05/09/25 07:48 1 EACH Magnesium Sulfate 50 ml @ 0 mls/hr PROTOCOL IV 04/21/25 08:30 05/21/25 08:29 04/24/25 06:11 25 MLS/HR Meropenem (Merrem 1gm) 1 gm Q8H IVPB 05/01/25 12:30 05/02/25 12:29 DC 05/02/25 04:15 1 GM Meropenem (Merrem 1gm) 1 gm Q8H IVPB 05/04/25 16:30 05/14/25 16:29 05/09/25 07:48 1 GM Metoclopramide HCl (regLAN 10MG IV) 10 mg Q6H6 IVP 05/01/25 18:00 05/31/25 17:59 05/09/25 11:21 10 MG Metronidazole/ Sodium Chloride 100 ml @ 100 mls/hr Q8H6 IVPB 04/22/25 14:00 05/02/25 13:59 DC 05/02/25 09:55 100 MLS/HR Morphine Sulfate (morPHINE 4MG SYG) 4 mg Q4H PRN IVP SEVERE PAIN (7-10) 04/19/25 22:00 04/20/25 10:52 DC Nystatin (NystOP 15 GM POWDER) 1 APPLICATION BID TP 04/26/25 14:00 05/26/25 13:59 05/09/25 08:17 1 APPL Ondansetron HCl (zoFRAN 4MG INJ) 4 mg Q6H PRN IV NAUSEA/VOMITING 04/19/25 22:00 05/19/25 21:59 04/24/25 22:19 4 MG Pantoprazole Sodium (PROTonix 40MG INJ) 40 mg BID IVP 05/06/25 21:00 06/05/25 20:59 05/09/25 07:48 40 MG Pharmacy Profile Note (Pharmacy Communication) 1 each ONCE MISC 05/01/25 12:30 05/01/25 12:11 DC Pharmacy Profile Note (Pharmacy Communication) 1 each ONCE MISC 05/04/25 16:30 05/04/25 16:22 DC Potassium Chloride 100 ml @ 100 mls/hr PROTOCOL PRN IV hypokalemia 05/01/25 21:00 05/31/25 20:59 05/01/25 22:29 100 MLS/HR Promethazine HCl (Phenergan) 12.5 mg Q8H5 PRN IM NAUSEA/VOMITING 04/22/25 12:30 05/22/25 12:29 04/22/25 12:25 12.5 MG Sodium Chloride 500 ml @ 0 mls/hr Q0M STAT IV 04/22/25 13:17 04/22/25 13:22 DC 04/22/25 14:39 600 MLS/HR Vancomycin HCl 250 ml @ 125 mls/hr Q12H IV 05/08/25 09:00 05/18/25 08:59 05/09/25 07:48 125 MLS/HR Vancomycin HCl 250 ml @ 125 mls/hr Q12H IV 05/06/25 08:00 05/08/25 01:53 DC 05/07/25 21:18 125 MLS/HR Vancomycin HCl 250 ml @ 125 mls/hr Q24H IV 05/01/25 05:00 05/06/25 07:19 DC 05/05/25 05:03 125 MLS/HR Vancomycin HCl 250 ml @ 125 mls/hr Q8H IV 04/29/25 21:00 04/30/25 14:25 DC 04/30/25 05:52 125 MLS/HR Vancomycin HCl (Vancomycin Protocol) 1 each AD IV 04/22/25 15:00 04/23/25 22:23 DC Vancomycin HCl (Vancomycin Protocol) 1 each AD IV 04/29/25 11:00 05/13/25 10:59 DIAGNOSTICS / RADIOLOGY: [ ] ASSESSMENT: Severe sepsis with MODS, resolved Leukocytosis Gram-positive cocci bacteremia Status post left rib biopsy by IR on 04/26/2025 New right upper lobe spiculated infiltrative mass measuring 5.4 x 4.6 cm infiltrating mediastinal pleura and albumin in the right main pulmonary artery Bulky mediastinal lymphadenopathy with the largest node measuring 4 cm involving the right paratracheal, prevascular, and subcarinal stations Multiple bilateral spiculated pulmonary nodules consistent with metastatic disease progression Bilateral marked diffuse adrenal enlargement likely metastatic or hyperplastic Left iliac fossa 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 Right upper extremity DVT involving the axillary and brachial veins Small-bowel obstruction Stage IV colorectal cancer with metastatic disease to the lung, pathology consistent with moderately differentiated adenocarcinoma, POA PLAN: patient is seen and examined at bedside, discussed with the RN, no acute events overnight, comfortably in bed, following commands, tolerating diet, no nausea, no vomiting, no abdominal discomfort. Patient is status post Port-A-Cath placement today by IR 05/08/25, tolerated the procedure well. Continue broad- spectrum antibiotics, follow a.m. labs. We will discuss discharge plan with case management today. Mother at bedside, updated, questions answered. NEURO: Minimize central acting medications as possible. Fall Precautions. Well lighted room through the day and minimize interruptions through the night to prevent acute delirium. PULMONARY: Supplemental 02 as needed BiPAP as necessary, for respiratory distress Titrate Fio2 to keep Spo2 > or = 90% DuoNebs and CPT as needed IS hourly while awake for pulmonary hygiene prn Out of bed to chair as tolerated Maintain aspiration precautions at all times CARDIOVASCULAR: Follow hemodynamics. Vital signs per facility protocol GI & NUTRITION: Continue nutritional support Aspirations precautions Prokinetic agents and laxatives as needed KIDNEYS & ELECTROLYTES: Strict monitoring of intake and output Daily weights Avoid nephrotoxic agents Monitor electrolytes and replace as needed Goal urine output of 30mL/hr or 0.5mL/kg/hr Medications to be dosed according to renal function. Avoid contrast if possible ENDOCRINE: Maintain blood glucose between 100-180 at all times. Insulin sliding scale for blood glucose management Hypoglycemia and hyperglycemia protocol in place INFECTIOUS DISEASE: Trend temperature, WBC and procalcitonin level Follow cultures, deescalate antibiotics as soon as possible. Panculture if new onset fever HEMATOLOGY & COAGULATION: Monitor H&H. Keep Hgb > 7 Transfuse 1 unit of PRBC for Hgb < 7 Transfuse 1 pack of platelets of platelets < 20, 000 Watch for any signs and symptoms of bleeding SKIN: Pressure ulcer prevention per facility protocol Specialty mattress as needed ORTHO/REHAB Continue PT/OT PRN: MEDICATIONS Tylenol 650 mg po every 4 hrs for fever zofran 4 mg IV every 6 hrs for n/v Hydralazine 5 mg IV every 4 hrs systolic pressure > 160 bowel regiment: lactulose 20 gm PO BID PRN constipation Supportive measures: Continue GI and DVT prophylaxis Disposition: Pending improvement in clinical condition All questions answered time spent: > 35 min TITA PETERSON MD May 09, 2025 12:06
--- NOTE | 2025-05-09 18:17 | PN ---
[facility] PROGRESS NOTE Date Patient Seen: May 09, 2025 Time of Visit: 18:16 Supervising Physician: Dr. Cecilia Khan Inpatient Consults: Dr. Nguyen, Dr. Abad, Dr. Henry, Dr. Johnson PROBLEM LIST: Severe sepsis with MODS, resolving Leukocytosis Staphylococcus epidermidis bacteremia, which is a contaminant. Status post left rib biopsy by IR on 04/26/2025 New right upper lobe spiculated infiltrative mass measuring 5.4 x 4.6 cm infiltrating mediastinal pleura and albumin in the right main pulmonary artery Bulky mediastinal lymphadenopathy with the largest node measuring 4 cm involving the right paratracheal, prevascular, and subcarinal stations Multiple bilateral spiculated pulmonary nodules consistent with metastatic disease progression (+) adenocarcinoma Stage IV Colorectal cancer with metastatic disease to the lung Bilateral marked diffuse adrenal enlargement likely metastatic or hyperplastic Left iliac fossa 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 deep venous thrombosis involving the right axillary vein and brachial veins INTERVAL HISTORY: 05/01 - Patient seen and examined, all labs and imaging have been reviewed, patient is awake alert and oriented, nursing reports no acute events overnight. Patient is afebrile, vital signs are stable, good sats on nasal cannula 2 L Patient continues on the cefepime, vanc and Flagyl, the last blood cultures positive for from the blood, staph on 04/21 Sputum is pending He continues on duo nebs He is on Lasix 20 mg and we have 520 of urine out in 12 hours Chest x-ray is pending 05/02 - Patient is seen and examined at the bedside. Pt is laying in bed resting quietly accompanied by his mom and other family members. Patient appears to be weak, deconditioned, and hypoxemic requiring 2 L via N/C. Patient continues utilizing Bipap nightly. Pt reports he uses a Cpap at home nightly. Patient continues on multiple broad spectrum antibiotics which are being managed by Dr Nguyen. Most recent cxray shows resolving left upper lung infiltrate. White count slowly trending down. Biopsy results are still pending. Patient continues on heparin drip for DVT. PT was evaluated by Dr Johnson and depending on Lung nodule biopsy results, will plan for genetic phenotyping for targeted therapy if feasible. Pt had a KUB performed which shows partial small bowel obstruction. As per nursing, surgery team has been made aware. Will continue to follow closely. 05/03 - Patient was seen and examined, patient is sitting at the side of the bed. Patient is just back from his small bowel pass through. He states that he has had numerous loose stools and is passing gas. He is hoping to resume his diet shortly. We are waiting on surgery's recommendations Patient is awake alert and oriented reporting no pain or discomfort Good saturations on room air His vital signs are stable We ordered new cultures he continues on Merrem fluconazole and vancomycin 05/04 - patient is seen in the evaluated at the bedside. Patient is sitting up in bed accompanied by his mom. Patient appears to be weak, deconditioned and hypoxemic currently requiring2 L via nasal cannula. Patient continues using a CPAP nightly. Patient remains NPO as suspected small bowel obstruction. Patient had a small bowel series and currently pending official results. Patient does report continues with large watery stools. Patient reports he is hungry in hope to resume his diet soon. Follow surgery recommendations. As per Dr. Johnson's note, patient has stage IV colorectal cancer with metastatic disease to the lungs. Pathology is consistent with moderately differentiated adenocarcinoma. Patient is advised on the importance of getting up out of bed and attempting to work with physical therapy as tolerated. Prognosis remains guarded. Patient continues on broad-spectrum antibiotics per Infectious Disease. White count trending down. 05/05 - patient is seen sitting up in bed continues to be weak, deconditioned hypoxemic requiring 2 L via nasal cannula. Patient continues utilizing his CPAP nightly. No acute changes reported overnight. Patient's small-bowel series shows resolving Gastrografin small-bowel follow-through with24 hour Gastrografin has rates sigmoid colon and transverse colon. Patient has been started on clear liquid diet and instructed to advance as tolerated per surgical team. Patient continues on heparin drip for right upper extremity DVT. Patient continues on multiple broad-spectrum antibiotics as per Infectious Disease. Patient is being followed closely by Oncology. Patient advised to get out of bed and work with physical therapy as tolerated. 05/06-seen and examined the patient while resting in bed with the head of the bed elevated patient has limited mobility, awake alert and oriented in no acute distress with family members present. Reviewed and discussed with family members the patient's assessment condition patient is not short of breath, is not presenting in acute hypoxic respiratory failure, and denies shortness of breath, fever, chills, nauseousness, constipation, and diarrhea currently. Hemodynamically stable. Afebrile a.m. labs have been ordered. Reviewed and discussed with family members diagnostic tests results, vital signs, and laboratory results. 05/07 - patient is seen and evaluated at the bedside. Patient is lying in bed resting quietly accompanied by his mom. Patient is awake alert and oriented x3. Patient with no signs of acute distress. Patient remains on room air denies chest discomfort, chest pain or dyspnea. Patient does appear to be very weak and reports he has not been able to ambulate yet. Patient does sitting at the bedside however still very weak. Patient diet has been advanced and so far tolerating well, with no nausea, vomiting or abdominal pain. Patient reports his last bowel movement was yesterday. Mom reports patient is scheduled for a Port-A-Cath placement tomorrow. Vital signs are stable. 05/08 - patient is seen lying in bed resting quietly with no signs of acute distress. Patient with no signs of acute respiratory distress during my evaluation. Patient is awake alert and oriented x3. patient remains on room air denies chest discomfort, chest pain or dyspnea. No acute changes reported overnight. Patient does continue to be very weak and deconditioned and unable to ambulate. Patient advised to continue working with physical therapy as tolerated. As per nursing, patient is scheduled for Port-A-Cath placement today. From respiratory standpoint, patient is stable. Vital signs are stable. Labs do show patient continues with leukocytosis. Patient continues on broad- spectrum antibiotics as per Infectious Disease. We will continue to follow with you. 05/09-patient assess while resting in bed head of the bed is elevated awake, alert, and oriented, and appearing in no acute distress examined and assess while family members are present. Patient is hemodynamically stable and afebr ile. Reviewed and discussed with family members reports of diagnostic tests, plan of care, treatment plans, medications being utilized, status of and plan catheter to help assist in the treatment of the right lobe metastatic mass. Nursing staff reports no adverse events occurring overnight impacting patient. Further orders per course of stay. A.m. labs ordered. PLAN Supplemental oxygen as needed Wean off as tolerated Continue CPAP nightly and p.r.n. Continue diet as per sx team Follow surgical team recs Continue antibiotics as per Infectious Disease Follow up Dr. Johnson recommendations Pending port a cath placement today REVIEW OF SYSTEMS: 12 point ROS reviewed with patient. Pertinent positives mentioned above. Otherwise negative. PHYSICAL EXAM: GENERAL: alert, obese, weak, awake oriented x 3 HEENT: EOMI, Sclera non icteric, moist mucosa NC NECK: Supple, no JVD, trachea midline LUNGS: Diminished breath sounds bilaterally. No wheezes HEART: Normal rate and rhythm. Normal S1 and S2, without murmurs ABD: morbidly obese Abdomen soft, nontender. Bowel sounds hypoactive EXT: No clubbing cyanosis or edema NEURO: Alert and oriented to person, follows commands Vital Signs (last 8hr) Date Time Temp Pulse Resp B/P (MAP) Pulse Ox O2 Delivery O2 Flow Rate FiO2 05/09/25 16:00 99.7 104 18 113/71 92 Room Air 05/09/25 12:00 98.4 102 18 112/52 92 Room Air LABS: Hematology Labs: Test 05/09/25 06:48 05/08/25 01:59 Range/Units White Blood Count 24.8 H 4.8-10.8 K/uL Red Blood Count 4.85 4.50-6.20 MIL/uL Hemoglobin 11.9 L 14.0-18.0 g/dL Hematocrit 38.6 L 42-54 % Mean Corpuscular Volume 79.6 79-99 fL Mean Corpuscular Hemoglobin 24.5 L 27.0-33.0 pg Mean Corpuscular Hemoglobin Concent 30.8 L 32.0-36.0 g/dL Red Cell Distribution Width 22.8 H 11.0-15.5 % Platelet Count 334 130-400 K/uL Mean Platelet Volume 10.9 H 7.5-10.5 fL Nucleated Red Blood Cells 0.0 0.0-0.19 % Segmented Neutrophils % 81 H 40-70 % Lymphocytes % (Manual) 12 L 22-44 % Monocytes % (Manual) 7 2-9 % Differential Comment MANUAL DIFFERENTIAL White Cell Morphology Comment Platelet Morphology Comment ADEQUATE Red Blood Cell Morphology See comments Chemistry Labs: Test 05/09/25 16:12 05/09/25 06:48 05/08/25 01:59 Range/Units Whole Blood Glucose 142 H 70-110 MG/DL Sodium Level 132 L 136-145 mmol/L Potassium Level 4.2 3.5-5.1 mmol/L Chloride Level 93 L 101-111 mmol/L Carbon Dioxide Level 30 21-32 mmol/L Blood Urea Nitrogen 29 H 7-18 mg/dL Creatinine 0.9 0.5-1.3 mg/dL Glomerular Filtration Rate Calc 114 >90 mL/min Random Glucose 126 H 70-105 mg/dL Total Calcium 8.9 8.5-10.1 mg/dL Magnesium Level 2.10 1.80-2.40 mg/dL Total Bilirubin 2.0 H 0.2-1.0 mg/dL Aspartate Amino Transf (AST/SGOT) 56 H 10-37 U/L Alanine Aminotransferase (ALT/SGPT) 72 12-78 U/L Alkaline Phosphatase 320 H 50-136 U/L Total Protein 7.5 6.0-8.3 g/dL Albumin 2.4 L 3.5-5.0 g/dL Procalcitonin 1.27 H 0.05-0.5 ng/mL Phosphorus Level 4.2 2.5-4.9 mg/dL Coagulation Labs: Test 05/09/25 12:50 05/08/25 08:50 Range/Units Activated Partial Thromboplast Time 99.4 #*H 26.3-35.5 SEC Prothrombin Time 11.5 9.6-11.6 SEC Prothromb Time International Ratio 1.09 0.85-1.15 DIAGNOSTICS / RADIOLOGY RESULTS: [ ] PLAN NEURO: Minimize central acting medications as possible. Maintain fall precautions, adequate lighting during the day PULMONARY: Supplemental 02 as needed. Maintain aspiration precautions at all times CARDIOVASCULAR: Follow hemodynamics. Vital signs per facility protocol GI & NUTRITION: Continue with nutritional support. Continue stool softeners and laxatives as needed. KIDNEYS & ELECTROLYTES: Strict monitoring of intake, output and overall fluid balance. Avoid nephrotoxic medications to the extent possible. Medications to be dosed according to renal function. Monitor electrolytes and replace as needed ENDOCRINE: Maintain blood glucose between 100-180 at all times. Hypoglycemia protocol in place INFECTIOUS DISEASE: Trend temperature, WBC and procalcitonin level Follow cultures, deescalate antibiotics as soon as possible. Panculture if new onset fever ONCOLOGY/HEMATOLOGY/COAGULATION: Monitor for s/s of bleeding Monitor hemoglobin, coagulation studies as needed SKIN: Pressure ulcer prevention per facility protocol Specialty mattress ORTHO/REHAB: Continue PT/OT Prophylaxis: Continue GI and DVT prophylaxis Code Status: Full Resuscitation Disposition: Per primary team LEV ARCHER AGACNP May 09, 2025 18:17
--- NOTE | 2025-05-09 18:57 | PN ---
INFECTIOUS DISEASE PROGRESS NOTE Date of Service: May 09, 2025 SUBJECTIVE: This is a 35-year-old male patient who was seen and examined at bedside in room 319. Patient is s/p Port-A-Cath placement day # 1. Patient continues performing poor with physical therapy due to generalized weakness. We will continue with the aggressive physical therapy. WBC remains elevated at 24.8. We will continue on Meropenem, vancomycin, and fluconazole and continue to monitor patient. PHYSICAL EXAM EYES: Anicteric. Pupils equal and reactive. HENT: No oral thrush seen, moist Oral mucosa. NECK: Supple, no JVD or thyromegaly. LUNGS: Diminished. Oxygen via nasal cannula. CARDIOVASCULAR: S1, S2 regular. No murmur heard. ABDOMEN: Abdomen is large but Soft, bowel sounds present. Left colostomy. CENTRAL NERVOUS SYSTEM: Awake, alert, oriented x 3. SKIN: No rashes, no swelling. LYMPHATICS: No peripheral lymphadenopathy. MUSCULOSKELETAL: Right knee pain. EXTREMITIES: No cyanosis or clubbing. Generalized weakness. BACK: No deformity, no pressure ulcer. GENITOURINARY: No dysuria or hematuria. Vital Sign (Last 12 Hours) 05/09/25 05/09/25 05/09/25 05/09/25 08:00 08:00 12:00 16:00 Temp 98.8 98.4 99.7 Pulse 98 102 104 Resp 19 18 18 B/P (MAP) 110/61 112/52 113/71 Pulse Ox 93 93 92 92 O2 Delivery Room Air* Room Air Room Air Room Air O2 Flow Rate 0 FiO2 21 Intake & Output (last 24hrs) 05/08/25 05/08/25 05/09/25 15:00 23:00 07:00 Intake Total 300 ml 800 ml Output Total 1050 ml 880 ml 1850 ml Balance -1050 ml -580 ml -1050 ml LABS: Laboratory: Test 05/09/25 16:12 05/09/25 12:50 05/09/25 09:30 05/09/25 06:48 Range/Units Whole Blood Glucose 142 H 70-110 MG/DL Activated Partial Thromboplast Time 99.4 #*H 26.3-35.5 SEC Vancomycin Level Trough 32.8 #*H 10.0-20.0 UG/ML White Blood Count 24.8 H 4.8-10.8 K/uL Red Blood Count 4.85 4.50-6.20 MIL/uL Hemoglobin 11.9 L 14.0-18.0 g/dL Hematocrit 38.6 L 42-54 % Mean Corpuscular Volume 79.6 79-99 fL Mean Corpuscular Hemoglobin 24.5 L 27.0-33.0 pg Mean Corpuscular Hemoglobin Concent 30.8 L 32.0-36.0 g/dL Red Cell Distribution Width 22.8 H 11.0-15.5 % Platelet Count 334 130-400 K/uL Mean Platelet Volume 10.9 H 7.5-10.5 fL Nucleated Red Blood Cells 0.0 0.0-0.19 % Sodium Level 132 L 136-145 mmol/L Potassium Level 4.2 3.5-5.1 mmol/L Chloride Level 93 L 101-111 mmol/L Carbon Dioxide Level 30 21-32 mmol/L Blood Urea Nitrogen 29 H 7-18 mg/dL Creatinine 0.9 0.5-1.3 mg/dL Glomerular Filtration Rate Calc 114 >90 mL/min Random Glucose 126 H 70-105 mg/dL Total Calcium 8.9 8.5-10.1 mg/dL Magnesium Level 2.10 1.80-2.40 mg/dL Total Bilirubin 2.0 H 0.2-1.0 mg/dL Aspartate Amino Transf (AST/SGOT) 56 H 10-37 U/L Alanine Aminotransferase (ALT/SGPT) 72 12-78 U/L Alkaline Phosphatase 320 H 50-136 U/L Total Protein 7.5 6.0-8.3 g/dL Albumin 2.4 L 3.5-5.0 g/dL Procalcitonin 1.27 H 0.05-0.5 ng/mL Test 05/08/25 08:50 05/08/25 01:59 Range/Units Prothrombin Time 11.5 9.6-11.6 SEC Prothromb Time International Ratio 1.09 0.85-1.15 Segmented Neutrophils % 81 H 40-70 % Lymphocytes % (Manual) 12 L 22-44 % Monocytes % (Manual) 7 2-9 % Differential Comment MANUAL DIFFERENTIAL White Cell Morphology Comment Platelet Morphology Comment ADEQUATE Red Blood Cell Morphology See comments Phosphorus Level 4.2 2.5-4.9 mg/dL ASSESSMENT: Hypoxic respiratory failure, requiring oxygen support. Staphylococcus epidermidis bacteremia, which is a contaminant. Persistent Leukocytosis. Right knee osteoarthritis. Bilateral pulmonary nodules consistent with metastatic disease, s/p CT guided lung biopsy on 04/26/2025,& s/p Port-A-Cath placement 05/08/2025. Small-bowel obstruction, resolved. Acute renal failure, resolved. Morbid obesity. Recent Colorectal mass with resection and colostomy creation. Right upper extremity DVT. Generalized Debility. PLAN: Continue Meropenem. Continue fluconazole.. Continue vancomycin per pharmacy protocol. Continues on heparin drip. Continue oxygen support. Continue GI prophylaxis. Continue pain management. Monitor for bleeding. Continue with the aggressive physical therapy. Continue nutritional support. This case was reviewed and discussed with my supervising physician Dr. Richards and the above assessment and plan was formulated and agreed upon. ATTESTATION BY PHYSICIAN I have seen and examined the patient. I reviewed the documentation, medical decision making, and treatment plan as noted by the mid-level provider above. I agree with the findings and plan of care. JULIANNA RICHARDS MD, [facility] May 09, 2025 18:57
[2025-05-10] VITALS (11 sets, daily range): BP systolic 115–129; BP diastolic 60–69; PULSE 86–97; RESP 16–22; TEMP 97.3–98.9; O2SAT 94–99
[2025-05-10 04:35] LABS: NUCLEATED RED BLOOD CELLS 0.0 % (0.0-0.19); PLATELET COUNT (AUTO) 267.0 K/uL (130-400); RED BLOOD CELL COUNT(AUTO) 4.2 MIL/uL (4.50-6.20); RED CELL DISTRIBUTION WIDTH 22.3 % (11.0-15.5); WHITE BLOOD COUNT (AUTO) 17.6 K/uL (4.8-10.8)
[2025-05-10 04:43] LABS: INR 1.08 (0.85-1.15)
[2025-05-10 04:57] LABS: ASPARTATE AMINOTRANSFERASE 38.0 U/L (10-37); CREATININE 0.9 mg/dL (0.5-1.3); GLOMERULAR FILTR. RATE CALC 114.0 mL/min (>90); GLUCOSE,RANDOM 125.0 mg/dL (70-105); SODIUM SERUM 129.0 mmol/L (136-145); TOTAL PROTEIN, SERUM 6.8 g/dL (6.0-8.3); UREA NITROGEN, BLOOD 30.0 mg/dL (7-18)
--- NOTE | 2025-05-10 10:47 | PN ---
NEPHROLOGY PROGRESS NOTE Date/Time Patient Seen: May 10, 2025 SUBJECTIVE: This is a 35-year-old male with a past medical history of morbid obesity, colon mass S/p resection with colostomy. He presented to emergency room with complaints of right knee pain. He has had a prolonged hospital stay. He was initially admitted with the acute on chronic renal failure. He does have a history of metastatic disease. S/p lung biopsy consistent with adenocarcinoma, stage IV Colorectal cancer with metastatic disease to the lung The patient's renal function has remained fairly stable in the patient has been seen as a follow up visit for all the above. Renal function is stable Electrolytes show hyponatremia, improving. He continues on antibiotics including vancomycin Continues on Lasix Case management coordinating SNF placement He was seen in the medical floor, in no acute distress Multiple family members at the bedside REVIEW OF SYSTEMS: GENERAL: Positive for generalized weakness NEUROLOGIC: Negative for any blurry vision, blind spots, double vision, facial asymmetry, dysphagia, dysarthria, hemiparesis, hemisensory deficits, vertigo, ataxia. HEENT: Negative for any head trauma, neck trauma, neck stiffness, photophobia, phonophobia, sinusitis, rhinitis. CARDIAC: Negative for any chest pain, dyspnea on exertion, paroxysmal nocturnal dyspnea, peripheral edema. PULMONARY: Negative for any shortness of breath, wheezing, COPD, or TB exposure. GASTROINTESTINAL: Negative for any abdominal pain, nausea, vomiting, bright red blood per rectum, melena. GENITOURINARY: Negative for any dysuria, hematuria, incontinence. INTEGUMENTARY: Negative for any rashes, cuts, insect bites. RHEUMATOLOGIC: Negative for any joint pains, photosensitive rashes, history of vasculitis or kidney problems. HEMATOLOGIC: Negative for any abnormal bruising, frequent infections or blee ding. Vital Signs (last 8hr) Date Time Temp Pulse Resp B/P (MAP) Pulse Ox O2 Delivery O2 Flow Rate FiO2 05/08/25 12:00 97.9 113 21 112/65 95 Room Air 05/08/25 08:00 98.8 103 22 115/67 92 Room Air 05/08/25 07:31 84 18 N/A Room Air 21 PHYSICAL EXAM: GENERAL: Alert and oriented x 3. No acute distress. Well-nourished. EYES: EOMI. Anicteric. HENT: Moist mucous membranes. No scleral icterus. No cervical lymphadenopathy. LUNGS: Clear to auscultation bilaterally. No accessory muscle use. CARDIOVASCULAR: Regular rate and rhythm. No murmur. No JVD. ABDOMEN: Soft, non-tender and non-distended. No palpable masses. EXTREMITIES: No edema. Non-tender. SKIN: No rashes or lesions. Warm. NEUROLOGIC: No focal neurological deficits. CN II-XII grossly intact, but not individually tested. PSYCHIATRIC: Cooperative. Appropriate mood and affect. Current Medications Medications (Trade) Dose Ordered Sig/Checo Route PRN Reason Start Time Stop Time Status Last Admin Dose Admin Acetaminophen (TYLenol 325MG TAB) 650 mg Q6H PRN PO FEVER/pain 1-3 04/19/25 22:00 05/19/25 21:59 04/21/25 02:20 650 MG Benzonatate (Tessalon 100mg Caps) 100 mg Q8H PRN PO COUGH 05/03/25 11:00 06/02/25 10:59 05/03/25 11:32 100 MG Cefepime HCl (MAXipime 2 gm vial) 2 gm Q8H IVPB 04/22/25 13:00 04/30/25 13:07 DC 04/30/25 04:27 2 GM Cefepime HCl (MAXipime 2 gm vial) 2 gm Q8H IVPB 04/30/25 16:00 05/01/25 12:05 DC 05/01/25 00:34 2 GM Ceftriaxone Sodium (ROCEphine 1G INJ) 1 gm Q24H IVPB 04/20/25 10:00 04/22/25 12:41 DC 04/22/25 10:53 1 GM Dexamethasone Sodium Phosphate (dexaMETHasone 4MG/ML 1ML VIAL) 10 mg Q24H IV 05/01/25 17:00 05/02/25 09:13 DC 05/01/25 17:22 10 MG Dexamethasone Sodium Phosphate (dexaMETHasone 10MG/ML 1ML VIAL) 10 mg Q24H IV 05/02/25 17:00 05/31/25 16:59 05/02/25 16:57 10 MG Dextrose 1,000 ml @ 50 mls/hr Q20H IV 04/25/25 08:00 04/25/25 16:53 DC 04/25/25 10:38 100 MLS/HR Doxycycline Hyclate 250 ml @ 125 mls/hr Q12H IV 04/21/25 08:30 04/22/25 12:41 DC 04/22/25 08:14 125 MLS/HR Enoxaparin Sodium (Lovenox) 40 mg DAILY SQ 04/20/25 09:00 04/22/25 20:00 DC 04/22/25 08:14 40 MG Enoxaparin Sodium (Lovenox) 40 mg Q12H SQ 04/22/25 21:00 04/27/25 13:24 DC 04/27/25 08:10 40 MG Famotidine (Pepcid 20mg Vial) 20 mg BID IV 05/02/25 21:00 06/01/25 20:59 05/03/25 10:25 20 MG Famotidine (Pepcid 20mg Tab) 20 mg DAILY PO 04/20/25 09:00 05/02/25 12:03 DC 04/30/25 09:23 20 MG Fluconazole (DiFLUCan 100 mg TAB) 200 mg Q24H PO 05/01/25 12:30 05/02/25 12:03 DC Fluconazole/ Sodium Chloride (DiFLUCan 200 MG/ NS 100 ML) 200 mg Q24H IVPB 05/02/25 12:00 06/01/25 11:59 05/03/25 11:32 200 MG Furosemide (LASix 20MG VIAL) 20 mg Q12H IV 04/29/25 11:00 05/29/25 10:59 05/03/25 10:25 20 MG Furosemide (LASix 20MG VIAL) 20 mg Q8H IV 04/24/25 19:00 04/25/25 03:01 DC 04/25/25 03:06 20 MG Heparin Sodium (Porcine) (HEParin 5,000 UNIT VIAL) *calculation based on ACTUAL B... AD PRN IV HEPARIN PROTOCOL 04/27/25 14:00 05/27/25 13:59 Heparin Sodium/ Dextrose 250 ml @ 0 mls/hr Q6H IV 04/27/25 14:00 05/27/25 13:59 05/02/25 16:59 19.17 MLS/HR Hydralazine HCl (APRESOLine 20MG INJ) 5 mg Q6H PRN IV For:SBP above 160;DBP above 90 04/20/25 16:00 05/20/25 15:59 Hydralazine HCl (APRESOLine 20MG INJ) 10 mg Q6H PRN IV For:SBP above 160;DBP above 90 04/19/25 22:00 04/20/25 10:52 DC Hydromorphone HCl (DiLAUDid 0.5MG INJ) 0.5 mg Q4H PRN IVP SEVERE PAIN (7-10) 04/22/25 20:00 04/27/25 19:59 DC Ipratropium [place] (AtrovENT UD) 0.5 MG Q6H PRN IH SHORTNESS OF BREATH 04/28/25 19:30 05/28/25 19:29 04/29/25 11:10 0.5 MG Iron Sucrose (VenoFER) 200 mg DAILY IV 04/26/25 09:00 04/28/25 11:00 DC 04/28/25 09:20 200 MG Ketorolac Tromethamine (toRADol) 15 mg Q6H PRN IM MODERATE PAIN (4-6) 04/30/25 11:30 05/05/25 11:29 Ketorolac Tromethamine (toRADol) 15 mg Q6H PRN IV MODERATE PAIN (4-6) 04/20/25 11:00 04/22/25 19:58 DC 04/20/25 22:08 15 MG Labetalol HCl (TRANdate 20MG SYG) 10 mg Q6H PRN IV SUSTAINED HR >120 04/23/25 00:00 05/23/25 00:00 Lactated Ringer's 1,000 ml @ 50 mls/hr Q20H IV 04/21/25 12:30 04/25/25 07:47 DC 04/24/25 02:58 75 MLS/HR Lactated Ringer's 1,000 ml @ 100 mls/hr Q10H IV 04/19/25 22:00 04/20/25 10:52 DC 04/21/25 12:40 100 MLS/HR Lactulose (Constulose 20gm/ 30ml Udcup) 20 gm ACHS PRN PO CONSTIPATION 04/29/25 20:00 04/30/25 13:06 DC 04/30/25 09:33 20 GM Lactulose (Constulose 20gm/ 30ml Udcup) 20 gm BID PRN PO CONSTIPATION 04/19/25 22:00 04/29/25 19:41 DC Lactulose (Constulose 20gm/ 30ml Udcup) 20 gm Q6HWA PRN PO CONSTIPATION 04/30/25 13:00 05/30/25 12:59 Lidocaine (Lidocaine Patch 4%) 1 each DAILY TP 04/21/25 09:00 05/21/25 08:59 05/03/25 10:25 1 EACH Magnesium Sulfate 50 ml @ 0 mls/hr PROTOCOL IV 04/21/25 08:30 05/21/25 08:29 04/24/25 06:11 25 MLS/HR Meropenem (Merrem 1gm) 1 gm Q8H IVPB 05/01/25 12:30 05/02/25 12:29 DC 05/02/25 04:15 1 GM Metoclopramide HCl (regLAN 10MG IV) 10 mg Q6H6 IVP 05/01/25 18:00 05/31/25 17:59 05/03/25 11:32 10 MG Metronidazole/ Sodium Chloride 100 ml @ 100 mls/hr Q8H6 IVPB 04/22/25 14:00 05/02/25 13:59 DC 05/02/25 09:55 100 MLS/HR Morphine Sulfate (morPHINE 4MG SYG) 4 mg Q4H PRN IVP SEVERE PAIN (7-10) 04/19/25 22:00 04/20/25 10:52 DC Nystatin (NystOP 15 GM POWDER) 1 APPLICATION BID TP 04/26/25 14:00 05/26/25 13:59 05/03/25 10:25 1 APPL Ondansetron HCl (zoFRAN 4MG INJ) 4 mg Q6H PRN IV NAUSEA/VOMITING 04/19/25 22:00 05/19/25 21:59 04/24/25 22:19 4 MG Pharmacy Profile Note (Pharmacy Communication) 1 each ONCE MISC 05/01/25 12:30 05/01/25 12:11 DC Potassium Chloride 100 ml @ 100 mls/hr PROTOCOL PRN IV hypokalemia 05/01/25 21:00 05/31/25 20:59 05/01/25 22:29 100 MLS/HR Promethazine HCl (Phenergan) 12.5 mg Q8H5 PRN IM NAUSEA/VOMITING 04/22/25 12:30 05/22/25 12:29 04/22/25 12:25 12.5 MG Sodium Chloride 500 ml @ 0 mls/hr Q0M STAT IV 04/22/25 13:17 04/22/25 13:22 DC 04/22/25 14:39 600 MLS/HR Vancomycin HCl 250 ml @ 125 mls/hr Q24H IV 05/01/25 05:00 05/11/25 04:59 05/03/25 05:41 125 MLS/HR Vancomycin HCl 250 ml @ 125 mls/hr Q8H IV 04/29/25 21:00 04/30/25 14:25 DC 04/30/25 05:52 125 MLS/HR Vancomycin HCl (Vancomycin Protocol) 1 each AD IV 04/22/25 15:00 04/23/25 22:23 DC Vancomycin HCl (Vancomycin Protocol) 1 each AD IV 04/29/25 11:00 05/13/25 10:59 LABORATORY: [ ] Hematology Labs: Test 05/10/25 04:16 Range/Units White Blood Count 17.6 #H 4.8-10.8 K/uL Red Blood Count 4.20 L 4.50-6.20 MIL/uL Hemoglobin 10.3 L 14.0-18.0 g/dL Hematocrit 33.2 L 42-54 % Mean Corpuscular Volume 79.0 79-99 fL Mean Corpuscular Hemoglobin 24.5 L 27.0-33.0 pg Mean Corpuscular Hemoglobin Concent 31.0 L 32.0-36.0 g/dL Red Cell Distribution Width 22.3 H 11.0-15.5 % Platelet Count 267 130-400 K/uL Mean Platelet Volume 10.6 H 7.5-10.5 fL Nucleated Red Blood Cells 0.0 0.0-0.19 % Chemistry Labs: Test 05/10/25 05:15 05/10/25 04:16 05/09/25 06:48 Range/Units Whole Blood Glucose 119 H 70-110 MG/DL Sodium Level 129 L 136-145 mmol/L Potassium Level 3.7 3.5-5.1 mmol/L Chloride Level 93 L 101-111 mmol/L Carbon Dioxide Level 30 21-32 mmol/L Blood Urea Nitrogen 30 H 7-18 mg/dL Creatinine 0.9 0.5-1.3 mg/dL Glomerular Filtration Rate Calc 114 >90 mL/min Random Glucose 125 H 70-105 mg/dL Total Calcium 8.5 8.5-10.1 mg/dL Magnesium Level 2.00 1.80-2.40 mg/dL Total Bilirubin 1.6 H 0.2-1.0 mg/dL Aspartate Amino Transf (AST/SGOT) 38 H 10-37 U/L Alanine Aminotransferase (ALT/SGPT) 43 # 12-78 U/L Alkaline Phosphatase 271 H 50-136 U/L Total Protein 6.8 6.0-8.3 g/dL Albumin 2.0 L 3.5-5.0 g/dL Procalcitonin 1.27 H 0.05-0.5 ng/mL Coagulation Labs: Test 05/10/25 04:16 Range/Units Prothrombin Time 11.4 9.6-11.6 SEC Prothromb Time International Ratio 1.08 0.85-1.15 Activated Partial Thromboplast Time 30.9 # 26.3-35.5 SEC DIAGNOSTICS / RADIOLOGY: [address] [address] IMAGING REPORT Signed PATIENT: MARTY BARRON MR#: [id number] : 1990 SEX: M AGE: 35 LOCATION: [facility] ORDER 1046 STATUS: ADM IN REPORT#: [id number] SERVICE 1045 REASON: RULE OUT BOWEL OBSTRUCTION OR ILIEUS ORDERING PHYSICIAN: TITA PETERSON MD PROCEDURE: SBFT - BOWEL SERIES SMALL BOWEL SERIES HISTORY: Status post colon resection with ostomy placement 2 months ago COMPARISON: None. TECHNIQUE: A small bowel series was performed with serial radiographs of the abdomen and pelvis obtained after oral administration of contrast. Patient was given 180 cc of Gastrografin. FINDINGS: DECORATION CHECKER: No evidence for free air. No unusual calcifications detected. Small bowels are dilated air-filled suggesting of possible ileus. There are surgical clips in the right upper quadrant. After oral administration of 90 cc of Gastrografin, normal opacification of the stomach noted without evidence for malrotation. The duodenum, jejunum, and ileum appear normal in caliber. The mucosal pattern appears grossly normal, without evidence for obstruction or discrete filling defect. Transit time through the small bowel was approximately 24 hours with Gastrografin has reached large bowel and sigmoid colon. (normal is 1-4 hrs). The terminal ileum was spotted, and no strictures or masses detected. IMPRESSION: There is resolving Gastrografin small bowel follow-through with 24-hour the Gastrografin has reached sigmoid colon and transverse colon. DICTATED BY: LEXIE NG MD DATE: 05/04/251651 ELECTRONICALLY SIGNED BY: LEXIE NG MD DATE: 05/04/251657 PATIENT: MARTY BARRON MR#: [id number] : 1990 SEX: M AGE: 35 LOCATION: [facility] ORDER 2300 STATUS: ADM IN REPORT#: [id number] SERVICE 0600 REASON: decreased ostomy output ORDERING PHYSICIAN: SAROJ MAGDALENO PROCEDURE: CXR1VW - CHEST 1VW EXAM: CR Chest, 1 View. CLINICAL HISTORY: decreased ostomy output COMPARISON: 05/01/2025 FINDINGS: LUNGS: Persistent right paratracheal opacity. Right inhomogeneous airspace opacities in the mid and lower zones, stable. Mild pulmonary vascular congestion. PLEURAL SPACES: No evidence of pleural effusion or pneumothorax. MEDIASTINUM: The cardiomediastinal silhouette is within normal limits. BONES: No acute osseous abnormality. IMPRESSION: 1. Stable right paratracheal opacity and right mid and lower zone airspace opacities. 2. Mild pulmonary vascular congestion. /[place] DICTATED BY: LYNDSEY ENRIQUE MD DATE: 05/03/251719 ELECTRONICALLY SIGNED BY: LYNDSEY ENRIQUE MD DATE: 05/03/251719 PATIENT: MARTY BARRON MR#: [id number] : 1990 SEX: M AGE: 35 LOCATION: [facility] ORDER 1434 STATUS: ADM IN REPORT#: [id number] SERVICE 1433 REASON: RULE OUT OBSTRUCTION VS ILIEUS ORDERING PHYSICIAN: TITA PETERSON MD PROCEDURE: ABD 1VW - ABD 1VW EXAM: CR Abdomen, 4 View. CLINICAL HISTORY: RULE OUT OBSTRUCTION VS ILIEUS COMPARISON: Radiograph dated April 30, 2025 FINDINGS: Redemonstrated air-filled dilated loops of small bowel measuring up to 5.[address] imaging to exclude small bowel ileus versus a partial distal small bowel obstruction. IMPRESSION: 1. Dilated small bowel loops up to 5.0 cm, concerning for ileus or partial small bowel obstruction. CT imaging recommended for further evaluation. /[place] DICTATED BY: ANTONIO STEINBERG Jr., MD DATE: 05/01/251946 ELECTRONICALLY SIGNED BY: ANTONIO STEINBERG Jr., MD DATE: 05/01/251946 PATIENT: MARTY BARRON MR#: [id number] : 1990 SEX: M AGE: 35 LOCATION: [facility] ORDER 2300 STATUS: ADM IN REPORT#: [id number] SERVICE 0600 REASON: decreased ostomy output ORDERING PHYSICIAN: SAROJ MAGDALENO PROCEDURE: CXR1VW - CHEST 1VW EXAM: CR Chest, 1 View. CLINICAL HISTORY: Decreased ostomy output. COMPARISON: CR ??? Chest 1 View dated 04/30/25, 08:56 EST. FINDINGS: LUNGS: Persistent right paratracheal opacity with inhomogeneous airspace infiltrates in the right lung. Inhomogeneous airspace infiltrates in the left upper lung appear decreased, suggesting interval resolution. No new pulmonary consolidation or mass. PLEURAL SPACES: No pleural effusion or pneumothorax. MEDIASTINUM: Cardiomediastinal silhouette within normal limits. BONES: No acute or aggressive osseous lesion. IMPRESSION: * Persistent right paratracheal opacity with inhomogeneous right lung infiltrates. * Interval resolving left upper lung infiltrates. * No pleural effusion or pneumothorax. Comparison: Compared with prior radiograph dated 04/30/25, right-sided opacities persist while left upper lung infiltrates show partial resolution. /[place] DICTATED BY: JOSAFAT DALY MD DATE: 05/01/252324 ELECTRONICALLY SIGNED BY: JOSAFAT DALY MD DATE: 05/01/252324 PATIENT: MARTY BARRON MR#: [id number] : 1990 SEX: M AGE: 35 LOCATION: [facility] ORDER 99 [facility] REPORT#: [id number] SERVICE 06 REASON: decreased ostomy output ORDERING PHYSICIAN: SAROJ MAGDALENO PROCEDURE: CXR1VW - CHEST 1VW EXAM: CHEST RADIOGRAPH, 1 VIEW Technique: Single frontal expiratory view of the chest. Clinical Information: Decreased ostomy output. Findings: Lungs and large airways: Mild patchy opacities are present in both upper lobes; a right paratracheal suprahilar opacity is again seen; no lobar collapse is identified. Pleura: No pleural effusion or pneumothorax is identified. Heart and mediastinum: Cardiomediastinal silhouette is within normal limits. Bones/joints: No acute osseous abnormality is identified. Impression: * Comparison: Compared with chest radiograph dated 04/28/2025 07:29 EDT, bilateral basilar consolidation with associated mild atelectasis has resolved; mild patchy opacities in both upper lobes and the right paratracheal suprahilar opacity are unchanged; no pleural effusion or pneumothorax is identified. * Mild bilateral upper-lobe opacities, stable???correlate clinically for resolving infection or inflammatory change. * Expiratory acquisition limits assessment of lung volumes and may accentuate vascular crowding. /[place] DICTATED BY: JOSAFAT DALY MD DATE: 05/01/25207 ELECTRONICALLY SIGNED BY: JOSAFAT DALY MD DATE: 05/01/25207 PATIENT: MARTY BARRON MR#: [id number] : 1990 SEX: M AGE: 35 LOCATION: 2[facility] ORDER 230 STATUS: ADM IN REPORT#: [id number] SERVICE 0600 REASON: decreased ostomy output ORDERING PHYSICIAN: SAROJ MAGDALENO PROCEDURE: ABD 1VW - ABD 1VW ADDENDUM REPORT ADDENDUM: Results were shared by telephone at 06:34 am on 05-01-25 and acknowledged by Patients Nurse Mr.Jose Hanks /[place] EXAM: CR Abdomen, multiple views. CLINICAL HISTORY: Decreased ostomy output. COMPARISON: None provided. FINDINGS: Multiple dilated small bowel loops with multiple air-fluid levels. Large bowel loops are not dilated. Features of small bowel obstruction. Excreted contrast is identified within the urinary bladder. No free air is evident. No abnormal calcification. No aggressive appearing osseous lesion. IMPRESSION: Multiple dilated small bowel loops with multiple air-fluid levels. Large bowel loops are not dilated. The features concerning bowel obstruction or ileus. Recommend a barium follow-through study for further evaluation. /[place] DICTATED BY: ANTONIO STEINBERG Jr., MD DATE: 05/01/2537 ELECTRONICALLY SIGNED BY: DATE: EXAM: CR Abdomen, multiple views. CLINICAL HISTORY: Decreased ostomy output. COMPARISON: None provided. FINDINGS: Multiple dilated small bowel loops with multiple air-fluid levels. Large bowel loops are not dilated. Features of small bowel obstruction. Excreted contrast is identified within the urinary bladder. No free air is evident. No abnormal calcification. No aggressive appearing osseous lesion. IMPRESSION: Multiple dilated small bowel loops with multiple air-fluid levels. Large bowel loops are not dilated. The features concerning bowel obstruction or ileus. Recommend a barium follow-through study for further evaluation. /[place] DICTATED BY: ANTONIO STEINBERG Jr., MD DATE: 05/01/25622 ELECTRONICALLY SIGNED BY: ANTONIO STEINBERG Jr., MD DATE: 05/01/25622 PATIENT: MARTY BARRON MR#: [id number] : 1990 SEX: M AGE: 35 LOCATION: 2[facility] ORDER 9 [facility] REPORT#: [id number] SERVICE 0307 REASON: Right arm PICC, concern for DVT, swelling, pain, and redness noted ORDERING PHYSICIAN: COOPER STUART BRAILLE OPERATOR PROCEDURE: VENOUS UNI - US VENOUS DOPPLER UNILATERAL ADDENDUM REPORT ADDENDUM: Results were shared by telephone at 14:06 pm on 04-27-25 and acknowledged by Pt Nurse, Ms Georgiana Solomon /[place] EXAM: ULTRASOUND VENOUS DOPPLER, RIGHT UPPER EXTREMITY Technique: Duplex ultrasound with grayscale imaging, compression maneuvers, color Doppler, and spectral Doppler sampling of the right upper extremity veins. Clinical Information: Right arm peripherally inserted central catheter; swelling, pain, and redness; concern for deep venous thrombosis. Findings: Right axillary vein: Noncompressible with intraluminal echogenic thrombus and absent color Doppler filling, consistent with thrombosis. Right brachial veins: Thrombus present consistent with deep venous thrombosis. Right cephalic vein: Partial (non-occlusive) thrombosis. PICC: Indwelling right upper extremity peripherally inserted central catheter present; catheter-associated thrombosis suspected based on thrombus distribution. Tip location not assessed on this examination. Additional comments: No other specific venous segment findings were provided for review. Impression: * Right upper extremity catheter-associated deep venous thrombosis involving the axillary vein and brachial veins. * Non-occlusive thrombosis of the right cephalic vein (superficial venous thrombosis). * Correlate clinically for pulmonary embolism risk; management typically includes anticoagulation per institutional protocol and assessment of need for PICC removal or exchange depending on clinical requirements. /[place] DICTATED BY: ANTONIO STEINBERG Jr., MD DATE: 04/27/25 1410 ELECTRONICALLY SIGNED BY: DATE: EXAM: ULTRASOUND VENOUS DOPPLER, RIGHT UPPER EXTREMITY Technique: Duplex ultrasound with grayscale imaging, compression maneuvers, color Doppler, and spectral Doppler sampling of the right upper extremity veins. Clinical Information: Right arm peripherally inserted central catheter; swelling, pain, and redness; concern for deep venous thrombosis. Findings: Right axillary vein: Noncompressible with intraluminal echogenic thrombus and absent color Doppler filling, consistent with thrombosis. Right brachial veins: Thrombus present consistent with deep venous thrombosis. Right cephalic vein: Partial (non-occlusive) thrombosis. PICC: Indwelling right upper extremity peripherally inserted central catheter present; catheter-associated thrombosis suspected based on thrombus distribution. Tip location not assessed on this examination. Additional comments: No other specific venous segment findings were provided for review. Impression: * Right upper extremity catheter-associated deep venous thrombosis involving the axillary vein and brachial veins. * Non-occlusive thrombosis of the right cephalic vein (superficial venous thrombosis). * Correlate clinically for pulmonary embolism risk; management typically includes anticoagulation per institutional protocol and assessment of need for PICC removal or exchange depending on clinical requirements. /[place] DICTATED BY: ANTONIO STEINBERG Jr., MD DATE: 04/27/25 135 ELECTRONICALLY SIGNED BY: ANTONIO STEINBERG Jr., MD DATE: 04/27/25 135 PATIENT: MARTY BARRON MR#: [id number] : 1990 SEX: M AGE: 35 LOCATION: [facility] ORDER 1441 STATUS: ADM IN REPORT#: [id number] SERVICE 0000 REASON: rule out endocarditis ORDERING PHYSICIAN: SAROJ MAGDALENO PROCEDURE: ECHO CMP - ECHO 2-D COMPLETE APPROVED REPORT EXAM: Two-dimensional and M-mode echocardiogram with Doppler and color Doppler. INDICATION ICD: Rule out endocarditis, rule out clot or pulmonary embolism 2D Dimensions RVDd 3.6 cm LVEF(%) 56.6 (>50%) LVED Vol(simp.) 103.0 mL IVSd 0.9 (0.7-1.1cm) FS(%) 30 % LVES Vol(simp.) 45.0 mL LVDd 4.8 (3.8-5.6cm) LA (2D) 3.3 (1.6-4.0cm) LVEF(%, simp.) 56 % PWd 1.1 (0.7-1.1cm) Ao Root(2D) 3.4 (2.0-3.7cm) LA ESV INDEX (BP) 17.03 mL/m2 IVSs 1.0 cm LVOT diam 2.6 (1.8-2.4cm) LVDs 3.4 (2.5-4.0cm) IVC diam 1.1 cm PWs 1.0 cm Deformation Strain Apical 4 -14.1 % Apical 2 -15.4 % Apical 3 -13.0 % Global Strain -14.2 % M-Mode Dimensions EPSS 0.6 cm LA (MM) 3.8 (1.6-4.0cm) Ao Root(MM) 3.8 (2.0-3.7cm) Aortic Valve AoV Vmax 1.5 m/s Ao Peak GR 9.3 mmHg LVOT Vmax 1.3 m/s AoV VTI 0.2 m Ao Mean GR 5.5 mmHg LVOT VTI 0.18 m AARON (VMAX) 4.54 cm2 AARON (VTI) 4.4 cm2 Mitral Valve MV E Vmax 70.7 cm/s DECEL Time 158 ms MV A Vmax 67.4 cm/s P 1/2 T 46 ms E/A ratio 1.0 MVA (PHT) 4.7 cm2 TDI E/E' Medial 6.3 E/E' Lateral 6.1 Medial E' Peak V 11.25 cm/s Lateral E' Peak V 11.56 cm/s Pulmonary Valve PV Vmax 1.6 m/s PV VTI 0.19 m PV Mean GR 5.0 mmHg PV Peak GR 10.4 mmHg Tricuspid Valve TR Vmax 3.6 m/s RAP (EST) 3 mmHg RVSP 64.1 mmHg TR Peak GR 61.1 mmHg Left Ventricle The left ventricle is normal size. GLS -14.0% There is normal left ventricular wall thickness. LVEF is 50-55%. No left ventricle thrombus noted on this study. The left ventricular diastolic function is normal. Right Ventricle The right ventricle is normal size. The right ventricular systolic function is normal. Atria The left atrium size is normal. There is no mass or thrombus suspected in the left atrium. The right atrium size is normal. There is no mass or thrombus suspected in the right atrium. Aortic Valve The aortic valve is trileafelt normal in structure. No aortic regurgitation is present. No aortic valvular vegetation noted. There is no aortic valvular stenosis. Mitral Valve The mitral valve is normal in structure. There is no mitral valve regurgitation noted. There are no mitral valve vegetation noted. There is no mitral valve stenosis. Tricuspid Valve The tricuspid valve is normal in structure. There is mild tricuspid valve regurgitation noted by color Doppler. RVSP 61mmHg. There is no tricuspid valve vegetation. Pulmonic Valve The pulmonary valve is not well visualized. There is no pulmonic valvular regurgitation. Great Vessels The aortic root is normal in size. The IVC is normal in size and collapses >50% with inspiration. Pericardium There is no pericardial effusion. Other Information Quality : Technically difficult study due to body habitus Rhythm : NSR Conclusion LVEF is 50-55%. No left ventricle thrombus noted on this study. No intracardiac masses No valvular vegetations DICTATED BY: ZELDA MARTINEZ DO DATE: 04/23/25 0923 ELECTRONICALLY SIGNED BY: ZELDA MARTINEZ DO DATE: 04/23/25 1459 PATIENT: MARTY BARRON MR#: [id number] : 1990 SEX: M AGE: 35 LOCATION: 2DH ORDER 2302 STATUS: ADM IN REPORT#: [id number] SERVICE 0600 REASON: multiple lung nodules suggestive of mets. recntly diagnosed adenoca colon. ORDERING PHYSICIAN: KRISTIAN MORTON MD PROCEDURE: BXLUNG - CT BX LUNG/MEDIASTINUM NDL IR PERCUTANEOUS CT-GUIDED BIOPSY OF left anterior rib mass: CLINICAL HISTORY: This is a 35 [id number] Male with multiple lesion seen in the lungs there is an expansile mass seen in the left anterior rib for CT-guided biopsy of left anterior rib mass. The risk and benefit was explained to the patient. The risks include infection and possible bleed. The patient consented to the procedure. PROCEDURE: Patient was placed in supine position. Patient was given IV conscious sedation with 2 mg of Versed and 50 MCG of fentanyl.. Under CT guidance left anterior rib lesion was localized. After sterile prep and drapa, using 1% xylocaine for local anesthetic, using a 18-gauge Bard gun, a total of 3 core biopsies were obtained. The specimen was sent for histology and cell block. The patient tolerated the procedure and post-biopsy demonstrated no bleed. There is no evidence of any pneumothorax. IMPRESSION: PERCUTANEOUS CT-GUIDED BIOPSY OF left anterior rib WITH SPECIMENS SENT FOR Histology and cell block.. THE PATIENT TOLERATED PROCEDURE WELL. PATHOLOGY REPORT IS PENDING. If this path report does not demonstrate malignancy I would recommend lung biopsy DICTATED BY: LEXIE NG MD DATE: 04/26/25 1111 ELECTRONICALLY SIGNED BY: LEXIE NG MD DATE: 04/26/25 1116 PATIENT: MARTY BARRON MR#: [id number] : 1990 SEX: M AGE: 35 LOCATION: 2AH ORDER [id number] STATUS: ADM IN REPORT#: [id number] SERVICE [id number] REASON: RLQ PAIN ORDERING PHYSICIAN: TITA PETERSON MD PROCEDURE: ABD PEL WO - CT ABDOMEN/PELVIS W/O CONTRAST ADDENDUM REPORT ADDENDUM: Results were shared by telephone at 1:37 pm on 04-22-[address] David Mary /[place] EXAM: CT Abdomen and Pelvis Without IV contrast CLINICAL HISTORY: RLQ PAIN TECHNIQUE: Axial computed tomography images of the abdomen and pelvis without intravenous contrast. CONTRAST: No IV contrast. COMPARISON: None provided. FINDINGS: LUNG BASES: Multiple randomly distributed nodules in both lungs, the largest measuring 2.1 x 1.6 cm in the medial basal segment of the right lower lobe. Patchy areas of consolidation in bilateral lower lobes. Ill-defined lytic-sclerotic lesion in the left anterior aspect of the 6th rib. Dependent airway disease along bilateral lower lobes, presumed to represent basal atelectasis. LIVER: Hepatic steatosis. GALLBLADDER AND BILE DUCTS: Post cholecystectomy status. No biliary ductal dilatation is evident. PANCREAS: Unremarkable. SPLEEN: Unremarkable. ADRENAL GLANDS: Bilateral adrenal glands appear diffusely bulky, predominantly on the left side, likely adrenal gland hyperplasia. KIDNEYS, URETERS, AND BLADDER: The kidneys appear within normal limits. There is no hydronephrosis or hydroureter. No urinary calculi are seen. STOMACH AND BOWEL: There is a defect of size 5.6 cm in the left anterior abdominal wall with herniation of the descending colon and small bowel loop. There is dilatation of the herniated bowel loop up to 4.1 cm, consistent with obstruction. Thickened and irregular appearing loop of small bowel in the mid pelvis. Ischemia is not excluded. A contrast-enhanced CT is recommended. PERITONEUM: Trace-free fluid. No free air. LYMPH NODES: No lymphadenopathy is evident. REPRODUCTIVE: Unremarkable as visualized. VASCULATURE: No evidence of abdominal aortic aneurysm. BONES: Lytic lesion in the L4 vertebral body. IMPRESSION: 1. Thickened and irregular appearing loop of small bowel in the mid pelvis. Ischemia is not excluded. A contrast-enhanced CT is recommended. 2. Left anterior abdominal wall hernia with herniation of descending colon and small bowel, with bowel obstruction up to 4.1 cm. 3. Lytic lesion in L4 vertebral body. Left anterior 6th rib lytic-sclerotic lesion. 4. Multiple pulmonary nodules, the largest 2.1 cm in the right lower lobe -suspicious for metastasis. 5. Bilateral adrenal gland hyperplasia, more prominent on the left. Suggest PET-CT for further evaluation. /[place] DICTATED BY: LYNDSEY ENRIQUE MD DATE: 04/22/25 133 ELECTRONICALLY SIGNED BY: DATE: EXAM: CT Abdomen and Pelvis Without IV contrast CLINICAL HISTORY: RLQ PAIN TECHNIQUE: Axial computed tomography images of the abdomen and pelvis without intravenous contrast. CONTRAST: No IV contrast. COMPARISON: None provided. FINDINGS: LUNG BASES: Multiple randomly distributed nodules in both lungs, the largest measuring 2.1 x 1.6 cm in the medial basal segment of the right lower lobe. Patchy areas of consolidation in bilateral lower lobes. Ill-defined lytic-sclerotic lesion in the left anterior aspect of the 6th rib. Dependent airway disease along bilateral lower lobes, presumed to represent basal atelectasis. LIVER: Hepatic steatosis. GALLBLADDER AND BILE DUCTS: Post cholecystectomy status. No biliary ductal dilatation is evident. PANCREAS: Unremarkable. SPLEEN: Unremarkable. ADRENAL GLANDS: Bilateral adrenal glands appear diffusely bulky, predominantly on the left side, likely adrenal gland hyperplasia. KIDNEYS, URETERS, AND BLADDER: The kidneys appear within normal limits. There is no hydronephrosis or hydroureter. No urinary calculi are seen. STOMACH AND BOWEL: There is a defect of size 5.6 cm in the left anterior abdominal wall with herniation of the descending colon and small bowel loop. There is dilatation of the herniated bowel loop up to 4.1 cm, consistent with obstruction. Thickened and irregular appearing loop of small bowel in the mid pelvis. Ischemia is not excluded. A contrast-enhanced CT is recommended. PERITONEUM: Trace-free fluid. No free air. LYMPH NODES: No lymphadenopathy is evident. REPRODUCTIVE: Unremarkable as visualized. VASCULATURE: No evidence of abdominal aortic aneurysm. BONES: Lytic lesion in the L4 vertebral body. IMPRESSION: 1. Thickened and irregular appearing loop of small bowel in the mid pelvis. Ischemia is not excluded. A contrast-enhanced CT is recommended. 2. Left anterior abdominal wall hernia with herniation of descending colon and small bowel, with bowel obstruction up to 4.1 cm. 3. Lytic lesion in L4 vertebral body. Left anterior 6th rib lytic-sclerotic lesion. 4. Multiple pulmonary nodules, the largest 2.1 cm in the right lower lobe -suspicious for metastasis. 5. Bilateral adrenal gland hyperplasia, more prominent on the left. Suggest PET-CT for further evaluation. /[place] DICTATED BY: LYNDSEY ENRIQUE MD DATE: 04/22/251332 ELECTRONICALLY SIGNED BY: LYNDSEY ENRIQUE MD DATE: 04/22/251332 ASSESSMENT: Acute on chronic renal failure Hyponatremia Severe sepsis with MODS, resolved Leukocytosis Gram-positive cocci bacteremia Status post left rib biopsy by IR on 04/26/2025 New right upper lobe spiculated infiltrative mass measuring 5.4 x 4.6 cm infiltrating mediastinal pleura and albumin in the right main pulmonary artery Bulky mediastinal lymphadenopathy with the largest node measuring 4 cm involving the right paratracheal, prevascular, and subcarinal stations Multiple bilateral spiculated pulmonary nodules consistent with metastatic disease progression Bilateral marked diffuse adrenal enlargement likely metastatic or hyperplastic Left iliac fossa 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 Right upper extremity DVT involving the axillary and brachial veins Small-bowel obstruction Stage IV colorectal cancer with metastatic disease to the lung, pathology consistent with moderately differentiated adenocarcinoma, POA PLAN: Labs, diagnostic, radiologic exams reviewed and interpreted by myself and supervising physician. We have reviewed external records in detail Case management coordinating SNF placement Continue with close monitor renal function electrolytes, if renal function worsens recommend discontinue vancomycin, use alternative antibiotic if possible. BiPAP as necessary, for respiratory distress Monitor blood pressure adjust medication doses as needed Avoid hypotensive episodes May use Dilaudid 0.5 mg IV every 6 hours as needed for severe pain Strict intake, output, TSH, uric acid and daily weight should be monitored Please renally adjust medications Avoid nephrotoxic and nonsteroidal drugs Avoid contrast if possible Will continue to monitor renal function, anemia, electrolytes Treatment plan discussed with patient Questions were answered We have discussed with the other team physicians in detail about the care plan We will continue to monitor the patient closely ATTESTATION BY PHYSICIAN I have seen and examined the patient. I reviewed the documentation, medical decision making, and treatment plan as noted by the mid-level provider above. I agree with the findings and plan of care. ANAYA CHENEY MD, [facility] May 10, 2025 10:47
--- NOTE | 2025-05-10 12:43 | PN ---
[facility] PROGRESS NOTE Date of Service: May 10, 2025 Time of Service: 12:42 SUBJECTIVE: 04/20 the patient has been seen and examined at bedside, case discussed with the RN, no acute events overnight, the time of my visit, the patient is awake, following commands, blood pressure 140/90, afebrile, saturating normal on room air. The patient is morbidly obese, he uses a CPAP at home, currently CPAP at bedside during my visit. WBC 14.0, hemoglobin 10.4, hematocrit 34.8, platelet count of 305. CMP shows sodium 141, potassium 3.5, BUN 70, creatinine 0.9, iron level of 25. X-ray of the knee showing moderate to severe three, power mental right knee osteoarthritis, predominantly in the lateral compartment, with small joint effusion. No acute fracture. Orthopedic physician consultation requested, we will follow input and recommendation. MRI of the right knee requested, however due to morbid obesity, might not be able to do it. Discussed with the mother is at the bedside, all questions answered, in agreement. 04/21 patient has been seen and examined at bedside, case discussed with the RN, no acute events overnight, the time my visit he is awake, following commands, admits mild dry nonproductive cough, spiked fever 102.6. Denied chest pain, shortness shortness for breath, no nausea, no vomiting, no abdominal discomfort. The patient has a colostomy bag, on examination, liquid stool noted. WBC slowly trending down at 12.7, hemoglobin stable 11.6. Magnesium 1.7. Added doxycycline 100 mg IV q.12 hours. Follow serology to include SARS antigen, influenza and rapid strep. We will give magnesium sulfate 2 g IV x1. We will order GI stool panel. Patient is scheduled for MRI to the right knee today, continue lidocaine patch, discussed with the orthopedic physician today, we will follow input and recommendation. 04/22 patient is seen and examined at bedside, discussed with the RN. Patient currently feels nauseated. He admits mild discomfort to the right lower quadrant. BP 135/77, mildly tachycardic at 108, saturating normal on room air. Maximum temperature last 24 hours 102.7. CBC shows a hemoglobin of 11.6, hematocrit 35.7, platelet count of 276, with a platelet count of 23.8. Creatinine 2.1. MRI of the right knee shows tricompartmental osteoarthritis with osteophytosis and diffuse cartilage loss, medial and lateral meniscal with complex degenerative tear involving posterior horns and bodies, meniscal tear severity grade 3, full-thickness chondral defect of the lateral femoral condyle, with a underlying subchondral edema, small reactive joint effusion with mild synovitis. We will upgraded the patient to the PCU, LR at 50 mL/hours, follow repeat CBC, CMP and magnesium level. Continue Rocephin and doxycycline IV. We will order a CT of the abdomen and pelvis without contrast to rule out intra- abdominal acute pathology. Orthopedic input noted and appreciated, patient with bad arthritis, we will finally benefit from knee replacement, however considering his morbid obesity, it is not indicated right now. Recommended co nservative approach. Mother at bedside, all questions answered, updated, in agreement with plan of care. 04/23 patient is seen and examined at bedside, discussed with the RN, no acute events overnight, patient upgraded to the ICU yesterday due to sepsis and developing small bowel obstruction. Today the patient is awake, following commands, he is NPO, NG tube to intermittent suction, BP 120/76, heart rate of 111, saturating 96% 3 L nasal cannula, temperature 98.4. WBC of 27.6, hemoglobin 10.6, hematocrit 35.5, platelet count 240, creatinine improved to 1.2. Septic workup with blood culture positive for Staphylococcus epidermidis. Echocardiogram and chest x-ray pending. Patient will remain admitted to the ICU, continue broad-spectrum IV antibiotics, we will follow surgical input recommendation. Continue to follow critical Care and ID input and recommendation. And we will update the mother regarding results of CT of the abdomen pelvis and further plan of care when she is present in the room. CT abdomen and pelvis reviewed, as follows: * Patient is undergoing mass evaluation. * Interval progression since 22 April 2025 with a new right upper lobe spiculated infiltrative mass measuring 5.4 ??? 4.6 cm infiltrating mediastinal pleura and abutting the right main pulmonary artery. * Bulky mediastinal lymphadenopathy with largest node measuring 4 cm, involving right paratracheal, prevascular, precarinal, and subcarinal stations, increased since prior study. * Multiple bilateral spiculated pulmonary nodules (1???2.5 cm), consistent with metastatic disease progression. * Bilateral marked diffuse adrenal enlargement (Right 5.9 ??? 3.6 cm, Left 7.6 ??? 5.4 cm), likely metastatic or hyperplastic. 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 * Degenerative thoracolumbar spondylosis with L4 vertebral body wedging (30???40% height loss), unchanged. * Comparison is made with the exam dated 22 April 2025. Overall findings indicate worsening metastatic disease with new primary and gloria lesions and mechanical bowel obstruction requiring clinical and surgical correlation. Recommendations include oncologic evaluation and PET-CT staging, alongside urgent surgical consultation for bowel obstruction. 04/24 patient is seen and examined at bedside, discussed with the RN, no acute events overnight, patient downgraded from the ICU to the PCU, he remains NPO, NG tube connected to intermittent suction, output in the last 12 hours 200 mL. BP 146/150, heart rate of 101, afebrile, saturating 96-97% on nasal cannula. CBC shows a hemoglobin of 9.9, hematocrit 33.5, platelet count of 235, with WBC of 21.3. CMP with sodium 146, potassium 3.8, BUN of 18, creatinine 0.9, magnesium 1.8. Blood culture 04/21/2025 positive for Staphylococcus epidermidis. Repeat blood cultures 04/23/2025 no growth after 24 hours echocardiogram 04/23/2025 LVEF 50-55%, no left ventricle thrombus, no intracardiac masses, no valvular vegetations. Today chest x-ray pending. Patient will remain admitted to the PCU, NPO, intermittent suction, continue to follow surgical input recommendation, continue broad-spectrum IV antibiotics, follow WBC in a.m.. Follow KUB. I HAVE CONTACTED THE DEPARTMENT OF MEDICAL RECORDS [facility], SPOKE WITH ZENA AT PHONE NUMBER [phone], I HAVE REQUESTED MEDICAL RECORDS. WE WILL FOLLOW UP. 04/25 patient is seen and examined at bedside, case discussed with the RN, no acute events overnight, he remains comfortably in bed, NPO, NG tube to intermittent suction, he is awake, following commands, BP 128/90, area of 101, afebrile. Still feels distended. On examination colostomy bag, enema output noted. KUB pending. KUB from 04/24/2025 showing markedly dilated small bowel loops up to 5.6 cm, consistent with distal small-bowel obstruction, no pneumoperitoneum, pneumatosis intestinalis or portal venous gas. I received medical records from [facility], patient was admitted on 11/19/2024 and discharged 12/08/2024. Areolar in the hospital patient underwent exploratory laparoscopy, laparotomy and creation of transverse loop colostomy 11/28/2024. Patient was evaluated by oncologist Braulio Bell. 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 Per my discussion with the mother, from [facility] the patient was discharged to [facility] to recover and from there he went home. Patient has not had a follow up appointment with the general surgeon or oncologist after that. We have requested Oncology consultation here during this admission. Pathology report from rectal biopsy shows moderately differentiated adenocarcinoma, then new pulmonary nodules and mediastinal lymphadenopathy as per CT scan indicates the possibility of metastatic disease. CEA is [id number]. Re quested pulmonary nodule biopsy by IR. Patient will remain admitted to the PCU, we will continue NG tube to intermittent suction, NPO, TPN, follow surgical input and recommendation. Follow repeat KUB. Mother at bedside, updated, all questions answered. Plan of care discussed with the patient as well, in agreement. 04/26 patient is seen and examined at bedside, discussed with the RN, no acute events overnight, patient is status post CT-guided biopsy of left anterior rib mass, 04/26/2025, tolerated the procedure well. At the time of my visit, he is awake, following commands, denied chest pain, shortness shortness for breath, no nausea, no vomiting. Colostomy bag full of air. No stool or liquid noted. Plan is for the patient to start clear liquid diet and advanced as tolerated. We will follow results of pathology. Continue to follow a.m. labs. Mother at bedside, updated. 04/27 patient is seen and, discussed with the RN, no acute events overnight, alert oriented x3, tolerating clear liquid diet. Passing gas in the colostomy bag but no bowel movement yet. Patient was swollen to the right upper extremity. Doppler showing deep venous thrombosis involving the right axillary vein and brachial veins, nonocclusive thrombosis of the right cephalic vein (superficial venous thrombosis). Correlate clinically for pulmonary embolism risk. Hemoglobin of 10.4, hematocrit 35.9, platelet count of 18.7. Findings of Doppler discussed with the mother, we will start the patient on heparin drip, risks versus benefits discussed, agreed to proceed with the anticoagulation. We will insert midline in the left upper extremity. We will continue to clinically monitor the patient.status post CT-guided biopsy of left anterior rib mass, 04/26/2025, follow up pathology. Continue to follow oncology input and recommendation. 04/28 patient is seen and, discussed with the RN, no acute events overnight, alert oriented x3, remains admitted to the PCU, alert oriented x3 at the time of my visit, tolerating soft diet, passing gas but no BM yet. Doppler showing deep venous thrombosis involving the right axillary vein and brachial veins, nonocclusive thrombosis of the right cephalic vein (superficial venous th rombosis). Continue heparin drip. Oncology input noted and appreciated. Patient will need Port-A-Cath insertion before discharge home. status post CT- guided biopsy of left anterior rib mass, 04/26/2025, follow up pathology. Continue broad-spectrum IV antibiotics, trend WBC in a.m. per mother at bedside, updated. 04/29/25 The patient continue with Heparin drip given to DVT right axillary vein and brachial vein: will transition to po close to discharged. This patient will need Port-A-Cath insertion before discharge home. This patient need to be clear for Port-A-Cath insertion by infectious disease 04/30/25 patient is lying in bed primary nurse reports no events overnight. Patient we will have IR place Port-A-Cath tomorrow. Patient continues with broad-spectrum antibiotics continues heparin drip transitioned to p.o. post procedure. 05/01 patient is seen and, discussed with the RN, no acute events overnight, alert oriented x3, remains admitted to the PCU, alert oriented x3 at the time of my visit, tolerating soft diet, passing gas but no BM yet. Doppler showing deep venous thrombosis involving the right axillary vein and brachial veins, nonocclusive thrombosis of the right cephalic vein (superficial venous thrombosis). Continue heparin drip. Oncology input noted and appreciated. Patient will need Port-A-Cath insertion before discharge home. IR consultation requested. status post CT-guided biopsy of left anterior rib mass, 04/26/2025, follow up pathology. Continue broad-spectrum IV antibiotics, trend WBC in a.m. per mother at bedside, updated. On physical examination, only small liquid output from colostomy bag, no solid stool noted. Discussed with surgery, recommended small-bowel series. Continue to trend WBC in a.m.. Patient may require transfer to higher level of care, we will discuss with case management. 05/02 patient is seen and, discussed with the RN, no acute events overnight, alert oriented x3, remains admitted to the PCU, alert oriented x3 at the time of my visit, tolerating soft diet, passing gas. Colostomy bag on exam looks more full compared to yesterday however not solid stool yet. Discussed with the surgery yesterday, recommended small-bowel series, likely to be completed today, we will follow up. 05/03 patient is seen and examined at bedside, discussed with the RN, no acute events overnight, patient remains comfortably in bed, alert oriented x3, feels hungry, passing gas, liquid stool noted in colostomy bag, still pending to complete small-bowel series. Patient remains on heparin drip, swollen to the right upper extremity almost resolved. Denies pain to the right upper arm. Continue to follow a.m. labs. Oncology input noted and appreciated, biopsy consistent with adenocarcinoma. Patient has stage IV colorectal cancer with metastatic disease to the lung. Peripheral bloood smear shows microcytic hypochromic anemia consistent with iron deficiency anemia . There is teardrop cell, pelger huet cell and rouleaux formation .Increased number of WBCs observed with neutrophilia and hypersegmented neutrophils suggestive of underlying infection . Band cells observed. Platelet morphology and count within normal limits .Discussed with the mother at bedside, all questions answered. In agreement. 05/04 patient is seen and examined at bedside, discussed with the RN, no acute events overnight, patient remains comfortably in bed, alert oriented x3, small- bowel series done 05/02/2025, still pending report. Continue the patient on TPN . Mother at bedside, updated. Follow a.m. labs. 05/05 patient is seen and examined at bedside, discussed with the RN, no acute events overnight, during my visit comfortably in bed, alert oriented x3, on TPN, results of small-bowel series no evidence of obstruction, patient is started on clear liquid diet. We will advance to soft diet today. Mother and father at bedside during my visit, updated. Per the mother, she stated that the patient is still have pain on both knees on is trying to work with the physical therapist. We will start the patient on Toradol 15. mg IV every 6 hours as needed monitor renal function in a.m.. Continue to follow CBC in a.m. transfuse as needed. Hematology and ID input noted and appreciated. 05/06 patient is seen and examined at bedside, discussed with the RN, no acute events overnight, during my visit comfortably in bed, alert oriented x3, patient was started on full liquid diet yesterday, however had episode of vomiting. He is still on TPN. Today blood pressure 153/99, afebrile, saturating 97% 2 L nasal cannula. Hemoglobin 10.7, hematocrit 34.2, WBC 17.1. Sodium level 129, with a 4.6, BUN 32, creatinine 0.7, magnesium 2.3. We will keep the patient on clear liquid diet. We will discuss case with the General surgery. Hold TPN as the patient with a hyponatremia, also on Lasix 20 mg IV b.i.d.. Continue Reglan and dexamethasone IV. Encourage out of bed to chair. Follow a.m. labs. Mother at bedside, updated, all questions answered. 05/07 patient is seen and examined at bedside, discussed with the RN, no acute events overnight, during my visit comfortably in bed, alert oriented x3, patient is started on GI soft diet yesterday, tolerated well, no nausea, no vomiting, no abdominal discomfort. Sodium level 128, we will discontinue TPN. Continue to follow level in a.m.. Continue to encourage out of bed to chair. Physical therapy to evaluate the patient. Continue to follow oncology input recommendation terms of Port-A-Cath placement prior to discharge. Currently patient remains on heparin drip. Mother and father at bedside, updated, all questions answered. 05/08 patient is seen and examined at bedside, discussed with the RN, no acute events overnight, comfortably in bed, following commands, tolerating diet, no nausea, no vomiting, no abdominal discomfort. Patient is scheduled for Port-A-Cath placement today by IR. Continue broad-spectrum antibiotics, follow a.m. labs. 05/09 patient is seen and examined at bedside, discussed with the RN, no acute events overnight, comfortably in bed, following commands, tolerating diet, no nausea, no vomiting, no abdominal discomfort. Patient is status post Po rt-A-Cath placement today by IR 05/08/25, tolerated the procedure well. Continue broad-spectrum antibiotics, follow a.m. labs. We will discuss discharge plan with case management today. Mother at bedside, updated, questions answered. 05/10 the patient has been seen and examined at bedside, discussed with the RN, no acute events overnight, he remains comfortably in bed, alert oriented x3, hemodynamically stable, afebrile, saturating normal on room air, tolerating diet. Heparin drip discontinued, patient is started on Eliquis 5 mg p.o. b.i.d.. Patient getting broad-spectrum IV antibiotics down my visit. Discharge plan discussed with case management, pending approval for the patient to be discharged to group home [facility] ( [facility]) for continuation of medical care. Mother at bedside during my visit, all questions answered. REVIEW OF SYSTEMS CONSTITUTIONAL: Denies fevers, chills, or night sweats. No unintentional weight loss reported. NEUROLOGICAL: Denies headache, amaurosis fugax, motor weakness, sensory deficit, vertigo/spinning sensation, gait abnormalities, or tremors. ENT: No hearing loss, otalgia, otorrhea, rhinitis, rhinorrhea, hoarseness, or sore throat. CARDIOVASCULAR: Denies any exertional angina, dyspnea on exertion, orthopnea, paroxysmal nocturnal dyspnea, palpitations, life-threatening arrhythmias, claudication. PULMONARY: Denies any shortness of breath, cough, phlegm/sputum, hemoptysis, pleuritic chest pain. SLEEP: Denies morning headaches, daytime somnolence or napping. Denies difficulty falling asleep, staying asleep, waking from sleep. Denies knowledge of snoring. GASTROINTESTINAL: Denies any type of dysphagia to either liquids or solids. Denies nausea, vomiting, pyrosis, early satiety, abdominal pain, diarrhea, constipation, or changes in stool consistency or caliber. Denies coffee-ground emesis, hematemesis, hematochezia, or melanotic stools. GENITOURINARY: Denies frequency, urgency, nocturia, hematuria or incontinence (Storage/Irritative symptoms.) Low urinary stream, straining to void, urinary intermittency or hesitancy, splitting of the voiding stream, terminal dribbling. ENDOCRINOLOGIC: Denies polyuria, polydipsia, polyphagia or heat/cold intolerances. HEMATOLOGIC: Denies thrombophilia/previous clots, or coagulopathy/bleeding disorders. ONCOLOGIC: Denies personal history of malignancy. DERMATOLOGIC: Denies rashes or pruritus. PSYCHIATRIC: Denies any suicidal or homicidal ideation. Denies hallucinations. PHYSICAL EXAM GENERAL APPEARANCE: Patient awake, following commands, NG tube to intermittent suction. NEUROLOGICAL: Cranial nerves II-XII grossly intact. Motor is 5/5 in bilateral upper and lower extremities proximal to distal. No sensory deficits. HEENT: Face is symmetric. Pupils are equal and reactive. Extraocular movements are intact. NECK: Supple. No JVD. No thyromegaly. No submental, submandibular, pre- /postauricular, occipital or supraclavicular lymphadenopathy. CHEST: Normal chest expansion. No Telemetry. LUNGS: Absence of any rales, rhonchi or any wheezing. CARDIOVASCULAR: Regular. S1 and S2 normal. No appreciable rubs, murmurs or gallops. ABDOMEN: Liquid output colostomy bag noted. : Deferred. No Doe. EXTREMITIES: Mild swelling to the right knee area, lidocaine patch in place. SKIN: No skin breakdown. Vital Signs (last 8hr) Date Time Temp Pulse Resp B/P (MAP) Pulse Ox O2 Delivery O2 Flow Rate FiO2 05/10/25 12:08 97.3 88 16 119/60 Room Air 05/10/25 07:40 98.4 89 20 115/61 Room Air 05/10/25 06:44 89 22 28 LABS: Laboratory: Test 05/10/25 11:05 05/10/25 07:50 05/10/25 04:16 05/09/25 06:48 Range/Units Whole Blood Glucose 123 H 70-110 MG/DL Vancomycin Level Trough 15.2 # 10.0-20.0 UG/ML White Blood Count 17.6 #H 4.8-10.8 K/uL Red Blood Count 4.20 L 4.50-6.20 MIL/uL Hemoglobin 10.3 L 14.0-18.0 g/dL Hematocrit 33.2 L 42-54 % Mean Corpuscular Volume 79.0 79-99 fL Mean Corpuscular Hemoglobin 24.5 L 27.0-33.0 pg Mean Corpuscular Hemoglobin Concent 31.0 L 32.0-36.0 g/dL Red Cell Distribution Width 22.3 H 11.0-15.5 % Platelet Count 267 130-400 K/uL Mean Platelet Volume 10.6 H 7.5-10.5 fL Nucleated Red Blood Cells 0.0 0.0-0.19 % Prothrombin Time 11.4 9.6-11.6 SEC Prothromb Time International Ratio 1.08 0.85-1.15 Activated Partial Thromboplast Time 30.9 # 26.3-35.5 SEC Sodium Level 129 L 136-145 mmol/L Potassium Level 3.7 3.5-5.1 mmol/L Chloride Level 93 L 101-111 mmol/L Carbon Dioxide Level 30 21-32 mmol/L Blood Urea Nitrogen 30 H 7-18 mg/dL Creatinine 0.9 0.5-1.3 mg/dL Glomerular Filtration Rate Calc 114 >90 mL/min Random Glucose 125 H 70-105 mg/dL Total Calcium 8.5 8.5-10.1 mg/dL Magnesium Level 2.00 1.80-2.40 mg/dL Total Bilirubin 1.6 H 0.2-1.0 mg/dL Aspartate Amino Transf (AST/SGOT) 38 H 10-37 U/L Alanine Aminotransferase (ALT/SGPT) 43 # 12-78 U/L Alkaline Phosphatase 271 H 50-136 U/L Total Protein 6.8 6.0-8.3 g/dL Albumin 2.0 L 3.5-5.0 g/dL Procalcitonin 1.27 H 0.05-0.5 ng/mL Current Medications Medications (Trade) Dose Ordered Sig/Checo Route PRN Reason Start Time Stop Time Status Last Admin Dose Admin Acetaminophen (TYLenol 325MG TAB) 650 mg Q6H PRN PO FEVER/pain 1-3 04/19/25 22:00 05/19/25 21:59 05/05/25 11:49 650 MG Apixaban (EliquIS) 5 mg BID PO 05/09/25 21:00 06/08/25 20:59 05/10/25 08:06 5 MG Benzocaine (Cepacol Sore Throat Lozenge) 1 each Q4H PRN MM SORE THROAT 11/8/25 11:30 06/05/25 11:29 05/07/25 08:43 1 EACH Benzonatate (Tessalon 100mg Caps) 100 mg Q8H PRN PO COUGH 05/03/25 11:00 06/02/25 10:59 05/03/25 11:32 100 MG Cefepime HCl (MAXipime 2 gm vial) 2 gm Q8H IVPB 04/22/25 13:00 04/30/25 13:07 DC 04/30/25 04:27 2 GM Cefepime HCl (MAXipime 2 gm vial) 2 gm Q8H IVPB 04/30/25 16:00 05/01/25 12:05 DC 05/01/25 00:34 2 GM Ceftriaxone Sodium (ROCEphine 1G INJ) 1 gm Q24H IVPB 04/20/25 10:00 04/22/25 12:41 DC 04/22/25 10:53 1 GM Dexamethasone Sodium Phosphate (dexaMETHasone 4MG/ML 1ML VIAL) 10 mg Q24H IV 05/01/25 17:00 05/02/25 09:13 DC 05/01/25 17:22 10 MG Dexamethasone Sodium Phosphate (dexaMETHasone 10MG/ML 1ML VIAL) 10 mg Q24H IV 05/02/25 17:00 05/06/25 11:21 DC 05/05/25 17:42 10 MG Dextrose 1,000 ml @ 50 mls/hr Q20H IV 04/25/25 08:00 04/25/25 16:53 DC 04/25/25 10:38 100 MLS/HR Doxycycline Hyclate 250 ml @ 125 mls/hr Q12H IV 04/21/25 08:30 04/22/25 12:41 DC 04/22/25 08:14 125 MLS/HR Enoxaparin Sodium (Lovenox) 40 mg DAILY SQ 04/20/25 09:00 04/22/25 20:00 DC 04/22/25 08:14 40 MG Enoxaparin Sodium (Lovenox) 40 mg Q12H SQ 04/22/25 21:00 04/27/25 13:24 DC 04/27/25 08:10 40 MG Famotidine (Pepcid 20mg Vial) 20 mg BID IV 05/02/25 21:00 05/06/25 11:27 DC 05/06/25 09:13 20 MG Famotidine (Pepcid 20mg Tab) 20 mg DAILY PO 04/20/25 09:00 05/02/25 12:03 DC 04/30/25 09:23 20 MG Fluconazole (DiFLUCan 100 mg TAB) 200 mg Q24H PO 05/01/25 12:30 05/02/25 12:03 DC Fluconazole/ Sodium Chloride (DiFLUCan 200 MG/ NS 100 ML) 200 mg Q24H IVPB 05/02/25 12:00 06/01/25 11:59 05/09/25 11:21 200 MG Furosemide (LASix 20MG VIAL) 20 mg Q12H IV 04/29/25 11:00 05/29/25 10:59 05/09/25 23:08 20 MG Furosemide (LASix 20MG VIAL) 20 mg Q8H IV 04/24/25 19:00 04/25/25 03:01 DC 04/25/25 03:06 20 MG Heparin Sodium (Porcine) (HEParin 5,000 UNIT VIAL) *calculation based on ACTUAL B... AD PRN IV HEPARIN PROTOCOL 04/27/25 14:00 05/09/25 17:45 DC 05/09/25 08:25 5,862 UNIT Heparin Sodium/ Dextrose 250 ml @ 0 mls/hr Q6H IV 04/27/25 14:00 05/09/25 17:45 DC 05/09/25 16:44 0 MLS/HR Hydralazine HCl (APRESOLine 20MG INJ) 5 mg Q6H PRN IV For:SBP above 160;DBP above 90 04/20/25 16:00 05/20/25 15:59 Hydralazine HCl (APRESOLine 20MG INJ) 10 mg Q6H PRN IV For:SBP above 160;DBP above 90 04/19/25 22:00 04/20/25 10:52 DC Hydromorphone HCl (DiLAUDid 0.5MG INJ) 0.5 mg Q4H PRN IVP SEVERE PAIN (7-10) 04/22/25 20:00 04/27/25 19:59 DC Ipratropium [place] (AtrovENT UD) 0.5 MG Q6H PRN IH SHORTNESS OF BREATH 04/28/25 19:30 05/28/25 19:29 04/29/25 11:10 0.5 MG Iron Sucrose (VenoFER) 200 mg DAILY IV 04/26/25 09:00 04/28/25 11:00 DC 04/28/25 09:20 200 MG Ketorolac Tromethamine (toRADol) 15 mg Q6H PRN IM MODERATE PAIN (4-6) 04/30/25 11:30 05/05/25 11:29 DC 05/03/25 14:33 15 MG Ketorolac Tromethamine (toRADol) 15 mg Q6H PRN IV MODERATE PAIN (4-6) 04/20/25 11:00 04/22/25 19:58 DC 04/20/25 22:08 15 MG Ketorolac Tromethamine (toRADol) 15 mg Q6H PRN IV MODERATE PAIN (4-6) 05/05/25 14:30 05/10/25 14:29 05/09/25 13:28 15 MG Labetalol HCl (TRANdate 20MG SYG) 10 mg Q6H PRN IV SUSTAINED HR >120 04/23/25 00:00 05/23/25 00:00 Lactated Ringer's 1,000 ml @ 50 mls/hr Q20H IV 04/21/25 12:30 04/25/25 07:47 DC 04/24/25 02:58 75 MLS/HR Lactated Ringer's 1,000 ml @ 100 mls/hr Q10H IV 04/19/25 22:00 04/20/25 10:52 DC 04/21/25 12:40 100 MLS/HR Lactulose (Constulose 20gm/ 30ml Udcup) 20 gm ACHS PRN PO CONSTIPATION 04/29/25 20:00 04/30/25 13:06 DC 04/30/25 09:33 20 GM Lactulose (Constulose 20gm/ 30ml Udcup) 20 gm BID PRN PO CONSTIPATION 04/19/25 22:00 04/29/25 19:41 DC Lactulose (Constulose 20gm/ 30ml Udcup) 20 gm Q6HWA PRN PO CONSTIPATION 04/30/25 13:00 05/30/25 12:59 Lidocaine (Lidocaine Patch 4%) 1 each DAILY TP 04/21/25 09:00 05/21/25 08:59 05/10/25 08:06 1 EACH Magnesium Sulfate 50 ml @ 0 mls/hr PROTOCOL IV 04/21/25 08:30 05/21/25 08:29 04/24/25 06:11 25 MLS/HR Meropenem (Merrem 1gm) 1 gm Q8H IVPB 05/01/25 12:30 05/02/25 12:29 DC 05/02/25 04:15 1 GM Meropenem (Merrem 1gm) 1 gm Q8H IVPB 05/04/25 16:30 05/14/25 16:29 05/10/25 08:06 1 GM Metoclopramide HCl (regLAN 10MG IV) 10 mg Q6H6 IVP 05/01/25 18:00 05/31/25 17:59 05/10/25 05:43 10 MG Metronidazole/ Sodium Chloride 100 ml @ 100 mls/hr Q8H6 IVPB 04/22/25 14:00 05/02/25 13:59 DC 05/02/25 09:55 100 MLS/HR Morphine Sulfate (morPHINE 4MG SYG) 4 mg Q4H PRN IVP SEVERE PAIN (7-10) 04/19/25 22:00 04/20/25 10:52 DC Nystatin (NystOP 15 GM POWDER) 1 APPLICATION BID TP 04/26/25 14:00 05/26/25 13:59 05/09/25 21:25 1 APPL Ondansetron HCl (zoFRAN 4MG INJ) 4 mg Q6H PRN IV NAUSEA/VOMITING 04/19/25 22:00 05/19/25 21:59 04/24/25 22:19 4 MG Pantoprazole Sodium (PROTonix 40MG INJ) 40 mg BID IVP 05/06/25 21:00 06/05/25 20:59 05/10/25 08:06 40 MG Pharmacy Profile Note (Pharmacy Communication) 1 each ONCE MISC 05/01/25 12:30 05/01/25 12:11 DC Pharmacy Profile Note (Pharmacy Communication) 1 each ONCE MISC 05/04/25 16:30 05/04/25 16:22 DC Potassium Chloride 100 ml @ 100 mls/hr PROTOCOL PRN IV hypokalemia 05/01/25 21:00 05/31/25 20:59 05/01/25 22:29 100 MLS/HR Promethazine HCl (Phenergan) 12.5 mg Q8H5 PRN IM NAUSEA/VOMITING 04/22/25 12:30 05/22/25 12:29 04/22/25 12:25 12.5 MG Sodium Chloride 500 ml @ 0 mls/hr Q0M STAT IV 04/22/25 13:17 04/22/25 13:22 DC 04/22/25 14:39 600 MLS/HR Vancomycin HCl 250 ml @ 125 mls/hr Q12H IV 05/08/25 09:00 05/18/25 08:59 05/09/25 21:24 125 MLS/HR Vancomycin HCl 250 ml @ 125 mls/hr Q12H IV 05/06/25 08:00 05/08/25 01:53 DC 05/07/25 21:18 125 MLS/HR Vancomycin HCl 250 ml @ 125 mls/hr Q24H IV 05/01/25 05:00 05/06/25 07:19 DC 05/05/25 05:03 125 MLS/HR Vancomycin HCl 250 ml @ 125 mls/hr Q8H IV 04/29/25 21:00 04/30/25 14:25 DC 04/30/25 05:52 125 MLS/HR Vancomycin HCl (Vancomycin Protocol) 1 each AD IV 04/22/25 15:00 04/23/25 22:23 DC Vancomycin HCl (Vancomycin Protocol) 1 each AD IV 04/29/25 11:00 05/13/25 10:59 DIAGNOSTICS / RADIOLOGY: [ ] ASSESSMENT: Severe sepsis with MODS, resolved Leukocytosis Gram-positive cocci bacteremia Status post left rib biopsy by IR on 04/26/2025 New right upper lobe spiculated infiltrative mass measuring 5.4 x 4.6 cm infiltrating mediastinal pleura and albumin in the right main pulmonary artery Bulky mediastinal lymphadenopathy with the largest node measuring 4 cm involving the right paratracheal, prevascular, and subcarinal stations Multiple bilateral spiculated pulmonary nodules consistent with metastatic disease progression Bilateral marked diffuse adrenal enlargement likely metastatic or hyperplastic Left iliac fossa 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 Right upper extremity DVT involving the axillary and brachial veins Small-bowel obstruction Stage IV colorectal cancer with metastatic disease to the lung, pathology consistent with moderately differentiated adenocarcinoma, POA PLAN: the patient has been seen and examined at bedside, discussed with the RN, no acute events overnight, he remains comfortably in bed, alert oriented x3, hemodynamically stable, afebrile, saturating normal on room air, tolerating diet. Heparin drip discontinued, patient is started on Eliquis 5 mg p.o. b.i.d.. Patient getting broad-spectrum IV antibiotics down my visit. Discharge plan discussed with case management, pending approval for the patient to be discharged to group home [facility] ( [facility]) for continuation of medical care. Mother at bedside during my visit, all questions answered. NEURO: Minimize central acting medications as possible. Fall Precautions. Well lighted room through the day and minimize interruptions through the night to prevent acute delirium. PULMONARY: Supplemental 02 as needed BiPAP as necessary, for respiratory distress Titrate Fio2 to keep Spo2 > or = 90% DuoNebs and CPT as needed IS hourly while awake for pulmonary hygiene prn Out of bed to chair as tolerated Maintain aspiration precautions at all times CARDIOVASCULAR: Follow hemodynamics. Vital signs per facility protocol GI & NUTRITION: Continue nutritional support Aspirations precautions Prokinetic agents and laxatives as needed KIDNEYS & ELECTROLYTES: Strict monitoring of intake and output Daily weights Avoid nephrotoxic agents Monitor electrolytes and replace as needed Goal urine output of 30mL/hr or 0.5mL/kg/hr Medications to be dosed according to renal function. Avoid contrast if possible ENDOCRINE: Maintain blood glucose between 100-180 at all times. Insulin sliding scale for blood glucose management Hypoglycemia and hyperglycemia protocol in place INFECTIOUS DISEASE: Trend temperature, WBC and procalcitonin level Follow cultures, deescalate antibiotics as soon as possible. Panculture if new onset fever HEMATOLOGY & COAGULATION: Monitor H&H. Keep Hgb > 7 Transfuse 1 unit of PRBC for Hgb < 7 Transfuse 1 pack of platelets of platelets < 20, 000 Watch for any signs and symptoms of bleeding SKIN: Pressure ulcer prevention per facility protocol Specialty mattress as needed ORTHO/REHAB Continue PT/OT PRN: MEDICATIONS Tylenol 650 mg po every 4 hrs for fever zofran 4 mg IV every 6 hrs for n/v Hydralazine 5 mg IV every 4 hrs systolic pressure > 160 bowel regiment: lactulose 20 gm PO BID PRN constipation Supportive measures: Continue GI and DVT prophylaxis Disposition: Pending improvement in clinical condition All questions answered time spent: > 35 min TITA PETERSON MD May 10, 2025 12:43
--- NOTE | 2025-05-10 17:53 | PN ---
INFECTIOUS DISEASE PROGRESS NOTE Date of Service: May 10, 2025 SUBJECTIVE: This is a 35-year-old male patient who was seen and examined at bedside in room 319. Case management working on SNF placement. Patient is to continue current IV antibiotics for 7 more days at SNF. PHYSICAL EXAM EYES: Anicteric. Pupils equal and reactive. HENT: No oral thrush seen, moist Oral mucosa. NECK: Supple, no JVD or thyromegaly. LUNGS: Diminished. Oxygen via nasal cannula. CARDIOVASCULAR: S1, S2 regular. No murmur heard. ABDOMEN: Abdomen is large but Soft, bowel sounds present. Left colostomy. CENTRAL NERVOUS SYSTEM: Awake, alert, oriented x 3. SKIN: No rashes, no swelling. LYMPHATICS: No peripheral lymphadenopathy. MUSCULOSKELETAL: Right knee pain. EXTREMITIES: No cyanosis or clubbing. Generalized weakness. BACK: No deformity, no pressure ulcer. GENITOURINARY: No dysuria or hematuria. Vital Sign (Last 12 Hours) 05/10/25 05/10/25 05/10/25 05/10/25 06:44 07:40 08:00 12:08 Temp 98.4 97.3 Pulse 89 89 88 Resp 22 20 16 B/P (MAP) 115/61 119/60 Pulse Ox 95 O2 Delivery Room Air Room Air* Room Air O2 Flow Rate 0 FiO2 28 21 05/10/25 15:27 Temp 99.0 Pulse 93 Resp 18 B/P (MAP) 118/64 Pulse Ox 92 O2 Delivery Room Air Intake & Output (last 24hrs) 05/09/25 05/09/25 05/10/25 15:00 23:00 07:00 Intake Total 565.0 ml 100.0 ml Output Total 1550 ml 1600 ml Balance -985.0 ml -1500.0 ml LABS: Laboratory: Test 05/10/25 16:04 05/10/25 07:50 05/10/25 04:16 05/09/25 06:48 Range/Units Whole Blood Glucose 114 H 70-110 MG/DL Vancomycin Level Trough 15.2 # 10.0-20.0 UG/ML White Blood Count 17.6 #H 4.8-10.8 K/uL Red Blood Count 4.20 L 4.50-6.20 MIL/uL Hemoglobin 10.3 L 14.0-18.0 g/dL Hematocrit 33.2 L 42-54 % Mean Corpuscular Volume 79.0 79-99 fL Mean Corpuscular Hemoglobin 24.5 L 27.0-33.0 pg Mean Corpuscular Hemoglobin Concent 31.0 L 32.0-36.0 g/dL Red Cell Distribution Width 22.3 H 11.0-15.5 % Platelet Count 267 130-400 K/uL Mean Platelet Volume 10.6 H 7.5-10.5 fL Nucleated Red Blood Cells 0.0 0.0-0.19 % Prothrombin Time 11.4 9.6-11.6 SEC Prothromb Time International Ratio 1.08 0.85-1.15 Activated Partial Thromboplast Time 30.9 # 26.3-35.5 SEC Sodium Level 129 L 136-145 mmol/L Potassium Level 3.7 3.5-5.1 mmol/L Chloride Level 93 L 101-111 mmol/L Carbon Dioxide Level 30 21-32 mmol/L Blood Urea Nitrogen 30 H 7-18 mg/dL Creatinine 0.9 0.5-1.3 mg/dL Glomerular Filtration Rate Calc 114 >90 mL/min Random Glucose 125 H 70-105 mg/dL Total Calcium 8.5 8.5-10.1 mg/dL Magnesium Level 2.00 1.80-2.40 mg/dL Total Bilirubin 1.6 H 0.2-1.0 mg/dL Aspartate Amino Transf (AST/SGOT) 38 H 10-37 U/L Alanine Aminotransferase (ALT/SGPT) 43 # 12-78 U/L Alkaline Phosphatase 271 H 50-136 U/L Total Protein 6.8 6.0-8.3 g/dL Albumin 2.0 L 3.5-5.0 g/dL Procalcitonin 1.27 H 0.05-0.5 ng/mL ASSESSMENT: Hypoxic respiratory failure, requiring oxygen support. Staphylococcus epidermidis bacteremia, which is a contaminant. Persistent Leukocytosis. Right knee osteoarthritis. Bilateral pulmonary nodules consistent with metastatic disease, s/p CT guided lung biopsy on 04/26/2025,& s/p Port-A-Cath placement 05/08/2025. Small-bowel obstruction, resolved. Acute renal failure, resolved. Morbid obesity. Recent Colorectal mass with resection and colostomy creation. Right upper extremity DVT. Generalized Debility. PLAN: Continue Meropenem. Continue fluconazole.. Continue vancomycin per pharmacy protocol. Continue with the aggressive physical therapy. Continue nutritional support. Case management working on SNF placement. Patient is to continue current IV antibiotics for 7 more days at SNF. This case was reviewed and discussed with my supervising physician Dr. Richards and the above assessment and plan was formulated and agreed upon. ATTESTATION BY PHYSICIAN I have seen and examined the patient. I reviewed the documentation, medical decision making, and treatment plan as noted by the mid-level provider above. I agree with the findings and plan of care. JULIANNA RICHARDS MD, [facility] May 10, 2025 17:53
--- NOTE | 2025-05-10 18:03 | PN ---
NEPHROLOGY NOTE DATE OF SERVICE: 05/09/2025 SUBJECTIVE: This patient has multiple medical problems including sepsis. The patient has status post Port-A-Cath placement, bacteremia per reported before. The patient has metastatic cancer to the lung from colorectal cancer. All other systemic review is unchanged. The patient has a colostomy, recent rectal adenocarcinoma resection. Other systemic view is unchanged. No other associated findings. No other aggravating or relieving factors. PHYSICAL EXAMINATION: GENERAL: Pale, no other distress. Obese, lying in bed. VITAL SIGNS: Blood pressure 113/71, respiratory rate is 18, pulse of 104. HEENT: Head is atraumatic, normocephalic. Pupils are round and reactive. Sclerae are anicteric. Conjunctivae not pale. Oral mucosa is not dry. NECK: Without masses or bruits. Thyroid is palpable. Neck has no bruits. CHEST: Shows equal percussion . LABORATORY DATA: We have reviewed available labs in detail. Lab data has shown hemoglobin is 11.9, white cell count is elevated up to 24,000. BUN elevated at 29. Low sodium. PROBLEMS: * Renal dysfunction. * Electrolyte problem in a patient who has metastatic cancer and obesity and multiple other comorbidities. No other associated findings. PLAN: Plan will be to continue followup on electrolytes and renal function. Avoid nonsteroidal drugs. Avoid nephrotoxic. Adjust doses of medicine. White cell count is high. The patient has Port-A-Cath placement for continued treatments and we will monitor closely. Condition remains critical, guarded. TID: [id number] RECEIPT: [id number]
--- NOTE | 2025-05-10 21:08 | PN ---
[facility] PROGRESS NOTE Date Patient Seen: May 10, 2025 Time of Visit: 21:07 Supervising Physician: Dr. Andrea Olvera Inpatient Consults: Dr. Nguyen, Dr. Abad, Dr. Henry, Dr. Johnson PROBLEM LIST: Severe sepsis with MODS, resolving Leukocytosis Staphylococcus epidermidis bacteremia, which is a contaminant. Status post left rib biopsy by IR on 04/26/2025 New right upper lobe spiculated infiltrative mass measuring 5.4 x 4.6 cm infiltrating mediastinal pleura and albumin in the right main pulmonary artery Bulky mediastinal lymphadenopathy with the largest node measuring 4 cm involving the right paratracheal, prevascular, and subcarinal stations Multiple bilateral spiculated pulmonary nodules consistent with metastatic disease progression (+) adenocarcinoma Stage IV Colorectal cancer with metastatic disease to the lung Bilateral marked diffuse adrenal enlargement likely metastatic or hyperplastic Left iliac fossa 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 deep venous thrombosis involving the right axillary vein and brachial veins INTERVAL HISTORY: 05/01 - Patient seen and examined, all labs and imaging have been reviewed, patient is awake alert and oriented, nursing reports no acute events overnight. Patient is afebrile, vital signs are stable, good sats on nasal cannula 2 L Patient continues on the cefepime, vanc and Flagyl, the last blood cultures positive for from the blood, staph on 04/21 Sputum is pending He continues on duo nebs He is on Lasix 20 mg and we have 520 of urine out in 12 hours Chest x-ray is pending 05/02 - Patient is seen and examined at the bedside. Pt is laying in bed resting quietly accompanied by his mom and other family members. Patient appears to be weak, deconditioned, and hypoxemic requiring 2 L via N/C. Patient continues utilizing Bipap nightly. Pt reports he uses a Cpap at home nightly. Patient continues on multiple broad spectrum antibiotics which are being managed by Dr Nguyen. Most recent cxray shows resolving left upper lung infiltrate. White count slowly trending down. Biopsy results are still pending. Patient continues on heparin drip for DVT. PT was evaluated by Dr Johnson and depending on Lung nodule biopsy results, will plan for genetic phenotyping for targeted therapy if feasible. Pt had a KUB performed which shows partial small bowel obstruction. As per nursing, surgery team has been made aware. Will continue to follow closely. 05/03 - Patient was seen and examined, patient is sitting at the side of the bed. Patient is just back from his small bowel pass through. He states that he has had numerous loose stools and is passing gas. He is hoping to resume his diet shortly. We are waiting on surgery's recommendations Patient is awake alert and oriented reporting no pain or discomfort Good saturations on room air His vital signs are stable We ordered new cultures he continues on Merrem fluconazole and vancomycin 05/04 - patient is seen in the evaluated at the bedside. Patient is sitting up in bed accompanied by his mom. Patient appears to be weak, deconditioned and hypoxemic currently requiring2 L via nasal cannula. Patient continues using a CPAP nightly. Patient remains NPO as suspected small bowel obstruction. Patient had a small bowel series and currently pending official results. Patient does report continues with large watery stools. Patient reports he is hungry in hope to resume his diet soon. Follow surgery recommendations. As per Dr. Johnson's note, patient has stage IV colorectal cancer with metastatic disease to the lungs. Pathology is consistent with moderately differentiated adenocarcinoma. Patient is advised on the importance of getting up out of bed and attempting to work with physical therapy as tolerated. Prognosis remains guarded. Patient continues on broad-spectrum antibiotics per Infectious Disease. White count trending down. 05/05 - patient is seen sitting up in bed continues to be weak, deconditioned hypoxemic requiring 2 L via nasal cannula. Patient continues utilizing his CPAP nightly. No acute changes reported overnight. Patient's small-bowel series shows resolving Gastrografin small-bowel follow-through with24 hour Gastrografin has rates sigmoid colon and transverse colon. Patient has been started on clear liquid diet and instructed to advance as tolerated per surgical team. Patient continues on heparin drip for right upper extremity DVT. Patient continues on multiple broad-spectrum antibiotics as per Infectious Disease. Patient is being followed closely by Oncology. Patient advised to get out of bed and work with physical therapy as tolerated. 05/06-seen and examined the patient while resting in bed with the head of the bed elevated patient has limited mobility, awake alert and oriented in no acute distress with family members present. Reviewed and discussed with family members the patient's assessment condition patient is not short of breath, is not presenting in acute hypoxic respiratory failure, and denies shortness of breath, fever, chills, nauseousness, constipation, and diarrhea currently. Hemodynamically stable. Afebrile a.m. labs have been ordered. Reviewed and discussed with family members diagnostic tests results, vital signs, and laboratory results. 05/07 - patient is seen and evaluated at the bedside. Patient is lying in bed resting quietly accompanied by his mom. Patient is awake alert and oriented x3. Patient with no signs of acute distress. Patient remains on room air denies chest discomfort, chest pain or dyspnea. Patient does appear to be very weak and reports he has not been able to ambulate yet. Patient does sitting at the bedside however still very weak. Patient diet has been advanced and so far tolerating well, with no nausea, vomiting or abdominal pain. Patient reports his last bowel movement was yesterday. Mom reports patient is scheduled for a Port-A-Cath placement tomorrow. Vital signs are stable. 05/08 - patient is seen lying in bed resting quietly with no signs of acute distress. Patient with no signs of acute respiratory distress during my evaluation. Patient is awake alert and oriented x3. patient remains on room air denies chest discomfort, chest pain or dyspnea. No acute changes reported overnight. Patient does continue to be very weak and deconditioned and unable to ambulate. Patient advised to continue working with physical therapy as tolerated. As per nursing, patient is scheduled for Port-A-Cath placement today. From respiratory standpoint, patient is stable. Vital signs are stable. Labs do show patient continues with leukocytosis. Patient continues on broad- spectrum antibiotics as per Infectious Disease. We will continue to follow with you. 05/09-patient assess while resting in bed head of the bed is elevated awake, alert, and oriented, and appearing in no acute distress examined and assess while family members are present. Patient is hemodynamically stable and af ebrile. Reviewed and discussed with family members reports of diagnostic tests, plan of care, treatment plans, medications being utilized, status of and plan catheter to help assist in the treatment of the right lobe metastatic mass. Nursing staff reports no adverse events occurring overnight impacting patient. Further orders per course of stay. A.m. labs ordered. 05/10-examined and assess the patient resting in bed in a high Loja's position with parents present. Discussed with family and patient lab results, vital signs, treatment plan, medications being used as well as potential transfer. After discussion patient had no questions or concerns noted family. Patient is afebrile. Vital signs were stable. Patient is weaned off supplemental oxygen on room air. Denies shortness or breath, fever, chills, nauseousness, constipation and diarrhea currently. Further orders per course of stay dispo per primary team. PLAN Supplemental oxygen as needed Wean off as tolerated Continue CPAP nightly and p.r.n. Continue diet as per sx team Follow surgical team recs Continue antibiotics as per Infectious Disease Follow up Dr. Johnson recommendations Pending port a cath placement today REVIEW OF SYSTEMS: 12 point ROS reviewed with patient. Pertinent positives mentioned above. Otherwise negative. PHYSICAL EXAM: GENERAL: alert, obese, weak, awake oriented x 3 HEENT: EOMI, Sclera non icteric, moist mucosa NC NECK: Supple, no JVD, trachea midline LUNGS: Diminished breath sounds bilaterally. No wheezes HEART: Normal rate and rhythm. Normal S1 and S2, without murmurs ABD: morbidly obese Abdomen soft, nontender. Bowel sounds hypoactive EXT: No clubbing cyanosis or edema NEURO: Alert and oriented to person, follows commands Vital Signs (last 8hr) Date Time Temp Pulse Resp B/P (MAP) Pulse Ox O2 Delivery O2 Flow Rate FiO2 05/10/25 19:17 97 18 N/A Room Air 21 05/10/25 19:10 95 Room Air* 0 28 CPAP+ 05/10/25 15:27 99.0 93 18 118/64 92 Room Air LABS: Hematology Labs: Test 05/10/25 04:16 Range/Units White Blood Count 17.6 #H 4.8-10.8 K/uL Red Blood Count 4.20 L 4.50-6.20 MIL/uL Hemoglobin 10.3 L 14.0-18.0 g/dL Hematocrit 33.2 L 42-54 % Mean Corpuscular Volume 79.0 79-99 fL Mean Corpuscular Hemoglobin 24.5 L 27.0-33.0 pg Mean Corpuscular Hemoglobin Concent 31.0 L 32.0-36.0 g/dL Red Cell Distribution Width 22.3 H 11.0-15.5 % Platelet Count 267 130-400 K/uL Mean Platelet Volume 10.6 H 7.5-10.5 fL Nucleated Red Blood Cells 0.0 0.0-0.19 % Chemistry Labs: Test 05/10/25 16:04 05/10/25 04:16 05/09/25 06:48 Range/Units Whole Blood Glucose 114 H 70-110 MG/DL Sodium Level 129 L 136-145 mmol/L Potassium Level 3.7 3.5-5.1 mmol/L Chloride Level 93 L 101-111 mmol/L Carbon Dioxide Level 30 21-32 mmol/L Blood Urea Nitrogen 30 H 7-18 mg/dL Creatinine 0.9 0.5-1.3 mg/dL Glomerular Filtration Rate Calc 114 >90 mL/min Random Glucose 125 H 70-105 mg/dL Total Calcium 8.5 8.5-10.1 mg/dL Magnesium Level 2.00 1.80-2.40 mg/dL Total Bilirubin 1.6 H 0.2-1.0 mg/dL Aspartate Amino Transf (AST/SGOT) 38 H 10-37 U/L Alanine Aminotransferase (ALT/SGPT) 43 # 12-78 U/L Alkaline Phosphatase 271 H 50-136 U/L Total Protein 6.8 6.0-8.3 g/dL Albumin 2.0 L 3.5-5.0 g/dL Procalcitonin 1.27 H 0.05-0.5 ng/mL Coagulation Labs: Test 05/10/25 04:16 Range/Units Prothrombin Time 11.4 9.6-11.6 SEC Prothromb Time International Ratio 1.08 0.85-1.15 Activated Partial Thromboplast Time 30.9 # 26.3-35.5 SEC DIAGNOSTICS / RADIOLOGY RESULTS: [ ] PLAN NEURO: Minimize central acting medications as possible. Maintain fall precautions, adequate lighting during the day PULMONARY: Supplemental 02 as needed. Maintain aspiration precautions at all times CARDIOVASCULAR: Follow hemodynamics. Vital signs per facility protocol GI & NUTRITION: Continue with nutritional support. Continue stool softeners and laxatives as needed. KIDNEYS & ELECTROLYTES: Strict monitoring of intake, output and overall fluid balance. Avoid nephrotoxic medications to the extent possible. Medications to be dosed according to renal function. Monitor electrolytes and replace as needed ENDOCRINE: Maintain blood glucose between 100-180 at all times. Hypoglycemia protocol in place INFECTIOUS DISEASE: Trend temperature, WBC and procalcitonin level Follow cultures, deescalate antibiotics as soon as possible. Panculture if new onset fever ONCOLOGY/HEMATOLOGY/COAGULATION: Monitor for s/s of bleeding Monitor hemoglobin, coagulation studies as needed SKIN: Pressure ulcer prevention per facility protocol Specialty mattress ORTHO/REHAB: Continue PT/OT Prophylaxis: Continue GI and DVT prophylaxis Code Status: Full Resuscitation Disposition: Per primary team LEV ARCHER AGACNP May 10, 2025 21:08
--- NOTE | 2025-05-11 08:33 | DS ---
Discharge Summary Hospital Course Summary: Date of service 05/10/2025 The patient initially admitted to the hospital April 19, 2025 with the following history of the present illness: Mr. Walker is a 35-year-old male that was seen and examined today on 04/19/2025. Patient is a good historian of personal health. Patient's mother is at bedside. Patient reports that he came to the emergency department with a chief complaint of knee pain. Onset is three weeks ago. Duration is on and off. Character is described as aching. Location is right knee. Symptoms are aggravated with physical activity. There was no alleviating factors. Patient reports he has been diagnosed BY an orthopedic doctor in the outpatient setting with osteoarthritis, Dr. Henry three weeks ago. Today in the emergency department no diagnostic labs were done, right knee x-ray shows osteoarthritis. Emergency room physician recommended that patient be admitted so he could be evaluated by orthopedic service HOSPITAL COURSE 04/20 the patient has been seen and examined at bedside, case discussed with the RN, no acute events overnight, the time of my visit, the patient is awake, following commands, blood pressure 140/90, afebrile, saturating normal on room air. The patient is morbidly obese, he uses a CPAP at home, currently CPAP at bedside during my visit. WBC 14.0, hemoglobin 10.4, hematocrit 34.8, platelet count of 305. CMP shows sodium 141, potassium 3.5, BUN 70, creatinine 0.9, iron level of 25. X-ray of the knee showing moderate to severe three, power mental right knee osteoarthritis, predominantly in the lateral compartment, with small joint effusion. No acute fracture. Orthopedic physician consultation requested, we will follow input and recommendation. MRI of the right knee requested, however due to morbid obesity, might not be able to do it. Discussed with the mother is at the bedside, all questions answered, in agreement. 04/21 patient has been seen and examined at bedside, case discussed with the RN, no acute events overnight, the time my visit he is awake, following commands, admits mild dry nonproductive cough, spiked fever 102.6. Denied chest pain, shortness shortness for breath, no nausea, no vomiting, no abdominal discomfort. The patient has a colostomy bag, on examination, liquid stool noted. WBC slowly trending down at 12.7, hemoglobin stable 11.6. Magnesium 1.7. Added doxycycline 100 mg IV q.12 hours. Follow serology to include SARS antigen, influenza and rapid strep. We will give magnesium sulfate 2 g IV x1. We will order GI stool panel. Patient is scheduled for MRI to the right knee today, continue lidocaine patch, discussed with the orthopedic physician today, we will follow input and recommendation. 04/22 patient is seen and examined at bedside, discussed with the RN. Patient currently feels nauseated. He admits mild discomfort to the right lower quadrant. BP 135/77, mildly tachycardic at 108, saturating normal on room air. Maximum temperature last 24 hours 102.7. CBC shows a hemoglobin of 11.6, hematocrit 35.7, platelet count of 276, with a platelet count of 23.8. Creatinine 2.1. MRI of the right knee shows tricompartmental osteoarthritis with osteophytosis and diffuse cartilage loss, medial and lateral meniscal with complex degenerative tear involving posterior horns and bodies, meniscal tear severity grade 3, full-thickness chondral defect of the lateral femoral condyle, with a underlying subchondral edema, small reactive joint effusion with mild synovitis. We will upgraded the patient to the PCU, LR at 50 mL/hours, follow repeat CBC, CMP and magnesium level. Continue Rocephin and doxycycline IV. We will order a CT of the abdomen and pelvis without contrast to rule out intra- abdominal acute pathology. Orthopedic input noted and appreciated, patient with bad arthritis, we will finally benefit from knee replacement, however co nsidering his morbid obesity, it is not indicated right now. Recommended conservative approach. Mother at bedside, all questions answered, updated, in agreement with plan of care. 04/23 patient is seen and examined at bedside, discussed with the RN, no acute events overnight, patient upgraded to the ICU yesterday due to sepsis and developing small bowel obstruction. Today the patient is awake, following commands, he is NPO, NG tube to intermittent suction, BP 120/76, heart rate of 111, saturating 96% 3 L nasal cannula, temperature 98.4. WBC of 27.6, hemoglobin 10.6, hematocrit 35.5, platelet count 240, creatinine improved to 1 .2. Septic workup with blood culture positive for Staphylococcus epidermidis. Echocardiogram and chest x-ray pending. Patient will remain admitted to the ICU, continue broad-spectrum IV antibiotics, we will follow surgical input recommendation. Continue to follow critical Care and ID input and recommendation. And we will update the mother regarding results of CT of the abdomen pelvis and further plan of care when she is present in the room. CT abdomen and pelvis reviewed, as follows: * Patient is undergoing mass evaluation. * Interval progression since 22 April 2025 with a new right upper lobe spiculated infiltrative mass measuring 5.4 ??? 4.6 cm infiltrating mediastinal pleura and abutting the right main pulmonary artery. * Bulky mediastinal lymphadenopathy with largest node measuring 4 cm, involving right paratracheal, prevascular, precarinal, and subcarinal stations, increased since prior study. * Multiple bilateral spiculated pulmonary nodules (1???2.5 cm), consistent with metastatic disease progression. * Bilateral marked diffuse adrenal enlargement (Right 5.9 ??? 3.6 cm, Left 7.6 ??? 5.4 cm), likely metastatic or hyperplastic. 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 * Degenerative thoracolumbar spondylosis with L4 vertebral body wedging (30???40% height loss), unchanged. * Comparison is made with the exam dated 22 April 2025. Overall findings indicate worsening metastatic disease with new primary and gloria lesions and mechanical bowel obstruction requiring clinical and surgical correlation. Recommendations include oncologic evaluation and PET-CT staging, alongside urgent surgical consultation for bowel obstruction. 04/24 patient is seen and examined at bedside, discussed with the RN, no acute events overnight, patient downgraded from the ICU to the PCU, he remains NPO, NG tube connected to intermittent suction, output in the last 12 hours 200 mL. BP 146/150, heart rate of 101, afebrile, saturating 96-97% on nasal cannula. CBC shows a hemoglobin of 9.9, hematocrit 33.5, platelet count of 235, with WBC of 21.3. CMP with sodium 146, potassium 3.8, BUN of 18, creatinine 0.9, magnesium 1.8. Blood culture 04/21/2025 positive for Staphylococcus epidermidis. Repeat blood cultures 04/23/2025 no growth after 24 hours echocardiogram 04/23/2025 LVEF 50-55%, no left ventricle thrombus, no intracardiac masses, no valvular vegetations. Today chest x-ray pending. Patient will remain admitted to the PCU, NPO, intermittent suction, continue to follow surgical input recommendation, continue broad-spectrum IV antibiotics, follow WBC in a.m.. Follow KUB. I HAVE CONTACTED THE DEPARTMENT OF MEDICAL RECORDS [facility], SPOKE WITH ZENA AT PHONE NUMBER [phone], I HAVE REQUESTED MEDICAL RECORDS. WE WILL FOLLOW UP. 04/25 patient is seen and examined at bedside, case discussed with the RN, no acute events overnight, he remains comfortably in bed, NPO, NG tube to intermittent suction, he is awake, following commands, BP 128/90, area of 101, afebrile. Still feels distended. On examination colostomy bag, enema output noted. KUB pending. KUB from 04/24/2025 showing markedly dilated small bowel loops up to 5.6 cm, consistent with distal small-bowel obstruction, no pneumoperitoneum, pneumatosis intestinalis or portal venous gas. I received medical records from [facility], patient was admitted on 11/19/2024 and discharged 12/08/2024. Areolar in the hospital patient underwent exploratory laparoscopy, laparotomy and creation of transverse loop colostomy 11/28/2024. Patient was evaluated by oncologist Braulio Bell. It was di scussed with the patient mother regarding diagnosis of adenocarcinoma of the rectosigmoid colon with a very large fungating mass, discussed possibility of chemoradiation. Per my discussion with the mother, from [facility] the patient was discharged to [facility] to recover and from there he went home. Patient has not had a follow up appointment with the general surgeon or oncologist after that. We have requested Oncology consultation here during this admission. Pathology report from rectal biopsy shows moderately differentiated adenocarcinoma, then new pulmonary nodules and mediastinal lymphadenopathy as per CT scan indicates the possibility of metastatic disease. CEA is [id number]. Requested pulmonary nodule biopsy by IR. Patient will remain admitted to the PCU, we will continue NG tube to intermittent suction, NPO, TPN, follow surgical input and recommendation. Follow repeat KUB. Mother at bedside, updated, all questions answered. Plan of care discussed with the patient as well, in agreement. 04/26 patient is seen and examined at bedside, discussed with the RN, no acute events overnight, patient is status post CT-guided biopsy of left anterior rib mass, 04/26/2025, tolerated the procedure well. At the time of my visit, he is awake, following commands, denied chest pain, shortness shortness for breath, no nausea, no vomiting. Colostomy bag full of air. No stool or liquid noted. Plan is for the patient to start clear liquid diet and advanced as tolerated. We will follow results of pathology. Continue to follow a.m. labs. Mother at bedside, updated. 04/27 patient is seen and, discussed with the RN, no acute events overnight, alert oriented x3, tolerating clear liquid diet. Passing gas in the colostomy bag but no bowel movement yet. Patient was swollen to the right upper extremity. Doppler showing deep venous thrombosis involving the right axillary vein and brachial veins, nonocclusive thrombosis of the right cephalic vein (superficial venous thrombosis). Correlate clinically for pulmonary embolism risk. Hemoglobin of 10.4, hematocrit 35.9, platelet count of 18.7. Findings of Doppler discussed with the mother, we will start the patient on heparin drip, risks versus benefits discussed, agreed to proceed with the anticoagulation. We will insert midline in the left upper extremity. We will continue to clinically monitor the patient.status post CT-guided biopsy of left anterior rib mass, 04/26/2025, follow up pathology. Continue to follow oncology input and recommendation. 04/28 patient is seen and, discussed with the RN, no acute events overnight, alert oriented x3, remains admitted to the PCU, alert oriented x3 at the time of my visit, tolerating soft diet, passing gas but no BM yet. Doppler showing deep venous thrombosis involving the right axillary vein and brachial veins, nonocclusive thrombosis of the right cephalic vein (superficial venous thrombosis). Continue heparin drip. Oncology input noted and appreciated. Patient will need Port-A-Cath insertion before discharge home. status post CT- guided biopsy of left anterior rib mass, 04/26/2025, follow up pathology. Continue broad-spectrum IV antibiotics, trend WBC in a.m. per mother at bedside, updated. 04/29/25 The patient continue with Heparin drip given to DVT right axillary vein and brachial vein: will transition to po close to discharged. This patient will need Port-A-Cath insertion before discharge home. This patient need to be clear for Port-A-Cath insertion by infectious disease 04/30/25 patient is lying in bed primary nurse reports no events overnight. Patient we will have IR place Port-A-Cath tomorrow. Patient continues with broad-spectrum antibiotics continues heparin drip transitioned to p.o. post procedure. 05/01 patient is seen and, discussed with the RN, no acute events overnight, alert oriented x3, remains admitted to the PCU, alert oriented x3 at the time of my visit, tolerating soft diet, passing gas but no BM yet. Doppler showing deep venous thrombosis involving the right axillary vein and brachial veins, nonocclusive thrombosis of the right cephalic vein (superficial venous thrombosis). Continue heparin drip. Oncology input noted and appreciated. Patient will need Port-A-Cath insertion before discharge home. IR consultation requested. status post CT-guided biopsy of left anterior rib mass, 04/26/2025, follow up pathology. Continue broad-spectrum IV antibiotics, trend WBC in a.m. per mother at bedside, updated. On physical examination, only small liquid output from colostomy bag, no solid stool noted. Discussed with surgery, recommended small-bowel series. Continue to trend WBC in a.m.. Patient may require transfer to higher level of care, we will discuss with case management. 05/02 patient is seen and, discussed with the RN, no acute events overnight, alert oriented x3, remains admitted to the PCU, alert oriented x3 at the time of my visit, tolerating soft diet, passing gas. Colostomy bag on exam looks more full compared to yesterday however not solid stool yet. Discussed with the surgery yesterday, recommended small-bowel series, likely to be completed today, we will follow up. 05/03 patient is seen and examined at bedside, discussed with the RN, no acute events overnight, patient remains comfortably in bed, alert oriented x3, feels hungry, passing gas, liquid stool noted in colostomy bag, still pending to complete small-bowel series. Patient remains on heparin drip, swollen to the right upper extremity almost resolved. Denies pain to the right upper arm. Continue to follow a.m. labs. Oncology input noted and appreciated, biopsy consistent with adenocarcinoma. Patient has stage IV colorectal cancer with metastatic disease to the lung. Peripheral bloood smear shows microcytic hypochromic anemia consistent with iron deficiency anemia . There is teardrop cell, pelger huet cell and rouleaux formation .Increased number of WBCs observed with neutrophilia and hypersegmented neutrophils suggestive of underlying infection . Band cells observed. Platelet morphology and count within normal limits .Discussed with the mother at bedside, all questions answered. In agreement. 05/04 patient is seen and examined at bedside, discussed with the RN, no acute events overnight, patient remains comfortably in bed, alert oriented x3, small-bowel series done 05/02/2025, still pending report. Continue the patient on TPN. Mother at bedside, updated. Follow a.m. labs. 05/05 patient is seen and examined at bedside, discussed with the RN, no acute events overnight, during my visit comfortably in bed, alert oriented x3, on TPN, results of small-bowel series no evidence of obstruction, patient is started on clear liquid diet. We will advance to soft diet today. Mother and father at bedside during my visit, updated. Per the mother, she stated that the patient is still have pain on both knees on is trying to work with the physical therapist. We will start the patient on Toradol 15. mg IV every 6 hours as needed monitor renal function in a.m.. Continue to follow CBC in a.m. transfuse as needed. Hematology and ID input noted and appreciated. 05/06 patient is seen and examined at bedside, discussed with the RN, no acute events overnight, during my visit comfortably in bed, alert oriented x3, patient was started on full liquid diet yesterday, however had episode of vomiting. He is still on TPN. Today blood pressure 153/99, afebrile, saturating 97% 2 L nasal cannula. Hemoglobin 10.7, hematocrit 34.2, WBC 17.1. Sodium level 129, with a 4.6, BUN 32, creatinine 0.7, magnesium 2.3. We will keep the patient on clear liquid diet. We will discuss case with the General surgery. Hold TPN as the patient with a hyponatremia, also on Lasix 20 mg IV b.i.d.. Continue Reglan and dexamethasone IV. Encourage out of bed to chair. Follow a.m. labs. Mother at bedside, updated, all questions answered. 05/07 patient is seen and examined at bedside, discussed with the RN, no acute events overnight, during my visit comfortably in bed, alert oriented x3, patient is started on GI soft diet yesterday, tolerated well, no nausea, no vomiting, no abdominal discomfort. Sodium level 128, we will discontinue TPN. Continue to follow level in a.m.. Continue to encourage out of bed to chair. Physical therapy to evaluate the patient. Continue to follow oncology input recommend ation terms of Port-A-Cath placement prior to discharge. Currently patient remains on heparin drip. Mother and father at bedside, updated, all questions answered. 05/08 patient is seen and examined at bedside, discussed with the RN, no acute events overnight, comfortably in bed, following commands, tolerating diet, no nausea, no vomiting, no abdominal discomfort. Patient is scheduled for Port-A-Cath placement today by IR. Continue broad-spectrum antibiotics, follow a.m. labs. 05/09 patient is seen and examined at bedside, discussed with the RN, no acute events overnight, comfortably in bed, following commands, tolerating diet, no nausea, no vomiting, no abdominal discomfort. Patient is status post Port-A-Cath placement today by IR 05/08/25, tolerated the procedure well. Continue broad-spectrum antibiotics, follow a.m. labs. We will discuss discharge plan with case management today. Mother at bedside, updated, questions answered. 05/10 the patient has been seen and examined at bedside, discussed with the RN, no acute events overnight, he remains comfortably in bed, alert oriented x3, hemodynamically stable, afebrile, saturating normal on room air, tolerating diet. Heparin drip discontinued, patient is started on Eliquis 5 mg p.o. b.i.d.. Patient getting broad-spectrum IV antibiotics down my visit. Discharge plan discussed with case management, pending approval for the patient to be discharged to alf facility ( [facility]) for continuation of medical care. Mother at bedside during my visit, all questions answered. Dairy Nutritionist(s): CRITICAL CARE, INFECTIOUS DISEASE, GENERAL SURGERY, ORTHOPEDIC SERVICES, HEMATOLOGY/ONCOLOGY SERVICES. Procedure(s): PORT-A-CATH PLACEMENT BY IR Assessment/Plan: FINAL DIAGNOSIS Severe sepsis with MODS, resolved Leukocytosis Gram-positive cocci bacteremia Status post left rib biopsy by IR on 04/26/2025 New right upper lobe spiculated infiltrative mass measuring 5.4 x 4.6 cm i nfiltrating mediastinal pleura and albumin in the right main pulmonary artery Bulky mediastinal lymphadenopathy with the largest node measuring 4 cm involving the right paratracheal, prevascular, and subcarinal stations Multiple bilateral spiculated pulmonary nodules consistent with metastatic disease progression Bilateral marked diffuse adrenal enlargement likely metastatic or hyperplastic Left iliac fossa 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 Right upper extremity DVT involving the axillary and brachial veins Small-bowel obstruction Stage IV colorectal cancer with metastatic disease to the lung, pathology consistent with moderately differentiated adenocarcinoma, POA Discharge Instructions: PATIENT ACCEPTED TO USP FACILITY FOR CONTINUATION OF MEDICAL CARE. AT THE TIME OF MY VISIT MOTHER AND FATHER AT BEDSIDE, DISCUSSED WITH THE MD IMPORTANCE TO FOLLOW UP WITH THE ONCOLOGIST DR. GEE AN OUTPATIENT FOR CHEMOTHERAPY TREATMENT. BOTH AGREED AND UNDERSTOOD THE INFORMATION PROVIDED. Home Medications: No Active Prescriptions or Reported Meds Time spent arranging discharge: 31-60 minutes TITA PETERSON MD May 11, 2025 08:33
== END 2025-05-11 02:10 | DRG 720 ==
LOC: EDH 19:13 → EDHIP 19:14 → 4DH 04-20 00:15 → 2AH 04-22 11:42 → 2BH 04-22 13:18 → 2DH 04-24 10:07 → 3CH 05-03 12:53
PROVIDERS: ADMIT Internal Medicine; ATTEND Internal Medicine
PROC: 5A09357 Assistance with Respiratory Ventilation, Less than 24 Consecutive Hours, Continuous Positive Airway Pressure (ICD-10-PCS; 2025-04-20)
PROC: 5A09357 Assistance with Respiratory Ventilation, Less than 24 Consecutive Hours, Continuous Positive Airway Pressure (ICD-10-PCS; 2025-04-22)
PROC: 5A09357 Assistance with Respiratory Ventilation, Less than 24 Consecutive Hours, Continuous Positive Airway Pressure (ICD-10-PCS; 2025-04-23)
PROC: 0PB13ZX Excision of 1 to 2 Ribs, Percutaneous Approach, Diagnostic (ICD-10-PCS; principal; 2025-04-26)
PROC: 5A09357 Assistance with Respiratory Ventilation, Less than 24 Consecutive Hours, Continuous Positive Airway Pressure (ICD-10-PCS; 2025-04-26)
PROC: 5A09357 Assistance with Respiratory Ventilation, Less than 24 Consecutive Hours, Continuous Positive Airway Pressure (ICD-10-PCS; 2025-04-27)
PROC: 5A09357 Assistance with Respiratory Ventilation, Less than 24 Consecutive Hours, Continuous Positive Airway Pressure (ICD-10-PCS; 2025-04-29)
PROC: 5A09357 Assistance with Respiratory Ventilation, Less than 24 Consecutive Hours, Continuous Positive Airway Pressure (ICD-10-PCS; 2025-04-30)
PROC: 5A09357 Assistance with Respiratory Ventilation, Less than 24 Consecutive Hours, Continuous Positive Airway Pressure (ICD-10-PCS; 2025-05-01)
PROC: 5A09357 Assistance with Respiratory Ventilation, Less than 24 Consecutive Hours, Continuous Positive Airway Pressure (ICD-10-PCS; 2025-05-02)
PROC: 5A09357 Assistance with Respiratory Ventilation, Less than 24 Consecutive Hours, Continuous Positive Airway Pressure (ICD-10-PCS; 2025-05-03)
PROC: 5A09357 Assistance with Respiratory Ventilation, Less than 24 Consecutive Hours, Continuous Positive Airway Pressure (ICD-10-PCS; 2025-05-05)
PROC: 5A09357 Assistance with Respiratory Ventilation, Less than 24 Consecutive Hours, Continuous Positive Airway Pressure (ICD-10-PCS; 2025-05-07)
PROC: 5A09357 Assistance with Respiratory Ventilation, Less than 24 Consecutive Hours, Continuous Positive Airway Pressure (ICD-10-PCS; 2025-05-08)
PROC: 02HV33Z Insertion of Infusion Device into Superior Vena Cava, Percutaneous Approach (ICD-10-PCS; 2025-05-09)
PROC: B5181ZA Fluoroscopy of Superior Vena Cava using Low Osmolar Contrast, Guidance (ICD-10-PCS; 2025-05-09)
PROC: B548ZZA Ultrasonography of Superior Vena Cava, Guidance (ICD-10-PCS; 2025-05-09)
PROC: 5A09357 Assistance with Respiratory Ventilation, Less than 24 Consecutive Hours, Continuous Positive Airway Pressure (ICD-10-PCS; 2025-05-09)
PROC: 5A09357 Assistance with Respiratory Ventilation, Less than 24 Consecutive Hours, Continuous Positive Airway Pressure (ICD-10-PCS; 2025-05-09)
DX: A41.9 Sepsis, unspecified organism (principal); N17.0 Acute kidney failure with tubular necrosis; J96.91 Respiratory failure, unspecified with hypoxia; E46 Unspecified protein-calorie malnutrition; C78.01 Secondary malignant neoplasm of right lung; I82.621 Acute embolism and thrombosis of deep veins of right upper extremity; C78.02 Secondary malignant neoplasm of left lung; I95.9 Hypotension, unspecified; K43.6 Other and unspecified ventral hernia with obstruction, without gangrene; R65.20 Severe sepsis without septic shock; B95.7 Other staphylococcus as the cause of diseases classified elsewhere; B96.89 Other specified bacterial agents as the cause of diseases classified elsewhere; C19 Malignant neoplasm of rectosigmoid junction; Z68.44 Body mass index [BMI] 60.0-69.9, adult; N18.9 Chronic kidney disease, unspecified; I12.9 Hypertensive chronic kidney disease with stage 1 through stage 4 chronic kidney disease, or unspecified chronic kidney disease; E11.22 Type 2 diabetes mellitus with diabetic chronic kidney disease; T82.868A Thrombosis due to vascular prosthetic devices, implants and grafts, initial encounter; I82.A11 Acute embolism and thrombosis of right axillary vein; M17.11 Unilateral primary osteoarthritis, right knee; M65.961 Unspecified synovitis and tenosynovitis, right lower leg; G89.29 Other chronic pain; E87.1 Hypo-osmolality and hyponatremia; J98.11 Atelectasis; E66.01 Morbid (severe) obesity due to excess calories; R62.7 Adult failure to thrive; G47.30 Sleep apnea, unspecified; Y84.8 Other medical procedures as the cause of abnormal reaction of the patient, or of later complication, without mention of misadventure at the time of the procedure; K43.9 Ventral hernia without obstruction or gangrene; I82.611 Acute embolism and thrombosis of superficial veins of right upper extremity; Z90.49 Acquired absence of other specified parts of digestive tract; Z93.3 Colostomy status; Z85.048 Personal history of other malignant neoplasm of rectum, rectosigmoid junction, and anus; Z82.49 Family history of ischemic heart disease and other diseases of the circulatory system; Z80.0 Family history of malignant neoplasm of digestive organs; Z51.5 Encounter for palliative care
CPT/HCPCS: 32405; 36415; 36556; 36561; 36569; 36600; 71045; 71270; 73564; 73723; 74018; 74176; 74178; 74250; 77001; 77012; 80048; 80051; 80053; 80202; 80305; 81001; 82270; 82378; 82435; 82550; 82570; 82803; 82947; 82948; 83540; 83550; 83605; 83735; 83935; 84100; 84132; 84145; 84295; 84443; 84550; 85018; 85025; 85027; 85378; 85610; 85730; 86850; 86880; 86900; 86901; 87040; 87086; 87186; 87426; 87507; 87804; 87880; 88307; 88341; 88342; 93005; 93306; 93356; 93970; 93971; 94640; 94660; 96372; 99152; 99153; 99156; 99157; 99285; C1894; G0378; J0692; J0696; J1100; J1450; J1644; J1650; J1756; J1885; J1938; J2185; J2250; J2405; J2470; J2550; J2765; J3010; J3373; J3475; J3480; J3490; J7120; Q9963; Q9967; A9575; C1751; C1788; G0500; J1308; J3370; J3375